=== PATIENT | female | born 1935 | race Caucasian/White ===

== ENCOUNTER 2016-11-07 10:37 | Inpatient (IN) | payer MEDICARE ==
[~2016-11-07 10:37] MED LIST: VANCOMYCIN/NS 1 GM/250 ML 1 GM/250 ML BAG IV ONE
[2016-11-07] MEDS ORDERED: ROCEPHIN/NS 1 GM/50 ML 1 GM/50 ML BAG IV ONE (12:31)
[2016-11-07] MEDS ORDERED: NACL 0.9% 1000 ML 1,000 ML IV ONE (12:31)
[2016-11-07] MEDS ORDERED: CLEOCIN 900 MG/50 mL 900 MG/50 ML BAG IV ONE (12:31)
--- NOTE | 2016-11-07 13:14 | Emergency Department Report ---
ED Neck Pain/Injury HPI - General Chief Complaint: Neck Pain/Injury Stated Complaint: SWOLLEN NECK Time Seen by Provider: 11/07/16 12:19 Mode of arrival: Ambulatory Limitations: No Limitations - History of Present Illness MD Complaint: neck pain -: Gradual Place: home Radiation: left lateral Severity: moderate Severity scale (0 -10): 5 Quality: sharp Consistency: constant Improves With: none Worsens With: none Associated Symptoms: headache, fever. denies: numbness, weakness, vertigo, difficulty walking, swollen glands, nausea, vomiting - Related Data Home Medications Medication Instructions Recorded Confirmed Last Taken Metformin HCl [Glucophage] 1,000 mg PO BID 12/12/14 11/07/16 05/03/16 cloNIDine [Catapres] 0.2 mg PO QHS 06/30/16 11/07/16 Unknown Losartan-Hctz 100-25 mg Tab 1 mg PO ONCE 11/07/16 11/07/16 Unknown Metoprolol Tartrate 25 mg PO BID 11/07/16 11/07/16 Unknown hydrALAZINE 50 mg PO PRN PRN 11/07/16 11/07/16 Unknown Allergies Allergy/AdvReac Type Severity Reaction Status Date / Time No Known Allergies Allergy Unverified 11/09/13 09:52 ED Review of Systems ROS: Stated complaint: SWOLLEN NECK Other details as noted in HPI Comment: All other systems reviewed and negative ED Past Medical Hx - Past Medical History Previous Medical History?: Yes Hx Hypertension: Yes Hx Diabetes: Yes Hx Deep Vein Thrombosis: Yes - Surgical History Past Surgical History?: No - Social History Smoking Status: Never Smoker Substance Use Type: None - Medications Home Medications: Home Medications Medication Instructions Recorded Confirmed Last Taken Type Metformin HCl [Glucophage] 1,000 mg PO BID 12/12/14 11/07/16 05/03/16 History cloNIDine [Catapres] 0.2 mg PO QHS 06/30/16 11/07/16 Unknown History Losartan-Hctz 100-25 mg Tab 1 mg PO ONCE 11/07/16 11/07/16 Unknown History Metoprolol Tartrate 25 mg PO BID 11/07/16 11/07/16 Unknown History hydrALAZINE 50 mg PO PRN PRN 11/07/16 11/07/16 Unknown History ED Physical Exam - General Limitations: No Limitations General appearance: alert, in no apparent distress - Head Head exam: Present: atraumatic, normocephalic - Eye Eye exam: Present: normal appearance - ENT ENT exam: Present: mucous membranes moist - Neck Neck exam: Present: tenderness, full ROM, other (4x 4 mass in the right submandibular area, tender, warmth and redness) - Respiratory Respiratory exam: Present: normal lung sounds bilaterally. Absent: respiratory distress - Cardiovascular Cardiovascular Exam: Present: regular rate, normal rhythm. Absent: systolic murmur, diastolic murmur, rubs, gallop - GI/Abdominal GI/Abdominal exam: Present: soft, normal bowel sounds - Extremities Exam Extremities exam: Present: normal inspection - Back Exam Back exam: Present: normal inspection - Neurological Exam Neurological exam: Present: alert, oriented X3 - Psychiatric Psychiatric exam: Present: normal affect, normal mood - Skin Skin exam: Present: warm, dry, intact, normal color. Absent: rash ED Course Vital Signs 11/07/16 11/07/16 11/07/16 10:44 12:00 12:15 Temperature 98.3 F Pulse Rate 93 H Respiratory Rate Blood Pressure 155/76 180/63 157/61 O2 Sat by Pulse 100 Oximetry 11/07/16 11/07/16 11/07/16 12:30 12:45 13:01 Temperature Pulse Rate Respiratory Rate Blood Pressure 159/66 170/66 127/67 O2 Sat by Pulse Oximetry 11/07/16 11/07/16 11/07/16 14:00 14:16 15:55 Temperature Pulse Rate Respiratory 18 Rate Blood Pressure 216/64 166/67 O2 Sat by Pulse Oximetry 11/07/16 16:10 Temperature Pulse Rate Respiratory Rate Blood Pressure 204/69 O2 Sat by Pulse Oximetry ED Medical Decision Making - Lab Data Result diagrams: 11/07/16 13:36 11/07/16 13:36 Critical care attestation.: If time is entered above; I have spent that time in minutes in the direct care of this critically ill patient, excluding procedure time. ED Disposition Clinical Impression: Abscess of jaw, left, Osteomyelitis of jaw Disposition: OP ADMITTED IP TO THIS HOSP Is pt being admited?: Yes Does the pt Need Aspirin: No Condition: Good Referrals: PRIMARY CARE, [Referring] - 3-5 Days Time of Disposition: 17:13
[2016-11-07 13:54] LABS: Basophils % (Auto) 0.7 % (0.0-1.8); Eosinophils % (Auto) 1.7 % (0.0-4.3); Hematocrit 34.5 % (30.3-42.9); Hemoglobin 11.2 gm/dl (10.1-14.3); Mean Corpuscular HGB Conc 33 % (30-34); Mean Corpuscular Hemoglobin 30 pg (28-32); Mean Corpuscular Volume 92 fl (79-97); Platelet Count 369 K/mm3 (140-440); Red Blood Count 3.75 M/mm3 (3.65-5.03); Red Cell Distribution Width 14.2 % (13.2-15.2)
[2016-11-07 14:03] LABS: Alanine Aminotransferase 8 units/L (7-56); Albumin 3.4 g/dL (3.9-5); Anion Gap 18 mmol/L; Bilirubin,Total < 0.20 mg/dL (0.1-1.2); Blood Urea Nitrogen 22 mg/dL (7-17); Calcium 8.8 mg/dL (8.4-10.2); Carbon Dioxide 22 mmol/L (22-30); Chloride 100.6 mmol/L (98-107); Glucose 251 mg/dL (65-100); Potassium 4.7 mmol/L (3.6-5.0); Sodium 136 mmol/L (137-145); Total Protein 6.7 g/dL (6.3-8.2)
[2016-11-07] MEDS ORDERED: NACL ONE (14:11)
[2016-11-07 14:44] LABS: Alkaline Phosphatase 102 units/L (35-129)
--- NOTE | 2016-11-07 15:13 | Cat Scan Report ---
FINAL REPORT EXAM: CT FACIAL BONES W CON HISTORY: right submandibular mass TECHNIQUE: CT scan of the facial bones with IV contrast. Multiplanar reformations. PRIORS: None. FINDINGS: Mandible on the left is abnormal, with some areas of sclerosis and lucency. There is cortical disruption of the medial mandible involving the mandibular body and the mandibular angle. Extending from this area, caudally and posteriorly, is a masslike lesion, which appears extensively inflamed, with peripheral enhancement and central low density. Maximal cross-sectional size is about 3.5 x 2.8 cm, which sits posterolateral to the left submandibular gland. Several nonenlarged submandibular lymph nodes on the left. No pathologically enlarged lymph nodes seen. No mucosal lesion. Normal appearance of the thyroid gland. Normal appearance of the larynx. Normal epiglottis and bilateral aryepiglottic folds. IMPRESSION: 1. Findings may represent osteomyelitis of the mandible on the left, with adjacent soft tissue abscess. Squamous cell carcinoma with local soft tissue extension is an alternative possibility.
[2016-11-07] MEDS ORDERED: TYLENOL PO PRN (16:39)
[2016-11-07] MEDS ORDERED: DULCOLAX PR PRN (16:39)
[2016-11-07] MEDS ORDERED: DUONEB 0.5 MG-3 MG/3 ML SOLN IH PRN (16:39)
[2016-11-07] MEDS ORDERED: MILK OF MAGNESIA PO PRN (16:39)
[2016-11-07] MEDS ORDERED: ZOFRAN IV PRN (16:39)
[2016-11-07] MEDS ORDERED: VANCOMYCIN/NS 1 GM/250 ML 1 GM/250 ML BAG IV ONE (16:51)
[2016-11-07] MEDS ORDERED: PROVENTIL IH PRN (16:51)
[2016-11-07] MEDS ORDERED: NACL 0.9% 1000 ML IV ONE (16:51)
[2016-11-07] MEDS ORDERED: VANCOMYCIN VIAL 1,000 MG in NACL 0.9% 500 ML 500 ML IV ONE (16:51)
--- NOTE | 2016-11-07 16:54 | History and Physical Report ---
History of Present Illness Chief complaint: My neck hurts History of present illness: 81 YO Female with HTN, DM, presents to ED for evaluation. Pt unable to speak sw[place]ish, Patient niece is at bedside and serves as sand wheeler. Pt has experienced pain in her neck for the past week, with worsening symptoms over the past 48 hours. Pain in 3/10, localized to left jaw, worsened with eating, jaw movement, relieved with rest. Pt denies radiation. No reports of fever, chills, CP, Palpitations, NVD, difficulty swallowing, shortness of breath, hoarseness, choking, drooling, cough, unintentional weight loss, night sweats, hematuria, BRBPR, vertigo, bone pain, prolonged immobility/travel, foreign travel, or recent ill contacts. Past History Past Medical History: diabetes, hypertension Past Surgical History: No surgical history, Other (reviewed) Social history: , lives with family. denies: smoking, alcohol abuse, prescription drug abuse Family history: diabetes, hypertension Medications and Allergies Allergies Allergy/AdvReac Type Severity Reaction Status Date / Time No Known Allergies Allergy Unverified 11/09/13 09:52 Home Medications Medication Instructions Recorded Confirmed Last Taken Type Metformin HCl [Glucophage] 1,000 mg PO BID 12/12/14 11/07/16 05/03/16 History cloNIDine [Catapres] 0.2 mg PO QHS 06/30/16 11/07/16 Unknown History Losartan-Hctz 100-25 mg Tab 1 mg PO ONCE 11/07/16 11/07/16 Unknown History Metoprolol Tartrate 25 mg PO BID 11/07/16 11/07/16 Unknown History hydrALAZINE 50 mg PO PRN PRN 11/07/16 11/07/16 Unknown History Active Meds: Active Medications Acetaminophen (Tylenol) 650 mg PO Q4H PRN PRN Reason: Pain MILD(1-3)/Fever >100.5/MEHTA Albuterol (Proventil) 2.5 mg IH Q4HRT PRN PRN Reason: Shortness Of Breath Bisacodyl (Dulcolax) 10 mg VA QDAY PRN PRN Reason: Constipation unrelieved by MOM Clonidine HCl (Catapres) 0.2 mg PO QHS ANAHY Sodium Chloride (Nacl 0.45% 1000 Ml) 1,000 mls @ 100 mls/hr IV DIRECT ANAHY Cefepime HCl (Maxipime/Ns 1 Gm/100 Ml) 1 gm in 100 mls @ 200 mls/hr IV Q6HR ANAHY PRN Reason: Protocol Levofloxacin/Dextrose (Levaquin 750mg/150ml) 750 mg in 150 mls @ 100 mls/hr IV Q24HR ANAHY PRN Reason: Protocol Vancomycin HCl 1,000 mg/ (Sodium Chloride) 500 mls @ 334 mls/hr IV ONCE ONE PRN Reason: Protocol Stop: 11/07/16 18:20 Magnesium Hydroxide (Milk Of Magnesia) 30 ml PO Q4H PRN PRN Reason: Constipation Miscellaneous Medication (Hydralazine) 50 mg PO Q12HR ANAHY Miscellaneous Medication (Losartan-Hctz 100-25 Mg Tab) 1 mg PO ONCE ANAHY Miscellaneous Medication (Metoprolol Tartrate) 25 mg PO BID ANAHY Ondansetron HCl (Zofran) 4 mg IV Q8H PRN PRN Reason: N/V unrelieved by Reglan Sodium Chloride (Nacl 0.9% 1000 Ml) 1,560 ml 30 ml/kg (1560 ml) IV ONCE ONE Stop: 11/07/16 16:52 Vancomycin HCl (Vancomycin Pharmacy To Dose) 1 each IV PKCONSULT ANAHY PRN Reason: Protocol Review of Systems Constitutional: other (jaw pain) Exam - Constitutional Vitals: Temp Pulse Resp BP Pulse Ox 98.3 F 93 H 18 204/69 100 11/07/16 10:44 11/07/16 10:44 11/07/16 15:55 11/07/16 16:10 11/07/16 10:44 General appearance: Present: no acute distress - EENT Eyes: Present: PERRL ENT: hearing intact, clear oral mucosa, other (Left jaw erythema,edema at angle of mandible, no fluctuance, ) - Neck Neck: Present: supple, normal ROM - Respiratory Respiratory effort: normal Respiratory: bilateral: CTA - Cardiovascular Heart Sounds: Present: S1 & S2. Absent: rub, click - Extremities Extremities: pulses symmetrical, No edema Peripheral Pulses: within normal limits - Abdominal General gastrointestinal: Present: soft, non-tender, non-distended, normal bowel sounds Female genitourinary: Present: normal - Integumentary Integumentary: Present: clear, warm, dry - Musculoskeletal Musculoskeletal: gait normal, strength equal bilaterally - Psychiatric Psychiatric: appropriate mood/affect, intact judgment & insight - Neurologic Neurologic: CNII-XII intact, moves all extremities Results - Labs CBC & Chem 7: 11/07/16 13:36 11/07/16 13:36 Labs: Abnormal lab results 11/07/16 11/07/16 Range/Units 13:36 13:36 WBC 13.0 H (4.5-11.0) K/mm3 [place] % (Auto) 8.2 H (0.0-7.3) % [place] # 1.1 H (0.0-0.8) K/mm3 Seg Neutrophils # 8.7 H (1.8-7.7) K/mm3 Sodium 136 L (137-145) mmol/L BUN 22 H (7-17) mg/dL Glucose 251 H (65-100) mg/dL Albumin 3.4 L (3.9-5) g/dL Assessment and Plan - Patient Problems (1) Sepsis Current Visit: Yes Status: Acute Qualifiers: Sepsis type: S Plan to address problem: IV abx, IVF, supportive care, serial lactate levels, blood cultures, (2) Abscess of jaw, left Current Visit: Yes Status: Acute Plan to address problem: IV abx, supportive care, surgery consult (3) Osteomyelitis of jaw Current Visit: Yes Status: Acute Plan to address problem: IV abx, ivf, supportive care, (4) Accelerated hypertension Current Visit: Yes Status: Acute Plan to address problem: resume home medication, supportive care, monitor bp q shift (5) Diabetes Current Visit: Yes Status: Acute Qualifiers: Diabetes mellitus type: D Diabetes mellitus complication status: D Diabetes mellitus complication detail: D Diabetic retinopathy severity: D Proliferative retinopathy type: P Diabetes mellitus macular edema: D 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
[2016-11-07] MEDS ORDERED: VANCOMYCIN PHARMACY TO DOSE IV SCH (17:00)
[2016-11-07] MEDS ORDERED: LOSARTAN HCTZ PO SCH (17:00)
[2016-11-07] MEDS ORDERED: MAXIPIME/NS 1 GM/100 ML 1 GM/100 ML BAG IV SCH (18:00)
[2016-11-07] MEDS ORDERED: MAXIPIME IV SCH (18:00)
[2016-11-07] MEDS ORDERED: NACL 0.9% IV SCH (18:00)
[2016-11-07] MEDS: COZAAR PO SCH (18:04)
[2016-11-07] MEDS: HCTZ PO SCH (18:05)
[2016-11-07] MEDS ORDERED: D50W (25GM) IV PRN (18:12)
--- NOTE | 2016-11-07 18:42 | Admit Criteria Form ---
Admission Criteria Documentation: SEPSIS and OTHER FEBRILE ILLNESS, W/O FOCAL INFECTION Clinical Indications for Admission to Inpatient Care ( Place 'X' for any and all applicable criteria): Admission is indicated for ANY ONE of the following (1)(2)(3)(4): [ ] I. Bacteremia [X ]II. Suspected or identified specific infection requiring hospitalization (eg, meningitis, endocarditis) [ ]III. Hemodynamic instability [ ]IV. Altered mental status [ ]V. Failure or unavailability of outpatient antimicrobial treatment [ ]. Hypoxemia [ ]VII. Seizures [ ]VIII. High-risk febrile neutropenia [ ]IX. Need for parenteral antibiotic in patient who is likely to abuse vascular access device (eg, injection drug user) [A](7) [ ]X. Temperature greater than 104.9 degrees F (40.5 degrees C) (oral) [X ]XI. Inpatient admission required rather than observation care because of ANY ONE of the following: [ ]1) Specific infection identified that is too severe for outpatient treatment or observation care trial [ ]2) Metabolic disorder (eg, hypoglycemia, hyperglycemia, metabolic acidosis) that is severe or persistent [ ]3) Temperature greater than 103.1 degrees F (39.5 degrees C) ( oral) that is not responsive to observation care treatment [ ]4) IV fluid to replace significant ongoing (eg, for over 24 hours) losses (> 3 L/m2 per day) [ ]5) Supplemental oxygen or respiratory treatments for over 24 hours that is performable only in acute inpatient setting [X ]6) Parenteral nutrition regimen need that must be implemented on inpatient basis [ ]7) Strict or protective (eg, laminar flow) isolation [ X]8) Other condition, treatment or monitoring requiring inpatient admission Extended stay beyond goal length of stay may be needed for(1)(3) [ ]a) Sepsis or septic shock(22) [ ]b) Positive blood cultures [ ]c) Insufficient oral intake [ ]d) High-risk febrile neutropenia(29)(30) [ ]e) Continued fever and clinical instability [ ]f) Clinically active comorbid illness (e.g,heart failure, renal failure , diabetes) The original [facility] content created by [employer] has been revised. The portions of the content which have been revised are identified through the use of italic text or in bold, and [employer] has neither reviewed nor approved the modified material. All other unmodified content is copyright [facility]. Please see references footnoted in the original [facility] edition 2016 Admission Criteria Met: Yes
[2016-11-07] MEDS ORDERED: CATAPRES ONE (19:13)
[2016-11-07] MEDS ORDERED: NON-FORMULARY (Metoprolol Tartrate 25 MG) PO SCH (22:00)
[2016-11-07] MEDS ORDERED: NON-FORMULARY (Hydralazine 50 MG) PO SCH (22:00)
[2016-11-08] MEDS: LOPRESSOR PO SCH ×3 (00:03→23:00)
[2016-11-08] MEDS: CATAPRES PO SCH ×2 (00:04→22:59)
[2016-11-08] MEDS: MAXIPIME/NS 1 GM/100 ML 1 GM/100 ML BAG IV SCH ×3 (00:04→22:57)
[2016-11-08] MEDS: APRESOLINE PO SCH ×3 (00:04→22:58)
[2016-11-08] MEDS: NACL 0.45% 1000 ML 1,000 ML IV SCH ×2 (00:05→16:12)
[2016-11-08 07:20] LABS: Basophils % (Auto) 0.7 % (0.0-1.8); Eosinophils % (Auto) 2.2 % (0.0-4.3); Hematocrit 29.7 % (30.3-42.9); Mean Corpuscular HGB Conc 34 % (30-34); Mean Corpuscular Hemoglobin 31 pg (28-32); Mean Corpuscular Volume 91 fl (79-97); Platelet Count 334 K/mm3 (140-440); Red Blood Count 3.25 M/mm3 (3.65-5.03); Red Cell Distribution Width 14.1 % (13.2-15.2); White Blood Count 10.5 K/mm3 (4.5-11.0)
[2016-11-08 07:39] LABS: Anion Gap 18 mmol/L; BUN/Creatinine Ratio 15.55; Blood Urea Nitrogen 14 mg/dL (7-17); Calcium 8.3 mg/dL (8.4-10.2); Carbon Dioxide 20 mmol/L (22-30); Chloride 105.3 mmol/L (98-107); Glucose 180 mg/dL (65-100); Sodium 139 mmol/L (137-145)
[2016-11-08] MEDS ORDERED: VANCOMYCIN/NS 1 GM/250 ML 1 GM/250 ML BAG IV ONE ×2 (08:00)
[2016-11-08] MEDS ORDERED: LEVAQUIN 750MG/150ML 750 MG/150 ML BAG IV SCH ×2 (10:00)
[2016-11-08] MEDS: NOVOLOG SUB-Q SCH ×4 (10:19→23:17)
[2016-11-08] MEDS: HCTZ PO SCH (10:26)
[2016-11-08] MEDS: COZAAR PO SCH (10:29)
--- NOTE | 2016-11-08 12:35 | Progress Note ---
Assessment and Plan Assessment and plan: Sepsis Abscess of the left jaw Osteomyelitis of the jaw Medical hypertension Diabetes mellitus - IV antibiotics, IV fluid, supportive care - Surgery consult was placed but Dr boyer said he is not going to do the procedure - I put a consult for IR for abscess drainage, biopsy, culture - Resume Home BP medications - Patient is on Sliding scale insulin, accu check Prophylaxis - Lovenox History Interval history: Patient was seen and evaluated this morning, patient doesn't speak [place], she has swelling and tenderness on the left jaw. Hospitalist Physical - Physical exam Narrative exam: Not in cardiopulmonary distress. The patient appeared well nourished and normally developed. Vital signs as documented. Head exam is unremarkable. No scleral icterus . Neck swelling and tenderness on the left jaw. Lungs are clear to auscultation. Cardiac exam reveals regular rate and Rhythm. First and second heart sounds normal. No murmurs, rubs or gallops. Abdominal exam reveals normal bowel sounds, no masses, no organomegaly and no aortic enlargement. Extremities are nonedematous and both femoral and pedal pulses are normal. 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 No focal weakness. - Constitutional Vitals: Temp Pulse Resp BP Pulse Ox 98.8 F 82 18 179/74 97 11/08/16 07:00 11/08/16 10:29 11/08/16 07:00 11/08/16 10:29 11/08/16 11:27 General appearance: Present: no acute distress Results - Labs CBC & Chem 7: 11/08/16 06:47 11/08/16 06:47 Labs: Laboratory Last Values WBC 10.5 K/mm3 (4.5-11.0) 11/08/16 06:47 RBC 3.25 M/mm3 (3.65-5.03) L 11/08/16 06:47 Hgb 10.0 gm/dl (10.1-14.3) L 11/08/16 06:47 Hct 29.7 % (30.3-42.9) L 11/08/16 06:47 MCV 91 fl (79-97) 11/08/16 06:47 MCH 31 pg (28-32) 11/08/16 06:47 MCHC 34 % (30-34) 11/08/16 06:47 RDW 14.1 % (13.2-15.2) 11/08/16 06:47 Plt Count 334 K/mm3 (140-440) 11/08/16 06:47 Lymph % (Auto) 24.0 % (13.4-35.0) 11/08/16 06:47 [place] % (Auto) 6.2 % (0.0-7.3) 11/08/16 06:47 Eos % (Auto) 2.2 % (0.0-4.3) 11/08/16 06:47 Baso % (Auto) 0.7 % (0.0-1.8) 11/08/16 06:47 Lymph # 2.5 K/mm3 (1.2-5.4) 11/08/16 06:47 [place] # 0.7 K/mm3 (0.0-0.8) 11/08/16 06:47 Eos # 0.2 K/mm3 (0.0-0.4) 11/08/16 06:47 Baso # 0.1 K/mm3 (0.0-0.1) 11/08/16 06:47 Seg Neutrophils % 66.9 % (40.0-70.0) 11/08/16 06:47 Seg Neutrophils # 7.0 K/mm3 (1.8-7.7) 11/08/16 06:47 Sodium 139 mmol/L (137-145) 11/08/16 06:47 Potassium 4.0 mmol/L (3.6-5.0) 11/08/16 06:47 Chloride 105.3 mmol/L (98-107) 11/08/16 06:47 Carbon Dioxide 20 mmol/L (22-30) L 11/08/16 06:47 Anion Gap 18 mmol/L 11/08/16 06:47 BUN 14 mg/dL (7-17) 11/08/16 06:47 Creatinine 0.9 mg/dL (0.7-1.2) 11/08/16 06:47 Estimated GFR > 60 ml/min 11/08/16 06:47 BUN/Creatinine Ratio 15.55 % 11/08/16 06:47 Glucose 180 mg/dL (65-100) H 11/08/16 06:47 POC Glucose 185 (70-105) H 11/08/16 06:18 Lactic Acid 1.20 mmol/L (0.7-2.0) 11/08/16 06:47 Calcium 8.3 mg/dL (8.4-10.2) L 11/08/16 06:47 Total Bilirubin < 0.20 mg/dL (0.1-1.2) 11/07/16 13:36 AST 12 units/L (5-40) 11/07/16 13:36 ALT 8 units/L (7-56) 11/07/16 13:36 Alkaline Phosphatase 102 units/L (35-129) 11/07/16 13:36 Total Protein 6.7 g/dL (6.3-8.2) 11/07/16 13:36 Albumin 3.4 g/dL (3.9-5) L 11/07/16 13:36 Albumin/Globulin Ratio 1.0 % 11/07/16 13:36 - Imaging and Cardiology CT Scan - head: report reviewed (Left jaw abscess/mass)
[2016-11-08] MEDS: APRESOLINE IV PRN ×2 (14:51→18:29)
[2016-11-08] MEDS: VANCOMYCIN/NS 1 GM/250 ML 1 GM/250 ML BAG IV SCH (16:14)
[2016-11-09 07:58] LABS: Basophils % (Auto) 0.5 % (0.0-1.8); Eosinophils % (Auto) 1.6 % (0.0-4.3); Hematocrit 32.5 % (30.3-42.9); Hemoglobin 10.8 gm/dl (10.1-14.3); Mean Corpuscular HGB Conc 33 % (30-34); Mean Corpuscular Hemoglobin 30 pg (28-32); Mean Corpuscular Volume 90 fl (79-97); Platelet Count 373 K/mm3 (140-440); Red Blood Count 3.62 M/mm3 (3.65-5.03); Red Cell Distribution Width 14.2 % (13.2-15.2); White Blood Count 12.7 K/mm3 (4.5-11.0)
[2016-11-09 08:04] LABS: Calcium 8.8 mg/dL (8.4-10.2); Chloride 103.3 mmol/L (98-107); Potassium 3.7 mmol/L (3.6-5.0)
[2016-11-09] MEDS: NOVOLOG SUB-Q SCH ×2 (08:36→12:44)
[2016-11-09] MEDS: MAXIPIME/NS 1 GM/100 ML 1 GM/100 ML BAG IV SCH (09:30)
[2016-11-09] MEDS: APRESOLINE PO SCH (09:34)
[2016-11-09] MEDS: HCTZ PO SCH (09:35)
[2016-11-09] MEDS: LOPRESSOR PO SCH (09:35)
[2016-11-09] MEDS: COZAAR PO SCH (09:39)
[2016-11-09] MEDS: VANCOMYCIN/NS 1 GM/250 ML 1 GM/250 ML BAG IV SCH (12:19)
[2016-11-09] MEDS: APRESOLINE IV PRN (12:41)
--- NOTE | 2016-11-09 13:07 | Progress Note ---
Assessment and Plan Assessment and plan: Left jaw abscess. Continue Cefepime Levaquin and vancomycin. For IR drainage, biopsy today. Sepsis. On multiple Antibiotics. Diabetes mellitus type 2. Fingerstick glucose before every meal and at bedtime Full code status Hypertensive urgency. Increase dose of Clonidine to 0.2 mg by mouth every 12 hours. Add hydralazine 20 mg IV every 4 hours when necessary leukocytosis History Interval history: Pain, mass left neck and jaw area Hospitalist Physical - Physical exam Narrative exam: Gen appearance: Not in acute distress, HEENT: Normocephalic, atraumatic Neck:Large mass left part of neck to jaw, tender Lungs : Clear to auscultation bilaterally, No crackles or wheeze Heart :S1-S2 regular, no murmurs, rubs or gallop Abdomen: soft non-tender, non-distended,normal bowel sounds Extremities:no edema no clubbing or cyanosis, Neuro: Awake, alert, - Constitutional Vitals: Temp Pulse Resp BP Pulse Ox 98.9 F 78 20 199/84 98 11/09/16 11:00 11/09/16 11:00 11/09/16 11:00 11/09/16 12:41 11/09/16 07:00 General appearance: Present: no acute distress Results - Labs CBC & Chem 7: 11/09/16 07:16 11/09/16 07:16 Labs: Laboratory Last Values WBC 12.7 K/mm3 (4.5-11.0) H 11/09/16 07:16 RBC 3.62 M/mm3 (3.65-5.03) L 11/09/16 07:16 Hgb 10.8 gm/dl (10.1-14.3) 11/09/16 07:16 Hct 32.5 % (30.3-42.9) 11/09/16 07:16 MCV 90 fl (79-97) 11/09/16 07:16 MCH 30 pg (28-32) 11/09/16 07:16 MCHC 33 % (30-34) 11/09/16 07:16 RDW 14.2 % (13.2-15.2) 11/09/16 07:16 Plt Count 373 K/mm3 (140-440) 11/09/16 07:16 Lymph % (Auto) 19.6 % (13.4-35.0) 11/09/16 07:16 [place] % (Auto) 7.3 % (0.0-7.3) 11/09/16 07:16 Eos % (Auto) 1.6 % (0.0-4.3) 11/09/16 07:16 Baso % (Auto) 0.5 % (0.0-1.8) 11/09/16 07:16 Lymph # 2.5 K/mm3 (1.2-5.4) 11/09/16 07:16 [place] # 0.9 K/mm3 (0.0-0.8) H 11/09/16 07:16 Eos # 0.2 K/mm3 (0.0-0.4) 11/09/16 07:16 Baso # 0.1 K/mm3 (0.0-0.1) 11/09/16 07:16 Seg Neutrophils % 71.0 % (40.0-70.0) H 11/09/16 07:16 Seg Neutrophils # 9.0 K/mm3 (1.8-7.7) H 11/09/16 07:16 Sodium 137 mmol/L (137-145) 11/09/16 07:16 Potassium 3.7 mmol/L (3.6-5.0) 11/09/16 07:16 Chloride 103.3 mmol/L (98-107) 11/09/16 07:16 Carbon Dioxide 19 mmol/L (22-30) L 11/09/16 07:16 Anion Gap 18 mmol/L 11/09/16 07:16 BUN 10 mg/dL (7-17) 11/09/16 07:16 Creatinine 1.0 mg/dL (0.7-1.2) 11/09/16 07:16 Estimated GFR 53 ml/min 11/09/16 07:16 BUN/Creatinine Ratio 10.00 % 11/09/16 07:16 Glucose 162 mg/dL (65-100) H 11/09/16 07:16 POC Glucose 145 (70-105) H 11/09/16 11:52 Lactic Acid 1.20 mmol/L (0.7-2.0) 11/08/16 06:47 Calcium 8.8 mg/dL (8.4-10.2) 11/09/16 07:16 Total Bilirubin < 0.20 mg/dL (0.1-1.2) 11/07/16 13:36 AST 12 units/L (5-40) 11/07/16 13:36 ALT 8 units/L (7-56) 11/07/16 13:36 Alkaline Phosphatase 102 units/L (35-129) 11/07/16 13:36 Total Protein 6.7 g/dL (6.3-8.2) 11/07/16 13:36 Albumin 3.4 g/dL (3.9-5) L 11/07/16 13:36 Albumin/Globulin Ratio 1.0 % 11/07/16 13:36
[2016-11-09] MEDS ORDERED: APRESOLINE IV PRN (15:10)
[2016-11-09] MEDS ORDERED: CATAPRES PO SCH (16:00)
[2016-11-09 16:51] VITALS: BP 112/61
--- NOTE | 2016-11-09 21:42 | Discharge Summary ---
Providers - Providers Date of Admission: 11/07/16 16:39 Attending physician: JAYMIE COFFEY 11/07/16 16:53 Consult to Physician [CONS] Routine Consulting Provider: SHERRI MCCULLOUGH Reason For Exam: jaw abscess Place consult to:: general surgery Notified:: office Phone number called:: [phone] Was contact made?: Yes If yes, spoke with:: jerry Time called:: 09:45 Comment:: office called back @ 0914 to say that is not speciality/need ent or plastic 11/08/16 12:28 Consult to Physician [CONS] Routine Consulting Provider: LISSET ORTIZ Reason For Exam: left jaw abscess/ Mass Place consult to:: Interventional Radiology Notified:: DR. RICKS Phone number called:: INHOUSE Was contact made?: Yes If yes, spoke with:: SR. RICKS Time called:: 09:07 Comment:: drainage/biopsy/ PAT NOTIFIED Primary care physician: GE JESSICA Hospitalization Condition: Good Disposition: LEFT AGAINST MEDICAL ADVICE Exam - Constitutional Vitals: Temp Pulse Resp BP Pulse Ox 99.7 F H 71 71 H 112/61 98 11/09/16 16:00 11/09/16 16:00 11/09/16 16:00 11/09/16 16:00 11/09/16 13:01 Plan Follow up with: PRIMARY CAREMD [Referring] - 3-5 Days
[2016-11-09] MEDS ORDERED: HEPARIN SUB-Q SCH (22:00)
--- NOTE | 2016-11-10 07:32 | XRay Report ---
PORTABLE CHEST: SOB An AP portable view of the chest demonstrates a normal cardiac contour considering the limits of this technique. The lungs are clear with no evidence of infiltrate, fluid or failure. IMPRESSION: Normal portable chest.
--- NOTE | 2016-11-11 08:23 | Ultrasound Report ---
Procedure: Limited sonography of the left jaw and submandibular region. Indication: This patient presented with fevers and pain along her left mandible. CT of the face demonstrated a possible left submandibular abscess. Ultrasound-guided aspiration was requested to further guide treatment. Technique: Ly scale and color Doppler sonography. Findings: Limited sonography of the left submandibular region demonstrates extensive superficial soft tissue fluid infiltration, consistent with edema. There is no drainable fluid collection or solid entity to biopsy.
== END 2016-11-09 20:05 | disposition left against medical advice (07) | DRG 872 ==
LOC: ED 10:37 → 3A 16:39
PROVIDERS: ADMIT Internal Medicine; ATTEND Internal Medicine
DX: A41.9 Sepsis, unspecified organism (principal); M86.8X9 Other osteomyelitis, unspecified sites; E11.9 Type 2 diabetes mellitus without complications; M27.2 Inflammatory conditions of jaws; I16.0 Hypertensive urgency; I10 Essential (primary) hypertension; Z79.84 Long term (current) use of oral hypoglycemic drugs; Z86.718 Personal history of other venous thrombosis and embolism; Z79.01 Long term (current) use of anticoagulants; Z82.49 Family history of ischemic heart disease and other diseases of the circulatory system; Z83.3 Family history of diabetes mellitus; Z53.21 Procedure and treatment not carried out due to patient leaving prior to being seen by health care provider
CPT/HCPCS: 36415; 70487; 71010; 76536; 80048; 80053; 82140; 82962; 85025; 87040; 94760; 96361; 96365; 96368; J0360; J0692; J0696; J1815; J1956; J3370; J7030; Q9967

== ENCOUNTER 2017-12-28 07:52 | Inpatient (IN) | payer MEDICARE ==
[2017-12-28] MEDS ORDERED: D50W (25GM) Syringe IV ONE ×2 (09:19→11:00)
[2017-12-28 09:56] LABS: Hematocrit 37.3 % (30.3-42.9); Hemoglobin 12.3 gm/dl (10.1-14.3); Mean Corpuscular HGB Conc 33 % (30-34); Mean Corpuscular Hemoglobin 29 pg (28-32); Mean Corpuscular Volume 89 fl (79-97); Platelet Count 405 K/mm3 (140-440); Red Blood Count 4.19 M/mm3 (3.65-5.03)
--- NOTE | 2017-12-28 10:15 | Emergency Department Report ---
HPI - General Chief Complaint: Hypoglycemia Time Seen by Provider: 12/28/17 09:56 - HPI HPI: Room 8 The patient is a 82-year-old female presenting with chief complaint of altered mental status. The patient last took her metformin at 07:00 yesterday. This morning at 04:00 the patient ate a small amount of rice. Family states at 06: 00 the patient took her Lyrica was talking to family. Approximately 06:015/06: 30 the patient became "unresponsive." Family states the patient was looking around reaching for objects that were not there. The patient was mumbling and not making sense. More family was called and eventually alerted EMS. Upon arrival EMS found the patient to be hypoglycemic with a glucose of 27. Patient was administered 250 mils of D10 and the blood sugar reportedly increased to 210 and the patient improved. In the ED the patient was found to be hypoglycemic again at 42 and so an amp of D50 was administered. The patient is back to her mental baseline and does not have any complaints. Family states that the patient has had "stiff legs" for 2 months. 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 Not currently on anticoagulation) - Surgical History Past Surgical History?: No - Family History Family history: no significant - Social History Smoking Status: Never Smoker Substance Use Type: None - Medications Home Medications: Home Medications Medication Instructions Recorded Confirmed Last Taken Type Metformin HCl [Glucophage] 1,000 mg PO BID 12/12/14 12/28/17 05/03/16 History Pregabalin [Lyrica] 75 mg PO BID 12/28/17 12/28/17 Unknown History amLODIPine [Norvasc] 10 mg PO DAILY 12/28/17 12/28/17 Unknown History cloNIDine [Catapres] 0.1 mg PO BID 12/28/17 12/28/17 Unknown History glipiZIDE [Glucotrol] 10 mg PO QDAY 12/28/17 12/28/17 Unknown History glipiZIDE [glipiZIDE ER] 5 mg PO QAM 12/28/17 12/28/17 Unknown History ED Review of Systems ROS: Stated complaint: HYPOGLYCEMIA Other details as noted in HPI Constitutional: no symptoms reported Eyes: denies: eye pain ENT: denies: throat pain Cardiovascular: denies: chest pain Endocrine: other (hypoglycemia) Gastrointestinal: denies: abdominal pain Genitourinary: denies: dysuria Musculoskeletal: denies: back pain Neurological: confusion. denies: headache Physical Exam - Physical Exam Vital Signs: Vital Signs 12/28/17 12/28/17 12/28/17 08:09 08:15 08:30 Temperature Pulse Rate 90 87 Respiratory 17 16 15 Rate Blood Pressure 187/68 187/68 O2 Sat by Pulse 100 Oximetry 12/28/17 12/28/17 12/28/17 08:35 08:45 09:01 Temperature 97.8 F Pulse Rate 90 85 89 Respiratory 16 18 17 Rate Blood Pressure 187/70 185/61 188/73 O2 Sat by Pulse 99 99 99 Oximetry Physical Exam: GENERAL: The patient is well-developed well-nourished female lying on stretcher not appearing to be in acute distress. [] HEENT: Normocephalic. Atraumatic. Extraocular motions are intact. Patient has moist mucous membranes. NECK: Supple. Trachea midline CHEST/LUNGS: Clear to auscultation. There is no respiratory distress noted. HEART/CARDIOVASCULAR: Regular. There is no tachycardia. There is a 3/6 systolic murmur. ABDOMEN: Abdomen is soft, nontender. Patient has normal bowel sounds. There is no abdominal distention. SKIN: There is pale erythema surrounding bilateral lower extremities. There is trace bilateral lower extremity pretibial edema. There is no diaphoresis. NEURO: The patient is awake, alert, and oriented. The patient is cooperative. The patient has no focal neurologic deficits. The patient has normal speech. 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 There is no evidence of acute injury. ED Course Vital Signs 12/28/17 12/28/17 12/28/17 08:09 08:15 08:30 Temperature Pulse Rate 90 87 Respiratory 17 16 15 Rate Blood Pressure 187/68 187/68 O2 Sat by Pulse 100 Oximetry 12/28/17 12/28/17 12/28/17 08:35 08:45 09:01 Temperature 97.8 F Pulse Rate 90 85 89 Respiratory 16 18 17 Rate Blood Pressure 187/70 185/61 188/73 O2 Sat by Pulse 99 99 99 Oximetry ED Medical Decision Making - Lab Data Result diagrams: 12/28/17 09:30 12/28/17 09:30 Laboratory Tests 12/28/17 12/28/17 12/28/17 08:37 09:30 09:30 WBC 22.2 H RBC 4.19 Hgb 12.3 Hct 37.3 MCV 89 MCH 29 MCHC 33 RDW 15.0 Plt Count 405 Add Manual Diff Complete Total Counted 100 Seg Neuts % (Manual) 79.0 H Band Neutrophils % 5.0 Lymphocytes % (Manual) 9.0 L Reactive Lymphs % (Man) 0 Monocytes % (Manual) 7.0 Eosinophils % (Manual) 0 Basophils % (Manual) 0 Metamyelocytes % 0 Myelocytes % 0 Promyelocytes % 0 Blast Cells % 0 Nucleated RBC % Not Reportable Seg Neutrophils # Man 17.5 H Band Neutrophils # 1.1 Lymphocytes # (Manual) 2.0 Abs React Lymphs (Man) 0.0 Monocytes # (Manual) 1.6 H Eosinophils # (Manual) 0.0 Basophils # (Manual) 0.0 Metamyelocytes # 0.0 Myelocytes # 0.0 Promyelocytes # 0.0 Blast Cells # 0.0 WBC Morphology Not Reportable Hypersegmented Neuts Not Reportable Hyposegmented Neuts Not Reportable Hypogranular Neuts Not Reportable Smudge Cells Not Reportable Toxic Granulation Not Reportable Toxic Vacuolation Not Reportable Dohle Bodies Not Reportable Pelger-Huet Anomaly Not Reportable Dhara Rods Not Reportable Platelet Estimate Consistent w auto Clumped Platelets Not Reportable Plt Clumps, EDTA Not Reportable Large Platelets Not Reportable Giant Platelets Not Reportable Platelet Satelliting Not Reportable Plt Morphology Comment Not Reportable RBC Morphology Normal Dimorphic RBCs Not Reportable Polychromasia Not Reportable Hypochromasia Not Reportable Poikilocytosis Not Reportable Anisocytosis Not Reportable Microcytosis Not Reportable Macrocytosis Not Reportable Spherocytes Not Reportable Pappenheimer Bodies Not Reportable Sickle Cells Not Reportable Target Cells Not Reportable Tear Drop Cells Not Reportable Ovalocytes Not Reportable Helmet Cells Not Reportable [place] Bodies Not Reportable [place] Rings Not Reportable [place] Cells Not Reportable Bite Cells Not Reportable Crenated Cell Not Reportable Elliptocytes Not Reportable Acanthocytes (Spur) Not Reportable Rouleaux Not Reportable Hemoglobin C Crystals Not Reportable Schistocytes Not Reportable Malaria parasites Not Reportable Keshav Bodies Not Reportable Hem Pathologist Commnt No Sodium 134 L Potassium 3.3 L Chloride 100.0 Carbon Dioxide 21 L Anion Gap 16 BUN 24 H Creatinine 1.5 H Estimated GFR 33 BUN/Creatinine Ratio 16 Glucose 120 H POC Glucose 42 L Calcium 9.0 Urine Color Urine Turbidity Urine pH Ur Specific [place] Urine Protein Urine Glucose (UA) Urine Ketones Urine Blood Urine Nitrite Urine Bilirubin Urine Urobilinogen Ur Leukocyte Esterase Urine WBC (Auto) Urine RBC (Auto) U Epithel Cells (Auto) Urine Bacteria (Auto) 12/28/17 12/28/17 12/28/17 10:51 12:17 12:20 WBC RBC Hgb Hct MCV MCH MCHC RDW Plt Count Add Manual Diff Total Counted Seg Neuts % (Manual) Band Neutrophils % Lymphocytes % (Manual) Reactive Lymphs % (Man) Monocytes % (Manual) Eosinophils % (Manual) Basophils % (Manual) Metamyelocytes % Myelocytes % Promyelocytes % Blast Cells % Nucleated RBC % Seg Neutrophils # Man Band Neutrophils # Lymphocytes # (Manual) Abs React Lymphs (Man) Monocytes # (Manual) Eosinophils # (Manual) Basophils # (Manual) Metamyelocytes # Myelocytes # Promyelocytes # Blast Cells # WBC Morphology Hypersegmented Neuts Hyposegmented Neuts Hypogranular Neuts Smudge Cells Toxic Granulation Toxic Vacuolation Dohle Bodies Pelger-Huet Anomaly Dhara Rods Platelet Estimate Clumped Platelets Plt Clumps, EDTA Large Platelets Giant Platelets Platelet Satelliting Plt Morphology Comment RBC Morphology Dimorphic RBCs Polychromasia Hypochromasia Poikilocytosis Anisocytosis Microcytosis Macrocytosis Spherocytes Pappenheimer Bodies Sickle Cells Target Cells Tear Drop Cells Ovalocytes Helmet Cells [place] Bodies [place] Rings Korina Cells Bite Cells Crenated Cell Elliptocytes Acanthocytes (Spur) Rouleaux Hemoglobin C Crystals Schistocytes Malaria parasites Keshav Bodies Hem Pathologist Commnt Sodium Potassium Chloride Carbon Dioxide Anion Gap BUN Creatinine Estimated GFR BUN/Creatinine Ratio Glucose POC Glucose 42 L 134 H Calcium Urine Color Yellow Urine Turbidity Clear Urine pH 5.0 Ur Specific [place] 1.013 Urine Protein 100 mg/dl Urine Glucose (UA) 150 Urine Ketones Neg Urine Blood Neg Urine Nitrite Neg Urine Bilirubin Neg Urine Urobilinogen 2.0 Ur Leukocyte Esterase Neg Urine WBC (Auto) 3.0 Urine RBC (Auto) 2.0 U Epithel Cells (Auto) 7.0 Urine Bacteria (Auto) 4+ - Radiology Data Radiology results: report reviewed (bilateral lower extremity Dopplers), image reviewed (bilateral lower extremity Dopplers) LEAH CHARLES Female : 1935 [facility]# [id number] 12/28/17 13:45 - Radiology Dept. Note by FREDERICK ARIZA [facility] Num: [id number] : 1935 Patient Age: 82 VASCULAR LAB.PRELIMINARY REPORT. BLE VENOUS DUPLEX DONE. NO EVIDENCE OF DVT/SVT IN VESSELS VISUALIZED. SOFT TISSUE CHANGES SEEN IN BOTH KNEES. Initialized on 12/28/17 13:45 - END OF NOTE - Differential Diagnosis hypoglycemia, DVTs, cellulitis Critical care attestation.: If time is entered above; I have spent that time in minutes in the direct care of this critically ill patient, excluding procedure time. ED Disposition Clinical Impression: Hypoglycemia, Leukocytosis Disposition: OP ADMIT IP TO THIS HOSP Is pt being admited?: Yes Does the pt Need Aspirin: Yes Condition: Fair Referrals: PRIMARY CARE, [Primary Care Provider] - 3-5 Days Time of Disposition: 14:22 (hospitalist notified (Dr Alvarado))
[2017-12-28 10:28] LABS: Band Neutrophils # (Manual) 1.1 K/mm3; Basophils % (Manual) 0 % (0.0-1.8); Eosinophils % (Manual) 0 % (0.0-4.3); Total Cells Counted 100
[2017-12-28 10:29] LABS: Platelet Estimate Consistent w Auto; RBC Morphology Normal
[2017-12-28 13:14] LABS: Bacteria,Urine 4+ /HPF (Negative); Bilirubin,Urine NEG (Negative); Blood,Urine NEG (Negative); Color,Urine Yellow (Yellow)
--- NOTE | 2017-12-28 14:24 | History and Physical Report ---
History of Present Illness Chief complaint: she got confused History of present illness: 82 YO Female with HTN, DM, DVT Not currently on anticoagulation presents to ED for evaluation. Pt is confused and unable to provide detailed history. Pt history taken from ED staff, And EMS, and patient family. per family, the patient was found to be confused and subsequently became unresponsive around 0630 hrs. Family states the patient was looking around reaching for objects that were not there, with nonsensical speech. EMS notified and upon arrival the patient was found to be hypoglycemic with a glucose of 27. Patient was administered D10 and the blood sugar reportedly increased to 210 and the patient improved. Pt transported to [facility] for further care and evaluation. Pt seen and evaluated in ED and found to be hypoglycemic again, as well hs encephalopathic with evidence of sepsis. Pt initiated on sepsis protocol, and admitted to [facility] unit. Past History Past Medical History: diabetes, DVT, hypertension Past Surgical History: No surgical history, Other (reviewed) Social history: , lives with family. denies: smoking, alcohol abuse, prescription drug abuse Family history: diabetes, hypertension Medications and Allergies Allergies Allergy/AdvReac Type Severity Reaction Status Date / Time No Known Allergies Allergy Unverified 11/09/13 09:52 Home Medications Medication Instructions Recorded Confirmed Last Taken Type Metformin HCl [Glucophage] 1,000 mg PO BID 12/12/14 12/28/17 05/03/16 History Pregabalin [Lyrica] 75 mg PO BID 12/28/17 12/28/17 Unknown History amLODIPine [Norvasc] 10 mg PO DAILY 12/28/17 12/28/17 Unknown History cloNIDine [Catapres] 0.1 mg PO BID 12/28/17 12/28/17 Unknown History glipiZIDE [Glucotrol] 10 mg PO QDAY 12/28/17 12/28/17 Unknown History glipiZIDE [glipiZIDE ER] 5 mg PO QAM 12/28/17 12/28/17 Unknown History Review of Systems ROS unobtainable: due to mental status Exam - Constitutional Vitals: Temp Pulse Resp BP Pulse Ox 97.8 F 89 17 188/73 99 12/28/17 08:35 12/28/17 09:01 12/28/17 09:01 12/28/17 09:01 12/28/17 09:01 General appearance: Present: mild distress - EENT Eyes: Present: PERRL ENT: hearing intact, clear oral mucosa - Neck Neck: Present: supple, normal ROM - Respiratory Respiratory effort: normal Respiratory: bilateral: CTA - Cardiovascular Heart Sounds: Present: S1 & S2. Absent: rub, click - Extremities Extremities: pulses symmetrical, No edema Peripheral Pulses: abnormal (capillary refill greater than 3.6 seconds.) - Abdominal General gastrointestinal: Present: soft, non-tender, non-distended, normal bowel sounds Female genitourinary: Present: normal - Integumentary Integumentary: Present: clear, dry, clammy, decreased turgor - Musculoskeletal Musculoskeletal: generalized weakness - Psychiatric Psychiatric: no intact judgment & insight, no memory intact - Neurologic Neurologic: CNII-XII intact, no focal deficits, moves all extremities, no gait normal Results - Labs CBC & Chem 7: 12/28/17 09:30 12/28/17 09:30 Labs: Abnormal lab results 12/28/17 12/28/17 12/28/17 Range/Units 08:37 09:30 09:30 WBC 22.2 H (4.5-11.0) K/mm3 Seg Neuts % (Manual) 79.0 H (40.0-70.0) % Lymphocytes % (Manual) 9.0 L (13.4-35.0) % Seg Neutrophils # Man 17.5 H (1.8-7.7) K/mm3 Monocytes # (Manual) 1.6 H (0.0-0.8) K/mm3 Sodium 134 L (137-145) mmol/L Potassium 3.3 L (3.6-5.0) mmol/L Carbon Dioxide 21 L (22-30) mmol/L BUN 24 H (7-17) mg/dL Creatinine 1.5 H (0.7-1.2) mg/dL Glucose 120 H (65-100) mg/dL POC Glucose 42 L (70-105) 12/28/17 12/28/17 Range/Units 10:51 12:20 WBC (4.5-11.0) K/mm3 Seg Neuts % (Manual) (40.0-70.0) % Lymphocytes % (Manual) (13.4-35.0) % Seg Neutrophils # Man (1.8-7.7) K/mm3 Monocytes # (Manual) (0.0-0.8) K/mm3 Sodium (137-145) mmol/L Potassium (3.6-5.0) mmol/L Carbon Dioxide (22-30) mmol/L BUN (7-17) mg/dL Creatinine (0.7-1.2) mg/dL Glucose (65-100) mg/dL POC Glucose 42 L 134 H (70-105) Assessment and Plan - Patient Problems (1) Sepsis Current Visit: Yes Status: Acute Qualifiers: Sepsis type: sepsis due to unspecified organism Qualified Code(s): A41.9 - Sepsis, unspecified organism Plan to address problem: IV antibiotics, blood culture, urinalysis, CBC, Chest x ray, serial lactic acid , monitor uop q shift, (2) ARF (acute renal failure) Current Visit: Yes Status: Acute Qualifiers: Acute renal failure type: with acute tubular necrosis Qualified Code(s): N17.0 - Acute kidney failure with tubular necrosis Plan to address problem: IVF resuscitation, monitor uop q shift, repeat bmp, monitor serum creatnine. (3) Encephalopathy Current Visit: Yes Status: Acute Plan to address problem: CT head, neuro checks, treat sepsis (4) Accelerated hypertension Current Visit: No Status: Acute Plan to address problem: monitor bp q shift, continue prehospital medication (5) Diabetes Current Visit: No Status: Acute Plan to address problem: ADA diet, insulin, accu check (6) DVT prophylaxis Current Visit: No Status: Acute Plan to address problem: scd to BLE while in bed.
[2017-12-28] MEDS ORDERED: TYLENOL PO PRN (14:31)
[2017-12-28] MEDS ORDERED: ZOFRAN IV PRN (14:31)
[2017-12-28] MEDS ORDERED: PROVENTIL IH PRN (14:31)
[2017-12-28] MEDS ORDERED: SODIUM CHLORIDE FLUSH SYRINGE 10 ML IV PRN (14:31)
[2017-12-28] MEDS ORDERED: NACL 0.9% 1000 ML IV ONE (14:33)
[2017-12-28] MEDS: ZOSYN/NS 2.25 GM/50ML 2.25 GM/50 ML BAG IV SCH ×2 (15:51→20:24)
[2017-12-28] MEDS ORDERED: VANCOMYCIN 1,250 MG in NACL 0.9% 500 ML 500 ML IV ONE (16:00)
[2017-12-28] MEDS: CATAPRES PO SCH (21:40)
[2017-12-28] MEDS: SODIUM CHLORIDE FLUSH SYRINGE 10 ML IV SCH (21:40)
[2017-12-28] MEDS: LYRICA PO SCH (21:40)
[2017-12-28] MEDS ORDERED: ZOSYN/NS 4.5GM/100ML 4.5 GM/100 ML VIAL IV SCH (22:00)
[2017-12-29] MEDS: ZOSYN/NS 2.25 GM/50ML 2.25 GM/50 ML BAG IV SCH ×4 (00:44→18:02)
[2017-12-29] MEDS: NACL 0.45% 1000 ML 1,000 ML IV SCH ×2 (00:45→18:02)
[2017-12-29] MEDS: NORVASC PO SCH (09:51)
[2017-12-29] MEDS: LYRICA PO SCH ×2 (09:52→21:50)
[2017-12-29] MEDS: SODIUM CHLORIDE FLUSH SYRINGE 10 ML IV SCH ×2 (09:52→21:52)
[2017-12-29] MEDS: CATAPRES PO SCH ×2 (09:52→21:50)
--- NOTE | 2017-12-29 09:55 | Progress Note ---
Assessment and Plan Assessment and plan: Sepsis. Etiology is unknown but may be secondary ?UTI ?pneumonia. Urinalysis is negative. Check chest x-ray. Continue IV antibiotics and follow-up cultures. Lactic acid slightly elevated. Continue to trend lactic acid levels. Acute renal failure. Continue IV fluid hydration and monitor creatinine. Etiology likely secondary to sepsis/ATN/acute kidney injury and vasomotor nephropathy from dehydration. Follow-up BMP. Hypoglycemia. Resolved. Continue to monitor blood glucose. Toxic metabolic encephalopathy. Etiology secondary to above. Continue to treat underlying causes. Accelerated hypertension. Continue antihypertensive medications. Diabetes mellitus type 2. Continue ADA diet, sliding scale insulin and Accu- Cheks. DVT prophylaxis. Continue SCDs. History Interval history: Patient sitting on the side of the bed eating breakfast with her . I discussed the case with family over the phone who translated. Hospitalist Physical - Constitutional Vitals: Temp Pulse Resp BP Pulse Ox 99.3 F 86 24 161/63 98 12/29/17 07:36 12/29/17 07:36 12/29/17 07:36 12/29/17 07:36 12/29/17 07:36 General appearance: Present: no acute distress - EENT Eyes: Present: PERRL, EOM intact ENT: hearing intact, clear oral mucosa, dentition normal - Neck Neck: Present: supple, normal ROM - Respiratory Respiratory effort: normal Respiratory: bilateral: CTA - Cardiovascular Rhythm: regular Heart Sounds: Present: S1 & S2. Absent: gallop, rub - Extremities Extremities: no ischemia, No edema, Full ROM - Abdominal General gastrointestinal: soft, non-tender, non-distended, normal bowel sounds - Integumentary Integumentary: Present: clear, warm, dry - Neurologic Neurologic: CNII-XII intact, moves all extremities Results - Labs CBC & Chem 7: 12/28/17 09:30 12/28/17 09:30 Labs: Laboratory Last Values WBC 22.2 K/mm3 (4.5-11.0) H 12/28/17 09:30 RBC 4.19 M/mm3 (3.65-5.03) 12/28/17 09:30 Hgb 12.3 gm/dl (10.1-14.3) 12/28/17 09:30 Hct 37.3 % (30.3-42.9) 12/28/17 09:30 MCV 89 fl (79-97) 12/28/17 09:30 MCH 29 pg (28-32) 12/28/17 09:30 MCHC 33 % (30-34) 12/28/17 09:30 RDW 15.0 % (13.2-15.2) 12/28/17 09:30 Plt Count 405 K/mm3 (140-440) 12/28/17 09:30 Add Manual Diff Complete 12/28/17 09:30 Total Counted 100 12/28/17 09:30 Seg Neuts % (Manual) 79.0 % (40.0-70.0) H 12/28/17 09:30 Band Neutrophils % 5.0 % 12/28/17 09:30 Lymphocytes % (Manual) 9.0 % (13.4-35.0) L 12/28/17 09:30 Reactive Lymphs % (Man) 0 % 12/28/17 09:30 Monocytes % (Manual) 7.0 % (0.0-7.3) 12/28/17 09:30 Eosinophils % (Manual) 0 % (0.0-4.3) 12/28/17 09:30 Basophils % (Manual) 0 % (0.0-1.8) 12/28/17 09:30 Metamyelocytes % 0 % 12/28/17 09:30 Myelocytes % 0 % 12/28/17 09:30 Promyelocytes % 0 % 12/28/17 09:30 Blast Cells % 0 % 12/28/17 09:30 Nucleated RBC % Not Reportable 12/28/17 09:30 Seg Neutrophils # Man 17.5 K/mm3 (1.8-7.7) H 12/28/17 09:30 Band Neutrophils # 1.1 K/mm3 12/28/17 09:30 Lymphocytes # (Manual) 2.0 K/mm3 (1.2-5.4) 12/28/17 09:30 Abs React Lymphs (Man) 0.0 K/mm3 12/28/17 09:30 Monocytes # (Manual) 1.6 K/mm3 (0.0-0.8) H 12/28/17 09:30 Eosinophils # (Manual) 0.0 K/mm3 (0.0-0.4) 12/28/17 09:30 Basophils # (Manual) 0.0 K/mm3 (0.0-0.1) 12/28/17 09:30 Metamyelocytes # 0.0 K/mm3 12/28/17 09:30 Myelocytes # 0.0 K/mm3 12/28/17 09:30 Promyelocytes # 0.0 K/mm3 12/28/17 09:30 Blast Cells # 0.0 K/mm3 12/28/17 09:30 WBC Morphology Not Reportable 12/28/17 09:30 Hypersegmented Neuts Not Reportable 12/28/17 09:30 Hyposegmented Neuts Not Reportable 12/28/17 09:30 Hypogranular Neuts Not Reportable 12/28/17 09:30 Smudge Cells Not Reportable 12/28/17 09:30 Toxic Granulation Not Reportable 12/28/17 09:30 Toxic Vacuolation Not Reportable 12/28/17 09:30 Dohle Bodies Not Reportable 12/28/17 09:30 Pelger-Huet Anomaly Not Reportable 12/28/17 09:30 Dhara Rods Not Reportable 12/28/17 09:30 Platelet Estimate Consistent w auto 12/28/17 09:30 Clumped Platelets Not Reportable 12/28/17 09:30 Plt Clumps, EDTA Not Reportable 12/28/17 09:30 Large Platelets Not Reportable 12/28/17 09:30 Giant Platelets Not Reportable 12/28/17 09:30 Platelet Satelliting Not Reportable 12/28/17 09:30 Plt Morphology Comment Not Reportable 12/28/17 09:30 RBC Morphology Normal 12/28/17 09:30 Dimorphic RBCs Not Reportable 12/28/17 09:30 Polychromasia Not Reportable 12/28/17 09:30 Hypochromasia Not Reportable 12/28/17 09:30 Poikilocytosis Not Reportable 12/28/17 09:30 Anisocytosis Not Reportable 12/28/17 09:30 Microcytosis Not Reportable 12/28/17 09:30 Macrocytosis Not Reportable 12/28/17 09:30 Spherocytes Not Reportable 12/28/17 09:30 Pappenheimer Bodies Not Reportable 12/28/17 09:30 Sickle Cells Not Reportable 12/28/17 09:30 Target Cells Not Reportable 12/28/17 09:30 Tear Drop Cells Not Reportable 12/28/17 09:30 Ovalocytes Not Reportable 12/28/17 09:30 Helmet Cells Not Reportable 12/28/17 09:30 [place]va-[place] Bodies Not Reportable 12/28/17 09:30 [place] Rings Not Reportable 12/28/17 09:30 [place] Cells Not Reportable 12/28/17 09:30 Bite Cells Not Reportable 12/28/17 09:30 Crenated Cell Not Reportable 12/28/17 09:30 Elliptocytes Not Reportable 12/28/17 09:30 Acanthocytes (Spur) Not Reportable 12/28/17 09:30 Rouleaux Not Reportable 12/28/17 09:30 Hemoglobin C Crystals Not Reportable 12/28/17 09:30 Schistocytes Not Reportable 12/28/17 09:30 Malaria parasites Not Reportable 12/28/17 09:30 Keshav Bodies Not Reportable 12/28/17 09:30 Hem Pathologist Commnt No 12/28/17 09:30 Sodium 134 mmol/L (137-145) L 12/28/17 09:30 Potassium 3.3 mmol/L (3.6-5.0) L 12/28/17 09:30 Chloride 100.0 mmol/L (98-107) 12/28/17 09:30 Carbon Dioxide 21 mmol/L (22-30) L 12/28/17 09:30 Anion Gap 16 mmol/L 12/28/17 09:30 BUN 24 mg/dL (7-17) H 12/28/17 09:30 Creatinine 1.5 mg/dL (0.7-1.2) H 12/28/17 09:30 Estimated GFR 33 ml/min 12/28/17 09:30 BUN/Creatinine Ratio 16 % 12/28/17 09:30 Glucose 120 mg/dL (65-100) H 12/28/17 09:30 POC Glucose 156 (70-105) H 12/29/17 07:40 Lactic Acid 2.20 mmol/L (0.7-2.0) H* 12/28/17 22:44 Calcium 9.0 mg/dL (8.4-10.2) 12/28/17 09:30 Urine Color Yellow (Yellow) 12/28/17 12:17 Urine Turbidity Clear (Clear) 12/28/17 12:17 Urine pH 5.0 (5.0-7.0) 12/28/17 12:17 Ur Specific [place] 1.013 (1.003-1.030) 12/28/17 12:17 Urine Protein 100 mg/dl mg/dL (Negative) 12/28/17 12:17 Urine Glucose (UA) 150 mg/dL (Negative) 12/28/17 12:17 Urine Ketones Neg mg/dL (Negative) 12/28/17 12:17 Urine Blood Neg (Negative) 12/28/17 12:17 Urine Nitrite Neg (Negative) 12/28/17 12:17 Urine Bilirubin Neg (Negative) 12/28/17 12:17 Urine Urobilinogen 2.0 mg/dL (<2.0) 12/28/17 12:17 Ur Leukocyte Esterase Neg (Negative) 12/28/17 12:17 Urine WBC (Auto) 3.0 /HPF (0.0-6.0) 12/28/17 12:17 Urine RBC (Auto) 2.0 /HPF (0.0-6.0) 12/28/17 12:17 U Epithel Cells (Auto) 7.0 /HPF (0-13.0) 12/28/17 12:17 Urine Bacteria (Auto) 4+ /HPF (Negative) 12/28/17 12:17
--- NOTE | 2017-12-29 10:18 | XRay Report ---
AP CHEST: HISTORY: Sepsis AP view of the chest demonstrates a normal mediastinal and cardiac contour with clear lungs and normal bony and soft tissue structures. IMPRESSION: Unremarkable AP chest.
[2017-12-29] MEDS ORDERED: PNEUMOVAX 23 IM ONE (12:00)
[2017-12-29] MEDS: HumuLIN R SUB-Q SCH (21:51)
[2017-12-30] MEDS: ZOSYN/NS 2.25 GM/50ML 2.25 GM/50 ML BAG IV SCH ×5 (01:03→23:29)
[2017-12-30] MEDS: HumuLIN R SUB-Q SCH ×4 (08:41→22:12)
--- NOTE | 2017-12-30 08:55 | Progress Note ---
Assessment and Plan Assessment and plan: Sepsis. Etiology is unknown but may be secondary ?UTI ?pneumonia. Urinalysis is negative. Check chest x-ray. Continue IV antibiotics and follow-up cultures. Lactic acid slightly elevated. Continue to trend lactic acid levels. Acute renal failure. Continue IV fluid hydration and monitor creatinine. Etiology likely secondary to sepsis/ATN/acute kidney injury and vasomotor nephropathy from dehydration. Follow-up BMP in a.m. Hypoglycemia. Resolved. Continue to monitor blood glucose. Etiology likely secondary to home sulfonylurea (glipizide) with renal insufficiency. We will restart metformin for now in renal insufficiency has improved. Likely discontinue glipizide. Toxic metabolic encephalopathy. Etiology secondary to above. Continue to treat underlying causes. Accelerated hypertension. Continue antihypertensive medications. Diabetes mellitus type 2. Continue ADA diet, sliding scale insulin and Accu- Cheks. DVT prophylaxis. Continue SCDs. History Interval history: No new issues overnight. Patient's blood glucose slightly elevated but controlled with sliding scale. I discussed the case with the niece over the phone who translated to the patient and . Hospitalist Physical - Constitutional Vitals: Temp Pulse Resp BP Pulse Ox 98.7 F 80 20 192/65 97 12/30/17 07:23 12/30/17 07:23 12/30/17 07:23 12/30/17 07:23 12/30/17 07:23 General appearance: Present: no acute distress - EENT Eyes: Present: PERRL, EOM intact ENT: hearing intact, clear oral mucosa, dentition normal - Neck Neck: Present: supple, normal ROM - Respiratory Respiratory effort: normal Respiratory: bilateral: CTA - Cardiovascular Rhythm: regular Heart Sounds: Present: S1 & S2. Absent: gallop, rub - Extremities Extremities: no ischemia, No edema, Full ROM - Abdominal General gastrointestinal: soft, non-tender, non-distended, normal bowel sounds - Integumentary Integumentary: Present: clear, warm, dry - Neurologic Neurologic: CNII-XII intact, moves all extremities Results - Labs CBC & Chem 7: 12/28/17 09:30 12/28/17 09:30 Labs: Laboratory Last Values WBC 22.2 K/mm3 (4.5-11.0) H 12/28/17 09:30 RBC 4.19 M/mm3 (3.65-5.03) 12/28/17 09:30 Hgb 12.3 gm/dl (10.1-14.3) 12/28/17 09:30 Hct 37.3 % (30.3-42.9) 12/28/17 09:30 MCV 89 fl (79-97) 12/28/17 09:30 MCH 29 pg (28-32) 12/28/17 09:30 MCHC 33 % (30-34) 12/28/17 09:30 RDW 15.0 % (13.2-15.2) 12/28/17 09:30 Plt Count 405 K/mm3 (140-440) 12/28/17 09:30 Add Manual Diff Complete 12/28/17 09:30 Total Counted 100 12/28/17 09:30 Seg Neuts % (Manual) 79.0 % (40.0-70.0) H 12/28/17 09:30 Band Neutrophils % 5.0 % 12/28/17 09:30 Lymphocytes % (Manual) 9.0 % (13.4-35.0) L 12/28/17 09:30 Reactive Lymphs % (Man) 0 % 12/28/17 09:30 Monocytes % (Manual) 7.0 % (0.0-7.3) 12/28/17 09:30 Eosinophils % (Manual) 0 % (0.0-4.3) 12/28/17 09:30 Basophils % (Manual) 0 % (0.0-1.8) 12/28/17 09:30 Metamyelocytes % 0 % 12/28/17 09:30 Myelocytes % 0 % 12/28/17 09:30 Promyelocytes % 0 % 12/28/17 09:30 Blast Cells % 0 % 12/28/17 09:30 Nucleated RBC % Not Reportable 12/28/17 09:30 Seg Neutrophils # Man 17.5 K/mm3 (1.8-7.7) H 12/28/17 09:30 Band Neutrophils # 1.1 K/mm3 12/28/17 09:30 Lymphocytes # (Manual) 2.0 K/mm3 (1.2-5.4) 12/28/17 09:30 Abs React Lymphs (Man) 0.0 K/mm3 12/28/17 09:30 Monocytes # (Manual) 1.6 K/mm3 (0.0-0.8) H 12/28/17 09:30 Eosinophils # (Manual) 0.0 K/mm3 (0.0-0.4) 12/28/17 09:30 Basophils # (Manual) 0.0 K/mm3 (0.0-0.1) 12/28/17 09:30 Metamyelocytes # 0.0 K/mm3 12/28/17 09:30 Myelocytes # 0.0 K/mm3 12/28/17 09:30 Promyelocytes # 0.0 K/mm3 12/28/17 09:30 Blast Cells # 0.0 K/mm3 12/28/17 09:30 WBC Morphology Not Reportable 12/28/17 09:30 Hypersegmented Neuts Not Reportable 12/28/17 09:30 Hyposegmented Neuts Not Reportable 12/28/17 09:30 Hypogranular Neuts Not Reportable 12/28/17 09:30 Smudge Cells Not Reportable 12/28/17 09:30 Toxic Granulation Not Reportable 12/28/17 09:30 Toxic Vacuolation Not Reportable 12/28/17 09:30 Dohle Bodies Not Reportable 12/28/17 09:30 Pelger-Huet Anomaly Not Reportable 12/28/17 09:30 Dhara Rods Not Reportable 12/28/17 09:30 Platelet Estimate Consistent w auto 12/28/17 09:30 Clumped Platelets Not Reportable 12/28/17 09:30 Plt Clumps, EDTA Not Reportable 12/28/17 09:30 Large Platelets Not Reportable 12/28/17 09:30 Giant Platelets Not Reportable 12/28/17 09:30 Platelet Satelliting Not Reportable 12/28/17 09:30 Plt Morphology Comment Not Reportable 12/28/17 09:30 RBC Morphology Normal 12/28/17 09:30 Dimorphic RBCs Not Reportable 12/28/17 09:30 Polychromasia Not Reportable 12/28/17 09:30 Hypochromasia Not Reportable 12/28/17 09:30 Poikilocytosis Not Reportable 12/28/17 09:30 Anisocytosis Not Reportable 12/28/17 09:30 Microcytosis Not Reportable 12/28/17 09:30 Macrocytosis Not Reportable 12/28/17 09:30 Spherocytes Not Reportable 12/28/17 09:30 Pappenheimer Bodies Not Reportable 12/28/17 09:30 Sickle Cells Not Reportable 12/28/17 09:30 Target Cells Not Reportable 12/28/17 09:30 Tear Drop Cells Not Reportable 12/28/17 09:30 Ovalocytes Not Reportable 12/28/17 09:30 Helmet Cells Not Reportable 12/28/17 09:30 Leyva-[place] Bodies Not Reportable 12/28/17 09:30 [place] Rings Not Reportable 12/28/17 09:30 [place] Cells Not Reportable 12/28/17 09:30 Bite Cells Not Reportable 12/28/17 09:30 Crenated Cell Not Reportable 12/28/17 09:30 Elliptocytes Not Reportable 12/28/17 09:30 Acanthocytes (Spur) Not Reportable 12/28/17 09:30 Rouleaux Not Reportable 12/28/17 09:30 Hemoglobin C Crystals Not Reportable 12/28/17 09:30 Schistocytes Not Reportable 12/28/17 09:30 Malaria parasites Not Reportable 12/28/17 09:30 Keshav Bodies Not Reportable 12/28/17 09:30 Hem Pathologist Commnt No 12/28/17 09:30 Sodium 134 mmol/L (137-145) L 12/28/17 09:30 Potassium 3.3 mmol/L (3.6-5.0) L 12/28/17 09:30 Chloride 100.0 mmol/L (98-107) 12/28/17 09:30 Carbon Dioxide 21 mmol/L (22-30) L 12/28/17 09:30 Anion Gap 16 mmol/L 12/28/17 09:30 BUN 24 mg/dL (7-17) H 12/28/17 09:30 Creatinine 1.5 mg/dL (0.7-1.2) H 12/28/17 09:30 Estimated GFR 33 ml/min 12/28/17 09:30 BUN/Creatinine Ratio 16 % 12/28/17 09:30 Glucose 120 mg/dL (65-100) H 12/28/17 09:30 POC Glucose 109 (70-105) H 12/30/17 07:25 Lactic Acid 2.20 mmol/L (0.7-2.0) H* 12/28/17 22:44 Calcium 9.0 mg/dL (8.4-10.2) 12/28/17 09:30 Urine Color Yellow (Yellow) 12/28/17 12:17 Urine Turbidity Clear (Clear) 12/28/17 12:17 Urine pH 5.0 (5.0-7.0) 12/28/17 12:17 Ur Specific [place] 1.013 (1.003-1.030) 12/28/17 12:17 Urine Protein 100 mg/dl mg/dL (Negative) 12/28/17 12:17 Urine Glucose (UA) 150 mg/dL (Negative) 12/28/17 12:17 Urine Ketones Neg mg/dL (Negative) 12/28/17 12:17 Urine Blood Neg (Negative) 12/28/17 12:17 Urine Nitrite Neg (Negative) 12/28/17 12:17 Urine Bilirubin Neg (Negative) 12/28/17 12:17 Urine Urobilinogen 2.0 mg/dL (<2.0) 12/28/17 12:17 Ur Leukocyte Esterase Neg (Negative) 12/28/17 12:17 Urine WBC (Auto) 3.0 /HPF (0.0-6.0) 12/28/17 12:17 Urine RBC (Auto) 2.0 /HPF (0.0-6.0) 12/28/17 12:17 U Epithel Cells (Auto) 7.0 /HPF (0-13.0) 12/28/17 12:17 Urine Bacteria (Auto) 4+ /HPF (Negative) 12/28/17 12:17
[2017-12-30] MEDS: CATAPRES PO SCH ×2 (09:35→22:12)
[2017-12-30] MEDS: NACL 0.45% 1000 ML 1,000 ML IV SCH ×2 (09:35→23:29)
[2017-12-30] MEDS: SODIUM CHLORIDE FLUSH SYRINGE 10 ML IV SCH ×2 (09:36→22:13)
[2017-12-30] MEDS: NORVASC PO SCH (09:36)
[2017-12-30] MEDS: LYRICA PO SCH ×2 (09:36→22:11)
[2017-12-31] MEDS: ZOSYN/NS 2.25 GM/50ML 2.25 GM/50 ML BAG IV SCH ×2 (06:09→12:23)
[2017-12-31 08:18] VITALS: BP 153/42
[2017-12-31] MEDS: HumuLIN R SUB-Q SCH ×2 (08:30→12:24)
[2017-12-31] MEDS: NORVASC PO SCH (09:34)
[2017-12-31] MEDS: CATAPRES PO SCH (09:34)
[2017-12-31] MEDS: LYRICA PO SCH (09:34)
[2017-12-31] MEDS: SODIUM CHLORIDE FLUSH SYRINGE 10 ML IV SCH (09:35)
--- NOTE | 2017-12-31 10:15 | Progress Note ---
Assessment and Plan Assessment and plan: Sepsis. Etiology is unknown but may be secondary ?UTI ?pneumonia. Urinalysis is negative. Check chest x-ray. Continue IV antibiotics and follow-up cultures. Lactic acid slightly elevated. Continue to trend lactic acid levels. Acute renal failure. Continue IV fluid hydration and monitor creatinine. Etiology likely secondary to sepsis/ATN/acute kidney injury and vasomotor nephropathy from dehydration. Follow-up BMP in a.m. Hypoglycemia. Resolved. Continue to monitor blood glucose. Etiology likely secondary to home sulfonylurea (glipizide) with renal insufficiency. We will restart metformin for now in renal insufficiency has improved. Likely discontinue glipizide. Toxic metabolic encephalopathy. Etiology secondary to above. Continue to treat underlying causes. Accelerated hypertension. Continue antihypertensive medications. Diabetes mellitus type 2. Continue ADA diet, sliding scale insulin and Accu- Cheks. DVT prophylaxis. Continue SCDs. History Interval history: No new issues overnight. Hospitalist Physical - Constitutional Vitals: Temp Pulse Resp BP Pulse Ox 97.9 F 86 16 153/42 99 12/31/17 07:46 12/31/17 09:34 12/31/17 07:46 12/31/17 09:34 12/31/17 07:46 General appearance: Present: no acute distress - EENT Eyes: Present: PERRL, EOM intact ENT: hearing intact, clear oral mucosa, dentition normal - Neck Neck: Present: supple, normal ROM - Respiratory Respiratory effort: normal Respiratory: bilateral: CTA - Cardiovascular Rhythm: regular Heart Sounds: Present: S1 & S2. Absent: gallop, rub - Extremities Extremities: no ischemia, No edema, Full ROM - Abdominal General gastrointestinal: soft, non-tender, non-distended, normal bowel sounds - Integumentary Integumentary: Present: clear, warm, dry - Neurologic Neurologic: CNII-XII intact, moves all extremities Results - Labs CBC & Chem 7: 12/28/17 09:30 12/28/17 09:30 Labs: Laboratory Last Values WBC 22.2 K/mm3 (4.5-11.0) H 12/28/17 09:30 RBC 4.19 M/mm3 (3.65-5.03) 12/28/17 09:30 Hgb 12.3 gm/dl (10.1-14.3) 12/28/17 09:30 Hct 37.3 % (30.3-42.9) 12/28/17 09:30 MCV 89 fl (79-97) 12/28/17 09:30 MCH 29 pg (28-32) 12/28/17 09:30 MCHC 33 % (30-34) 12/28/17 09:30 RDW 15.0 % (13.2-15.2) 12/28/17 09:30 Plt Count 405 K/mm3 (140-440) 12/28/17 09:30 Add Manual Diff Complete 12/28/17 09:30 Total Counted 100 12/28/17 09:30 Seg Neuts % (Manual) 79.0 % (40.0-70.0) H 12/28/17 09:30 Band Neutrophils % 5.0 % 12/28/17 09:30 Lymphocytes % (Manual) 9.0 % (13.4-35.0) L 12/28/17 09:30 Reactive Lymphs % (Man) 0 % 12/28/17 09:30 Monocytes % (Manual) 7.0 % (0.0-7.3) 12/28/17 09:30 Eosinophils % (Manual) 0 % (0.0-4.3) 12/28/17 09:30 Basophils % (Manual) 0 % (0.0-1.8) 12/28/17 09:30 Metamyelocytes % 0 % 12/28/17 09:30 Myelocytes % 0 % 12/28/17 09:30 Promyelocytes % 0 % 12/28/17 09:30 Blast Cells % 0 % 12/28/17 09:30 Nucleated RBC % Not Reportable 12/28/17 09:30 Seg Neutrophils # Man 17.5 K/mm3 (1.8-7.7) H 12/28/17 09:30 Band Neutrophils # 1.1 K/mm3 12/28/17 09:30 Lymphocytes # (Manual) 2.0 K/mm3 (1.2-5.4) 12/28/17 09:30 Abs React Lymphs (Man) 0.0 K/mm3 12/28/17 09:30 Monocytes # (Manual) 1.6 K/mm3 (0.0-0.8) H 12/28/17 09:30 Eosinophils # (Manual) 0.0 K/mm3 (0.0-0.4) 12/28/17 09:30 Basophils # (Manual) 0.0 K/mm3 (0.0-0.1) 12/28/17 09:30 Metamyelocytes # 0.0 K/mm3 12/28/17 09:30 Myelocytes # 0.0 K/mm3 12/28/17 09:30 Promyelocytes # 0.0 K/mm3 12/28/17 09:30 Blast Cells # 0.0 K/mm3 12/28/17 09:30 WBC Morphology Not Reportable 12/28/17 09:30 Hypersegmented Neuts Not Reportable 12/28/17 09:30 Hyposegmented Neuts Not Reportable 12/28/17 09:30 Hypogranular Neuts Not Reportable 12/28/17 09:30 Smudge Cells Not Reportable 12/28/17 09:30 Toxic Granulation Not Reportable 12/28/17 09:30 Toxic Vacuolation Not Reportable 12/28/17 09:30 Dohle Bodies Not Reportable 12/28/17 09:30 Pelger-Huet Anomaly Not Reportable 12/28/17 09:30 Dhara Rods Not Reportable 12/28/17 09:30 Platelet Estimate Consistent w auto 12/28/17 09:30 Clumped Platelets Not Reportable 12/28/17 09:30 Plt Clumps, EDTA Not Reportable 12/28/17 09:30 Large Platelets Not Reportable 12/28/17 09:30 Giant Platelets Not Reportable 12/28/17 09:30 Platelet Satelliting Not Reportable 12/28/17 09:30 Plt Morphology Comment Not Reportable 12/28/17 09:30 RBC Morphology Normal 12/28/17 09:30 Dimorphic RBCs Not Reportable 12/28/17 09:30 Polychromasia Not Reportable 12/28/17 09:30 Hypochromasia Not Reportable 12/28/17 09:30 Poikilocytosis Not Reportable 12/28/17 09:30 Anisocytosis Not Reportable 12/28/17 09:30 Microcytosis Not Reportable 12/28/17 09:30 Macrocytosis Not Reportable 12/28/17 09:30 Spherocytes Not Reportable 12/28/17 09:30 Pappenheimer Bodies Not Reportable 12/28/17 09:30 Sickle Cells Not Reportable 12/28/17 09:30 Target Cells Not Reportable 12/28/17 09:30 Tear Drop Cells Not Reportable 12/28/17 09:30 Ovalocytes Not Reportable 12/28/17 09:30 Helmet Cells Not Reportable 12/28/17 09:30 Leyva-[place] Bodies Not Reportable 12/28/17 09:30 [place] Rings Not Reportable 12/28/17 09:30 [place] Cells Not Reportable 12/28/17 09:30 Bite Cells Not Reportable 12/28/17 09:30 Crenated Cell Not Reportable 12/28/17 09:30 Elliptocytes Not Reportable 12/28/17 09:30 Acanthocytes (Spur) Not Reportable 12/28/17 09:30 Rouleaux Not Reportable 12/28/17 09:30 Hemoglobin C Crystals Not Reportable 12/28/17 09:30 Schistocytes Not Reportable 12/28/17 09:30 Malaria parasites Not Reportable 12/28/17 09:30 Keshav Bodies Not Reportable 12/28/17 09:30 Hem Pathologist Commnt No 12/28/17 09:30 Sodium 134 mmol/L (137-145) L 12/28/17 09:30 Potassium 3.3 mmol/L (3.6-5.0) L 12/28/17 09:30 Chloride 100.0 mmol/L (98-107) 12/28/17 09:30 Carbon Dioxide 21 mmol/L (22-30) L 12/28/17 09:30 Anion Gap 16 mmol/L 12/28/17 09:30 BUN 24 mg/dL (7-17) H 12/28/17 09:30 Creatinine 1.5 mg/dL (0.7-1.2) H 12/28/17 09:30 Estimated GFR 33 ml/min 12/28/17 09:30 BUN/Creatinine Ratio 16 % 12/28/17 09:30 Glucose 120 mg/dL (65-100) H 12/28/17 09:30 POC Glucose 204 (70-105) H 12/31/17 07:54 Lactic Acid 2.20 mmol/L (0.7-2.0) H* 12/28/17 22:44 Calcium 9.0 mg/dL (8.4-10.2) 12/28/17 09:30 Urine Color Yellow (Yellow) 12/28/17 12:17 Urine Turbidity Clear (Clear) 12/28/17 12:17 Urine pH 5.0 (5.0-7.0) 12/28/17 12:17 Ur Specific [place] 1.013 (1.003-1.030) 12/28/17 12:17 Urine Protein 100 mg/dl mg/dL (Negative) 12/28/17 12:17 Urine Glucose (UA) 150 mg/dL (Negative) 12/28/17 12:17 Urine Ketones Neg mg/dL (Negative) 12/28/17 12:17 Urine Blood Neg (Negative) 12/28/17 12:17 Urine Nitrite Neg (Negative) 12/28/17 12:17 Urine Bilirubin Neg (Negative) 12/28/17 12:17 Urine Urobilinogen 2.0 mg/dL (<2.0) 12/28/17 12:17 Ur Leukocyte Esterase Neg (Negative) 12/28/17 12:17 Urine WBC (Auto) 3.0 /HPF (0.0-6.0) 12/28/17 12:17 Urine RBC (Auto) 2.0 /HPF (0.0-6.0) 12/28/17 12:17 U Epithel Cells (Auto) 7.0 /HPF (0-13.0) 12/28/17 12:17 Urine Bacteria (Auto) 4+ /HPF (Negative) 12/28/17 12:17
--- NOTE | 2017-12-31 11:05 | Progress Note ---
Assessment and Plan Assessment and plan: Sepsis. Etiology is unknown but may be secondary ?UTI ?pneumonia. Urinalysis is negative. Check chest x-ray. Continue IV antibiotics and follow-up cultures. Lactic acid slightly elevated on admission. Acute renal failure. Continue IV fluid hydration and monitor creatinine. Etiology likely secondary to sepsis/ATN/acute kidney injury and vasomotor nephropathy from dehydration. Follow-up BMP in a.m. Hypoglycemia. Resolved. Continue to monitor blood glucose. Etiology likely secondary to home sulfonylurea (glipizide) with renal insufficiency. We will restart metformin for now in renal insufficiency has improved. Likely discontinue glipizide. Toxic metabolic encephalopathy. Etiology secondary to above. Continue to treat underlying causes. Accelerated hypertension. Continue antihypertensive medications. Diabetes mellitus type 2. Continue ADA diet, sliding scale insulin and Accu- Cheks. DVT prophylaxis. Continue SCDs. Disposition. PT was consulted for further evaluation but patient refused. Anticipate discharge in a.m. History Interval history: No new issues overnight. 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 The patient refused PT evaluation. Hospitalist Physical - Constitutional Vitals: Temp Pulse Resp BP Pulse Ox 97.9 F 86 16 153/42 99 12/31/17 07:46 12/31/17 09:34 12/31/17 07:46 12/31/17 09:34 12/31/17 07:46 General appearance: Present: no acute distress - EENT Eyes: Present: PERRL, EOM intact ENT: hearing intact, clear oral mucosa, dentition normal - Neck Neck: Present: supple, normal ROM - Respiratory Respiratory effort: normal Respiratory: bilateral: CTA - Cardiovascular Rhythm: regular Heart Sounds: Present: S1 & S2. Absent: gallop, rub - Extremities Extremities: no ischemia, No edema, Full ROM - Abdominal General gastrointestinal: soft, non-tender, non-distended, normal bowel sounds - Integumentary Integumentary: Present: clear, warm, dry - Neurologic Neurologic: CNII-XII intact, moves all extremities Results - Labs CBC & Chem 7: 12/28/17 09:30 12/28/17 09:30 Labs: Laboratory Last Values WBC 22.2 K/mm3 (4.5-11.0) H 12/28/17 09:30 RBC 4.19 M/mm3 (3.65-5.03) 12/28/17 09:30 Hgb 12.3 gm/dl (10.1-14.3) 12/28/17 09:30 Hct 37.3 % (30.3-42.9) 12/28/17 09:30 MCV 89 fl (79-97) 12/28/17 09:30 MCH 29 pg (28-32) 12/28/17 09:30 MCHC 33 % (30-34) 12/28/17 09:30 RDW 15.0 % (13.2-15.2) 12/28/17 09:30 Plt Count 405 K/mm3 (140-440) 12/28/17 09:30 Add Manual Diff Complete 12/28/17 09:30 Total Counted 100 12/28/17 09:30 Seg Neuts % (Manual) 79.0 % (40.0-70.0) H 12/28/17 09:30 Band Neutrophils % 5.0 % 12/28/17 09:30 Lymphocytes % (Manual) 9.0 % (13.4-35.0) L 12/28/17 09:30 Reactive Lymphs % (Man) 0 % 12/28/17 09:30 Monocytes % (Manual) 7.0 % (0.0-7.3) 12/28/17 09:30 Eosinophils % (Manual) 0 % (0.0-4.3) 12/28/17 09:30 Basophils % (Manual) 0 % (0.0-1.8) 12/28/17 09:30 Metamyelocytes % 0 % 12/28/17 09:30 Myelocytes % 0 % 12/28/17 09:30 Promyelocytes % 0 % 12/28/17 09:30 Blast Cells % 0 % 12/28/17 09:30 Nucleated RBC % Not Reportable 12/28/17 09:30 Seg Neutrophils # Man 17.5 K/mm3 (1.8-7.7) H 12/28/17 09:30 Band Neutrophils # 1.1 K/mm3 12/28/17 09:30 Lymphocytes # (Manual) 2.0 K/mm3 (1.2-5.4) 12/28/17 09:30 Abs React Lymphs (Man) 0.0 K/mm3 12/28/17 09:30 Monocytes # (Manual) 1.6 K/mm3 (0.0-0.8) H 12/28/17 09:30 Eosinophils # (Manual) 0.0 K/mm3 (0.0-0.4) 12/28/17 09:30 Basophils # (Manual) 0.0 K/mm3 (0.0-0.1) 12/28/17 09:30 Metamyelocytes # 0.0 K/mm3 12/28/17 09:30 Myelocytes # 0.0 K/mm3 12/28/17 09:30 Promyelocytes # 0.0 K/mm3 12/28/17 09:30 Blast Cells # 0.0 K/mm3 12/28/17 09:30 WBC Morphology Not Reportable 12/28/17 09:30 Hypersegmented Neuts Not Reportable 12/28/17 09:30 Hyposegmented Neuts Not Reportable 12/28/17 09:30 Hypogranular Neuts Not Reportable 12/28/17 09:30 Smudge Cells Not Reportable 12/28/17 09:30 Toxic Granulation Not Reportable 12/28/17 09:30 Toxic Vacuolation Not Reportable 12/28/17 09:30 Dohle Bodies Not Reportable 12/28/17 09:30 Pelger-Huet Anomaly Not Reportable 12/28/17 09:30 Dhara Rods Not Reportable 12/28/17 09:30 Platelet Estimate Consistent w auto 12/28/17 09:30 Clumped Platelets Not Reportable 12/28/17 09:30 Plt Clumps, EDTA Not Reportable 12/28/17 09:30 Large Platelets Not Reportable 12/28/17 09:30 Giant Platelets Not Reportable 12/28/17 09:30 Platelet Satelliting Not Reportable 12/28/17 09:30 Plt Morphology Comment Not Reportable 12/28/17 09:30 RBC Morphology Normal 12/28/17 09:30 Dimorphic RBCs Not Reportable 12/28/17 09:30 Polychromasia Not Reportable 12/28/17 09:30 Hypochromasia Not Reportable 12/28/17 09:30 Poikilocytosis Not Reportable 12/28/17 09:30 Anisocytosis Not Reportable 12/28/17 09:30 Microcytosis Not Reportable 12/28/17 09:30 Macrocytosis Not Reportable 12/28/17 09:30 Spherocytes Not Reportable 12/28/17 09:30 Pappenheimer Bodies Not Reportable 12/28/17 09:30 Sickle Cells Not Reportable 12/28/17 09:30 Target Cells Not Reportable 12/28/17 09:30 Tear Drop Cells Not Reportable 12/28/17 09:30 Ovalocytes Not Reportable 12/28/17 09:30 Helmet Cells Not Reportable 12/28/17 09:30 Leyva-[place] Bodies Not Reportable 12/28/17 09:30 [place] Rings Not Reportable 12/28/17 09:30 [place] Cells Not Reportable 12/28/17 09:30 Bite Cells Not Reportable 12/28/17 09:30 Crenated Cell Not Reportable 12/28/17 09:30 Elliptocytes Not Reportable 12/28/17 09:30 Acanthocytes (Spur) Not Reportable 12/28/17 09:30 Rouleaux Not Reportable 12/28/17 09:30 Hemoglobin C Crystals Not Reportable 12/28/17 09:30 Schistocytes Not Reportable 12/28/17 09:30 Malaria parasites Not Reportable 12/28/17 09:30 Keshav Bodies Not Reportable 12/28/17 09:30 Hem Pathologist Commnt No 12/28/17 09:30 Sodium 134 mmol/L (137-145) L 12/28/17 09:30 Potassium 3.3 mmol/L (3.6-5.0) L 12/28/17 09:30 Chloride 100.0 mmol/L (98-107) 12/28/17 09:30 Carbon Dioxide 21 mmol/L (22-30) L 12/28/17 09:30 Anion Gap 16 mmol/L 12/28/17 09:30 BUN 24 mg/dL (7-17) H 12/28/17 09:30 Creatinine 1.5 mg/dL (0.7-1.2) H 12/28/17 09:30 Estimated GFR 33 ml/min 12/28/17 09:30 BUN/Creatinine Ratio 16 % 12/28/17 09:30 Glucose 120 mg/dL (65-100) H 12/28/17 09:30 POC Glucose 204 (70-105) H 12/31/17 07:54 Lactic Acid 2.20 mmol/L (0.7-2.0) H* 12/28/17 22:44 Calcium 9.0 mg/dL (8.4-10.2) 12/28/17 09:30 Urine Color Yellow (Yellow) 12/28/17 12:17 Urine Turbidity Clear (Clear) 12/28/17 12:17 Urine pH 5.0 (5.0-7.0) 12/28/17 12:17 Ur Specific [place] 1.013 (1.003-1.030) 12/28/17 12:17 Urine Protein 100 mg/dl mg/dL (Negative) 12/28/17 12:17 Urine Glucose (UA) 150 mg/dL (Negative) 12/28/17 12:17 Urine Ketones Neg mg/dL (Negative) 12/28/17 12:17 Urine Blood Neg (Negative) 12/28/17 12:17 Urine Nitrite Neg (Negative) 12/28/17 12:17 Urine Bilirubin Neg (Negative) 12/28/17 12:17 Urine Urobilinogen 2.0 mg/dL (<2.0) 12/28/17 12:17 Ur Leukocyte Esterase Neg (Negative) 12/28/17 12:17 Urine WBC (Auto) 3.0 /HPF (0.0-6.0) 12/28/17 12:17 Urine RBC (Auto) 2.0 /HPF (0.0-6.0) 12/28/17 12:17 U Epithel Cells (Auto) 7.0 /HPF (0-13.0) 12/28/17 12:17 Urine Bacteria (Auto) 4+ /HPF (Negative) 12/28/17 12:17
--- NOTE | 2018-01-01 12:29 | Discharge Summary ---
Providers - Providers Date of Admission: 12/28/17 14:32 Date of discharge: 12/31/17 Attending physician: CATHRYN SANDERS 12/30/17 08:56 Physical Therapy Evaluation and Treat [CONS] Routine Comment: Reason For Exam: deconditioning Primary care physician: KRISTIE LUQUE MD Hospitalization Reason for admission: sepsis, arf Condition: Fair Hospital course: 82 YO Female with HTN, DM, DVT Not currently on anticoagulation presented to ED with chief complaint of confusion. Patient was admitted with diagnosis of sepsis, hypoglycemia and toxic metabolic encephalopathy. EMS notified and upon arrival the patient was found to be hypoglycemic with a glucose of 27. Patient was administered D10 and the blood sugar reportedly increased to 210 and the patient improved. The patient was treated with IV antibiotics with significant improvement. Patient was also noted to have acute renal failure likely secondary to [place] from sepsis. Patient was receiving IV fluid hydration. The patient became uncooperative and did not allow for lab draws and left AMA. Disposition: DC-07 LEFT AGAINST MED ADVICE Time spent for discharge: 32 Core Measure Documentation - Palliative Care Palliative Care/ Comfort Measures: Not Applicable - Core Measures Any of the following diagnoses?: none Exam - Constitutional Vitals: Temp Pulse Resp BP Pulse Ox 97.9 F 112 H 16 153/42 99 12/31/17 07:46 12/31/17 10:00 12/31/17 10:00 12/31/17 09:34 12/31/17 10:00 Plan Follow up with: KRISTIE LUQUE MD [Primary Care Provider] - 3-5 Days
== END 2017-12-31 12:15 | disposition left against medical advice (07) | DRG 871 ==
LOC: ED 07:52 → 2B-ACE 14:32
PROVIDERS: ADMIT Internal Medicine; ATTEND Hospitalist
PROC: 3E0234Z Introduction of Serum, Toxoid and Vaccine into Muscle, Percutaneous Approach (ICD-10-PCS; principal; 2017-12-29)
DX: A41.9 Sepsis, unspecified organism (principal); G92 Toxic encephalopathy; N17.0 Acute kidney failure with tubular necrosis; N17.9 Acute kidney failure, unspecified; I10 Essential (primary) hypertension; E11.649 Type 2 diabetes mellitus with hypoglycemia without coma; Z23 Encounter for immunization; Z86.718 Personal history of other venous thrombosis and embolism; Z79.84 Long term (current) use of oral hypoglycemic drugs
CPT/HCPCS: 36415; 71045; 80048; 81001; 82140; 82962; 85007; 85025; 87040; 90732; 93970; 96374; 96375; 96376; G8978-GP; G8979-GP; G8980-GP; J1815; J2543; J3370; J7030; J7040

== ENCOUNTER 2018-08-18 07:32 | Inpatient (IN) | payer MEDICARE ==
[2018-08-18] MEDS ORDERED: DUONEB *Not for PRN Use IH ONE ×2 (07:56→08:00)
[2018-08-18 08:18] LABS: Basophils # (Auto) 0.1 K/mm3 (0.0-0.1); Basophils % (Auto) 0.5 % (0.0-1.8); Eosinophils # (Auto) 0.1 K/mm3 (0.0-0.4); Eosinophils % (Auto) 0.6 % (0.0-4.3); Hematocrit 32.2 % (30.3-42.9); Hemoglobin 10.9 gm/dl (10.1-14.3); Lymphocytes # (Auto) 1.7 K/mm3 (1.2-5.4); Lymphocytes % (Auto) 13.4 % (13.4-35.0); Mean Corpuscular HGB Conc 34 % (30-34); Mean Corpuscular Volume 92 fl (79-97); Monocytes # (Auto) 0.9 K/mm3 (0.0-0.8); Platelet Count 380 K/mm3 (140-440); Red Blood Count 3.51 M/mm3 (3.65-5.03); Red Cell Distribution Width 15.3 % (13.2-15.2)
--- NOTE | 2018-08-18 08:19 | Emergency Department Report ---
ED General Adult HPI - General Chief complaint: Dyspnea/Respdistress Stated complaint: GENERAL SICKNESS Time Seen by Provider: 08/18/18 07:55 Source: patient, family, portrait consultant Mode of arrival: Stretcher Limitations: Language Barrier - History of Present Illness Initial comments: This is an 83 year old female who has had chronic frequency and occasional cough, the past 1 month. She has not been to her family physician during this period of time. The nurse gives me a different piece of information that her primary care doctors cannot find anything "wrong with her". Information is obtained from a granddaughter who may not be medically very well informed. The lady herself is not providing a lot of information. She is largely noncommunicative. She is in no respiratory distress. The nurses found her with a pulse oximetry of 92 per room air. Her work of breathing did improve on oxygen and pulse oximetry to 97%. Patient doesn't complain of chest pain or tightness. There is question of a fever but no chills and no measured temperature. Of interest is that the patient had a recent admission and did sign out AMA. She is type II diabetic. Family states that despite her oral medication or sugars have been in the 200s persistently. She has never been on insulin. As per her last admission in 2018: 82 YO Female with HTN, DM, DVT Not currently on anticoagulation presented to ED with chief complaint of confusion. Patient was admitted with diagnosis of sepsis, hypoglycemia and toxic metabolic encephalopathy. EMS notified and upon arrival the patient was found to be hypoglycemic with a glucose of 27. Patient was administered D10 and the blood sugar reportedly increased to 210 and the patient improved. The patient was treated with IV antibiotics with significant improvement. Patient was also noted to have acute renal failure likely secondary to NJ from sepsis. Patient was receiving IV fluid hydration. The patient became uncooperative and did not allow for lab draws and left AMA. Disposition: DC-07 LEFT AGAINST MED ADVICE -: Gradual, hour(s) (weeks for fatigue hours for shortness of breath), week(s) Quality: other (did not complain of pain) Associated Symptoms: denies other symptoms, cough (occasional), fever/chills (subjective fever), shortness of breath Treatments Prior to Arrival: none - Related Data Home Medications Medication Instructions Recorded Confirmed Last Taken Metformin HCl [Glucophage] 1,000 mg PO BID 12/12/14 12/28/17 05/03/16 Pregabalin [Lyrica] 75 mg PO BID 12/28/17 12/28/17 Unknown amLODIPine [Norvasc] 10 mg PO DAILY 12/28/17 12/28/17 Unknown cloNIDine [Catapres] 0.1 mg PO BID 12/28/17 12/28/17 Unknown glipiZIDE [Glucotrol] 10 mg PO QDAY 12/28/17 12/28/17 Unknown glipiZIDE [glipiZIDE ER] 5 mg PO QAM 12/28/17 12/28/17 Unknown Allergies Allergy/AdvReac Type Severity Reaction Status Date / Time No Known Allergies Allergy Unverified 11/09/13 09:52 ED Review of Systems ROS: Stated complaint: GENERAL SICKNESS Other details as noted in HPI Comment: Unobtainable due to pts medical conditions (Limited except as above described) ED Past Medical Hx - Past Medical History Previous Medical History?: Yes Hx Hypertension: Yes Hx Diabetes: Yes (07/04/2014) 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 Not currently on anticoagulation) Hx Arthritis: Yes - Surgical History Past Surgical History?: No - Social History Smoking Status: Never Smoker Substance Use Type: None - Medications Home Medications: Home Medications Medication Instructions Recorded Confirmed Last Taken Type Metformin HCl [Glucophage] 1,000 mg PO BID 12/12/14 12/28/17 05/03/16 History Pregabalin [Lyrica] 75 mg PO BID 12/28/17 12/28/17 Unknown History amLODIPine [Norvasc] 10 mg PO DAILY 12/28/17 12/28/17 Unknown History cloNIDine [Catapres] 0.1 mg PO BID 12/28/17 12/28/17 Unknown History glipiZIDE [Glucotrol] 10 mg PO QDAY 12/28/17 12/28/17 Unknown History glipiZIDE [glipiZIDE ER] 5 mg PO QAM 12/28/17 12/28/17 Unknown History ED Physical Exam - General Limitations: Language Barrier General appearance: alert, in no apparent distress - Head Head exam: Present: atraumatic, normocephalic - Eye Eye exam: Present: normal appearance. Absent: scleral icterus - ENT ENT exam: Present: mucous membranes moist - Neck Neck exam: Present: normal inspection. Absent: tenderness, meningismus - Respiratory Respiratory exam: Present: normal lung sounds bilaterally. Absent: respiratory distress - Cardiovascular Cardiovascular Exam: Present: regular rate, normal rhythm, systolic murmur (3 o ut of 6 left lower sternal border and apex). Absent: diastolic murmur, rubs, gallop - GI/Abdominal GI/Abdominal exam: Present: soft, normal bowel sounds. Absent: distended, tenderness, guarding, rebound, rigid - Extremities Exam Extremities exam: Present: normal inspection - Back Exam Back exam: Present: normal inspection - Neurological Exam Neurological exam: Present: alert, oriented X3, CN II-XII intact. Absent: motor sensory deficit - Psychiatric Psychiatric exam: Present: normal affect, normal mood - Skin Skin exam: Present: warm, dry, intact, normal color. Absent: rash ED Course Vital Signs 08/18/18 08/18/18 07:46 08:00 Temperature 97.9 F Pulse Rate 105 H Pulse Rate [ 100 H Anterior Bilateral Throughout] Respiratory 19 Rate Respiratory 20 Rate [Anterior Bilateral Throughout] Blood Pressure 191/69 O2 Sat by Pulse 97 Oximetry - Reevaluation(s) Reevaluation #1: Discussed with hospitalist Dr. Conklin. Will be admitted by Dr. Granados. Consult to cardiology. VQ scan is pending. Gave initial dose of Lasix. Patient is clinically stable. Elevated d-dimer noted. Full Anticoagulation depending on results. 08/18/18 09:24 ED Medical Decision Making - Lab Data Result diagrams: 08/18/18 08:11 08/18/18 08:11 Laboratory Results - last 24 hr 08/18/18 08/18/18 08/18/18 08:11 08:11 08:11 WBC 12.7 H RBC 3.51 L Hgb 10.9 Hct 32.2 MCV 92 MCH 31 MCHC 34 RDW 15.3 H Plt Count 380 Lymph % (Auto) 13.4 [place] % (Auto) 7.0 Eos % (Auto) 0.6 Baso % (Auto) 0.5 Lymph # 1.7 [place] # 0.9 H Eos # 0.1 Baso # 0.1 Seg Neutrophils % 78.5 H Seg Neutrophils # 10.0 H PT INR APTT D-Dimer VBG pH Sodium 138 Potassium 4.5 Chloride 100.0 Carbon Dioxide 22 Anion Gap 21 BUN 54 H Creatinine 2.3 H Estimated GFR 20 BUN/Creatinine Ratio 23 Glucose 125 H Ketones Quantitative Negative Lactic Acid Calcium 8.7 Magnesium Total Bilirubin Direct Bilirubin Indirect Bilirubin AST ALT Alkaline Phosphatase Total Creatine Kinase CK-MB (CK-2) CK-MB (CK-2) Rel Index Troponin T NT-Pro-B Natriuret Pep 5036 H Total Protein Albumin Albumin/Globulin Ratio 08/18/18 08/18/18 08/18/18 08:11 08:11 08:11 WBC RBC Hgb Hct MCV MCH MCHC RDW Plt Count Lymph % (Auto) [place] % (Auto) Eos % (Auto) Baso % (Auto) Lymph # [place] # Eos # Baso # Seg Neutrophils % Seg Neutrophils # PT 12.2 INR 0.86 L APTT 20.8 L D-Dimer 1261.26 H VBG pH Sodium Potassium Chloride Carbon Dioxide Anion Gap BUN Creatinine Estimated GFR BUN/Creatinine Ratio Glucose Ketones Quantitative Lactic Acid 0.70 Calcium Magnesium 2.60 H Total Bilirubin 0.30 Direct Bilirubin < 0.2 Indirect Bilirubin 0.1 AST 34 ALT 23 Alkaline Phosphatase 131 H Total Creatine Kinase 80 CK-MB (CK-2) 2.1 CK-MB (CK-2) Rel Index 2.6 Troponin T 0.027 NT-Pro-B Natriuret Pep Total Protein 7.5 Albumin 3.7 L Albumin/Globulin Ratio 1.0 08/18/18 08:11 WBC RBC Hgb Hct MCV MCH MCHC RDW Plt Count Lymph % (Auto) [place] % (Auto) Eos % (Auto) Baso % (Auto) Lymph # [place] # Eos # Baso # Seg Neutrophils % Seg Neutrophils # PT INR APTT D-Dimer VBG pH 7.458 H Sodium Potassium Chloride Carbon Dioxide Anion Gap BUN Creatinine Estimated GFR BUN/Creatinine Ratio Glucose Ketones Quantitative Lactic Acid Calcium Magnesium Total Bilirubin Direct Bilirubin Indirect Bilirubin AST ALT Alkaline Phosphatase Total Creatine Kinase CK-MB (CK-2) CK-MB (CK-2) Rel Index Troponin T NT-Pro-B Natriuret Pep Total Protein Albumin Albumin/Globulin Ratio - EKG Data -: EKG Interpreted by Me EKG shows normal: sinus rhythm, axis, intervals, QRS complexes, ST-T waves Rate: normal - EKG Data Interpretation: no acute changes - Radiology Data interpreted by me: Cardiomegaly with early pulmonary edema Critical care attestation.: If time is entered above; I have spent that time in minutes in the direct care of this critically ill patient, excluding procedure time. 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 insulin use: without alf use Diabetes mellitus complication status: with kidney complications Diabetes mellitus complication detail: with chronic kidney disease Chronic kidney disease stage: stage 3 (moderate) Qualified Code(s): E11.22 - Type 2 diabetes mellitus with diabetic chronic kidney disease; N18.3 - Chronic kidney disease, stage 3 (moderate) Disposition: 09 OP ADMIT IP TO THIS HOSP Is pt being admited?: Yes Does the pt Need Aspirin: Yes Condition: Stable Instructions: Pulmonary Edema (ED), Diabetes Mellitus Type 2 in Adults (ED) Referrals: PRIMARY CAREMD [Primary Care Provider] - 3-5 Days Time of Disposition: 09:29
--- NOTE | 2018-08-18 08:22 | XRay Report ---
AP CHEST: HISTORY: Short of breath Mild cardiomegaly and mild pulmonary venous congestion have developed since 12/29/17. The lungs are generally clear. No evidence for pneumonia, pleural effusion or pneumothorax. IMPRESSION: Mild cardiomegaly and pulmonary venous congestion.
[2018-08-18 08:28] LABS: INR 0.86 (0.87-1.13)
[2018-08-18 08:29] LABS: Partial Thromboplastin Time 20.8 Sec. (24.2-36.6)
[2018-08-18 08:31] LABS: Calcium 8.7 mg/dL (8.4-10.2)
[2018-08-18 08:36] LABS: Creatine Kinase MB 2.1 ng/mL (0.0-4.0)
[2018-08-18 08:38] LABS: Alanine Aminotransferase 23 units/L (7-56); Albumin 3.7 g/dL (3.9-5)
[2018-08-18 08:41] LABS: Bilirubin,Direct < 0.2 mg/dL (0-0.2)
[2018-08-18] MEDS ORDERED: LASIX IV ONE (09:02)
[2018-08-18] MEDS ORDERED: NITRO-BID 2% TP ONE ×2 (09:28→10:12)
[2018-08-18] MEDS ORDERED: BABY ASPIRIN PO ONE (09:29)
--- NOTE | 2018-08-18 09:29 | Cat Scan Report ---
CT HEAD WITHOUT CONTRAST: HISTORY: Altered mental status. COMPARISON: 12/12/14. TECHNIQUE: Sequential CT images without contrast. FINDINGS: Images obtained show bilateral prominence of the sulci and ventricles. There are no abnormal intra- or extra-axial blood or fluid collections. There are no focal masses or evidence of mass effect. The mcrae white matter differentiation appears within normal limits. Regions of periventricular decreased attenuation are consistent with microangiopathic ischemic disease. The posterior fossa structures including the fourth ventricle, cerebellum, and brainstem appear normal. IMPRESSION: Evidence of atrophy and microangiopathic ischemic disease. No acute intracranial process noted.
--- NOTE | 2018-08-18 09:52 | Nuclear Medicine Report ---
LUNG SCAN, VENTILATION AND PERFUSION: History: Chest pain, elevated d-dimer. Technique: 5mci of Tc99m MAA was infused for the perfusion images. 15mci XE 133 gas was inhaled for the ventilatory images. Correlation is made with a chest x-ray dated 08/18/18. Findings: Inhalation of Xenon gas demonstrates a normal distribution of the activity throughout both lungs. The wash out phases show no focal retention of activity. After injection of Technetium 99m macroaggregated albumin gamma camera imaging of the lungs in multiple projections demonstrates normal pulmonary contours with a homogeneous distribution of activity. No focal areas of perfusion deficiency are identified. IMPRESSION: Low probability for pulmonary embolus.
[2018-08-18] MEDS ORDERED: LASIX ONE (10:12)
--- NOTE | 2018-08-18 12:20 | Consultation ---
History of Present Illness Consult date: 08/18/18 Requesting physician: SHAREE OROURKE Consult reason: congestive heart failure, other (systolic murmur) History of present illness: The pt is an 83 year old female with a past medical history of HTN, DM, DVT not currently on anticoagulation. She is previously unknown to our practice. She does not speak Italian. She presented with c/o SOB and cough for the past 1 month. She has not been to her family physician during this period of time. Information is obtained in ED from a granddaughter. She is in no respiratory dis tress. The nurses found her with a pulse oximetry of 92 per room air. Her work of breathing did improve on oxygen and pulse oximetry to 97%. CXR c/w mild cardiomegaly and HF. She is noted to have a loud systolic murmur. As per her last admission in 2018: 82 YO Female with HTN, DM, DVT Not currently on anticoagulation presented to ED with chief complaint of confusion. Patient was admitted with diagnosis of sepsis, hypoglycemia and toxic metabolic encephalopathy. EMS notified and upon arrival the patient was found to be hypoglycemic with a glucose of 27. Patient was administered D10 and the blood sugar reportedly increased to 210 and the patient improved. The patient was treated with IV antibiotics with significant improvement. Patient was also noted to have acute renal failure likely secondary to [place] from sepsis. Patient was receiving IV fluid hydration. The patient became uncooperative and did not allow for lab draws and left AMA. Disposition: DC-07 LEFT AGAINST MED ADVICE Past History Past Medical History: diabetes, hypertension Medications and Allergies Allergies Allergy/AdvReac Type Severity Reaction Status Date / Time No Known Allergies Allergy Unverified 11/09/13 09:52 Home Medications Medication Instructions Recorded Confirmed Last Taken Type amLODIPine [Norvasc] 10 mg PO DAILY 12/28/17 08/18/18 Unknown History cloNIDine [Catapres] 0.1 mg PO BID 12/28/17 08/18/18 Unknown History glipiZIDE [Glucotrol] 10 mg PO BID 12/28/17 08/18/18 Unknown History Furosemide [Lasix] 20 mg PO BID 08/18/18 08/18/18 Unknown History Review of Systems Cardiovascular: shortness of breath, no chest pain Respiratory: cough Physical Examination Vital Signs Pulse Ox 93 08/18/18 07:40 General appearance: no acute distress HEENT: Positive: PERRL, Normocephaly, Mucus Membranes Moist Neck: Positive: neck supple, trachea midline Cardiac: Positive: Reg Rate and Rhythm, S1/S2, Systolic Murmur Lungs: Positive: Decreased Breath Sounds Neuro: Positive: Grossly Intact Abdomen: Positive: Soft. Negative: Tender Skin: Negative: Rash, Wound Musculoskeletal: No Pain Extremities: Absent: edema Results 08/18/18 08:11 08/18/18 08:11 Cardiac Enzymes 08/18/18 Range/Units 08:11 AST 34 (5-40) units/L CK-MB (CK-2) 2.1 (0.0-4.0) ng/mL Coagulation 08/18/18 Range/Units 08:11 PT 12.2 (12.2-14.9) Sec. INR 0.86 L (0.87-1.13) APTT 20.8 L (24.2-36.6) Sec. CBC 08/18/18 Range/Units 08:11 WBC 12.7 H (4.5-11.0) K/mm3 RBC 3.51 L (3.65-5.03) M/mm3 Hgb 10.9 (10.1-14.3) gm/dl Hct 32.2 (30.3-42.9) % Plt Count 380 (140-440) K/mm3 Lymph # 1.7 (1.2-5.4) K/mm3 [place] # 0.9 H (0.0-0.8) K/mm3 Eos # 0.1 (0.0-0.4) K/mm3 Baso # 0.1 (0.0-0.1) K/mm3 Comprehensive Metabolic Panel 08/18/18 08/18/18 Range/Units 08:11 08:11 Sodium 138 (137-145) mmol/L Potassium 4.5 (3.6-5.0) mmol/L Chloride 100.0 (98-107) mmol/L Carbon Dioxide 22 (22-30) mmol/L BUN 54 H (7-17) mg/dL Creatinine 2.3 H (0.7-1.2) mg/dL Glucose 125 H (65-100) mg/dL Calcium 8.7 (8.4-10.2) mg/dL Direct Bilirubin < 0.2 (0-0.2) mg/dL Indirect Bilirubin 0.1 mg/dL AST 34 (5-40) units/L ALT 23 (7-56) units/L Alkaline Phosphatase 131 H (35-129) units/L Total Protein 7.5 (6.3-8.2) g/dL Albumin 3.7 L (3.9-5) g/dL - Imaging and Cardiology Echo: pending EKG: report reviewed, image reviewed EKG interpretations - Telemetry EKG Rhythm: Sinus Rhythm - EKG Sinus rhythms and dysrhythmias: sinus rhythm Assessment and Plan DDimer elevated - V/Q low prob for PE. Obtain echo. Await nephrology consultation - pt would benefit from IV diuresis but will defer to nephrology in setting of ARF. Optimize anti-hypertensive regimen. The patient has been seen in conjunction with Dr. Mari Meyers who agrees with the assessment and plan of care. - Patient Problems (1) Acute heart failure Current Visit: Yes Status: Acute (2) Systolic murmur Current Visit: Yes Status: Acute (3) ARF (acute renal failure) Current Visit: Yes Status: Acute Qualifiers: Acute renal failure type: with acute tubular necrosis Qualified Code(s): N17.0 - Acute kidney failure with tubular necrosis (4) Uncontrolled hypertension Current Visit: Yes Status: Acute (5) Leukocytosis Current Visit: Yes Status: Acute (6) Diabetes Current Visit: Yes Status: Chronic
[2018-08-18] MEDS ORDERED: ZOFRAN IV PRN (13:10)
[2018-08-18] MEDS ORDERED: MORPHINE IV PRN (13:10)
[2018-08-18] MEDS ORDERED: SODIUM CHLORIDE FLUSH SYRINGE 10 ML IV PRN (13:10)
[2018-08-18] MEDS ORDERED: TYLENOL PO PRN (13:10)
--- NOTE | 2018-08-18 13:10 | History and Physical Report ---
History of Present Illness Date of examination: 08/18/18 Date of admission: 08/18/18 09:29 Chief complaint: Cough, shortness of breath History of present illness: Patient is 83 yo with diabetes, hypertension, presents with xshortness of breath, cough. patient is poor historian. history obtained from family at bedside and ED Physician. Patient was evaluated in ED. She was found to have pulmonary edema on chest X ray, diagnosed with CHF exacerbation. Also her Crea tinine was elevated at 2.3 therefore Nephrology consulted for acute kidney injury. Will admit for further management. Past History Past Medical History: diabetes, DVT, hypertension, other (osteomyelitis of jaw) Past Surgical History: No surgical history Social history: lives with family, full code. denies: smoking, alcohol abuse, IV drug use Family history: no significant family history Medications and Allergies Allergies Allergy/AdvReac Type Severity Reaction Status Date / Time No Known Allergies Allergy Unverified 11/09/13 09:52 Home Medications Medication Instructions Recorded Confirmed Last Taken Type amLODIPine [Norvasc] 10 mg PO DAILY 12/28/17 08/18/18 Unknown History cloNIDine [Catapres] 0.1 mg PO BID 12/28/17 08/18/18 Unknown History glipiZIDE [Glucotrol] 10 mg PO BID 12/28/17 08/18/18 Unknown History Furosemide [Lasix] 20 mg PO BID 08/18/18 08/18/18 Unknown History Review of Systems All systems: negative (No fever, no headache, no abdominal pain. All other systems reviewed and are negative) Exam - Physical Exam Narrative exam: GEN: Not in acute distress, lying in bed HEENT: Normocephalic, atraumatic, Neck: supple, No JVD Lungs: Bilateral crackles, no wheeze Heart:S1 and S2 regular, no murmurs, rubs or gallop, Abd:soft, non tender, non distended, normal bowel sounds Ext: No edema, no clubbing or cyanosis Neuro: AAO x 3, No focal neurological signs, - Constitutional Vitals: Temp Pulse Resp BP Pulse Ox 97.9 F 99 H 19 173/67 96 08/18/18 07:46 08/18/18 12:00 08/18/18 12:00 08/18/18 12:00 08/18/18 12:00 Results - Labs CBC & Chem 7: 08/19/18 04:55 08/19/18 04:55 Labs: Abnormal lab results 08/18/18 08/18/18 08/18/18 Range/Units 08:11 08:11 08:11 WBC 12.7 H (4.5-11.0) K/mm3 RBC 3.51 L (3.65-5.03) M/mm3 RDW 15.3 H (13.2-15.2) % [place] # 0.9 H (0.0-0.8) K/mm3 Seg Neutrophils % 78.5 H (40.0-70.0) % Seg Neutrophils # 10.0 H (1.8-7.7) K/mm3 INR (0.87-1.13) APTT (24.2-36.6) Sec. D-Dimer (0-234) ng/mlDDU VBG pH (7.320-7.420) BUN 54 H (7-17) mg/dL Creatinine 2.3 H (0.7-1.2) mg/dL Glucose 125 H (65-100) mg/dL Magnesium (1.7-2.3) mg/dL Alkaline Phosphatase (35-129) units/L NT-Pro-B Natriuret Pep 5036 H (0-900) pg/mL Albumin (3.9-5) g/dL 08/18/18 08/18/18 08/18/18 Range/Units 08:11 08:11 08:11 WBC (4.5-11.0) K/mm3 RBC (3.65-5.03) M/mm3 RDW (13.2-15.2) % [place] # (0.0-0.8) K/mm3 Seg Neutrophils % (40.0-70.0) % Seg Neutrophils # (1.8-7.7) K/mm3 INR 0.86 L (0.87-1.13) APTT 20.8 L (24.2-36.6) Sec. D-Dimer 1261.26 H (0-234) ng/mlDDU VBG pH 7.458 H (7.320-7.420) BUN (7-17) mg/dL Creatinine (0.7-1.2) mg/dL Glucose (65-100) mg/dL Magnesium 2.60 H (1.7-2.3) mg/dL Alkaline Phosphatase 131 H (35-129) units/L NT-Pro-B Natriuret Pep (0-900) pg/mL Albumin 3.7 L (3.9-5) g/dL Assessment and Plan Acute resp failure due to CHF. Admit to Tele Supplemental Oxygen Acute CHF Echo to determine EF Acute kidney injury with Cr 2.3 on admission. Monitor Creatinine Systolic heart murmur Hypertensive urgency. Monitor BP Hydralazine iv prn Full code status
[2018-08-18] MEDS ORDERED: BABY ASPIRIN ONE (14:35)
[2018-08-18] MEDS ORDERED: CATAPRES ONE ×2 (15:44→23:37)
[2018-08-18] MEDS ORDERED: NORVASC ONE (15:44)
[2018-08-18] MEDS: CATAPRES PO SCH (15:56)
[2018-08-18] MEDS: NORVASC PO SCH (15:56)
--- NOTE | 2018-08-18 16:09 | Consultation ---
History of Present Illness - Reason for Consult Consult date: 08/18/18 acute renal failure - History of Present Illness The patient is an 83 YO female with medical history significant for Obesity, HTN, DM type 2 and h/o DVT not on anticoagulation who presented with c/o SOB and dry cough for the past several days, worse for the past one day. History was obtained through the mask designer over the phone. Associated symptom include orthopnea. No h/o N, V, abd pain, cp, fever or abd pain. Her symptoms did improve on oxygen. CXR c/w cardiomegaly and HF. Labs are significant for creatinine 2.3, leukocytosis and elevated BNP. Nephrology was consulted for further evaluation. Unable to obtain complete ROS. Past History Past Medical History: diabetes, hypertension Medications and Allergies Allergies Allergy/AdvReac Type Severity Reaction Status Date / Time No Known Allergies Allergy Unverified 11/09/13 09:52 Home Medications Medication Instructions Recorded Confirmed Last Taken Type amLODIPine [Norvasc] 10 mg PO DAILY 12/28/17 08/18/18 Unknown History cloNIDine [Catapres] 0.1 mg PO BID 12/28/17 08/18/18 Unknown History glipiZIDE [Glucotrol] 10 mg PO BID 12/28/17 08/18/18 Unknown History Furosemide [Lasix] 20 mg PO BID 08/18/18 08/18/18 Unknown History Active Meds: Active Medications Acetaminophen (Tylenol) 650 mg PO Q4H PRN PRN Reason: Pain MILD(1-3)/Fever >100.5/MEHTA Amlodipine Besylate (Norvasc) 10 mg PO DAILY [facility] Last Admin: 08/18/18 15:56 Dose: 10 mg Documented by: Clonidine HCl (Catapres) 0.1 mg PO BID [facility] Last Admin: 08/18/18 15:56 Dose: 0.1 mg Documented by: Enoxaparin Sodium (Lovenox) 30 mg SUB-Q QDAY [facility] Morphine Sulfate (Morphine) 2 mg IV Q4H PRN PRN Reason: Pain, Moderate (4-6) Ondansetron HCl (Zofran) 4 mg IV Q8H PRN PRN Reason: Nausea And Vomiting Sodium Chloride (Sodium Chloride Flush Syringe 10 Ml) 10 ml IV BID [facility] Sodium Chloride (Sodium Chloride Flush Syringe 10 Ml) 10 ml IV PRN PRN PRN Reason: LINE FLUSH Exam - Vital Signs Vital signs: Vital Signs Pulse Ox 93 08/18/18 07:40 - General Appearance General appearance: well-developed, well-nourished, appears stated age, other (not in distress) EENT: ATNC, PERRL Neck: Present: neck supple, trachea midline Respiratory: Clear to Ascultation Heart: regular, S1S2, systolic murmur Gastrointestinal: Present: normoactive bowel sounds, obese. Absent: tenderness, distended Integumentary: no rash, warm and dry Neurologic: other (able to move all 4 extremities) Musculoskeletal: Present: other (trace LE edema noted) Results - Lab Results 08/18/18 08:11 08/18/18 08:11 Most recent lab results Calcium 8.7 mg/dL (8.4-10.2) 08/18/18 08:11 Magnesium 2.60 mg/dL (1.7-2.3) H 08/18/18 08:11 - Image Kidney/bladder ultrasound: pending Assessment and Plan 1. Acute kidney injury: NJ in the setting of CHF exacerbation. Suspect Cardio-renal syndrome. Urine studies and Renal US ordered. Monitor renal function. 2. FEN: Volume overlaod, diuretics. 3. Uncontrolled HTN: Resume home meds. Monitor. 4. Acute CHF: Followed by Cards. 5. DM-2.
[2018-08-18 16:58] LABS: Bilirubin,Urine NEG (Negative); Blood,Urine NEG (Negative); Color,Urine Yellow (Yellow); Urobilinogen,Urine < 2.0 mg/dL (<2.0)
[2018-08-18 17:04] LABS: Protein,Urine >500 mg/dL (Negative)
[2018-08-19] MEDS: CATAPRES PO SCH ×3 (00:05→21:26)
[2018-08-19] MEDS: SODIUM CHLORIDE FLUSH SYRINGE 10 ML IV SCH ×3 (01:58→21:26)
[2018-08-19 06:43] LABS: Basophils % (Auto) 0.4 % (0.0-1.8); Eosinophils # (Auto) 0.1 K/mm3 (0.0-0.4); Eosinophils % (Auto) 1.3 % (0.0-4.3); Hematocrit 29.2 % (30.3-42.9); Lymphocytes # (Auto) 1.8 K/mm3 (1.2-5.4); Lymphocytes % (Auto) 18.3 % (13.4-35.0); Mean Corpuscular HGB Conc 34 % (30-34); Mean Corpuscular Volume 92 fl (79-97); Monocytes # (Auto) 0.6 K/mm3 (0.0-0.8); Monocytes % (Auto) 6.1 % (0.0-7.3); Platelet Count 362 K/mm3 (140-440); Red Blood Count 3.17 M/mm3 (3.65-5.03); Red Cell Distribution Width 15.3 % (13.2-15.2)
[2018-08-19 06:59] LABS: Calcium 8.3 mg/dL (8.4-10.2)
--- NOTE | 2018-08-19 09:35 | Progress Note ---
Assessment and Plan 1. Acute kidney injury: [place] in the setting of CHF exacerbation. Suspect Cardio-renal syndrome. Urine studies and Renal US ordered. Monitor renal function. 2. FEN: Volume overlaod, improving. 3. Uncontrolled HTN: Add Metoprolol. Monitor. 4. Acute CHF: Followed by Cards. 5. DM-2. Subjective Date of service: 08/19/18 Interval history: Patient was seen and examined at the bedside. history through her niece over the phone. Feeling better today. Objective - Vital Signs Vital signs: Vital Signs - 12hr 08/18/18 08/18/18 08/18/18 22:00 22:49 23:00 Temperature Pulse Rate 104 H 99 H 100 H Respiratory 22 19 14 Rate Blood Pressure 153/70 157/63 157/63 Blood Pressure [Right] O2 Sat by Pulse 98 97 98 Oximetry 08/18/18 08/18/18 08/18/18 23:06 23:09 23:10 Temperature Pulse Rate 100 H 101 H Respiratory 18 14 Rate Blood Pressure 159/67 159/67 Blood Pressure [Right] O2 Sat by Pulse 97 98 97 Oximetry 08/18/18 08/18/18 08/18/18 23:20 23:30 23:40 Temperature Pulse Rate 102 H 102 H 102 H Respiratory 17 20 19 Rate Blood Pressure 157/63 157/63 174/72 Blood Pressure [Right] O2 Sat by Pulse 98 95 96 Oximetry 08/18/18 08/19/18 08/19/18 23:50 00:00 00:05 Temperature Pulse Rate 100 H 103 H 105 H Respiratory 21 19 Rate Blood Pressure 159/67 159/67 170/70 Blood Pressure [Right] O2 Sat by Pulse 96 96 Oximetry 08/19/18 08/19/18 08/19/18 00:10 00:37 00:45 Temperature 98.6 F Pulse Rate 102 H 105 H Respiratory 21 18 18 Rate Blood Pressure 170/76 Blood Pressure 170/70 [Right] O2 Sat by Pulse 96 96 Oximetry 08/19/18 08/19/18 08/19/18 01:00 01:18 01:51 Temperature 98.8 F 98.8 F Pulse Rate 100 H 104 H 99 H Respiratory 16 16 Rate Blood Pressure 169/71 Blood Pressure 169/71 [Right] O2 Sat by Pulse 97 97 Oximetry 08/19/18 08/19/18 03:58 09:24 Temperature 98.6 F 98.6 F Pulse Rate 103 H 97 H Respiratory 18 14 Rate Blood Pressure 175/74 160/71 Blood Pressure [Right] O2 Sat by Pulse 98 99 Oximetry - General Appearance General appearance: well-developed, well-nourished, appears stated age, other (not in distress) EENT: ATNC, PERRL, mucous membranes moist Neck: supple Respiratory: Present: Clear to Ascultation Cardiology: regular, S1S2, no murmurs Gastrointestinal: normoactive bowel sounds, no tenderness, no distended Integumentary: no rash, warm and dry Neurologic: no focal deficit Musculoskeletal: other (no edema) - Lab 08/19/18 04:55 08/19/18 04:55 Most recent lab results Calcium 8.3 mg/dL (8.4-10.2) L 08/19/18 04:55 Magnesium 2.60 mg/dL (1.7-2.3) H 08/18/18 08:11 Medications & Allergies - Medications Allergies/Adverse Reactions: Allergies No Known Allergies Allergy (Unverified 11/09/13 09:52) Home Medications: Home Medications Medication Instructions Recorded Confirmed Last Taken Type amLODIPine [Norvasc] 10 mg PO DAILY 12/28/17 08/18/18 Unknown History cloNIDine [Catapres] 0.1 mg PO BID 12/28/17 08/18/18 Unknown History glipiZIDE [Glucotrol] 10 mg PO BID 12/28/17 08/18/18 Unknown History Furosemide [Lasix] 20 mg PO BID 08/18/18 08/18/18 Unknown History Active Medications: Generic Name Dose Route Start Last Admin Trade Name Freq PRN Reason Stop Dose Admin Acetaminophen 650 mg 08/18/18 13:10 Tylenol PO Q4H PRN Pain MILD(1-3)/Fever >100.5/MEHTA Amlodipine Besylate 10 mg 08/18/18 14:00 08/18/18 15:56 Norvasc PO 10 mg DAILY ANAHY Administration Clonidine HCl 0.1 mg 08/18/18 14:00 08/19/18 00:05 Catapres PO 0.1 mg BID ANAHY Administration Enoxaparin Sodium 30 mg 08/19/18 10:00 Lovenox SUB-Q QDAY ANAHY Morphine Sulfate 2 mg 08/18/18 13:10 Morphine IV Q4H PRN Pain, Moderate (4-6) Ondansetron HCl 4 mg 08/18/18 13:10 Zofran IV Q8H PRN Nausea And Vomiting Sodium Chloride 10 ml 08/18/18 22:00 08/19/18 01:58 Sodium Chloride Flush Syringe 10 Ml IV Not Given BID ANAHY Sodium Chloride 10 ml 08/18/18 13:10 Sodium Chloride Flush Syringe 10 Ml IV PRN PRN LINE FLUSH
--- NOTE | 2018-08-19 09:53 | Progress Note ---
Assessment and Plan Assessment and plan: Acute resp failure due to CHF. Admitted to Tele Supplemental Oxygen Acute CHF Echo to determine EF Acute kidney injury with Cr 2.3 on admission Slight worse 2.5 today. Monitor Creatinine Systolic heart murmur Hypertensive urgency. Monitor BP Hydralazine iv prn Full code status History Interval history: Shortness of breath Gen weakness Hospitalist Physical - Physical exam Narrative exam: GEN: Not in acute distress, lying in bed,obese HEENT: Normocephalic, atraumatic, Neck: supple, No JVD Lungs: Bilateral crackles, no wheeze Heart:S1 and S2 regular, no murmurs, rubs or gallop, Abd:soft, non tender, non distended, normal bowel sounds Ext: No edema, no clubbing or cyanosis Neuro: Awake,alert, No focal neurological signs, - Constitutional Vitals: Temp Pulse Resp BP Pulse Ox 98.6 F 97 H 14 160/71 99 08/19/18 09:24 08/19/18 09:24 08/19/18 09:24 08/19/18 09:24 08/19/18 09:24 General appearance: Present: no acute distress Results - Labs CBC & Chem 7: 08/19/18 04:55 08/19/18 04:55 Labs: Laboratory Last Values WBC 10.1 K/mm3 (4.5-11.0) 08/19/18 04:55 RBC 3.17 M/mm3 (3.65-5.03) L 08/19/18 04:55 Hgb 10.0 gm/dl (10.1-14.3) L 08/19/18 04:55 Hct 29.2 % (30.3-42.9) L 08/19/18 04:55 MCV 92 fl (79-97) 08/19/18 04:55 MCH 32 pg (28-32) 08/19/18 04:55 MCHC 34 % (30-34) 08/19/18 04:55 RDW 15.3 % (13.2-15.2) H 08/19/18 04:55 Plt Count 362 K/mm3 (140-440) 08/19/18 04:55 Lymph % (Auto) 18.3 % (13.4-35.0) 08/19/18 04:55 [place] % (Auto) 6.1 % (0.0-7.3) 08/19/18 04:55 Eos % (Auto) 1.3 % (0.0-4.3) 08/19/18 04:55 Baso % (Auto) 0.4 % (0.0-1.8) 08/19/18 04:55 Lymph # 1.8 K/mm3 (1.2-5.4) 08/19/18 04:55 [place] # 0.6 K/mm3 (0.0-0.8) 08/19/18 04:55 Eos # 0.1 K/mm3 (0.0-0.4) 08/19/18 04:55 Baso # 0.0 K/mm3 (0.0-0.1) 08/19/18 04:55 Seg Neutrophils % 73.9 % (40.0-70.0) H 08/19/18 04:55 Seg Neutrophils # 7.5 K/mm3 (1.8-7.7) 08/19/18 04:55 PT 12.2 Sec. (12.2-14.9) 08/18/18 08:11 INR 0.86 (0.87-1.13) L 08/18/18 08:11 APTT 20.8 Sec. (24.2-36.6) L 08/18/18 08:11 D-Dimer 1261.26 ng/mlDDU (0-234) H 08/18/18 08:11 VBG pH 7.458 (7.320-7.420) H 08/18/18 08:11 Sodium 141 mmol/L (137-145) 08/19/18 04:55 Potassium 4.2 mmol/L (3.6-5.0) 08/19/18 04:55 Chloride 105.5 mmol/L (98-107) 08/19/18 04:55 Carbon Dioxide 22 mmol/L (22-30) 08/19/18 04:55 Anion Gap 18 mmol/L 08/19/18 04:55 BUN 47 mg/dL (7-17) H 08/19/18 04:55 Creatinine 2.5 mg/dL (0.7-1.2) H 08/19/18 04:55 Estimated GFR 18 ml/min 08/19/18 04:55 BUN/Creatinine Ratio 19 % 08/19/18 04:55 Glucose 126 mg/dL (65-100) H 08/19/18 04:55 POC Glucose 119 (70-105) H 08/19/18 00:13 Ketones Quantitative Negative (Negative) 08/18/18 08:11 Lactic Acid 0.70 mmol/L (0.7-2.0) 08/18/18 08:11 Calcium 8.3 mg/dL (8.4-10.2) L 08/19/18 04:55 Magnesium 2.60 mg/dL (1.7-2.3) H 08/18/18 08:11 Total Bilirubin 0.30 mg/dL (0.1-1.2) 08/18/18 08:11 Direct Bilirubin < 0.2 mg/dL (0-0.2) 08/18/18 08:11 Indirect Bilirubin 0.1 mg/dL 08/18/18 08:11 AST 34 units/L (5-40) 08/18/18 08:11 ALT 23 units/L (7-56) 08/18/18 08:11 Alkaline Phosphatase 131 units/L (35-129) H 08/18/18 08:11 Total Creatine Kinase 80 units/L (30-135) 08/18/18 08:11 CK-MB (CK-2) 2.1 ng/mL (0.0-4.0) 08/18/18 08:11 CK-MB (CK-2) Rel Index 2.6 (0-4) 08/18/18 08:11 Troponin T 0.027 ng/mL (0.00-0.029) 08/18/18 08:11 NT-Pro-B Natriuret Pep 5036 pg/mL (0-900) H 08/18/18 08:11 Total Protein 7.5 g/dL (6.3-8.2) 08/18/18 08:11 Albumin 3.7 g/dL (3.9-5) L 08/18/18 08:11 Albumin/Globulin Ratio 1.0 % 08/18/18 08:11 Urine Color Yellow (Yellow) 08/18/18 15:58 Urine Turbidity Clear (Clear) 08/18/18 15:58 Urine pH 8.0 (5.0-7.0) H 08/18/18 15:58 Ur Specific [place] 1.010 (1.003-1.030) 08/18/18 15:58 Urine Protein >500 mg/dL (Negative) 08/18/18 15:58 Urine Glucose (UA) 50 mg/dL (Negative) 08/18/18 15:58 Urine Ketones Neg mg/dL (Negative) 08/18/18 15:58 Urine Blood Neg (Negative) 08/18/18 15:58 Urine Nitrite Neg (Negative) 08/18/18 15:58 Urine Bilirubin Neg (Negative) 08/18/18 15:58 Urine Urobilinogen < 2.0 mg/dL (<2.0) 08/18/18 15:58 Ur Leukocyte Esterase Neg (Negative) 08/18/18 15:58 Urine WBC (Auto) 1.0 /HPF (0.0-6.0) 08/18/18 15:58 Urine RBC (Auto) 11.0 /HPF (0.0-6.0) 08/18/18 15:58 U Epithel Cells (Auto) 1.0 /HPF (0-13.0) 08/18/18 15:58
[2018-08-19] MEDS: LOVENOX SUB-Q SCH (10:56)
[2018-08-19] MEDS: NORVASC PO SCH (10:56)
[2018-08-19] MEDS: LOPRESSOR PO SCH ×2 (14:00→21:26)
--- NOTE | 2018-08-19 14:24 | Ultrasound Report ---
FINAL REPORT EXAM: US RENAL BILAT HISTORY: Acute renal failure. COMPARISON: None. TECHNIQUE: Grayscale and Doppler imaging of the kidneys and bladder was performed. FINDINGS: The right kidney measures 10 centimeters in length. There is normal cortical thickness. There is no h ydronephrosis. 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 There is a simple appearing cyst i n the inferior pole of the right kidney measuring approximately 1.9 x 1.6 x 1.5 centimeters. The left kidney measures 10 centimeters in length. There is normal cortical thickness. There is no hy dronephrosis. There is no echogenic focus or mass. The bladder is normal in appearance without focal wall thickening or intraluminal mass. IMPRESSION: 1. Simple appearing cyst in the inferior pole of the right kidney measuring approximately 1.9 x 1.6 x 1.5 centimeters. 2. 6 millimeter nonobstructive calcification in the interpolar region of the right kidney. 3. Normal appearance of the left kidney.
--- NOTE | 2018-08-19 15:23 | Progress Note ---
Assessment and Plan (1) Acute heart failure Current Visit: Yes Status: Acute improving. Diastolic heart failure. (2) Systolic murmur Current Visit: Yes Status: Acute Moderate and moderate MR (3) ARF (acute renal failure) Current Visit: Yes Status: Acute Qualifiers: Acute renal failure type: with acute tubular necrosis Qualified Code(s): N17.0 - Acute kidney failure with tubular necrosis (4) Uncontrolled hypertension Current Visit: Yes Status: Acute (5) Leukocytosis Current Visit: Yes Status: Acute (6) Diabetes Current Visit: Yes Status: Chronic Subjective Date of service: 08/19/18 Interval history: in the room. Spoke to grand daughter on phone. Feeling better. No chest pain. SOB better. Objective Vital Signs Temp Pulse Resp BP BP Pulse Ox 08/19/18 09:24 98.6 F 97 H 14 160/71 99 08/19/18 03:58 98.6 F 103 H 18 175/74 98 08/19/18 01:51 98.8 F 99 H 16 169/71 97 08/19/18 01:18 104 H 08/19/18 01:00 98.8 F 100 H 16 169/71 97 08/19/18 00:45 98.6 F 105 H 18 170/70 96 08/19/18 00:37 18 08/19/18 00:10 102 H 21 170/76 96 08/19/18 00:05 105 H 170/70 08/19/18 00:00 103 H 19 159/67 96 08/18/18 23:50 100 H 21 159/67 96 08/18/18 23:40 102 H 19 174/72 96 08/18/18 23:30 102 H 20 157/63 95 08/18/18 23:20 102 H 17 157/63 98 08/18/18 23:10 101 H 14 159/67 97 08/18/18 23:09 98 08/18/18 23:06 100 H 18 159/67 97 08/18/18 23:00 100 H 14 157/63 98 08/18/18 22:49 99 H 19 157/63 97 08/18/18 22:00 104 H 22 153/70 98 08/18/18 21:00 100 H 18 161/72 97 08/18/18 20:00 99 H 21 174/72 98 08/18/18 19:00 101 H 20 164/64 97 08/18/18 18:00 103 H 22 147/73 98 08/18/18 17:00 100 H 20 155/66 97 08/18/18 16:00 103 H 21 157/88 96 - Physical Examination HEENT: Positive: PERRL, Normocephaly, Mucus Membranes Moist Neck: Positive: neck supple, trachea midline. Negative: JVD/HJR Cardiac: Positive: Regular Rhythm, Systolic Murmur ([place] systolic 4/6 at apex and TERESA at base of the heart and LSB 3/6) Lungs: Positive: Normal Breath Sounds, Rales (right base) Neuro: Positive: Grossly Intact Abdomen: Positive: Soft. Negative: Tender Skin: Negative: Rash, Wound Musculoskeletal: No Pain Extremities: Absent: edema - Labs and Meds CBC 08/19/18 Range/Units 04:55 WBC 10.1 (4.5-11.0) K/mm3 RBC 3.17 L (3.65-5.03) M/mm3 Hgb 10.0 L (10.1-14.3) gm/dl Hct 29.2 L (30.3-42.9) % Plt Count 362 (140-440) K/mm3 Lymph # 1.8 (1.2-5.4) K/mm3 [place] # 0.6 (0.0-0.8) K/mm3 Eos # 0.1 (0.0-0.4) K/mm3 Baso # 0.0 (0.0-0.1) K/mm3 Comprehensive Metabolic Panel 08/19/18 Range/Units 04:55 Sodium 141 (137-145) mmol/L Potassium 4.2 (3.6-5.0) mmol/L Chloride 105.5 (98-107) mmol/L Carbon Dioxide 22 (22-30) mmol/L BUN 47 H (7-17) mg/dL Creatinine 2.5 H (0.7-1.2) mg/dL Glucose 126 H (65-100) mg/dL Calcium 8.3 L (8.4-10.2) mg/dL - Imaging and Cardiology EKG: report reviewed, image reviewed Echo: pending - EKG Sinus rhythms and dysrhythmias: sinus rhythm
[2018-08-19] MEDS: HumuLIN R SUB-Q SCH (22:52)
[2018-08-20 07:20] LABS: Calcium 8.3 mg/dL (8.4-10.2)
[2018-08-20] MEDS: HumuLIN R SUB-Q SCH ×4 (08:02→22:50)
[2018-08-20] MEDS: LOVENOX SUB-Q SCH (09:45)
[2018-08-20] MEDS: LOPRESSOR PO SCH ×2 (09:45→22:49)
[2018-08-20] MEDS: SODIUM CHLORIDE FLUSH SYRINGE 10 ML IV SCH ×2 (09:45→22:51)
[2018-08-20] MEDS: NORVASC PO SCH (09:45)
[2018-08-20] MEDS: CATAPRES PO SCH ×2 (09:45→22:50)
--- NOTE | 2018-08-20 11:21 | Progress Note ---
Assessment and Plan 1. Acute kidney injury: [place] in the setting of CHF exacerbation. Suspect Cardio-renal syndrome. Urine studies pending. BUN is improving and creatinine leveled off. Monitor renal function. 2. FEN: Volume overload, improving. 3. Uncontrolled HTN: Increase Metoprolol. Monitor. 4. Acute CHF: Followed by Cards. 5. DM-2. Subjective Date of service: 08/20/18 Interval history: Patient was seen and examined at the bedside. Objective - Vital Signs Vital signs: Vital Signs - 12hr 08/20/18 08/20/18 08/20/18 00:05 05:17 08:54 Temperature 97.9 F 97.9 F 98.3 F Pulse Rate 75 72 85 Respiratory 16 16 18 Rate Blood Pressure 148/57 168/65 170/68 O2 Sat by Pulse 97 95 93 Oximetry - General Appearance General appearance: well-developed, well-nourished, appears stated age, other (not in distress) EENT: ATNC, PERRL Neck: supple Respiratory: Present: Clear to Ascultation Cardiology: regular, S1S2, no murmurs Gastrointestinal: normoactive bowel sounds, no tenderness, no distended Integumentary: no rash, warm and dry Neurologic: other (able to move extremities) Musculoskeletal: other (no edema) - Lab 08/19/18 04:55 08/20/18 06:02 Most recent lab results Calcium 8.3 mg/dL (8.4-10.2) L 08/20/18 06:02 Magnesium 2.60 mg/dL (1.7-2.3) H 08/18/18 08:11 Medications & Allergies - Medications Allergies/Adverse Reactions: Allergies No Known Allergies Allergy (Unverified 11/09/13 09:52) Home Medications: Home Medications Medication Instructions Recorded Confirmed Last Taken Type amLODIPine [Norvasc] 10 mg PO DAILY 12/28/17 08/18/18 Unknown History cloNIDine [Catapres] 0.1 mg PO BID 12/28/17 08/18/18 Unknown History glipiZIDE [Glucotrol] 10 mg PO BID 12/28/17 08/18/18 Unknown History Furosemide [Lasix] 20 mg PO BID 08/18/18 08/18/18 Unknown History Active Medications: Generic Name Dose Route Start Last Admin Trade Name Freq PRN Reason Stop Dose Admin Acetaminophen 650 mg 08/18/18 13:10 08/19/18 20:01 Tylenol PO 650 mg Q4H PRN Administration Pain MILD(1-3)/Fever >100.5/MEHTA Amlodipine Besylate 10 mg 08/18/18 14:00 08/20/18 09:45 Norvasc PO 10 mg DAILY ANAHY Administration Clonidine HCl 0.1 mg 08/18/18 14:00 08/20/18 09:45 Catapres PO 0.1 mg BID ANAHY Administration Enoxaparin Sodium 30 mg 08/19/18 10:00 08/20/18 09:45 Lovenox SUB-Q 30 mg QDAY ANAHY Administration Insulin Human Regular 0 units 08/19/18 22:37 08/20/18 08:02 Humulin R SUB-Q Not Given ACHS [facility] Protocol Metoprolol Tartrate 25 mg 08/19/18 13:00 08/20/18 09:45 Lopressor PO 25 mg BID ANAHY Administration Morphine Sulfate 2 mg 08/18/18 13:10 Morphine IV Q4H PRN Pain, Moderate (4-6) Ondansetron HCl 4 mg 08/18/18 13:10 Zofran IV Q8H PRN Nausea And Vomiting Sodium Chloride 10 ml 08/18/18 22:00 08/20/18 09:45 Sodium Chloride Flush Syringe 10 Ml IV 10 ml BID ANAHY Administration Sodium Chloride 10 ml 08/18/18 13:10 Sodium Chloride Flush Syringe 10 Ml IV PRN PRN LINE FLUSH
--- NOTE | 2018-08-20 11:38 | Progress Note ---
Assessment and Plan (1) Acute heart failure Current Visit: Yes Status: Acute improving. Diastolic heart failure. (2) Systolic murmur Current Visit: Yes Status: Acute Moderate and moderate MR (3) ARF (acute renal failure) Current Visit: Yes Status: Acute Qualifiers: Acute renal failure type: with acute tubular necrosis Qualified Code(s): N17.0 - Acute kidney failure with tubular necrosis (4) Uncontrolled hypertension Current Visit: Yes Status: Acute (5) Leukocytosis Current Visit: Yes Status: Acute (6) Diabetes Current Visit: Yes Status: Chronic Subjective Interval history: in the room. No chest pain. SOB better. Objective Vital Signs Temp Pulse Resp BP Pulse Ox 08/20/18 08:54 98.3 F 85 18 170/68 93 08/20/18 05:17 97.9 F 72 16 168/65 95 08/20/18 00:05 97.9 F 75 16 148/57 97 08/19/18 22:00 18 08/19/18 21:26 96 H 154/56 08/19/18 20:17 98.3 F 96 H 16 154/56 97 08/19/18 20:00 98 H 08/19/18 17:02 97.9 F 99 H 14 176/76 96 - Physical Examination HEENT: Positive: PERRL, Normocephaly, Mucus Membranes Moist Neck: Positive: neck supple, trachea midline. Negative: JVD/HJR Cardiac: Positive: Audible Murmur (Holosystolic murmur 4/6 at apex. TERESA with late peaking 3/6 at the aortic area conducted to the carotids.) Neuro: Positive: Grossly Intact Abdomen: Positive: Soft. Negative: Tender Skin: Negative: Rash, Wound Musculoskeletal: No Pain Extremities: Absent: edema - Labs and Meds Comprehensive Metabolic Panel 08/20/18 Range/Units 06:02 Sodium 143 (137-145) mmol/L Potassium 4.3 (3.6-5.0) mmol/L Chloride 106.6 (98-107) mmol/L Carbon Dioxide 23 (22-30) mmol/L BUN 40 H (7-17) mg/dL Creatinine 2.5 H (0.7-1.2) mg/dL Glucose 83 (65-100) mg/dL Calcium 8.3 L (8.4-10.2) mg/dL - Imaging and Cardiology EKG: report reviewed, image reviewed Echo: pending - Telemetry EKG Rhythm: Sinus Rhythm - EKG Sinus rhythms and dysrhythmias: sinus rhythm
[2018-08-20] MEDS ORDERED: LOPRESSOR PO ONE (12:00)
--- NOTE | 2018-08-20 12:43 | Progress Note ---
Assessment and Plan Assessment and plan: Acute resp failure due to CHF. Admitted to Tele Supplemental Oxygen Acute CHF Echo to determine EF Acute kidney injury with Cr 2.3 on admission Cr same as yesterday, 2.5 Monitor Creatinine Systolic heart murmur Hypertensive urgency. Monitor BP Hydralazine iv prn Full code status History Interval history: Less Shortness of breath Gen weakness Hospitalist Physical - Physical exam Narrative exam: GEN: Not in acute distress, lying in bed,obese HEENT: Normocephalic, atraumatic, Neck: supple, No JVD Lungs: Bilateral crackles, no wheeze Heart:S1 and S2 regular, no murmurs, rubs or gallop, Abd:soft, non tender, non distended, normal bowel sounds Ext: No edema, no clubbing or cyanosis Neuro: Awake,alert, No focal neurological signs, - Constitutional Vitals: Temp Pulse Resp BP Pulse Ox 98.3 F 85 18 170/68 93 08/20/18 08:54 08/20/18 08:54 08/20/18 08:54 08/20/18 08:54 08/20/18 08:54 General appearance: Present: no acute distress Results - Labs CBC & Chem 7: 08/19/18 04:55 08/20/18 06:02 Labs: Laboratory Last Values WBC 10.1 K/mm3 (4.5-11.0) 08/19/18 04:55 RBC 3.17 M/mm3 (3.65-5.03) L 08/19/18 04:55 Hgb 10.0 gm/dl (10.1-14.3) L 08/19/18 04:55 Hct 29.2 % (30.3-42.9) L 08/19/18 04:55 MCV 92 fl (79-97) 08/19/18 04:55 MCH 32 pg (28-32) 08/19/18 04:55 MCHC 34 % (30-34) 08/19/18 04:55 RDW 15.3 % (13.2-15.2) H 08/19/18 04:55 Plt Count 362 K/mm3 (140-440) 08/19/18 04:55 Lymph % (Auto) 18.3 % (13.4-35.0) 08/19/18 04:55 [place] % (Auto) 6.1 % (0.0-7.3) 08/19/18 04:55 Eos % (Auto) 1.3 % (0.0-4.3) 08/19/18 04:55 Baso % (Auto) 0.4 % (0.0-1.8) 08/19/18 04:55 Lymph # 1.8 K/mm3 (1.2-5.4) 08/19/18 04:55 [place] # 0.6 K/mm3 (0.0-0.8) 08/19/18 04:55 Eos # 0.1 K/mm3 (0.0-0.4) 08/19/18 04:55 Baso # 0.0 K/mm3 (0.0-0.1) 08/19/18 04:55 Seg Neutrophils % 73.9 % (40.0-70.0) H 08/19/18 04:55 Seg Neutrophils # 7.5 K/mm3 (1.8-7.7) 08/19/18 04:55 PT 12.2 Sec. (12.2-14.9) 08/18/18 08:11 INR 0.86 (0.87-1.13) L 08/18/18 08:11 APTT 20.8 Sec. (24.2-36.6) L 08/18/18 08:11 D-Dimer 1261.26 ng/mlDDU (0-234) H 08/18/18 08:11 VBG pH 7.458 (7.320-7.420) H 08/18/18 08:11 Sodium 143 mmol/L (137-145) 08/20/18 06:02 Potassium 4.3 mmol/L (3.6-5.0) 08/20/18 06:02 Chloride 106.6 mmol/L (98-107) 08/20/18 06:02 Carbon Dioxide 23 mmol/L (22-30) 08/20/18 06:02 Anion Gap 18 mmol/L 08/20/18 06:02 BUN 40 mg/dL (7-17) H 08/20/18 06:02 Creatinine 2.5 mg/dL (0.7-1.2) H 08/20/18 06:02 Estimated GFR 18 ml/min 08/20/18 06:02 BUN/Creatinine Ratio 16 % 08/20/18 06:02 Glucose 83 mg/dL (65-100) 08/20/18 06:02 POC Glucose 222 (70-105) H 08/20/18 12:21 Ketones Quantitative Negative (Negative) 08/18/18 08:11 Lactic Acid 0.70 mmol/L (0.7-2.0) 08/18/18 08:11 Calcium 8.3 mg/dL (8.4-10.2) L 08/20/18 06:02 Magnesium 2.60 mg/dL (1.7-2.3) H 08/18/18 08:11 Total Bilirubin 0.30 mg/dL (0.1-1.2) 08/18/18 08:11 Direct Bilirubin < 0.2 mg/dL (0-0.2) 08/18/18 08:11 Indirect Bilirubin 0.1 mg/dL 08/18/18 08:11 AST 34 units/L (5-40) 08/18/18 08:11 ALT 23 units/L (7-56) 08/18/18 08:11 Alkaline Phosphatase 131 units/L (35-129) H 08/18/18 08:11 Total Creatine Kinase 80 units/L (30-135) 08/18/18 08:11 CK-MB (CK-2) 2.1 ng/mL (0.0-4.0) 08/18/18 08:11 CK-MB (CK-2) Rel Index 2.6 (0-4) 08/18/18 08:11 Troponin T 0.027 ng/mL (0.00-0.029) 08/18/18 08:11 NT-Pro-B Natriuret Pep 5036 pg/mL (0-900) H 08/18/18 08:11 Total Protein 7.5 g/dL (6.3-8.2) 08/18/18 08:11 Albumin 3.7 g/dL (3.9-5) L 08/18/18 08:11 Albumin/Globulin Ratio 1.0 % 08/18/18 08:11 Urine Color Yellow (Yellow) 08/18/18 15:58 Urine Turbidity Clear (Clear) 08/18/18 15:58 Urine pH 8.0 (5.0-7.0) H 08/18/18 15:58 Ur Specific [place] 1.010 (1.003-1.030) 08/18/18 15:58 Urine Protein >500 mg/dL (Negative) 08/18/18 15:58 Urine Glucose (UA) 50 mg/dL (Negative) 08/18/18 15:58 Urine Ketones Neg mg/dL (Negative) 08/18/18 15:58 Urine Blood Neg (Negative) 08/18/18 15:58 Urine Nitrite Neg (Negative) 08/18/18 15:58 Urine Bilirubin Neg (Negative) 08/18/18 15:58 Urine Urobilinogen < 2.0 mg/dL (<2.0) 08/18/18 15:58 Ur Leukocyte Esterase Neg (Negative) 08/18/18 15:58 Urine WBC (Auto) 1.0 /HPF (0.0-6.0) 08/18/18 15:58 Urine RBC (Auto) 11.0 /HPF (0.0-6.0) 08/18/18 15:58 U Epithel Cells (Auto) 1.0 /HPF (0-13.0) 08/18/18 15:58
[2018-08-21 06:29] LABS: Calcium 7.9 mg/dL (8.4-10.2)
[2018-08-21] MEDS: HumuLIN R SUB-Q SCH ×4 (08:49→22:18)
--- NOTE | 2018-08-21 10:02 | Progress Note ---
Assessment and Plan 1. Acute kidney injury: [place] in the setting of CHF exacerbation. Suspect Cardio-renal syndrome. Renal US was negative for hydronephrosis. Urine studies pending. Renal function plateaued. Monitor renal function. 2. FEN: Volume overload, improving. 3. Uncontrolled HTN: Increase Metoprolol. Monitor. 4. Acute CHF: Followed by Cards. 5. DM-2. Subjective Date of service: 08/21/18 Interval history: Patient was seen and examined at the bedside. History obtained through the strand and binder controller phone line. Objective - Vital Signs Vital signs: Vital Signs - 12hr 08/20/18 08/20/18 08/20/18 22:49 22:50 23:34 Temperature 98.1 F Pulse Rate 75 75 71 Respiratory 16 Rate Blood Pressure 147/57 147/57 151/56 O2 Sat by Pulse 96 Oximetry 08/21/18 08/21/18 08/21/18 02:00 04:51 08:13 Temperature 97.9 F 98.2 F Pulse Rate 74 69 Respiratory 13 Rate Blood Pressure 179/66 O2 Sat by Pulse 97 Oximetry 08/21/18 08:14 Temperature 98.2 F Pulse Rate 81 Respiratory 18 Rate Blood Pressure 185/80 O2 Sat by Pulse 96 Oximetry - General Appearance General appearance: well-developed, well-nourished, appears stated age, obese, other (not in distress) EENT: ATNC, PERRL, mucous membranes moist Neck: supple Respiratory: Present: Clear to Ascultation Cardiology: regular, S1S2, no murmurs Gastrointestinal: normoactive bowel sounds, no tenderness, no distended Integumentary: no rash, warm and dry Neurologic: no focal deficit, no asterixis Musculoskeletal: other (no edema) Psychiatric: cooperative - Lab 08/19/18 04:55 08/21/18 05:33 Most recent lab results Calcium 7.9 mg/dL (8.4-10.2) L 08/21/18 05:33 Phosphorus 4.70 mg/dL (2.5-4.5) H 08/21/18 05:33 Magnesium 2.60 mg/dL (1.7-2.3) H 08/18/18 08:11 Medications & Allergies - Medications Allergies/Adverse Reactions: Allergies No Known Allergies Allergy (Unverified 11/09/13 09:52) Home Medications: Home Medications Medication Instructions Recorded Confirmed Last Taken Type amLODIPine [Norvasc] 10 mg PO DAILY 12/28/17 08/18/18 Unknown History cloNIDine [Catapres] 0.1 mg PO BID 12/28/17 08/18/18 Unknown History glipiZIDE [Glucotrol] 10 mg PO BID 12/28/17 08/18/18 Unknown History Furosemide [Lasix] 20 mg PO BID 08/18/18 08/18/18 Unknown History Active Medications: Generic Name Dose Route Start Last Admin Trade Name Freq PRN Reason Stop Dose Admin Acetaminophen 650 mg 08/18/18 13:10 08/19/18 20:01 Tylenol PO 650 mg Q4H PRN Administration Pain MILD(1-3)/Fever >100.5/MEHTA Amlodipine Besylate 10 mg 08/18/18 14:00 08/20/18 09:45 Norvasc PO 10 mg DAILY ANAHY Administration Clonidine HCl 0.1 mg 08/18/18 14:00 08/20/18 22:50 Catapres PO 0.1 mg BID ANAHY Administration Enoxaparin Sodium 30 mg 08/19/18 10:00 08/20/18 09:45 Lovenox SUB-Q 30 mg QDAY ANAHY Administration Insulin Human Regular 0 units 08/19/18 22:37 08/21/18 08:49 Humulin R SUB-Q Not Given [facility] Protocol Metoprolol Tartrate 50 mg 08/20/18 11:22 08/20/18 22:49 Lopressor PO 50 mg BID ANAHY Administration Morphine Sulfate 2 mg 08/18/18 13:10 Morphine IV Q4H PRN Pain, Moderate (4-6) Ondansetron HCl 4 mg 08/18/18 13:10 Zofran IV Q8H PRN Nausea And Vomiting Sodium Chloride 10 ml 08/18/18 22:00 08/20/18 22:51 Sodium Chloride Flush Syringe 10 Ml IV 10 ml BID ANAHY Administration Sodium Chloride 10 ml 08/18/18 13:10 Sodium Chloride Flush Syringe 10 Ml IV PRN PRN LINE FLUSH
[2018-08-21] MEDS: CATAPRES PO SCH ×2 (10:07→22:13)
[2018-08-21] MEDS: LOVENOX SUB-Q SCH (10:07)
[2018-08-21] MEDS: LOPRESSOR PO SCH ×2 (10:07→22:12)
[2018-08-21] MEDS: NORVASC PO SCH (10:07)
--- NOTE | 2018-08-21 13:25 | Progress Note ---
Assessment and Plan 1) Acute heart failure Current Visit: Yes Status: Acute improving. Diastolic heart failure. (2) Systolic murmur Current Visit: Yes Status: Acute Moderate and moderate MR (3) ARF (acute renal failure) Current Visit: Yes Status: Acute Qualifiers: Acute renal failure type: with acute tubular necrosis Qualified Code(s): N17.0 - Acute kidney failure with tubular necrosis (4) Uncontrolled hypertension Current Visit: Yes Status: Acute (5) Leukocytosis Current Visit: Yes Status: Acute (6) Diabetes Current Visit: Yes Status: Chronic Subjective Date of service: 08/21/18 Interval history: Spoe with daughter on telephone as patient cannot speak setswana. Patient claims she has to stay on oxygen during night. BR privileges OK Objective Vital Signs Temp Pulse Resp BP Pulse Ox 08/21/18 08:14 98.2 F 81 18 185/80 96 08/21/18 08:13 98.2 F 08/21/18 04:51 97.9 F 69 13 179/66 97 08/21/18 02:00 74 08/20/18 23:34 98.1 F 71 16 151/56 96 08/20/18 22:50 75 147/57 08/20/18 22:49 75 147/57 08/20/18 22:00 18 08/20/18 19:27 98.7 F 75 12 147/57 92 08/20/18 16:09 70 159/63 90 - Physical Examination HEENT: Positive: PERRL, Normocephaly, Mucus Membranes Moist Neck: Positive: neck supple, trachea midline. Negative: JVD/HJR Cardiac: Positive: Regular Rhythm, Systolic Murmur (High pitched 3/6 with mid peaking conducted to the carotids from base of the heart.Holosystolic murmur at apex3/6) Neuro: Positive: Grossly Intact Abdomen: Positive: Soft. Negative: Tender Skin: Negative: Rash, Wound Musculoskeletal: No Pain Extremities: Absent: edema - Labs and Meds Comprehensive Metabolic Panel 08/21/18 Range/Units 05:33 Sodium 141 (137-145) mmol/L Potassium 4.6 (3.6-5.0) mmol/L Chloride 108.0 H (98-107) mmol/L Carbon Dioxide 22 (22-30) mmol/L BUN 42 H (7-17) mg/dL Creatinine 2.6 H (0.7-1.2) mg/dL Glucose 114 H (65-100) mg/dL Calcium 7.9 L (8.4-10.2) mg/dL - Imaging and Cardiology EKG: report reviewed, image reviewed Echo: pending, report reviewed - EKG Sinus rhythms and dysrhythmias: sinus rhythm
[2018-08-21] MEDS: APRESOLINE IV PRN (20:09)
[2018-08-21] MEDS: SODIUM CHLORIDE FLUSH SYRINGE 10 ML IV SCH (22:12)
[2018-08-22 00:39] LABS: Creatinine,Urine 70.3 mg/dL (0.1-20.0)
[2018-08-22 00:52] LABS: Creatinine,Urine 70.3 mg/dL (0.1-20.0); Protein/Creatinine Ratio,Urine 1.22
[2018-08-22] MEDS: SODIUM CHLORIDE FLUSH SYRINGE 10 ML IV SCH ×3 (00:52→21:32)
[2018-08-22] MEDS: APRESOLINE IV PRN ×2 (03:37→07:35)
[2018-08-22 08:04] LABS: Calcium 8.2 mg/dL (8.4-10.2)
--- NOTE | 2018-08-22 08:20 | Progress Note ---
Assessment and Plan Assessment and plan: Acute resp failure due to CHF. Admitted to Tele Supplemental Oxygen Acute CHF Echo to determine EF Acute kidney injury with Cr 2.3 on admission Cr 2.6 Monitor Creatinine OK to dc as oer Nephrology Systolic heart murmur Hypertensive urgency. Monitor BP Hydralazine iv prn Likely dc in am if BP improved Full code status History Interval history: Less Shortness of breath Gen weakness Hospitalist Physical - Physical exam Narrative exam: GEN: Not in acute distress, lying in bed,obese HEENT: Normocephalic, atraumatic, Neck: supple, No JVD Lungs: Bilateral crackles, no wheeze Heart:S1 and S2 regular, no murmurs, rubs or gallop, Abd:soft, non tender, non distended, normal bowel sounds Ext: No edema, no clubbing or cyanosis Neuro: Awake,alert, No focal neurological signs, - Constitutional Vitals: Temp Pulse Resp BP Pulse Ox 97.8 F 72 18 175/68 96 08/22/18 00:04 08/22/18 07:35 08/22/18 00:04 08/22/18 07:35 08/22/18 00:04 General appearance: Present: no acute distress Results - Labs CBC & Chem 7: 08/19/18 04:55 08/22/18 07:16 Labs: Laboratory Last Values WBC 10.1 K/mm3 (4.5-11.0) 08/19/18 04:55 RBC 3.17 M/mm3 (3.65-5.03) L 08/19/18 04:55 Hgb 10.0 gm/dl (10.1-14.3) L 08/19/18 04:55 Hct 29.2 % (30.3-42.9) L 08/19/18 04:55 MCV 92 fl (79-97) 08/19/18 04:55 MCH 32 pg (28-32) 08/19/18 04:55 MCHC 34 % (30-34) 08/19/18 04:55 RDW 15.3 % (13.2-15.2) H 08/19/18 04:55 Plt Count 362 K/mm3 (140-440) 08/19/18 04:55 Lymph % (Auto) 18.3 % (13.4-35.0) 08/19/18 04:55 [place] % (Auto) 6.1 % (0.0-7.3) 08/19/18 04:55 Eos % (Auto) 1.3 % (0.0-4.3) 08/19/18 04:55 Baso % (Auto) 0.4 % (0.0-1.8) 08/19/18 04:55 Lymph # 1.8 K/mm3 (1.2-5.4) 08/19/18 04:55 [place] # 0.6 K/mm3 (0.0-0.8) 08/19/18 04:55 Eos # 0.1 K/mm3 (0.0-0.4) 08/19/18 04:55 Baso # 0.0 K/mm3 (0.0-0.1) 08/19/18 04:55 Seg Neutrophils % 73.9 % (40.0-70.0) H 08/19/18 04:55 Seg Neutrophils # 7.5 K/mm3 (1.8-7.7) 08/19/18 04:55 PT 12.2 Sec. (12.2-14.9) 08/18/18 08:11 INR 0.86 (0.87-1.13) L 08/18/18 08:11 APTT 20.8 Sec. (24.2-36.6) L 08/18/18 08:11 D-Dimer 1261.26 ng/mlDDU (0-234) H 08/18/18 08:11 VBG pH 7.458 (7.320-7.420) H 08/18/18 08:11 Sodium 142 mmol/L (137-145) 08/22/18 07:16 Potassium 4.4 mmol/L (3.6-5.0) 08/22/18 07:16 Chloride 106.9 mmol/L (98-107) 08/22/18 07:16 Carbon Dioxide 20 mmol/L (22-30) L 08/22/18 07:16 Anion Gap 20 mmol/L 08/22/18 07:16 BUN 42 mg/dL (7-17) H 08/22/18 07:16 Creatinine 2.2 mg/dL (0.7-1.2) H 08/22/18 07:16 Estimated GFR 21 ml/min 08/22/18 07:16 BUN/Creatinine Ratio 19 % 08/22/18 07:16 Glucose 122 mg/dL (65-100) H 08/22/18 07:16 POC Glucose 116 (70-105) H 08/22/18 06:11 Ketones Quantitative Negative (Negative) 08/18/18 08:11 Lactic Acid 0.70 mmol/L (0.7-2.0) 08/18/18 08:11 Calcium 8.2 mg/dL (8.4-10.2) L 08/22/18 07:16 Phosphorus 4.70 mg/dL (2.5-4.5) H 08/21/18 05:33 Magnesium 2.60 mg/dL (1.7-2.3) H 08/18/18 08:11 Total Bilirubin 0.30 mg/dL (0.1-1.2) 08/18/18 08:11 Direct Bilirubin < 0.2 mg/dL (0-0.2) 08/18/18 08:11 Indirect Bilirubin 0.1 mg/dL 08/18/18 08:11 AST 34 units/L (5-40) 08/18/18 08:11 ALT 23 units/L (7-56) 08/18/18 08:11 Alkaline Phosphatase 131 units/L (35-129) H 08/18/18 08:11 Total Creatine Kinase 80 units/L (30-135) 08/18/18 08:11 CK-MB (CK-2) 2.1 ng/mL (0.0-4.0) 08/18/18 08:11 CK-MB (CK-2) Rel Index 2.6 (0-4) 08/18/18 08:11 Troponin T 0.027 ng/mL (0.00-0.029) 08/18/18 08:11 NT-Pro-B Natriuret Pep 5036 pg/mL (0-900) H 08/18/18 08:11 Total Protein 7.5 g/dL (6.3-8.2) 08/18/18 08:11 Albumin 3.7 g/dL (3.9-5) L 08/18/18 08:11 Albumin/Globulin Ratio 1.0 % 08/18/18 08:11 Urine Color Yellow (Yellow) 08/18/18 15:58 Urine Turbidity Clear (Clear) 08/18/18 15:58 Urine pH 8.0 (5.0-7.0) H 08/18/18 15:58 Ur Specific [place] 1.010 (1.003-1.030) 08/18/18 15:58 Urine Protein >500 mg/dL (Negative) 08/18/18 15:58 Urine Glucose (UA) 50 mg/dL (Negative) 08/18/18 15:58 Urine Ketones Neg mg/dL (Negative) 08/18/18 15:58 Urine Blood Neg (Negative) 08/18/18 15:58 Urine Nitrite Neg (Negative) 08/18/18 15:58 Urine Bilirubin Neg (Negative) 08/18/18 15:58 Urine Urobilinogen < 2.0 mg/dL (<2.0) 08/18/18 15:58 Ur Leukocyte Esterase Neg (Negative) 08/18/18 15:58 Urine WBC (Auto) 1.0 /HPF (0.0-6.0) 08/18/18 15:58 Urine RBC (Auto) 11.0 /HPF (0.0-6.0) 08/18/18 15:58 U Epithel Cells (Auto) 1.0 /HPF (0-13.0) 08/18/18 15:58 Urine Creatinine 70.3 mg/dL (0.1-20.0) H 08/21/18 00:01 Protein/Creatinin Ratio 1.22 08/21/18 00:01 Urine Sodium 55 mmol/L 08/18/18 00:01 Urine Total Protein 86 mg/dL (5-11.8) H 08/21/18 00:01
[2018-08-22] MEDS: HumuLIN R SUB-Q SCH ×4 (08:21→21:33)
--- NOTE | 2018-08-22 09:23 | Progress Note ---
Assessment and Plan 1. Acute kidney injury: [place] in the setting of CHF exacerbation. Suspect Cardio-renal syndrome. Renal US was negative for hydronephrosis. Renal function is improving. Monitor renal function. 2. FEN: Volume overload, improved. 3. Uncontrolled HTN: Hydralazine was added by Cards. Monitor. 4. Acute CHF: Followed by Cards. 5. DM-2. Subjective Date of service: 08/22/18 Interval history: Patient was seen and examined at the bedside. History obtained through the autism teacher. Objective - Vital Signs Vital signs: Vital Signs - 12hr 08/21/18 08/21/18 08/21/18 22:09 22:12 22:13 Temperature Pulse Rate 77 77 77 Respiratory 32 H Rate Blood Pressure 190/67 190/67 Blood Pressure 190/67 [Right] O2 Sat by Pulse 97 Oximetry 08/22/18 08/22/18 00:04 07:35 Temperature 97.8 F Pulse Rate 62 72 Respiratory 18 Rate Blood Pressure 196/81 175/68 Blood Pressure [Right] O2 Sat by Pulse 96 Oximetry - General Appearance General appearance: well-developed, well-nourished, appears stated age, other (not in distress) EENT: ATNC, mucous membranes moist Neck: supple Respiratory: Present: Clear to Ascultation Cardiology: regular, S1S2, no murmurs Gastrointestinal: normoactive bowel sounds, no tenderness, no distended Integumentary: no rash, warm and dry Neurologic: no focal deficit Musculoskeletal: other (no edema) Psychiatric: cooperative - Lab 08/19/18 04:55 08/22/18 07:16 Most recent lab results Calcium 8.2 mg/dL (8.4-10.2) L 08/22/18 07:16 Phosphorus 4.70 mg/dL (2.5-4.5) H 08/21/18 05:33 Magnesium 2.60 mg/dL (1.7-2.3) H 08/18/18 08:11 Urine Creatinine 70.3 mg/dL (0.1-20.0) H 08/21/18 00:01 Urine Sodium 55 mmol/L 08/18/18 00:01 Urine Total Protein 86 mg/dL (5-11.8) H 08/21/18 00:01 Medications & Allergies - Medications Allergies/Adverse Reactions: Allergies No Known Allergies Allergy (Unverified 11/09/13 09:52) Home Medications: Home Medications Medication Instructions Recorded Confirmed Last Taken Type amLODIPine [Norvasc] 10 mg PO DAILY 12/28/17 08/18/18 Unknown History cloNIDine [Catapres] 0.1 mg PO BID 12/28/17 08/18/18 Unknown History glipiZIDE [Glucotrol] 10 mg PO BID 12/28/17 08/18/18 Unknown History Furosemide [Lasix] 20 mg PO BID 08/18/18 08/18/18 Unknown History Active Medications: Generic Name Dose Route Start Last Admin Trade Name Freq PRN Reason Stop Dose Admin Acetaminophen 650 mg 08/18/18 13:10 08/19/18 20:01 Tylenol PO 650 mg Q4H PRN Administration Pain MILD(1-3)/Fever >100.5/MEHTA Amlodipine Besylate 10 mg 08/18/18 14:00 08/21/18 10:07 Norvasc PO 10 mg DAILY ANAHY Administration Clonidine HCl 0.1 mg 08/18/18 14:00 08/21/18 22:13 Catapres PO 0.1 mg BID ANAHY Administration Enoxaparin Sodium 30 mg 08/19/18 10:00 08/21/18 10:07 Lovenox SUB-Q 30 mg QDAY ANAHY Administration Hydralazine HCl 10 mg 08/21/18 18:19 08/22/18 07:35 Apresoline IV 10 mg Q4HR PRN Administration SBP>170 or DBP>110 Insulin Human Regular 0 units 08/19/18 22:37 08/22/18 08:21 Humulin R SUB-Q Not Given [facility] Protocol Metoprolol Tartrate 75 mg 08/21/18 15:56 08/21/18 22:12 Lopressor PO 75 mg BID ANAHY Administration Morphine Sulfate 2 mg 08/18/18 13:10 Morphine IV Q4H PRN Pain, Moderate (4-6) Ondansetron HCl 4 mg 08/18/18 13:10 Zofran IV Q8H PRN Nausea And Vomiting Sodium Chloride 10 ml 08/18/18 22:00 08/22/18 00:52 Sodium Chloride Flush Syringe 10 Ml IV Not Given BID ANAHY Sodium Chloride 10 ml 08/18/18 13:10 Sodium Chloride Flush Syringe 10 Ml IV PRN PRN LINE FLUSH
[2018-08-22] MEDS: CATAPRES PO SCH ×2 (09:57→21:32)
[2018-08-22] MEDS: LOVENOX SUB-Q SCH (09:57)
[2018-08-22] MEDS: LOPRESSOR PO SCH ×2 (09:57→21:31)
[2018-08-22] MEDS: NORVASC PO SCH (09:57)
--- NOTE | 2018-08-22 12:49 | Progress Note ---
Assessment and Plan Assessment and plan: Acute resp failure due to diastolic heart failure Admitted to Tele Supplemental Oxygen Acute Diastolic heart failure. EF 55-60%. Cardiology following. Acute kidney injury with Cr 2.3 on admission Cr 2.6 Monitor Creatinine Moderate and moderate MR. Hypertensive urgency. Monitor BP Hydralazine iv prn Likely dc in am if BP improved Full code status History Interval history: No new issues overnight. Patient still complains of dyspnea with minimal ex ertion. Translation was done by niece over the telephone. Hospitalist Physical - Constitutional Vitals: Temp Pulse Resp BP Pulse Ox 97.8 F 72 18 175/68 96 08/22/18 00:04 08/22/18 09:57 08/22/18 00:04 08/22/18 09:57 08/22/18 00:04 General appearance: Present: no acute distress - EENT Eyes: Present: PERRL, EOM intact ENT: hearing intact, clear oral mucosa, dentition normal - Neck Neck: Present: supple, normal ROM - Respiratory Respiratory effort: normal Respiratory: bilateral: CTA - Cardiovascular Rhythm: regular Heart Sounds: Present: S1 & S2. Absent: gallop, rub - Extremities Extremities: no ischemia, No edema, Full ROM - Abdominal General gastrointestinal: soft, non-tender, non-distended, normal bowel sounds - Integumentary Integumentary: Present: clear, warm, dry - Neurologic Neurologic: CNII-XII intact, moves all extremities Results - Labs CBC & Chem 7: 08/19/18 04:55 08/22/18 07:16 Labs: Laboratory Last Values WBC 10.1 K/mm3 (4.5-11.0) 08/19/18 04:55 RBC 3.17 M/mm3 (3.65-5.03) L 08/19/18 04:55 Hgb 10.0 gm/dl (10.1-14.3) L 08/19/18 04:55 Hct 29.2 % (30.3-42.9) L 08/19/18 04:55 MCV 92 fl (79-97) 08/19/18 04:55 MCH 32 pg (28-32) 08/19/18 04:55 MCHC 34 % (30-34) 08/19/18 04:55 RDW 15.3 % (13.2-15.2) H 08/19/18 04:55 Plt Count 362 K/mm3 (140-440) 08/19/18 04:55 Lymph % (Auto) 18.3 % (13.4-35.0) 08/19/18 04:55 [place] % (Auto) 6.1 % (0.0-7.3) 08/19/18 04:55 Eos % (Auto) 1.3 % (0.0-4.3) 08/19/18 04:55 Baso % (Auto) 0.4 % (0.0-1.8) 08/19/18 04:55 Lymph # 1.8 K/mm3 (1.2-5.4) 08/19/18 04:55 [place] # 0.6 K/mm3 (0.0-0.8) 08/19/18 04:55 Eos # 0.1 K/mm3 (0.0-0.4) 08/19/18 04:55 Baso # 0.0 K/mm3 (0.0-0.1) 08/19/18 04:55 Seg Neutrophils % 73.9 % (40.0-70.0) H 08/19/18 04:55 Seg Neutrophils # 7.5 K/mm3 (1.8-7.7) 08/19/18 04:55 PT 12.2 Sec. (12.2-14.9) 08/18/18 08:11 INR 0.86 (0.87-1.13) L 08/18/18 08:11 APTT 20.8 Sec. (24.2-36.6) L 08/18/18 08:11 D-Dimer 1261.26 ng/mlDDU (0-234) H 08/18/18 08:11 VBG pH 7.458 (7.320-7.420) H 08/18/18 08:11 Sodium 142 mmol/L (137-145) 08/22/18 07:16 Potassium 4.4 mmol/L (3.6-5.0) 08/22/18 07:16 Chloride 106.9 mmol/L (98-107) 08/22/18 07:16 Carbon Dioxide 20 mmol/L (22-30) L 08/22/18 07:16 Anion Gap 20 mmol/L 08/22/18 07:16 BUN 42 mg/dL (7-17) H 08/22/18 07:16 Creatinine 2.2 mg/dL (0.7-1.2) H 08/22/18 07:16 Estimated GFR 21 ml/min 08/22/18 07:16 BUN/Creatinine Ratio 19 % 08/22/18 07:16 Glucose 122 mg/dL (65-100) H 08/22/18 07:16 POC Glucose 116 (70-105) H 08/22/18 06:11 Ketones Quantitative Negative (Negative) 08/18/18 08:11 Lactic Acid 0.70 mmol/L (0.7-2.0) 08/18/18 08:11 Calcium 8.2 mg/dL (8.4-10.2) L 08/22/18 07:16 Phosphorus 4.70 mg/dL (2.5-4.5) H 08/21/18 05:33 Magnesium 2.60 mg/dL (1.7-2.3) H 08/18/18 08:11 Total Bilirubin 0.30 mg/dL (0.1-1.2) 08/18/18 08:11 Direct Bilirubin < 0.2 mg/dL (0-0.2) 08/18/18 08:11 Indirect Bilirubin 0.1 mg/dL 08/18/18 08:11 AST 34 units/L (5-40) 08/18/18 08:11 ALT 23 units/L (7-56) 08/18/18 08:11 Alkaline Phosphatase 131 units/L (35-129) H 08/18/18 08:11 Total Creatine Kinase 80 units/L (30-135) 08/18/18 08:11 CK-MB (CK-2) 2.1 ng/mL (0.0-4.0) 08/18/18 08:11 CK-MB (CK-2) Rel Index 2.6 (0-4) 08/18/18 08:11 Troponin T 0.027 ng/mL (0.00-0.029) 08/18/18 08:11 NT-Pro-B Natriuret Pep 5036 pg/mL (0-900) H 08/18/18 08:11 Total Protein 7.5 g/dL (6.3-8.2) 08/18/18 08:11 Albumin 3.7 g/dL (3.9-5) L 08/18/18 08:11 Albumin/Globulin Ratio 1.0 % 08/18/18 08:11 Urine Color Yellow (Yellow) 08/18/18 15:58 Urine Turbidity Clear (Clear) 08/18/18 15:58 Urine pH 8.0 (5.0-7.0) H 08/18/18 15:58 Ur Specific [place] 1.010 (1.003-1.030) 08/18/18 15:58 Urine Protein >500 mg/dL (Negative) 08/18/18 15:58 Urine Glucose (UA) 50 mg/dL (Negative) 08/18/18 15:58 Urine Ketones Neg mg/dL (Negative) 08/18/18 15:58 Urine Blood Neg (Negative) 08/18/18 15:58 Urine Nitrite Neg (Negative) 08/18/18 15:58 Urine Bilirubin Neg (Negative) 08/18/18 15:58 Urine Urobilinogen < 2.0 mg/dL (<2.0) 08/18/18 15:58 Ur Leukocyte Esterase Neg (Negative) 08/18/18 15:58 Urine WBC (Auto) 1.0 /HPF (0.0-6.0) 08/18/18 15:58 Urine RBC (Auto) 11.0 /HPF (0.0-6.0) 08/18/18 15:58 U Epithel Cells (Auto) 1.0 /HPF (0-13.0) 08/18/18 15:58 Urine Creatinine 70.3 mg/dL (0.1-20.0) H 08/21/18 00:01 Protein/Creatinin Ratio 1.22 08/21/18 00:01 Urine Sodium 55 mmol/L 08/18/18 00:01 Urine Total Protein 86 mg/dL (5-11.8) H 08/21/18 00:01
--- NOTE | 2018-08-22 13:47 | Progress Note ---
Assessment and Plan Pt still with SOB on room air. Cont present management and attempt to wean O2. Optimize BPs - initiate hydralazine. The patient has been seen in conjunction with Dr. Foster who agrees with the assessment and plan of care. - Patient Problems (1) Acute heart failure with preserved ejection fraction Current Visit: Yes Status: Chronic (2) Moderate aortic stenosis Current Visit: Yes Status: Chronic (3) Mild aortic regurgitation Current Visit: Yes Status: Chronic (4) Moderate mitral regurgitation Current Visit: Yes Status: Chronic (5) ARF (acute renal failure) Current Visit: Yes Status: Acute Qualifiers: Acute renal failure type: with acute tubular necrosis Qualified Code(s): N17.0 - Acute kidney failure with tubular necrosis (6) Uncontrolled hypertension Current Visit: Yes Status: Acute (7) Leukocytosis Current Visit: Yes Status: Acute (8) Diabetes Current Visit: Yes Status: Chronic Subjective Date of service: 08/22/18 Principal diagnosis: HF Interval history: pt resting in bed, still with SOB on room air. Objective Last Vital Signs Temp 97.8 F 08/22/18 00:04 Pulse 72 08/22/18 09:57 Resp 18 08/22/18 00:04 BP 175/68 08/22/18 09:57 Pulse Ox 96 08/22/18 00:04 - Physical Examination General: No Apparent Distress HEENT: Positive: PERRL, Normocephaly, Mucus Membranes Moist Neck: Positive: neck supple, trachea midline. Negative: JVD/HJR Cardiac: Positive: Reg Rate and Rhythm, S1/S2, Systolic Murmur Lungs: Positive: Decreased Breath Sounds Neuro: Positive: Grossly Intact Abdomen: Positive: Soft. Negative: Tender Skin: Negative: Rash, Wound Musculoskeletal: No Pain Extremities: Absent: edema - Labs and Meds Comprehensive Metabolic Panel 08/22/18 Range/Units 07:16 Sodium 142 (137-145) mmol/L Potassium 4.4 (3.6-5.0) mmol/L Chloride 106.9 (98-107) mmol/L Carbon Dioxide 20 L (22-30) mmol/L BUN 42 H (7-17) mg/dL Creatinine 2.2 H (0.7-1.2) mg/dL Glucose 122 H (65-100) mg/dL Calcium 8.2 L (8.4-10.2) mg/dL - Imaging and Cardiology EKG: report reviewed, image reviewed Echo: pending, report reviewed - EKG Sinus rhythms and dysrhythmias: sinus rhythm
[2018-08-22] MEDS: APRESOLINE PO SCH ×2 (18:00→21:29)
[2018-08-23] MEDS: APRESOLINE PO SCH ×3 (06:43→21:14)
[2018-08-23 07:51] LABS: Calcium 8.3 mg/dL (8.4-10.2)
[2018-08-23] MEDS: LOVENOX SUB-Q SCH (09:21)
[2018-08-23] MEDS: LOPRESSOR PO SCH ×2 (09:22→21:14)
[2018-08-23] MEDS: CATAPRES PO SCH ×2 (09:22→21:14)
[2018-08-23] MEDS: NORVASC PO SCH (09:22)
[2018-08-23] MEDS: SODIUM CHLORIDE FLUSH SYRINGE 10 ML IV SCH ×2 (09:23→21:15)
[2018-08-23] MEDS: HumuLIN R SUB-Q SCH ×3 (09:23→21:15)
--- NOTE | 2018-08-23 10:55 | Progress Note ---
Assessment and Plan Assessment and plan: Acute hypoxic respiratory failure. Etiology due to diastolic heart failure Supplemental Oxygen and wean as tolerated. Patient may likely need home O2 Acute Diastolic heart failure. EF 55-60%. Cardiology started hydralazine. Acute kidney injury with Cr 2.3 on admission Monitor Creatinine Moderate and moderate MR. Hypertensive urgency. Monitor BP Full code status History Interval history: No new issues overnight. Patient still complains of dyspnea and desaturation on room air. Translation was done by niece over the telephone. Hospitalist Physical - Constitutional Vitals: Temp Pulse Resp BP Pulse Ox 97.4 F L 68 16 173/62 94 08/23/18 08:53 08/23/18 09:22 08/23/18 08:53 08/23/18 09:22 08/23/18 08:53 General appearance: Present: no acute distress - EENT Eyes: Present: PERRL, EOM intact ENT: hearing intact, clear oral mucosa, dentition normal - Neck Neck: Present: supple, normal ROM - Respiratory Respiratory effort: normal Respiratory: bilateral: CTA - Cardiovascular Rhythm: regular Heart Sounds: Present: S1 & S2. Absent: gallop, rub - Extremities Extremities: no ischemia, No edema, Full ROM - Abdominal General gastrointestinal: soft, non-tender, non-distended, normal bowel sounds - Integumentary Integumentary: Present: clear, warm, dry - Neurologic Neurologic: CNII-XII intact, moves all extremities Results - Labs CBC & Chem 7: 08/19/18 04:55 08/23/18 06:13 Labs: Laboratory Last Values WBC 10.1 K/mm3 (4.5-11.0) 08/19/18 04:55 RBC 3.17 M/mm3 (3.65-5.03) L 08/19/18 04:55 Hgb 10.0 gm/dl (10.1-14.3) L 08/19/18 04:55 Hct 29.2 % (30.3-42.9) L 08/19/18 04:55 MCV 92 fl (79-97) 08/19/18 04:55 MCH 32 pg (28-32) 08/19/18 04:55 MCHC 34 % (30-34) 08/19/18 04:55 RDW 15.3 % (13.2-15.2) H 08/19/18 04:55 Plt Count 362 K/mm3 (140-440) 08/19/18 04:55 Lymph % (Auto) 18.3 % (13.4-35.0) 08/19/18 04:55 [place] % (Auto) 6.1 % (0.0-7.3) 08/19/18 04:55 Eos % (Auto) 1.3 % (0.0-4.3) 08/19/18 04:55 Baso % (Auto) 0.4 % (0.0-1.8) 08/19/18 04:55 Lymph # 1.8 K/mm3 (1.2-5.4) 08/19/18 04:55 [place] # 0.6 K/mm3 (0.0-0.8) 08/19/18 04:55 Eos # 0.1 K/mm3 (0.0-0.4) 08/19/18 04:55 Baso # 0.0 K/mm3 (0.0-0.1) 08/19/18 04:55 Seg Neutrophils % 73.9 % (40.0-70.0) H 08/19/18 04:55 Seg Neutrophils # 7.5 K/mm3 (1.8-7.7) 08/19/18 04:55 PT 12.2 Sec. (12.2-14.9) 08/18/18 08:11 INR 0.86 (0.87-1.13) L 08/18/18 08:11 APTT 20.8 Sec. (24.2-36.6) L 08/18/18 08:11 D-Dimer 1261.26 ng/mlDDU (0-234) H 08/18/18 08:11 VBG pH 7.458 (7.320-7.420) H 08/18/18 08:11 Sodium 142 mmol/L (137-145) 08/23/18 06:13 Potassium 4.6 mmol/L (3.6-5.0) 08/23/18 06:13 Chloride 108.8 mmol/L (98-107) H 08/23/18 06:13 Carbon Dioxide 20 mmol/L (22-30) L 08/23/18 06:13 Anion Gap 18 mmol/L 08/23/18 06:13 BUN 39 mg/dL (7-17) H 08/23/18 06:13 Creatinine 2.4 mg/dL (0.7-1.2) H 08/23/18 06:13 Estimated GFR 19 ml/min 08/23/18 06:13 BUN/Creatinine Ratio 16 % 08/23/18 06:13 Glucose 125 mg/dL (65-100) H 08/23/18 06:13 POC Glucose 105 (70-105) 08/23/18 05:43 Ketones Quantitative Negative (Negative) 08/18/18 08:11 Lactic Acid 0.70 mmol/L (0.7-2.0) 08/18/18 08:11 Calcium 8.3 mg/dL (8.4-10.2) L 08/23/18 06:13 Phosphorus 4.70 mg/dL (2.5-4.5) H 08/21/18 05:33 Magnesium 2.60 mg/dL (1.7-2.3) H 08/18/18 08:11 Total Bilirubin 0.30 mg/dL (0.1-1.2) 08/18/18 08:11 Direct Bilirubin < 0.2 mg/dL (0-0.2) 08/18/18 08:11 Indirect Bilirubin 0.1 mg/dL 08/18/18 08:11 AST 34 units/L (5-40) 08/18/18 08:11 ALT 23 units/L (7-56) 08/18/18 08:11 Alkaline Phosphatase 131 units/L (35-129) H 08/18/18 08:11 Total Creatine Kinase 80 units/L (30-135) 08/18/18 08:11 CK-MB (CK-2) 2.1 ng/mL (0.0-4.0) 08/18/18 08:11 CK-MB (CK-2) Rel Index 2.6 (0-4) 08/18/18 08:11 Troponin T 0.027 ng/mL (0.00-0.029) 08/18/18 08:11 NT-Pro-B Natriuret Pep 5036 pg/mL (0-900) H 08/18/18 08:11 Total Protein 7.5 g/dL (6.3-8.2) 08/18/18 08:11 Albumin 3.7 g/dL (3.9-5) L 08/18/18 08:11 Albumin/Globulin Ratio 1.0 % 08/18/18 08:11 Urine Color Yellow (Yellow) 08/18/18 15:58 Urine Turbidity Clear (Clear) 08/18/18 15:58 Urine pH 8.0 (5.0-7.0) H 08/18/18 15:58 Ur Specific [place] 1.010 (1.003-1.030) 08/18/18 15:58 Urine Protein >500 mg/dL (Negative) 08/18/18 15:58 Urine Glucose (UA) 50 mg/dL (Negative) 08/18/18 15:58 Urine Ketones Neg mg/dL (Negative) 08/18/18 15:58 Urine Blood Neg (Negative) 08/18/18 15:58 Urine Nitrite Neg (Negative) 08/18/18 15:58 Urine Bilirubin Neg (Negative) 08/18/18 15:58 Urine Urobilinogen < 2.0 mg/dL (<2.0) 08/18/18 15:58 Ur Leukocyte Esterase Neg (Negative) 08/18/18 15:58 Urine WBC (Auto) 1.0 /HPF (0.0-6.0) 08/18/18 15:58 Urine RBC (Auto) 11.0 /HPF (0.0-6.0) 08/18/18 15:58 U Epithel Cells (Auto) 1.0 /HPF (0-13.0) 08/18/18 15:58 Urine Creatinine 70.3 mg/dL (0.1-20.0) H 08/21/18 00:01 Protein/Creatinin Ratio 1.22 08/21/18 00:01 Urine Sodium 55 mmol/L 08/18/18 00:01 Urine Total Protein 86 mg/dL (5-11.8) H 08/21/18 00:01
--- NOTE | 2018-08-23 12:04 | XRay Report ---
CHEST 2 VIEWS INDICATION: Pulmonary edema. COMPARISON: 08/18/2018 FINDINGS: Frontal and lateral chest radiographs suggest mild increased possibly congestive bronchovascular prominence/infiltration, left more than right. Increased hazy opacification toward the lung bases as well, left more than right with obscured hemidiaphragms. Stable cardiomediastinal silhouette/mild cardiomegaly. Aortic knob calcifications. EKG leads. Pleural effusions and increased fluid/thickening along the major fissures also noted on the lateral view. Demineralized bones with multilevel spinal degenerative changes. CONCLUSION: Radiographic worsening/increased pulmonary vascular congestion/opacities with pleural effusions and few other findings, as described. Please correlate. Thank you for the opportunity to participate in this patient's care.
--- NOTE | 2018-08-23 12:42 | Progress Note ---
Assessment and Plan Cont present cardiac management. Pt still with SOB on room air. Cont present management and attempt to wean O2 per primary. The patient has been seen in conjunction with Dr. Foster who agrees with the assessment and plan of care. - Patient Problems (1) Acute heart failure with preserved ejection fraction Current Visit: Yes Status: Chronic (2) Moderate aortic stenosis Current Visit: Yes Status: Chronic (3) Mild aortic regurgitation Current Visit: Yes Status: Chronic (4) Moderate mitral regurgitation Current Visit: Yes Status: Chronic (5) ARF (acute renal failure) Current Visit: Yes Status: Acute Qualifiers: Acute renal failure type: with acute tubular necrosis Qualified Code(s): N17.0 - Acute kidney failure with tubular necrosis (6) Uncontrolled hypertension Current Visit: Yes Status: Acute (7) Leukocytosis Current Visit: Yes Status: Acute (8) Diabetes Current Visit: Yes Status: Chronic Subjective Date of service: 08/23/18 Principal diagnosis: HF Interval history: pt resting in bed, still with SOB on room air. Objective Last Vital Signs Temp 97.4 F L 08/23/18 08:53 Pulse 68 08/23/18 09:22 Resp 16 08/23/18 08:53 BP 173/62 08/23/18 09:22 Pulse Ox 94 08/23/18 08:53 - Physical Examination General: No Apparent Distress HEENT: Positive: PERRL, Normocephaly, Mucus Membranes Moist Neck: Positive: neck supple, trachea midline. Negative: JVD/HJR Cardiac: Positive: Reg Rate and Rhythm, S1/S2, Systolic Murmur Lungs: Positive: Decreased Breath Sounds Neuro: Positive: Grossly Intact Abdomen: Positive: Soft. Negative: Tender Skin: Negative: Rash, Wound Musculoskeletal: No Pain Extremities: Absent: edema - Labs and Meds Comprehensive Metabolic Panel 08/23/18 Range/Units 06:13 Sodium 142 (137-145) mmol/L Potassium 4.6 (3.6-5.0) mmol/L Chloride 108.8 H (98-107) mmol/L Carbon Dioxide 20 L (22-30) mmol/L BUN 39 H (7-17) mg/dL Creatinine 2.4 H (0.7-1.2) mg/dL Glucose 125 H (65-100) mg/dL Calcium 8.3 L (8.4-10.2) mg/dL - Imaging and Cardiology EKG: report reviewed, image reviewed Echo: pending, report reviewed - EKG Sinus rhythms and dysrhythmias: sinus rhythm
--- NOTE | 2018-08-23 14:13 | Progress Note ---
Assessment and Plan 1. Acute kidney injury: [place] in the setting of CHF exacerbation. Suspect Cardio-renal syndrome. Renal US was negative for hydronephrosis. Monitor renal function. 2. FEN: Volume overload, improved. 3. Uncontrolled HTN: Monitor. 4. Acute CHF: Followed by Cards. 5. DM-2. Subjective Date of service: 08/23/18 Principal diagnosis: HF Interval history: Patient was seen and examined at the bedside. History obtained through the spanish interpreter/translator. Objective - Vital Signs Vital signs: Vital Signs - 12hr 08/23/18 08/23/18 08/23/18 05:39 06:43 08:53 Temperature 98.4 F 97.4 F L Pulse Rate 67 68 73 Respiratory 18 16 Rate Blood Pressure 161/50 173/62 161/61 O2 Sat by Pulse 97 94 Oximetry 08/23/18 09:22 Temperature Pulse Rate 68 Respiratory Rate Blood Pressure 173/62 O2 Sat by Pulse Oximetry - General Appearance General appearance: well-developed, well-nourished, appears stated age, other (not in distress) EENT: ATNC, PERRL Neck: supple Respiratory: Present: Clear to Ascultation Cardiology: regular, S1S2, no murmurs Gastrointestinal: normoactive bowel sounds, no tenderness, no distended Integumentary: no rash, warm and dry Neurologic: other (able to move all 4 extremities) Musculoskeletal: other (no edema) - Lab 08/19/18 04:55 08/23/18 06:13 Most recent lab results Calcium 8.3 mg/dL (8.4-10.2) L 08/23/18 06:13 Phosphorus 4.70 mg/dL (2.5-4.5) H 08/21/18 05:33 Magnesium 2.60 mg/dL (1.7-2.3) H 08/18/18 08:11 Urine Creatinine 70.3 mg/dL (0.1-20.0) H 08/21/18 00:01 Urine Sodium 55 mmol/L 08/18/18 00:01 Urine Total Protein 86 mg/dL (5-11.8) H 08/21/18 00:01 Medications & Allergies - Medications Allergies/Adverse Reactions: Allergies No Known Allergies Allergy (Unverified 11/09/13 09:52) Home Medications: Home Medications Medication Instructions Recorded Confirmed Last Taken Type amLODIPine [Norvasc] 10 mg PO DAILY 12/28/17 08/18/18 Unknown History cloNIDine [Catapres] 0.1 mg PO BID 12/28/17 08/18/18 Unknown History glipiZIDE [Glucotrol] 10 mg PO BID 12/28/17 08/18/18 Unknown History Furosemide [Lasix] 20 mg PO BID 08/18/18 08/18/18 Unknown History Active Medications: Generic Name Dose Route Start Last Admin Trade Name Freq PRN Reason Stop Dose Admin Acetaminophen 650 mg 08/18/18 13:10 08/19/18 20:01 Tylenol PO 650 mg Q4H PRN Administration Pain MILD(1-3)/Fever >100.5/MEHTA Amlodipine Besylate 10 mg 08/18/18 14:00 08/23/18 09:22 Norvasc PO 10 mg DAILY ANAHY Administration Clonidine HCl 0.1 mg 08/18/18 14:00 08/23/18 09:22 Catapres PO 0.1 mg BID ANAHY Administration Enoxaparin Sodium 30 mg 08/19/18 10:00 08/23/18 09:21 Lovenox SUB-Q 30 mg QDAY ANAHY Administration Hydralazine HCl 50 mg 08/22/18 14:00 08/23/18 13:00 Apresoline PO 50 mg Q8HR ANAHY Administration Insulin Human Regular 0 units 08/19/18 22:37 08/23/18 12:55 Humulin R SUB-Q 3 units ACHS ANAHY Administration Protocol Metoprolol Tartrate 75 mg 08/21/18 15:56 08/23/18 09:22 Lopressor PO 75 mg BID ANAHY Administration Morphine Sulfate 2 mg 08/18/18 13:10 Morphine IV Q4H PRN Pain, Moderate (4-6) Ondansetron HCl 4 mg 08/18/18 13:10 Zofran IV Q8H PRN Nausea And Vomiting Sodium Chloride 10 ml 08/18/18 22:00 08/23/18 09:23 Sodium Chloride Flush Syringe 10 Ml IV 10 ml BID ANAHY Administration Sodium Chloride 10 ml 08/18/18 13:10 Sodium Chloride Flush Syringe 10 Ml IV PRN PRN LINE FLUSH
[2018-08-24] MEDS: APRESOLINE PO SCH (05:36)
[2018-08-24 05:56] LABS: Calcium 7.8 mg/dL (8.4-10.2)
[2018-08-24 08:32] VITALS: BP 160/58
--- NOTE | 2018-08-24 09:02 | Discharge Summary ---
Providers - Providers Date of Admission: 08/18/18 09:29 Date of discharge: 08/24/18 Attending physician: CATHRYN SANDERS 08/18/18 Consult to Case Management [CONS] Routine Services Needed at Discharge: Other Notified:: case management Comment:: delmis planning 08/18/18 09:02 Consult to Physician [CONS] Urgent Comment: DR Mildred BROWNING AWARE OF PT Consulting Provider: BONNY BROWNING Physician Instructions: Reason For Exam: loud systolic M, CHF 08/18/18 09:32 Consult to Physician [CONS] Urgent Comment: [facility] OFFICE NOTIFIED 954 Consulting Provider: ENZO VELAZQUEZ Physician Instructions: Reason For Exam: worsening renal function stage IIIB diabetes 08/21/18 11:02 Physical Therapy Evaluation and Treat [CONS] Routine Comment: Reason For Exam: Gen weakness Primary care physician: MICROFICHE CAMERA OPERATOR Hospitalization Reason for admission: arf, dyspnes Condition: Stable Hospital course: The patient is an 83 YO female with medical history significant for Obesity, HTN, DM type 2 and 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 The patient was noted to have associated symptoms including orthopnea. CXR c/w cardiomegaly and HF. Pulmonary perfusion imaging was low probability for PE. Labs are significant for creatinine 2.3, leukocytosis and elevated BNP. The patient was admitted with diagnosis of acute heart failure, acute kidney injury, accelerated hypertension and acute hypoxemic respiratory failure. The patient was seen by cardiology and nephrology in consultation. Cardiology reported etiology of the heart failure was diastolic with EF of 55-60%. The patient was treated with appropriate medications of beta starla and hydralazine, no ARB/JORDANA inhibitor agents given the renal failure. The patient has slow but significant improvement throughout hospitalization. Also of note on the echocardiogram patient was noted to have moderate aortic stenosis and moderate mitral regurgitation. Patient remained hypoxic despite optimized medical heart failure therapy. Therefore, home O2 was arranged. Nephrology attributed renal failure due to acute kidney injury in the setting of CHF exacerbation. Also suspect cardiorenal syndrome. Renal ultrasound was negative for hydronephrosis. Patient should follow-up with cardiology and nephrology as an outpatient. Dedicated discharge time 35 minutes. Disposition: DC- TO HOME OR SELFCARE Time spent for discharge: 35 - Discharge Diagnoses (1) ARF (acute renal failure) Status: Acute Qualifiers: Acute renal failure type: with acute tubular necrosis Qualified Code(s): N17.0 - Acute kidney failure with tubular necrosis (2) Acute heart failure Status: Acute (3) Acute kidney injury Status: Acute (4) Cardiomyopathy Status: Acute Qualifiers: Cardiomyopathy type: unspecified Qualified Code(s): I42.9 - Cardiomyopathy, unspecified (5) Poorly-controlled hypertension Status: Acute (6) Diabetes Status: Chronic (7) Moderate aortic stenosis Status: Chronic (8) Moderate mitral regurgitation Status: Chronic (9) Accelerated hypertension Status: Acute Core Measure Documentation - Palliative Care Palliative Care/ Comfort Measures: Not Applicable - Core Measures Any of the following diagnoses?: none Exam - Constitutional Vitals: Temp Pulse Resp BP Pulse Ox 98.2 F 70 18 160/58 95 08/24/18 08:29 08/24/18 08:29 08/24/18 08:29 08/24/18 08:29 08/24/18 08:29 General appearance: Present: no acute distress, well-nourished - EENT Eyes: Present: PERRL ENT: hearing intact, clear oral mucosa - Neck Neck: Present: supple, normal ROM - Respiratory Respiratory effort: normal Respiratory: bilateral: CTA - Cardiovascular Heart Sounds: Present: S1 & S2. Absent: rub, click - Extremities Extremities: pulses symmetrical, No edema Peripheral Pulses: within normal limits - Abdominal General gastrointestinal: Present: soft, non-tender, non-distended, normal bowel sounds Female genitourinary: Present: normal - Integumentary Integumentary: Present: clear, warm, dry - Musculoskeletal Musculoskeletal: gait normal, strength equal bilaterally - Psychiatric Psychiatric: appropriate mood/affect, intact judgment & insight - Neurologic Neurologic: CNII-XII intact, moves all extremities Plan Activity: advance as tolerated Weight Bearing Status: Weight Bear as Tolerated Diet: low fat, low cholesterol, low salt, diabetic Special Instructions: restrict fluid intake to (1.2 liters) Follow up with: PRIMARY CAREMD [Primary Care Provider] - 3-5 Days SARAH SKY MD [Staff Physician] - 7 Days GEOVANNA ESCUDERO NP [Advanced Practice Nurse] - 7 Days Prescriptions: amLODIPine [Norvasc] 10 mg PO DAILY #30 tablet cloNIDine [Catapres] 0.1 mg PO BID #60 tablet Furosemide [Lasix] 20 mg PO BID #60 tablet glipiZIDE [Glucotrol] 10 mg PO BID #60 tablet hydrALAZINE [Apresoline TAB] 50 mg PO Q8HR #90 tablet Metoprolol [Lopressor TAB] 75 mg PO BID #60 tablet
--- NOTE | 2018-08-24 09:44 | Progress Note ---
Assessment and Plan 1. Acute kidney injury: [place] in the setting of CHF exacerbation. Suspect Cardio-renal syndrome. Renal US was negative for hydronephrosis. Monitor renal function. 2. FEN: Volume overload, improved. 3. Uncontrolled HTN: Monitor. 4. Acute CHF: Followed by Cards. 5. DM-2. Patient need to be closely followed in the office. Advised to follow with me in 1 week. Office info was given. Subjective Date of service: 08/24/18 Principal diagnosis: HF Interval history: Patient was seen and examined at the bedside. History obtained through the pressfitter over the phone. Objective - Vital Signs Vital signs: Vital Signs - 12hr 08/23/18 08/24/18 08/24/18 23:25 03:00 04:40 Temperature 99.1 F 98.9 F Pulse Rate 73 69 Respiratory 17 17 Rate Blood Pressure 156/57 166/58 O2 Sat by Pulse 96 Oximetry 08/24/18 08:29 Temperature 98.2 F Pulse Rate 70 Respiratory 18 Rate Blood Pressure 160/58 O2 Sat by Pulse 95 Oximetry - General Appearance General appearance: well-developed, well-nourished, appears stated age, obese, other (not in distress) EENT: ATNC, PERRL, mucous membranes moist Neck: supple Respiratory: Present: Clear to Ascultation Cardiology: regular, S1S2, no murmurs Gastrointestinal: normoactive bowel sounds, no tenderness, no distended Integumentary: no rash, warm and dry Neurologic: other (able to move all 4 extremities) Musculoskeletal: other (no edema) - Lab 08/19/18 04:55 08/24/18 05:14 Most recent lab results Calcium 7.8 mg/dL (8.4-10.2) L 08/24/18 05:14 Phosphorus 4.70 mg/dL (2.5-4.5) H 08/21/18 05:33 Magnesium 2.60 mg/dL (1.7-2.3) H 08/18/18 08:11 Urine Creatinine 70.3 mg/dL (0.1-20.0) H 08/21/18 00:01 Urine Sodium 55 mmol/L 08/18/18 00:01 Urine Total Protein 86 mg/dL (5-11.8) H 08/21/18 00:01 Medications & Allergies - Medications Allergies/Adverse Reactions: Allergies No Known Allergies Allergy (Unverified 11/09/13 09:52) Home Medications: Home Medications Medication Instructions Recorded Confirmed Last Taken Type Furosemide [Lasix] 20 mg PO BID #60 tablet 08/24/18 Unknown Rx Metoprolol [Lopressor TAB] 75 mg PO BID #60 tablet 08/24/18 Unknown Rx amLODIPine [Norvasc] 10 mg PO DAILY #30 tablet 08/24/18 Unknown Rx cloNIDine [Catapres] 0.1 mg PO BID #60 tablet 08/24/18 Unknown Rx glipiZIDE [Glucotrol] 10 mg PO BID #60 tablet 08/24/18 Unknown Rx hydrALAZINE [Apresoline TAB] 50 mg PO Q8HR #90 tablet 08/24/18 Unknown Rx Active Medications: Generic Name Dose Route Start Last Admin Trade Name Freq PRN Reason Stop Dose Admin Acetaminophen 650 mg 08/18/18 13:10 08/19/18 20:01 Tylenol PO 650 mg Q4H PRN Administration Pain MILD(1-3)/Fever >100.5/MEHTA Amlodipine Besylate 10 mg 08/18/18 14:00 08/23/18 09:22 Norvasc PO 10 mg DAILY ANAHY Administration Clonidine HCl 0.1 mg 08/18/18 14:00 08/23/18 21:14 Catapres PO 0.1 mg BID ANAHY Administration Enoxaparin Sodium 30 mg 08/19/18 10:00 08/23/18 09:21 Lovenox SUB-Q 30 mg QDAY ANAHY Administration Hydralazine HCl 50 mg 08/22/18 14:00 08/24/18 05:36 Apresoline PO 50 mg Q8HR ANAHY Administration Insulin Human Regular 0 units 08/19/18 22:37 08/23/18 21:15 Humulin R SUB-Q 2 units ACHS ANAHY Administration Protocol Metoprolol Tartrate 75 mg 08/21/18 15:56 08/23/18 21:14 Lopressor PO 75 mg BID ANAHY Administration Morphine Sulfate 2 mg 08/18/18 13:10 Morphine IV Q4H PRN Pain, Moderate (4-6) Ondansetron HCl 4 mg 08/18/18 13:10 Zofran IV Q8H PRN Nausea And Vomiting Sodium Chloride 10 ml 08/18/18 22:00 08/23/18 21:15 Sodium Chloride Flush Syringe 10 Ml IV 10 ml BID ANAHY Administration Sodium Chloride 10 ml 08/18/18 13:10 Sodium Chloride Flush Syringe 10 Ml IV PRN PRN LINE FLUSH
[2018-08-24] MEDS: LOVENOX SUB-Q SCH (10:27)
[2018-08-24] MEDS: LOPRESSOR PO SCH (10:27)
[2018-08-24] MEDS: HumuLIN R SUB-Q SCH ×2 (10:27→11:09)
[2018-08-24] MEDS: NORVASC PO SCH (10:27)
[2018-08-24] MEDS: CATAPRES PO SCH (10:27)
--- NOTE | 2018-08-24 11:33 | Progress Note ---
Assessment and Plan Pt for discharge home today. Currently stable cardiac status. Cont present cardiac management. No ACEI/ARB in setting of renal insufficiency. Recommend pt follow up in our office with Dr. Mari Meyers within 3-5 days of hospital discharge ([phone]). The patient has been seen in conjunction with Dr. Foster who agrees with the assessment and plan of care. - Patient Problems (1) Acute heart failure with preserved ejection fraction Current Visit: Yes Status: Chronic (2) Moderate aortic stenosis Current Visit: Yes Status: Chronic (3) Mild aortic regurgitation Current Visit: Yes Status: Chronic (4) Moderate mitral regurgitation Current Visit: Yes Status: Chronic (5) ARF (acute renal failure) Current Visit: Yes Status: Acute Qualifiers: Acute renal failure type: with acute tubular necrosis Qualified Code(s): N17.0 - Acute kidney failure with tubular necrosis (6) Uncontrolled hypertension Current Visit: Yes Status: Acute (7) Leukocytosis Current Visit: Yes Status: Acute (8) Diabetes Current Visit: Yes Status: Chronic Subjective Date of service: 08/24/18 Principal diagnosis: HF Interval history: pt resting in bed, no apparent distress. Objective Last Vital Signs Temp 98.2 F 08/24/18 08:29 Pulse 70 08/24/18 08:29 Resp 18 08/24/18 08:29 BP 160/58 08/24/18 08:29 Pulse Ox 95 08/24/18 08:29 - Physical Examination General: No Apparent Distress HEENT: Positive: PERRL, Normocephaly, Mucus Membranes Moist Neck: Positive: neck supple, trachea midline. Negative: JVD/HJR Cardiac: Positive: Reg Rate and Rhythm, S1/S2, Systolic Murmur Lungs: Positive: Decreased Breath Sounds Neuro: Positive: Grossly Intact Abdomen: Positive: Soft. Negative: Tender Skin: Negative: Rash, Wound Musculoskeletal: No Pain Extremities: Absent: edema - Labs and Meds Comprehensive Metabolic Panel 08/24/18 Range/Units 05:14 Sodium 140 (137-145) mmol/L Potassium 4.6 (3.6-5.0) mmol/L Chloride 107.7 H (98-107) mmol/L Carbon Dioxide 21 L (22-30) mmol/L BUN 40 H (7-17) mg/dL Creatinine 2.5 H (0.7-1.2) mg/dL Glucose 138 H (65-100) mg/dL Calcium 7.8 L (8.4-10.2) mg/dL - Imaging and Cardiology EKG: report reviewed, image reviewed Echo: pending, report reviewed - EKG Sinus rhythms and dysrhythmias: sinus rhythm
== END 2018-08-24 13:02 | disposition home or self-care (01) | DRG 682 ==
LOC: ED 07:32 → 4A 09:29
PROVIDERS: ADMIT Internal Medicine; ATTEND Hospitalist
DX: N17.0 Acute kidney failure with tubular necrosis (principal); J96.00 Acute respiratory failure, unspecified whether with hypoxia or hypercapnia; I50.31 Acute diastolic (congestive) heart failure; I13.0 Hypertensive heart and chronic kidney disease with heart failure and stage 1 through stage 4 chronic kidney disease, or unspecified chronic kidney disease; J81.1 Chronic pulmonary edema; I42.9 Cardiomyopathy, unspecified; N18.3 Chronic kidney disease, stage 3 (moderate); I16.0 Hypertensive urgency; D72.829 Elevated white blood cell count, unspecified; E11.22 Type 2 diabetes mellitus with diabetic chronic kidney disease; Z79.84 Long term (current) use of oral hypoglycemic drugs; M19.90 Unspecified osteoarthritis, unspecified site; E66.9 Obesity, unspecified; Z68.34 Body mass index [BMI] 34.0-34.9, adult; I08.0 Rheumatic disorders of both mitral and aortic valves
CPT/HCPCS: 36415; 70450; 71045; 71046; 76770; 78582; 80048; 80076; 81001; 82010; 82140; 82550; 82553; 82570; 82805; 82962; 83735; 83880; 84100; 84156; 84300; 84484; 85025; 85379; 85610; 85730; 87040; 87086; 93005; 93010; 93306; 94640; 96374; 99285; G0378; A9540; A9558; J1650; J1815; J1940

== ENCOUNTER 2018-08-26 19:49 | Inpatient (IN) | payer MEDICARE ==
[2018-08-26] MEDS ORDERED: SOLU-Medrol IV ONE (20:28)
[2018-08-26] MEDS ORDERED: ATROVENT IH ONE (20:28)
[2018-08-26] MEDS ORDERED: PROVENTIL IH ONE (20:28)
--- NOTE | 2018-08-26 20:42 | Emergency Department Report ---
HPI - General Chief Complaint: Dyspnea/Respdistress Time Seen by Provider: 08/26/18 20:14 - HPI HPI: 83-year-old female presents to the emergency department by EMS from home with complaint of shortness of breath. Patient has a past medical history of hypertension, diabetes, CKD and CHF. She was just recently admitted to this hospital on 08/18/18 and discharged 2 days ago for similar symptoms. Patient does not speak [place] but her granddaughter is here translating. Patient's primary care physician is Dr. Moore. She was seen in the hospital by [facility] cardiology. She received some breathing treatments in route. She denies any fever, chest pain or any excessive lower extremity swelling. ED Past Medical Hx - Past Medical History Previous Medical History?: Yes Hx Hypertension: Yes Hx Diabetes: Yes (07/04/2014) Hx Deep Vein Thrombosis: Yes Hx Arthritis: Yes Hx HIV: No Additional medical history: Heart failure 08/2018, Pulmonary edema 08/2018 - Surgical History Past Surgical History?: No - Social History Smoking Status: Never Smoker Substance Use Type: None - Medications Home Medications: Home Medications Medication Instructions Recorded Confirmed Last Taken Type Furosemide [Lasix] 20 mg PO BID #60 tablet 08/24/18 08/26/18 Unknown Rx Metoprolol [Lopressor TAB] 75 mg PO BID #60 tablet 08/24/18 08/26/18 Unknown Rx amLODIPine [Norvasc] 10 mg PO DAILY #30 tablet 08/24/18 08/26/18 Unknown Rx cloNIDine [Catapres] 0.1 mg PO BID #60 tablet 08/24/18 08/26/18 Unknown Rx glipiZIDE [Glucotrol] 10 mg PO BID #60 tablet 08/24/18 08/26/18 Unknown Rx hydrALAZINE [Apresoline TAB] 50 mg PO Q8HR #90 tablet 08/24/18 08/26/18 Unknown Rx ED Review of Systems ROS: Stated complaint: SOB/LOW SUGAR Other details as noted in HPI Comment: All other systems reviewed and negative Constitutional: denies: chills, fever Eyes: denies: eye pain, vision change ENT: denies: ear pain, throat pain Respiratory: shortness of breath, wheezing Cardiovascular: denies: chest pain, palpitations Gastrointestinal: denies: abdominal pain, vomiting Genitourinary: denies: urgency, dysuria Musculoskeletal: denies: back pain, arthralgia Skin: denies: rash, lesions Neurological: denies: headache, weakness Physical Exam - Physical Exam Vital Signs: Vital Signs 08/26/18 08/26/18 19:51 19:59 Temperature 97.8 F Pulse Rate 77 Respiratory 27 H Rate Blood Pressure 186/54 O2 Sat by Pulse 100 100 Oximetry Physical Exam: CGENERAL: The patient is well-developed well-nourished. HEENT: Normocephalic. Atraumatic. Patient has moist mucous membranes. EYES: Extraocular motions are intact. Pupils are equal and reactive to light bilaterally. NECK: Supple. Trachea is midline. CHEST/LUNGS: Coarse breath sounds. There is mild wheezing throughout the chest. Tachypnea but no accessory muscle use. There is no respiratory distress noted. HEART/CARDIOVASCULAR: Regular. There is no tachycardia. There is no obvious murmur. ABDOMEN: Abdomen is soft, nontender. Patient has normal bowel sounds. There is no abdominal distention. SKIN: Mild pitting swelling to the bilateral lower extremities. NEURO: The patient is awake, alert, and cooperative. The patient has no focal neurologic deficits. MUSCULOSKELETAL: There is no tenderness or deformity. There is no evidence of acute injury. ED Course Vital Signs 08/26/18 08/26/18 19:51 19:59 Temperature 97.8 F Pulse Rate 77 Respiratory 27 H Rate Blood Pressure 186/54 O2 Sat by Pulse 100 100 Oximetry ED Medical Decision Making - Lab Data Result diagrams: 08/26/18 21:13 08/26/18 21:13 - EKG Data -: EKG Interpreted by Me EKG shows normal: sinus rhythm, axis, intervals, QRS complexes, ST-T waves Rate: normal - EKG Data When compared to previous EKG there are: no significant change Interpretation: normal EKG, unchanged when compared t (08/21/18) - Radiology Data Radiology results: image reviewed interpreted by me: Chest x-ray shows some cardiomegaly and pulmonary vascular congestion. No overt pleural effusions. No obvious pneumonia. - Medical Decision Making Patient presents to the emergency department with complaint of shortness of breath. Family says that it has been worse for her over the past few days then one brought her in last week for her admission. Patient was given breathing treatments, Lasix. She presents with severely elevated blood pressure and was given some oral hydralazine and the Lasix for diuresis. We'll give her a dose of metoprolol. Patient has some chronic kidney disease. BNP of 3800. She still continues to have some shortness of breath after the nebulizer treatments and diuresis. For this reason she will be admitted to the hospital for further evaluation and treatment was accepted for admission by the hospitalist, Dr. Lopez. - Differential Diagnosis CHF, Pneumonia, Bronchitis, COPD Critical Care Time: No Critical care attestation.: If time is entered above; I have spent that time in minutes in the direct care of this critically ill patient, excluding procedure time. ED Disposition Clinical Impression: Hypertensive urgency Dyspnea Qualifiers: Dyspnea type: shortness of breath Qualified Code(s): R06.02 - Shortness of breath CHF exacerbation Qualifiers: Heart failure type: unspecified Qualified Code(s): I50.9 - Heart failure, unspecified Disposition: 09 OP ADMIT IP TO THIS HOSP Is pt being admited?: Yes Condition: Fair Referrals: PRIMARY CARE, [Primary Care Provider] - 3-5 Days Time of Disposition: 22:55
[2018-08-26] MEDS ORDERED: APRESOLINE IV ONE (21:27)
--- NOTE | 2018-08-26 21:38 | XRay Report ---
FINAL REPORT EXAM: XR CHEST 1V AP HISTORY: Dyspnea TECHNIQUE: Chest single AP PRIORS: None. FINDINGS: Linear atelectasis or scarring noted at the left midlung No confluent pulmonary infiltrate identified. No pleural fluid collection seen. Cardiac and mediastin al contours are within normal range for technique. Pulmonary vasculature is unremarkable. IMPRESSION: Mild scarring or atelectasis within the left midlung. No acute pulmonary findings
[2018-08-26 21:43] LABS: Basophils # (Auto) 0.2 K/mm3 (0.0-0.1); Eosinophils # (Auto) 0.1 K/mm3 (0.0-0.4); Eosinophils % (Auto) 0.6 % (0.0-4.3); Hematocrit 37.8 % (30.3-42.9); Hemoglobin 12.4 gm/dl (10.1-14.3); Lymphocytes # (Auto) 3.6 K/mm3 (1.2-5.4); Lymphocytes % (Auto) 17.7 % (13.4-35.0); Mean Corpuscular HGB Conc 33 % (30-34); Mean Corpuscular Volume 95 fl (79-97); Monocytes # (Auto) 0.9 K/mm3 (0.0-0.8); Monocytes % (Auto) 4.4 % (0.0-7.3); Red Blood Count 3.99 M/mm3 (3.65-5.03); Red Cell Distribution Width 16.1 % (13.2-15.2)
[2018-08-26 21:44] LABS: Platelet Count 415 K/mm3 (140-440)
[2018-08-26] MEDS ORDERED: APRESOLINE ONE (22:15)
[2018-08-26] MEDS ORDERED: APRESOLINE PO ONE (22:16)
[2018-08-26 22:18] LABS: Albumin 2.9 g/dL (3.9-5); Calcium 8.3 mg/dL (8.4-10.2)
[2018-08-26] MEDS ORDERED: LASIX IV ONE (22:18)
[2018-08-26] MEDS ORDERED: D50W (25GM) Syringe IV ONE (22:36)
[2018-08-26] MEDS ORDERED: D50W (25GM) Syringe IV PRN (23:42)
[2018-08-26] MEDS ORDERED: ZOFRAN IV PRN (23:46)
[2018-08-26] MEDS ORDERED: TYLENOL PO PRN (23:46)
[2018-08-27] MEDS ORDERED: NITRO-BID 2% TP ONE (00:06)
[2018-08-27] MEDS: NITRO-BID 2% TP SCH ×3 (00:07→20:20)
[2018-08-27 03:17] LABS: Creatine Kinase MB 2.1 ng/mL (0.0-4.0)
--- NOTE | 2018-08-27 05:26 | History and Physical Report ---
CHIEF COMPLAINT: Difficulty in breathing. HISTORY OF PRESENT ILLNESS: The patient is an 83-year-old female who was discharged from this hospital 2 days prior to presentation during which she was admitted for CHF exacerbation and chronic kidney disease and was recently came back with the same complaint of shortness of breath. There was no history of chest pain and no history of fever, nausea, or vomiting. PAST MEDICAL HISTORY: Pertinent for hypertension, diabetes mellitus, deep vein thrombosis, arthritis, heart failure. PAST SURGICAL HISTORY: Unremarkable. FAMILY HISTORY: Family history is noncontributory. SOCIAL HISTORY: The patient lives with family. Does not smoke, does not drink alcohol, and does not use illicit drugs. MEDICATIONS: The patient is on Lasix 20 mg by mouth twice daily, Lopressor 75 mg by mouth twice daily, Norvasc 10 mg by mouth daily, Catapres 0.1 mg by mouth twice daily, Glucotrol 10 mg by mouth twice daily, hydralazine 50 mg by mouth every 8 hours. ALLERGIES: There are no known drug allergies. REVIEW OF SYSTEMS: CONSTITUTIONAL: There is no fever, no chills, no diaphoresis. HEENT: There is no headache or sore throat. CARDIOVASCULAR SYSTEM: There is no chest pain or orthopnea. RESPIRATORY SYSTEM: Shortness of breath is present. There is no cough. GASTROINTESTINAL SYSTEM: There is no nausea, no vomiting. No abdominal pain, diarrhea, or constipation. NEUROLOGICAL SYSTEM: Weakness present. No numbness, no change in mental status. MUSCULOSKELETAL SYSTEM: There is no joint pain or swelling. DERMATOLOGICAL SYSTEM: There is no skin rash or itching. GENITOURINARY SYSTEM: There is no dysuria, hematuria, or flank pain. Rest of system review is normal. PHYSICAL EXAMINATION: GENERAL: At the time of exam, the patient was found to be alert, oriented x 3 and in mild distress, due to shortness of breath. VITAL SIGNS: At the initial time of presentation show a temperature of 97.8 degree Fahrenheit, pulse of 77, respirations 27, blood pressure 186/54, O2 sat of 100% on room air. HEENT: Shows pupils to be equal, round, reactive to light and accommodating. Extraocular muscles are intact. NECK: Neck is supple with no JVD or carotid bruit. CARDIOVASCULAR SYSTEM: Shows first and second heart sounds with no gallops or murmur. RESPIRATORY SYSTEM: Shows good air entry on both sides of the lungs with bibasilar rales. GASTROINTESTINAL SYSTEM: Shows abdomen to be full, soft, nontender with no organomegaly or rigidity. NEUROLOGICAL: Neuro exam shows no focal deficit. MUSCULOSKELETAL SYSTEM: Shows no joint swelling or tenderness. DERMATOLOGICAL SYSTEM: Shows no skin rash. GENITOURINARY SYSTEM: Showing no costovertebral angle tenderness. PERTINENT LABORATORY DATA AND IMAGING STUDIES: The patient had chest x-ray done that shows mild scarring, atelectasis within the left mid lung field with no acute pulmonary findings. The patient's lab results show elevated white count of 20,000 with normal hemoglobin and normal hematocrit with CBC differential showing elevated segmented neutrophil of 76.3. The patient's chemistry shows slightly elevated potassium level of 5.1, elevated chloride of 108.9, elevated BUN of 30, and elevated creatinine of 1.8. The patient's blood glucose was slightly low with a value of 57 and the patient's brain natriuretic peptide level (proBNP) was high with a value of 3846. The patient's albumin level is low with a value of 2.9. DIAGNOSES: 1. Congestive heart failure exacerbation. 2. Hypertension. 3. Chronic kidney disease. 4. Leukocytosis. PLAN OF ACTION: 1. The patient will be admitted to telemetry. 2. The patient will have serial cardiac enzymes involving troponin, total CK, and CK-MB checked every 6 hours x 2 more level. 3. The patient will have Cardiology consult with Dr. Meyers for recurrent CHF with past history of aortic valve disease. 4. The patient will have Nephrology consult with Dr. Linda Perez for chronic kidney disease. 5. The patient will have Accu-Chek before meals and at bedtime followed by low dose sliding scale using regular insulin coverage. 6. The patient will be on albuterol nebulizer 2.5 mg every 6 hours as needed for shortness of breath and will be on IV Lasix 40 mg daily. 7. The patient will be on nitro paste half-inch to the anterior chest wall t.i.d. and will be on p.r.n. medications like Tylenol 650 mg by mouth every 4 hours for fever and headache and IV Zofran 4 mg every 8 hours for nausea and vomiting. 8. The patient's diet will be 2 g sodium consistent carbohydrate diet. 9. The patient's home medications will be started as shown in the medication reconciliation section. JOB# [id number] OCN/NTS
[2018-08-27] MEDS: APRESOLINE PO SCH ×3 (05:35→22:32)
[2018-08-27 06:48] LABS: Creatine Kinase MB 1.5 ng/mL (0.0-4.0)
--- NOTE | 2018-08-27 09:13 | Progress Note ---
Assessment and Plan Acute on chronic hypoxic respiratory failure, present on admission CHF exacerbation, with preserved EF and diastolic dysfunction Hypertension, accelerated Poorly controlled diabetes mellitus type 2 Chronic kidney disease History of moderate aortic stenosis and moderate mitral regurgitation Leukocytosis - Monitor patient and telemetry, consult cardiology and renal -Resume home meds, monitor in's O's, daily weight, monitor BP and optimize meds, - Case management consult for recurrent admission- to assess home needs - Continue supplemental oxygen, patient on 2 L home O2, scheduled neb - Continue DVT prophylaxis, follow cardiology recommendation Brief History: This 83-year-old female with history of Obesity, HTN, DM type 2 and h/o DVT not on anticoagulation, CHF with diastolic dysfunction, on 2 L home O2 who was discharged from this hospital 2 days prior to this admission during which she was admitted for CHF exacerbation and chronic kidney disease, she again presented today with complaint of shortness of breath. Radiological data: Chest x-ray: Mild scattering, atelectasis within the left mid lung field with no acute pulmonary findings Hospitalist Physical exam: GENERAL: well-developed obese elderly female lying on bed appeared to be in no discomfort. HEENT: Normocephalic. Atraumatic. No conjunctival congestion or icterus. Patient has moist mucous membranes. NECK: Supple. Trachea midline. CHEST/LUNGS: Clear to auscultated bilaterally, breathing nonlabored. No wheezes crackles or rhonchi. HEART/CARDIOVASCULAR: Regular in rate and rhythm. S1 and S2 positive. ABDOMEN: Abdomen is soft, nontender. Patient has normal bowel sounds. SKIN: There is no rash. Warm and dry. NEURO: No focal motor deficit. Follows command. MUSCULOSKELETAL: No joint effusion or tenderness. EXTRIMITY: No edema, no cyanosis or clubbing. PSYCH: Cooperative. Subjective Date of service: 08/27/18 Interval history: Pt seen and examoned discussed with family by phone patient c/o SOB even on rest, denies chest pain Objective - Constitutional Vitals: Vital Signs - 12hr 08/26/18 08/26/18 08/26/18 21:26 21:31 21:40 Temperature Pulse Rate 78 77 Pulse Rate [ 81 Anterior Bilateral Throughout] Respiratory 27 H 26 H Rate Respiratory 24 Rate [Anterior Bilateral Throughout] Blood Pressure 188/59 Blood Pressure 188/59 [Left] O2 Sat by Pulse 96 95 Oximetry 08/26/18 08/26/1808/26/19 21:45 22:00 22:15 Temperature Pulse Rate 76 79 83 Pulse Rate [ Anterior Bilateral Throughout] Respiratory 24 21 18 Rate Respiratory Rate [Anterior Bilateral Throughout] Blood Pressure 188/59 196/73 196/73 Blood Pressure [Left] O2 Sat by Pulse 95 92 95 Oximetry 08/26/18 08/26/18 08/26/18 22:17 22:31 23:31 Temperature Pulse Rate 82 88 Pulse Rate [ Anterior Bilateral Throughout] Respiratory 24 22 Rate Respiratory Rate [Anterior Bilateral Throughout] Blood Pressure 194/76 196/73 186/68 Blood Pressure [Left] O2 Sat by Pulse 96 96 Oximetry 08/26/18 08/27/18 08/27/18 23:32 00:07 00:15 Temperature Pulse Rate 86 93 H Pulse Rate [ Anterior Bilateral Throughout] Respiratory 24 26 H Rate Respiratory Rate [Anterior Bilateral Throughout] Blood Pressure 186/68 197/65 184/63 Blood Pressure [Left] O2 Sat by Pulse 96 93 Oximetry 08/27/18 08/27/18 08/27/18 00:34 01:13 02:15 Temperature 98.8 F Pulse Rate 98 H 101 H Pulse Rate [ Anterior Bilateral Throughout] Respiratory 17 20 Rate Respiratory Rate [Anterior Bilateral Throughout] Blood Pressure 186/67 Blood Pressure [Left] O2 Sat by Pulse 97 Oximetry 08/27/18 08/27/18 04:42 05:35 Temperature 97.8 F Pulse Rate 107 H 107 H Pulse Rate [ Anterior Bilateral Throughout] Respiratory 17 Rate Respiratory Rate [Anterior Bilateral Throughout] Blood Pressure 180/74 180/74 Blood Pressure [Left] O2 Sat by Pulse 93 Oximetry - Labs CBC & Chem 7: 08/26/18 21:13 08/28/18 05:21 Labs: Abnormal lab results 08/26/18 08/26/18 08/26/18 Range/Units 20:06 21:13 21:13 WBC 20.1 H (4.5-11.0) K/mm3 RDW 16.1 H (13.2-15.2) % [place] # 0.9 H (0.0-0.8) K/mm3 Baso # 0.2 H (0.0-0.1) K/mm3 Seg Neutrophils % 76.3 H (40.0-70.0) % Seg Neutrophils # 15.4 H (1.8-7.7) K/mm3 Potassium 5.1 H (3.6-5.0) mmol/L Chloride 108.9 H (98-107) mmol/L Carbon Dioxide 19 L (22-30) mmol/L BUN 30 H (7-17) mg/dL Creatinine 1.8 H (0.7-1.2) mg/dL Glucose 57 L (65-100) mg/dL POC Glucose 141 H (70-105) Calcium 8.3 L (8.4-10.2) mg/dL Magnesium 2.50 H (1.7-2.3) mg/dL Alkaline Phosphatase 136 H (35-129) units/L NT-Pro-B Natriuret Pep 3846 H (0-900) pg/mL Albumin 2.9 L (3.9-5) g/dL 08/27/18 Range/Units 05:03 WBC (4.5-11.0) K/mm3 RDW (13.2-15.2) % [place] # (0.0-0.8) K/mm3 Baso # (0.0-0.1) K/mm3 Seg Neutrophils % (40.0-70.0) % Seg Neutrophils # (1.8-7.7) K/mm3 Potassium (3.6-5.0) mmol/L Chloride (98-107) mmol/L Carbon Dioxide (22-30) mmol/L BUN (7-17) mg/dL Creatinine (0.7-1.2) mg/dL Glucose (65-100) mg/dL POC Glucose 255 H (70-105) Calcium (8.4-10.2) mg/dL Magnesium (1.7-2.3) mg/dL Alkaline Phosphatase (35-129) units/L NT-Pro-B Natriuret Pep (0-900) pg/mL Albumin (3.9-5) g/dL
[2018-08-27] MEDS: LASIX IV SCH (09:23)
[2018-08-27] MEDS: NORVASC PO SCH (09:23)
[2018-08-27] MEDS: CATAPRES PO SCH ×2 (09:24→18:33)
[2018-08-27] MEDS: LOPRESSOR PO SCH ×2 (09:24→22:31)
[2018-08-27] MEDS: HumuLIN R SUB-Q SCH ×4 (09:30→22:33)
[2018-08-27 11:02] LABS: Calcium 8.3 mg/dL (8.4-10.2)
--- NOTE | 2018-08-27 12:29 | Consultation ---
History of Present Illness Consult date: 08/27/18 History of present illness: recently d/c, back w sob Medications and Allergies Allergies Allergy/AdvReac Type Severity Reaction Status Date / Time No Known Allergies Allergy Unverified 11/09/13 09:52 Home Medications Medication Instructions Recorded Confirmed Last Taken Type Furosemide [Lasix] 20 mg PO BID #60 tablet 08/24/18 08/26/18 Unknown Rx Metoprolol [Lopressor TAB] 75 mg PO BID #60 tablet 08/24/18 08/26/18 Unknown Rx amLODIPine [Norvasc] 10 mg PO DAILY #30 tablet 08/24/18 08/26/18 Unknown Rx cloNIDine [Catapres] 0.1 mg PO BID #60 tablet 08/24/18 08/26/18 Unknown Rx glipiZIDE [Glucotrol] 10 mg PO BID #60 tablet 08/24/18 08/26/18 Unknown Rx hydrALAZINE [Apresoline TAB] 50 mg PO Q8HR #90 tablet 08/24/18 08/26/18 Unknown Rx Active Meds: Active Medications Acetaminophen (Tylenol) 650 mg PO Q4H PRN PRN Reason: Fever >101 Albuterol (Proventil) 2.5 mg IH Q6HRT PRN PRN Reason: Shortness Of Breath Amlodipine Besylate (Norvasc) 10 mg PO DAILY [facility] Last Admin: 08/27/18 09:23 Dose: 10 mg Documented by: Clonidine HCl (Catapres) 0.1 mg PO BID@0800,1700 [facility] Last Admin: 08/27/18 09:24 Dose: 0.1 mg Documented by: Dextrose (D50w (25gm) Syringe) 50 ml IV PRN PRN PRN Reason: Hypoglycemia Furosemide (Lasix) 40 mg IV QDAY [facility] Last Admin: 08/27/18 09:23 Dose: 40 mg Documented by: Hydralazine HCl (Apresoline) 50 mg PO Q8HR [facility] Last Admin: 08/27/18 05:35 Dose: 50 mg Documented by: Insulin Human Regular (Humulin R) 0 units SUB-Q [facility]; Protocol Last Admin: 08/27/18 09:30 Dose: 4 units Documented by: Insulin Human Regular (Humulin R) [facility]; Protocol Metoprolol Tartrate (Lopressor) 75 mg PO BID [facility] Last Admin: 08/27/18 09:24 Dose: 75 mg Documented by: Nitroglycerin (Nitro-Bid 2%) 0.5 inch TP TIDNTG [facility]NA[facility]; Protocol Last Admin: 08/27/18 05:35 Dose: 0.5 inch Documented by: Ondansetron HCl (Zofran) 4 mg IV Q8H PRN PRN Reason: Nausea And Vomiting Physical Examination Vital Signs Temp Pulse Resp BP Pulse Ox 97.8 F 77 27 H 186/54 100 08/26/18 19:51 08/26/18 19:51 08/26/18 19:51 08/26/18 19:51 08/26/18 19:51 Results 08/26/18 21:13 08/27/18 06:03 Cardiac Enzymes 08/26/18 08/27/18 08/27/18 Range/Units 21:13 00:42 06:03 AST 16 (5-40) units/L CK-MB (CK-2) 2.1 1.5 (0.0-4.0) ng/mL CBC 08/26/18 Range/Units 21:13 WBC 20.1 H (4.5-11.0) K/mm3 RBC 3.99 (3.65-5.03) M/mm3 Hgb 12.4 (10.1-14.3) gm/dl Hct 37.8 (30.3-42.9) % Plt Count 415 (140-440) K/mm3 Lymph # 3.6 (1.2-5.4) K/mm3 [place] # 0.9 H (0.0-0.8) K/mm3 Eos # 0.1 (0.0-0.4) K/mm3 Baso # 0.2 H (0.0-0.1) K/mm3 Comprehensive Metabolic Panel 08/26/18 08/27/18 Range/Units 21:13 06:03 Sodium 141 142 (137-145) mmol/L Potassium 5.1 H 4.7 (3.6-5.0) mmol/L Chloride 108.9 H 106.7 (98-107) mmol/L Carbon Dioxide 19 L 17 L (22-30) mmol/L BUN 30 H 32 H (7-17) mg/dL Creatinine 1.8 H 2.2 H (0.7-1.2) mg/dL Glucose 57 L 259 H (65-100) mg/dL Calcium 8.3 L 8.3 L (8.4-10.2) mg/dL AST 16 (5-40) units/L ALT 17 (7-56) units/L Alkaline Phosphatase 136 H (35-129) units/L Total Protein 7.0 (6.3-8.2) g/dL Albumin 2.9 L (3.9-5) g/dL Assessment and Plan back with hypertensive crisis/HFpEF/A/CKD * ? compliance agree w/ iv lasix nephrology consulted needs better bp control- add imdur lovenox for dvt prophylaxis - Patient Problems (1) CHF exacerbation Current Visit: Yes Status: Acute Qualifiers: Heart failure type: unspecified Qualified Code(s): I50.9 - Heart failure, unspecified (2) Dyspnea Current Visit: Yes Status: Acute Qualifiers: Dyspnea type: shortness of breath Qualified Code(s): R06.02 - Shortness of breath; R06.00 - Dyspnea, unspecified; R06.01 - Orthopnea (3) Hypertensive urgency Current Visit: Yes Status: Acute (4) ARF (acute renal failure) Current Visit: No Status: Acute Qualifiers: Acute renal failure type: with acute tubular necrosis Qualified Code(s): N17.0 - Acute kidney failure with tubular necrosis (5) Accelerated hypertension Current Visit: No Status: Acute (6) Acute heart failure Current Visit: No Status: Acute (7) Acute kidney injury Current Visit: No Status: Acute (8) Elevated d-dimer Current Visit: No Status: Acute (9) Encephalopathy Current Visit: No Status: Acute (10) Leukocytosis Current Visit: No Status: Acute (11) Poorly-controlled hypertension Current Visit: No Status: Acute (12) Stage 3b chronic kidney disease Current Visit: No Status: Acute (13) Type 2 diabetes mellitus Current Visit: No Status: Acute Qualifiers: 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
[2018-08-27] MEDS: HEPARIN SUB-Q SCH ×2 (14:29→22:39)
[2018-08-27] MEDS: IMDUR PO SCH ×2 (14:44→22:32)
--- NOTE | 2018-08-27 18:14 | Consultation ---
History of Present Illness - Reason for Consult Consult date: 08/27/18 acute renal failure Requesting physician: LAURIE PASCUAL - History of Present Illness 83-year-old lady with history of diabetes mellitus, hypertension,, chronic heart failure preserved ejection fraction and chronic kidney disease stage III / IV presents on account of worsening shortness of breath and lower extremity swelling. No cough no fever but she had chills. Patient was recently discharged from the hospital with similar symptoms per her family. She is a poor historian so history is obtained from her and from her family at the bedside. I also spoke with her niece on the phone. Her most recent 2-D echo showed ejection fraction of 55-60% with moderate aortic stenosis and mitral regurgitation. Blood pressure was also high on presentation up to 212/70 mmHg. 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 Lives with her . Originally from [place]). denies: smoking, alcohol abuse, prescription drug abuse, IV drug use Family history: hypertension (father of complications of hypertension. Some of her siblings also have hypertension), other (mother at age 94 of "old age") Medications and Allergies Allergies Allergy/AdvReac Type Severity Reaction Status Date / Time No Known Allergies Allergy Unverified 11/09/13 09:52 Home Medications Medication Instructions Recorded Confirmed Last Taken Type Furosemide [Lasix] 20 mg PO BID #60 tablet 08/24/18 08/26/18 Unknown Rx Metoprolol [Lopressor TAB] 75 mg PO BID #60 tablet 08/24/18 08/26/18 Unknown Rx amLODIPine [Norvasc] 10 mg PO DAILY #30 tablet 08/24/18 08/26/18 Unknown Rx cloNIDine [Catapres] 0.1 mg PO BID #60 tablet 08/24/18 08/26/18 Unknown Rx glipiZIDE [Glucotrol] 10 mg PO BID #60 tablet 08/24/18 08/26/18 Unknown Rx hydrALAZINE [Apresoline TAB] 50 mg PO Q8HR #90 tablet 08/24/18 08/26/18 Unknown Rx Active Meds: Active Medications Acetaminophen (Tylenol) 650 mg PO Q4H PRN PRN Reason: Fever >101 Last Admin: 08/27/18 14:43 Dose: 650 mg Documented by: Albuterol (Proventil) 2.5 mg IH Q6HRT PRN PRN Reason: Shortness Of Breath Amlodipine Besylate (Norvasc) 10 mg PO DAILY [facility] Last Admin: 08/27/18 09:23 Dose: 10 mg Documented by: Clonidine HCl (Catapres) 0.1 mg PO BID@0800,1700 [facility] Last Admin: 08/27/18 09:24 Dose: 0.1 mg Documented by: Dextrose (D50w (25gm) Syringe) 50 ml IV PRN PRN PRN Reason: Hypoglycemia Furosemide (Lasix) 40 mg IV QDAY [facility] Last Admin: 08/27/18 09:23 Dose: 40 mg Documented by: Heparin Sodium (Porcine) (Heparin) 5,000 unit SUB-Q Q12HR [facility] Last Admin: 08/27/18 14:29 Dose: 5,000 unit Documented by: Hydralazine HCl (Apresoline) 50 mg PO Q8HR [facility] Last Admin: 08/27/18 14:44 Dose: 50 mg Documented by: Insulin Human Regular (Humulin R) 0 units SUB-Q AC [facility]; Protocol Last Admin: 08/27/18 14:28 Dose: 3 units Documented by: Insulin Human Regular ([facility]ulin R) [facility]; Protocol Isosorbide Mononitrate (Imdur) 30 mg PO BID [facility] Last Admin: 08/27/18 14:44 Dose: 30 mg Documented by: Metoprolol Tartrate (Lopressor) 75 mg PO BID [facility] Last Admin: 08/27/18 09:24 Dose: 75 mg Documented by: Ondansetron HCl (Zofran) 4 mg IV Q8H PRN PRN Reason: Nausea And Vomiting Review of Systems All systems: negative (Constitutional: no fever or chills. No anorexia or weight loss. HEENT: No sore throat or sinus drainage no hearing or vision impairment . Cardiovascular: See history of present illness. Respiratory: No cough, sputum, shortness of breath, hemoptysis or wheezing. Gastrointestinal: No nausea, vomiting, diarrhea, abdominal pain, hematemesis or melena. Genitourinary: No frequency urgency dysuria or hematuria. hematologic: No abnormal bleeding or bruising. Integumentary: no pruritus or rash. Skin is dry. Neurological: No headache no focal weakness or numbness, no syncope or seizures. Musculoskeletal: Admits to joint pain and stiffness in her knees. Psychiatry: no anxiety or depression) Exam - Vital Signs Vital signs: Vital Signs Temp Pulse Resp BP Pulse Ox 97.8 F 77 27 H 186/54 100 08/26/18 19:51 08/26/18 19:51 08/26/18 19:51 08/26/18 19:51 08/26/18 19:51 - Physical Exam Narrative exam: Elderly female lying in bed in no acute distress HEENT: NCAT, pink oral mucous membrane Neck: Supple, no venous distention CVS: S1S2 RRR with no murmur, rub or gallop Chest: Diminished breath sounds is present in the lower zones Abdomen: Protuberant, soft, nontender, no organomegaly, bowel sounds are present Extremities: 2+ edema thighs and legs bilaterally Skin is warm and dry, Genitourinary deferred Neuro: Awake, alert no focal deficits Results - Lab Results 08/26/18 21:13 08/27/18 06:03 Most recent lab results Calcium 8.3 mg/dL (8.4-10.2) L 08/27/18 06:03 Magnesium 2.50 mg/dL (1.7-2.3) H 08/26/18 21:13 Assessment and Plan - Patient Problems (1) Acute kidney failure Current Visit: Yes Status: Acute Plan to address problem: Acute kidney injury probably Pre-renal azotemia secondary to acute on chronic cardiorenal syndrome versus diuretics. Kidney function is a bit worse. Get urine studies. Continue gentle diuretics and follow-up electrolytes and renal function. I emphasized the importance of adherence to sodium and fluid restriction to patient and family at bedside (2) Acute heart failure with preserved ejection fraction Current Visit: No Status: Chronic Plan to address problem: Continue gentle diuresis. Follow-up electrolytes and renal function. JORDANA inh ibitor/angiotensin receptor starla on hold due to worsening kidney function (3) Hypertensive chronic kidney disease with stage 1 through stage 4 chronic kidney disease, or unspecified chronic kidney disease Current Visit: Yes Status: Acute Plan to address problem: Antihypertensive medications adjusted and blood pressure is improving. Follow- up blood pressure and adjusted medications (4) Chronic kidney disease, stage 4 (severe) Current Visit: Yes Status: Acute Plan to address problem: Baseline stage 3/4 chronically disease secondary to diabetic nephropathy/hypertensive nephrosclerosis with possible contribution from chronic cardiorenal syndrome. Emphasized the importance of follow-up as an outpatient to try to delay progression of chronic kidney disease. (5) Type 2 diabetes mellitus with diabetic chronic kidney disease Current Visit: Yes Status: Acute Plan to address problem: Emphasized blood sugar control to delay progression of chronic kidney disease. Blood sugar management by primary attending (6) Elevated white blood cell count Current Visit: Yes Status: Acute Plan to address problem: Possibly steroid induced. Follow-up cultures. Follow-up white blood cell count
[2018-08-28] MEDS: APRESOLINE PO SCH ×3 (05:24→22:17)
[2018-08-28 07:34] LABS: Calcium 7.8 mg/dL (8.4-10.2)
[2018-08-28] MEDS: LOPRESSOR PO SCH ×2 (10:19→22:18)
[2018-08-28] MEDS: NORVASC PO SCH (10:21)
[2018-08-28] MEDS: CATAPRES PO SCH ×2 (10:21→16:36)
[2018-08-28] MEDS: HEPARIN SUB-Q SCH ×2 (10:21→22:18)
[2018-08-28] MEDS: LASIX IV SCH (10:21)
[2018-08-28] MEDS: IMDUR PO SCH ×2 (10:21→22:18)
[2018-08-28] MEDS: HumuLIN R SUB-Q SCH ×4 (13:32→21:59)
--- NOTE | 2018-08-28 13:54 | Progress Note ---
Assessment and Plan Echo done 08/18/2018 showed EF 55-60%, mild AR, pseudonormalization, mod (CORNELIA 0.85, mean gradient 23mmHg), mild AR, mod MR, RVSP 35-40mmHg. Pt readmitted with HFpEF and aortic stenosis could be contributing to reoccurrence of HF. Will plan for cardiac calcium scoring (cardiac CT WITHOUT contrast) in AM for further evaluation of severity aortic stenosis. NPO after MN. Will increase lopressor to 100mg BID for HR optimization. Volume optimization per nephrology. The patient has been seen in conjunction with Dr. Kate who agrees with the assessment and plan of care. - Patient Problems (1) Acute heart failure with preserved ejection fraction Current Visit: Yes Status: Chronic (2) Moderate aortic stenosis Current Visit: Yes Status: Chronic (3) Mild aortic regurgitation Current Visit: Yes Status: Chronic (4) Moderate mitral regurgitation Current Visit: Yes Status: Chronic (5) ARF (acute renal failure) Current Visit: Yes Status: Acute Qualifiers: Acute renal failure type: with acute tubular necrosis Qualified Code(s): N17.0 - Acute kidney failure with tubular necrosis (6) Accelerated HTN Current Visit: Yes Status: Acute (7) Diabetes Current Visit: Yes Status: Chronic Subjective Date of service: 08/28/18 Principal diagnosis: HF Interval history: pt resting in bed, c/o SOB. at bedside. Objective Last Vital Signs Temp 98.4 F 08/28/18 11:11 Pulse 76 08/28/18 11:14 Resp 20 08/28/18 11:14 BP 137/54 08/28/18 11:14 Pulse Ox 96 08/28/18 11:14 - Physical Examination General: No Apparent Distress HEENT: Positive: PERRL, Normocephaly, Mucus Membranes Moist Neck: Positive: neck supple, trachea midline Cardiac: Positive: Reg Rate and Rhythm, S1/S2, Systolic Murmur Lungs: Positive: Decreased Breath Sounds Neuro: Positive: Grossly Intact Abdomen: Negative: Tender Skin: Negative: Rash, Wound Musculoskeletal: No Pain Extremities: Absent: edema - Labs and Meds Comprehensive Metabolic Panel 08/28/18 Range/Units 05:21 Sodium 143 (137-145) mmol/L Potassium 5.0 (3.6-5.0) mmol/L Chloride 108.0 H (98-107) mmol/L Carbon Dioxide 17 L (22-30) mmol/L BUN 49 H (7-17) mg/dL Creatinine 3.1 H (0.7-1.2) mg/dL Glucose 140 H (65-100) mg/dL Calcium 7.8 L (8.4-10.2) mg/dL - Imaging and Cardiology EKG: report reviewed, image reviewed Echo: report reviewed (08/18/2018: EF 55-60%, mild AR, pseudonormalization, mod (CORNELIA 0.85, mean gradient 23mmHg), mild AR, mod MR, RVSP 35-40mmHg. ) - Telemetry EKG Rhythm: Sinus Rhythm
--- NOTE | 2018-08-28 14:40 | Progress Note ---
Assessment and Plan - Patient Problems (1) Acute kidney failure Current Visit: Yes Status: Acute Plan to address problem: Renal injury is worsening over the last 48 hours. Volume status assessed I do not think that she is significantly hypervolemic at this time. In the setting of her worsening renal function will hold off on further Lasix at this time and will very gently hydrate with normal saline at a very minimum dose of 42 mL per hour for only 1 L. We'll reassess laboratory studies tomorrow. Her urinalysis as well as urine electrolytes are still pending at this time. Will place order for renal ultrasound as well. (2) Chronic kidney disease, stage 4 (severe) Current Visit: Yes Status: Acute Plan to address problem: Likely in the setting of hypertension, diabetes, underlying chronic diastolic heart failure. Unsure if she is presenting with an acute CHF exacerbation at this time. BMP noted with some elevation. Chest x-ray was negative without any significant evidence of pulmonary edema. We'll continue to monitor her renal function closely. We'll need to ensure avoidance of any nephrotoxins. (3) Acute heart failure with preserved ejection fraction Current Visit: No Status: Chronic Plan to address problem: Chest x-ray reviewed without any acute cardiopulmonary process noted. No evidence of pulmonary edema chest x-ray. BNP levels with mild elevation noted. Had been started on Lasix 40 mg IV daily for the last 3 days. Persistent worsening renal function noted. Have any significant lower extremity edema on examination. We'll favor to hold off next dose of Lasix and will start on gentle IV fluids 1 L. Close follow-up of overall volume and respiratory status. (4) Hypertensive chronic kidney disease with stage 1 through stage 4 chronic kidney disease, or unspecified chronic kidney disease Current Visit: Yes Status: Chronic Plan to address problem: Blood pressures are better controlled at this time. We will continue to monitor her current regimen. Continue to hold on JORDANA inhibitor/ARB secondary to unstable renal function. (5) Type 2 diabetes mellitus with diabetic chronic kidney disease Current Visit: Yes Status: Acute Plan to address problem: Diabetes management per primary team. Subjective Date of service: 08/28/18 Principal diagnosis: HF Interval history: Labs noted this morning indicating worsening renal function with serum creatinine now up to 3.1. Chest x-ray reviewed and overall she does not have any peripheral edema noted on examination. She has received Lasix 40 mg IV daily with her dose this morning. Discussed with as well as grandson on the phone. Will hold off on further Lasix at this time and will plan to very gently hydrate her with normal saline at 42 mL an hour for 1 L. Per cardiology notes it seems that she is pending cardiac CT without contrast tomorrow. Objective - Vital Signs Vital signs: Vital Signs - 12hr 08/28/18 08/28/18 08/28/18 05:24 05:39 10:00 Temperature 98.7 F Pulse Rate 70 72 Respiratory 17 Rate Blood Pressure 135/52 146/59 O2 Sat by Pulse 94 95 Oximetry 08/28/18 08/28/18 11:11 11:14 Temperature 98.4 F Pulse Rate 76 Respiratory 20 Rate Blood Pressure 137/54 O2 Sat by Pulse 96 Oximetry - General Appearance General appearance: chronically ill, frail EENT: ATNC, PERRL Neck: no thyromegaly Respiratory: Present: Wheezes Cardiology: regular, S1S2 Gastrointestinal: normal, normoactive bowel sounds Integumentary: no rash, warm and dry Neurologic: no focal deficit, no asterixis Musculoskeletal: other (no edema appreciated on extremities) Psychiatric: cooperative - Lab 08/26/18 21:13 08/28/18 05:21 Most recent lab results Calcium 7.8 mg/dL (8.4-10.2) L 08/28/18 05:21 Magnesium 2.50 mg/dL (1.7-2.3) H 08/28/18 05:21 - Imaging Chest x-ray: report reviewed - Allied health notes Allied health notes reviewed: nursing Medications & Allergies - Medications Allergies/Adverse Reactions: Allergies No Known Allergies Allergy (Unverified 11/09/13 09:52) Home Medications: Home Medications Medication Instructions Recorded Confirmed Last Taken Type Furosemide [Lasix] 20 mg PO BID #60 tablet 08/24/18 08/26/18 Unknown Rx Metoprolol [Lopressor TAB] 75 mg PO BID #60 tablet 08/24/18 08/26/18 Unknown Rx amLODIPine [Norvasc] 10 mg PO DAILY #30 tablet 08/24/18 08/26/18 Unknown Rx cloNIDine [Catapres] 0.1 mg PO BID #60 tablet 08/24/18 08/26/18 Unknown Rx glipiZIDE [Glucotrol] 10 mg PO BID #60 tablet 08/24/18 08/26/18 Unknown Rx hydrALAZINE [Apresoline TAB] 50 mg PO Q8HR #90 tablet 08/24/18 08/26/18 Unknown Rx Active Medications: Generic Name Dose Route Start Last Admin Trade Name Freq PRN Reason Stop Dose Admin Acetaminophen 650 mg 08/26/18 23:46 08/27/18 14:43 Tylenol PO 650 mg Q4H PRN Administration Fever >101 Albuterol 2.5 mg 08/26/18 23:46 Proventil IH Q6HRT PRN Shortness Of Breath Amlodipine Besylate 10 mg 08/27/18 10:00 08/28/18 10:21 Norvasc PO 10 mg DAILY ANAHY Administration Clonidine HCl 0.1 mg 08/27/18 08:00 08/28/18 10:21 Catapres PO 0.1 mg BID@0800,1700 ANAHY Administration Dextrose 50 ml 08/26/18 23:42 D50w (25gm) Syringe IV PRN PRN Hypoglycemia Furosemide 40 mg 08/27/18 10:00 08/28/18 10:21 Lasix IV 40 mg QDAY ANAHY Administration Heparin Sodium (Porcine) 5,000 unit 08/27/18 13:00 08/28/18 10:21 Heparin SUB-Q 5,000 unit Q12HR ANAHY Administration Hydralazine HCl 50 mg 08/27/18 06:00 08/28/18 05:24 Apresoline PO 50 mg Q8HR ANAHY Administration Insulin Human Regular 0 units 08/27/18 07:30 08/28/18 13:32 Humulin R SUB-Q Not Given AC ANAHY Protocol Insulin Human Regular 0 units 08/27/18 22:00 08/27/18 22:33 Humulin R SUB-Q 1 units QHS ANAHY Administration Protocol Isosorbide Mononitrate 30 mg 08/27/18 13:00 08/28/18 10:21 Imdur PO 30 mg BID ANAHY Administration Metoprolol Tartrate 100 mg 08/28/18 14:03 Lopressor PO BID ANAHY Ondansetron HCl 4 mg 08/26/18 23:46 Zofran IV Q8H PRN Nausea And Vomiting
[2018-08-28] MEDS ORDERED: NACL 0.9% 1000 ML 1,000 ML IV SCH (15:00)
--- NOTE | 2018-08-28 16:39 | Progress Note ---
Assessment and Plan Acute on chronic hypoxic respiratory failure, present on admission CHF exacerbation, with preserved EF and diastolic dysfunction Hypertension, accelerated Poorly controlled diabetes mellitus type 2 Hyperkalemia, due to worsening renal function [place] on Chronic kidney disease History of moderate aortic stenosis and moderate mitral regurgitation Leukocytosis, ?etiology - spiked low grade fever last night - Monitor patient and telemetry, consulted cardiology and renal - her symptom could be associated with , plan for cardiac calcium scoring (cardiac CT WITHOUT contrast) in AM for further evaluation of severity aortic stenosis. NPO after MN. Increaseed lopressor to 100mg BID for HR optimization. -Resume home meds, monitor in's O's, daily weight, monitor BP and optimize meds, - renal recommended to hold lasix and place on gentle hydration for worsening renal function - place on renaly dose levaquin, order UA, blood cx - Case management consulted for recurrent admission- to assess home needs - Continue supplemental oxygen, patient on 2 L home O2, scheduled neb - Continue DVT prophylaxis, follow cardiology recommendation Brief History: This 83-year-old female with history of Obesity, HTN, DM type 2 and h/o DVT not on anticoagulation, CHF with diastolic dysfunction, on 2 L home O2 who was discharged from this hospital 2 days prior to this admission during which she was admitted for CHF exacerbation and chronic kidney disease, she again presented on 08/27/18 with complaint of shortness of breath. Radiological data: Chest x-ray: Mild scattering, atelectasis within the left mid lung field with no acute pulmonary findings Hospitalist Physical exam: GENERAL: well-developed obese elderly female lying on bed appeared to be in no discomfort. HEENT: Normocephalic. Atraumatic. No conjunctival congestion or icterus. Patient has moist mucous membranes. NECK: Supple. Trachea midline. CHEST/LUNGS: Clear to auscultated bilaterally, breathing nonlabored. No wheezes crackles or rhonchi. HEART/CARDIOVASCULAR: Regular in rate and rhythm. S1 and S2 positive. ABDOMEN: Abdomen is soft, nontender. Patient has normal bowel sounds. SKIN: There is no rash. Warm and dry. NEURO: No focal motor deficit. Follows command. MUSCULOSKELETAL: No joint effusion or tenderness. EXTRIMITY: No edema, no cyanosis or clubbing. PSYCH: Cooperative. Subjective Date of service: 08/28/18 Principal diagnosis: HF Interval history: Pt seen and examined discussed with family by phone and at bedside patient c/o SOB even on rest, denies chest pain Spiked temp last night Objective - Constitutional Vitals: Vital Signs - 12hr 08/28/18 08/28/18 08/28/18 05:24 05:39 10:00 Temperature 98.7 F Pulse Rate 70 72 Respiratory 17 Rate Blood Pressure 135/52 146/59 O2 Sat by Pulse 94 95 Oximetry 08/28/18 08/28/18 08/28/18 11:11 11:14 16:24 Temperature 98.4 F 97.7 F Pulse Rate 76 Respiratory 20 Rate Blood Pressure 137/54 O2 Sat by Pulse 96 Oximetry 08/28/18 16:25 Temperature Pulse Rate 73 Respiratory 20 Rate Blood Pressure 131/51 O2 Sat by Pulse 95 Oximetry - Labs CBC & Chem 7: 08/26/18 21:13 08/28/18 05:21 Labs: Abnormal lab results 08/27/18 08/27/18 08/27/18 Range/Units 12:29 17:09 21:46 Chloride (98-107) mmol/L Carbon Dioxide (22-30) mmol/L BUN (7-17) mg/dL Creatinine (0.7-1.2) mg/dL Glucose (65-100) mg/dL POC Glucose 263 H 127 H 150 H (70-105) Calcium (8.4-10.2) mg/dL Magnesium (1.7-2.3) mg/dL 08/28/18 08/28/18 Range/Units 05:21 11:23 Chloride 108.0 H (98-107) mmol/L Carbon Dioxide 17 L (22-30) mmol/L BUN 49 H (7-17) mg/dL Creatinine 3.1 H (0.7-1.2) mg/dL Glucose 140 H (65-100) mg/dL POC Glucose 163 H (70-105) Calcium 7.8 L (8.4-10.2) mg/dL Magnesium 2.50 H (1.7-2.3) mg/dL
[2018-08-28 23:05] LABS: Bacteria,Urine 1+ /HPF (Negative); Bilirubin,Urine NEG (Negative); Blood,Urine NEG (Negative); Color,Urine Yellow (Yellow); Mucus,Urine FEW /HPF; Urobilinogen,Urine < 2.0 mg/dL (<2.0)
[2018-08-28 23:06] LABS: Protein,Urine >500 mg/dL (Negative)
[2018-08-28 23:20] LABS: Creatinine,Urine 79.3 mg/dL (0.1-20.0)
[2018-08-29] MEDS: APRESOLINE PO SCH ×3 (05:22→22:32)
--- NOTE | 2018-08-29 08:05 | Progress Note ---
Assessment and Plan - Patient Problems (1) Acute kidney failure Current Visit: Yes Status: Acute Plan to address problem: Renal injury is worsening over the last 48 hours. Volume status assessed I do not think that she is significantly hypervolemic at this time. In the setting of her worsening renal function will hold off on further Lasix at this time and will very gently hydrate with normal saline at a very minimum dose of 42 mL per hour for only 1 L. pending labs this morning ,her urinalysis as well as urine electrolytes are still pending at this time. Will place order for renal ultrasound as well. (2) Chronic kidney disease, stage 4 (severe) Current Visit: Yes Status: Acute Plan to address problem: Likely in the setting of hypertension, diabetes, underlying chronic diastolic heart failure. Unsure if she is presenting with an acute CHF exacerbation at this time. BMP noted with some elevation. Chest x-ray was negative without any significant evidence of pulmonary edema. We'll continue to monitor her renal function closely. We'll need to ensure avoidance of any nephrotoxins. (3) Acute heart failure with preserved ejection fraction Current Visit: No Status: Chronic Plan to address problem: Chest x-ray reviewed without any acute cardiopulmonary process noted. No evidence of pulmonary edema chest x-ray. BNP levels with mild elevation noted. Had been started on Lasix 40 mg IV daily for the last 3 days. Persistent worsening renal function noted. Have any significant lower extremity edema on examination. We'll favor to hold off next dose of Lasix and will start on gentle IV fluids 1 L. Close follow-up of overall volume and respiratory status. (4) Hypertensive chronic kidney disease with stage 1 through stage 4 chronic kidney disease, or unspecified chronic kidney disease Current Visit: Yes Status: Chronic Plan to address problem: Blood pressures are better controlled at this time. We will continue to monitor her current regimen. Continue to hold on JORDANA inhibitor/ARB secondary to unstable renal function. (5) Type 2 diabetes mellitus with diabetic chronic kidney disease Current Visit: Yes Status: Acute Plan to address problem: Diabetes management per primary team. Subjective Date of service: 08/29/18 Principal diagnosis: HF Interval history: Lasix was held yesterday and plan was to initiate on normal saline with gentle IV fluid hydration at 42 mL an hour. Unfortunately IV fluids were not hung overnight despite orders are replaced yesterday. Labs were attempted to be drawn today but per nursing staff patient's refused to have labs done. Objective - Vital Signs Vital signs: Vital Signs - 12hr 08/28/18 08/28/18 08/29/18 20:15 23:08 00:23 Temperature 98.4 F Pulse Rate 72 61 Respiratory 22 18 Rate Blood Pressure 130/47 O2 Sat by Pulse 95 96 Oximetry 08/29/18 08/29/18 03:45 07:19 Temperature 98.0 F Pulse Rate 66 66 Respiratory 18 Rate Blood Pressure 138/53 O2 Sat by Pulse 98 98 Oximetry - General Appearance General appearance: well-developed, well-nourished, appears stated age EENT: ATNC, PERRL Neck: no JVD, no thyromegaly Respiratory: Present: Wheezes Cardiology: regular, S1S2 Gastrointestinal: normal, normoactive bowel sounds Integumentary: no rash, warm and dry Neurologic: no focal deficit, no asterixis Psychiatric: cooperative - Lab 08/26/18 21:13 08/28/18 05:21 Most recent lab results Calcium 7.8 mg/dL (8.4-10.2) L 08/28/18 05:21 Magnesium 2.50 mg/dL (1.7-2.3) H 08/28/18 05:21 Urine Creatinine 79.3 mg/dL (0.1-20.0) H 08/27/18 22:20 Urine Total Protein 424 mg/dL (5-11.8) H 08/27/18 22:20 - Allied health notes Allied health notes reviewed: nursing Medications & Allergies - Medications Allergies/Adverse Reactions: Allergies No Known Allergies Allergy (Unverified 11/09/13 09:52) Home Medications: Home Medications Medication Instructions Recorded Confirmed Last Taken Type Furosemide [Lasix] 20 mg PO BID #60 tablet 08/24/18 08/26/18 Unknown Rx Metoprolol [Lopressor TAB] 75 mg PO BID #60 tablet 08/24/18 08/26/18 Unknown Rx amLODIPine [Norvasc] 10 mg PO DAILY #30 tablet 08/24/18 08/26/18 Unknown Rx cloNIDine [Catapres] 0.1 mg PO BID #60 tablet 08/24/18 08/26/18 Unknown Rx glipiZIDE [Glucotrol] 10 mg PO BID #60 tablet 08/24/18 08/26/18 Unknown Rx hydrALAZINE [Apresoline TAB] 50 mg PO Q8HR #90 tablet 08/24/18 08/26/18 Unknown Rx Active Medications: Generic Name Dose Route Start Last Admin Trade Name Freq PRN Reason Stop Dose Admin Acetaminophen 650 mg 08/26/18 23:46 08/27/18 14:43 Tylenol PO 650 mg Q4H PRN Administration Fever >101 Albuterol 2.5 mg 08/26/18 23:46 Proventil IH Q6HRT PRN Shortness Of Breath Amlodipine Besylate 10 mg 08/27/18 10:00 08/28/18 10:21 Norvasc PO 10 mg DAILY ANAHY Administration Clonidine HCl 0.1 mg 08/27/18 08:00 08/28/18 16:36 Catapres PO 0.1 mg BID@0800,1700 ANAHY Administration Dextrose 50 ml 08/26/18 23:42 D50w (25gm) Syringe IV PRN PRN Hypoglycemia Heparin Sodium (Porcine) 5,000 unit 08/27/18 13:00 08/28/18 22:18 Heparin SUB-Q 5,000 unit Q12HR ANAHY Administration Hydralazine HCl 50 mg 08/27/18 06:00 08/29/18 05:22 Apresoline PO 50 mg Q8HR ANAHY Administration Sodium Chloride 1,000 mls @ 42 mls/hr 08/28/18 15:00 Nacl 0.9% 1000 Ml IV 08/29/18 14:49 DIRECT ANAHY Levofloxacin/Dextrose 250 mg in 50 mls @ 50 mls/hr 08/29/18 10:00 Levaquin 250mg/50ml IV Q24HR [facility] Protocol Insulin Human Regular 0 units 08/27/18 07:30 08/28/18 18:56 Humulin R SUB-Q 1 units AC ANAHY Administration Protocol Insulin Human Regular 0 units 08/27/18 22:00 08/28/18 21:59 Humulin R SUB-Q Not Given QHS [facility] Protocol Isosorbide Mononitrate 30 mg 08/27/18 13:00 08/28/18 22:18 Imdur PO 30 mg BID ANAHY Administration Metoprolol Tartrate 100 mg 08/28/18 14:03 08/28/18 22:18 Lopressor PO 100 mg BID ANAHY Administration Ondansetron HCl 4 mg 08/26/18 23:46 08/29/18 03:28 Zofran IV 4 mg Q8H PRN Administration Nausea And Vomiting
[2018-08-29] MEDS: HumuLIN R SUB-Q SCH ×4 (08:13→22:41)
[2018-08-29] MEDS: CATAPRES PO SCH ×2 (08:57→16:05)
[2018-08-29] MEDS: LEVAQUIN 250MG/50ML 250 MG/50 ML BAG IV SCH (09:00)
[2018-08-29] MEDS: IMDUR PO SCH ×2 (09:01→22:33)
[2018-08-29] MEDS: NORVASC PO SCH (09:02)
[2018-08-29] MEDS: LOPRESSOR PO SCH ×2 (09:02→22:32)
[2018-08-29] MEDS: HEPARIN SUB-Q SCH ×2 (09:07→22:33)
--- NOTE | 2018-08-29 10:16 | Cat Scan Report ---
LIMITED CHEST CT SCAN FOR CALCIUM SCORING: History: Aortic stenosis. A limited chest CT scan was carried out for calcium evaluation of the coronary arteries. This dictation is for the non-cardiac portion of the chest which was included. There is no hilar or mediastinal mass seen. Medium bilateral layering pleural effusions are identified. There is compressive atelectasis in both lower lobes posteriorly. No obvious parenchymal lung disease, nodule or infiltrate is identified. IMPRESSION: Bilateral pleural effusions with compressive atelectasis in the lower lobes.
--- NOTE | 2018-08-29 13:01 | Progress Note ---
Assessment and Plan S/p cardiac CT this AM which showed calcium score in 500s. This suggests that pt's aortic stenosis is not severe. Cont present medical management. Volume optimization per nephrology. The patient has been seen in conjunction with Dr. Kate who agrees with the assessment and plan of care. - Patient Problems (1) Acute heart failure with preserved ejection fraction Current Visit: Yes Status: Chronic (2) Moderate aortic stenosis Current Visit: Yes Status: Chronic (3) Mild aortic regurgitation Current Visit: Yes Status: Chronic (4) Moderate mitral regurgitation Current Visit: Yes Status: Chronic (5) ARF (acute renal failure) Current Visit: Yes Status: Acute Qualifiers: Acute renal failure type: with acute tubular necrosis Qualified Code(s): N17.0 - Acute kidney failure with tubular necrosis (6) Accelerated HTN Current Visit: Yes Status: Acute (7) Diabetes Current Visit: Yes Status: Chronic Subjective Date of service: 08/29/18 Principal diagnosis: HF Interval history: pt resting in bed, no apparent distress. at bedside. Objective Last Vital Signs Temp 98.1 F 08/29/18 11:13 Pulse 60 08/29/18 11:14 Resp 22 08/29/18 11:13 BP 121/48 08/29/18 11:13 Pulse Ox 93 08/29/18 11:14 - Physical Examination General: No Apparent Distress HEENT: Positive: PERRL, Normocephaly, Mucus Membranes Moist Neck: Positive: neck supple, trachea midline Cardiac: Positive: Reg Rate and Rhythm, S1/S2, Systolic Murmur Lungs: Positive: Decreased Breath Sounds Neuro: Positive: Grossly Intact Abdomen: Negative: Tender Skin: Negative: Rash, Wound Musculoskeletal: No Pain Extremities: Absent: edema - Imaging and Cardiology EKG: report reviewed, image reviewed Echo: report reviewed (08/18/2018: EF 55-60%, mild AR, pseudonormalization, mod ([place]ELIA 0.85, mean gradient 23mmHg), mild AR, mod MR, RVSP 35-40mmHg. ) - Allied health notes Allied health notes reviewed: nursing
[2018-08-29 13:10] LABS: Calcium 7.2 mg/dL (8.4-10.2)
--- NOTE | 2018-08-29 16:58 | Progress Note ---
Assessment and Plan Assessment and plan: Patient is a 83-year-old female with history of Obesity, HTN, DM type 2 and h/o DVT not on anticoagulation, CHF with diastolic dysfunction, on 2 L home O2 who was discharged from this hospital 2 days prior to this admission during which she was admitted for CHF exacerbation and chronic kidney disease, she again presented on 08/27/18 with complaint of shortness of breath. * Radiological data: Chest x-ray: Mild scattering, atelectasis within the left mid lung field with no acute pulmonary findings Acute on chronic hypoxic respiratory failure, present on admission CHF exacerbation, with preserved EF and diastolic dysfunction Hypertension, accelerated Poorly controlled diabetes mellitus type 2 Hyperkalemia, due to worsening renal function [place] on Chronic kidney disease, vasomotor nephropathy, poa History of moderate aortic stenosis and moderate mitral regurgitation Leukocytosis, most likely reactive etiology - spiked low grade temp 100.2F isolated, - Monitor patient and telemetry, consulted cardiology and renal - her symptom could be associated with , plan for cardiac calcium scoring (cardiac CT WITHOUT contrast) in AM for further evaluation of severity aortic stenosis. NPO after MN. Increaseed lopressor to 100mg BID for HR optimization. - Resume home meds, monitor in's O's, daily weight, monitor BP and optimize meds, - renal recommended to hold lasix and place on gentle hydration for worsening renal function - place on renaly dose levaquin, order UA, blood cx - Case management consulted for recurrent admission- to assess home needs - Continue supplemental oxygen, patient on 2 L home O2, scheduled neb - Continue DVT prophylaxis, follow cardiology recommendation new aphasia, CT head stat ordered History Interval history: Patient was seen and examined. Follow-up on current diagnosis. Overnight uneventful. Patient denies any chest pain, shortness breath, nausea/vomiting or severe headaches. Imaging, nursing note, chart, labs and old chart reviewed. Discussed with patient. Aditya called but family/ called laura Johnson to [place]. says stopped speaking around 3 am. Hospitalist Physical - Physical exam Narrative exam: Gen: ill appearing, NAD, Awake, Alert, nonverbal HEENT: NCAT, facial asymmetry Neck: supple, no adenopathy, no thyromegaly, no JVD CVS/Heart: RRR, normal S1S2, pulses present bilaterally Chest/Lungs: diminished bs bilateral, Symmetrical chest expansion, good air entry bilaterally GI/Abdomen: soft, NTND, good bowel sounds, no guarding or rebound /Bladder: no suprapubic tenderness, no CVA or paraspinal tenderness Extermity/Skin: no c/c/e, no obvious rash MSK: FROM x 4, weaker bilateral Neuro: CN 2-12 grossly intact, aphasia with facial asymmetry Psych: calm - Constitutional Vitals: Temp Pulse Resp BP Pulse Ox 98.5 F 65 18 137/54 92 08/29/18 15:11 08/29/18 16:05 08/29/18 15:11 08/29/18 16:05 08/29/18 15:11 Results - Labs CBC & Chem 7: 08/26/18 21:13 08/29/18 12:37 Labs: Laboratory Last Values WBC 20.1 K/mm3 (4.5-11.0) H 08/26/18 21:13 RBC 3.99 M/mm3 (3.65-5.03) 08/26/18 21:13 Hgb 12.4 gm/dl (10.1-14.3) 08/26/18 21:13 Hct 37.8 % (30.3-42.9) 08/26/18 21:13 MCV 95 fl (79-97) 08/26/18 21:13 MCH 31 pg (28-32) 08/26/18 21:13 MCHC 33 % (30-34) 08/26/18 21:13 RDW 16.1 % (13.2-15.2) H 08/26/18 21:13 Plt Count 415 K/mm3 (140-440) 08/26/18 21:13 Lymph % (Auto) 17.7 % (13.4-35.0) 08/26/18 21:13 [place] % (Auto) 4.4 % (0.0-7.3) 08/26/18 21:13 Eos % (Auto) 0.6 % (0.0-4.3) 08/26/18 21:13 Baso % (Auto) 1.0 % (0.0-1.8) 08/26/18 21:13 Lymph # 3.6 K/mm3 (1.2-5.4) 08/26/18 21:13 [place] # 0.9 K/mm3 (0.0-0.8) H 08/26/18 21:13 Eos # 0.1 K/mm3 (0.0-0.4) 08/26/18 21:13 Baso # 0.2 K/mm3 (0.0-0.1) H 08/26/18 21:13 Seg Neutrophils % 76.3 % (40.0-70.0) H 08/26/18 21:13 Seg Neutrophils # 15.4 K/mm3 (1.8-7.7) H 08/26/18 21:13 Sodium 138 mmol/L (137-145) 08/29/18 12:37 Potassium 4.9 mmol/L (3.6-5.0) 08/29/18 12:37 Chloride 108.2 mmol/L (98-107) H 08/29/18 12:37 Carbon Dioxide 19 mmol/L (22-30) L 08/29/18 12:37 Anion Gap 16 mmol/L 08/29/18 12:37 BUN 53 mg/dL (7-17) H 08/29/18 12:37 Creatinine 3.2 mg/dL (0.7-1.2) H 08/29/18 12:37 Estimated GFR 14 ml/min 08/29/18 12:37 BUN/Creatinine Ratio 17 % 08/29/18 12:37 Glucose 146 mg/dL (65-100) H 08/29/18 12:37 POC Glucose 138 (70-105) H 08/29/18 16:19 Calcium 7.2 mg/dL (8.4-10.2) L 08/29/18 12:37 Magnesium 2.50 mg/dL (1.7-2.3) H 08/28/18 05:21 Total Bilirubin 0.20 mg/dL (0.1-1.2) 08/26/18 21:13 AST 16 units/L (5-40) 08/26/18 21:13 ALT 17 units/L (7-56) 08/26/18 21:13 Alkaline Phosphatase 136 units/L (35-129) H 08/26/18 21:13 Total Creatine Kinase 37 units/L (30-135) 08/27/18 06:03 CK-MB (CK-2) 1.5 ng/mL (0.0-4.0) 08/27/18 06:03 CK-MB (CK-2) Rel Index 4.0 (0-4) 08/27/18 06:03 Troponin T < 0.010 ng/mL (0.00-0.029) 08/27/18 06:03 NT-Pro-B Natriuret Pep 3846 pg/mL (0-900) H 08/26/18 21:13 Total Protein 7.0 g/dL (6.3-8.2) 08/26/18 21:13 Albumin 2.9 g/dL (3.9-5) L 08/26/18 21:13 Albumin/Globulin Ratio 0.7 % 08/26/18 21:13 Urine Color Yellow (Yellow) 08/27/18 22:20 Urine Turbidity Clear (Clear) 08/27/18 22:20 Urine pH 7.0 (5.0-7.0) 08/27/18 22:20 Ur Specific [place] 1.011 (1.003-1.030) 08/27/18 22:20 Urine Protein >500 mg/dL (Negative) 08/27/18 22:20 Urine Glucose (UA) Neg mg/dL (Negative) 08/27/18 22:20 Urine Ketones Neg mg/dL (Negative) 08/27/18 22:20 Urine Blood Neg (Negative) 08/27/18 22:20 Urine Nitrite Neg (Negative) 08/27/18 22:20 Urine Bilirubin Neg (Negative) 08/27/18 22:20 Urine Urobilinogen < 2.0 mg/dL (<2.0) 08/27/18 22:20 Ur Leukocyte Esterase Neg (Negative) 08/27/18 22:20 Urine WBC (Auto) 1.0 /HPF (0.0-6.0) 08/27/18 22:20 Urine RBC (Auto) 1.0 /HPF (0.0-6.0) 08/27/18 22:20 U Epithel Cells (Auto) < 1.0 /HPF (0-13.0) 08/27/18 22:20 Urine Bacteria (Auto) 1+ /HPF (Negative) 08/27/18 22:20 Urine Mucus Few /HPF 08/27/18 22:20 Urine Creatinine 79.3 mg/dL (0.1-20.0) H 08/27/18 22:20 Urine Total Protein 424 mg/dL (5-11.8) H 08/27/18 22:20
--- NOTE | 2018-08-29 17:32 | Progress Note ---
Subjective Date of service: 08/29/18 Principal diagnosis: HF Interval history: patient seen on stroke alert she is minimally aphasic otherwise sdtroke scale is 2 no docuemnted last known well time stat CT shows old ischemic infarct left internal white matter age of stroke unknown she is not candidate for tPA based on factors described rec w/o echo carotid will speak to DR. Conklin note dictated Objective - Vital Sign Vital Signs - 12hr 08/29/18 08/29/18 08/29/18 07:19 08:57 09:01 Temperature 97.8 F Pulse Rate 81 81 81 Respiratory 16 Rate Blood Pressure 139/59 139/59 Blood Pressure 139/54 [Left] O2 Sat by Pulse 97 Oximetry 08/29/18 08/29/18 08/29/18 09:02 09:50 11:13 Temperature 98.1 F Pulse Rate 81 62 Respiratory 22 Rate Blood Pressure 139/59 121/48 Blood Pressure [Left] O2 Sat by Pulse 94 93 Oximetry 08/29/18 08/29/18 08/29/18 11:14 15:11 15:36 Temperature 98.5 F Pulse Rate 60 65 65 Respiratory 18 Rate Blood Pressure 137/54 137/54 Blood Pressure [Left] O2 Sat by Pulse 93 92 Oximetry 08/29/18 16:05 Temperature Pulse Rate 65 Respiratory Rate Blood Pressure 137/54 Blood Pressure [Left] O2 Sat by Pulse Oximetry - Laboratory Findings CBC and BMP: 08/26/18 21:13 08/29/18 12:37 Abnormal Lab Findings: Abnormal Labs 08/26/18 08/26/18 08/26/18 20:06 21:13 21:13 WBC 20.1 H RDW 16.1 H [place] # 0.9 H Baso # 0.2 H Seg Neutrophils % 76.3 H Seg Neutrophils # 15.4 H Potassium 5.1 H Chloride 108.9 H Carbon Dioxide 19 L BUN 30 H Creatinine 1.8 H Glucose 57 L POC Glucose 141 H Calcium 8.3 L Magnesium 2.50 H Alkaline Phosphatase 136 H NT-Pro-B Natriuret Pep 3846 H Albumin 2.9 L Urine Creatinine Urine Total Protein 08/27/18 08/27/18 08/27/18 05:03 06:03 09:14 WBC RDW [place] # Baso # Seg Neutrophils % Seg Neutrophils # Potassium Chloride Carbon Dioxide 17 L BUN 32 H Creatinine 2.2 H Glucose 259 H POC Glucose 255 H 328 H Calcium 8.3 L Magnesium Alkaline Phosphatase NT-Pro-B Natriuret Pep Albumin Urine Creatinine Urine Total Protein 08/27/18 08/27/18 08/27/18 12:29 17:09 21:46 WBC RDW [place] # Baso # Seg Neutrophils % Seg Neutrophils # Potassium Chloride Carbon Dioxide BUN Creatinine Glucose POC Glucose 263 H 127 H 150 H Calcium Magnesium Alkaline Phosphatase NT-Pro-B Natriuret Pep Albumin Urine Creatinine Urine Total Protein 08/27/18 08/28/18 08/28/18 22:20 05:21 11:23 WBC RDW [place] # Baso # Seg Neutrophils % Seg Neutrophils # Potassium Chloride 108.0 H Carbon Dioxide 17 L BUN 49 H Creatinine 3.1 H Glucose 140 H POC Glucose 163 H Calcium 7.8 L Magnesium 2.50 H Alkaline Phosphatase NT-Pro-B Natriuret Pep Albumin Urine Creatinine 79.3 H Urine Total Protein 424 H 08/28/18 08/29/18 08/29/18 16:26 09:59 12:37 WBC RDW [place] # Baso # Seg Neutrophils % Seg Neutrophils # Potassium Chloride 108.2 H Carbon Dioxide 19 L BUN 53 H Creatinine 3.2 H Glucose 146 H POC Glucose 173 H 191 H Calcium 7.2 L Magnesium Alkaline Phosphatase NT-Pro-B Natriuret Pep Albumin Urine Creatinine Urine Total Protein 08/29/18 16:19 WBC RDW [place] # Baso # Seg Neutrophils % Seg Neutrophils # Potassium Chloride Carbon Dioxide BUN Creatinine Glucose POC Glucose 138 H Calcium Magnesium Alkaline Phosphatase NT-Pro-B Natriuret Pep Albumin Urine Creatinine Urine Total Protein
--- NOTE | 2018-08-29 17:45 | Cat Scan Report ---
FINAL REPORT EXAM: CT HEAD/BRAIN WO CON HISTORY: aphasia TECHNIQUE: CT examination of the head without IV contrast PRIORS: Facial CT 11/07/2016 FINDINGS: Moderate mucosal thickening left ethmoid sinus and left frontal sinus. Other included paranasal sinus es are clear as are the mastoid air cells and middle ear cavities. Developmental variation includes a cavum septum pellucidum and vergae. Cerebrovascular atherosclerosi s is manifest as calcified plaque in the carotid siphons and the vertebral arteries. Stable chronic lacunar infarct lateral right basal ganglia also involving the external capsule. Stabl e chronic lacunar infarct upper left basal ganglia. Nonspecific small benign-appearing calcifications in the upper right parietal lobe sulci. This region not included on comparison exam. No acute air-fluid level visualized in the included air-filled sinuses. Bone windows demonstrate no acute fracture. There is ventricular and sulcal prominence compatible with global cerebrocortical atrophy. Low attenuation regions in the cerebral white matter, while nonspecific, are present and usually attr ibuted to chronic ischemic gliosis. It can occur secondary to the normal aging process, hypertension, or arterial sclerotic vascular disease. The differential includes demyelination in the appropriate c linical setting. The brain is without mass, mass effect, or hemorrhage. No definite CT evidence of acute infarct. There is no extra-axial intracranial bleed or brain bleed. There is no midline shift. IMPRESSION: No acute CVA, intracranial bleed, or brain mass Stable chronic lacunar infarcts bilaterally, unchanged from 2017
--- NOTE | 2018-08-29 23:39 | Consultation ---
HISTORY OF PRESENT ILLNESS: The patient was admitted initially to [facility] because of shortness of breath and low blood sugar. She is an 83-year-old diabetic. Apparently became less responsive earlier, stroke alert was called. Dr. Conklin notified the nurse to do stroke alert. At the time of my seeing the patient on stat stroke alert, she was minimally aphasic, although no asl interpreter was present. I did examine her, she has no focal weakness. She has full gaze. She has limited speech, may have expressive aphasia. Motor tone is otherwise symmetrical. Sensory exam is normal. Visual espinoza are full. Pupils equal, round, reactive to light. Cranial nerves 2-12 are intact. Aphasia screen is not possible to fully be done because I do not have an asl interpreter, but she does speak to family members in Faroese. The patient does not have any focal weakness. She is slightly sleepy, but I wound not classify her as being comatose or lethargic. 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 This is small in the internal capsule area, may account for her speech difficulty. This is old, age of the stroke is unknown. She is clearly not a TPA candidate based on minimal stroke scale evidence of the old stroke, but we do not have a very well documented time from family members, nurses, and the staff. I will speak with Dr. Conklin and advised him of my findings. JOB# [id number] JUAN/NTS
[2018-08-30] MEDS: APRESOLINE PO SCH ×3 (05:27→22:44)
[2018-08-30 06:00] LABS: Bilirubin,Urine NEG (Negative); Blood,Urine NEG (Negative); Color,Urine Yellow (Yellow); Mucus,Urine FEW /HPF; Protein,Urine >500 mg/dL (Negative); RBC,Urine < 1.0 /HPF (0.0-6.0); Urobilinogen,Urine < 2.0 mg/dL (<2.0)
[2018-08-30 06:44] LABS: Basophils % (Auto) 0.4 % (0.0-1.8); Eosinophils # (Auto) 0.1 K/mm3 (0.0-0.4); Eosinophils % (Auto) 1.3 % (0.0-4.3); Hematocrit 28.5 % (30.3-42.9); Hemoglobin 9.6 gm/dl (10.1-14.3); Lymphocytes # (Auto) 1.9 K/mm3 (1.2-5.4); Lymphocytes % (Auto) 18.2 % (13.4-35.0); Mean Corpuscular HGB Conc 34 % (30-34); Mean Corpuscular Volume 94 fl (79-97); Monocytes # (Auto) 0.7 K/mm3 (0.0-0.8); Platelet Count 366 K/mm3 (140-440); Red Blood Count 3.05 M/mm3 (3.65-5.03); Red Cell Distribution Width 15.5 % (13.2-15.2)
[2018-08-30] MEDS: HumuLIN R SUB-Q SCH ×3 (07:30→22:44)
[2018-08-30] MEDS: CATAPRES PO SCH (08:00)
[2018-08-30] MEDS: LEVAQUIN 250MG/50ML 250 MG/50 ML BAG IV SCH (11:00)
[2018-08-30] MEDS: IMDUR PO SCH ×2 (11:00→22:45)
[2018-08-30] MEDS: HEPARIN SUB-Q SCH ×2 (11:00→22:45)
[2018-08-30] MEDS: LOPRESSOR PO SCH ×2 (11:00→22:44)
[2018-08-30] MEDS: NORVASC PO SCH (11:00)
--- NOTE | 2018-08-30 11:06 | Progress Note ---
Assessment and Plan Pt with aphasia since yesterday per primary RN. Code stroke was called yesterday, head CT with NAF, neurology following. She appears to be clinically improving from a cardiac standpoint. Cont present cardiac management. Volume optimization per nephrology. The patient has been seen in conjunction with Dr. Kate who agrees with the assessment and plan of care. - Patient Problems (1) Acute heart failure with preserved ejection fraction Current Visit: Yes Status: Chronic (2) Moderate aortic stenosis Current Visit: Yes Status: Chronic (3) Mild aortic regurgitation Current Visit: Yes Status: Chronic (4) Moderate mitral regurgitation Current Visit: Yes Status: Chronic (5) ARF (acute renal failure) Current Visit: Yes Status: Acute Qualifiers: Acute renal failure type: with acute tubular necrosis Qualified Code(s): N17.0 - Acute kidney failure with tubular necrosis (6) Accelerated HTN Current Visit: Yes Status: Acute (7) Diabetes Current Visit: Yes Status: Chronic Subjective Date of service: 08/30/18 Principal diagnosis: HF Interval history: pt sitting up at bedside, no apparent distress. at bedside. Objective Last Vital Signs Temp 98.5 F 08/30/18 04:11 Pulse 63 08/30/18 04:11 Resp 16 08/30/18 04:11 BP 132/51 08/30/18 05:27 Pulse Ox 97 08/30/18 04:11 - Physical Examination General: No Apparent Distress HEENT: Positive: PERRL, Normocephaly, Mucus Membranes Moist Neck: Positive: neck supple, trachea midline Cardiac: Positive: Reg Rate and Rhythm, S1/S2, Systolic Murmur Lungs: Positive: Decreased Breath Sounds Neuro: Positive: Grossly Intact Abdomen: Negative: Tender Skin: Negative: Rash, Wound Musculoskeletal: No Pain Extremities: Absent: edema - Labs and Meds CBC 08/30/18 Range/Units 06:24 WBC 10.3 (4.5-11.0) K/mm3 RBC 3.05 L (3.65-5.03) M/mm3 Hgb 9.6 L (10.1-14.3) gm/dl Hct 28.5 L (30.3-42.9) % Plt Count 366 (140-440) K/mm3 Lymph # 1.9 (1.2-5.4) K/mm3 [place] # 0.7 (0.0-0.8) K/mm3 Eos # 0.1 (0.0-0.4) K/mm3 Baso # 0.0 (0.0-0.1) K/mm3 Comprehensive Metabolic Panel 08/29/18 Range/Units 12:37 Sodium 138 (137-145) mmol/L Potassium 4.9 (3.6-5.0) mmol/L Chloride 108.2 H (98-107) mmol/L Carbon Dioxide 19 L (22-30) mmol/L BUN 53 H (7-17) mg/dL Creatinine 3.2 H (0.7-1.2) mg/dL Glucose 146 H (65-100) mg/dL Calcium 7.2 L (8.4-10.2) mg/dL - Imaging and Cardiology EKG: report reviewed, image reviewed Echo: report reviewed (08/18/2018: EF 55-60%, mild AR, pseudonormalization, mod ([place]EL[place] 0.85, mean gradient 23mmHg), mild AR, mod MR, RVSP 35-40mmHg. ) - Allied health notes Allied health notes reviewed: nursing
--- NOTE | 2018-08-30 11:08 | Progress Note ---
Assessment and Plan - Patient Problems (1) Acute kidney failure Current Visit: Yes Status: Acute Plan to address problem: Renal function panel pending this morning. She has completed 1 L of IV fluids. We'll assess response. We'll also obtain renal ultrasound.. (2) Chronic kidney disease, stage 4 (severe) Current Visit: Yes Status: Acute Plan to address problem: Likely in the setting of hypertension, diabetes, underlying chronic diastolic heart failure. Unsure if she is presenting with an acute CHF exacerbation at this time. BMP noted with some elevation. Chest x-ray was negative without any significant evidence of pulmonary edema. We'll continue to monitor her renal function closely. We'll need to ensure avoidance of any nephrotoxins. (3) Acute heart failure with preserved ejection fraction Current Visit: No Status: Chronic Plan to address problem: Chest x-ray reviewed without any acute cardiopulmonary process noted. No evidence of pulmonary edema chest x-ray. BNP levels with mild elevation noted. Had been started on Lasix 40 mg IV daily for the last 3 days. Persistent worsening renal function noted. Have any significant lower extremity edema on examination. Discontinued Lasix and started on gentle IV fluids 1 L, with Close follow-up of overall volume and respiratory status. We'll reassess renal function this morning. (4) Hypertensive chronic kidney disease with stage 1 through stage 4 chronic kidney disease, or unspecified chronic kidney disease Current Visit: Yes Status: Chronic Plan to address problem: Blood pressures are better controlled at this time. We will continue to monitor her current regimen. Continue to hold on JORDANA inhibitor/ARB secondary to unstable renal function. (5) Type 2 diabetes mellitus with diabetic chronic kidney disease Current Visit: Yes Status: Acute Plan to address problem: Diabetes management per primary team. Subjective Date of service: 08/30/18 Principal diagnosis: HF Interval history: Discussed with the nursing staff at bedside. She apparently had some change in mental status and there was concern that she was becoming more aphasic. She had CT scan head done which did not show any acute abnormalities but did show old chronic infarcts. She had a neurologic evaluation by neurology at bedside. She is pending MRI of the brain at this time. She has not had any repeat labs done this morning in regards to renal function panel. I have asked the nurse to draw the sloughed this morning to assess response to IV fluids that were administered. No significant respiratory distress noted at this time. She is stable on 2 L of O2 via nasal cannula. Objective - Vital Signs Vital signs: Vital Signs - 12hr 08/29/18 08/30/18 08/30/18 23:25 04:11 05:27 Temperature 98.4 F 98.5 F Pulse Rate 64 63 Respiratory 16 16 Rate Blood Pressure 132/47 132/51 132/51 O2 Sat by Pulse 96 97 Oximetry - General Appearance General appearance: well-nourished, appears stated age EENT: ATNC, PERRL Neck: no thyromegaly, supple Respiratory: Present: Decreased Breath Sounds Cardiology: regular, S1S2 Gastrointestinal: normal, normoactive bowel sounds Integumentary: no rash, warm and dry Neurologic: no focal deficit Musculoskeletal: other (negative edema) Psychiatric: cooperative - Lab 08/30/18 06:24 08/29/18 12:37 Most recent lab results Calcium 7.2 mg/dL (8.4-10.2) L 08/29/18 12:37 Magnesium 2.50 mg/dL (1.7-2.3) H 08/28/18 05:21 Urine Creatinine 79.3 mg/dL (0.1-20.0) H 08/27/18 22:20 Urine Total Protein 424 mg/dL (5-11.8) H 08/27/18 22:20 - Allied health notes Allied health notes reviewed: nursing Medications & Allergies - Medications Allergies/Adverse Reactions: Allergies No Known Allergies Allergy (Unverified 11/09/13 09:52) Home Medications: Home Medications Medication Instructions Recorded Confirmed Last Taken Type Furosemide [Lasix] 20 mg PO BID #60 tablet 08/24/18 08/26/18 Unknown Rx Metoprolol [Lopressor TAB] 75 mg PO BID #60 tablet 08/24/18 08/26/18 Unknown Rx amLODIPine [Norvasc] 10 mg PO DAILY #30 tablet 08/24/18 08/26/18 Unknown Rx cloNIDine [Catapres] 0.1 mg PO BID #60 tablet 08/24/18 08/26/18 Unknown Rx glipiZIDE [Glucotrol] 10 mg PO BID #60 tablet 08/24/18 08/26/18 Unknown Rx hydrALAZINE [Apresoline TAB] 50 mg PO Q8HR #90 tablet 08/24/18 08/26/18 Unknown Rx Active Medications: Generic Name Dose Route Start Last Admin Trade Name Freq PRN Reason Stop Dose Admin Acetaminophen 650 mg 08/26/18 23:46 08/27/18 14:43 Tylenol PO 650 mg Q4H PRN Administration Fever >101 Albuterol 2.5 mg 08/26/18 23:46 Proventil IH Q6HRT PRN Shortness Of Breath Amlodipine Besylate 10 mg 08/27/18 10:00 08/29/18 09:02 Norvasc PO 10 mg DAILY ANAHY Administration Clonidine HCl 0.1 mg 08/27/18 08:00 08/29/18 16:05 Catapres PO 0.1 mg BID@0800,1700 ANAHY Administration Dextrose 50 ml 08/26/18 23:42 D50w (25gm) Syringe IV PRN PRN Hypoglycemia Heparin Sodium (Porcine) 5,000 unit 08/27/18 13:00 08/29/18 22:33 Heparin SUB-Q 5,000 unit Q12HR ANAHY Administration Hydralazine HCl 50 mg 08/27/18 06:00 08/30/18 05:27 Apresoline PO 50 mg Q8HR ANAHY Administration Levofloxacin/Dextrose 250 mg in 50 mls @ 50 mls/hr 08/29/18 10:00 08/29/18 12:50 Levaquin 250mg/50ml IV Infused Q24HR ANAHY Infusion Protocol Insulin Human Regular 0 units 08/27/18 07:30 08/29/18 16:57 Humulin R SUB-Q Not Given [facility] Protocol Insulin Human Regular 0 units 08/27/18 22:00 08/29/18 22:41 Humulin R SUB-Q 1 units QHS ANAHY Administration Protocol Isosorbide Mononitrate 30 mg 08/27/18 13:00 08/29/18 22:33 Imdur PO 30 mg BID ANAHY Administration Metoprolol Tartrate 100 mg 08/28/18 14:03 08/29/18 22:32 Lopressor PO 100 mg BID ANAHY Administration Ondansetron HCl 4 mg 08/26/18 23:46 08/29/18 03:28 Zofran IV 4 mg Q8H PRN Administration Nausea And Vomiting
--- NOTE | 2018-08-30 15:40 | Magnetic Resonance Report ---
MRI OF THE BRAIN WITHOUT CONTRAST: HISTORY: Aphasia PROCEDURE: Multiplanar, multisequence MR imaging of the brain without IV contrast was performed. FINDINGS: Compared to the CT dated 08/29/18. Moderate diffuse volume loss and mild nonspecific chronic white matter changes are identified. No evidence for acute ischemia, hemorrhage or mass. No chronic infarct or extra-axial fluid collection. The midline structures are central. The basal cisterns are patent. Normal ventricular size. The orbital cavities and sella turcica demonstrate no abnormality. The visualized paranasal sinuses and mastoid air cells are well aerated. IMPRESSION: No acute intracranial process. Volume loss and chronic white matter changes.
--- NOTE | 2018-08-30 18:13 | Progress Note ---
Assessment and Plan Assessment and plan: Patient is a 83-year-old female with history of Obesity, HTN, DM type 2 and h/o DVT not on anticoagulation, CHF with diastolic dysfunction, on 2 L home O2 who was discharged from this hospital 2 days prior to this admission during which she was admitted for CHF exacerbation and chronic kidney disease, she again presented on 08/27/18 with complaint of shortness of breath. * Radiological data: Chest x-ray: Mild scattering, atelectasis within the left mid lung field with no acute pulmonary findings Acute on chronic hypoxic respiratory failure, present on admission with bilateral pleural effusion, treat with lasix but renal function worsened, no lasix stopped and hydrating carefully: treat with O2 Acute on chronic diastolic heart failure with preserved EF and diastolic dysfunction, stable now: Cardiology evaluated Hypertension, accelerated: low salt diet, and treat with antihypertensives Poorly controlled diabetes mellitus type 2: SSI Hyperkalemia, due to worsening renal function: monitor bmp closely [place] on Chronic kidney disease, vasomotor nephropathy, poa: Renal is following renal u/s pending History of moderate aortic stenosis and moderate mitral regurgitation: Cardiology following Leukocytosis, most likely reactive etiology - spiked low grade temp 100.2F isolated: follow blood culture, negative so far, on empiric Levaquin Aphasia, 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 This morning, pt had blank staring prolonged episode with left sided weakness, MRI brain ordered which confirmed no acute stroke. EEG ordered and is pending. Renal ultrasound pending Disposition: continue inpatient care, anticipate home once Nephrology clears, renal u/s pending, EEG pending. Home O2 setup. History Interval history: Patient was seen and examined. Follow-up on current diagnosis. Overnight uneventful. Patient denies any chest pain, shortness breath, nausea/vomiting or severe headaches. Imaging, nursing note, chart, labs and old chart reviewed. Discussed with patient. Aditya called but family/ called laura Johnson to [place]. says stopped speaking around 3 am tuesday morning, code stroke called, Neurology saw==> no acute stroke. This morning, pt had blank staring prolonged episode with left sided weakness, MRI brain ordered which confirmed no acute stroke. EEG ordered and is pending. Renal ultrasound pending Hospitalist Physical - Physical exam Narrative exam: Gen: ill appearing, NAD, Awake, Alert, nonverbal HEENT: NCAT, facial asymmetry Neck: supple, no adenopathy, no thyromegaly, no JVD CVS/Heart: RRR, normal S1S2, pulses present bilaterally Chest/Lungs: diminished bs bilateral, Symmetrical chest expansion, good air entry bilaterally GI/Abdomen: soft, NTND, good bowel sounds, no guarding or rebound /Bladder: no suprapubic tenderness, no CVA or paraspinal tenderness Extermity/Skin: no c/c/e, no obvious rash MSK: FROM x 4, weaker bilateral Neuro: CN 2-12 grossly intact, aphasia with facial asymmetry Psych: calm - Constitutional Vitals: Temp Pulse Resp BP Pulse Ox 99 F 69 18 145/59 93 08/30/18 16:30 08/30/18 16:30 08/30/18 16:30 08/30/18 16:30 08/30/18 16:25 Results - Labs CBC & Chem 7: 08/30/18 06:24 08/29/18 12:37 Labs: Laboratory Last Values WBC 10.3 K/mm3 (4.5-11.0) 08/30/18 06:24 RBC 3.05 M/mm3 (3.65-5.03) L 08/30/18 06:24 Hgb 9.6 gm/dl (10.1-14.3) L 08/30/18 06:24 Hct 28.5 % (30.3-42.9) L 08/30/18 06:24 MCV 94 fl (79-97) 08/30/18 06:24 MCH 32 pg (28-32) 08/30/18 06:24 MCHC 34 % (30-34) 08/30/18 06:24 RDW 15.5 % (13.2-15.2) H 08/30/18 06:24 Plt Count 366 K/mm3 (140-440) 08/30/18 06:24 Lymph % (Auto) 18.2 % (13.4-35.0) 08/30/18 06:24 [place] % (Auto) 7.0 % (0.0-7.3) 08/30/18 06:24 Eos % (Auto) 1.3 % (0.0-4.3) 08/30/18 06:24 Baso % (Auto) 0.4 % (0.0-1.8) 08/30/18 06:24 Lymph # 1.9 K/mm3 (1.2-5.4) 08/30/18 06:24 [place] # 0.7 K/mm3 (0.0-0.8) 08/30/18 06:24 Eos # 0.1 K/mm3 (0.0-0.4) 08/30/18 06:24 Baso # 0.0 K/mm3 (0.0-0.1) 08/30/18 06:24 Seg Neutrophils % 73.1 % (40.0-70.0) H 08/30/18 06:24 Seg Neutrophils # 7.6 K/mm3 (1.8-7.7) 08/30/18 06:24 Sodium 138 mmol/L (137-145) 08/29/18 12:37 Potassium 4.9 mmol/L (3.6-5.0) 08/29/18 12:37 Chloride 108.2 mmol/L (98-107) H 08/29/18 12:37 Carbon Dioxide 19 mmol/L (22-30) L 08/29/18 12:37 Anion Gap 16 mmol/L 08/29/18 12:37 BUN 53 mg/dL (7-17) H 08/29/18 12:37 Creatinine 3.2 mg/dL (0.7-1.2) H 08/29/18 12:37 Estimated GFR 14 ml/min 08/29/18 12:37 BUN/Creatinine Ratio 17 % 08/29/18 12:37 Glucose 146 mg/dL (65-100) H 08/29/18 12:37 POC Glucose 186 (70-105) H 08/30/18 12:11 Calcium 7.2 mg/dL (8.4-10.2) L 08/29/18 12:37 Magnesium 2.50 mg/dL (1.7-2.3) H 08/28/18 05:21 Total Bilirubin 0.20 mg/dL (0.1-1.2) 08/26/18 21:13 AST 16 units/L (5-40) 08/26/18 21:13 ALT 17 units/L (7-56) 08/26/18 21:13 Alkaline Phosphatase 136 units/L (35-129) H 08/26/18 21:13 Total Creatine Kinase 37 units/L (30-135) 08/27/18 06:03 CK-MB (CK-2) 1.5 ng/mL (0.0-4.0) 08/27/18 06:03 CK-MB (CK-2) Rel Index 4.0 (0-4) 08/27/18 06:03 Troponin T < 0.010 ng/mL (0.00-0.029) 08/27/18 06:03 NT-Pro-B Natriuret Pep 3846 pg/mL (0-900) H 08/26/18 21:13 Total Protein 7.0 g/dL (6.3-8.2) 08/26/18 21:13 Albumin 2.9 g/dL (3.9-5) L 08/26/18 21:13 Albumin/Globulin Ratio 0.7 % 08/26/18 21:13 Urine Color Yellow (Yellow) 08/30/18 05:30 Urine Turbidity Clear (Clear) 08/30/18 05:30 Urine pH 6.0 (5.0-7.0) 08/30/18 05:30 Ur Specific [place] 1.013 (1.003-1.030) 08/30/18 05:30 Urine Protein >500 mg/dL (Negative) 08/30/18 05:30 Urine Glucose (UA) Neg mg/dL (Negative) 08/30/18 05:30 Urine Ketones Neg mg/dL (Negative) 08/30/18 05:30 Urine Blood Neg (Negative) 08/30/18 05:30 Urine Nitrite Neg (Negative) 08/30/18 05:30 Urine Bilirubin Neg (Negative) 08/30/18 05:30 Urine Urobilinogen < 2.0 mg/dL (<2.0) 08/30/18 05:30 Ur Leukocyte Esterase Neg (Negative) 08/30/18 05:30 Urine WBC (Auto) 1.0 /HPF (0.0-6.0) 08/30/18 05:30 Urine RBC (Auto) < 1.0 /HPF (0.0-6.0) 08/30/18 05:30 U Epithel Cells (Auto) < 1.0 /HPF (0-13.0) 08/30/18 05:30 Urine Bacteria (Auto) 1+ /HPF (Negative) 08/27/18 22:20 Urine Mucus Few /HPF 08/30/18 05:30 Urine Creatinine 79.3 mg/dL (0.1-20.0) H 08/27/18 22:20 Urine Total Protein 424 mg/dL (5-11.8) H 08/27/18 22:20
--- NOTE | 2018-08-30 19:01 | Ultrasound Report ---
FINAL REPORT EXAM: US RENAL BILAT HISTORY: acute kidney injury TECHNIQUE: Ultrasound of the kidneys PRIORS: Ultrasound kidneys 08/19/2018 FINDINGS: Examination of the kidneys demonstrates both to be normal in size and have normal cortical thickness. Echogenicity bilaterally is increased suggesting chronic medical renal disease. The right and left k idneys measure 9.4 cm and 10.1 cm in craniocaudal length, respectively. No evidence for calculi, hydr onephrosis, or solid mass is seen in either kidney. On the right, in the lower pole, there is a 2.3 x 1.3 x 1.2 cm exophytic cyst (previously 1.9 x 1.6 x 1.5 cm). Measurements are minimally larger but visually, this appears stable. In the midpole on the right, there is a 5 mm echogenic shadowing nonobstructing calculus, unchanged. On the left, there is an exophytic 2.4 x 1.8 x 2.2 cm cyst which was not seen previously. This may hernandez ve been previously obscured by J-stent bowel gas. The urinary bladder shows no intraluminal abnormality or wall thickening. IMPRESSION: 1. Increased echogenicity bilaterally suggesting chronic medical renal disease again noted 2. Nonobstructing calculus in the right kidney, stable 3. Exophytic cyst in the lower pole right kidney, minimally larger. The appearance of this otherwise appears stable 4. Exophytic cyst in the lower pole left kidney, not seen previously. This may have been previously o bscured by adjacent bowel gas.
[2018-08-30 19:08] LABS: Calcium 7.8 mg/dL (8.4-10.2)
[2018-08-31] MEDS: CATAPRES PO SCH ×3 (00:51→17:35)
[2018-08-31] MEDS: HumuLIN R SUB-Q SCH ×5 (00:51→22:13)
[2018-08-31] MEDS: PROVENTIL IH PRN ×2 (02:37→16:56)
[2018-08-31] MEDS: APRESOLINE PO SCH ×3 (06:40→22:13)
[2018-08-31 06:52] LABS: Hematocrit 28.9 % (30.3-42.9); Hemoglobin 9.8 gm/dl (10.1-14.3); Mean Corpuscular HGB Conc 34 % (30-34); Mean Corpuscular Volume 94 fl (79-97); Platelet Count 399 K/mm3 (140-440); Red Blood Count 3.08 M/mm3 (3.65-5.03); Red Cell Distribution Width 15.2 % (13.2-15.2)
[2018-08-31 07:03] LABS: Calcium 7.7 mg/dL (8.4-10.2)
[2018-08-31] MEDS: LOPRESSOR PO SCH ×2 (09:34→23:13)
[2018-08-31] MEDS: IMDUR PO SCH (09:35)
[2018-08-31] MEDS: HEPARIN SUB-Q SCH (09:36)
[2018-08-31] MEDS: NORVASC PO SCH (09:36)
[2018-08-31] MEDS: LEVAQUIN 250MG/50ML 250 MG/50 ML BAG IV SCH (09:37)
--- NOTE | 2018-08-31 10:50 | Progress Note ---
Assessment and Plan She appears to be clinically improving from a cardiac standpoint. Cont present cardiac management. The patient has been seen in conjunction with Dr. Kate who agrees with the assessment and plan of care. - Patient Problems (1) Acute heart failure with preserved ejection fraction Current Visit: Yes Status: Chronic (2) Moderate aortic stenosis Current Visit: Yes Status: Chronic (3) Mild aortic regurgitation Current Visit: Yes Status: Chronic (4) Moderate mitral regurgitation Current Visit: Yes Status: Chronic (5) ARF (acute renal failure) Current Visit: Yes Status: Acute Qualifiers: Acute renal failure type: with acute tubular necrosis Qualified Code(s): N17.0 - Acute kidney failure with tubular necrosis (6) Accelerated HTN Current Visit: Yes Status: Acute (7) Diabetes Current Visit: Yes Status: Chronic Subjective Date of service: 08/31/18 Principal diagnosis: HF Interval history: pt resting in bed, talking, no apparent distress. at bedside. Objective Last Vital Signs Temp 98.0 F 08/31/18 04:55 Pulse 70 08/31/18 09:36 Resp 18 08/31/18 04:55 BP 177/59 08/31/18 09:36 Pulse Ox 96 08/31/18 09:56 - Physical Examination General: No Apparent Distress HEENT: Positive: PERRL, Normocephaly, Mucus Membranes Moist Neck: Positive: neck supple, trachea midline Cardiac: Positive: Reg Rate and Rhythm, S1/S2 Lungs: Positive: Decreased Breath Sounds Neuro: Positive: Grossly Intact Abdomen: Negative: Tender Skin: Negative: Rash, Wound Musculoskeletal: No Pain Extremities: Absent: edema - Labs and Meds CBC 08/31/18 Range/Units 05:33 WBC 9.9 (4.5-11.0) K/mm3 RBC 3.08 L (3.65-5.03) M/mm3 Hgb 9.8 L (10.1-14.3) gm/dl Hct 28.9 L (30.3-42.9) % Plt Count 399 (140-440) K/mm3 Comprehensive Metabolic Panel 08/30/18 08/31/18 Range/Units 18:17 05:33 Sodium 138 140 (137-145) mmol/L Potassium 5.1 H 4.8 (3.6-5.0) mmol/L Chloride 105.1 107.9 H (98-107) mmol/L Carbon Dioxide 20 L 20 L (22-30) mmol/L BUN 53 H 50 H (7-17) mg/dL Creatinine 2.7 H 2.8 H (0.7-1.2) mg/dL Glucose 185 H 111 H (65-100) mg/dL Calcium 7.8 L 7.7 L (8.4-10.2) mg/dL - Imaging and Cardiology EKG: report reviewed, image reviewed Echo: report reviewed (08/18/2018: EF 55-60%, mild AR, pseudonormalization, mod ([place] 0.85, mean gradient 23mmHg), mild AR, mod MR, RVSP 35-40mmHg. ) - Telemetry EKG Rhythm: Sinus Rhythm - Allied health notes Allied health notes reviewed: nursing
--- NOTE | 2018-08-31 12:43 | Progress Note ---
Assessment and Plan - Patient Problems (1) Acute kidney failure Current Visit: Yes Status: Acute Plan to address problem: Renal function panel overall stable. Renal ultrasound noted without any acute abnormalities. Likely evidence of chronic kidney disease. From a renal standpoint patient is stable to be discharge and needs to follow up with us in 2 weeks post discharge. (2) Chronic kidney disease, stage 4 (severe) Current Visit: Yes Status: Acute Plan to address problem: Likely in the setting of hypertension, diabetes, underlying chronic diastolic heart failure. Unsure if she is presenting with an acute CHF exacerbation at this time. BMP noted with some elevation. Chest x-ray was negative without any significant evidence of pulmonary edema. We'll continue to monitor her renal function closely. We'll need to ensure avoidance of any nephrotoxins. (3) Acute heart failure with preserved ejection fraction Current Visit: No Status: Chronic Plan to address problem: Would recommend restarting Lasix at 40 mg by mouth once a day and to follow up with us in the clinic for further evaluation. She is also to follow-up with cardiology. (4) Hypertensive chronic kidney disease with stage 1 through stage 4 chronic kidney disease, or unspecified chronic kidney disease Current Visit: Yes Status: Chronic Plan to address problem: We will continue to monitor her current regimen. Continue to hold on JORDANA inhibitor/ARB secondary to unstable renal function. Can increase hydralazine to 100 mg 3 times a day if need be for improved blood pressure control. (5) Type 2 diabetes mellitus with diabetic chronic kidney disease Current Visit: Yes Status: Acute Plan to address problem: Diabetes management per primary team. Subjective Date of service: 08/31/18 Principal diagnosis: HF Interval history: No acute issues overnight. She seems to be doing well this morning. Cardiology evaluation noted. Objective - Vital Signs Vital signs: Vital Signs - 12hr 08/31/18 08/31/18 08/31/18 02:00 02:38 02:53 Temperature 97.5 F L Pulse Rate 63 Pulse Rate [ 64 66 Anterior Bilateral Throughout] Respiratory 26 H Rate Respiratory 24 24 Rate [Anterior Bilateral Throughout] Blood Pressure 154/59 O2 Sat by Pulse 92 Oximetry 08/31/18 08/31/18 08/31/18 04:55 06:40 09:34 Temperature 98.0 F Pulse Rate 64 64 70 Pulse Rate [ Anterior Bilateral Throughout] Respiratory 18 Rate Respiratory Rate [Anterior Bilateral Throughout] Blood Pressure 161/57 161/57 177/59 O2 Sat by Pulse 96 Oximetry 08/31/18 08/31/18 08/31/18 09:35 09:36 09:56 Temperature Pulse Rate 70 70 Pulse Rate [ Anterior Bilateral Throughout] Respiratory Rate Respiratory Rate [Anterior Bilateral Throughout] Blood Pressure 177/59 177/59 O2 Sat by Pulse 96 Oximetry - General Appearance General appearance: well-developed, well-nourished, appears stated age EENT: ATNC, PERRL Neck: no thyromegaly Respiratory: Present: Wheezes Cardiology: regular, S1S2 Gastrointestinal: normal, normoactive bowel sounds Integumentary: no rash, warm and dry Neurologic: no focal deficit, no asterixis Musculoskeletal: other (-edema) Psychiatric: mood/affect appropriate, cooperative - Lab 08/31/18 05:33 08/31/18 05:33 Most recent lab results Calcium 7.7 mg/dL (8.4-10.2) L 08/31/18 05:33 Magnesium 2.50 mg/dL (1.7-2.3) H 08/28/18 05:21 Urine Creatinine 79.3 mg/dL (0.1-20.0) H 08/27/18 22:20 Urine Total Protein 424 mg/dL (5-11.8) H 08/27/18 22:20 - Allied health notes Allied health notes reviewed: nursing Medications & Allergies - Medications Allergies/Adverse Reactions: Allergies No Known Allergies Allergy (Unverified 11/09/13 09:52) Home Medications: Home Medications Medication Instructions Recorded Confirmed Last Taken Type Furosemide [Lasix] 20 mg PO BID #60 tablet 08/24/18 08/26/18 Unknown Rx Metoprolol [Lopressor TAB] 75 mg PO BID #60 tablet 08/24/18 08/26/18 Unknown Rx amLODIPine [Norvasc] 10 mg PO DAILY #30 tablet 08/24/18 08/26/18 Unknown Rx cloNIDine [Catapres] 0.1 mg PO BID #60 tablet 08/24/18 08/26/18 Unknown Rx glipiZIDE [Glucotrol] 10 mg PO BID #60 tablet 08/24/18 08/26/18 Unknown Rx hydrALAZINE [Apresoline TAB] 50 mg PO Q8HR #90 tablet 08/24/18 08/26/18 Unknown Rx Active Medications: Generic Name Dose Route Start Last Admin Trade Name Beanq PRN Reason Stop Dose Admin Acetaminophen 650 mg 08/26/18 23:46 08/27/18 14:43 Tylenol PO 650 mg Q4H PRN Administration Fever >101 Albuterol 2.5 mg 08/26/18 23:46 08/31/18 02:37 Proventil IH 2.5 mg Q6HRT PRN Administration Shortness Of Breath Amlodipine Besylate 10 mg 08/27/18 10:00 08/31/18 09:36 Norvasc PO 10 mg DAILY ANAHY Administration Clonidine HCl 0.1 mg 08/27/18 08:00 08/31/18 09:35 Catapres PO 0.1 mg BID@0800,1700 [facility] Administration Dextrose 50 ml 08/26/18 23:42 D50w (25gm) Syringe IV PRN PRN Hypoglycemia Heparin Sodium (Porcine) 5,000 unit 08/27/18 13:00 08/31/18 09:36 Heparin SUB-Q 5,000 unit Q12HR ANAHY Administration Hydralazine HCl 50 mg 08/27/18 06:00 08/31/18 06:40 Apresoline PO Not Given Q8HR ANAHY Levofloxacin/Dextrose 250 mg in 50 mls @ 50 mls/hr 08/29/18 10:00 08/31/18 09:37 Levaquin 250mg/50ml IV 50 mls/hr Q24HR ANAHY Administration Protocol Insulin Human Regular 0 units 08/27/18 07:30 08/31/18 08:27 Humulin R SUB-Q Not Given [facility] Protocol Insulin Human Regular 0 units 08/27/18 22:00 08/30/18 22:44 Humulin R SUB-Q 1 units QHS [facility] Administration Protocol Isosorbide Mononitrate 30 mg 08/27/18 13:00 08/31/18 09:35 Imdur PO 30 mg BID ANAHY Administration Metoprolol Tartrate 100 mg 08/28/18 14:03 08/31/18 09:34 Lopressor PO 100 mg BID ANAHY Administration Ondansetron HCl 4 mg 08/26/18 23:46 08/29/18 03:28 Zofran IV 4 mg Q8H PRN Administration Nausea And Vomiting
--- NOTE | 2018-08-31 17:16 | Progress Note ---
Assessment and Plan Assessment and plan: Patient is a 83-year-old female with history of Obesity, HTN, DM type 2 and h/o DVT not on anticoagulation, CHF with diastolic dysfunction, on 2 L home O2 who was discharged from this hospital 2 days prior to this admission during which she was admitted for CHF exacerbation and chronic kidney disease, she again presented on 08/27/18 with complaint of shortness of breath. * Radiological data: Chest x-ray: Mild scattering, atelectasis within the left mid lung field with no acute pulmonary findings Acute on chronic hypoxic respiratory failure, present on admission with bilateral pleural effusion, treat with lasix but renal function worsened, no lasix stopped and hydrating carefully: treat with O2 Acute on chronic diastolic heart failure with preserved EF and diastolic dysfunction, stable now: Cardiology evaluated Hypertension, accelerated: low salt diet, and treat with antihypertensives Poorly controlled diabetes mellitus type 2: SSI Hyperkalemia, due to worsening renal function: monitor bmp closely [place] on Chronic kidney disease, vasomotor nephropathy, poa: Renal is following renal u/s pending History of moderate aortic stenosis and moderate mitral regurgitation: Cardiology following Leukocytosis, most likely reactive etiology - spiked low grade temp 100.2F isolated: follow blood culture, negative so far, on empiric Levaquin Aphasia, most likely chronic from old stroke says stopped speaking around 3 am tuesday morning, code stroke called, Neurology saw==> no acute stroke. This morning, pt had blank staring prolonged episode with left sided weakness, MRI brain ordered which confirmed no acute stroke. Disposition: continue inpatient care, anticipate home tomorrow, Nephrology cleared, renal u/s reviewed. Home when 3 liters O2 setup. History Interval history: Patient was seen and examined. Follow-up on current diagnosis. Overnight uneventful. Patient denies any chest pain, shortness breath, nausea/vomiting or severe headaches. Imaging, nursing note, chart, labs and old chart reviewed. Discussed with patient. Aditya called but family/ called laura Johnson to demetrioret. says stopped speaking around 3 am tuesday morning, code stroke called, Neurology saw==> no acute stroke. This morning, pt had blank staring prolonged episode with left sided weakness, MRI brain ordered which confirmed no acute stroke. EEG ordered and is pending. Renal ultrasound pending Hospitalist Physical - Physical exam Narrative exam: Gen: ill appearing, NAD, Awake, Alert, nonverbal HEENT: NCAT, facial asymmetry Neck: supple, no adenopathy, no thyromegaly, no JVD CVS/Heart: RRR, normal S1S2, pulses present bilaterally Chest/Lungs: diminished bs bilateral, Symmetrical chest expansion, good air entry bilaterally GI/Abdomen: soft, NTND, good bowel sounds, no guarding or rebound /Bladder: no suprapubic tenderness, no CVA or paraspinal tenderness Extermity/Skin: no c/c/e, no obvious rash MSK: FROM x 4, weaker bilateral Neuro: CN 2-12 grossly intact, aphasia with facial asymmetry Psych: calm - Constitutional Vitals: Temp Pulse Resp BP Pulse Ox 98.1 F 76 18 151/61 95 08/31/18 12:14 08/31/18 17:11 08/31/18 17:11 08/31/18 15:09 08/31/18 12:14 Results - Labs CBC & Chem 7: 08/31/18 05:33 08/31/18 05:33 Labs: Laboratory Last Values WBC 9.9 K/mm3 (4.5-11.0) 08/31/18 05:33 RBC 3.08 M/mm3 (3.65-5.03) L 08/31/18 05:33 Hgb 9.8 gm/dl (10.1-14.3) L 08/31/18 05:33 Hct 28.9 % (30.3-42.9) L 08/31/18 05:33 MCV 94 fl (79-97) 08/31/18 05:33 MCH 32 pg (28-32) 08/31/18 05:33 MCHC 34 % (30-34) 08/31/18 05:33 RDW 15.2 % (13.2-15.2) 08/31/18 05:33 Plt Count 399 K/mm3 (140-440) 08/31/18 05:33 Lymph % (Auto) 18.2 % (13.4-35.0) 08/30/18 06:24 [place] % (Auto) 7.0 % (0.0-7.3) 08/30/18 06:24 Eos % (Auto) 1.3 % (0.0-4.3) 08/30/18 06:24 Baso % (Auto) 0.4 % (0.0-1.8) 08/30/18 06:24 Lymph # 1.9 K/mm3 (1.2-5.4) 08/30/18 06:24 [place] # 0.7 K/mm3 (0.0-0.8) 08/30/18 06:24 Eos # 0.1 K/mm3 (0.0-0.4) 08/30/18 06:24 Baso # 0.0 K/mm3 (0.0-0.1) 08/30/18 06:24 Seg Neutrophils % 73.1 % (40.0-70.0) H 08/30/18 06:24 Seg Neutrophils # 7.6 K/mm3 (1.8-7.7) 08/30/18 06:24 Sodium 140 mmol/L (137-145) 08/31/18 05:33 Potassium 4.8 mmol/L (3.6-5.0) 08/31/18 05:33 Chloride 107.9 mmol/L (98-107) H 08/31/18 05:33 Carbon Dioxide 20 mmol/L (22-30) L 08/31/18 05:33 Anion Gap 17 mmol/L 08/31/18 05:33 BUN 50 mg/dL (7-17) H 08/31/18 05:33 Creatinine 2.8 mg/dL (0.7-1.2) H 08/31/18 05:33 Estimated GFR 16 ml/min 08/31/18 05:33 BUN/Creatinine Ratio 18 % 08/31/18 05:33 Glucose 111 mg/dL (65-100) H 08/31/18 05:33 POC Glucose 176 (70-105) H 08/31/18 15:54 Calcium 7.7 mg/dL (8.4-10.2) L 08/31/18 05:33 Magnesium 2.50 mg/dL (1.7-2.3) H 08/28/18 05:21 Total Bilirubin 0.20 mg/dL (0.1-1.2) 08/26/18 21:13 AST 16 units/L (5-40) 08/26/18 21:13 ALT 17 units/L (7-56) 08/26/18 21:13 Alkaline Phosphatase 136 units/L (35-129) H 08/26/18 21:13 Total Creatine Kinase 37 units/L (30-135) 08/27/18 06:03 CK-MB (CK-2) 1.5 ng/mL (0.0-4.0) 08/27/18 06:03 CK-MB (CK-2) Rel Index 4.0 (0-4) 08/27/18 06:03 Troponin T < 0.010 ng/mL (0.00-0.029) 08/27/18 06:03 NT-Pro-B Natriuret Pep 3846 pg/mL (0-900) H 08/26/18 21:13 Total Protein 7.0 g/dL (6.3-8.2) 08/26/18 21:13 Albumin 2.9 g/dL (3.9-5) L 08/26/18 21:13 Albumin/Globulin Ratio 0.7 % 08/26/18 21:13 Urine Color Yellow (Yellow) 08/30/18 05:30 Urine Turbidity Clear (Clear) 08/30/18 05:30 Urine pH 6.0 (5.0-7.0) 08/30/18 05:30 Ur Specific [place] 1.013 (1.003-1.030) 08/30/18 05:30 Urine Protein >500 mg/dL (Negative) 08/30/18 05:30 Urine Glucose (UA) Neg mg/dL (Negative) 08/30/18 05:30 Urine Ketones Neg mg/dL (Negative) 08/30/18 05:30 Urine Blood Neg (Negative) 08/30/18 05:30 Urine Nitrite Neg (Negative) 08/30/18 05:30 Urine Bilirubin Neg (Negative) 08/30/18 05:30 Urine Urobilinogen < 2.0 mg/dL (<2.0) 08/30/18 05:30 Ur Leukocyte Esterase Neg (Negative) 08/30/18 05:30 Urine WBC (Auto) 1.0 /HPF (0.0-6.0) 08/30/18 05:30 Urine RBC (Auto) < 1.0 /HPF (0.0-6.0) 08/30/18 05:30 U Epithel Cells (Auto) < 1.0 /HPF (0-13.0) 08/30/18 05:30 Urine Bacteria (Auto) 1+ /HPF (Negative) 08/27/18 22:20 Urine Mucus Few /HPF 08/30/18 05:30 Urine Creatinine 79.3 mg/dL (0.1-20.0) H 08/27/18 22:20 Urine Total Protein 424 mg/dL (5-11.8) H 08/27/18 22:20
[2018-09-01] MEDS: HEPARIN SUB-Q SCH ×3 (00:28→21:09)
[2018-09-01] MEDS: IMDUR PO SCH ×3 (00:28→21:10)
[2018-09-01] MEDS: PROVENTIL IH PRN ×2 (00:43→16:51)
[2018-09-01] MEDS: APRESOLINE PO SCH ×3 (06:08→21:09)
[2018-09-01] MEDS: HumuLIN R SUB-Q SCH ×4 (07:56→21:09)
[2018-09-01] MEDS: CATAPRES PO SCH ×3 (08:17→18:05)
--- NOTE | 2018-09-01 09:46 | CT Calcium Scoring Report ---
Coronary Calcium Score Date of service: 09/01/18 Procedure: High-resolution computed tomographic imaging of the chest was performed on08/26/18 with particular attention paid to the coronary arteries. Images from the examination were analyzed for the presence and extent of coronary artery calcification, using coronary calcium quantification software. The patient tolerated the procedure well and there were no complications. The results of the coronary calcification analysis are provided below. The patient scores are compared with published data related to scores for people of a similar age and the same gender. - Findings Left Anterior Descending Artery: 225.11 Right Coronary Artery(RCA): 21.26 Total Agatson Score: 246.71 Percentile Ranking: >75 Findings: aortic valve calcium score: 447.23
[2018-09-01] MEDS: LEVAQUIN 250MG/50ML 250 MG/50 ML BAG IV SCH (09:58)
--- NOTE | 2018-09-01 10:00 | Progress Note ---
Assessment and Plan Currently stable cardiac status. Pt may discharge home from cardiology standpoint. No ACEI/ARB in setting of renal insufficiency. If okay per nephrology, recommend PO lasix 40mg daily. Recommend pt follow up in our office with Dr. Mari Meyers within 3-5 days of hospital discharge ([phone]). The patient has been seen in conjunction with Dr. Kate who agrees with the assessment and plan of care. - Patient Problems (1) Acute heart failure with preserved ejection fraction Current Visit: Yes Status: Chronic (2) Moderate aortic stenosis Current Visit: Yes Status: Chronic (3) Mild aortic regurgitation Current Visit: Yes Status: Chronic (4) Moderate mitral regurgitation Current Visit: Yes Status: Chronic (5) ARF (acute renal failure) Current Visit: Yes Status: Acute Qualifiers: Acute renal failure type: with acute tubular necrosis Qualified Code(s): N17.0 - Acute kidney failure with tubular necrosis (6) Accelerated HTN Current Visit: Yes Status: Acute (7) Diabetes Current Visit: Yes Status: Chronic Subjective Date of service: 09/01/18 Principal diagnosis: HF Interval history: pt resting in bed, talking, no apparent distress. at bedside. Objective Last Vital Signs Temp 97.9 F 09/01/18 07:39 Pulse 71 09/01/18 08:17 Resp 18 09/01/18 07:39 BP 157/58 09/01/18 08:17 Pulse Ox 95 09/01/18 07:39 - Physical Examination General: No Apparent Distress HEENT: Positive: PERRL, Normocephaly, Mucus Membranes Moist Neck: Positive: neck supple, trachea midline Cardiac: Positive: Reg Rate and Rhythm, S1/S2, Systolic Murmur Lungs: Positive: Decreased Breath Sounds Neuro: Positive: Grossly Intact Abdomen: Negative: Tender Skin: Negative: Rash, Wound Musculoskeletal: No Pain Extremities: Absent: edema - Imaging and Cardiology EKG: report reviewed, image reviewed Echo: report reviewed (08/18/2018: EF 55-60%, mild AR, pseudonormalization, mod ([place]EL[place] 0.85, mean gradient 23mmHg), mild AR, mod MR, RVSP 35-40mmHg. ) - Allied health notes Allied health notes reviewed: nursing
[2018-09-01] MEDS: LOPRESSOR PO SCH ×2 (10:08→21:10)
[2018-09-01] MEDS: NORVASC PO SCH (10:09)
--- NOTE | 2018-09-01 17:28 | Progress Note ---
Assessment and Plan - Patient Problems (1) Acute kidney failure Current Visit: Yes Status: Acute Plan to address problem: Acute kidney injury probably Pre-renal azotemia secondary to acute on chronic cardiorenal syndrome versus diuretics. Kidney function test not done today. Unfortunately need to restart diuretics giving patient's symptoms and exam. Restart gentle diuretics and follow-up electrolytes and renal function. I emphasized the importance of adherence to sodium and fluid restriction to patient and family at bedside (2) Acute heart failure with preserved ejection fraction Current Visit: No Status: Chronic Plan to address problem: Restart diuretic. Follow-up electrolytes and renal function. JORDANA inhibitor/angiotensin receptor starla on hold due to worsening kidney function (3) Hypertensive chronic kidney disease with stage 1 through stage 4 chronic kidney disease, or unspecified chronic kidney disease Current Visit: Yes Status: Chronic Plan to address problem: Antihypertensive medications adjusted and blood pressure is improving. Follow- up blood pressure and adjusted medications (4) Chronic kidney disease, stage 4 (severe) Current Visit: Yes Status: Acute Plan to address problem: Baseline stage 3/4 chronically disease secondary to diabetic nephropathy/hypertensive nephrosclerosis with possible contribution from chronic cardiorenal syndrome. Emphasized the importance of follow-up as an outpatient to try to delay progression of chronic kidney disease. (5) Type 2 diabetes mellitus with diabetic chronic kidney disease Current Visit: Yes Status: Acute Plan to address problem: Emphasized blood sugar control to delay progression of chronic kidney disease. Blood sugar management by primary attending Subjective Date of service: 09/01/18 Principal diagnosis: acute kidney injury, chronic kidney disease, acute heart failure Interval history: Patient seen lying in bed. at bedside. Complains of shortness of breath worse after she takes her medications. Objective - Exam Narrative Exam: Elderly female lying in bed in no acute distress HEENT: NCAT, pink oral mucous membrane Neck: Supple, no venous distention CVS: S1S2 RRR with no murmur, rub or gallop Chest: Diminished breath sounds with rales present in the lower zones Abdomen: Protuberant, soft, nontender, no organomegaly, bowel sounds are present Extremities: 2+ edema thighs and legs bilaterally Skin is warm and dry, Genitourinary deferred Neuro: Awake, alert no focal deficits - Vital Signs Vital signs: Vital Signs - 12hr 09/01/18 09/01/18 09/01/18 07:39 08:17 10:00 Temperature 97.9 F Pulse Rate 71 71 71 Pulse Rate [ Anterior Bilateral Throughout] Respiratory 18 22 Rate Respiratory Rate [Anterior Bilateral Throughout] Blood Pressure 157/58 157/58 Blood Pressure [Left] O2 Sat by Pulse 95 97 Oximetry 09/01/18 09/01/18 09/01/18 10:08 10:09 12:56 Temperature Pulse Rate 72 72 65 Pulse Rate [ Anterior Bilateral Throughout] Respiratory 20 Rate Respiratory Rate [Anterior Bilateral Throughout] Blood Pressure 159/57 159/57 Blood Pressure 153/57 [Left] O2 Sat by Pulse 97 Oximetry 09/01/18 09/01/18 09/01/18 15:19 15:39 16:51 Temperature 98.2 F Pulse Rate 72 67 Pulse Rate [ 68 Anterior Bilateral Throughout] Respiratory 20 Rate Respiratory 22 Rate [Anterior Bilateral Throughout] Blood Pressure 154/57 139/55 Blood Pressure [Left] O2 Sat by Pulse 95 Oximetry 09/01/18 17:02 Temperature Pulse Rate Pulse Rate [ 67 Anterior Bilateral Throughout] Respiratory Rate Respiratory 20 Rate [Anterior Bilateral Throughout] Blood Pressure Blood Pressure [Left] O2 Sat by Pulse Oximetry - Lab 08/31/18 05:33 08/31/18 05:33 Most recent lab results Calcium 7.7 mg/dL (8.4-10.2) L 08/31/18 05:33 Magnesium 2.50 mg/dL (1.7-2.3) H 08/28/18 05:21 Urine Creatinine 79.3 mg/dL (0.1-20.0) H 08/27/18 22:20 Urine Total Protein 424 mg/dL (5-11.8) H 08/27/18 22:20 Medications & Allergies - Medications Allergies/Adverse Reactions: Allergies No Known Allergies Allergy (Unverified 11/09/13 09:52) Home Medications: Home Medications Medication Instructions Recorded Confirmed Last Taken Type Furosemide [Lasix] 20 mg PO BID #60 tablet 08/24/18 08/26/18 Unknown Rx Metoprolol [Lopressor TAB] 75 mg PO BID #60 tablet 08/24/18 08/26/18 Unknown Rx amLODIPine [Norvasc] 10 mg PO DAILY #30 tablet 08/24/18 08/26/18 Unknown Rx cloNIDine [Catapres] 0.1 mg PO BID #60 tablet 02/21/19 02/23/19 Unknown Rx glipiZIDE [Glucotrol] 10 mg PO BID #60 tablet 08/24/18 08/26/18 Unknown Rx hydrALAZINE [Apresoline TAB] 50 mg PO Q8HR #90 tablet 08/24/18 08/26/18 Unknown Rx Active Medications: Generic Name Dose Route Start Last Admin Trade Name Freq PRN Reason Stop Dose Admin Acetaminophen 650 mg 08/26/18 23:46 08/27/18 14:43 Tylenol PO 650 mg Q4H PRN Administration Fever >101 Albuterol 2.5 mg 08/26/18 23:46 09/01/18 16:51 Proventil IH 2.5 mg Q6HRT PRN Administration Shortness Of Breath Amlodipine Besylate 10 mg 08/27/18 10:00 09/01/18 10:09 Norvasc PO 10 mg DAILY ANAHY Administration Clonidine HCl 0.1 mg 08/27/18 08:00 09/01/18 08:17 Catapres PO 0.1 mg BID@0800,1700 NAAHY Administration Dextrose 50 ml 08/26/18 23:42 D50w (25gm) Syringe IV PRN PRN Hypoglycemia Heparin Sodium (Porcine) 5,000 unit 08/27/18 13:00 09/01/18 10:09 Heparin SUB-Q 5,000 unit Q12HR ANAHY Administration Hydralazine HCl 50 mg 08/27/18 06:00 09/01/18 15:19 Apresoline PO 50 mg Q8HR ANAHY Administration Levofloxacin/Dextrose 250 mg in 50 mls @ 50 mls/hr 08/29/18 10:00 09/01/18 09:58 Levaquin 250mg/50ml IV 50 mls/hr Q24HR ANAHY Administration Protocol Insulin Human Regular 0 units 08/27/18 07:30 09/01/18 12:33 Humulin R SUB-Q Not Given AC ANAHY Protocol Insulin Human Regular 0 units 08/27/18 22:00 08/31/18 22:13 Humulin R SUB-Q 1 units QHS ANAHY Administration Protocol Isosorbide Mononitrate 30 mg 08/27/18 13:00 09/01/18 10:09 Imdur PO 30 mg BID ANAHY Administration Metoprolol Tartrate 100 mg 09/01/18 10:00 09/01/18 10:08 Lopressor PO 100 mg BID ANAHY Administration Ondansetron HCl 4 mg 08/26/18 23:46 08/29/18 03:28 Zofran IV 4 mg Q8H PRN Administration Nausea And Vomiting
[2018-09-01] MEDS: LASIX IV SCH (18:12)
--- NOTE | 2018-09-01 19:20 | XRay Report ---
PROCEDURE: XR CHEST 1V AP TECHNIQUE: Chest radiograph single view. HISTORY: shortness of breath FINDINGS: Single frontal view of the chest was acquired and compared to prior examination of August 23.. There is cardiomegaly. There is prominence of central pulmonary markings likely mild pulmonary edema, slightly improved. There is a left pleural effusion. There is left basilar consolidation atelectasis versus pneumonia, similar to prior exam. There is left midlung linear scar versus atelectasis. IMPRESSION: Mild pulmonary edema, slightly improved Left pleural effusion with left basilar consolidation atelectasis versus pneumonia, unchanged This document is electronically signed by Berlin Garcia MD., September 01 2018 07:17:57 PM ET
--- NOTE | 2018-09-01 20:57 | Progress Note ---
Assessment and Plan Assessment and plan: Patient is a 83-year-old female with history of Obesity, HTN, DM type 2 and h/o DVT not on anticoagulation, CHF with diastolic dysfunction, on 2 L home O2 who was discharged from this hospital 2 days prior to this admission during which she was admitted for CHF exacerbation and chronic kidney disease, she again presented on 08/27/18 with complaint of shortness of breath. * Radiological data: Chest x-ray: Mild scattering, atelectasis within the left mid lung field with no acute pulmonary findings Acute on chronic hypoxic respiratory failure, present on admission with bilateral pleural effusion, treat with lasix but renal function worsened, no lasix stopped and hydrating carefully: treat with O2 Acute on chronic diastolic heart failure with preserved EF and diastolic dysfunction, stable now: Cardiology evaluated Hypertension, accelerated: low salt diet, and treat with antihypertensives Poorly controlled diabetes mellitus type 2: SSI Hyperkalemia, due to worsening renal function: monitor bmp closely [place] on Chronic kidney disease, vasomotor nephropathy, poa: Renal is following renal u/s pending History of moderate aortic stenosis and moderate mitral regurgitation: Cardiology following Leukocytosis, most likely reactive etiology - spiked low grade temp 100.2F isolated: follow blood culture, negative so far, on empiric Levaquin Aphasia, 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 This morning, pt had blank staring prolonged episode with left sided weakness, MRI brain ordered which confirmed no acute stroke. Disposition: continue inpatient care, anticipate home today, Nephrology cleared, renal u/s reviewed. Home when 3 liters O2 setup. Family refusing recommended medical therapy, will try to discharge tomorrow History Interval history: Patient was seen and examined. Follow-up on current diagnosis. Overnight uneventful. Patient denies any chest pain, shortness breath, nausea/vomiting or severe headaches. Imaging, nursing note, chart, labs and old chart reviewed. Discussed with patient. Aditya called but family/ called laura leong. says stopped speaking around 3 am tuesday morning, code stroke called, Neurology saw==> no acute stroke. This morning, pt had blank staring prolonged episode with left sided weakness, MRI brain ordered which confirmed no acute stroke. EEG ordered and is pending. Renal ultrasound pending Hospitalist Physical - Physical exam Narrative exam: Gen: ill appearing, NAD, Awake, Alert, nonverbal HEENT: NCAT, facial asymmetry Neck: supple, no adenopathy, no thyromegaly, no JVD CVS/Heart: RRR, normal S1S2, pulses present bilaterally Chest/Lungs: diminished bs bilateral, Symmetrical chest expansion, good air entry bilaterally GI/Abdomen: soft, NTND, good bowel sounds, no guarding or rebound /Bladder: no suprapubic tenderness, no CVA or paraspinal tenderness Extermity/Skin: no c/c/e, no obvious rash MSK: FROM x 4, weaker bilateral Neuro: CN 2-12 grossly intact, aphasia with facial asymmetry Psych: calm - Constitutional Vitals: Temp Pulse Resp BP Pulse Ox 98.7 F 72 16 168/56 93 09/01/18 19:35 09/01/18 19:35 09/01/18 19:35 09/01/18 19:35 09/01/18 19:35 Results - Labs CBC & Chem 7: 08/31/18 05:33 08/31/18 05:33 Labs: Laboratory Last Values WBC 9.9 K/mm3 (4.5-11.0) 08/31/18 05:33 RBC 3.08 M/mm3 (3.65-5.03) L 08/31/18 05:33 Hgb 9.8 gm/dl (10.1-14.3) L 08/31/18 05:33 Hct 28.9 % (30.3-42.9) L 08/31/18 05:33 MCV 94 fl (79-97) 08/31/18 05:33 MCH 32 pg (28-32) 08/31/18 05:33 MCHC 34 % (30-34) 08/31/18 05:33 RDW 15.2 % (13.2-15.2) 08/31/18 05:33 Plt Count 399 K/mm3 (140-440) 08/31/18 05:33 Lymph % (Auto) 18.2 % (13.4-35.0) 08/30/18 06:24 [place] % (Auto) 7.0 % (0.0-7.3) 08/30/18 06:24 Eos % (Auto) 1.3 % (0.0-4.3) 08/30/18 06:24 Baso % (Auto) 0.4 % (0.0-1.8) 08/30/18 06:24 Lymph # 1.9 K/mm3 (1.2-5.4) 08/30/18 06:24 [place] # 0.7 K/mm3 (0.0-0.8) 08/30/18 06:24 Eos # 0.1 K/mm3 (0.0-0.4) 08/30/18 06:24 Baso # 0.0 K/mm3 (0.0-0.1) 08/30/18 06:24 Seg Neutrophils % 73.1 % (40.0-70.0) H 08/30/18 06:24 Seg Neutrophils # 7.6 K/mm3 (1.8-7.7) 08/30/18 06:24 Sodium 140 mmol/L (137-145) 08/31/18 05:33 Potassium 4.8 mmol/L (3.6-5.0) 08/31/18 05:33 Chloride 107.9 mmol/L (98-107) H 08/31/18 05:33 Carbon Dioxide 20 mmol/L (22-30) L 08/31/18 05:33 Anion Gap 17 mmol/L 08/31/18 05:33 BUN 50 mg/dL (7-17) H 08/31/18 05:33 Creatinine 2.8 mg/dL (0.7-1.2) H 08/31/18 05:33 Estimated GFR 16 ml/min 08/31/18 05:33 BUN/Creatinine Ratio 18 % 08/31/18 05:33 Glucose 111 mg/dL (65-100) H 08/31/18 05:33 POC Glucose 177 (70-105) H 09/01/18 15:40 Calcium 7.7 mg/dL (8.4-10.2) L 08/31/18 05:33 Magnesium 2.50 mg/dL (1.7-2.3) H 08/28/18 05:21 Total Bilirubin 0.20 mg/dL (0.1-1.2) 08/26/18 21:13 AST 16 units/L (5-40) 08/26/18 21:13 ALT 17 units/L (7-56) 08/26/18 21:13 Alkaline Phosphatase 136 units/L (35-129) H 08/26/18 21:13 Total Creatine Kinase 37 units/L (30-135) 08/27/18 06:03 CK-MB (CK-2) 1.5 ng/mL (0.0-4.0) 08/27/18 06:03 CK-MB (CK-2) Rel Index 4.0 (0-4) 08/27/18 06:03 Troponin T < 0.010 ng/mL (0.00-0.029) 08/27/18 06:03 NT-Pro-B Natriuret Pep 3846 pg/mL (0-900) H 08/26/18 21:13 Total Protein 7.0 g/dL (6.3-8.2) 08/26/18 21:13 Albumin 2.9 g/dL (3.9-5) L 08/26/18 21:13 Albumin/Globulin Ratio 0.7 % 08/26/18 21:13 Urine Color Yellow (Yellow) 08/30/18 05:30 Urine Turbidity Clear (Clear) 08/30/18 05:30 Urine pH 6.0 (5.0-7.0) 08/30/18 05:30 Ur Specific [place] 1.013 (1.003-1.030) 08/30/18 05:30 Urine Protein >500 mg/dL (Negative) 08/30/18 05:30 Urine Glucose (UA) Neg mg/dL (Negative) 08/30/18 05:30 Urine Ketones Neg mg/dL (Negative) 08/30/18 05:30 Urine Blood Neg (Negative) 08/30/18 05:30 Urine Nitrite Neg (Negative) 08/30/18 05:30 Urine Bilirubin Neg (Negative) 08/30/18 05:30 Urine Urobilinogen < 2.0 mg/dL (<2.0) 08/30/18 05:30 Ur Leukocyte Esterase Neg (Negative) 08/30/18 05:30 Urine WBC (Auto) 1.0 /HPF (0.0-6.0) 08/30/18 05:30 Urine RBC (Auto) < 1.0 /HPF (0.0-6.0) 08/30/18 05:30 U Epithel Cells (Auto) < 1.0 /HPF (0-13.0) 08/30/18 05:30 Urine Bacteria (Auto) 1+ /HPF (Negative) 08/27/18 22:20 Urine Mucus Few /HPF 08/30/18 05:30 Urine Creatinine 79.3 mg/dL (0.1-20.0) H 08/27/18 22:20 Urine Total Protein 424 mg/dL (5-11.8) H 08/27/18 22:20
[2018-09-02] MEDS: APRESOLINE PO SCH (05:37)
[2018-09-02] MEDS: LASIX IV SCH (05:37)
[2018-09-02] MEDS: PROVENTIL IH PRN (09:05)
[2018-09-02 09:07] VITALS: BP 166/58
[2018-09-02] MEDS: HumuLIN R SUB-Q SCH ×2 (10:00→12:00)
[2018-09-02] MEDS: LEVAQUIN 250MG/50ML 250 MG/50 ML BAG IV SCH (10:00)
[2018-09-02] MEDS: LOPRESSOR PO SCH (10:00)
[2018-09-02] MEDS: NORVASC PO SCH (10:00)
[2018-09-02] MEDS: HEPARIN SUB-Q SCH (10:00)
[2018-09-02] MEDS: IMDUR PO SCH (10:00)
[2018-09-02] MEDS: CATAPRES PO SCH (10:00)
--- NOTE | 2018-09-02 11:01 | Progress Note ---
Assessment and Plan Assessment and plan: Patient is a 83-year-old female with history of Obesity, HTN, DM type 2 and h/o DVT not on anticoagulation, CHF with diastolic dysfunction, on 2 L home O2 who was discharged from this hospital 2 days prior to this admission during which she was admitted for CHF exacerbation and chronic kidney disease, she again presented on 08/27/18 with complaint of shortness of breath. * Radiological data: Chest x-ray: Mild scattering, atelectasis within the left mid lung field with no acute pulmonary findings Acute on chronic hypoxic respiratory failure, present on admission with bilateral pleural effusion, treat with lasix but renal function worsened, no lasix stopped and hydrating carefully: treat with O2 Acute on chronic diastolic heart failure with preserved EF and diastolic dysfunction, stable now: Cardiology evaluated Hypertension, accelerated: low salt diet, and treat with antihypertensives Poorly controlled diabetes mellitus type 2: SSI Hyperkalemia, due to worsening renal function: monitor bmp closely [place] on Chronic kidney disease, vasomotor nephropathy, poa: Renal is following renal u/s pending History of moderate aortic stenosis and moderate mitral regurgitation: Cardiology following Leukocytosis, most likely reactive etiology - spiked low grade temp 100.2F isolated: follow blood culture, negative so far, on empiric Levaquin Aphasia, most likely chronic from old stroke says stopped speaking around 3 am Tuesday morning, code stroke called, Neurology saw==> no acute stroke. This morning, pt had blank staring prolonged episode with left sided weakness, MRI brain ordered which confirmed no acute stroke. Disposition: continue inpatient care, anticipate home today, Nephrology cleared, renal u/s reviewed. Home when 3 liters O2 setup. Family refusing recommended medical therapy, will try to discharge today once O2 from her home arrives History Interval history: Patient was seen and examined. Follow-up on current diagnosis. Overnight uneventful. Patient denies any chest pain, shortness breath, nausea/vomiting or severe headaches. Imaging, nursing note, chart, labs and old chart reviewed. Discussed with patient. Aditya used Hospitalist Physical - Physical exam Narrative exam: Gen: ill appearing, NAD, Awake, Alert, nonverbal HEENT: NCAT, facial asymmetry Neck: supple, no adenopathy, no thyromegaly, no JVD CVS/Heart: RRR, normal S1S2, pulses present bilaterally Chest/Lungs: diminished bs bilateral, Symmetrical chest expansion, good air entry bilaterally GI/Abdomen: soft, NTND, good bowel sounds, no guarding or rebound /Bladder: no suprapubic tenderness, no CVA or paraspinal tenderness Extermity/Skin: no c/c/e, no obvious rash MSK: FROM x 4, weaker bilateral Neuro: CN 2-12 grossly intact, aphasia with facial asymmetry Psych: calm - Constitutional Vitals: Temp Pulse Resp BP Pulse Ox 98.5 F 82 16 166/58 97 09/02/18 09:03 09/02/18 09:03 09/02/18 09:03 09/02/18 09:03 09/02/18 09:03 Results - Labs CBC & Chem 7: 08/31/18 05:33 08/31/18 05:33 Labs: Laboratory Last Values WBC 9.9 K/mm3 (4.5-11.0) 08/31/18 05:33 RBC 3.08 M/mm3 (3.65-5.03) L 08/31/18 05:33 Hgb 9.8 gm/dl (10.1-14.3) L 08/31/18 05:33 Hct 28.9 % (30.3-42.9) L 08/31/18 05:33 MCV 94 fl (79-97) 08/31/18 05:33 MCH 32 pg (28-32) 08/31/18 05:33 MCHC 34 % (30-34) 08/31/18 05:33 RDW 15.2 % (13.2-15.2) 08/31/18 05:33 Plt Count 399 K/mm3 (140-440) 08/31/18 05:33 Lymph % (Auto) 18.2 % (13.4-35.0) 08/30/18 06:24 [place] % (Auto) 7.0 % (0.0-7.3) 08/30/18 06:24 Eos % (Auto) 1.3 % (0.0-4.3) 08/30/18 06:24 Baso % (Auto) 0.4 % (0.0-1.8) 08/30/18 06:24 Lymph # 1.9 K/mm3 (1.2-5.4) 08/30/18 06:24 [place] # 0.7 K/mm3 (0.0-0.8) 08/30/18 06:24 Eos # 0.1 K/mm3 (0.0-0.4) 08/30/18 06:24 Baso # 0.0 K/mm3 (0.0-0.1) 08/30/18 06:24 Seg Neutrophils % 73.1 % (40.0-70.0) H 08/30/18 06:24 Seg Neutrophils # 7.6 K/mm3 (1.8-7.7) 08/30/18 06:24 Sodium 140 mmol/L (137-145) 08/31/18 05:33 Potassium 4.8 mmol/L (3.6-5.0) 08/31/18 05:33 Chloride 107.9 mmol/L (98-107) H 08/31/18 05:33 Carbon Dioxide 20 mmol/L (22-30) L 08/31/18 05:33 Anion Gap 17 mmol/L 08/31/18 05:33 BUN 50 mg/dL (7-17) H 08/31/18 05:33 Creatinine 2.8 mg/dL (0.7-1.2) H 08/31/18 05:33 Estimated GFR 16 ml/min 08/31/18 05:33 BUN/Creatinine Ratio 18 % 08/31/18 05:33 Glucose 111 mg/dL (65-100) H 08/31/18 05:33 POC Glucose 200 (70-105) H 09/02/18 09:05 Calcium 7.7 mg/dL (8.4-10.2) L 08/31/18 05:33 Magnesium 2.50 mg/dL (1.7-2.3) H 08/28/18 05:21 Total Bilirubin 0.20 mg/dL (0.1-1.2) 08/26/18 21:13 AST 16 units/L (5-40) 08/26/18 21:13 ALT 17 units/L (7-56) 08/26/18 21:13 Alkaline Phosphatase 136 units/L (35-129) H 08/26/18 21:13 Total Creatine Kinase 37 units/L (30-135) 08/27/18 06:03 CK-MB (CK-2) 1.5 ng/mL (0.0-4.0) 08/27/18 06:03 CK-MB (CK-2) Rel Index 4.0 (0-4) 08/27/18 06:03 Troponin T < 0.010 ng/mL (0.00-0.029) 08/27/18 06:03 NT-Pro-B Natriuret Pep 3846 pg/mL (0-900) H 08/26/18 21:13 Total Protein 7.0 g/dL (6.3-8.2) 08/26/18 21:13 Albumin 2.9 g/dL (3.9-5) L 08/26/18 21:13 Albumin/Globulin Ratio 0.7 % 08/26/18 21:13 Urine Color Yellow (Yellow) 08/30/18 05:30 Urine Turbidity Clear (Clear) 08/30/18 05:30 Urine pH 6.0 (5.0-7.0) 08/30/18 05:30 Ur Specific [place] 1.013 (1.003-1.030) 08/30/18 05:30 Urine Protein >500 mg/dL (Negative) 08/30/18 05:30 Urine Glucose (UA) Neg mg/dL (Negative) 08/30/18 05:30 Urine Ketones Neg mg/dL (Negative) 08/30/18 05:30 Urine Blood Neg (Negative) 08/30/18 05:30 Urine Nitrite Neg (Negative) 08/30/18 05:30 Urine Bilirubin Neg (Negative) 08/30/18 05:30 Urine Urobilinogen < 2.0 mg/dL (<2.0) 08/30/18 05:30 Ur Leukocyte Esterase Neg (Negative) 08/30/18 05:30 Urine WBC (Auto) 1.0 /HPF (0.0-6.0) 08/30/18 05:30 Urine RBC (Auto) < 1.0 /HPF (0.0-6.0) 08/30/18 05:30 U Epithel Cells (Auto) < 1.0 /HPF (0-13.0) 08/30/18 05:30 Urine Bacteria (Auto) 1+ /HPF (Negative) 08/27/18 22:20 Urine Mucus Few /HPF 08/30/18 05:30 Urine Creatinine 79.3 mg/dL (0.1-20.0) H 08/27/18 22:20 Urine Total Protein 424 mg/dL (5-11.8) H 08/27/18 22:20
--- NOTE | 2018-09-02 11:03 | Discharge Summary ---
Providers - Providers Date of Admission: 08/26/18 22:55 Date of discharge: 09/02/18 Attending physician: MELISSA MARLEY 08/27/18 06:00 Consult to Physician [CONS] Routine Comment: Consulting Provider: KACEY BROWNING Physician Instructions: Reason For Exam: RECURRENT CHF EXACERBATION Consult to Physician [CONS] Routine Comment: Consulting Provider: DELPHINE DAMON Physician Instructions: Reason For Exam: CKD 08/30/18 09:57 Occupational Therapy Evaluate and Treat [CONS] Stat Comment: Reason For Exam: adl evaluate Physical Therapy Evaluation and Treat [CONS] Stat Comment: Reason For Exam: difficulty walking Speech Therapy Evaluation and Treat [CONS] Stat Reason For Exam: difficult speaking Primary care physician: [employer] Hospitalization Condition: Stable Hospital course: Patient is a 83-year-old [place] speaking woman with history of Obesity, HTN, DM type 2 and h/o DVT not on anticoagulation, CHF with diastolic dysfunction, on 2 L home O2 who was discharged from this hospital 2 days prior to this admission during which she was admitted for CHF exacerbation and chronic kidney disease, she again presented on 08/27/18 with complaint of shortness of breath. * Radiological data: Chest x-ray: Mild scattering, atelectasis within the left mid lung field with no acute pulmonary findings Acute on chronic hypoxic respiratory failure, present on admission with bilateral pleural effusion, treat with lasix but renal function worsened, no lasix stopped and hydrating carefully: treat with O2 Acute on chronic diastolic heart failure with preserved EF and diastolic dysfunction, stable now: Cardiology evaluated Hypertension, accelerated: low salt diet, and treat with antihypertensives Poorly controlled diabetes mellitus type 2: SSI Hyperkalemia, due to worsening renal function: monitor bmp closely [place] on Chronic kidney disease, vasomotor nephropathy, poa: Renal is following renal u/s pending History of moderate aortic stenosis and moderate mitral regurgitation: Cardiology following Leukocytosis, most likely reactive etiology - spiked low grade temp 100.2F isolated: follow blood culture, negative so far, on empiric Levaquin Aphasia, most likely chronic from old stroke Advance planning and hospice was discussed, they declined says stopped speaking around 3 am Tuesday morning, code stroke called, Neurology saw==> no acute stroke. This morning, pt had blank staring prolonged episode with left sided weakness, MRI brain ordered which confirmed no acute stroke. Disposition: continue inpatient care, anticipate home today, Nephrology cleared, renal u/s reviewed. Home when 3 liters O2 setup. Family refusing recommended medical therapy, will try to discharge today once O2 from her home arrives Disposition: DC- TO HOME OR SELFCARE Time spent for discharge: 34 minutes Core Measure Documentation - Palliative Care Palliative Care/ Comfort Measures: Not Applicable - Core Measures Any of the following diagnoses?: heart failure - VTE Discharge Requirements Deep Vein Thrombosis/Pulmonary Embolism Present on Admission: No Has pt received <5 days of overlap therapy or INR<2.0: No Anticoagulant overlap therapy prescribed at discharge: No Contraindication No Overlap Therapy order at DC: Not Indicated - Heart Failure Discharge Requirements JORDANA/ARB for LVSD if EF <40%: No Reason for no JORDANA/ARB: Renal impairment Beta starla at discharge: Yes Exam - Physical Exam Narrative exam: Gen: ill appearing, NAD, Awake, Alert, talking more HEENT: NCAT, facial asymmetry Neck: supple, no adenopathy, no thyromegaly, no JVD CVS/Heart: RRR, normal S1S2, pulses present bilaterally Chest/Lungs: diminished bs bilateral, Symmetrical chest expansion, good air entry bilaterally GI/Abdomen: soft, NTND, good bowel sounds, no guarding or rebound /Bladder: no suprapubic tenderness, no CVA or paraspinal tenderness Extermity/Skin: no c/c/e, no obvious rash MSK: FROM x 4, weaker bilateral Neuro: CN 2-12 grossly intact, aphasia with facial asymmetry Psych: calm - Constitutional Vitals: Temp Pulse Resp BP Pulse Ox 98.5 F 82 16 166/58 97 09/02/18 09:03 09/02/18 09:03 09/02/18 09:03 09/02/18 09:03 09/02/18 09:03 Plan Activity: other (no strenous activity) Diet: low salt Follow up with: KRISTIE LUQUE MD [Primary Care Provider] - 3-5 Days DELPHINE DAMON MD [Staff Physician] - 7 Days KACEY BROWNING MD [Staff Physician] - 7 Days Prescriptions: ALBUTEROL NEB's [Proventil 0.083% NEBS] 2.5 mg IH Q6HRT PRN #30 nebu PRN Reason: Shortness Of Breath Furosemide [Lasix] 20 mg PO BID #60 tablet hydrALAZINE [Apresoline TAB] 50 mg PO TID #90 tablet ISOSORBIDE MONOnitrate [Imdur ER] 30 mg PO BID #60 tablet Metoprolol [Lopressor TAB] 100 mg PO BID #60 tablet
== END 2018-09-02 12:00 | disposition home or self-care (01) | DRG 291 ==
LOC: ED 19:49 → 4A 22:55
PROVIDERS: ADMIT Internal Medicine; ATTEND Internal Medicine
DX: I13.0 Hypertensive heart and chronic kidney disease with heart failure and stage 1 through stage 4 chronic kidney disease, or unspecified chronic kidney disease (principal); N17.0 Acute kidney failure with tubular necrosis; J96.21 Acute and chronic respiratory failure with hypoxia; I50.33 Acute on chronic diastolic (congestive) heart failure; I16.9 Hypertensive crisis, unspecified; G93.40 Encephalopathy, unspecified; I69.354 Hemiplegia and hemiparesis following cerebral infarction affecting left non-dominant side; N18.4 Chronic kidney disease, stage 4 (severe); E87.5 Hyperkalemia; I16.0 Hypertensive urgency; E11.22 Type 2 diabetes mellitus with diabetic chronic kidney disease; I08.0 Rheumatic disorders of both mitral and aortic valves; Z86.718 Personal history of other venous thrombosis and embolism; Z79.84 Long term (current) use of oral hypoglycemic drugs; Z79.899 Other long term (current) drug therapy; Z82.49 Family history of ischemic heart disease and other diseases of the circulatory system; I69.320 Aphasia following cerebral infarction; Z99.81 Dependence on supplemental oxygen
CPT/HCPCS: 36415; 70450; 70551; 71045; 75571; 76770; 80048; 80053; 81001; 82550; 82553; 82570; 82962; 83735; 83880; 84156; 84484; 85025; 85027; 87040; 93005; 93010; 94640; 94760; 95819; G0378; J1644; J1815; J1940; J1956; J2405; J7030

== ENCOUNTER 2019-05-11 04:50 | Inpatient (IN) | payer MEDICARE ==
[2019-05-11] MEDS ORDERED: MAGNESIUM SULFATE 2 GM/50 ML BAG IV ONE (04:53)
[2019-05-11] MEDS ORDERED: FUROSEMIDE 40 MG/4 ML INJ IV ONE (04:53)
[2019-05-11] MEDS ORDERED: ALBUTEROL 2.5 MG/3 ML NEBU IH ONE (04:58)
[2019-05-11] MEDS ORDERED: IPRATROPIUM 0.02% NEBU 2.5 ML IH ONE (04:58)
[2019-05-11] MEDS ORDERED: NITROGLYCERIN DRIP 50 MG/250 ML BOTTLE IV SCH (05:00)
--- NOTE | 2019-05-11 05:25 | Emergency Department Report ---
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 Patient was noted by paramedics to have an O2 sat of 80% on oxygen. Patient was placed on CPAP and transported to the hospital. Patient is due for dialysis today. It is unknown at this time whether the patient missed her dialysis session this week. Patient was admitted on 05/02/2019 for respiratory issues but appears to have left hospital AGAINST MEDICAL ADVICE. There is no discharge summary and pierces. Patient is denying any chest pain or fever at this time. Ahsan is a poor historian secondary to language barrier. The majority of the history was relayed to us by paramedics who obtained the history from her daughter who does speak Danish. - Related Data Home Medications Medication Instructions Recorded Confirmed Last Taken Aspirin [Aspirin BABY CHEW TAB] 81 mg PO QDAY 05/02/19 05/02/19 05/01/19 Carvedilol [Coreg] 12.5 mg PO BID 05/02/19 05/02/19 05/01/19 Fenofibrate 160 mg PO TID 05/02/19 05/02/19 05/01/19 Icosapent Ethyl [Vascepa] 1 gm PO QID 05/02/19 05/02/19 05/01/19 Metformin HCl [metFORMIN] 1,000 mg PO BID 05/02/19 05/02/19 05/01/19 Simvastatin 20 mg PO QHS 05/02/19 05/02/19 05/01/19 cloNIDine [Catapres] 0.1 mg PO TID 05/02/19 05/02/19 05/01/19 Previous Rx's Medication Instructions Recorded Last Taken Type amLODIPine 10 mg PO DAILY #30 tablet 08/24/18 05/01/19 Rx ALBUTEROL NEB's [Proventil 0.083% 2.5 mg IH Q6HRT PRN #30 nebu 09/02/18 05/01/19 Rx NEBS] Acetaminophen [Acetaminophen TAB] 650 mg PO Q4H PRN #15 tablet 09/02/18 05/01/19 Rx Furosemide [Lasix] 20 mg PO BID #60 tablet 09/02/18 05/01/19 Rx hydrALAZINE [Apresoline TAB] 50 mg PO TID #90 tablet 09/02/18 05/01/19 Rx Allergies Allergy/AdvReac Type Severity Reaction Status Date / Time No Known Allergies Allergy Verified 05/02/19 08:02 ED Review of Systems Comment: All other systems reviewed and negative ED Past Medical Hx - Past Medical History Hx Hypertension: Yes Hx Congestive Heart Failure: Yes Hx Diabetes: Yes Hx Deep Vein Thrombosis: Yes Hx Renal Disease: Yes Hx Arthritis: Yes Hx HIV: No Additional medical history: Heart failure 08/2018, Pulmonary edema 08/2018 - Social History Smoking Status: Never Smoker Substance Use Type: None - Medications Home Medications: Home Medications Medication Instructions Recorded Confirmed Last Taken Type amLODIPine 10 mg PO DAILY #30 tablet 08/24/18 05/02/19 05/01/19 Rx ALBUTEROL NEB's [Proventil 0.083% 2.5 mg IH Q6HRT PRN #30 nebu 09/02/18 05/02/19 05/01/19 Rx NEBS] Acetaminophen [Acetaminophen TAB] 650 mg PO Q4H PRN #15 tablet 09/02/18 05/02/19 05/01/19 Rx Furosemide [Lasix] 20 mg PO BID #60 tablet 09/02/18 05/02/19 05/01/19 Rx hydrALAZINE [Apresoline TAB] 50 mg PO TID #90 tablet 09/02/18 05/02/19 05/01/19 Rx Aspirin [Aspirin BABY CHEW TAB] 81 mg PO QDAY 05/02/19 05/02/19 05/01/19 History Carvedilol [Coreg] 12.5 mg PO BID 05/02/19 05/02/19 05/01/19 History Fenofibrate 160 mg PO TID 05/02/19 05/02/19 05/01/19 History Icosapent Ethyl [Vascepa] 1 gm PO QID 05/02/19 05/02/1919 History Metformin HCl [metFORMIN] 1,000 mg PO BID 05/02/19 05/02/19 05/01/19 History Simvastatin 20 mg PO QHS 05/02/19 05/02/19 05/01/19 History cloNIDine [Catapres] 0.1 mg PO TID 05/02/19 05/02/19 05/01/19 History ED Physical Exam - General Limitations: Language Barrier General appearance: alert, anxious, in distress - Head Head exam: Present: atraumatic, normocephalic - Eye Eye exam: Present: normal appearance - ENT ENT exam: Present: mucous membranes moist - Neck Neck exam: Present: normal inspection - Respiratory Respiratory exam: Present: respiratory distress, wheezes, rales, accessory muscle use. Absent: normal lung sounds bilaterally, rhonchi, stridor - Cardiovascular Cardiovascular Exam: Present: normal rhythm, normal heart sounds. Absent: systolic murmur, diastolic murmur, rubs, gallop - GI/Abdominal GI/Abdominal exam: Present: soft, normal bowel sounds. Absent: distended, tenderness, guarding - Extremities Exam Extremities exam: Present: normal inspection - Back Exam Back exam: Present: normal inspection - Neurological Exam Neurological exam: Present: alert, oriented X3 - Psychiatric Psychiatric exam: Present: normal affect, normal mood - Skin Skin exam: Present: warm, dry, intact, normal color. Absent: rash ED Course - Reevaluation(s) Reevaluation #1: 05/11/19 05:31 Patient was hypertensive and clinically fluid overloaded. Nitro drip was ordered to help with preload reduction. Patient does have some wheezing which is likely cardiogenic in nature however neb treatment with albuterol and Atrovent was ordered as well. Premature studies will be drawn. ED Disposition Clinical Impression: Acute on chronic diastolic (congestive) heart failure CHF exacerbation Qualifiers: Heart failure type: unspecified Qualified Code(s): I50.9 - Heart failure, unspecified Fluid overload Qualifiers: Hypervolemia type: unspecified Qualified Code(s): E87.70 - Fluid overload, un specified Disposition: OP ADMIT IP TO THIS HOSP Condition: Stable <ABRAHAM MALDONADO - Last Filed: 05/11/19 07:49> ED Review of Systems ROS: Stated complaint: IRISH Other details as noted in HPI ED Course Vital Signs 05/11/19 05/11/19 05/11/19 04:53 04:59 05:00 Temperature 98.2 F Pulse Rate 120 H 120 H 112 H Pulse Rate [ Bilateral Throughout] Respiratory 18 29 H 13 Rate Respiratory Rate [Bilateral Throughout] Blood Pressure 176/76 164/68 O2 Sat by Pulse 98 98 100 Oximetry 05/11/19 05/11/19 05/11/19 05:10 05:30 06:00 Temperature Pulse Rate 97 H 93 H Pulse Rate [ 110 H Bilateral Throughout] Respiratory 26 H 17 Rate Respiratory 24 Rate [Bilateral Throughout] Blood Pressure 164/68 145/71 O2 Sat by Pulse 96 100 Oximetry 05/11/19 05/11/19 05/11/19 06:30 07:00 07:30 Temperature Pulse Rate 95 H 87 88 Pulse Rate [ Bilateral Throughout] Respiratory 21 18 20 Rate Respiratory Rate [Bilateral Throughout] Blood Pressure 140/74 157/54 148/54 O2 Sat by Pulse 98 99 99 Oximetry ED Medical Decision Making - Lab Data Result diagrams: 05/11/19 05:06 05/11/19 05:06 Laboratory Results - last 24 hr 05/11/19 05/11/19 05/11/19 05:06 05:06 05:06 WBC 19.5 H RBC 3.20 L Hgb 9.7 L Hct 29.9 L MCV 94 MCH 30 MCHC 32 RDW 17.2 H Plt Count 404 Lymph % (Auto) 7.4 L [place] % (Auto) 4.1 Eos % (Auto) 3.1 Baso % (Auto) 0.5 Lymph # 1.4 [place] # 0.8 Eos # 0.6 H Baso # 0.1 Seg Neutrophils % 84.9 H Seg Neutrophils # 16.5 H PT 12.5 INR 0.94 APTT 30.3 Sodium 141 Potassium 4.0 Chloride 102.4 Carbon Dioxide 23 Anion Gap 20 BUN 28 H Creatinine 3.4 H Estimated GFR 13 BUN/Creatinine Ratio 8 Glucose 198 H Calcium 7.7 L Magnesium 2.10 Total Bilirubin 0.20 AST 17 ALT 9 Alkaline Phosphatase 100 Troponin T NT-Pro-B Natriuret Pep 5759 H Total Protein 7.2 Albumin 3.6 L Albumin/Globulin Ratio 1.0 Triglycerides Cholesterol LDL Cholesterol Direct HDL Cholesterol Cholesterol/HDL Ratio 05/11/19 05:06 WBC RBC Hgb Hct MCV MCH MCHC RDW Plt Count Lymph % (Auto) [place] % (Auto) Eos % (Auto) Baso % (Auto) Lymph # [place] # Eos # Baso # Seg Neutrophils % Seg Neutrophils # PT INR APTT Sodium Potassium Chloride Carbon Dioxide Anion Gap BUN Creatinine Estimated GFR BUN/Creatinine Ratio Glucose Calcium Magnesium Total Bilirubin AST ALT Alkaline Phosphatase Troponin T 0.042 H NT-Pro-B Natriuret Pep Total Protein Albumin Albumin/Globulin Ratio Triglycerides 108 Cholesterol 186 LDL Cholesterol Direct 130 HDL Cholesterol 52 Cholesterol/HDL Ratio 3.57 - Radiology Data Radiology results: report reviewed - Medical Decision Making At 0748 Dr. Curtis nephrology updated. Request admit to the hospitalist. Will place HD orders for today. Reports patient last seen Tuesday for HD. Plan admit for further evaluation. Hospitalist updated and accepts admission. Critical care attestation.: If time is entered above; I have spent that time in minutes in the direct care of this critically ill patient, excluding procedure time. ED Disposition Is pt being admited?: Yes Time of Disposition: 07:04
[2019-05-11 05:44] LABS: Basophils # (Auto) 0.1 K/mm3 (0.0-0.1); Basophils % (Auto) 0.5 % (0.0-1.8); Eosinophils # (Auto) 0.6 K/mm3 (0.0-0.4); Eosinophils % (Auto) 3.1 % (0.0-4.3); Hematocrit 29.9 % (30.3-42.9); Hemoglobin 9.7 gm/dl (10.1-14.3); Lymphocytes # (Auto) 1.4 K/mm3 (1.2-5.4); Lymphocytes % (Auto) 7.4 % (13.4-35.0); Mean Corpuscular HGB Conc 32 % (30-34); Mean Corpuscular Volume 94 fl (79-97); Monocytes # (Auto) 0.8 K/mm3 (0.0-0.8); Monocytes % (Auto) 4.1 % (0.0-7.3); Platelet Count 404 K/mm3 (140-440); Red Cell Distribution Width 17.2 % (13.2-15.2)
[2019-05-11 05:52] LABS: INR 0.94 (0.87-1.13); Partial Thromboplastin Time 30.3 Sec. (24.2-36.6)
[2019-05-11 06:03] LABS: Albumin 3.6 g/dL (3.9-5); Calcium 7.7 mg/dL (8.4-10.2)
--- NOTE | 2019-05-11 06:15 | XRay Report ---
CHEST 1 VIEW 5:17 AM INDICATION / CLINICAL INFORMATION: respiratory distress. COMPARISON: 05/02/19 FINDINGS: SUPPORT DEVICES: Right PermCath is unchanged. HEART / MEDIASTINUM: Heart is upper normal size and stable. LUNGS / PLEURA: Interval development of mild bilateral perihilar densities which may represent pulmon brendan edema. No pneumothorax. ADDITIONAL FINDINGS: No significant additional findings. IMPRESSION: 1. Mild bilateral perihilar pulmonary edema. Signer Name: Rivas Martin MD Signed: 05/11/2019 6:10 AM Workstation Name: [email or web address]
[2019-05-11 06:40] LABS: Chol/HDL Ratio 3.57 %
[2019-05-11] MEDS ORDERED: ASPIRIN 81 MG TAB CHEW PO ONE (07:01)
[2019-05-11] MEDS ORDERED: ONDANSETRON 4 MG/2 ML INJ IV PRN (07:15)
[2019-05-11] MEDS ORDERED: ACETAMINOPHEN 325 MG TAB PO PRN (07:15)
--- NOTE | 2019-05-11 08:41 | Consultation ---
History of Present Illness - Reason for Consult Consult date: 05/11/19 end stage renal disease Medications and Allergies Allergies Allergy/AdvReac Type Severity Reaction Status Date / Time No Known Allergies Allergy Verified 05/02/19 08:02 Home Medications Medication Instructions Recorded Confirmed Last Taken Type amLODIPine 10 mg PO DAILY #30 tablet 08/24/18 05/02/19 05/01/19 Rx ALBUTEROL NEB's [Proventil 0.083% 2.5 mg IH Q6HRT PRN #30 nebu 09/02/18 05/02/19 05/01/19 Rx NEBS] Acetaminophen [Acetaminophen TAB] 650 mg PO Q4H PRN #15 tablet 09/02/18 05/02/19 05/01/19 Rx Furosemide [Lasix] 20 mg PO BID #60 tablet 09/02/18 05/02/19 05/01/19 Rx hydrALAZINE [Apresoline TAB] 50 mg PO TID #90 tablet 09/02/18 05/02/19 05/01/19 Rx Aspirin [Aspirin BABY CHEW TAB] 81 mg PO QDAY 05/02/19 05/02/19 05/01/19 History Carvedilol [Coreg] 12.5 mg PO BID 05/02/19 05/02/19 05/01/19 History Fenofibrate 160 mg PO TID 05/02/19 05/02/19 05/01/19 History Icosapent Ethyl [Vascepa] 1 gm PO QID 05/02/19 05/02/19 05/01/19 History Metformin HCl [metFORMIN] 1,000 mg PO BID 05/02/19 05/02/19 05/01/19 History Simvastatin 20 mg PO QHS 05/02/19 05/02/19 05/01/19 History cloNIDine [Catapres] 0.1 mg PO TID 05/02/19 05/02/19 05/01/19 History Active Meds: Active Medications Acetaminophen (Tylenol) 650 mg PO Q4H PRN PRN Reason: Pain MILD(1-3)/Fever >100.5/MEHTA Nitroglycerin/Dextrose (Tridil Drip 50mg/250ml) 50 mg in 250 mls @ 3 mls/hr IV TITR ANAHY; Protocol Last Admin: 05/11/19 05:31 Dose: 10 mcg/min, 3 mls/hr Documented by: Ondansetron HCl (Zofran) 4 mg IV Q8H PRN PRN Reason: Nausea And Vomiting Sodium Chloride (Sodium Chloride Flush Syringe 10 Ml) 10 ml IV BID ANAHY Sodium Chloride (Sodium Chloride Flush Syringe 10 Ml) 10 ml IV PRN PRN PRN Reason: LINE FLUSH Exam - Vital Signs Vital signs: Vital Signs Pulse Resp Pulse Ox 120 H 18 98 05/11/19 04:53 05/11/19 04:53 05/11/19 04:53 Results - Lab Results 05/11/19 05:06 05/11/19 05:06 Most recent lab results Calcium 7.7 mg/dL (8.4-10.2) L 05/11/19 05:06 Magnesium 2.10 mg/dL (1.7-2.3) 05/11/19 05:06
[2019-05-11] MEDS ORDERED: SODIUM CHLORIDE 0.9% 100 ML IV PRN (09:00)
[2019-05-11] MEDS ORDERED: SODIUM CHLORIDE*PRIMING MACHINE ONLY FOR DIALYSIS MC ONE (11:48)
--- NOTE | 2019-05-11 14:10 | History and Physical Report ---
History of Present Illness Date of examination: 05/11/19 Date of admission: 05/11/19 07:15 Chief complaint: SOB History of present illness: Patient is a 83-year-old [place] speaking woman with history of CVA with dysarthria, ESRD on HD on MWF, moderate aortic stenosis, moderate mitral regurgitation, Obesity, HTN, DM type 2, DVT not on anticoagulation, CHF with di astolic dysfunction and chronic hypoxic respiratory failure on 2 L home O2 who presents to progressive severe worsening of SOB that started today. Patient was noted by paramedics to have an O2 sat of 80% on oxygen. Patient was placed on CPAP and transported to the hospital. Patient is due for dialysis today. Family at bedside says she has not missed hemodialysis session. Patient came here on 05/02/19 and was admitted for respiratory issues but it appears patient left the hospital AGAINST MEDICAL ADVICE. There is no discharge summary. Patient is denying any chest pain or fever at this time. 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 Past Medical History: arthritis, dialysis, ESRD, heart failure (diastolic congestive heart failure), hypertension, other (pulmonary edema) Past Surgical History: Other (permacath placement) Social history: lives with family. denies: smoking, alcohol abuse, prescription drug abuse Family history: hypertension ROS: Constitutional: denies: fever ENT: denies: throat or neck pain Respiratory: +cough, shortness of breath Cardiovascular: denies: chest pain Endocrine: denies unexplained weight loss or gain Gastrointestinal: denies: abdominal pain, nausea Genitourinary: denies: dysuria Rectal: denies no incontinence, no bleeding, no itching, no discharge Musculoskeletal: denies swelling, myaglia, muscle weakness Skin: denies: rash Neurological: denies: headache Hematological/Lymphatic: denies: easy bleeding or easy bruising Allergic/Immunologic: no urticaria, no allergic rhinitis, no anaphylaxis Psych: denies sadness or hopelessness, SI/HI Medications and Allergies Allergies Allergy/AdvReac Type Severity Reaction Status Date / Time No Known Allergies Allergy Verified 05/02/19 08:02 Home Medications Medication Instructions Recorded Confirmed Last Taken Type amLODIPine 10 mg PO DAILY #30 tablet 08/24/18 05/02/19 05/01/19 Rx ALBUTEROL NEB's [Proventil 0.083% 2.5 mg IH Q6HRT PRN #30 nebu 09/02/18 05/02/19 05/01/19 Rx NEBS] Acetaminophen [Acetaminophen TAB] 650 mg PO Q4H PRN #15 tablet 09/02/18 05/02/19 05/01/19 Rx Furosemide [Lasix] 20 mg PO BID #60 tablet 09/02/18 05/02/19 05/01/19 Rx hydrALAZINE [Apresoline TAB] 50 mg PO TID #90 tablet 09/02/18 05/02/19 05/01/19 Rx Aspirin [Aspirin BABY CHEW TAB] 81 mg PO QDAY 05/02/19 05/02/19 05/01/19 History Carvedilol [Coreg] 12.5 mg PO BID 05/02/19 05/02/19 05/01/19 History Fenofibrate 160 mg PO TID 05/02/19 05/02/19 05/01/19 History Icosapent Ethyl [Vascepa] 1 gm PO QID 05/02/19 05/02/19 05/01/19 History Metformin HCl [metFORMIN] 1,000 mg PO BID 05/02/19 05/02/19 05/01/19 History Simvastatin 20 mg PO QHS 05/02/19 05/02/19 05/01/19 History cloNIDine [Catapres] 0.1 mg PO TID 05/02/19 05/02/19 05/01/19 History Active Meds: Active Medications Acetaminophen (Tylenol) 650 mg PO Q4H PRN PRN Reason: Pain MILD(1-3)/Fever >100.5/EMHTA Sodium Chloride (Nacl 0.9%) 100 mls @ 999 mls/hr IV LEVI PRN PRN Reason: Hypotension Ondansetron HCl (Zofran) 4 mg IV Q8H PRN PRN Reason: Nausea And Vomiting Sodium Chloride (Sodium Chloride Flush Syringe 10 Ml) 10 ml IV BID ANAHY Sodium Chloride (Sodium Chloride Flush Syringe 10 Ml) 10 ml IV PRN PRN PRN Reason: LINE FLUSH Exam - Physical Exam Narrative exam: Gen: chronically disable appearing, mild increase accessory muscle on NC O2 NAD, Awake, Alert, Orientated HEENT: NCAT, EOMI, PERRL, OP Clear Neck: supple, no adenopathy, no thyromegaly, no JVD CVS/Heart: RRR, normal S1S2, pulses present bilaterally Chest/Lungs: diminished bs bilateral and bibasilar crackles, Symmetrical chest expansion, good air entry bilaterally GI/Abdomen: soft, NTND, good bowel sounds, no guarding or rebound /Bladder: no suprapubic tenderness, no CVA or paraspinal tenderness Extermity/Skin: no c/c/e, no obvious rash MSK: FROM x 4 Neuro: CN 2-12 grossly intact, no new focal deficits Psych: calm - Constitutional Vitals: Temp Pulse Resp BP Pulse Ox 99.0 F 92 H 18 119/56 100 05/11/19 09:53 05/11/19 13:30 05/11/19 09:53 05/11/19 13:30 05/11/19 09:53 Results - Labs CBC & Chem 7: 05/11/19 05:06 05/11/19 05:06 Labs: Abnormal lab results 05/11/19 05/11/19 05/11/19 Range/Units 05:06 05:06 05:06 WBC 19.5 H (4.5-11.0) K/mm3 RBC 3.20 L (3.65-5.03) M/mm3 Hgb 9.7 L (10.1-14.3) gm/dl Hct 29.9 L (30.3-42.9) % RDW 17.2 H (13.2-15.2) % Lymph % (Auto) 7.4 L (13.4-35.0) % Eos # 0.6 H (0.0-0.4) K/mm3 Seg Neutrophils % 84.9 H (40.0-70.0) % Seg Neutrophils # 16.5 H (1.8-7.7) K/mm3 BUN 28 H (7-17) mg/dL Creatinine 3.4 H (0.7-1.2) mg/dL Glucose 198 H (65-100) mg/dL Calcium 7.7 L (8.4-10.2) mg/dL Troponin T 0.042 H (0.00-0.029) ng/mL NT-Pro-B Natriuret Pep 5759 H (0-900) pg/mL Albumin 3.6 L (3.9-5) g/dL 05/11/19 Range/Units 07:49 WBC (4.5-11.0) K/mm3 RBC (3.65-5.03) M/mm3 Hgb (10.1-14.3) gm/dl Hct (30.3-42.9) % RDW (13.2-15.2) % Lymph % (Auto) (13.4-35.0) % Eos # (0.0-0.4) K/mm3 Seg Neutrophils % (40.0-70.0) % Seg Neutrophils # (1.8-7.7) K/mm3 BUN (7-17) mg/dL Creatinine (0.7-1.2) mg/dL Glucose (65-100) mg/dL Calcium (8.4-10.2) mg/dL Troponin T 0.143 H* D (0.00-0.029) ng/mL NT-Pro-B Natriuret Pep (0-900) pg/mL Albumin (3.9-5) g/dL Assessment and Plan Patient is a 83-year-old [place] speaking woman with history of CVA with dysarthria, ESRD on HD on MWF, moderate aortic stenosis, moderate mitral regurgitation, Obesity, HTN, DM type 2, DVT not on anticoagulation, CHF with diastolic dysfunction and chronic hypoxic respiratory failure on 2 L home O2 who presents to progressive severe worsening of SOB that started today. Patient was noted by paramedics to have an O2 sat of 80% on oxygen. Patient was placed on CPAP and transported to the hospital. Patient is due for dialysis today. Family at bedside says she has not missed hemodialysis session. Patient came here on and was admitted for respiratory issues but it appears patient left the hospital AGAINST MEDICAL ADVICE. There is no discharge summary. Patient is denying any chest pain or fever at this time. 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 * pCXR Impression: Mild bilateral perihilar pulmonary edema * EKG Aflutter RVR 2:1 AV block, HR 105 Acute on chronic hypoxic respiratory failure, present on admission with bilateral pulmonary edema: treat with increase Ultrafiltration with HD, Consult Cardiology and Nephrology Acute on chronic diastolic heart failure with preserved EF and diastolic dysfunction, stable now: Cardiology to be consulted Hypertension, accelerated: low salt diet, and treat with antihypertensives Controlled diabetes mellitus type 2: SSI, accucheck, ada/renal diet ESRD on HD: Consult Nephrology Elevated troponin, above baseline of (0.04), type 2 MO: consult Cardiology, serial CE, troponins, repeat EKG Aflutter with 2.1 AV block, ?new: consult Cardiology Leukocytosis: work up for infection, UA if able to make urine, blood cultures Dysarthria most likely chronic from old stroke DVT prophylaxis: sq heparin full code
[2019-05-11] MEDS ORDERED: DEXTROSE 50% IN WATER (25GM) 50 ML SYRINGE IV PRN (14:48)
[2019-05-11] MEDS ORDERED: HYDROcodone/ACETAMINOPHEN 5-325 MG TAB PO PRN (14:49)
--- NOTE | 2019-05-11 15:37 | Consultation ---
History of Present Illness Consult date: 05/11/19 Requesting physician: MELISSA MARLEY Consult reason: congestive heart failure, elevated troponin History of present illness: The patient is an 83-year-old [place] speaking woman with history of CVA with dysarthria, ESRD on HD on MWF, moderate aortic stenosis, moderate mitral regurgitation, HTN, DM type 2, DVT not on anticoagulation, HFpEF, chronic hypoxic respiratory failure on 2 L home O2. She has been seen by our practice on prior hospitalizations. She presented with c/o progressively worsening SOB for 1 day prior to arrival. Patient was noted by paramedics to have an O2 sat of 80% on oxygen. Patient was placed on CPAP and transported to the hospital. Patient is due for dialysis today. Family at bedside says she has not missed hemodialysis session. Patient came here on 05/02/19 and was admitted for respi ratory issues but it appears patient left the hospital AGAINST MEDICAL ADVICE. There is no discharge summary. Patient is denying any chest pain or fever at this time. 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 Cardiology has been consulted for "AFlutter, CHF and worsening high troponin". ECG and telemetry reviewed, pt has been in NSR, no evidence of atrial fibrillation or atrial flutter. Echo done 08/18/2018 showed EF 55-60%, mild AR, pseudonormalization, mod (CORNELIA 0.85, mean gradient 23mmHg), mild AR, mod MR, RVSP 35-40mmHg. Cardiac calcium scoring done 09/2018 showed aortic valve calcium score of 447.23. Past History Past Medical History: other (as per HPI) Medications and Allergies Allergies Allergy/AdvReac Type Severity Reaction Status Date / Time No Known Allergies Allergy Verified 05/02/19 08:02 Home Medications Medication Instructions Recorded Confirmed Last Taken Type amLODIPine 10 mg PO DAILY #30 tablet 08/24/18 05/02/19 05/01/19 Rx ALBUTEROL NEB's [Proventil 0.083% 2.5 mg IH Q6HRT PRN #30 nebu 09/02/18 05/02/19 05/01/19 Rx NEBS] Acetaminophen [Acetaminophen TAB] 650 mg PO Q4H PRN #15 tablet 09/02/18 05/02/19 05/01/19 Rx Furosemide [Lasix] 20 mg PO BID #60 tablet 09/02/18 05/02/19 05/01/19 Rx hydrALAZINE [Apresoline TAB] 50 mg PO TID #90 tablet 09/02/18 05/02/19 05/01/19 Rx Aspirin [Aspirin BABY CHEW TAB] 81 mg PO QDAY 05/02/19 05/02/19 05/01/19 History Carvedilol [Coreg] 12.5 mg PO BID 05/02/19 05/02/19 05/01/19 History Fenofibrate 160 mg PO TID 05/02/19 05/02/19 05/01/19 History Icosapent Ethyl [Vascepa] 1 gm PO QID 05/02/19 05/02/19 05/01/19 History Metformin HCl [metFORMIN] 1,000 mg PO BID 05/02/19 05/02/19 05/01/19 History Simvastatin 20 mg PO QHS 05/02/19 05/02/19 05/01/19 History cloNIDine [Catapres] 0.1 mg PO TID 05/02/19 05/02/19 05/01/19 History Active Meds: Active Medications Acetaminophen (Tylenol) 650 mg PO Q4H PRN PRN Reason: Pain MILD(1-3)/Fever >100.5/MEHTA Acetaminophen/Hydrocodone Bitart ([place]rick 5/325) 1 each PO Q4H PRN PRN Reason: Pain, Moderate (4-6) Dextrose (D50w (25gm) Syringe) 50 ml IV Q30MIN PRN; Protocol PRN Reason: Hypoglycemia Heparin Sodium (Porcine) (Heparin) 5,000 unit SUB-Q Q12HR [facility] Sodium Chloride (Nacl 0.9%) 100 mls @ 999 mls/hr IV LEVI PRN PRN Reason: Hypotension Ceftriaxone Sodium (Rocephin/Ns 1 Gm/50 Ml) 1 gm in 50 mls @ 100 mls/hr IV Q24H [facility]; Protocol Insulin Human Lispro (Humalog) 0 unit SUB-Q ACHS ANAHY; Protocol Ondansetron HCl (Zofran) 4 mg IV Q8H PRN PRN Reason: Nausea And Vomiting Sodium Chloride (Sodium Chloride Flush Syringe 10 Ml) 10 ml IV BID ANAHY Sodium Chloride (Sodium Chloride Flush Syringe 10 Ml) 10 ml IV PRN PRN PRN Reason: LINE FLUSH Review of Systems Constitutional: no weight loss, no weight gain, no fever, no chills, no sweats Ears, nose, mouth and throat: no ear pain, no nose pain, no sinus pressure, no sinus pain Cardiovascular: shortness of breath, dyspnea on exertion, no chest pain Respiratory: shortness of breath, dyspnea on exertion, no cough, no congestion, no wheezing, no pain on inspiration Gastrointestinal: no abdominal pain, no nausea, no vomiting, no diarrhea, no constipation Genitourinary Female: no pelvic pain, no flank pain, no dysuria, no urinary frequency, no urgency Musculoskeletal: no neck stiffness, no neck pain, no shooting arm pain, no arm numbness/tingling, no low back pain, no shooting leg pain Integumentary: no rash, no pruritis, no redness, no sores, no wounds Neurological: no head injury, no paralysis, no weakness, no parathesias, no numbness, no tingling, no seizures, no syncope Psychiatric: no anxiety Endocrine: no cold intolerance, no heat intolerance Hematologic/Lymphatic: no easy bruising, no easy bleeding Allergic/Immunologic: no urticaria Physical Examination Vital Signs Pulse Resp Pulse Ox 120 H 18 98 05/11/19 04:53 05/11/19 04:53 05/11/19 04:53 General appearance: no acute distress HEENT: Positive: PERRL, Normocephaly, Mucus Membranes Moist Neck: Positive: neck supple, trachea midline Cardiac: Positive: Reg Rate and Rhythm, S1/S2 Lungs: Positive: Decreased Breath Sounds Neuro: Positive: Grossly Intact Abdomen: Negative: Tender Skin: Negative: Rash Musculoskeletal: No Pain Extremities: Absent: edema Results 05/11/19 05:06 05/11/19 05:06 Cardiac Enzymes 05/11/19 Range/Units 05:06 AST 17 (5-40) units/L Coagulation 05/11/19 Range/Units 05:06 PT 12.5 (12.2-14.9) Sec. INR 0.94 (0.87-1.13) APTT 30.3 (24.2-36.6) Sec. Lipids 05/11/19 Range/Units 05:06 Triglycerides 108 (2-149) mg/dL Cholesterol 186 (50-199) mg/dL HDL Cholesterol 52 (40-59) mg/dL Cholesterol/HDL Ratio 3.57 % CBC 05/11/19 Range/Units 05:06 WBC 19.5 H (4.5-11.0) K/mm3 RBC 3.20 L (3.65-5.03) M/mm3 Hgb 9.7 L (10.1-14.3) gm/dl Hct 29.9 L (30.3-42.9) % Plt Count 404 (140-440) K/mm3 Lymph # 1.4 (1.2-5.4) K/mm3 [place] # 0.8 (0.0-0.8) K/mm3 Eos # 0.6 H (0.0-0.4) K/mm3 Baso # 0.1 (0.0-0.1) K/mm3 Comprehensive Metabolic Panel 05/11/19 Range/Units 05:06 Sodium 141 (137-145) mmol/L Potassium 4.0 (3.6-5.0) mmol/L Chloride 102.4 (98-107) mmol/L Carbon Dioxide 23 (22-30) mmol/L BUN 28 H (7-17) mg/dL Creatinine 3.4 H (0.7-1.2) mg/dL Glucose 198 H (65-100) mg/dL Calcium 7.7 L (8.4-10.2) mg/dL AST 17 (5-40) units/L ALT 9 (7-56) units/L Alkaline Phosphatase 100 (35-129) units/L Total Protein 7.2 (6.3-8.2) g/dL Albumin 3.6 L (3.9-5) g/dL - Imaging and Cardiology Echo: report reviewed (08/18/2018 showed EF 55-60%, mild AR, pseudonormalization, mod (CORNELIA 0.85, mean gradient 23mmHg), mild AR, mod MR, RVSP 35-40mmHg.) EKG: report reviewed, image reviewed EKG interpretations - Telemetry EKG Rhythm: Sinus Rhythm - EKG Sinus rhythms and dysrhythmias: sinus rhythm Assessment and Plan Resume home ASA, statin, coreg, hydralazine. Continue volume optimization per nephrology. CE elevation appears c/w NSTEMI type II. However, we have no record of a prior ischemic evaluation on this patient. Consider lexiscan MPI stress test once medically stabilized. The patient has been seen in conjunction with Dr. Kate who agrees with the assessment and plan of care. - Patient Problems (1) Acute heart failure with preserved ejection fraction Current Visit: Yes Status: Chronic (2) Fluid overload Current Visit: Yes Status: Acute Qualifiers: Hypervolemia type: unspecified Qualified Code(s): E87.70 - Fluid overload, unspecified (3) End stage renal disease on dialysis Current Visit: Yes Status: Acute (4) Moderate aortic stenosis Current Visit: Yes Status: Chronic (5) HTN (hypertension), benign Current Visit: Yes Status: Chronic (6) Diabetes mellitus type 2 in nonobese Current Visit: Yes Status: Chronic (7) History of CVA (cerebrovascular accident) Current Visit: Yes Status: Chronic (8) History of DVT (deep vein thrombosis) Current Visit: Yes Status: Chronic (9) Chronic respiratory failure Current Visit: Yes Status: Chronic (10) Anemia in chronic kidney disease Current Visit: Yes Status: Chronic Qualifiers: Chronic kidney disease stage: stage 4 (severe) Qualified Code(s): N18.4 - Chronic kidney disease, stage 4 (severe); D63.1 - Anemia in chronic kidney disease (11) NSTEMI (non-ST elevated myocardial infarction) Current Visit: Yes Status: Chronic Plan to address problem: suspect type II
[2019-05-11] MEDS: hydrALAZINE 25 MG TAB PO SCH (20:31)
[2019-05-11] MEDS: cefTRIAXone/NS 1 GM/50 ML 1 GM/50 ML BAG IV SCH (20:33)
[2019-05-11] MEDS: carvediloL 12.5 MG TAB PO SCH (22:22)
[2019-05-11] MEDS: PRAVASTATIN 40 MG TAB PO SCH (22:27)
[2019-05-11] MEDS: INSULIN LISPRO 100 UNIT/ML SUB-Q SCH (22:27)
[2019-05-12] MEDS: INSULIN LISPRO 100 UNIT/ML SUB-Q SCH ×5 (08:39→21:50)
[2019-05-12] MEDS: hydrALAZINE 25 MG TAB PO SCH ×3 (08:39→21:00)
[2019-05-12] MEDS: carvediloL 12.5 MG TAB PO SCH ×3 (10:00→21:49)
--- NOTE | 2019-05-12 13:30 | Progress Note ---
Assessment and Plan Patient's overall status appears improved. Continue volume optimization with HD and per nephology; continue current cardiac management. Will scheduled Lexiscan stress test for Tuesday. The patient has been seen in conjunction with Dr. Madden, who agrees with the assessment and plan. - Patient Problems (1) Acute heart failure with preserved ejection fraction Current Visit: Yes Status: Chronic (2) Acute and chronic respiratory failure ([id number]) Current Visit: Yes Status: Acute (3) Fluid overload Current Visit: Yes Status: Acute Qualifiers: Hypervolemia type: unspecified Qualified Code(s): E87.70 - Fluid overload, unspecified (4) Hypertension Current Visit: Yes Status: Chronic (5) End stage renal disease on dialysis Current Visit: Yes Status: Chronic (6) Anemia in chronic kidney disease Current Visit: Yes Status: Chronic Qualifiers: Chronic kidney disease stage: stage 4 (severe) Qualified Code(s): N18.4 - Chronic kidney disease, stage 4 (severe); D63.1 - Anemia in chronic kidney disease (7) History of CVA (cerebrovascular accident) Current Visit: Yes Status: Chronic (8) History of DVT (deep vein thrombosis) Current Visit: Yes Status: Chronic (9) Moderate aortic stenosis Current Visit: Yes Status: Chronic (10) NSTEMI (non-ST elevated myocardial infarction) Current Visit: Yes Status: Chronic (11) Type 2 diabetes mellitus Current Visit: No Status: Acute Qualifiers: 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 No complaints. Telemetry reviewed - SR in 80s. Objective Last Vital Signs Temp 98.7 F 05/12/19 08:55 Pulse 82 05/12/19 12:15 Resp 20 05/12/19 08:55 BP 155/73 05/12/19 12:15 Pulse Ox 98 05/12/19 08:28 - Physical Examination General: No Apparent Distress HEENT: Positive: PERRL, Normocephaly, Mucus Membranes Moist Neck: Positive: neck supple, trachea midline Cardiac: Positive: Reg Rate and Rhythm Lungs: Positive: Normal Exam Neuro: Positive: Grossly Intact Abdomen: Positive: Unremarkable. Negative: Tender /Rectal: Other (deferred) Skin: Positive: Clear. Negative: Rash Musculoskeletal: No Pain Extremities: Present: normal. Absent: edema - Imaging and Cardiology EKG: report reviewed, image reviewed Echo: report reviewed (08/18/2018 showed EF 55-60%, mild AR, pseudonormalization, mod (CORNELIA 0.85, mean gradient 23mmHg), mild AR, mod MR, RVSP 35-40mmHg.) - Telemetry EKG Rhythm: Sinus Rhythm - EKG Sinus rhythms and dysrhythmias: sinus rhythm
[2019-05-12] MEDS: ASPIRIN 81 MG TAB CHEW PO SCH (14:56)
--- NOTE | 2019-05-12 15:41 | Progress Note ---
Assessment and Plan Assessment and plan: Patient is a 83-year-old [place]i speaking woman with history of CVA with dysarthria, ESRD on HD on MWF, moderate aortic stenosis, moderate mitral regurgitation, Obesity, HTN, DM type 2, DVT not on anticoagulation, CHF with diastolic dysfunction and chronic hypoxic respiratory failure on 2 L home O2 who presents to progressive severe worsening of SOB that started today. Patient was noted by paramedics to have an O2 sat of 80% on oxygen. Patient was placed on CPAP and transported to the hospital. Patient is due for dialysis today. Family at bedside says she has not missed hemodialysis session. Patient came here on 05/02/19 and was admitted for respiratory issues but it appears patient left the hospital AGAINST MEDICAL ADVICE. There is no discharge summary. Patient is denying any chest pain or fever at this time. She is a poor historian even with help of [place]i crane mechanic. * pCXR Impression: Mild bilateral perihilar pulmonary edema * EKG Aflutter RVR 2:1 AV block, HR 105 Acute on chronic hypoxic respiratory failure, present on admission with bilateral pulmonary edema: treat with increase Ultrafiltration with HD, Consult Cardiology and Nephrology Acute on chronic diastolic heart failure with preserved EF and diastolic dysfunction, stable now: Cardiology to be consulted Hypertension, accelerated: low salt diet, and treat with antihypertensives Controlled diabetes mellitus type 2: SSI, accucheck, ada/renal diet ESRD on HD: Consult Nephrology Elevated troponin, above baseline of (0.04), type 2 NC: consult Cardiology, serial CE, troponins, repeat EKG ruled out Aflutter with 2.1 AV block per Cardiology Leukocytosis: work up for infection, UA if able to make urine, blood cultures Dysarthria most likely chronic from old stroke DVT prophylaxis: sq heparin full code stress test tuesday per Cardiology History Interval history: Patient was seen and examined. Follow-up on current diagnosis of CHF. No overnight events reported to me. Patient denies any chest pain, shortness breath, nausea/vomiting or severe headaches. Imaging, nursing note, chart, labs and old chart reviewed. Discussed with patient. Hospitalist Physical - Physical exam Narrative exam: Gen: chronically disable appearing, mild increase accessory muscle on NC O2 NAD, Awake, Alert, Orientated HEENT: NCAT, EOMI, PERRL, OP Clear Neck: supple, no adenopathy, no thyromegaly, no JVD CVS/Heart: RRR, normal S1S2, pulses present bilaterally Chest/Lungs: diminished bs bilateral and bibasilar crackles, Symmetrical chest expansion, good air entry bilaterally GI/Abdomen: soft, NTND, good bowel sounds, no guarding or rebound /Bladder: no suprapubic tenderness, no CVA or paraspinal tenderness Extermity/Skin: no c/c/e, no obvious rash MSK: FROM x 4 Neuro: CN 2-12 grossly intact, no new focal deficits Psych: calm - Constitutional Vitals: Temp Pulse Resp BP Pulse Ox 98.7 F 84 20 155/55 98 05/12/19 13:30 05/12/19 14:56 05/12/19 13:30 05/12/19 14:56 05/12/19 08:28 General appearance: Present: no acute distress Results - Labs CBC & Chem 7: 05/11/19 05:06 05/11/19 05:06 Labs: Laboratory Last Values WBC 19.5 K/mm3 (4.5-11.0) H 05/11/19 05:06 RBC 3.20 M/mm3 (3.65-5.03) L 05/11/19 05:06 Hgb 9.7 gm/dl (10.1-14.3) L 05/11/19 05:06 Hct 29.9 % (30.3-42.9) L 05/11/19 05:06 MCV 94 fl (79-97) 05/11/19 05:06 MCH 30 pg (28-32) 05/11/19 05:06 MCHC 32 % (30-34) 05/11/19 05:06 RDW 17.2 % (13.2-15.2) H 05/11/19 05:06 Plt Count 404 K/mm3 (140-440) 05/11/19 05:06 Lymph % (Auto) 7.4 % (13.4-35.0) L 05/11/19 05:06 [place] % (Auto) 4.1 % (0.0-7.3) 05/11/19 05:06 Eos % (Auto) 3.1 % (0.0-4.3) 05/11/19 05:06 Baso % (Auto) 0.5 % (0.0-1.8) 05/11/19 05:06 Lymph # 1.4 K/mm3 (1.2-5.4) 05/11/19 05:06 [place] # 0.8 K/mm3 (0.0-0.8) 05/11/19 05:06 Eos # 0.6 K/mm3 (0.0-0.4) H 05/11/19 05:06 Baso # 0.1 K/mm3 (0.0-0.1) 05/11/19 05:06 Seg Neutrophils % 84.9 % (40.0-70.0) H 05/11/19 05:06 Seg Neutrophils # 16.5 K/mm3 (1.8-7.7) H 05/11/19 05:06 PT 12.5 Sec. (12.2-14.9) 05/11/19 05:06 INR 0.94 (0.87-1.13) 05/11/19 05:06 APTT 30.3 Sec. (24.2-36.6) 05/11/19 05:06 Sodium 141 mmol/L (137-145) 05/11/19 05:06 Potassium 4.0 mmol/L (3.6-5.0) 05/11/19 05:06 Chloride 102.4 mmol/L (98-107) 05/11/19 05:06 Carbon Dioxide 23 mmol/L (22-30) 05/11/19 05:06 Anion Gap 20 mmol/L 05/11/19 05:06 BUN 28 mg/dL (7-17) H 05/11/19 05:06 Creatinine 3.4 mg/dL (0.7-1.2) H 05/11/19 05:06 Estimated GFR 13 ml/min 05/11/19 05:06 BUN/Creatinine Ratio 8 % 05/11/19 05:06 Glucose 198 mg/dL (65-100) H 05/11/19 05:06 POC Glucose 211 (70-105) H 05/12/19 08:39 Calcium 7.7 mg/dL (8.4-10.2) L 05/11/19 05:06 Magnesium 2.10 mg/dL (1.7-2.3) 05/11/19 05:06 Total Bilirubin 0.20 mg/dL (0.1-1.2) 05/11/19 05:06 AST 17 units/L (5-40) 05/11/19 05:06 ALT 9 units/L (7-56) 05/11/19 05:06 Alkaline Phosphatase 100 units/L (35-129) 05/11/19 05:06 Troponin T 0.116 ng/mL (0.00-0.029) H* 05/11/19 18:55 NT-Pro-B Natriuret Pep 5759 pg/mL (0-900) H 05/11/19 05:06 Total Protein 7.2 g/dL (6.3-8.2) 05/11/19 05:06 Albumin 3.6 g/dL (3.9-5) L 05/11/19 05:06 Albumin/Globulin Ratio 1.0 % 05/11/19 05:06 Triglycerides 108 mg/dL (2-149) 05/11/19 05:06 Cholesterol 186 mg/dL (50-199) 05/11/19 05:06 LDL Cholesterol Direct 130 mg/dL (50-130) 05/11/19 05:06 HDL Cholesterol 52 mg/dL (40-59) 05/11/19 05:06 Cholesterol/HDL Ratio 3.57 % 05/11/19 05:06 Active Medications - Current Medications Current Medications: Generic Name Dose Route Start Last Admin Trade Name Freq PRN Reason Stop Dose Admin Acetaminophen 650 mg 05/11/19 07:15 Tylenol PO Q4H PRN Pain MILD(1-3)/Fever >100.5/MEHTA Acetaminophen/Hydrocodone Bitart 1 each 05/11/19 14:49 [place] 5/325 PO Q4H PRN Pain, Moderate (4-6) Aspirin 81 mg 05/12/19 10:00 05/12/19 14:56 Baby Aspirin PO 81 mg QDAY ANAHY Administration Carvedilol 12.5 mg 05/11/19 22:00 05/12/19 10:00 Coreg PO Not Given BID ANAHY Dextrose 50 ml 05/11/19 14:48 D50w (25gm) Syringe IV Q30MIN PRN Hypoglycemia Protocol Heparin Sodium (Porcine) 5,000 unit 05/12/19 22:00 Heparin SUB-Q Q12HR ANAHY Hydralazine HCl 50 mg 05/11/19 20:00 05/12/19 14:56 Apresoline PO 50 mg TID ANAHY Administration Sodium Chloride 100 mls @ 999 mls/hr 05/11/19 09:00 Nacl 0.9% IV LEVI PRN Hypotension Ceftriaxone Sodium 1 gm in 50 mls @ 100 mls/hr 05/11/19 16:00 05/11/19 20:33 Rocephin/Ns 1 Gm/50 Ml IV 100 mls/hr Q24H ANAHY Administration Protocol Insulin Human Lispro 0 unit 05/11/19 16:30 05/12/19 11:30 Humalog SUB-Q Not Given ACHS ANAHY Protocol Ondansetron HCl 4 mg 05/11/19 07:15 Zofran IV Q8H PRN Nausea And Vomiting Pravastatin Sodium 40 mg 05/11/19 22:00 05/11/19 22:27 Pravachol PO 40 mg QHS ANAHY Administration Sodium Chloride 10 ml 05/11/19 10:00 05/12/19 14:57 Sodium Chloride Flush Syringe 10 Ml IV 10 ml BID ANAHY Administration Sodium Chloride 10 ml 05/11/19 07:15 Sodium Chloride Flush Syringe 10 Ml IV PRN PRN LINE FLUSH
[2019-05-12] MEDS: cefTRIAXone/NS 1 GM/50 ML 1 GM/50 ML BAG IV SCH (15:50)
--- NOTE | 2019-05-12 15:55 | Progress Note ---
Assessment and Plan Impression: * End stage renal disease * Acute hypoxic respiratory failure * Hyperkalemia * Hypertension * Type II DM * Anemia secondary to ESRD * Secondary hyperPTH Plan: * Patient is s/p HD yesterday * Resume outpatient HD schedule today; continue qTTS * UF as tolerated * Cardiology following - work up in progress * Dose medications for renal function * Epogen TIW prn * Renal diet Subjective Date of service: 05/12/19 Interval history: at bedside. Family member helps to translate via phone. Patient is feeling better today. SOB resolved. Objective - Vital Signs Vital signs: Vital Signs - 12hr 05/12/19 05/12/19 05/12/19 04:23 05:17 08:28 Temperature 98.9 F 98.7 F Pulse Rate 78 79 87 Respiratory 20 20 Rate Blood Pressure 148/47 144/52 O2 Sat by Pulse 96 98 Oximetry 05/12/19 05/12/19 05/12/19 08:55 08:57 09:00 Temperature 98.7 F Pulse Rate 78 76 75 Respiratory 20 Rate Blood Pressure 152/65 148/62 157/65 O2 Sat by Pulse Oximetry 05/12/19 05/12/19 05/12/19 09:30 09:46 10:00 Temperature Pulse Rate 81 78 76 Respiratory Rate Blood Pressure 136/59 141/66 148/60 O2 Sat by Pulse Oximetry 05/12/19 05/12/19 05/12/19 10:15 10:30 10:45 Temperature Pulse Rate 73 75 80 Respiratory Rate Blood Pressure 147/62 141/64 149/66 O2 Sat by Pulse Oximetry 05/12/19 05/12/19 05/12/19 11:00 11:15 11:30 Temperature Pulse Rate 81 81 78 Respiratory Rate Blood Pressure 150/68 139/63 142/45 O2 Sat by Pulse Oximetry 05/12/19 05/12/19 05/12/19 11:45 12:00 12:15 Temperature Pulse Rate 75 82 82 Respiratory Rate Blood Pressure 152/63 169/73 155/73 O2 Sat by Pulse Oximetry 05/12/19 05/12/19 13:30 14:56 Temperature 98.7 F Pulse Rate 78 84 Respiratory 20 Rate Blood Pressure 171/72 155/55 O2 Sat by Pulse Oximetry - General Appearance General appearance: well-developed, well-nourished EENT: ATNC Cardiology: regular, S1S2, systolic murmur (harsh 3/6 SM) Gastrointestinal: normal Integumentary: no rash, warm and dry Musculoskeletal: other (no edema) Psychiatric: cooperative - Lab 05/11/19 05:06 05/11/19 05:06 Most recent lab results Calcium 7.7 mg/dL (8.4-10.2) L 05/11/19 05:06 Magnesium 2.10 mg/dL (1.7-2.3) 05/11/19 05:06 Medications & Allergies - Medications Allergies/Adverse Reactions: Allergies No Known Allergies Allergy (Verified 05/02/19 08:02) Home Medications: Home Medications Medication Instructions Recorded Confirmed Last Taken Type amLODIPine 10 mg PO DAILY #30 tablet 08/24/18 05/02/19 05/01/19 Rx ALBUTEROL NEB's [Proventil 0.083% 2.5 mg IH Q6HRT PRN #30 nebu 09/02/18 05/02/19 05/01/19 Rx NEBS] Acetaminophen [Acetaminophen TAB] 650 mg PO Q4H PRN #15 tablet 09/02/18 05/02/19 05/01/19 Rx Furosemide [Lasix] 20 mg PO BID #60 tablet 09/02/18 05/02/19 05/01/19 Rx hydrALAZINE [Apresoline TAB] 50 mg PO TID #90 tablet 09/02/18 05/02/19 05/01/19 Rx Aspirin [Aspirin BABY CHEW TAB] 81 mg PO QDAY 05/02/19 05/02/19 05/01/19 History Carvedilol [Coreg] 12.5 mg PO BID 05/02/19 05/02/19 05/01/19 History Fenofibrate 160 mg PO TID 05/02/19 05/02/19 05/01/19 History Icosapent Ethyl [Vascepa] 1 gm PO QID 05/02/19 05/02/19 05/01/19 History Metformin HCl [metFORMIN] 1,000 mg PO BID 05/02/19 05/02/19 05/01/19 History Simvastatin 20 mg PO QHS 05/02/19 05/02/19 05/01/19 History cloNIDine [Catapres] 0.1 mg PO TID 05/02/19 05/02/19 05/01/19 History Active Medications: Generic Name Dose Route Start Last Admin Trade Name Agustin PRN Reason Stop Dose Admin Acetaminophen 650 mg 05/11/19 07:15 Tylenol PO Q4H PRN Pain MILD(1-3)/Fever >100.5/MEHTA Acetaminophen/Hydrocodone Bitart 1 each 05/11/19 14:49 Given 5/325 PO Q4H PRN Pain, Moderate (4-6) Aspirin 81 mg 05/12/19 10:00 05/12/19 14:56 Baby Aspirin PO 81 mg QDAY ANAHY Administration Carvedilol 12.5 mg 05/11/19 22:00 05/12/19 10:00 Coreg PO Not Given BID ANAHY Dextrose 50 ml 05/11/19 14:48 D50w (25gm) Syringe IV Q30MIN PRN Hypoglycemia Protocol Heparin Sodium (Porcine) 5,000 unit 05/12/19 22:00 Heparin SUB-Q Q12HR ANAHY Hydralazine HCl 50 mg 05/11/19 20:00 05/12/19 14:56 Apresoline PO 50 mg TID ANAHY Administration Sodium Chloride 100 mls @ 999 mls/hr 05/11/19 09:00 Nacl 0.9% IV LEVI PRN Hypotension Ceftriaxone Sodium 1 gm in 50 mls @ 100 mls/hr 05/11/19 16:00 05/12/19 15:50 Rocephin/Ns 1 Gm/50 Ml IV 100 mls/hr Q24H ANAHY Administration Protocol Insulin Human Lispro 0 unit 05/11/19 16:30 05/12/19 11:30 Humalog SUB-Q Not Given ACHS ANAHY Protocol Ondansetron HCl 4 mg 05/11/19 07:15 Zofran IV Q8H PRN Nausea And Vomiting Pravastatin Sodium 40 mg 05/11/19 22:00 05/11/19 22:27 Pravachol PO 40 mg QHS ANAHY Administration Sodium Chloride 10 ml 05/11/19 10:00 05/12/19 14:57 Sodium Chloride Flush Syringe 10 Ml IV 10 ml BID ANAHY Administration Sodium Chloride 10 ml 05/11/19 07:15 Sodium Chloride Flush Syringe 10 Ml IV PRN PRN LINE FLUSH
[2019-05-12] MEDS: PRAVASTATIN 40 MG TAB PO SCH (21:45)
[2019-05-12] MEDS: HEPARIN 5,000 UNIT/1 ML VIAL SUB-Q SCH (21:46)
[2019-05-13] MEDS: hydrALAZINE 25 MG TAB PO SCH ×3 (08:00→21:10)
[2019-05-13] MEDS: INSULIN LISPRO 100 UNIT/ML SUB-Q SCH ×4 (09:50→22:08)
[2019-05-13] MEDS: carvediloL 12.5 MG TAB PO SCH ×2 (09:51→22:05)
[2019-05-13] MEDS: ASPIRIN 81 MG TAB CHEW PO SCH (09:51)
[2019-05-13] MEDS: HEPARIN 5,000 UNIT/1 ML VIAL SUB-Q SCH ×2 (09:52→22:04)
--- NOTE | 2019-05-13 09:53 | Progress Note ---
Assessment and Plan The patient's cardiac status is stable. Volume status is greatly improved - continue optimization per nephrology. Natalia scheduled for tomorrow. Continue current cardiac management for now. The patient has been seen in conjunction with Dr. Madden, who agrees with the assessment and plan. - Patient Problems (1) Acute heart failure with preserved ejection fraction Current Visit: Yes Status: Chronic (2) Acute and chronic respiratory failure ([id number]) Current Visit: Yes Status: Acute (3) Fluid overload Current Visit: Yes Status: Acute Qualifiers: Hypervolemia type: unspecified Qualified Code(s): E87.70 - Fluid overload, unspecified (4) Hypertension Current Visit: Yes Status: Chronic (5) End stage renal disease on dialysis Current Visit: Yes Status: Chronic (6) Anemia in chronic kidney disease Current Visit: Yes Status: Chronic Qualifiers: Chronic kidney disease stage: stage 4 (severe) Qualified Code(s): N18.4 - Chronic kidney disease, stage 4 (severe); D63.1 - Anemia in chronic kidney disease (7) History of CVA (cerebrovascular accident) Current Visit: Yes Status: Chronic (8) History of DVT (deep vein thrombosis) Current Visit: Yes Status: Chronic (9) Moderate aortic stenosis Current Visit: Yes Status: Chronic (10) NSTEMI (non-ST elevated myocardial infarction) Current Visit: Yes Status: Chronic (11) Type 2 diabetes mellitus Current Visit: No Status: Acute Qualifiers: Diabetes mellitus terminal carman insulin use: without group home use Diabetes mellitus complication status: with kidney complications Diabetes mellitus complication detail: with chronic kidney disease Chronic kidney disease stage: stage 3 (moderate) Qualified Code(s): E11.22 - Type 2 diabetes mellitus with diabetic chronic kidney disease; N18.3 - Chronic kidney disease, stage 3 (moderate) Subjective Date of service: 05/13/19 Interval history: Patient evaluated with assistance of grandson translating over the phone. She is lying in bed in NAD; reports feeling better and wants to go home. Telemetry reviewed - SR in 80s. Objective Last Vital Signs Temp 98.8 F 05/13/19 04:45 Pulse 82 05/13/19 04:45 Resp 16 05/13/19 04:45 BP 140/54 05/13/19 04:45 Pulse Ox 97 05/13/19 04:45 - Physical Examination General: No Apparent Distress HEENT: Positive: PERRL, Normocephaly, Mucus Membranes Moist Neck: Positive: neck supple, trachea midline Cardiac: Positive: Reg Rate and Rhythm, Audible Murmur Lungs: Positive: Normal Exam Neuro: Positive: Grossly Intact Abdomen: Positive: Unremarkable. Negative: Tender /Rectal: Other (deferred) Skin: Positive: Clear. Negative: Rash Musculoskeletal: No Pain Extremities: Present: normal. Absent: edema - Imaging and Cardiology EKG: report reviewed, image reviewed Echo: report reviewed (08/18/2018 showed EF 55-60%, mild AR, pseudonormalization, mod ([place] 0.85, mean gradient 23mmHg), mild AR, mod MR, RVSP 35-40mmHg.) - EKG Sinus rhythms and dysrhythmias: sinus rhythm
--- NOTE | 2019-05-13 14:52 | Progress Note ---
Assessment and Plan Assessment and plan: Patient is a 83-year-old Ukrainian speaking woman with history of CVA with dysarthria, ESRD on HD on MWF, moderate aortic stenosis, moderate mitral regurgitation, Obesity, HTN, DM type 2, DVT not on anticoagulation, CHF with diastolic dysfunction and chronic hypoxic respiratory failure on 2 L home O2 who presents to progressive severe worsening of SOB that started today. Patient was noted by paramedics to have an O2 sat of 80% on oxygen. Patient was placed on CPAP and transported to the hospital. Patient is due for dialysis today. Family at bedside says she has not missed hemodialysis session. Patient came here on 05/02/19 and was admitted for respiratory issues but it appears patient left the hospital AGAINST MEDICAL ADVICE. There is no discharge summary. Patient is denying any chest pain or fever at this time. She is a poor historian even with help of Ukrainian payable representative. * pCXR Impression: Mild bilateral perihilar pulmonary edema * EKG Aflutter RVR 2:1 AV block, HR 105 Acute on chronic hypoxic respiratory failure, present on admission with bilateral pulmonary edema: treat with increase Ultrafiltration with HD, Consult Cardiology and Nephrology Acute on chronic diastolic heart failure with preserved EF and diastolic dysfunction, stable now: Cardiology to be consulted Hypertension, accelerated: low salt diet, and treat with antihypertensives Controlled diabetes mellitus type 2: SSI, accucheck, ada/renal diet ESRD on HD: Consult Nephrology Elevated troponin, above baseline of (0.04), type 2 NV: consult Cardiology, serial CE, troponins, repeat EKG ruled out Aflutter with 2.1 AV block per Cardiology Leukocytosis: work up for infection, UA if able to make urine, blood cultures Dysarthria most likely chronic from old stroke DVT prophylaxis: sq heparin full code Stress test tuesday per Cardiology Patient refusing lab results, grandson name, Boy, was the payable representative. History Interval history: Patient was seen and examined. Follow-up on current diagnosis of CHF. No overnight events reported to me. Patient denies any chest pain, shortness breath, nausea/vomiting or severe headaches. Imaging, nursing note, chart, labs and old chart reviewed. Discussed with patient. Hospitalist Physical - Physical exam Narrative exam: Gen: chronically disable appearing, mild increase accessory muscle on NC O2 NAD, Awake, Alert, Orientated HEENT: NCAT, EOMI, PERRL, OP Clear Neck: supple, no adenopathy, no thyromegaly, no JVD CVS/Heart: RRR, normal S1S2, pulses present bilaterally Chest/Lungs: diminished bs bilateral and bibasilar crackles, Symmetrical chest expansion, good air entry bilaterally GI/Abdomen: soft, NTND, good bowel sounds, no guarding or rebound /Bladder: no suprapubic tenderness, no CVA or paraspinal tenderness Extermity/Skin: no c/c/e, no obvious rash MSK: FROM x 4 Neuro: CN 2-12 grossly intact, no new focal deficits Psych: calm - Constitutional Vitals: Temp Pulse Resp BP Pulse Ox 99.0 F 86 19 122/51 98 05/13/19 11:30 05/13/19 14:36 05/13/19 11:30 05/13/19 14:36 05/13/19 11:30 General appearance: Present: no acute distress Results - Labs CBC & Chem 7: 05/11/19 05:06 05/11/19 05:06 Labs: Laboratory Last Values WBC 19.5 K/mm3 (4.5-11.0) H 05/11/19 05:06 RBC 3.20 M/mm3 (3.65-5.03) L 05/11/19 05:06 Hgb 9.7 gm/dl (10.1-14.3) L 05/11/19 05:06 Hct 29.9 % (30.3-42.9) L 05/11/19 05:06 MCV 94 fl (79-97) 05/11/19 05:06 MCH 30 pg (28-32) 05/11/19 05:06 MCHC 32 % (30-34) 05/11/19 05:06 RDW 17.2 % (13.2-15.2) H 05/11/19 05:06 Plt Count 404 K/mm3 (140-440) 05/11/19 05:06 Lymph % (Auto) 7.4 % (13.4-35.0) L 05/11/19 05:06 [place] % (Auto) 4.1 % (0.0-7.3) 05/11/19 05:06 Eos % (Auto) 3.1 % (0.0-4.3) 05/11/19 05:06 Baso % (Auto) 0.5 % (0.0-1.8) 05/11/19 05:06 Lymph # 1.4 K/mm3 (1.2-5.4) 05/11/19 05:06 [place] # 0.8 K/mm3 (0.0-0.8) 05/11/19 05:06 Eos # 0.6 K/mm3 (0.0-0.4) H 05/11/19 05:06 Baso # 0.1 K/mm3 (0.0-0.1) 05/11/19 05:06 Seg Neutrophils % 84.9 % (40.0-70.0) H 05/11/19 05:06 Seg Neutrophils # 16.5 K/mm3 (1.8-7.7) H 05/11/19 05:06 PT 12.5 Sec. (12.2-14.9) 05/11/19 05:06 INR 0.94 (0.87-1.13) 05/11/19 05:06 APTT 30.3 Sec. (24.2-36.6) 05/11/19 05:06 Sodium 141 mmol/L (137-145) 05/11/19 05:06 Potassium 4.0 mmol/L (3.6-5.0) 05/11/19 05:06 Chloride 102.4 mmol/L (98-107) 05/11/19 05:06 Carbon Dioxide 23 mmol/L (22-30) 05/11/19 05:06 Anion Gap 20 mmol/L 05/11/19 05:06 BUN 28 mg/dL (7-17) H 05/11/19 05:06 Creatinine 3.4 mg/dL (0.7-1.2) H 05/11/19 05:06 Estimated GFR 13 ml/min 05/11/19 05:06 BUN/Creatinine Ratio 8 % 05/11/19 05:06 Glucose 198 mg/dL (65-100) H 05/11/19 05:06 POC Glucose 216 (70-105) H 05/13/19 11:54 Calcium 7.7 mg/dL (8.4-10.2) L 05/11/19 05:06 Magnesium 2.10 mg/dL (1.7-2.3) 05/11/19 05:06 Total Bilirubin 0.20 mg/dL (0.1-1.2) 05/11/19 05:06 AST 17 units/L (5-40) 05/11/19 05:06 ALT 9 units/L (7-56) 05/11/19 05:06 Alkaline Phosphatase 100 units/L (35-129) 05/11/19 05:06 Troponin T 0.116 ng/mL (0.00-0.029) H* 05/11/19 18:55 NT-Pro-B Natriuret Pep 5759 pg/mL (0-900) H 05/11/19 05:06 Total Protein 7.2 g/dL (6.3-8.2) 05/11/19 05:06 Albumin 3.6 g/dL (3.9-5) L 05/11/19 05:06 Albumin/Globulin Ratio 1.0 % 05/11/19 05:06 Triglycerides 108 mg/dL (2-149) 05/11/19 05:06 Cholesterol 186 mg/dL (50-199) 05/11/19 05:06 LDL Cholesterol Direct 130 mg/dL (50-130) 05/11/19 05:06 HDL Cholesterol 52 mg/dL (40-59) 05/11/19 05:06 Cholesterol/HDL Ratio 3.57 % 05/11/19 05:06 Active Medications - Current Medications Current Medications: Generic Name Dose Route Start Last Admin Trade Name Freq PRN Reason Stop Dose Admin Acetaminophen 650 mg 05/11/19 07:15 Tylenol PO Q4H PRN Pain MILD(1-3)/Fever >100.5/MEHTA Acetaminophen/Hydrocodone Bitart 1 each 05/11/19 14:49 [place] 5/325 PO Q4H PRN Pain, Moderate (4-6) Aspirin 81 mg 05/12/19 10:00 05/13/19 09:51 Baby Aspirin PO 81 mg QDAY ANAHY Administration Carvedilol 12.5 mg 05/11/19 22:00 05/13/19 09:51 Coreg PO 12.5 mg BID ANAHY Administration Dextrose 50 ml 05/11/19 14:48 D50w (25gm) Syringe IV Q30MIN PRN Hypoglycemia Protocol Heparin Sodium (Porcine) 5,000 unit 05/12/19 22:00 05/13/19 09:52 Heparin SUB-Q 5,000 unit Q12HR ANAHY Administration Hydralazine HCl 50 mg 05/11/19 20:00 05/13/19 14:36 Apresoline PO 50 mg TID ANAHY Administration Sodium Chloride 100 mls @ 999 mls/hr 05/11/19 09:00 Nacl 0.9% IV LEVI PRN Hypotension Ceftriaxone Sodium 1 gm in 50 mls @ 100 mls/hr 05/11/19 16:00 05/12/19 15:50 Rocephin/Ns 1 Gm/50 Ml IV 100 mls/hr Q24H ANAHY Administration Protocol Insulin Human Lispro 0 unit 05/11/19 16:30 05/13/19 11:30 Humalog SUB-Q 3 unit ACHS ANAHY Administration Protocol Ondansetron HCl 4 mg 05/11/19 07:15 Zofran IV Q8H PRN Nausea And Vomiting Pravastatin Sodium 40 mg 05/11/19 22:00 05/12/19 21:45 Pravachol PO 40 mg QHS ANAHY Administration Sodium Chloride 10 ml 05/11/19 10:00 05/13/19 09:52 Sodium Chloride Flush Syringe 10 Ml IV 10 ml BID ANAHY Administration Sodium Chloride 10 ml 05/11/19 07:15 Sodium Chloride Flush Syringe 10 Ml IV PRN PRN LINE FLUSH
--- NOTE | 2019-05-13 15:28 | Progress Note ---
Assessment and Plan Impression: * End stage renal disease * Acute hypoxic respiratory failure * Hyperkalemia - resolved * Hypertension * Type II DM * Anemia secondary to ESRD * Secondary hyperPTH Plan: * Patient is s/p HD Tuesday and Tuesday * Continue outpatient MWF schedule * UF as tolerated * Cardiology following - work up in progress; note plans for MPI tomorrow, TTE pending * Dose medications for renal function * Epogen TIW prn * Renal diet Subjective Date of service: 05/13/19 Interval history: Family member assists in translating. Patient is feeling better. Reports SOB improved. Objective - Vital Signs Vital signs: Vital Signs - 12hr 05/13/19 05/13/19 05/13/19 04:00 04:45 09:51 Temperature 98.8 F Pulse Rate 82 82 78 Pulse Rate [ Apical] Pulse Rate [ Left Radial] Pulse Rate [ Right Radial] Respiratory 16 Rate Blood Pressure 140/54 144/52 Blood Pressure [Left] O2 Sat by Pulse 97 Oximetry 05/13/19 05/13/19 05/13/19 10:00 11:30 12:00 Temperature 99.0 F Pulse Rate 82 84 82 Pulse Rate [ 78 Apical] Pulse Rate [ 78 Left Radial] Pulse Rate [ 78 Right Radial] Respiratory 19 19 Rate Blood Pressure Blood Pressure 142/49 [Left] O2 Sat by Pulse 98 98 Oximetry 05/13/19 14:36 Temperature Pulse Rate 86 Pulse Rate [ Apical] Pulse Rate [ Left Radial] Pulse Rate [ Right Radial] Respiratory Rate Blood Pressure 122/51 Blood Pressure [Left] O2 Sat by Pulse Oximetry - General Appearance General appearance: well-developed, well-nourished EENT: ATNC Respiratory: Present: Clear to Ascultation Cardiology: regular, S1S2, systolic murmur (harsh 3/6 SM) Gastrointestinal: normal, no tenderness, no distended Integumentary: warm and dry Musculoskeletal: other (no edema) Psychiatric: cooperative - Lab 05/11/19 05:06 05/11/19 05:06 Most recent lab results Calcium 7.7 mg/dL (8.4-10.2) L 05/11/19 05:06 Magnesium 2.10 mg/dL (1.7-2.3) 05/11/19 05:06 Medications & Allergies - Medications Allergies/Adverse Reactions: Allergies No Known Allergies Allergy (Verified 05/02/19 08:02) Home Medications: Home Medications Medication Instructions Recorded Confirmed Last Taken Type amLODIPine 10 mg PO DAILY #30 tablet 08/24/18 05/02/19 05/01/19 Rx ALBUTEROL NEB's [Proventil 0.083% 2.5 mg IH Q6HRT PRN #30 nebu 09/02/18 05/02/19 05/01/19 Rx NEBS] Acetaminophen [Acetaminophen TAB] 650 mg PO Q4H PRN #15 tablet 09/02/18 05/02/19 05/01/19 Rx Furosemide [Lasix] 20 mg PO BID #60 tablet 09/02/18 05/02/19 05/01/19 Rx hydrALAZINE [Apresoline TAB] 50 mg PO TID #90 tablet 09/02/18 05/02/19 05/01/19 Rx Aspirin [Aspirin BABY CHEW TAB] 81 mg PO QDAY 05/02/19 05/02/19 05/01/19 History Carvedilol [Coreg] 12.5 mg PO BID 05/02/19 05/02/19 05/01/19 History Fenofibrate 160 mg PO TID 05/02/19 05/02/19 05/01/19 History Icosapent Ethyl [Vascepa] 1 gm PO QID 05/02/19 05/02/19 05/01/19 History Metformin HCl [metFORMIN] 1,000 mg PO BID 05/02/19 05/02/19 05/01/19 History Simvastatin 20 mg PO QHS 05/02/19 05/02/19 05/01/19 History cloNIDine [Catapres] 0.1 mg PO TID 05/02/19 05/02/19 05/01/19 History Active Medications: Generic Name Dose Route Start Last Admin Trade Name Freq PRN Reason Stop Dose Admin Acetaminophen 650 mg 05/11/19 07:15 Tylenol PO Q4H PRN Pain MILD(1-3)/Fever >100.5/MEHTA Acetaminophen/Hydrocodone Bitart 1 each 05/11/19 14:49 [place] 5/325 PO Q4H PRN Pain, Moderate (4-6) Aspirin 81 mg 05/12/19 10:00 05/13/19 09:51 Baby Aspirin PO 81 mg QDAY ANAHY Administration Carvedilol 12.5 mg 05/11/19 22:00 05/13/19 09:51 Coreg PO 12.5 mg BID ANAHY Administration Dextrose 50 ml 05/11/19 14:48 D50w (25gm) Syringe IV Q30MIN PRN Hypoglycemia Protocol Heparin Sodium (Porcine) 5,000 unit 05/12/19 22:00 05/13/19 09:52 Heparin SUB-Q 5,000 unit Q12HR ANAHY Administration Hydralazine HCl 50 mg 05/11/19 20:00 05/13/19 14:36 Apresoline PO 50 mg TID ANAHY Administration Sodium Chloride 100 mls @ 999 mls/hr 05/11/19 09:00 Nacl 0.9% IV LEVI PRN Hypotension Ceftriaxone Sodium 1 gm in 50 mls @ 100 mls/hr 05/11/19 16:00 05/12/19 15:50 Rocephin/Ns 1 Gm/50 Ml IV 100 mls/hr Q24H ANAHY Administration Protocol Insulin Human Lispro 0 unit 05/11/19 16:30 05/13/19 11:30 Humalog SUB-Q 3 unit ACHS ANAHY Administration Protocol Ondansetron HCl 4 mg 05/11/19 07:15 Zofran IV Q8H PRN Nausea And Vomiting Pravastatin Sodium 40 mg 05/11/19 22:00 05/12/19 21:45 Pravachol PO 40 mg QHS ANAHY Administration Sodium Chloride 10 ml 05/11/19 10:00 05/13/19 09:52 Sodium Chloride Flush Syringe 10 Ml IV 10 ml BID ANAHY Administration Sodium Chloride 10 ml 05/11/19 07:15 Sodium Chloride Flush Syringe 10 Ml IV PRN PRN LINE FLUSH
[2019-05-13] MEDS: cefTRIAXone/NS 1 GM/50 ML 1 GM/50 ML BAG IV SCH (16:00)
[2019-05-13] MEDS ORDERED: SODIUM CHLORIDE 0.9% 100 ML IV PRN (16:57)
[2019-05-13] MEDS ORDERED: HEPARIN 10,000 UNIT/1 ML VIAL IV PRN (16:57)
[2019-05-13] MEDS ORDERED: EPOETIN ALFA 10,000 UNIT/1 ML INJ IV PRN (16:57)
[2019-05-13] MEDS ORDERED: SODIUM CHLORIDE 0.9% 1000 ML 1,000 ML IV PRN (16:57)
[2019-05-13] MEDS: PRAVASTATIN 40 MG TAB PO SCH (22:06)
[2019-05-14] MEDS ORDERED: REGADENOSON 0.4 MG/5 ML INJ IV ONE ×2 (06:52→06:56)
[2019-05-14] MEDS: hydrALAZINE 25 MG TAB PO SCH ×2 (08:00→17:26)
[2019-05-14] MEDS: INSULIN LISPRO 100 UNIT/ML SUB-Q SCH ×3 (08:06→17:13)
--- NOTE | 2019-05-14 10:32 | Progress Note ---
Assessment and Plan Impression: * End stage renal disease * Acute hypoxic respiratory failure * Hyperkalemia - resolved * Hypertension * Type II DM * Anemia secondary to ESRD * Secondary hyperPTH Plan: * Continue outpatient MWF schedule, due today * Had extra HD this past Tuesday for hyperkalemia * UF as tolerated * Cardiology following - work up in progress; s/p MPI this AM. TTE pending * Dose medications for renal function * Epogen TIW prn * Renal diet Thank you for this interesting consult; we will continue to follow for renal related issues. Subjective Date of service: 05/14/19 Principal diagnosis: dyspnea Interval history: Family member assists in translating via phone. Patient is feeling well, no acute issues noted. Objective - Exam Narrative Exam: General appearance: well-developed, well-nourished, non-Australian speaking EENT: ATNC Respiratory: Present: Clear to Auscultation Cardiology: regular, S1S2, systolic murmur noted Gastrointestinal: normal, no tenderness, no distension Integumentary: warm and dry Musculoskeletal: other (no edema) Psychiatric: cooperative - Vital Signs Vital signs: Vital Signs - 12hr 05/13/19 05/14/19 05/14/19 23:55 01:00 04:16 Temperature 98.3 F 98.3 F Pulse Rate 81 85 81 Respiratory 16 16 Rate Blood Pressure 140/47 170/62 O2 Sat by Pulse 97 95 Oximetry 05/14/19 05/14/19 07:28 09:00 Temperature 99.1 F Pulse Rate 84 85 Respiratory 18 Rate Blood Pressure 145/42 O2 Sat by Pulse 100 Oximetry - Lab 05/11/19 05:06 05/11/19 05:06 Most recent lab results Calcium 7.7 mg/dL (8.4-10.2) L 05/11/19 05:06 Magnesium 2.10 mg/dL (1.7-2.3) 05/11/19 05:06 Medications & Allergies - Medications Allergies/Adverse Reactions: Allergies No Known Allergies Allergy (Verified 05/02/19 08:02) Home Medications: Home Medications Medication Instructions Recorded Confirmed Last Taken Type amLODIPine 10 mg PO DAILY #30 tablet 08/24/18 05/14/19 05/01/19 Rx ALBUTEROL NEB's [Proventil 0.083% 2.5 mg IH Q6HRT PRN #30 nebu 09/02/18 05/14/19 05/01/19 Rx NEBS] Acetaminophen [Acetaminophen TAB] 650 mg PO Q4H PRN #15 tablet 09/02/18 05/14/19 05/01/19 Rx Furosemide [Lasix] 20 mg PO BID #60 tablet 09/02/18 05/14/19 05/01/19 Rx hydrALAZINE [Apresoline TAB] 50 mg PO TID #90 tablet 09/02/18 05/14/19 05/01/19 Rx Aspirin [Aspirin BABY CHEW TAB] 81 mg PO QDAY 05/02/19 05/14/19 05/01/19 History Carvedilol [Coreg] 12.5 mg PO BID 05/02/19 05/14/19 05/01/19 History Fenofibrate 160 mg PO TID 05/02/19 05/14/19 05/01/19 History Icosapent Ethyl [Vascepa] 1 gm PO QID 05/02/19 05/14/19 05/01/19 History Metformin HCl [metFORMIN] 1,000 mg PO BID 05/02/19 05/14/19 05/01/19 History Simvastatin 20 mg PO QHS 05/02/19 05/14/19 05/01/19 History cloNIDine [Catapres] 0.1 mg PO TID 05/02/19 05/14/19 05/01/19 History Active Medications: Generic Name Dose Route Start Last Admin Trade Name Freq PRN Reason Stop Dose Admin Acetaminophen 650 mg 05/11/19 07:15 Tylenol PO Q4H PRN Pain MILD(1-3)/Fever >100.5/MEHTA Acetaminophen/Hydrocodone Bitart 1 each 05/11/19 14:49 [place] 5/325 PO Q4H PRN Pain, Moderate (4-6) Aspirin 81 mg 05/12/19 10:00 05/13/19 09:51 Baby Aspirin PO 81 mg QDAY ANAHY Administration Carvedilol 12.5 mg 05/11/19 22:00 05/13/19 22:05 Coreg PO 12.5 mg BID ANAHY Administration Dextrose 50 ml 05/11/19 14:48 D50w (25gm) Syringe IV Q30MIN PRN Hypoglycemia Protocol Epoetin Gabe 10,000 unit 05/13/19 16:57 Procrit IV LEVI PRN hemodialysis Heparin Sodium (Porcine) 5,000 unit 05/12/19 22:00 05/13/19 22:04 Heparin SUB-Q 5,000 unit Q12HR ANAHY Administration Heparin Sodium (Porcine) 5,000 unit 05/13/19 16:57 Heparin IV LEVI PRN hemodialysis Hydralazine HCl 50 mg 05/11/19 20:00 05/13/19 21:10 Apresoline PO 50 mg TID ANAHY Administration Ceftriaxone Sodium 1 gm in 50 mls @ 100 mls/hr 05/11/19 16:00 05/13/19 16:00 Rocephin/Ns 1 Gm/50 Ml IV 100 mls/hr Q24H ANAHY Administration Protocol Sodium Chloride 1,000 mls @ 100 mls/hr 05/13/19 16:57 Nacl 0.9% 1000 Ml IV LEVI PRN FOR MUSCLE CRAMPS DURING HEMO Insulin Human Lispro 0 unit 05/11/19 16:30 05/14/19 08:06 Humalog SUB-Q Not Given ACHS [facility] Protocol Ondansetron HCl 4 mg 05/11/19 07:15 Zofran IV Q8H PRN Nausea And Vomiting Pravastatin Sodium 40 mg 05/11/19 22:00 05/13/19 22:06 Pravachol PO 40 mg QHS ANAHY Administration Sodium Chloride 10 ml 05/11/19 10:00 05/13/19 22:06 Sodium Chloride Flush Syringe 10 Ml IV 10 ml BID ANAHY Administration Sodium Chloride 10 ml 05/11/19 07:15 Sodium Chloride Flush Syringe 10 Ml IV PRN PRN LINE FLUSH
--- NOTE | 2019-05-14 12:52 | Treadmill Report ---
NUCLEAR PERFUSION SCAN REFERRING PHYSICIAN: Hospitalist service. PROTOCOL: The patient was brought to the stress lab in a postabsorptive state, given 10 mCi of technetium 99m at rest. The patient underwent rest imaging. The patient underwent Lexiscan stress test. At peak stress, the patient was given 26 mCi pool technician 99m. Shortly thereafter, the patient underwent stress imaging. Raw imaging reveals mild GI artifact, no significant motion artifact. SPECT imaging examined carefully in horizontal long axis, vertical long axis, short axis views. There is normal homogenous uptake of radioisotope in all parts segments. No evidence of significant fixed or reversible perfusion defects suggestive of prior infarction or ischemia. Gated wall motion reveals normal systolic thickening, calculated ejection fraction of 61%. No TID. CONCLUSIONS: 1. Normal myocardial perfusion scan without evidence of active ischemia or prior infarction. 2. Normal left ventricular systolic performance without evidence of transient ischemic dilatation or stress-induced segmental wall motion abnormalities. 3. Normal Lexiscan stress test without evidence of diagnostic ST changes; arrhythmias or chest pain during stress or recovery. JOB# [id number] SBM/NTS
--- NOTE | 2019-05-14 12:53 | Progress Note ---
Assessment and Plan S/p lexiscan MPI stress test this AM which was negative. F/u limited echo for reevaluation of . The patient has been seen in conjunction with Dr. Rosales who agrees with the assessment and plan of care. - Patient Problems (1) Acute heart failure with preserved ejection fraction Current Visit: Yes Status: Chronic (2) Fluid overload Current Visit: Yes Status: Acute Qualifiers: Hypervolemia type: unspecified Qualified Code(s): E87.70 - Fluid overload, unspecified (3) End stage renal disease on dialysis Current Visit: Yes Status: Chronic (4) Moderate aortic stenosis Current Visit: Yes Status: Chronic (5) HTN (hypertension), benign Current Visit: Yes Status: Chronic (6) Diabetes mellitus type 2 in nonobese Current Visit: Yes Status: Chronic (7) History of CVA (cerebrovascular accident) Current Visit: Yes Status: Chronic (8) History of DVT (deep vein thrombosis) Current Visit: Yes Status: Chronic (9) Chronic respiratory failure Current Visit: Yes Status: Chronic (10) Anemia in chronic kidney disease Current Visit: Yes Status: Chronic Qualifiers: Chronic kidney disease stage: stage 4 (severe) Qualified Code(s): N18.4 - Chronic kidney disease, stage 4 (severe); D63.1 - Anemia in chronic kidney disease (11) NSTEMI (non-ST elevated myocardial infarction) Current Visit: Yes Status: Chronic Plan to address problem: suspect type II Subjective Date of service: 05/14/19 Principal diagnosis: dyspnea Objective Vital Signs Temp Pulse Pulse Pulse Pulse Resp BP 05/14/19 12:00 86 138/65 05/14/19 11:45 87 158/64 05/14/19 11:30 83 179/75 05/14/19 11:15 81 186/73 05/14/19 11:00 73 190/63 05/14/19 10:45 78 178/57 05/14/19 10:30 77 168/56 05/14/19 10:15 99.3 F 79 16 182/74 05/14/19 10:00 18 05/14/19 09:18 150/52 05/14/19 09:17 148/52 05/14/19 09:16 154/53 05/14/19 09:15 151/60 05/14/19 09:14 143/50 05/14/19 09:00 85 11/11/19 08:44 179/68 05/14/19 07:28 99.1 F 84 18 145/42 05/14/19 04:16 98.3 F 81 16 170/62 05/14/19 01:00 85 05/13/19 23:55 98.3 F 81 16 140/47 05/13/19 22:05 85 156/52 05/13/19 22:00 89 89 89 16 05/13/19 21:10 89 156/52 05/13/19 19:55 98.2 F 89 16 156/52 05/13/19 17:00 85 05/13/19 16:50 98.1 F 81 19 05/13/19 14:36 86 122/51 BP Pulse Ox 05/14/19 12:00 05/14/19 11:45 05/14/19 11:30 05/14/19 11:15 05/14/19 11:00 05/14/19 10:45 05/14/19 10:30 05/14/19 10:15 05/14/19 10:00 05/14/19 09:18 05/14/19 09:17 05/14/19 09:16 05/14/19 09:15 05/14/19 09:14 05/14/19 09:00 05/14/19 08:44 05/14/19 07:28 100 05/14/19 04:16 95 05/14/19 01:00 05/13/19 23:55 97 05/13/19 22:05 05/13/19 22:00 99 05/13/19 21:10 05/13/19 19:55 96 05/13/19 17:00 05/13/19 16:50 159/48 05/13/19 14:36 - Physical Examination General: No Apparent Distress HEENT: Positive: PERRL, Normocephaly, Mucus Membranes Moist Neck: Positive: neck supple, trachea midline Neuro: Positive: Grossly Intact Abdomen: Positive: Unremarkable. Negative: Tender /Rectal: Other (deferred) Skin: Positive: Clear. Negative: Rash Musculoskeletal: No Pain Extremities: Present: normal. Absent: edema - Imaging and Cardiology EKG: report reviewed, image reviewed Echo: report reviewed (08/18/2018 showed EF 55-60%, mild AR, pseudonormalization, mod ([place] 0.85, mean gradient 23mmHg), mild AR, mod MR, RVSP 35-40mmHg.) - EKG Sinus rhythms and dysrhythmias: sinus rhythm
--- NOTE | 2019-05-14 13:50 | Progress Note ---
Assessment and Plan Assessment and plan: Patient is a 83-year-old [place] speaking woman with history of CVA with dysarthria, ESRD on HD on MWF, moderate aortic stenosis, moderate mitral regurgitation, Obesity, HTN, DM type 2, DVT not on anticoagulation, CHF with diastolic dysfunction and chronic hypoxic respiratory failure on 2 L home O2 who presents to progressive severe worsening of SOB that started today. Patient was noted by paramedics to have an O2 sat of 80% on oxygen. Patient was placed on CPAP and transported to the hospital. Patient is due for dialysis today. Family at bedside says she has not missed hemodialysis session. Patient came here on 05/02/19 and was admitted for respiratory issues but it appears patient left the hospital AGAINST MEDICAL ADVICE. There is no discharge summary. Patient is denying any chest pain or fever at this time. She is a poor historian even with help of [place] network operations technician. Patient refusing lab draws, grandson name, Boy, was the network operations technician. * pCXR Impression: Mild bilateral perihilar pulmonary edema * EKG Aflutter RVR 2:1 AV block, HR 105 Acute on chronic hypoxic respiratory failure, present on admission with bilateral pulmonary edema: treat with increase Ultrafiltration with HD, Consult Cardiology and Nephrology Acute on chronic diastolic heart failure with preserved EF and diastolic dysfunction, stable now: Cardiology to be consulted Hypertension, accelerated: low salt diet, and treat with antihypertensives Controlled diabetes mellitus type 2: SSI, accucheck, ada/renal diet ESRD on HD: Consult Nephrology Elevated troponin, above baseline of (0.04), type 2 CA: consult Cardiology, serial CE, troponins, repeat EKG ruled out Aflutter with 2.1 AV block per Cardiology Leukocytosis: work up for infection, UA if able to make urine, blood cultures Dysarthria most likely chronic from old stroke DVT prophylaxis: sq heparin full code Stress test negative today, await limited view TTE and Cardiology clearance History Interval history: Patient was seen and examined. Follow-up on current diagnosis of CHF. No overnight events reported to me. Patient denies any chest pain, shortness breath, nausea/vomiting or severe headaches. Imaging, nursing note, chart, labs and old chart reviewed. Discussed with patient. Hospitalist Physical - Physical exam Narrative exam: Gen: chronically disable appearing, mild increase accessory muscle on NC O2 NAD, Awake, Alert, Orientated HEENT: NCAT, EOMI, PERRL, OP Clear Neck: supple, no adenopathy, no thyromegaly, no JVD CVS/Heart: RRR, normal S1S2, pulses present bilaterally Chest/Lungs: diminished bs bilateral and bibasilar crackles, Symmetrical chest expansion, good air entry bilaterally GI/Abdomen: soft, NTND, good bowel sounds, no guarding or rebound /Bladder: no suprapubic tenderness, no CVA or paraspinal tenderness Extermity/Skin: no c/c/e, no obvious rash MSK: FROM x 4 Neuro: CN 2-12 grossly intact, no new focal deficits Psych: calm - Constitutional Vitals: Temp Pulse Resp BP Pulse Ox 99.3 F 86 16 138/65 100 05/14/19 10:15 05/14/19 12:00 05/14/19 10:15 05/14/19 12:00 05/14/19 07:28 General appearance: Present: no acute distress Results - Labs CBC & Chem 7: 05/11/19 05:06 05/11/19 05:06 Labs: Laboratory Last Values WBC 19.5 K/mm3 (4.5-11.0) H 05/11/19 05:06 RBC 3.20 M/mm3 (3.65-5.03) L 05/11/19 05:06 Hgb 9.7 gm/dl (10.1-14.3) L 05/11/19 05:06 Hct 29.9 % (30.3-42.9) L 05/11/19 05:06 MCV 94 fl (79-97) 05/11/19 05:06 MCH 30 pg (28-32) 05/11/19 05:06 MCHC 32 % (30-34) 05/11/19 05:06 RDW 17.2 % (13.2-15.2) H 05/11/19 05:06 Plt Count 404 K/mm3 (140-440) 05/11/19 05:06 Lymph % (Auto) 7.4 % (13.4-35.0) L 05/11/19 05:06 [place] % (Auto) 4.1 % (0.0-7.3) 05/11/19 05:06 Eos % (Auto) 3.1 % (0.0-4.3) 05/11/19 05:06 Baso % (Auto) 0.5 % (0.0-1.8) 05/11/19 05:06 Lymph # 1.4 K/mm3 (1.2-5.4) 05/11/19 05:06 [place] # 0.8 K/mm3 (0.0-0.8) 05/11/19 05:06 Eos # 0.6 K/mm3 (0.0-0.4) H 05/11/19 05:06 Baso # 0.1 K/mm3 (0.0-0.1) 05/11/19 05:06 Seg Neutrophils % 84.9 % (40.0-70.0) H 05/11/19 05:06 Seg Neutrophils # 16.5 K/mm3 (1.8-7.7) H 05/11/19 05:06 PT 12.5 Sec. (12.2-14.9) 05/11/19 05:06 INR 0.94 (0.87-1.13) 05/11/19 05:06 APTT 30.3 Sec. (24.2-36.6) 05/11/19 05:06 Sodium 141 mmol/L (137-145) 05/11/19 05:06 Potassium 4.0 mmol/L (3.6-5.0) 05/11/19 05:06 Chloride 102.4 mmol/L (98-107) 05/11/19 05:06 Carbon Dioxide 23 mmol/L (22-30) 05/11/19 05:06 Anion Gap 20 mmol/L 05/11/19 05:06 BUN 28 mg/dL (7-17) H 05/11/19 05:06 Creatinine 3.4 mg/dL (0.7-1.2) H 05/11/19 05:06 Estimated GFR 13 ml/min 05/11/19 05:06 BUN/Creatinine Ratio 8 % 05/11/19 05:06 Glucose 198 mg/dL (65-100) H 05/11/19 05:06 POC Glucose 164 (70-105) H 05/13/19 21:09 Calcium 7.7 mg/dL (8.4-10.2) L 05/11/19 05:06 Magnesium 2.10 mg/dL (1.7-2.3) 05/11/19 05:06 Total Bilirubin 0.20 mg/dL (0.1-1.2) 05/11/19 05:06 AST 17 units/L (5-40) 05/11/19 05:06 ALT 9 units/L (7-56) 05/11/19 05:06 Alkaline Phosphatase 100 units/L (35-129) 05/11/19 05:06 Troponin T 0.116 ng/mL (0.00-0.029) H* 05/11/19 18:55 NT-Pro-B Natriuret Pep 5759 pg/mL (0-900) H 05/11/19 05:06 Total Protein 7.2 g/dL (6.3-8.2) 05/11/19 05:06 Albumin 3.6 g/dL (3.9-5) L 05/11/19 05:06 Albumin/Globulin Ratio 1.0 % 05/11/19 05:06 Triglycerides 108 mg/dL (2-149) 05/11/19 05:06 Cholesterol 186 mg/dL (50-199) 05/11/19 05:06 LDL Cholesterol Direct 130 mg/dL (50-130) 05/11/19 05:06 HDL Cholesterol 52 mg/dL (40-59) 05/11/19 05:06 Cholesterol/HDL Ratio 3.57 % 05/11/19 05:06 Active Medications - Current Medications Current Medications: Generic Name Dose Route Start Last Admin Trade Name Freq PRN Reason Stop Dose Admin Acetaminophen 650 mg 05/11/19 07:15 Tylenol PO Q4H PRN Pain MILD(1-3)/Fever >100.5/MEHTA Acetaminophen/Hydrocodone Bitart 1 each 05/11/19 14:49 [place] 5/325 PO Q4H PRN Pain, Moderate (4-6) Aspirin 81 mg 05/12/19 10:00 05/13/19 09:51 Baby Aspirin PO 81 mg QDAY ANAHY Administration Carvedilol 12.5 mg 05/11/19 22:00 05/13/19 22:05 Coreg PO 12.5 mg BID ANAHY Administration Dextrose 50 ml 05/11/19 14:48 D50w (25gm) Syringe IV Q30MIN PRN Hypoglycemia Protocol Epoetin Gabe 10,000 unit 05/13/19 16:57 Procrit IV LEVI PRN hemodialysis Heparin Sodium (Porcine) 5,000 unit 05/12/19 22:00 05/13/19 22:04 Heparin SUB-Q 5,000 unit Q12HR ANAHY Administration Heparin Sodium (Porcine) 5,000 unit 05/13/19 16:57 Heparin IV LEVI PRN hemodialysis Hydralazine HCl 50 mg 05/11/19 20:00 05/13/19 21:10 Apresoline PO 50 mg TID ANAHY Administration Ceftriaxone Sodium 1 gm in 50 mls @ 100 mls/hr 05/11/19 16:00 05/13/19 16:00 Rocephin/Ns 1 Gm/50 Ml IV 100 mls/hr Q24H ANAHY Administration Protocol Sodium Chloride 1,000 mls @ 100 mls/hr 05/13/19 16:57 Nacl 0.9% 1000 Ml IV LEVI PRN FOR MUSCLE CRAMPS DURING HEMO Insulin Human Lispro 0 unit 05/11/19 16:30 05/14/19 08:06 Humalog SUB-Q Not Given ACHS [facility] Protocol Ondansetron HCl 4 mg 05/11/19 07:15 Zofran IV Q8H PRN Nausea And Vomiting Pravastatin Sodium 40 mg 05/11/19 22:00 05/13/19 22:06 Pravachol PO 40 mg QHS ANAHY Administration Sodium Chloride 10 ml 05/11/19 10:00 05/13/19 22:06 Sodium Chloride Flush Syringe 10 Ml IV 10 ml BID ANAHY Administration Sodium Chloride 10 ml 05/11/19 07:15 Sodium Chloride Flush Syringe 10 Ml IV PRN PRN LINE FLUSH
--- NOTE | 2019-05-14 13:57 | Discharge Summary ---
Providers - Providers Date of Admission: 05/11/19 07:15 Date of discharge: 05/14/19 Attending physician: MELISSA MARLEY 05/11/19 14:45 Consult to Physician [CONS] Routine Comment: Consulting Provider: RACHID EASON Physician Instructions: Reason For Exam: new aflutter, CHF, worsening high Troponin Hospitalization Condition: Stable Hospital course: Patient is a 83-year-old Nigerian speaking woman with history of CVA with dysarthria, ESRD on HD on MWF, moderate aortic stenosis, moderate mitral regurgitation, Obesity, HTN, DM type 2, DVT not on anticoagulation, CHF with diastolic dysfunction and chronic hypoxic respiratory failure on 2 L home O2 who presents to progressive severe worsening of SOB that started today. Patient was noted by paramedics to have an O2 sat of 80% on oxygen. Patient was placed on CPAP and transported to the hospital. Patient is due for dialysis today. Family at bedside says she has not missed hemodialysis session. Patient came here on 05/02/19 and was admitted for respiratory issues but it appears patient left the hospital AGAINST MEDICAL ADVICE. There is no discharge summary. Patient is denying any chest pain or fever at this time. She is a poor historian even with help of Nigerian assistant shift supervisor. Patient refusing lab draws, grandson name, Boy, was the assistant shift supervisor. * pCXR Impression: Mild bilateral perihilar pulmonary edema * EKG Aflutter RVR 2:1 AV block, HR 105 Acute on chronic hypoxic respiratory failure, present on admission with bilateral pulmonary edema: treat with increase Ultrafiltration with HD, Consult Cardiology and Nephrology Acute on chronic diastolic heart failure with preserved EF and diastolic dysfunction, stable now: Cardiology to be consulted Hypertension, accelerated: low salt diet, and treat with antihypertensives Controlled diabetes mellitus type 2: SSI, accucheck, ada/renal diet ESRD on HD: Consult Nephrology Elevated troponin, above baseline of (0.04), type 2 [place]: consult Cardiology, serial CE, troponins, repeat EKG ruled out Aflutter with 2.1 AV block per Cardiology Leukocytosis: work up for infection, UA if able to make urine, blood cultures Dysarthria most likely chronic from old stroke DVT prophylaxis: sq heparin full code Stress test negative today, await limited view TTE and Cardiology clearance Disposition: TO HOME OR SELFCARE Time spent for discharge: 36 minutes Core Measure Documentation - Palliative Care Palliative Care/ Comfort Measures: Not Applicable - Core Measures Any of the following diagnoses?: heart failure - VTE Discharge Requirements Deep Vein Thrombosis/Pulmonary Embolism Present on Admission: No Has pt received <5 days of overlap therapy or INR<2.0: No Anticoagulant overlap therapy prescribed at discharge: No Contraindication No Overlap Therapy order at DC: Not Indicated - Heart Failure Discharge Requirements JORDANA/ARB for LVSD if EF <40%: No Reason for no JORDANA/ARB: Renal impairment Beta starla at discharge: Yes Exam - Physical Exam Narrative exam: Gen: chronically disable appearing, mild increase accessory muscle on NC O2 NAD, Awake, Alert, Orientated HEENT: NCAT, EOMI, PERRL, OP Clear Neck: supple, no adenopathy, no thyromegaly, no JVD CVS/Heart: RRR, normal S1S2, pulses present bilaterally Chest/Lungs: diminished bs bilateral and bibasilar crackles, Symmetrical chest expansion, good air entry bilaterally GI/Abdomen: soft, NTND, good bowel sounds, no guarding or rebound /Bladder: no suprapubic tenderness, no CVA or paraspinal tenderness Extermity/Skin: no c/c/e, no obvious rash MSK: FROM x 4 Neuro: CN 2-12 grossly intact, no new focal deficits Psych: calm - Constitutional Vitals: Temp Pulse Resp BP Pulse Ox 99.3 F 86 16 138/65 100 05/14/19 10:15 05/14/19 12:00 05/14/19 10:15 05/14/19 12:00 05/14/19 07:28 Plan Activity: other (no strenous activity) Diet: low salt, diabetic Special Instructions: record daily BP diary, record blood sugar diary Follow up with: BE[facility] MD MEKHI [Referring] - 3-5 Days RACHID EASON MD [Staff Physician] - 7 Days Prescriptions: hydrALAZINE [Apresoline TAB] 50 mg PO TID #90 tablet
[2019-05-14] MEDS: cefTRIAXone/NS 1 GM/50 ML 1 GM/50 ML BAG IV SCH (17:20)
[2019-05-14] MEDS: ASPIRIN 81 MG TAB CHEW PO SCH (17:23)
[2019-05-14] MEDS: carvediloL 12.5 MG TAB PO SCH (17:23)
[2019-05-14] MEDS: HEPARIN 5,000 UNIT/1 ML VIAL SUB-Q SCH (17:26)
[2019-05-14 17:27] VITALS: BP 124/60
--- NOTE | 2019-05-17 10:26 | Discharge Summary ---
Providers - Providers Date of Admission: 05/11/19 07:15 Date of discharge: 05/02/19 Attending physician: MELISSA MARLEY 05/11/19 14:45 Consult to Physician [CONS] Routine Comment: Consulting Provider: RACHID EASON Physician Instructions: Reason For Exam: new aflutter, CHF, worsening high Troponin Hospitalization Reason for admission: SOB Condition: Stable Hospital course: This is the discharge summary for 05/02/19 admission; Brief History: 83-year-old Uzbek female with h/o ESRD on HD, h/o b/L LE DVT, diastolic HF on chronic respiratory failure on home O2, DM on insulin brought in to the emergency room for concerns of difficulty with breathing. Previous past visit patient was admitted to this hospital from 04/24/2019 to 04/27/2019 for altered mental status and was diagnosed with urosepsis. In the ER, patient noted to have diffuse wheezing, respiratory distress with elevated white count/lactic acid and called for admission further evaluation. patient was admitted to [facility] floor but in the afternoon family and patient decided to leave the hospital and signed AMA paper. Risk of leaving AMA explained and they verbalized understanding Disposition: DC-07 LEFT AGAINST MED ADVICE Core Measure Documentation - Palliative Care Palliative Care/ Comfort Measures: Not Applicable - Core Measures Any of the following diagnoses?: history only Exam - Constitutional Vitals: Temp Pulse Resp BP Pulse Ox 98.0 F 92 H 18 124/60 97 05/14/19 15:16 05/14/19 17:26 05/14/19 15:16 05/14/19 17:23 05/14/19 15:16 Plan Follow up with: RACHID EASON MD [Staff Physician] - 7 Days [place] MARLO REYNA MD [Referring] - 3-5 Days Prescriptions: hydrALAZINE [Apresoline TAB] 50 mg PO TID #90 tablet
== END 2019-05-14 18:15 | disposition left against medical advice (07) | DRG 189 ==
LOC: ED 04:50 → 4A 07:15
PROVIDERS: ADMIT Internal Medicine; ATTEND Internal Medicine
PROC: 5A09357 Assistance with Respiratory Ventilation, Less than 24 Consecutive Hours, Continuous Positive Airway Pressure (ICD-10-PCS; principal; 2019-05-11)
PROC: 5A1D70Z Performance of Urinary Filtration, Intermittent, Less than 6 Hours Per Day (ICD-10-PCS; 2019-05-11)
PROC: 5A1D70Z Performance of Urinary Filtration, Intermittent, Less than 6 Hours Per Day (ICD-10-PCS; 2019-05-12)
PROC: 5A1D70Z Performance of Urinary Filtration, Intermittent, Less than 6 Hours Per Day (ICD-10-PCS; 2019-05-14)
DX: J96.21 Acute and chronic respiratory failure with hypoxia (principal); I50.33 Acute on chronic diastolic (congestive) heart failure; I21.A1 Myocardial infarction type 2; N18.6 End stage renal disease; I13.2 Hypertensive heart and chronic kidney disease with heart failure and with stage 5 chronic kidney disease, or end stage renal disease; N25.81 Secondary hyperparathyroidism of renal origin; D63.1 Anemia in chronic kidney disease; E66.9 Obesity, unspecified; E11.22 Type 2 diabetes mellitus with diabetic chronic kidney disease; E87.5 Hyperkalemia; I69.322 Dysarthria following cerebral infarction; Z99.2 Dependence on renal dialysis; Z68.30 Body mass index [BMI] 30.0-30.9, adult; Z86.718 Personal history of other venous thrombosis and embolism; Z99.81 Dependence on supplemental oxygen; Z82.49 Family history of ischemic heart disease and other diseases of the circulatory system; Z79.51 Long term (current) use of inhaled steroids; Z79.82 Long term (current) use of aspirin; Z79.84 Long term (current) use of oral hypoglycemic drugs
CPT/HCPCS: 36415; 71045; 78452; 80053; 80061; 82962; 83735; 83880; 84484; 85025; 85610; 85730; 87040; 93005; 93010; 93017; 93308; 93321; 93325; 94644; 96374; G0378; A9270-GY; A9502; J0696; J0885; J1644; J1815; J1940; J2405; J2785; J3475; J7030

== ENCOUNTER 2019-06-07 08:12 | Day surgery (SDC) | payer MEDICARE ==
[~2019-06-07 08:12] MED LIST changes: +SODIUM CHLORIDE 0.9% 1000 ML 1,000 ML IV SCH; -VANCOMYCIN/NS 1 GM/250 ML 1 GM/250 ML BAG IV ONE; +ceFAZolin/STERILE WATER 2 GM/20 ML SYRINGE IV NR
[2019-06-07] MEDS ORDERED: LIDOCAINE (1%) 10 MG/1 ML VIAL 20 ML MDV ONE (08:36)
[2019-06-07] MEDS ORDERED: PROTAMINE SULFATE 50 MG/5 ML INJ ONE (08:36)
[2019-06-07] MEDS ORDERED: HEPARIN 10,000 UNITS/10 ML VIAL ONE (08:36)
[2019-06-07] MEDS ORDERED: BACTERIOSTATIC SODIUM CHLORIDE 0.9% 30 ML VIAL INFILTRATI ONE (08:36)
[2019-06-07] MEDS ORDERED: NEOMY 3.5 MG/BACIT 400 UNITS/POLY B 5000 UNITS/GM OINT PACKET TP ONE (08:37)
[2019-06-07] MEDS ORDERED: SODIUM CHLORIDE 0.9% 500 ML 500 ML ONE (08:37)
[2019-06-07] MEDS ORDERED: fentaNYL 100 MCG/2 ML INJ IV PRN (08:38)
[2019-06-07] MEDS ORDERED: ONDANSETRON 4 MG/2 ML INJ IV PRN (08:38)
--- NOTE | 2019-06-07 08:44 | Anesthesia Consultation ---
Anesthesia Consult and Med Hx Date of service: 06/07/19 - Airway Anesthetic Teeth Evaluation: Dentures, Edentulous ROM Head & Neck: Adequate Mental/Hyoid Distance: Adequate Mallampati Class: Class III Intubation Access Assessment: Good - Pre-Operative Health Status ASA Pre-Surgery Classification: ASA4 Proposed Anesthetic Plan: General - Pulmonary Hx Smoking: No SOB: Yes (INHALER PRN. Pulmonary edema [id number]) Home Oxygen Therapy: Yes (In the past) Hx Sleep Apnea: No (MILES PRE SCREEN LOW RISK) - Cardiovascular System Hx Hypertension: Yes (CHF. Limited activity) Hx Heart Attack/AMI: Yes Hx Valvular Heart Disease: Yes (AORTIC STENOSIS/MITRAL REGURGITATION) Hx Heart Murmur: Yes - Central Nervous System CVA: Yes (SLURRED SPEECH) Hx Psychiatric Problems: No - Endocrine Hx Renal Disease: Yes Hx End Stage Renal Disease: Yes (Last HD yesterday) Hx Non-Insulin Dependent Diabetes: Yes - Hematic Hx Anemia: Yes - Other Systems Hx Alcohol Use: No Hx Substance Use: No Hx Cancer: No - Additional Comments Anesthesia Medical History Comments: Malay speaking only. Translated via caregiver
--- NOTE | 2019-06-07 08:48 | Anesthesia Day of Surgery ---
Anesthesia Day of Surgery - Day of Surgery Patient Examined: Yes Patient H&P Reviewed: Yes Patient is NPO: Yes Beta Blockers: Yes
[2019-06-07] MEDS ORDERED: carvediloL 12.5 MG TAB PO NR (09:00)
[2019-06-07] MEDS ORDERED: LIDOCAINE MPF (2%) 20 MG/1 ML VIAL 5 ML ONE (09:04)
[2019-06-07] MEDS ORDERED: fentaNYL 100 MCG/2 ML INJ ONE (09:04)
[2019-06-07] MEDS ORDERED: PROPOFOL 200 MG/20 ML VIAL IV ONE (09:06)
[2019-06-07 09:21] VITALS: BP 161/63
[2019-06-07 09:42] LABS: Bacteria,Urine 2+ /HPF (Negative); Bilirubin,Urine NEG (Negative); Blood,Urine NEG (Negative); Color,Urine Yellow (Yellow); Urobilinogen,Urine < 2.0 mg/dL (<2.0)
[2019-06-07 09:46] LABS: WBC,Urine > 182.0 /HPF (0.0-6.0)
[2019-06-07 09:48] LABS: Basophils # (Auto) 0.1 K/mm3 (0.0-0.1); Basophils % (Auto) 0.5 % (0.0-1.8); Eosinophils # (Auto) 0.5 K/mm3 (0.0-0.4); Eosinophils % (Auto) 3.4 % (0.0-4.3); Hematocrit 29.2 % (30.3-42.9); Hemoglobin 9.4 gm/dl (10.1-14.3); Lymphocytes # (Auto) 2.6 K/mm3 (1.2-5.4); Lymphocytes % (Auto) 16.4 % (13.4-35.0); Mean Corpuscular HGB Conc 32 % (30-34); Mean Corpuscular Volume 95 fl (79-97); Monocytes # (Auto) 0.8 K/mm3 (0.0-0.8); Monocytes % (Auto) 5.3 % (0.0-7.3); Platelet Count 344 K/mm3 (140-440); Red Blood Count 3.08 M/mm3 (3.65-5.03); Red Cell Distribution Width 17.3 % (13.2-15.2)
[2019-06-07 10:09] LABS: Calcium 9.1 mg/dL (8.4-10.2)
== END 2019-06-07 08:13 | disposition home or self-care (01) ==
LOC: OR 08:12
PROVIDERS: ATTEND Surgery Vascular Surgery
DX: I13.2 Hypertensive heart and chronic kidney disease with heart failure and with stage 5 chronic kidney disease, or end stage renal disease (principal); E11.22 Type 2 diabetes mellitus with diabetic chronic kidney disease; I50.33 Acute on chronic diastolic (congestive) heart failure; N18.6 End stage renal disease; I25.2 Old myocardial infarction; G93.40 Encephalopathy, unspecified; I42.9 Cardiomyopathy, unspecified; E78.00 Pure hypercholesterolemia, unspecified; I48.91 Unspecified atrial fibrillation; E11.649 Type 2 diabetes mellitus with hypoglycemia without coma; D72.829 Elevated white blood cell count, unspecified; M19.90 Unspecified osteoarthritis, unspecified site; Z99.2 Dependence on renal dialysis; Z53.8 Procedure and treatment not carried out for other reasons; Z79.899 Other long term (current) drug therapy; Z79.82 Long term (current) use of aspirin; Z79.84 Long term (current) use of oral hypoglycemic drugs; Z86.718 Personal history of other venous thrombosis and embolism; Z91.81 History of falling; Z86.2 Personal history of diseases of the blood and blood-forming organs and certain disorders involving the immune mechanism; Z86.73 Personal history of transient ischemic attack (TIA), and cerebral infarction without residual deficits
CPT/HCPCS: 36415; 80048; 81001; 82962; 85025; 87086; J7040; 87076; 87186; A6250; J0690; J1644; J2704; J2720; J3010; J7030

== ENCOUNTER 2019-06-21 07:30 | Day surgery (SDC) | payer MEDICARE ==
[~2019-06-21 07:30] MED LIST changes: -ceFAZolin/STERILE WATER 2 GM/20 ML SYRINGE IV NR; +ceFAZolin/Water 2 GM/20 ML 2 GM/20 ML SYRINGE IV NR
[2019-06-21] MEDS ORDERED: BACTERIOSTATIC SODIUM CHLORIDE 0.9% 30 ML VIAL INFILTRATI ONE (07:33)
[2019-06-21] MEDS ORDERED: GELATIN SPONGE SIZE 100 TP ONE (08:02)
[2019-06-21] MEDS ORDERED: HEPARIN 10,000 UNITS/10 ML VIAL ONE (08:03)
[2019-06-21] MEDS ORDERED: THROMBIN (RECOMBINANT) 5,000 UNIT VIAL TP ONE ×2 (08:03→09:44)
[2019-06-21] MEDS ORDERED: SODIUM CHLORIDE 0.9% 250ML 250 ML ONE (08:03)
--- NOTE | 2019-06-21 08:17 | Anesthesia Day of Surgery ---
Anesthesia Day of Surgery - Day of Surgery Patient Examined: Yes Patient H&P Reviewed: Yes Patient is NPO: Yes
--- NOTE | 2019-06-21 08:17 | Anesthesia Consultation ---
Anesthesia Consult and Med Hx Date of service: 06/21/19 - Airway Anesthetic Teeth Evaluation: Dentures ROM Head & Neck: Adequate Mental/Hyoid Distance: Adequate Mallampati Class: Class II Intubation Access Assessment: Good - Pulmonary Exam CTA: Yes - Cardiac Exam Cardiac Exam: RRR - Pre-Operative Health Status ASA Pre-Surgery Classification: ASA3 Proposed Anesthetic Plan: General (ESRD, HTN, DM for GA) - Pulmonary Hx Smoking: No SOB: Yes (INHALER PRN. Pulmonary edema [id number]) Hx Sleep Apnea: No (MILES PRE SCREEN LOW RISK) - Cardiovascular System Hx Hypertension: Yes (CHF. Limited activity) Hx Heart Attack/AMI: Yes Hx Valvular Heart Disease: Yes (AORTIC STENOSIS/MITRAL REGURGITATION) Hx Heart Murmur: Yes - Central Nervous System CVA: Yes (SLURRED SPEECH) Hx Psychiatric Problems: No - Endocrine Hx Renal Disease: Yes Hx End Stage Renal Disease: Yes (Last HD yesterday) Hx Non-Insulin Dependent Diabetes: Yes - Hematic Hx Anemia: Yes - Other Systems Hx Alcohol Use: No Hx Substance Use: No Hx Cancer: No
[2019-06-21] MEDS ORDERED: HYDROmorphone 1 MG/1 ML INJ IV PRN (08:18)
[2019-06-21] MEDS ORDERED: ONDANSETRON 4 MG/2 ML INJ IV PRN (08:18)
[2019-06-21] MEDS ORDERED: fentaNYL 100 MCG/2 ML INJ IV PRN (08:52)
[2019-06-21] MEDS ORDERED: PROPOFOL 200 MG/20 ML VIAL IV ONE (08:56)
[2019-06-21] MEDS ORDERED: LIDOCAINE PF 100 MG/5 ML (CARDIAC SYRINGE) IV ONE (09:01)
[2019-06-21] MEDS ORDERED: HEPARIN 10,000 UNITS/10 ML VIAL IR ONE (09:43)
[2019-06-21] MEDS ORDERED: SODIUM CHLORIDE 0.9% 250 ML IVPB IV ONE (09:44)
[2019-06-21] MEDS ORDERED: SODIUM CHLORIDE 0.9% IRR 1,500 ML BOTTLE IR ONE (09:44)
[2019-06-21] MEDS ORDERED: PROTAMINE SULFATE 50 MG/5 ML INJ ONE (09:52)
[2019-06-21] MEDS ORDERED: fentaNYL 100 MCG/2 ML INJ ONE (10:30)
[2019-06-21] MEDS ORDERED: PROTAMINE SULFATE 50 MG/5 ML INJ IV ONE (10:49)
[2019-06-21] MEDS ORDERED: ONDANSETRON 4 MG/2 ML INJ ONE (11:14)
[2019-06-21] MEDS ORDERED: dexAMETHasone 20 MG/5 ML VIAL ONE (11:14)
[2019-06-21] MEDS ORDERED: oxyCODONE /ACETAMINOPHEN 5-325MG TAB PO PRN (11:14)
--- NOTE | 2019-06-21 11:14 | Post Operative Note ---
Pre-op diagnosis: ESRD Post-op diagnosis: same Procedure: Right Arm AV Graft Insertion Anesthesia: GETA Estimated blood loss: other (25ml) Pathology: none Condition: stable Disposition: PACU
--- NOTE | 2019-06-21 11:17 | Short Stay Summary ---
Short Stay Documentation Date of service: 06/21/19 - History H&P: obtained from office Past Medical History: ESRD - Allergies and Medications Current Medications: Allergies No Known Allergies Allergy (Verified 06/14/19 16:16) Home Medications Medication Instructions Recorded Confirmed Last Taken Type amLODIPine 10 mg PO DAILY #30 tablet 08/24/18 06/14/19 06/20/19 Rx cloNIDine [Catapres] 0.1 mg PO TID 05/02/19 06/14/19 06/20/19 History Acetaminophen [Acetaminophen TAB] 2 tab PO Q4H PRN #15 tablet 05/14/19 06/14/19 06/05/19 Rx Epoetin Gabe 10,000 Unit [Procrit] 10,000 unit IV LEVI PRN #1 vial 05/14/19 06/21/19 06/20/19 Rx glipiZIDE [Glucotrol] 1 tab PO QDAY 06/21/19 06/21/19 06/20/19 History Active Medications Fentanyl (Sublimaze) 25 mcg IV Q15M PRN PRN Reason: Pain , Severe (7-10) Stop: 06/22/19 08:51 Cefazolin Sodium (Ancef/Sterile Water 2 Gm/20 Ml) 2 gm in 20 mls @ 80 mls/hr IV PREOP NR; Protocol Stop: 06/21/19 23:00 Sodium Chloride (Nacl 0.9% 1000 Ml) 1,000 mls @ 42 mls/hr IV DIRECT ANAHY Last Admin: 06/21/19 08:25 Dose: 42 mls/hr Documented by: Ondansetron HCl (Zofran) 4 mg IV ONCE PRN PRN Reason: Nausea And Vomiting - Physical exam General appearance: no acute distress Lungs: Normal air movement Extremities: no ischemia - Hospital course Hospital course: the patient was taken to the operating room and had a right arm av graft insertion performed. please refer to the operative note concerning details of the procedure. the patient tolerated the procedure well and was discharged home in stable condition. - Disposition Condition at discharge: Stable Disposition: DC-01 TO HOME OR SELFCARE - Discharge Diagnoses (1) ESRD (end stage renal disease) on dialysis Status: Acute Short Stay Discharge Plan Follow up with: GE JESSICA PA [Primary Care Provider] - 7 Days
--- NOTE | 2019-06-21 12:00 | Operative Report ---
STAFF SURGEON: Dr. Leif Pineda. PREOPERATIVE DIAGNOSIS: End-stage renal disease. POSTOPERATIVE DIAGNOSIS: End-stage renal disease. PROCEDURE PERFORMED: Right arm AV graft insertion. COMPLICATIONS: None. ESTIMATED BLOOD LOSS: 25 mL. ANESTHESIA: General. INDICATIONS FOR PROCEDURE: This is an 83-year-old female with end-stage renal disease, on hemodialysis via right arm IJ PermCath who was in need of a dialysis access. The patient has had no previous access performed. After review of the patient's vein mapping, the patient was thought to be best suited for AV graft insertion. The patient and the patient's family were explained all the risks, benefits, alternatives of the procedure, expressed understanding and wished to proceed. DESCRIPTION OF THE PROCEDURE: After appropriate consent was obtained, the patient was brought back to the operating room and placed on the operating table in supine position with the right arm extended. The patient was given appropriate medication for general anesthesia, had LMA placed without difficulty. The right arm was prepped and draped in a sterile fashion with ChloraPrep. Appropriate preoperative antibiotics were administered and appropriate timeout was performed indicating the correct patient, procedure, and site of procedure. We then began the operation by making a longitudinal incision near the antecubital fossa. This was carried through subcutaneous tissue with a combination of blunt dissection and electrocautery. This dissection was continued through the bicipital aponeurosis, which was allowed to expose the brachial artery, which was found to be suitable for arterial inflow and was mobilized for appropriate distance both proximally and distally. We then proceeded to create a transverse incision near the axilla and this was carried through the subcutaneous tissue with a combination of blunt dissection and electrocautery. Dissection was continued through the fascia overlying the axillary neurovascular bundle. Axillary vein was identified and it was somewhat small, but thought to be suitable for venous outflow. This was mobilized for appropriate distance both proximally and distally. Further dissection was performed to see if any of the larger vein could be identified, but there was none found. A subcutaneous tunnel was made between the two incision sites bringing through a 4-7 mm Propaten graft. The patient was given 5000 units of unfractionated heparin. After appropriate timeout elapsed, the vascular clamps were placed on the brachial artery, both proximally and distally. The graft was appropriately spatulated. A longitudinal arteriotomy was made with the 11 blade and extended with Jordan scissors. We then proceeded to perform the end-to-side anastomosis with a running 6-0 Prolene suture. Once complete flow was reestablished through the graft, we had a nice pulsatile flow. Then, the graft was then cut to an appropriate length and spatulated. Vascular clamps were then placed on the axillary vein, both proximally and distally. A longitudinal venotomy was performed with a #11 blade and extended with Jordan scissors and then proceeded to perform the end-to-side anastomosis with a running 5-0 Prolene suture. Once complete flow was reestablished through the graft, we had a nice palpable thrill. We then proceeded to obtain hemostasis along the suture line, which was obtained with hemostatic agents. Once we were satisfied with hemostasis, we then proceeded to close both wounds with a deep subcutaneous layer with interrupted 3-0 PDS and the skin was approximated with katelin. Appropriate dressing was placed. The patient tolerated the procedure well, emerged from the general anesthesia, had the LMA removed and was sent to recovery in stable condition. All sponge, instrument and needle counts were correct at completion of the operation. JOB# [id number] HENRRY/XIAO
--- NOTE | 2019-06-21 13:01 | Post Anesthesia Evaluation ---
- Post Anesthesia Evaluation Patient Participated: Yes Airway Patent: Yes Stable Respiratory Function: Yes Nausea/Vomiting: No Temp > 96.8F: Yes Pain Manageable: Yes Adequeate Hydration: Yes Anesthesia Complications: No
[2019-06-21 13:11] VITALS: BP 147/68
== END 2019-06-21 07:31 | disposition home or self-care (01) ==
LOC: OR 07:30
PROVIDERS: ATTEND Surgery Vascular Surgery
DX: I13.2 Hypertensive heart and chronic kidney disease with heart failure and with stage 5 chronic kidney disease, or end stage renal disease (principal); E11.22 Type 2 diabetes mellitus with diabetic chronic kidney disease; I50.33 Acute on chronic diastolic (congestive) heart failure; N18.6 End stage renal disease; I25.2 Old myocardial infarction; G93.40 Encephalopathy, unspecified; I50.31 Acute diastolic (congestive) heart failure; D72.829 Elevated white blood cell count, unspecified; E78.00 Pure hypercholesterolemia, unspecified; I48.91 Unspecified atrial fibrillation; M19.90 Unspecified osteoarthritis, unspecified site; Z99.2 Dependence on renal dialysis; Z91.81 History of falling; Z87.440 Personal history of urinary (tract) infections; Z79.899 Other long term (current) drug therapy; Z86.718 Personal history of other venous thrombosis and embolism; Z86.73 Personal history of transient ischemic attack (TIA), and cerebral infarction without residual deficits
CPT/HCPCS: 36830; 82803; 82962; A4649; C1768; J0690; J1100; J1644; J2001; J2405; J2704; J2720; J3010; J7030; J7050

== ENCOUNTER 2019-07-06 05:44 | Day surgery (SDC) | payer MEDICARE ==
[2019-07-06] MEDS ORDERED: ceFAZolin/Water 2 GM/20 ML 2 GM/20 ML SYRINGE IV NR (06:00)
[2019-07-06] MEDS ORDERED: SODIUM CHLORIDE 0.9% 1000 ML 1,000 ML ONE (06:50)
[2019-07-06] MEDS ORDERED: HEPARIN 10,000 UNITS/10 ML VIAL ONE (07:17)
[2019-07-06] MEDS ORDERED: PROTAMINE SULFATE 50 MG/5 ML INJ ONE (07:17)
[2019-07-06] MEDS ORDERED: THROMBIN (RECOMBINANT) 5,000 UNIT VIAL TP ONE ×2 (07:18→09:43)
[2019-07-06] MEDS ORDERED: SODIUM CHLORIDE 0.9% 250ML 250 ML ONE (07:20)
[2019-07-06] MEDS ORDERED: GELATIN SPONGE SIZE 100 TP ONE (07:21)
[2019-07-06] MEDS ORDERED: PROPOFOL 200 MG/20 ML VIAL IV ONE (07:25)
[2019-07-06] MEDS ORDERED: fentaNYL 100 MCG/2 ML INJ ONE (07:25)
[2019-07-06] MEDS ORDERED: LIDOCAINE MPF (2%) 20 MG/1 ML VIAL 5 ML ONE (07:26)
--- NOTE | 2019-07-06 07:31 | Anesthesia Consultation ---
Anesthesia Consult and Med Hx Date of service: 07/06/19 - Airway Anesthetic Teeth Evaluation: Dentures ROM Head & Neck: Adequate Mental/Hyoid Distance: Adequate Mallampati Class: Class II Intubation Access Assessment: Good - Pulmonary Exam CTA: Yes - Cardiac Exam Cardiac Exam: RRR - Pre-Operative Health Status ASA Pre-Surgery Classification: ASA4 Proposed Anesthetic Plan: General (HTN, DM, CHF - normal stress test in May 2019, ESRD on HD ) - Pulmonary SOB: Yes - Cardiovascular System Hx Hypertension: Yes Hx Heart Attack/AMI: Yes Hx Valvular Heart Disease: Yes (AORTIC STENOSIS/MITRAL REGURGITATION) Hx Heart Murmur: Yes - Central Nervous System CVA: Yes (SLURRED SPEECH) Hx Psychiatric Problems: No - Endocrine Hx End Stage Renal Disease: Yes Hx Non-Insulin Dependent Diabetes: Yes - Hematic Hx Anemia: Yes - Other Systems Hx Cancer: No
--- NOTE | 2019-07-06 07:31 | Anesthesia Day of Surgery ---
Anesthesia Day of Surgery - Day of Surgery Patient Examined: Yes Patient H&P Reviewed: Yes Patient is NPO: Yes
[2019-07-06] MEDS ORDERED: ONDANSETRON 4 MG/2 ML INJ IV PRN (07:32)
[2019-07-06] MEDS ORDERED: rifAMPin 600 MG VIAL ONE (07:35)
[2019-07-06] MEDS ORDERED: SODIUM CHLORIDE P/F VIAL 10 ML 0 ML ONE (07:35)
[2019-07-06 07:40] LABS: Hematocrit 39.2 % (30.3-42.9); Hemoglobin 12.4 gm/dl (10.1-14.3); Mean Corpuscular HGB Conc 32 % (30-34); Mean Corpuscular Volume 93 fl (79-97); Platelet Count 273 K/mm3 (140-440); Red Blood Count 4.23 M/mm3 (3.65-5.03); Red Cell Distribution Width 17.8 % (13.2-15.2)
[2019-07-06] MEDS ORDERED: SODIUM CHLORIDE 0.9% 1000 ML 1,000 ML IV SCH (07:45)
[2019-07-06] MEDS ORDERED: MIDAZOLAM 2 MG/2 ML INJ IV NR (08:00)
[2019-07-06 08:30] LABS: Total Cells Counted 100
[2019-07-06 08:38] LABS: Basophils % (Manual) 0 % (0.0-1.8)
[2019-07-06 08:39] LABS: Platelet Estimate Consistent w Auto; RBC Morphology Normal
[2019-07-06] MEDS ORDERED: HEPARIN 10,000 UNITS/10 ML VIAL IV ONE (08:44)
[2019-07-06] MEDS ORDERED: SODIUM CHLORIDE 0.9% IRR 1,000 ML BOTTLE IR ONE (08:44)
[2019-07-06] MEDS ORDERED: ONDANSETRON 4 MG/2 ML INJ ONE ×2 (10:17)
[2019-07-06] MEDS ORDERED: oxyCODONE /ACETAMINOPHEN 5-325MG TAB PO PRN (10:24)
--- NOTE | 2019-07-06 10:24 | Post Operative Note ---
Pre-op diagnosis: ESRD Post-op diagnosis: same Procedure: Left Arm AV Graft Revision by Proximalization of the Arterial Anastomosis Anesthesia: GETA Surgeon: JENNIFER YAP Estimated blood loss: other (25ml) Pathology: none Condition: stable Disposition: PACU
--- NOTE | 2019-07-06 10:27 | Short Stay Summary ---
Short Stay Documentation Date of service: 07/06/19 - History H&P: obtained from office Past Medical History: dialysis, ESRD - Allergies and Medications Current Medications: Allergies No Known Allergies Allergy (Verified 07/05/19 12:55) Home Medications Medication Instructions Recorded Confirmed Last Taken Type amLODIPine 10 mg PO DAILY #30 tablet 08/24/18 07/05/19 06/20/19 Rx cloNIDine [Catapres] 0.1 mg PO TID 05/02/19 07/06/19 07/05/19 08:00 History Acetaminophen [Acetaminophen TAB] 2 tab PO Q4H PRN #15 tablet 05/14/19 07/05/19 06/05/19 Rx Epoetin Gabe 10,000 Unit [Procrit] 10,000 unit IV LEVI PRN #1 vial 05/14/19 07/05/19 06/20/19 Rx glipiZIDE [Glucotrol] 1 tab PO QDAY 06/21/19 07/05/19 06/20/19 History oxyCODONE /ACETAMINOPHEN [Percocet 2 tab PO Q4H PRN #20 tablet 06/21/19 07/06/19 07/04/19 08:00 Rx 5/325 mg] Active Medications Hydromorphone HCl (Dilaudid) 0.25 mg IV Q10MIN PRN PRN Reason: Pain, Moderate (4-6) Stop: 07/06/19 22:00 Cefazolin Sodium (Ancef/Sterile Water 2 Gm/20 Ml) 2 gm in 20 mls @ 80 mls/hr IV PREOP NR; Protocol Stop: 07/06/19 23:59 Sodium Chloride (Nacl 0.9% 1000 Ml) 1,000 mls @ 42 mls/hr IV DIRECT ANAHY Last Admin: 07/06/19 07:05 Dose: 42 mls/hr Documented by: Midazolam HCl (Versed) 2 mg IV PREOP NR Stop: 07/06/19 23:59 Ondansetron HCl (Zofran) 4 mg IV ONCE PRN PRN Reason: Nausea And Vomiting Stop: 07/06/19 16:00 - Physical exam General appearance: no acute distress Lungs: Normal air movement Heart: Regular rate Extremities: no ischemia - Hospital course Hospital course: the patient was taken to the operating room and had a right arm av graft revision performed. please refer to the operative noted concerning details of the procedure. the patient tolerated the procedure well and was discharged home in stable condition. - Disposition Condition at discharge: Stable Disposition: DC-01 TO HOME OR SELFCARE - Discharge Diagnoses (1) ESRD (end stage renal disease) on dialysis Status: Acute Short Stay Discharge Plan Follow up with: GE JESSICA PA [Primary Care Provider] - 7 Days
[2019-07-06] MEDS: HYDROmorphone 1 MG/1 ML INJ IV PRN ×2 (10:50→11:00)
[2019-07-06 11:38] VITALS: BP 160/68
--- NOTE | 2019-07-06 12:02 | Operative Report ---
STAFF SURGEON: Leif Pineda MD PREOPERATIVE DIAGNOSIS: End-stage renal disease. POSTOPERATIVE DIAGNOSIS: End-stage renal disease. PROCEDURE PERFORMED: Right arm AV graft revision by proxmalization of the arterial anastomosis. COMPLICATIONS: None. ESTIMATED BLOOD LOSS: 25 mL. ANESTHESIA: General. INDICATIONS FOR PROCEDURE: This is an 84-year-old female who had a right arm AV graft insertion performed who tolerated the procedure well; however, recently over the past 2-3 days, the patient has been developing worsening right hand pain, numbness and weakness concerning for a steal syndrome, which was confirmed by ultrasound and graft compression. Therefore, it was felt that the patient would benefit from revision of her access in an attempt to improve perfusion to the right arm. The patient was explained the risks, benefits and alternatives of procedure, expressed understanding and wished to proceed. DESCRIPTION OF PROCEDURE: After appropriate consent was obtained, the patient was brought back to the operating room and placed on the operating table in supine position with the right arm extended. The patient was given appropriate medication for general anesthesia and LMA placed without difficulty. The right arm was prepped and draped in sterile fashion with ChloraPrep. Appropriate preoperative antibiotics were administered, and appropriate time-out performed indicating correct patient, procedure, and site of procedure. I then began the operation by making a longitudinal incision in the proximal upper arm. This was carried through subcutaneous tissue with a combination of blunt dissection and electrocautery. Dissection was continued through the fascia overlying the brachial neurovascular bundle. The brachial artery was identified in this area and was found to be suitable for arterial inflow. We then proceeded to make a transverse incision overlying the graft near the arterial anastomosis. This was carried through the subcutaneous tissue with a combination of blunt dissection and electrocautery. The graft was identified, mobilized within the incision for appropriate amount of distance, then proceeded to make a counter incision just posterior to the graft near the antecubital fossa. This was carried through the subcutaneous tissue with a combination of blunt dissection and electrocautery. I then proceeded to bring on the field a 4-7 mm Propaten graft and proceeded to tunnel between all three incision sites. The graft was appropriately spatulated. The patient was given unfractionated heparin intravenously. After appropriate timeout elapsed, then proceeded to place vascular clamps on the brachial artery, both proximally and distally. Longitudinal arteriotomy was made with a #11 blade, which was extended with Jordan scissors. We then proceeded to perform the end-to-side anastomosis with a running 6-0 Prolene suture. Once complete, flow was reestablished through the graft, we had a nice pulsatile flow. Graft was then cut to an appropriate length and spatulated. Vascular consult was placed on the original graft in the distal aspect of the incision. The graft was transected and suture ligated with a 2-0 silk suture as well as 0 silk suture. Once that was complete, the remaining portion of the graft was then appropriately spatulated and an end-to-end anastomosis was performed with a running 6-0 Prolene suture. Once complete, flow was reestablished through the graft with a nice palpable thrill. We then looked to obtain hemostasis along the suture lines, which were obtained with hemostatic agents. Once we were satisfied with hemostasis, we then proceeded to close all the wounds with interrupted deep subcutaneous layer with a 3-0 PDS and the skin was approximated with katelin. The patient tolerated procedure well, emerged from the general anesthesia, the LMA removed and sent to recovery in stable condition. All the sponges, instrument and needle counts were correct at the completion of the operation. JOB# [id number] HENRRY/XIAO STONE
--- NOTE | 2019-07-06 15:25 | Post Anesthesia Evaluation ---
- Post Anesthesia Evaluation Patient Participated: Yes Airway Patent: Yes Stable Respiratory Function: Yes Nausea/Vomiting: No Temp > 96.8F: Yes Pain Manageable: Yes Adequeate Hydration: Yes Anesthesia Complications: No Block Receding Appropriately: Not Applicable Patient on Ventilator: No
== END 2019-07-06 05:45 | disposition home or self-care (01) ==
LOC: OR 05:44
PROVIDERS: ATTEND Surgery Vascular Surgery
DX: I13.2 Hypertensive heart and chronic kidney disease with heart failure and with stage 5 chronic kidney disease, or end stage renal disease (principal); N18.6 End stage renal disease; E11.22 Type 2 diabetes mellitus with diabetic chronic kidney disease; I50.33 Acute on chronic diastolic (congestive) heart failure; I25.2 Old myocardial infarction; I42.9 Cardiomyopathy, unspecified; G93.41 Metabolic encephalopathy; D72.829 Elevated white blood cell count, unspecified; I48.91 Unspecified atrial fibrillation; M19.90 Unspecified osteoarthritis, unspecified site; D63.8 Anemia in other chronic diseases classified elsewhere; J96.10 Chronic respiratory failure, unspecified whether with hypoxia or hypercapnia; Z87.440 Personal history of urinary (tract) infections; Z91.81 History of falling; Z98.890 Other specified postprocedural states; Z79.899 Other long term (current) drug therapy; Z86.73 Personal history of transient ischemic attack (TIA), and cerebral infarction without residual deficits; Z86.718 Personal history of other venous thrombosis and embolism
CPT/HCPCS: 36415; 36832; 80048; 82962; 85007; 85025; A4649; C1768; J0690; J1170; J1644; J2405; J2704; J2720; J3010; J7030; J7050; J3490

== ENCOUNTER 2019-12-19 14:09 | Emergency (ER) | payer MEDICARE ==
--- NOTE | 2019-12-19 15:00 | Emergency Department Report ---
ED Syncope HPI - General Chief Complaint: Medical Clearance Stated Complaint: GENERAL WEAKNESS Time Seen by Provider: 12/19/19 14:30 - History of Present Illness Initial Comments: Patient is 84 years old female with history of end-stage renal disease on hemodialysis, hypertension, diabetes and congestive heart failure. Patient brought to the emergency room from dialysis center for evaluation of 1 episode of syncope prior to starting her dialysis session. Patient is Japanese and translation was through the translation line. Patient is currently denying any dizziness. She is asking when she can go home. Patient denied any chest pain, shortness of breath, nausea or vomiting. Patient also denied any weakness. Patient is moving all her extremities with no difficulties. Patient also denied any fever or chills, cough runny nose or congestion recently. Timing/Prior Episodes: no prior history, single episode today Precipitating Factors: Positive: none Context: standing Loss of Consciousness: dazed Current Symptoms: back to normal - Related Data Allergies/Adverse Reactions: Allergies No Known Allergies Allergy (Verified 07/05/19 12:55) Home Medications: Ambulatory Orders amLODIPine 10 mg PO DAILY #30 tablet 08/24/18 cloNIDine [Catapres] 0.1 mg PO TID 05/02/19 Acetaminophen [Acetaminophen TAB] 2 tab PO Q4H PRN #15 tablet 05/14/19 Epoetin Gabe 10,000 Unit [Procrit] 10,000 unit IV LEVI PRN #1 vial 05/14/19 glipiZIDE [Glucotrol] 1 tab PO QDAY 06/21/19 oxyCODONE /ACETAMINOPHEN [Percocet 5/325 mg] 1 tab PO Q6HR PRN 7 Days #24 tablet 07/06/19 ED Review of Systems ROS: Stated complaint: GENERAL WEAKNESS Other details as noted in HPI Comment: All other systems reviewed and negative Constitutional: denies: chills, fever Respiratory: denies: cough, shortness of breath, SOB with exertion, wheezing Cardiovascular: denies: chest pain, palpitations Gastrointestinal: denies: abdominal pain, nausea, vomiting, diarrhea, constipation, hematemesis, melena, hematochezia Musculoskeletal: denies: back pain Neurological: denies: headache, weakness, numbness, paresthesias, confusion, abnormal gait ED Past Medical Hx - Past Medical History Hx Hypertension: Yes Hx Heart Attack/AMI: Yes Hx Congestive Heart Failure: Yes (CHRONIC) Hx Diabetes: Yes Hx Deep Vein Thrombosis: Yes Hx Arthritis: Yes Hx Headaches / Migraines: Yes (CHRONIC) Additional medical history: Heart failure 08/2018, Pulmonary edema 08/2018 - Social History Smoking Status: Never Smoker - Medications Home Medications: Home Medications Medication Instructions Recorded Confirmed Last Taken Type amLODIPine 10 mg PO DAILY #30 tablet 08/24/18 07/05/19 06/20/19 Rx cloNIDine [Catapres] 0.1 mg PO TID 05/02/19 07/06/19 07/05/19 08:00 History Acetaminophen [Acetaminophen TAB] 2 tab PO Q4H PRN #15 tablet 05/14/19 07/05/19 06/05/19 Rx Epoetin Gabe 10,000 Unit [Procrit] 10,000 unit IV LEVI PRN #1 vial 05/14/19 07/05/19 06/20/19 Rx glipiZIDE [Glucotrol] 1 tab PO QDAY 06/21/19 07/05/19 06/20/19 History oxyCODONE /ACETAMINOPHEN [Percocet 1 tab PO Q6HR PRN 7 Days #24 tablet 07/06/19 Unknown Rx 5/325 mg] ED Physical Exam - General Limitations: Language Barrier General appearance: alert, in no apparent distress - Head Head exam: Present: atraumatic, normocephalic, normal inspection - Eye Eye exam: Present: normal appearance, PERRL - ENT ENT exam: Present: normal exam, normal orophraynx, mucous membranes moist - Neck Neck exam: Present: normal inspection, full ROM. Absent: tenderness, meningismus, lymphadenopathy, thyromegaly - Respiratory Respiratory exam: Present: normal lung sounds bilaterally - Cardiovascular Cardiovascular Exam: Present: systolic murmur (Grade 4/6) - GI/Abdominal GI/Abdominal exam: Present: soft, normal bowel sounds. Absent: distended, tenderness, guarding, rebound, rigid, organomegaly, mass, bruit, pulsatile mass, hernia - Extremities Exam Extremities exam: Present: normal inspection, full ROM, normal capillary refill. Absent: pedal edema, calf tenderness - Back Exam Back exam: Present: normal inspection, full ROM. Absent: CVA tenderness (R), CVA tenderness (L) - Neurological Exam Neurological exam: Present: alert, oriented X3, CN II-XII intact - Psychiatric Psychiatric exam: Present: normal mood - Skin Skin exam: Present: warm, intact, normal color ED Course Vital Signs 12/19/19 12/19/19 12/19/19 14:28 14:47 14:49 Temperature 98.4 F Pulse Rate 76 77 Respiratory 18 16 16 Rate Blood Pressure 143/65 Blood Pressure [Left] O2 Sat by Pulse 100 100 Oximetry 12/19/19 16:47 Temperature Pulse Rate 80 Respiratory 20 Rate Blood Pressure Blood Pressure 189/67 [Left] O2 Sat by Pulse 99 Oximetry ED Medical Decision Making - Lab Data Result diagrams: 12/19/19 15:14 12/19/19 15:14 - EKG Data -: EKG Interpreted by Al EKG shows normal: sinus rhythm Rate: normal - EKG Data Interpretation: no acute changes - Radiology Data Radiology results: report reviewed - Medical Decision Making Patient is 84 years old female with history of end-stage renal disease on hemodialysis, hypertension, diabetes and congestive heart failure. Patient brought to the emergency room from dialysis center for evaluation of 1 episode of syncope prior to starting her dialysis session. Patient is Japanese and translation was through the translation line. Patient is currently denying any dizziness. She is asking when she can go home. Patient denied any chest pain, shortness of breath, nausea or vomiting. Patient also denied any weakness. Patient is moving all her extremities with no difficulties. Patient also denied any fever or chills, cough runny nose or congestion recently. EKG shows sinus rhythm with no ST elevation or depression. CT brain is negative for acute finding. Labs reviewed and is unremarkable except for her chronic elevation of creatinine and BUN. Potassium is 3.4. Patient did not experience any syncopal episode in the emergency room. Patient remained stable with stable vital signs. Patient discharged home and advised to follow-up with her dialysis center in the morning to continue her session. Patient also advised to return to the ER if she develop any new symptoms. Critical care attestation.: If time is entered above; I have spent that time in minutes in the direct care of this critically ill patient, excluding procedure time. ED Disposition Clinical Impression: Syncope Disposition: DC-01 TO HOME OR SELFCARE Is pt being admited?: No Condition: Stable Instructions: Syncope (ED) Referrals: PRIMARY CARE, [Primary Care Provider] - 3-5 Days
[2019-12-19 16:05] LABS: Basophils % (Auto) 0.5 % (0.0-1.8); Eosinophils # (Auto) 0.3 K/mm3 (0.0-0.4); Eosinophils % (Auto) 3.1 % (0.0-4.3); Hematocrit 35.7 % (30.3-42.9); Hemoglobin 11.7 gm/dl (10.1-14.3); Lymphocytes # (Auto) 1.2 K/mm3 (1.2-5.4); Mean Corpuscular HGB Conc 33 % (30-34); Mean Corpuscular Volume 89 fl (79-97); Monocytes # (Auto) 0.4 K/mm3 (0.0-0.8); Monocytes % (Auto) 4.4 % (0.0-7.3); Platelet Count 283 K/mm3 (140-440); Red Cell Distribution Width 16.7 % (13.2-15.2)
[2019-12-19 16:25] LABS: Calcium 8.9 mg/dL (8.4-10.2)
[2019-12-19 16:28] LABS: Albumin 3.3 g/dL (3.9-5)
[2019-12-19 16:37] LABS: Alanine Aminotransferase < 5 units/L (7-56); Bilirubin,Direct < 0.2 mg/dL (0-0.2)
[2019-12-19 16:47] VITALS: BP 189/67
--- NOTE | 2019-12-19 16:50 | Cat Scan Report ---
CT head/brain wo con INDICATION / CLINICAL INFORMATION: 84 years Female; Syncope. TECHNIQUE: Routine CT head without contrast. All CT scans at this location are performed using CT dos e reduction for ALARA by means of automated exposure control. COMPARISON: The study is compared to the previous CT of 03/19/2019. FINDINGS: BRAIN / INTRACRANIAL CONTENTS: There is extensive cerebral white matter disease which most likely inv olves the periventricular and gangliocapsular regions at. The findings appear to correlate with the p revious CT. There is mild to moderate cerebral atrophy with continued prominence of the CSF signal along the fron olga convexities. The mild prominence of the ventricular system is unchanged in size configuration. Th ere is again note of developmental cavum septum vergae. There is no clear CT evidence of acute intracranial hemorrhage or significant mass effect. There are persistent small foci of calcification along the right parietal cortical regions which are unchanged. . ORBITS: No significant abnormality of visualized orbits. SINUSES / MASTOIDS: There is continued opacification involving the left ethmoid air cells. CRANIOCERVICAL JUNCTION: No significant abnormality. ADDITIONAL FINDINGS: There is a persistent 1.1 cm calcified lesion along the anterior, inferior left frontal lobe, best seen on the reconstructed images at. This finding would appear most consistent wit h a calcified meningioma and is unchanged. There is mild degree of mass effect without significant va sogenic edema involving adjacent frontal The relative prominence of the left MCA trifurcation again likely reflects a confluence of vessels an d is essentially unchanged. IMPRESSION: 1. There is continued extensive microvascular angiopathy and mild to moderate cerebral atrophy withou t CT evidence of acute intracranial hemorrhage. 2. There is also persistent 1.1 cm calcified lesion along the anterior, inferior left frontal lobe in dicative of a stable meningioma as described. Signer Name: Patrick Charles MD Signed: 12/19/2019 4:45 PM Workstation Name: [id number]
== END 2019-12-19 18:50 | disposition home or self-care (01) ==
LOC: ED 14:09
DX: R55 Syncope and collapse (principal); I11.0 Hypertensive heart disease with heart failure; I50.9 Heart failure, unspecified; I25.2 Old myocardial infarction; E11.9 Type 2 diabetes mellitus without complications; M19.90 Unspecified osteoarthritis, unspecified site; G43.909 Migraine, unspecified, not intractable, without status migrainosus; Z79.899 Other long term (current) drug therapy
CPT/HCPCS: 36415; 70450; 80048; 80076; 84484; 85025; 93005

== ENCOUNTER 2021-08-19 04:36 | Inpatient (IN) | payer MEDICARE ==
--- NOTE | 2021-08-19 05:05 | Emergency Department Report ---
HPI - HPI HPI: Room 4 The patient is an 86-year-old female present with a chief complaint of altered mental status. Per EMS patient was found unresponsive at home by family. EMS was called and arrived on scene to find the patient hypoglycemic at 20. Patient was administered D10 with improvement of her glucose to the 200s however the patient remained unresponsive. Upon arrival to the ED the patient was unresponsive to sternal rub and had an absent gag reflex, subsequently the decision to intubate the patient using RSI was made <BRITTANY WOODS - Last Filed: 08/19/21 05:41> <JAYMIE MORAN - Last Filed: 08/19/21 14:50> - General Time Seen by Provider: 08/19/21 04:49 ED Past Medical Hx - Past Medical History Hx Hypertension: Yes Hx Heart Attack/AMI: Yes Hx Congestive Heart Failure: Yes (CHRONIC) Hx Diabetes: Yes Hx Deep Vein Thrombosis: Yes Hx Renal Disease: Yes (ESRD) Hx Arthritis: Yes Hx Headaches / Migraines: Yes (CHRONIC) Additional medical history: Heart failure 08/2018, Pulmonary edema 08/2018 - Surgical History Additional Surgical History: Left upper extremity fistula, right upper extremity fistula - Family History Family history: no significant - Social History Smoking Status: Unknown if ever smoked Substance Use Type: None <BRITTANY WOODS - Last Filed: 08/19/21 05:41> <JAYMIE MORAN - Last Filed: 08/19/21 14:50> - Medications Home Medications: Home Medications Medication Instructions Recorded Confirmed Last Taken Type amLODIPine 10 mg PO DAILY #30 tablet 01/31/20 08/12/21 Unknown Rx Glimepiride 1 mg PO QDAY #30 tablet 04/21/20 08/12/21 Unknown Rx Diclofenac 1% [Diclofenac 1% 2 - 4 gm TP QID 08/12/21 08/12/21 Unknown History topical gel] Gabapentin 300 mg PO BID 08/12/21 08/12/21 Unknown History Mirtazapine [Remeron 15mg TAB] 15 mg PO QHS 08/12/21 08/12/21 Unknown History cloNIDine [Catapres] 0.1 mg PO BID 08/12/21 08/12/21 Unknown History Ascorbic Acid/Ascorbate Sodium 500 mg PO BID #30 08/17/21 Unknown Rx [Vitamin C 500 mg Tablet Chew] Cholecalciferol Vit D3 [Vitamin D3 1,000 unit PO QDAY #15 tablet 08/17/21 Unknown Rx 1,000 UNIT TAB] Dexamethasone 6 mg PO QID #5 tab 08/17/21 Unknown Rx Famotidine [Pepcid] 20 mg PO QAM #30 tablet 08/17/21 Unknown Rx Zinc Sulfate [Zinc] 220 mg PO BID #30 08/17/21 Unknown Rx ED Review of Systems ROS: Stated complaint: LOW BLOOD SUGAR Other details as noted in HPI Comment: Unobtainable due to pts medical conditions <BRITTANY WOODS - Last Filed: 08/19/21 05:41> ROS: Stated complaint: LOW BLOOD SUGAR Other details as noted in HPI <JAYMIE MORAN - Last Filed: 08/19/21 14:50> Physical Exam - Physical Exam Physical Exam: GENERAL: The patient is well-developed well-nourished []. [] HEENT: Normocephalic. Atraumatic. Right pupil 3 to 2 mm, left pupil 2 mm and minimally reactive. Patient has moist mucous membranes. NECK: Supple. Trachea midline CHEST/LUNGS: Clear to auscultation. There is no respiratory distress noted. HEART/CARDIOVASCULAR: Regular. There is no tachycardia. There is no gallop rub or murmur. ABDOMEN: Abdomen is soft, nontender. Patient has normal bowel sounds. There is no abdominal distention. SKIN: There is no rash. There is no edema. There is no diaphoresis. NEURO: The patient is grossly obtunded and does not respond to sternal rub. Absent gag reflex. GCS 3 MUSCULOSKELETAL: There is no evidence of acute injury. <BRITTANY WOODS - Last Filed: 08/19/21 05:41> - Physical Exam Vital Signs: Vital Signs 08/19/21 08/19/21 08/19/21 04:57 05:00 05:16 Pulse Rate 95 H 94 H 104 H Respiratory 17 18 17 Rate Blood Pressure 161/59 O2 Sat by Pulse 100 100 100 Oximetry 08/19/21 05:42 Pulse Rate 93 H Respiratory Rate Blood Pressure 143/78 O2 Sat by Pulse 100 Oximetry <DEANJAYMIE - Last Filed: 08/19/21 14:50> ED Course Vital Signs 08/19/21 08/19/21 08/19/21 04:57 05:00 05:16 Pulse Rate 95 H 94 H 104 H Respiratory 17 18 17 Rate Blood Pressure 161/59 O2 Sat by Pulse 100 100 100 Oximetry 08/19/21 05:42 Pulse Rate 93 H Respiratory Rate Blood Pressure 143/78 O2 Sat by Pulse 100 Oximetry - Reevaluation(s) Reevaluation #1: 08/19/21 06:58 Laboratory studies demonstrate leukocytosis, either infectious or stress reaction or both. She is also found to have known chronic renal insufficiency, elevated troponin which is likely a type II troponin leak, hyperglycemia, hypomagnesemia, hypoalbuminemia/hypocalcemia. She may have a component of malnutrition. The patient was recently diagnosed with COVID-19 at this hospital. Her chest x- ray corroborates this. Noncontrast CT scan of the brain is negative for acute or emergent findings. Nursing team reports that patient is becoming more responsive, and have requested a sedation package for ventilatory care. Contacted critical care physician on-call, Dr. Roderick Lemus Discussed the patient's history, physical, laboratory studies imaging studies and clinical impression. She will follow in consultation. We will maintain this patient on isolation. Given recent diagnosis of COVID, chest x-ray findings, I will defer to the inpatient team to order additional Covid labs, should they so desire The hospital physician is paged to arrange admission. 08/19/21 07:00 Elevated lactic acid is reviewed and appreciated. We appreciate that this patient meets systemic inflammatory response syndrome. However, given that she has an elevated proBNP, x-ray findings that suggest COVID/pulmonary edema/both, and propensity for Covid patients to develop acute respiratory distress syndrom e, in conjunction with her current hemodynamic stability, we will withhold 30 cc/kg bolus of IV fluid, given that this may be deleterious/detrimental to this patient's clinical course. We will defer to the inpatient team to further manage this patient's fluid requirements. Reevaluation #2: 08/19/21 07:44 Dr Kaylin Hernandez to admit to ICU <JAYMIE MORAN - Last Filed: 08/19/21 14:50> - EJ/Peripheral Line Neck R Time Out Performed: Yes Indications: multiple IV sites needed Skin Cleansed in Sterile Fashion: Yes Size: 18 Dressing Placed: Tegaderm Patient Tolerated Procedure: well <JAYMIE MORAN - Last Filed: 08/19/21 14:50> ED Medical Decision Making - EKG Data -: EKG Interpreted by Me EKG shows normal: sinus rhythm Rate: tachycardia (106 bpm) - EKG Data When compared to previous EKG there are: previous EKG unavailable Interpretation: other (No ischemic changes seen) - Radiology Data Radiology results: image reviewed (Chest x-ray) interpreted by me: Chest [id number] bilateral infiltrates, right lower lobe consolidation. ET tube in adequate position - Differential Diagnosis AMS, hypoglycemia, ICH, hepatic encephalopathy, metabolic encephalopathy <BRITTANY WOODS - Last Filed: 08/19/21 05:41> - Lab Data Result diagrams: 08/19/21 04:53 08/19/21 04:53 Vital Signs 08/19/21 08/19/21 08/19/21 04:57 05:00 05:16 Pulse Rate 95 H 94 H 104 H Respiratory 17 18 17 Rate Blood Pressure 161/59 O2 Sat by Pulse 100 100 100 Oximetry 08/19/21 05:42 Pulse Rate 93 H Respiratory Rate Blood Pressure 143/78 O2 Sat by Pulse 100 Oximetry Lab Results 08/19/21 08/19/21 08/19/21 Range/Units 04:53 04:53 04:53 WBC 13.0 H (4.5-11.0) K/mm3 RBC 3.03 L (3.65-5.03) M/mm3 Hgb 9.1 L (10.1-14.3) gm/dl Hct 28.8 L (30.3-42.9) % MCV 95 (79-97) fl MCH 30 (28-32) pg MCHC 32 (30-34) % RDW 20.5 H (13.2-15.2) % Plt Count 346 (140-440) K/mm3 Seg Neutrophils % [employer] Re[employer] Coordinator PT 15.6 H (12.2-14.9) Sec. INR 1.12 (0.87-1.13) APTT 30.3 (24.2-36.6) Sec. Sodium 132 L D (137-145) mmol/L Potassium 4.5 D (3.6-5.0) mmol/L Chloride 96.8 L (98-107) mmol/L Carbon Dioxide 25 (22-30) mmol/L Anion Gap 15 mmol/L BUN 17 (7-17) mg/dL Creatinine 3.6 H (0.6-1.2) mg/dL Estimated GFR 12 ml/min BUN/Creatinine Ratio 5 % Glucose 599 H* (65-100) mg/dL Calcium 6.6 L D (8.4-10.2) mg/dL Magnesium 1.50 L (1.7-2.3) mg/dL Total Bilirubin 0.20 (0.1-1.2) mg/dL AST 17 (5-40) units/L ALT 6 L (7-56) units/L Alkaline Phosphatase 75 (35-129) units/L Ammonia (25-60) umol/L Total Creatine Kinase 105 (30-135) units/L CK-MB (CK-2) 1.1 (0.0-4.0) ng/mL CK-MB (CK-2) Rel Index 1.0 (0-4) Troponin T 0.042 H (0.00-0.029) ng/mL Total Protein 5.4 L (6.3-8.2) g/dL Albumin 2.4 L (3.9-5) g/dL Albumin/Globulin Ratio 0.8 % 08/19/21 Range/Units 04:53 WBC (4.5-11.0) K/mm3 RBC (3.65-5.03) M/mm3 Hgb (10.1-14.3) gm/dl Hct (30.3-42.9) % MCV (79-97) fl MCH (28-32) pg MCHC (30-34) % RDW (13.2-15.2) % Plt Count (140-440) K/mm3 Seg Neutrophils % PT (12.2-14.9) Sec. INR (0.87-1.13) APTT (24.2-36.6) Sec. Sodium (137-145) mmol/L Potassium (3.6-5.0) mmol/L Chloride (98-107) mmol/L Carbon Dioxide (22-30) mmol/L Anion Gap mmol/L BUN (7-17) mg/dL Creatinine (0.6-1.2) mg/dL Estimated GFR ml/min BUN/Creatinine Ratio % Glucose (65-100) mg/dL Calcium (8.4-10.2) mg/dL Magnesium (1.7-2.3) mg/dL Total Bilirubin (0.1-1.2) mg/dL AST (5-40) units/L ALT (7-56) units/L Alkaline Phosphatase (35-129) units/L Ammonia 10.0 L (25-60) umol/L Total Creatine Kinase (30-135) units/L CK-MB (CK-2) (0.0-4.0) ng/mL CK-MB (CK-2) Rel Index (0-4) Troponin T (0.00-0.029) ng/mL Total Protein (6.3-8.2) g/dL Albumin (3.9-5) g/dL Albumin/Globulin Ratio % - Radiology Data Radiology results: pending, report reviewed, image reviewed CHEST 1 VIEW INDICATION / CLINICAL INFORMATION: Unresponsive, status post intubation. COMPARISON: Chest x-ray 08/11/2021 FINDINGS: SUPPORT DEVICES: Endotracheal tube terminates just above the andrew. HEART / MEDIASTINUM: Heart size upper limits of normal. LUNGS / PLEURA: Airspace opacities right upper and right lower lung demonstrate little change. Minimal patchy opacities left midlung. The left hemidiaphragm is less distinct. No pneumothorax. ADDITIONAL FINDINGS: No significant additional findings. IMPRESSION: 1. Interval placement of endotracheal tube tip just above andrew. 2. Bilateral lung opacities remain more prevalent throughout the right lung and overall suggest minimal change from comparison. Signer Name: Harinder Benson II, MD Signed: 08/19/2021 4:22 AM Workstation Name: [id number] HEAD WITHOUT CONTRAST INDICATION / CLINICAL INFORMATION: Unresponsive. TECHNIQUE: CT of the head was performed without administration of intravenous contrast. All CT scans at this location are performed using CT dose reduction for ALARA by means of automated exposure control. COMPARISON: CT head 08/11/2021 FINDINGS: CEREBRAL PARENCHYMA: No significant abnormality. Small stable asymmetric focus of hypoattenuation underlies the right insular cortex. No acute territorial infarct. Generalized cortical and central atrophy. Periventricular regions of white matter hypoattenuation compatible with microvascular ischemia. HEMORRHAGE: None. EXTRA-AXIAL SPACES: Normal in size and morphology for the patient's age. VENTRICULAR SYSTEM: Normal in size and morphology for the patient's age. MIDLINE SHIFT / HERNIATION: None. CEREBELLUM / BRAINSTEM: Small lacunar infarction left cerebral hemisphere. ORBITS: Normal as visualized. SOFT TISSUES: No significant abnormality. SKULL: No significant abnormality. PARANASAL SINUSES / MASTOID AIR CELLS: Normal as visualized. ADDITIONAL FINDINGS: None. IMPRESSION: 1. Asymmetric stable focus of diminished attenuation underlying the right insular cortex compatible with remote infarction. 2. Remote lacunar infarction left cerebellar hemisphere. 3. Generalized atrophy and features of microvascular ischemia. Signer Name: Harinder Benson II, MD Signed: 08/19/2021 5:39 AM Workstation Name: [id number] <JAYMIE MORAN - Last Filed: 08/19/21 14:50> Critical care attestation.: If time is entered above; I have spent that time in minutes in the direct care of this critically ill patient, excluding procedure time. <BRITTANY WOODS - Last Filed: 08/19/21 05:41> Critical Care Time: Yes Critical care time in (mins) excluding proc time.: 45 Critical care attestation.: If time is entered above; I have spent that time in minutes in the direct care of this critically ill patient, excluding procedure time. <JAYMIE MORAN - Last Filed: 08/19/21 14:50> ED Disposition <BRITTANY WOODS - Last Filed: 08/19/21 05:41> Is pt being admited?: Yes Does the pt Need Aspirin: No <JAYMIE MORAN - Last Filed: 08/19/21 14:50> Clinical Impression: Acute encephalopathy, COVID-19, Renal insufficiency, Hyperglycemia, Hypomagnesemia, Malnutrition Disposition: ADMITTED INPATIENT Condition: Critical
--- NOTE | 2021-08-19 05:27 | XRay Report ---
CHEST 1 VIEW INDICATION / CLINICAL INFORMATION: Unresponsive, status post intubation. COMPARISON: Chest x-ray 08/11/2021 FINDINGS: SUPPORT DEVICES: Endotracheal tube terminates just above the andrew. HEART / MEDIASTINUM: Heart size upper limits of normal. LUNGS / PLEURA: Airspace opacities right upper and right lower lung demonstrate little change. Minima l patchy opacities left midlung. The left hemidiaphragm is less distinct. No pneumothorax. ADDITIONAL FINDINGS: No significant additional findings. IMPRESSION: 1. Interval placement of endotracheal tube tip just above andrew. 2. Bilateral lung opacities remain more prevalent throughout the right lung and overall suggest minim al change from comparison. Signer Name: Harinder Benson II, MD Signed: 08/19/2021 5:22 AM Workstation Name: [id number]
[2021-08-19 05:39] LABS: Hematocrit 28.8 % (30.3-42.9); Hemoglobin 9.1 gm/dl (10.1-14.3); Mean Corpuscular HGB Conc 32 % (30-34); Mean Corpuscular Volume 95 fl (79-97); Platelet Count 346 K/mm3 (140-440); Red Blood Count 3.03 M/mm3 (3.65-5.03)
[2021-08-19] MEDS ORDERED: AZITHROMYCIN/NS 500 MG/250 ML 500 MG/250 ML BAG IV ONE (05:40)
[2021-08-19] MEDS ORDERED: cefTRIAXone/NS 1 GM/50 ML 1 GM/50 ML BAG IV ONE (05:40)
[2021-08-19 05:41] LABS: Creatine Kinase MB 1.1 ng/mL (0.0-4.0)
[2021-08-19 05:42] LABS: Albumin 2.4 g/dL (3.9-5); Calcium 6.6 mg/dL (8.4-10.2)
[2021-08-19 05:43] LABS: Red Cell Distribution Width 20.5 % (13.2-15.2)
[2021-08-19 05:50] LABS: INR 1.12 (0.87-1.13)
[2021-08-19 05:51] LABS: Partial Thromboplastin Time 30.3 Sec. (24.2-36.6)
[2021-08-19] MEDS ORDERED: SODIUM CHLORIDE 0.9% 500 ML 500 ML IV ONE (06:06)
[2021-08-19] MEDS ORDERED: INSULIN REGULAR, HUMAN 100 UNITS/1 ML IV ONE (06:06)
[2021-08-19] MEDS ORDERED: MAGNESIUM SULFATE 2 GM/50 ML BAG IV ONE (06:06)
--- NOTE | 2021-08-19 06:44 | Cat Scan Report ---
CT HEAD WITHOUT CONTRAST INDICATION / CLINICAL INFORMATION: Unresponsive. TECHNIQUE: CT of the head was performed without administration of intravenous contrast. All CT scans at this location are performed using CT dose reduction for ALARA by means of automated exposure contr ol. COMPARISON: CT head 08/11/2021 FINDINGS: CEREBRAL PARENCHYMA: No significant abnormality. Small stable asymmetric focus of hypoattenuation und erlies the right insular cortex. No acute territorial infarct. Generalized cortical and central atrop hy. Periventricular regions of white matter hypoattenuation compatible with microvascular ischemia. HEMORRHAGE: None. EXTRA-AXIAL SPACES: Normal in size and morphology for the patient's age. VENTRICULAR SYSTEM: Normal in size and morphology for the patient's age. MIDLINE SHIFT / HERNIATION: None. CEREBELLUM / BRAINSTEM: Small lacunar infarction left cerebral hemisphere. ORBITS: Normal as visualized. SOFT TISSUES: No significant abnormality. SKULL: No significant abnormality. PARANASAL SINUSES / MASTOID AIR CELLS: Normal as visualized. ADDITIONAL FINDINGS: None. IMPRESSION: 1. Asymmetric stable focus of diminished attenuation underlying the right insular cortex compatible w ith remote infarction. 2. Remote lacunar infarction left cerebellar hemisphere. 3. Generalized atrophy and features of microvascular ischemia. Signer Name: Harinder Benson II, MD Signed: 08/19/2021 6:39 AM Workstation Name: [id number]
[2021-08-19 07:09] LABS: Chol/HDL Ratio 3.4 %
[2021-08-19] MEDS ORDERED: fentaNYL 100 MCG/2 ML INJ IV PRN (07:10)
[2021-08-19 07:11] LABS: ABG Base Excess 4.3 mmol/L (-2.0-3.0); ABG HCO3 27.6 mmol/L (20.0-26.0); ABG Methemoglobin 0.5 % (0.0-1.5); ABG Oxygen Saturation 99.4 % (95.0-99.0); ABG PCO2 36.3 mm Hg; ABG PH 7.499 pH Units (7.350-7.450); ABG PO2 239.2 mm Hg (80.0-90.0)
[2021-08-19 07:35] LABS: Band Neutrophils # (Manual) 0.1 K/mm3; Basophils % (Manual) 0 % (0.0-1.8); Eosinophils % (Manual) 0 % (0.0-4.3); Total Cells Counted 100
[2021-08-19 07:36] LABS: Anisocytosis 1+; Platelet Estimate Consistent w Auto
[2021-08-19] MEDS ORDERED: DEXTROSE 10% *Hypoglycemia IV ONE ×2 (07:58→09:44)
[2021-08-19] MEDS ORDERED: fentaNYL DRIP Premix 2,000 MCG/100 ML BAG IV SCH (08:00)
[2021-08-19] MEDS ORDERED: DEXTROSE 50% IN WATER (25GM) 50 ML SYRINGE IV PRN (08:36)
--- NOTE | 2021-08-19 08:43 | History and Physical Report ---
History of Present Illness Date of examination: 08/19/21 Date of admission: 08/19/21 Chief complaint: UNRESPONSIVE, HYPOGLYCEMIA History of present illness: Patient is an 86-year-old female with past medical history of diabetes mellitus, end-stage renal disease on hemodialysis, hypertension, recent diagnosis of COVID-19 as well as initial presentation to the hospital with hypoglycemia who presents to the hospital after family found the patient unresponsive timeline is unclear EMS did note that the patient's blood sugar was less than 20. The records are not quite clear to me at this time as it appears the patient received D10 at some point with blood sugar in improving to 200 however the patient remained unresponsive and on arrival to the ED patient was intubated as it was determined that she could not control her airway. Further events including initial lab work showing a blood sugar of 599 and subsequently patient received insulin with a recurrent recheck in blood sugar showing less than 10. Patient is recommended for admission for further evaluation. I did review prior discharge records which showed that although patient was discharged on steroids as part of the protocol for treatment of the COVID-19 she continued on glimepiride on discharge and I am not sure if she continue to take this medication outpatient. She remains very lethargic despite not being on any sedation except fentanyl drip at this time, repeat blood sugar despite a few doses of D10 has remained in the low teens resulting in initiation of D10 drip.. Past History Past Medical History: diabetes, hypertension, hyperlipidemia, other Past Surgical History: Other ( right upper and left upper fistula) Social history: lives with family, full code Family history: no significant family history Medications and Allergies Allergies Allergy/AdvReac Type Severity Reaction Status Date / Time No Known Allergies Allergy Verified 08/12/21 12:49 Home Medications Medication Instructions Recorded Confirmed Last Taken Type amLODIPine 10 mg PO DAILY #30 tablet 01/31/20 08/12/21 Unknown Rx Glimepiride 1 mg PO QDAY #30 tablet 04/21/20 08/12/21 Unknown Rx Diclofenac 1% [Diclofenac 1% 2 - 4 gm TP QID 08/12/21 08/12/21 Unknown History topical gel] Gabapentin 300 mg PO BID 08/12/21 08/12/21 Unknown History Mirtazapine [Remeron 15mg TAB] 15 mg PO QHS 08/12/21 08/12/21 Unknown History cloNIDine [Catapres] 0.1 mg PO BID 08/12/21 08/12/21 Unknown History Ascorbic Acid/Ascorbate Sodium 500 mg PO BID #30 08/17/21 Unknown Rx [Vitamin C 500 mg Tablet Chew] Cholecalciferol Vit D3 [Vitamin D3 1,000 unit PO QDAY #15 tablet 08/17/21 Unknown Rx 1,000 UNIT TAB] Dexamethasone 6 mg PO QID #5 tab 08/17/21 Unknown Rx Famotidine [Pepcid] 20 mg PO QAM #30 tablet 08/17/21 Unknown Rx Zinc Sulfate [Zinc] 220 mg PO BID #30 08/17/21 Unknown Rx Active Meds: Active Medications Amlodipine Besylate (Amlodipine 10 Mg Tab) 10 mg PO DAILY [facility] Cholecalciferol (Cholecalciferol (Vit D3) 1000 Unit (25 Mcg) Tab) 1,000 unit PO QDAY [facility] Famotidine (Famotidine 20 Mg Tab) 20 mg PO QAM [facility] Fentanyl (Fentanyl 100 Mcg/2 Ml Inj) 50 mcg IV Q10MIN PRN PRN Reason: ANALGESIA Gabapentin (Gabapentin 300 Mg Cap) 300 mg PO BID [facility] Fentanyl Citrate (Fentanyl Drip Premix) 2,000 mcg in 100 mls @ 3.742 mls/hr IV TITR [facility]; Protocol Mirtazapine (Mirtazapine 15 Mg Tab) 15 mg PO QHS [facility] Miscellaneous Medication (Zinc Sulfate [Zinc]) 220 mg PO BID [facility] Review of Systems ROS unobtainable: due to endotracheal tube All systems: negative Exam - Physical Exam Narrative exam: VITAL SIGNS: Reviewed. GENERAL: The patient appears normally developed, currently intubated vital signs as documented. HEAD: No signs of head trauma. EYES: Pupils are equal. Unable to assess extraocular movement EARS: Hearing grossly intact. MOUTH: Oropharynx is normal. ET tube otherwise in place NECK: No adenopathy, no JVD. CHEST: Chest with clear breath sounds bilaterally. No wheezes, rales, or rhonchi. CARDIAC: Regular rate and rhythm. S1 and S2, without murmurs, gallops, or rubs. VASCULAR: No Edema. Peripheral pulses normal and equal in all extremities. ABDOMEN: Soft, non tender and non distended. No rebound or guarding, and no masses palpated. Bowel Sounds normal. MUSCULOSKELETAL: Good range of motion of all major joints. Extremities without clubbing, cyanosis or edema. NEUROLOGIC EXAM: Sedated PSYCHIATRIC: Mood unable to examine SKIN: detail exam as documented in skin assessment - Constitutional Vitals: Temp Pulse Resp BP Pulse Ox 95 H 16 141/27 100 08/19/21 08:30 08/19/21 08:01 08/19/21 08:30 08/19/21 08:30 HEART Score - HEART Score Troponin: Troponin T 0.042 ng/mL (0.00-0.029) H 08/19/21 04:53 Results - Labs CBC & Chem 7: 08/19/21 04:53 08/19/21 04:53 Labs: Laboratory Last Values WBC 13.0 K/mm3 (4.5-11.0) H 08/19/21 04:53 RBC 3.03 M/mm3 (3.65-5.03) L 08/19/21 04:53 Hgb 9.1 gm/dl (10.1-14.3) L 08/19/21 04:53 Hct 28.8 % (30.3-42.9) L 08/19/21 04:53 MCV 95 fl (79-97) 08/19/21 04:53 MCH 30 pg (28-32) 08/19/21 04:53 MCHC 32 % (30-34) 08/19/21 04:53 RDW 20.5 % (13.2-15.2) H 08/19/21 04:53 Plt Count 346 K/mm3 (140-440) 08/19/21 04:53 Add Manual Diff Complete 08/19/21 04:53 Total Counted 100 08/19/21 04:53 Seg Neutrophils % Chief Concierge 08/19/21 04:53 Seg Neuts % (Manual) 96.0 % (40.0-70.0) H 08/19/21 04:53 Band Neutrophils % 1.0 % 08/19/21 04:53 Lymphocytes % (Manual) 1.0 % (13.4-35.0) L 08/19/21 04:53 Reactive Lymphs % (Man) 0 % 08/19/21 04:53 Monocytes % (Manual) 2.0 % (0.0-7.3) 08/19/21 04:53 Eosinophils % (Manual) 0 % (0.0-4.3) 08/19/21 04:53 Basophils % (Manual) 0 % (0.0-1.8) 08/19/21 04:53 Metamyelocytes % 0 % 08/19/21 04:53 Myelocytes % 0 % 08/19/21 04:53 Promyelocytes % 0 % 08/19/21 04:53 Blast Cells % 0 % 08/19/21 04:53 Nucleated RBC % Not Reportable 08/19/21 04:53 Seg Neutrophils # Man 12.5 K/mm3 (1.8-7.7) H 08/19/21 04:53 Band Neutrophils # 0.1 K/mm3 08/19/21 04:53 Lymphocytes # (Manual) 0.1 K/mm3 (1.2-5.4) L 08/19/21 04:53 Abs React Lymphs (Man) 0.0 K/mm3 08/19/21 04:53 Monocytes # (Manual) 0.3 K/mm3 (0.0-0.8) 08/19/21 04:53 Eosinophils # (Manual) 0.0 K/mm3 (0.0-0.4) 08/19/21 04:53 Basophils # (Manual) 0.0 K/mm3 (0.0-0.1) 08/19/21 04:53 Metamyelocytes # 0.0 K/mm3 08/19/21 04:53 Myelocytes # 0.0 K/mm3 08/19/21 04:53 Promyelocytes # 0.0 K/mm3 08/19/21 04:53 Blast Cells # 0.0 K/mm3 08/19/21 04:53 WBC Morphology Not Reportable 08/19/21 04:53 Hypersegmented Neuts Not Reportable 08/19/21 04:53 Hyposegmented Neuts Not Reportable 08/19/21 04:53 Hypogranular Neuts Not Reportable 08/19/21 04:53 Smudge Cells Not Reportable 08/19/21 04:53 Toxic Granulation Not Reportable 08/19/21 04:53 Toxic Vacuolation Not Reportable 08/19/21 04:53 Dohle Bodies Not Reportable 08/19/21 04:53 Pelger-Huet Anomaly Not Reportable 08/19/21 04:53 Dhara Rods Not Reportable 08/19/21 04:53 Platelet Estimate Consistent w auto 08/19/21 04:53 Clumped Platelets Not Reportable 08/19/21 04:53 Plt Clumps, EDTA Not Reportable 08/19/21 04:53 Large Platelets Not Reportable 08/19/21 04:53 Giant Platelets Not Reportable 08/19/21 04:53 Platelet Satelliting Not Reportable 08/19/21 04:53 Plt Morphology Comment Not Reportable 08/19/21 04:53 RBC Morphology Not Reportable 08/19/21 04:53 Dimorphic RBCs Not Reportable 08/19/21 04:53 Polychromasia Not Reportable 08/19/21 04:53 Hypochromasia Not Reportable 08/19/21 04:53 Poikilocytosis Not Reportable 08/19/21 04:53 Anisocytosis 1+ 08/19/21 04:53 Microcytosis Not Reportable 08/19/21 04:53 Macrocytosis Not Reportable 08/19/21 04:53 Spherocytes Not Reportable 08/19/21 04:53 Pappenheimer Bodies Not Reportable 08/19/21 04:53 Sickle Cells Not Reportable 08/19/21 04:53 Target Cells Not Reportable 08/19/21 04:53 Tear Drop Cells Not Reportable 08/19/21 04:53 Ovalocytes Not Reportable 08/19/21 04:53 Helmet Cells Not Reportable 08/19/21 04:53 [place] Bodies Not Reportable 08/19/21 04:53 [place] Rings Not Reportable 08/19/21 04:53 [place] Cells Not Reportable 08/19/21 04:53 Bite Cells Not Reportable 08/19/21 04:53 Crenated Cell Not Reportable 08/19/21 04:53 Elliptocytes Few 08/19/21 04:53 Acanthocytes (Spur) Not Reportable 08/19/21 04:53 Rouleaux Not Reportable 08/19/21 04:53 Hemoglobin C Crystals Not Reportable 08/19/21 04:53 Schistocytes Not Reportable 08/19/21 04:53 Malaria parasites Not Reportable 08/19/21 04:53 Keshav Bodies Not Reportable 08/19/21 04:53 Hem Pathologist Commnt No 08/19/21 04:53 PT 15.6 Sec. (12.2-14.9) H 08/19/21 04:53 INR 1.12 (0.87-1.13) 08/19/21 04:53 APTT 30.3 Sec. (24.2-36.6) 08/19/21 04:53 ABG pH 7.499 pH Units (7.350-7.450) H 08/19/21 Unknown ABG pCO2 36.3 mm Hg 08/19/21 Unknown ABG pO2 239.2 mm Hg (80.0-90.0) H 08/19/21 Unknown ABG HCO3 27.6 mmol/L (20.0-26.0) H 08/19/21 Unknown ABG O2 Saturation 99.4 % (95.0-99.0) H 08/19/21 Unknown ABG O2 Content 16.1 (0.0-44) 08/19/21 Unknown ABG Base Excess 4.3 mmol/L (-2.0-3.0) H 08/19/21 Unknown ABG Hemoglobin 11.3 gm/dl (12.0-16.0) L 08/19/21 Unknown ABG Carboxyhemoglobin 1.1 % (0.0-5.0) 08/19/21 Unknown ABG Methemoglobin 0.5 % (0.0-1.5) 08/19/21 Unknown Oxyhemoglobin 97.8 % (95.0-99.0) 08/19/21 Unknown FiO2 100 % 08/19/21 Unknown Sodium 132 mmol/L (137-145) L D 08/19/21 04:53 Potassium 4.5 mmol/L (3.6-5.0) D 08/19/21 04:53 Chloride 96.8 mmol/L (98-107) L 08/19/21 04:53 Carbon Dioxide 25 mmol/L (22-30) 08/19/21 04:53 Anion Gap 15 mmol/L 08/19/21 04:53 BUN 17 mg/dL (7-17) 08/19/21 04:53 Creatinine 3.6 mg/dL (0.6-1.2) H 08/19/21 04:53 Estimated GFR 12 ml/min 08/19/21 04:53 BUN/Creatinine Ratio 5 % 08/19/21 04:53 Glucose 599 mg/dL (65-100) H* 08/19/21 04:53 POC Glucose 115 mg/dL (70-105) H 08/19/21 08:37 Lactic Acid 2.10 mmol/L (0.7-2.0) H* 08/19/21 04:53 Calcium 6.6 mg/dL (8.4-10.2) L D 08/19/21 04:53 Magnesium 1.50 mg/dL (1.7-2.3) L 08/19/21 04:53 Total Bilirubin 0.20 mg/dL (0.1-1.2) 08/19/21 04:53 AST 17 units/L (5-40) 08/19/21 04:53 ALT 6 units/L (7-56) L 08/19/21 04:53 Alkaline Phosphatase 75 units/L (35-129) 08/19/21 04:53 Ammonia 10.0 umol/L (25-60) L 08/19/21 04:53 Total Creatine Kinase 105 units/L (30-135) 08/19/21 04:53 CK-MB (CK-2) 1.1 ng/mL (0.0-4.0) 08/19/21 04:53 CK-MB (CK-2) Rel Index 1.0 (0-4) 08/19/21 04:53 Troponin T 0.042 ng/mL (0.00-0.029) H 08/19/21 04:53 NT-Pro-B Natriuret Pep 09432 pg/mL (0-900) H 08/19/21 06:01 Total Protein 5.4 g/dL (6.3-8.2) L 08/19/21 04:53 Albumin 2.4 g/dL (3.9-5) L 08/19/21 04:53 Albumin/Globulin Ratio 0.8 % 08/19/21 04:53 Triglycerides 122 mg/dL (2-149) 08/19/21 04:53 Cholesterol 160 mg/dL (50-199) 08/19/21 04:53 LDL Cholesterol Direct 88 mg/dL (50-130) 08/19/21 04:53 HDL Cholesterol 47 mg/dL (40-59) 08/19/21 04:53 Cholesterol/HDL Ratio 3.40 % 08/19/21 04:53 Microbiology: Microbiology 08/19/21 06:01 Peripheral/Venous Blood Culture - Preliminary Culture in Progress 08/19/21 06:01 Peripheral/Venous Blood Culture - Preliminary Culture in Progress Assessment and Plan Assessment and plan: Patient is an 86-year-old female with past medical history of diabetes mellitus, end-stage renal disease on hemodialysis, hypertension, recent diagnosis of COVID-19 as well as initial presentation to the hospital with hypoglycemia who presents to the hospital after family found the patient unresponsive timeline is unclear EMS did note that the patient's blood sugar was less than 20. The records are not quite clear to me at this time as it appears the patient received D10 at some point with blood sugar in improving to 200 however the patient remained unresponsive and on arrival to the ED patient was intubated as it was determined that she could not control her airway. Further events including initial lab work showing a blood sugar of 599 and subsequently patient received insulin with a recurrent recheck in blood sugar showing less than 10. Patient is recommended for admission for further evaluation. I did review prior discharge records which showed that although patient was discharged on steroids as part of the protocol for treatment of the COVID-19 she continued on glimepiride on discharge and I am not sure if she continue to take this medication outpatient. She remains very lethargic despite not being on any sedation except fentanyl drip at this time, repeat blood sugar despite a few doses of D10 has remained in the low teens resulting in initiation of D10 drip.. Acute hypoxic respiratory failure Acute metabolic encephalopathy Hypoglycemia Sepsis possible aspiration Hypomagnesemia Severe protein calorie malnutrition End-stage renal disease Recent COVID-19 diagnosis less than 30 days ago Congestive heart failure with preserved EF chronic Recurrent hypoglycemic events PLAN Admit to ICU Compensation And Hris Analyst, infectious disease, nephrology consultation Discussed with nursing staff start the patient on D10 due to persistent hypoglycemia On discharge I would recommend that the patient be discontinued from given glimepiride Continue antibiotics at this time for underlying sepsis possible aspiration Blood cultures Patient is currently on fentanyl drip but anticipated as her mental status begins to improve she may be able to be extubated will defer to insurance agency sales manager for that. DVT and GI prophylaxis COVID-19 protocol per hospital policy The high probability of a clinically significant, sudden or life threatening deterioration of the [multiple organ] system(s) required my full and direct atte ntion, intervention and personal management. The aggregate critical care time was [60 minutes] minutes. This time is in addition to time spent performing reported procedures but includes the following: [X] Data Review and interpretation [X] Patient assessment and monitoring of vital signs [X] Documentation [X] Medication orders and management Advance Directives: Yes Plan of care discussed with patient/family: Yes
[2021-08-19] MEDS ORDERED: NALOXONE 0.4 MG/1 ML INJ IV PRN (09:30)
[2021-08-19] MEDS ORDERED: DEXTROSE 50% IN WATER (25GM) 50 ML SYRINGE IV ONE (09:48)
[2021-08-19] MEDS ORDERED: amLODIPine 10 MG TAB PO SCH (10:00)
[2021-08-19] MEDS ORDERED: ZINC SULFATE 50 MG PO SCH (10:00)
[2021-08-19] MEDS ORDERED: ACETAMINOPHEN 325 MG TAB PO PRN (10:00)
[2021-08-19] MEDS ORDERED: MORPHINE 2 MG/1 ML INJ IV PRN (10:00)
[2021-08-19] MEDS ORDERED: D5W/0.9% NACL 1,000 ML IV SCH (10:00)
[2021-08-19] MEDS ORDERED: ALBUTEROL 2.5 MG/3 ML NEBU IH PRN (11:00)
[2021-08-19] MEDS ORDERED: SODIUM CHLORIDE 0.9% 100 ML IV PRN (11:14)
--- NOTE | 2021-08-19 12:31 | Consultation ---
History of Present Illness - Reason for Consult Consult date: 08/19/21 end stage renal disease Past History Past Medical History: diabetes, hypertension, hyperlipidemia, other Past Surgical History: Other ( right upper and left upper fistula) Social history: lives with family, full code Family history: no significant family history Medications and Allergies Allergies Allergy/AdvReac Type Severity Reaction Status Date / Time No Known Allergies Allergy Verified 08/12/21 12:49 Home Medications Medication Instructions Recorded Confirmed Last Taken Type amLODIPine 10 mg PO DAILY #30 tablet 01/31/20 08/12/21 Unknown Rx Glimepiride 1 mg PO QDAY #30 tablet 04/21/20 08/12/21 Unknown Rx Diclofenac 1% [Diclofenac 1% 2 - 4 gm TP QID 08/12/21 08/12/21 Unknown History topical gel] Gabapentin 300 mg PO BID 08/12/21 08/12/21 Unknown History Mirtazapine [Remeron 15mg TAB] 15 mg PO QHS 08/12/21 08/12/21 Unknown History cloNIDine [Catapres] 0.1 mg PO BID 08/12/21 08/12/21 Unknown History Ascorbic Acid/Ascorbate Sodium 500 mg PO BID #30 08/17/21 Unknown Rx [Vitamin C 500 mg Tablet Chew] Cholecalciferol Vit D3 [Vitamin D3 1,000 unit PO QDAY #15 tablet 08/17/21 Unknown Rx 1,000 UNIT TAB] Dexamethasone 6 mg PO QID #5 tab 08/17/21 Unknown Rx Famotidine [Pepcid] 20 mg PO QAM #30 tablet 08/17/21 Unknown Rx Zinc Sulfate [Zinc] 220 mg PO BID #30 08/17/21 Unknown Rx Active Meds: Active Medications Acetaminophen (Acetaminophen 325 Mg Tab) 650 mg PO Q6H PRN PRN Reason: Pain MILD(1-3)/Fever >100.5/MEHTA Albuterol (Albuterol 2.5 Mg/3 Ml Nebu) 2.5 mg IH Q3HRT PRN PRN Reason: Shortness Of Breath Albuterol/Ipratropium (Ipratropium/Albuterol Sulfate 3 Ml Ampul.Neb) 1 ampul IH Q6HRT [facility] Amlodipine Besylate (Amlodipine 10 Mg Tab) 10 mg PO DAILY [facility] Budesonide (Budesonide 0.5 Mg/2 Ml Nebu) 0.5 mg IH Q12HRT [facility] Cholecalciferol (Cholecalciferol (Vit D3) 1000 Unit (25 Mcg) Tab) 1,000 unit PO QDAY [facility] Dextrose (Dextrose 10% *Hypoglycemia) 0 ml IV PRN PRN PRN Reason: Hypoglycemia Famotidine (Famotidine 20 Mg Tab) 20 mg PO QAM [facility] Fentanyl (Fentanyl 100 Mcg/2 Ml Inj) 50 mcg IV Q10MIN PRN PRN Reason: ANALGESIA Last Admin: 08/19/21 08:59 Dose: 50 mcg Gabapentin (Gabapentin 300 Mg Cap) 300 mg PO BID [facility] Heparin Sodium (Porcine) (Heparin 5,000 Unit/1 Ml Vial) 5,000 unit SUB-Q Q8HR [facility] Fentanyl Citrate (Fentanyl Drip Premix) 2,000 mcg in 100 mls @ 3.742 mls/hr IV TITR [facility]; Protocol Last Admin: 08/19/21 09:53 Dose: 1 mcg/kg/hr, 3.742 mls/hr Dextrose/Sodium Chloride (D5ns) 1,000 mls @ 75 mls/hr IV DIRECT [facility] Last Admin: 08/19/21 10:13 Dose: 75 mls/hr Sodium Chloride (Nacl 0.9%) 100 mls @ 999 mls/hr IV LEVI PRN PRN Reason: Hypotension Dextrose (D10w) 1,000 mls @ 75 mls/hr IV DIRECT [facility] Insulin Human Lispro (Insulin Lispro 100 Unit/Ml) 0 unit SUB-Q Q6HR [facility]; Protocol Mirtazapine (Mirtazapine 15 Mg Tab) 15 mg PO QHS [facility] Morphine Sulfate (Morphine 2 Mg/1 Ml Inj) 2 mg IV Q4H PRN PRN Reason: Pain, Moderate (4-6) Naloxone HCl (Naloxone 0.4 Mg/1 Ml Inj) 0.1 mg IV Q2MIN PRN PRN Reason: Res Rate </= 8 or 02 SAT < 92% Sodium Chloride (Sodium Chloride 0.9% 10 Ml Flush Syringe) 10 ml IV BID [facility] Sodium Chloride (Sodium Chloride 0.9% 10 Ml Flush Syringe) 10 ml IV PRN PRN PRN Reason: LINE FLUSH Zinc Sulfate (Zinc Sulfate 220 Mg Cap) 220 mg PO BID [facility] Exam - Vital Signs Vital signs: Vital Signs Pulse Resp Pulse Ox 95 H 17 100 08/19/21 04:57 08/19/21 04:57 08/19/21 04:57 Results - Lab Results 08/19/21 04:53 08/19/21 04:53 Most recent lab results ABG pH 7.499 pH Units (7.350-7.450) H 08/19/21 Unknown ABG pCO2 36.3 mm Hg 08/19/21 Unknown ABG pO2 239.2 mm Hg (80.0-90.0) H 08/19/21 Unknown ABG HCO3 27.6 mmol/L (20.0-26.0) H 08/19/21 Unknown ABG O2 Saturation 99.4 % (95.0-99.0) H 08/19/21 Unknown Calcium 6.6 mg/dL (8.4-10.2) L D 08/19/21 04:53 Magnesium 1.50 mg/dL (1.7-2.3) L 08/19/21 04:53 Assessment and Plan Impression * End-stage renal disease on maintenance hemodialysis * Acute hypoxic respiratory failure * COVID-19 pneumonia * Hypokalemia * Anemia secondary to ESRD * Diabetes * Hypertension Recommendations * HD today * Continue dialysis MWF * UF as tolerated * Vent management per primary team * Maintain MAP>65 - pressors prn * Antibiotic therapy as per primary team and infectious diseases * Adjust diet and meds for ESRD state * Epogen with dialysis * No IV, BP or venipuncture in her access arm * Avoid nephrotoxins * Monitor fluid status and electrolytes closely
[2021-08-19] MEDS: HEPARIN 5,000 UNIT/1 ML VIAL SUB-Q SCH ×3 (12:39→21:50)
[2021-08-19] MEDS: INSULIN LISPRO 100 UNIT/ML SUB-Q SCH ×2 (12:39→19:02)
[2021-08-19] MEDS: DEXTROSE 10% IN WATER 1,000 ML IV SCH (12:39)
[2021-08-19] MEDS: IPRATROPIUM/ALBUTEROL SULFATE 3 ML AMPUL.NEB IH SCH ×2 (14:00→20:32)
--- NOTE | 2021-08-19 14:12 | Consultation ---
History of Present Illness - Reason for Consult Consult date: 08/19/21 sepsis Requesting physician: JENNIFER CARRILLO - History of Present Illness The patient is an 86-year-old female with diabetes, ESRD on HD, recently hospitalized for COVID-19, was treated with steroids, did not receive Remdesivir due to her ESRD, was hypoxic but gradually weaned to room air at the time of discharge has now been readmitted after being found unresponsive and noted to be severely hypoglycemic with blood sugar < 20. Now intubated, on the vent. Chest x-ray revealed bilateral airspace opacities without any interval change. Afebrile. Review of Systems: Limited due to vent Past History Past Medical History: diabetes, hypertension, hyperlipidemia, other Past Surgical History: Other ( right upper and left upper fistula) Social history: lives with family, full code Family history: no significant family history Medications and Allergies Allergies Allergy/AdvReac Type Severity Reaction Status Date / Time No Known Allergies Allergy Verified 08/12/21 12:49 Home Medications Medication Instructions Recorded Confirmed Last Taken Type amLODIPine 10 mg PO DAILY #30 tablet 01/31/20 08/12/21 Unknown Rx Glimepiride 1 mg PO QDAY #30 tablet 04/21/20 08/12/21 Unknown Rx Diclofenac 1% [Diclofenac 1% 2 - 4 gm TP QID 08/12/21 08/12/21 Unknown History topical gel] Gabapentin 300 mg PO BID 08/12/21 08/12/21 Unknown History Mirtazapine [Remeron 15mg TAB] 15 mg PO QHS 08/12/21 08/12/21 Unknown History cloNIDine [Catapres] 0.1 mg PO BID 08/12/21 08/12/21 Unknown History Ascorbic Acid/Ascorbate Sodium 500 mg PO BID #30 08/17/21 Unknown Rx [Vitamin C 500 mg Tablet Chew] Cholecalciferol Vit D3 [Vitamin D3 1,000 unit PO QDAY #15 tablet 08/17/21 Unknown Rx 1,000 UNIT TAB] Dexamethasone 6 mg PO QID #5 tab 08/17/21 Unknown Rx Famotidine [Pepcid] 20 mg PO QAM #30 tablet 08/17/21 Unknown Rx Zinc Sulfate [Zinc] 220 mg PO BID #30 08/17/21 Unknown Rx Active Meds: Active Medications Acetaminophen (Acetaminophen 325 Mg Tab) 650 mg PO Q6H PRN PRN Reason: Pain MILD(1-3)/Fever >100.5/MEHTA Albuterol (Albuterol 2.5 Mg/3 Ml Nebu) 2.5 mg IH Q3HRT PRN PRN Reason: Shortness Of Breath Albuterol/Ipratropium (Ipratropium/Albuterol Sulfate 3 Ml Ampul.Neb) 1 ampul IH Q6HRT [facility] Amlodipine Besylate (Amlodipine 10 Mg Tab) 10 mg PO DAILY [facility] Budesonide (Budesonide 0.5 Mg/2 Ml Nebu) 0.5 mg IH Q12HRT [facility] Cholecalciferol (Cholecalciferol (Vit D3) 1000 Unit (25 Mcg) Tab) 1,000 unit PO QDAY [facility] Dextrose (Dextrose 10% *Hypoglycemia) 0 ml IV PRN PRN PRN Reason: Hypoglycemia Famotidine (Famotidine 20 Mg Tab) 20 mg PO QAM [facility] Fentanyl (Fentanyl 100 Mcg/2 Ml Inj) 50 mcg IV Q10MIN PRN PRN Reason: ANALGESIA Last Admin: 08/19/21 08:59 Dose: 50 mcg Gabapentin (Gabapentin 300 Mg Cap) 300 mg PO BID [facility] Heparin Sodium (Porcine) (Heparin 5,000 Unit/1 Ml Vial) 5,000 unit SUB-Q Q8HR [facility] Last Admin: 08/19/21 12:39 Dose: 5,000 unit Fentanyl Citrate (Fentanyl Drip Premix) 2,000 mcg in 100 mls @ 3.742 mls/hr IV TITR [facility]; Protocol Last Admin: 08/19/21 09:53 Dose: 1 mcg/kg/hr, 3.742 mls/hr Dextrose/Sodium Chloride (D5ns) 1,000 mls @ 75 mls/hr IV DIRECT [facility] Last Admin: 08/19/21 10:13 Dose: 75 mls/hr Sodium Chloride (Nacl 0.9%) 100 mls @ 999 mls/hr IV LEVI PRN PRN Reason: Hypotension Dextrose (D10w) 1,000 mls @ 75 mls/hr IV DIRECT [facility] Last Admin: 08/19/21 12:39 Dose: 75 mls/hr Cefepime HCl (Cefepime/Ns 1 Gm/100 Ml) 1 gm in 100 mls @ 200 mls/hr IV QPM [facility]; Protocol Vancomycin HCl 1,000 mg/ (Sodium Chloride) 520 mls @ 333 mls/hr IV ONCE ONE; Protocol Stop: 08/19/21 15:39 Insulin Human Lispro (Insulin Lispro 100 Unit/Ml) 0 unit SUB-Q Q6HR [facility]; P rotocol Last Admin: 08/19/21 12:39 Dose: Not Given Mirtazapine (Mirtazapine 15 Mg Tab) 15 mg PO QHS [facility] Morphine Sulfate (Morphine 2 Mg/1 Ml Inj) 2 mg IV Q4H PRN PRN Reason: Pain, Moderate (4-6) Naloxone HCl (Naloxone 0.4 Mg/1 Ml Inj) 0.1 mg IV Q2MIN PRN PRN Reason: Res Rate </= 8 or 02 SAT < 92% Sodium Chloride (Sodium Chloride 0.9% 10 Ml Flush Syringe) 10 ml IV BID [facility] Last Admin: 08/19/21 12:42 Dose: 10 ml Sodium Chloride (Sodium Chloride 0.9% 10 Ml Flush Syringe) 10 ml IV PRN PRN PRN Reason: LINE FLUSH Zinc Sulfate (Zinc Sulfate 220 Mg Cap) 220 mg PO BID [facility] Physical Examination - Physical Exam Narrative exam: Physical Exam: Constitutional: intubated, on the vent Head, Ears, Nose: Normocephalic, atraumatic. External ears, nose normal Eyes: Conjunctivae/corneas clear. No icterus. No ptosis. Neck: intubated Oral: intubated Cardiovascular: S1, S2 + Respiratory: AE fair bilaterally and equal GI: Soft, bowel sounds + Musculoskeletal: No pedal edema, no cyanosis. Skin: No rash or abscess Hem/Lymphatic: No palpable cervical or supraclavicular nodes. No lymphangitis Psych: no agitation Neurological: unresponsive, intubated, on the vent, exam limited - Constitutional Vitals: Vital Signs Temp Pulse Resp BP Pulse Ox 102 H 16 184/81 100 08/19/21 11:36 08/19/21 10:34 08/19/21 11:36 08/19/21 11:36 Results - Labs CBC & Chem 7: 08/19/21 04:53 08/19/21 04:53 Labs: Abnormal lab results 08/19/21 08/19/21 08/19/21 Range/Units 04:53 04:53 04:53 WBC 13.0 H (4.5-11.0) K/mm3 RBC 3.03 L (3.65-5.03) M/mm3 Hgb 9.1 L (10.1-14.3) gm/dl Hct 28.8 L (30.3-42.9) % RDW 20.5 H (13.2-15.2) % Seg Neuts % (Manual) 96.0 H (40.0-70.0) % Lymphocytes % (Manual) 1.0 L (13.4-35.0) % Seg Neutrophils # Man 12.5 H (1.8-7.7) K/mm3 Lymphocytes # (Manual) 0.1 L (1.2-5.4) K/mm3 PT 15.6 H (12.2-14.9) Sec. ABG pH (7.350-7.450) pH Units ABG pO2 (80.0-90.0) mm Hg ABG HCO3 (20.0-26.0) mmol/L ABG O2 Saturation (95.0-99.0) % ABG Base Excess (-2.0-3.0) mmol/L ABG Hemoglobin (12.0-16.0) gm/dl Sodium 132 L D (137-145) mmol/L Chloride 96.8 L (98-107) mmol/L Creatinine 3.6 H (0.6-1.2) mg/dL Glucose 599 H* (65-100) mg/dL POC Glucose (70-105) mg/dL Lactic Acid (0.7-2.0) mmol/L Calcium 6.6 L D (8.4-10.2) mg/dL Magnesium 1.50 L (1.7-2.3) mg/dL ALT 6 L (7-56) units/L Ammonia (25-60) umol/L Troponin T 0.042 H (0.00-0.029) ng/mL NT-Pro-B Natriuret Pep (0-900) pg/mL Total Protein 5.4 L (6.3-8.2) g/dL Albumin 2.4 L (3.9-5) g/dL TSH (0.270-4.200) mlU/mL Coronavirus (PCR) (Negative) 08/19/21 08/19/21 08/19/21 Range/Units 04:53 04:53 06:01 WBC (4.5-11.0) K/mm3 RBC (3.65-5.03) M/mm3 Hgb (10.1-14.3) gm/dl Hct (30.3-42.9) % RDW (13.2-15.2) % Seg Neuts % (Manual) (40.0-70.0) % Lymphocytes % (Manual) (13.4-35.0) % Seg Neutrophils # Man (1.8-7.7) K/mm3 Lymphocytes # (Manual) (1.2-5.4) K/mm3 PT (12.2-14.9) Sec. ABG pH (7.350-7.450) pH Units ABG pO2 (80.0-90.0) mm Hg ABG HCO3 (20.0-26.0) mmol/L ABG O2 Saturation (95.0-99.0) % ABG Base Excess (-2.0-3.0) mmol/L ABG Hemoglobin (12.0-16.0) gm/dl Sodium (137-145) mmol/L Chloride (98-107) mmol/L Creatinine (0.6-1.2) mg/dL Glucose (65-100) mg/dL POC Glucose (70-105) mg/dL Lactic Acid 2.10 H* (0.7-2.0) mmol/L Calcium (8.4-10.2) mg/dL Magnesium (1.7-2.3) mg/dL ALT (7-56) units/L Ammonia 10.0 L (25-60) umol/L Troponin T (0.00-0.029) ng/mL NT-Pro-B Natriuret Pep 77798 H (0-900) pg/mL Total Protein (6.3-8.2) g/dL Albumin (3.9-5) g/dL TSH (0.270-4.200) mlU/mL Coronavirus (PCR) (Negative) 08/19/21 08/19/21 08/19/21 Range/Units 07:54 08:30 08:30 WBC (4.5-11.0) K/mm3 RBC (3.65-5.03) M/mm3 Hgb (10.1-14.3) gm/dl Hct (30.3-42.9) % RDW (13.2-15.2) % Seg Neuts % (Manual) (40.0-70.0) % Lymphocytes % (Manual) (13.4-35.0) % Seg Neutrophils # Man (1.8-7.7) K/mm3 Lymphocytes # (Manual) (1.2-5.4) K/mm3 PT (12.2-14.9) Sec. ABG pH (7.350-7.450) pH Units ABG pO2 (80.0-90.0) mm Hg ABG HCO3 (20.0-26.0) mmol/L ABG O2 Saturation (95.0-99.0) % ABG Base Excess (-2.0-3.0) mmol/L ABG Hemoglobin (12.0-16.0) gm/dl Sodium (137-145) mmol/L Chloride (98-107) mmol/L Creatinine (0.6-1.2) mg/dL Glucose (65-100) mg/dL POC Glucose < 10 L (70-105) mg/dL Lactic Acid 3.20 H* (0.7-2.0) mmol/L Calcium (8.4-10.2) mg/dL Magnesium (1.7-2.3) mg/dL ALT (7-56) units/L Ammonia (25-60) umol/L Troponin T (0.00-0.029) ng/mL NT-Pro-B Natriuret Pep (0-900) pg/mL Total Protein (6.3-8.2) g/dL Albumin (3.9-5) g/dL TSH 4.850 H (0.270-4.200) mlU/mL Coronavirus (PCR) (Negative) 08/19/21 08/19/21 08/19/21 Range/Units 08:37 09:43 10:07 WBC (4.5-11.0) K/mm3 RBC (3.65-5.03) M/mm3 Hgb (10.1-14.3) gm/dl Hct (30.3-42.9) % RDW (13.2-15.2) % Seg Neuts % (Manual) (40.0-70.0) % Lymphocytes % (Manual) (13.4-35.0) % Seg Neutrophils # Man (1.8-7.7) K/mm3 Lymphocytes # (Manual) (1.2-5.4) K/mm3 PT (12.2-14.9) Sec. ABG pH (7.350-7.450) pH Units ABG pO2 (80.0-90.0) mm Hg ABG HCO3 (20.0-26.0) mmol/L ABG O2 Saturation (95.0-99.0) % ABG Base Excess (-2.0-3.0) mmol/L ABG Hemoglobin (12.0-16.0) gm/dl Sodium (137-145) mmol/L Chloride (98-107) mmol/L Creatinine (0.6-1.2) mg/dL Glucose (65-100) mg/dL POC Glucose 115 H < 10 L 109 H (70-105) mg/dL Lactic Acid (0.7-2.0) mmol/L Calcium (8.4-10.2) mg/dL Magnesium (1.7-2.3) mg/dL ALT (7-56) units/L Ammonia (25-60) umol/L Troponin T (0.00-0.029) ng/mL NT-Pro-B Natriuret Pep (0-900) pg/mL Total Protein (6.3-8.2) g/dL Albumin (3.9-5) g/dL TSH (0.270-4.200) mlU/mL Coronavirus (PCR) (Negative) 08/19/21 08/19/21 08/19/21 Range/Units 11:05 11:49 Unknown WBC (4.5-11.0) K/mm3 RBC (3.65-5.03) M/mm3 Hgb (10.1-14.3) gm/dl Hct (30.3-42.9) % RDW (13.2-15.2) % Seg Neuts % (Manual) (40.0-70.0) % Lymphocytes % (Manual) (13.4-35.0) % Seg Neutrophils # Man (1.8-7.7) K/mm3 Lymphocytes # (Manual) (1.2-5.4) K/mm3 PT (12.2-14.9) Sec. ABG pH (7.350-7.450) pH Units ABG pO2 (80.0-90.0) mm Hg ABG HCO3 (20.0-26.0) mmol/L ABG O2 Saturation (95.0-99.0) % ABG Base Excess (-2.0-3.0) mmol/L ABG Hemoglobin (12.0-16.0) gm/dl Sodium (137-145) mmol/L Chloride (98-107) mmol/L Creatinine (0.6-1.2) mg/dL Glucose (65-100) mg/dL POC Glucose 32 L 164 H (70-105) mg/dL Lactic Acid (0.7-2.0) mmol/L Calcium (8.4-10.2) mg/dL Magnesium (1.7-2.3) mg/dL ALT (7-56) units/L Ammonia (25-60) umol/L Troponin T (0.00-0.029) ng/mL NT-Pro-B Natriuret Pep (0-900) pg/mL Total Protein (6.3-8.2) g/dL Albumin (3.9-5) g/dL TSH (0.270-4.200) mlU/mL Coronavirus (PCR) Positive A (Negative) 08/19/21 Range/Units Unknown WBC (4.5-11.0) K/mm3 RBC (3.65-5.03) M/mm3 Hgb (10.1-14.3) gm/dl Hct (30.3-42.9) % RDW (13.2-15.2) % Seg Neuts % (Manual) (40.0-70.0) % Lymphocytes % (Manual) (13.4-35.0) % Seg Neutrophils # Man (1.8-7.7) K/mm3 Lymphocytes # (Manual) (1.2-5.4) K/mm3 PT (12.2-14.9) Sec. ABG pH 7.499 H (7.350-7.450) pH Units ABG pO2 239.2 H (80.0-90.0) mm Hg ABG HCO3 27.6 H (20.0-26.0) mmol/L ABG O2 Saturation 99.4 H (95.0-99.0) % ABG Base Excess 4.3 H (-2.0-3.0) mmol/L ABG Hemoglobin 11.3 L (12.0-16.0) gm/dl Sodium (137-145) mmol/L Chloride (98-107) mmol/L Creatinine (0.6-1.2) mg/dL Glucose (65-100) mg/dL POC Glucose (70-105) mg/dL Lactic Acid (0.7-2.0) mmol/L Calcium (8.4-10.2) mg/dL Magnesium (1.7-2.3) mg/dL ALT (7-56) units/L Ammonia (25-60) umol/L Troponin T (0.00-0.029) ng/mL NT-Pro-B Natriuret Pep (0-900) pg/mL Total Protein (6.3-8.2) g/dL Albumin (3.9-5) g/dL TSH (0.270-4.200) mlU/mL Coronavirus (PCR) (Negative) - Imaging and Cardiology Chest x-ray: report reviewed, image reviewed (b/l airspace opacities without much interval change. ) Assessment and Plan Cultures: 08/19/2021 blood culture: In process 08/19/2021 COVID-19 PCR: Positive A/P: 86-year-old female with diabetes, ESRD on HD, recently hospitalized for COVID- 19, was treated with steroids, did not receive Remdesivir due to her ESRD, was hypoxic but gradually weaned to room air at the time of discharge has now been readmitted after being found unresponsive and noted to be severely hypoglycemic with blood sugar < 20 mg/dl. #Recent COVID-19 pneumonia: Treated with steroids, Remdesivir not indicated. CXR with b/l airspace opacities without much interval change, likely represents COVID-19 sequelae, might take a while before imaging shows improvement. #Acute hypoxic respiratory failure: Due to above. #ESRD on HD: Renally adjust antibiotics #Acute encephalopathy: Likely metabolic given severe hypoglycemia Recs: Follow-up blood cultures, respiratory cultures Empiric cefepime, vancomycin for now, renally dosed Allyssa Riddle MD, FACP, [facility] O: [phone] F: [phone]
[2021-08-19] MEDS: DEXTROSE 10% *Hypoglycemia IV PRN ×7 (14:34→23:35)
--- NOTE | 2021-08-19 14:52 | Consultation ---
History of Present Illness Consult date: 08/19/21 Requesting physician: JENNIFER CARRILLO Consult reason: other (NSTEMI type II) History of present illness: Patient is an 86-year-old female with a past medical history of end-stage renal disease on hemodialysis, hypertension, diabetes, and recent COVID-19 infection who was brought to the ED today after the patient was found by family to be unresponsive. History is taken from the chart due to patient being intubated. Per documentation EMS was notified and patient was found to have a blood sugar of less than 20 patient was given D10 and blood glucose improved to 200 however patient was still unresponsive. Patient was intubated due to inability to protect airway. Of note patient was found to have lactic acidosis, elevated BNP, minimally elevated troponin, and chest x-ray showed bilateral opacity. Patient was previous seen by our practice in prior admission in 2019 but never followed up with us as an outpatient. Cardiology is consulted for NSTEMI Past History Past Medical History: diabetes, hypertension, hyperlipidemia, other Past Surgical History: Other ( right upper and left upper fistula) Social history: lives with family, full code Family history: no significant family history Medications and Allergies Allergies Allergy/AdvReac Type Severity Reaction Status Date / Time No Known Allergies Allergy Verified 08/12/21 12:49 Home Medications Medication Instructions Recorded Confirmed Last Taken Type amLODIPine 10 mg PO DAILY #30 tablet 01/31/20 08/12/21 Unknown Rx Glimepiride 1 mg PO QDAY #30 tablet 04/21/20 08/12/21 Unknown Rx Diclofenac 1% [Diclofenac 1% 2 - 4 gm TP QID 08/12/21 08/12/21 Unknown History topical gel] Gabapentin 300 mg PO BID 08/12/21 08/12/21 Unknown History Mirtazapine [Remeron 15mg TAB] 15 mg PO QHS 08/12/21 08/12/21 Unknown History cloNIDine [Catapres] 0.1 mg PO BID 08/12/21 08/12/21 Unknown History Ascorbic Acid/Ascorbate Sodium 500 mg PO BID #30 08/17/21 Unknown Rx [Vitamin C 500 mg Tablet Chew] Cholecalciferol Vit D3 [Vitamin D3 1,000 unit PO QDAY #15 tablet 08/17/21 Unknown Rx 1,000 UNIT TAB] Dexamethasone 6 mg PO QID #5 tab 08/17/21 Unknown Rx Famotidine [Pepcid] 20 mg PO QAM #30 tablet 08/17/21 Unknown Rx Zinc Sulfate [Zinc] 220 mg PO BID #30 08/17/21 Unknown Rx Active Meds: Active Medications Acetaminophen (Acetaminophen 325 Mg Tab) 650 mg PO Q6H PRN PRN Reason: Pain MILD(1-3)/Fever >100.5/MEHTA Albuterol (Albuterol 2.5 Mg/3 Ml Nebu) 2.5 mg IH Q3HRT PRN PRN Reason: Shortness Of Breath Albuterol/Ipratropium (Ipratropium/Albuterol Sulfate 3 Ml Ampul.Neb) 1 ampul IH Q6HRT [facility] Amlodipine Besylate (Amlodipine 10 Mg Tab) 10 mg PO DAILY [facility] Budesonide (Budesonide 0.5 Mg/2 Ml Nebu) 0.5 mg IH Q12HRT [facility] Cholecalciferol (Cholecalciferol (Vit D3) 1000 Unit (25 Mcg) Tab) 1,000 unit PO QDAY [facility] Dextrose (Dextrose 10% *Hypoglycemia) 0 ml IV PRN PRN PRN Reason: Hypoglycemia Last Admin: 08/19/21 14:36 Dose: 100 ml Famotidine (Famotidine 20 Mg Tab) 20 mg PO QAM [facility] Fentanyl (Fentanyl 100 Mcg/2 Ml Inj) 50 mcg IV Q10MIN PRN PRN Reason: ANALGESIA Last Admin: 08/19/21 08:59 Dose: 50 mcg Gabapentin (Gabapentin 300 Mg Cap) 300 mg PO BID [facility] Heparin Sodium (Porcine) (Heparin 5,000 Unit/1 Ml Vial) 5,000 unit SUB-Q Q8HR [facility] Last Admin: 08/19/21 12:39 Dose: 5,000 unit Fentanyl Citrate (Fentanyl Drip Premix) 2,000 mcg in 100 mls @ 3.742 mls/hr IV TITR [facility]; Protocol Last Admin: 08/19/21 09:53 Dose: 1 mcg/kg/hr, 3.742 mls/hr Dextrose/Sodium Chloride (D5ns) 1,000 mls @ 75 mls/hr IV DIRECT [facility]NA[facility] Last Admin: 08/19/21 10:13 Dose: 75 mls/hr Sodium Chloride (Nacl 0.9%) 100 mls @ 999 mls/hr IV LEVI PRN PRN Reason: Hypotension Dextrose (D10w) 1,000 mls @ 75 mls/hr IV DIRECT [facility] Last Admin: 08/19/21 12:39 Dose: 75 mls/hr Cefepime HCl (Cefepime/Ns 1 Gm/100 Ml) 1 gm in 100 mls @ 200 mls/hr IV QPM [facility]; Protocol Vancomycin HCl (Vancomycin/Ns 1 Gm/250 Ml) 1 gm in 250 mls @ 160.085 mls/hr IV ONCE ONE; Protocol Stop: 08/19/21 16:33 Insulin Human Lispro (Insulin Lispro 100 Unit/Ml) 0 unit SUB-Q Q6HR [facility]; Protocol Last Admin: 08/19/21 12:39 Dose: Not Given Mirtazapine (Mirtazapine 15 Mg Tab) 15 mg PO QHS [facility] Morphine Sulfate (Morphine 2 Mg/1 Ml Inj) 2 mg IV Q4H PRN PRN Reason: Pain, Moderate (4-6) Naloxone HCl (Naloxone 0.4 Mg/1 Ml Inj) 0.1 mg IV Q2MIN PRN PRN Reason: Res Rate </= 8 or 02 SAT < 92% Sodium Chloride (Sodium Chloride 0.9% 10 Ml Flush Syringe) 10 ml IV BID [facility] Last Admin: 08/19/21 12:42 Dose: 10 ml Sodium Chloride (Sodium Chloride 0.9% 10 Ml Flush Syringe) 10 ml IV PRN PRN PRN Reason: LINE FLUSH Zinc Sulfate (Zinc Sulfate 220 Mg Cap) 220 mg PO BID [facility] Review of Systems ROS unobtainable: due to endotracheal tube, due to mental status Physical Examination Vital Signs Pulse Resp Pulse Ox 95 H 17 100 08/19/21 04:57 08/19/21 04:57 08/19/21 04:57 General appearance: other (Intubated and sedated) Neck: Positive: trachea midline Cardiac: Positive: Reg Rate and Rhythm, Systolic Murmur (Grade 2 out of 6 systol ic murmur) Lungs: Positive: Ventilated Respirations Neuro: Positive: Other (Unable to assess due to intubation and sedation) Skin: Negative: Rash, Suspicious Lesions, Ulceration Extremities: Present: upper extr. pulses. Absent: edema Results 08/19/21 04:53 08/19/21 04:53 Cardiac Enzymes 08/19/21 Range/Units 04:53 AST 17 (5-40) units/L CK-MB (CK-2) 1.1 (0.0-4.0) ng/mL Coagulation 08/19/21 Range/Units 04:53 PT 15.6 H (12.2-14.9) Sec. INR 1.12 (0.87-1.13) APTT 30.3 (24.2-36.6) Sec. Lipids 08/19/21 Range/Units 04:53 Triglycerides 122 (2-149) mg/dL Cholesterol 160 (50-199) mg/dL HDL Cholesterol 47 (40-59) mg/dL Cholesterol/HDL Ratio 3.40 % CBC 08/19/21 Range/Units 04:53 WBC 13.0 H (4.5-11.0) K/mm3 RBC 3.03 L (3.65-5.03) M/mm3 Hgb 9.1 L (10.1-14.3) gm/dl Hct 28.8 L (30.3-42.9) % Plt Count 346 (140-440) K/mm3 Comprehensive Metabolic Panel 08/19/21 Range/Units 04:53 Sodium 132 L D (137-145) mmol/L Potassium 4.5 D (3.6-5.0) mmol/L Chloride 96.8 L (98-107) mmol/L Carbon Dioxide 25 (22-30) mmol/L BUN 17 (7-17) mg/dL Creatinine 3.6 H (0.6-1.2) mg/dL Glucose 599 H* (65-100) mg/dL Calcium 6.6 L D (8.4-10.2) mg/dL AST 17 (5-40) units/L ALT 6 L (7-56) units/L Alkaline Phosphatase 75 (35-129) units/L Total Protein 5.4 L (6.3-8.2) g/dL Albumin 2.4 L (3.9-5) g/dL - Imaging and Cardiology Echo: pending, report reviewed EKG interpretations - Telemetry EKG Rhythm: Sinus Tachycardia - EKG Sinus rhythms and dysrhythmias: sinus tachycardia Repolarization changes or abnormalities: nonspecific abnormality, ST segment, and/or T wave Assessment and Plan Patient is an 86-year-old female with a past medical history of end-stage renal disease on hemodialysis, hypertension, diabetes, and recent COVID-19 infection who was brought to the ED today after the patient was found by family to be unresponsive Acute respiratory failure-pulmonology follow End-stage renal disease on hemodialysis-nephrology following Sepsis COVID-19-ID following NSTEMI type II Anemia Hypoglycemia Hypomagnesemia Echo03/2020 -Moderate concentric left ventricular hypertrophy.Left ventricular ejection fraction is 60-65%. There is moderately increased filling pressure consistent with grade 2 diastolic dysfunction. Aortic valve is tricuspid, sclerotic and focally calcified. Mild aortic stenosis. Mild to moderate aortic valve insufficiency. The left ventricular size is small. The aortic valve max velocity is 2.57 m/s. The peak gradient is 26.4 mmHg with a mean gradient of 16.0 mmHg, the left ventricle outflow tract measures 2.00 cm. CORNELIA (VTI) is 1.08 cm. Mild mitral valve regurgitation.Normal right ventricular size and wall thickness. There is small pleural effusion in the left lateral region. There is small pleural effusion in the right lateral region.No pericardial effusion seen. Lexiscan MPI stress test 05/14/2019-normal myocardial perfusion without evidence of ischemia or prior infarction Plan: EKG shows sinus tachycardia [address] T abnormalities. No acute ischemic change. Troponins minimally elevated 0.04 Troponin elevation likely in setting of sepsis and hypoglycemia BNP noted to be elevated. However patient appears euvolemic on exam with no bilateral lower extremity edema and lungs sound clear BNP likely elevated in setting of end-stage renal disease Due to renal function will avoid nephrotoxic agents including JORDANA/ ARB Will defer volume management to nephrology Echo pending Agree with amlodipine 10 mg p.o. daily for hypertension Patient seen in conjunction with Dr. Hernandez who agrees with this plan of care - Patient Problems (1) Acute encephalopathy Current Visit: Yes Status: Acute (2) COVID-19 Current Visit: Yes Status: Acute (3) Hypomagnesemia Current Visit: Yes Status: Acute (4) Malnutrition Current Visit: Yes Status: Acute (5) Acute metabolic encephalopathy due to hypoglycemia Current Visit: No Status: Acute (6) Acute respiratory failure with hypoxia Current Visit: No Status: Acute (7) Anemia in chronic illness Current Visit: No Status: Acute (8) ESRD (end stage renal disease) on dialysis Current Visit: No Status: Acute (9) Sepsis Current Visit: No Status: Acute
[2021-08-19] MEDS ORDERED: VANCOMYCIN/NS 1 GM/250 ML 1 GM/250 ML BAG IV ONE (15:00)
[2021-08-19] MEDS ORDERED: VANCOMYCIN PHARMACY TO DOSE IV SCH (15:00)
[2021-08-19] MEDS: FAMOTIDINE 20 MG TAB PO SCH (15:11)
[2021-08-19] MEDS: GABAPENTIN 300 MG CAP PO SCH ×2 (15:11→21:49)
[2021-08-19] MEDS: CHOLECALCIFEROL (VIT D3) 1000 UNIT (25 mcg) TAB PO SCH (15:11)
[2021-08-19] MEDS: CEFEPIME/NS 1 GM/100 ML 1 GM/100 ML BAG IV SCH (17:39)
[2021-08-19] MEDS ORDERED: SIMPLE SYRUP 15 ML FEEDTUBE PRN (17:44)
--- NOTE | 2021-08-19 18:16 | Consultation ---
History of Present Illness Consult date: 08/19/21 Requesting physician: JENNIFER CARRILLO History of present illness: HISTORY PER MEDICAL RECORDS- SHE WAS INTUABTED AND SEDATED WHEN I SAW HER Patient is an 86-year-old female with past medical history of diabetes mellitus, end-stage renal disease on hemodialysis, hypertension, recent diagnosis of COVID-19 as well as initial presentation to the hospital with hypoglycemia who presents to the hospital after family found the patient unresponsive timeline is unclear EMS did note that the patient's blood sugar was less than 20. The records are not quite clear to me at this time as it appears the patient received D10 at some point with blood sugar in improving to 200 however the patient remained unresponsive and on arrival to the ED patient was intubated as it was determined that she could not control her airway. Further events including initial lab work showing a blood sugar of 599 and subsequently patient received insulin with a recurrent recheck in blood sugar showing less than 10. A critical care consult was placed fro acute resp failure secondary , requiring oral intubation and MVS to severe hypoglycemia with acute metabolic encep halopathy and inability to protect her airway. Patient seen and examined. Vitals, labs, medications, chart and imaging reviewed. She is unresponsive, orally intubated to MVS with persistent hypoglycemia. Discussed with respiratory and nursing care staff. Past History Past Medical History: diabetes, hypertension, hyperlipidemia, other Past Surgical History: Other ( right upper and left upper fistula) Social history: lives with family, full code Family history: no significant family history Medications and Allergies Allergies Allergy/AdvReac Type Severity Reaction Status Date / Time No Known Allergies Allergy Verified 08/12/21 12:49 Home Medications Medication Instructions Recorded Confirmed Last Taken Type amLODIPine 10 mg PO DAILY #30 tablet 01/31/20 08/12/21 Unknown Rx Glimepiride 1 mg PO QDAY #30 tablet 04/21/20 08/12/21 Unknown Rx Diclofenac 1% [Diclofenac 1% 2 - 4 gm TP QID 08/12/21 08/12/21 Unknown History topical gel] Gabapentin 300 mg PO BID 08/12/21 08/12/21 Unknown History Mirtazapine [Remeron 15mg TAB] 15 mg PO QHS 08/12/21 08/12/21 Unknown History cloNIDine [Catapres] 0.1 mg PO BID 08/12/21 08/12/21 Unknown History Ascorbic Acid/Ascorbate Sodium 500 mg PO BID #30 08/17/21 Unknown Rx [Vitamin C 500 mg Tablet Chew] Cholecalciferol Vit D3 [Vitamin D3 1,000 unit PO QDAY #15 tablet 08/17/21 Unknown Rx 1,000 UNIT TAB] Dexamethasone 6 mg PO QID #5 tab 08/17/21 Unknown Rx Famotidine [Pepcid] 20 mg PO QAM #30 tablet 08/17/21 Unknown Rx Zinc Sulfate [Zinc] 220 mg PO BID #30 08/17/21 Unknown Rx Active Meds: Active Medications Acetaminophen (Acetaminophen 325 Mg Tab) 650 mg PO Q6H PRN PRN Reason: Pain MILD(1-3)/Fever >100.5/MEHTA Albuterol (Albuterol 2.5 Mg/3 Ml Nebu) 2.5 mg IH Q3HRT PRN PRN Reason: Shortness Of Breath Albuterol/Ipratropium (Ipratropium/Albuterol Sulfate 3 Ml Ampul.Neb) 1 ampul IH Q6HRT [facility] Amlodipine Besylate (Amlodipine 10 Mg Tab) 10 mg PO DAILY [facility] Last Admin: 08/19/21 15:10 Dose: Not Given Budesonide (Budesonide 0.5 Mg/2 Ml Nebu) 0.5 mg IH Q12HRT [facility] Cholecalciferol (Cholecalciferol (Vit D3) 1000 Unit (25 Mcg) Tab) 1,000 unit PO QDAY [facility] Last Admin: 08/19/21 15:11 Dose: Not Given Dextrose (Dextrose 10% *Hypoglycemia) 0 ml IV PRN PRN PRN Reason: Hypoglycemia Last Admin: 08/19/21 17:42 Dose: 100 ml Famotidine (Famotidine 20 Mg Tab) 20 mg PO QAM [facility] Last Admin: 08/19/21 15:11 Dose: Not Given Fentanyl (Fentanyl 100 Mcg/2 Ml Inj) 50 mcg IV Q10MIN PRN PRN Reason: ANALGESIA Last Admin: 08/19/21 08:59 Dose: 50 mcg Gabapentin (Gabapentin 300 Mg Cap) 300 mg PO BID [facility] Last Admin: 08/19/21 15:11 Dose: Not Given Heparin Sodium (Porcine) (Heparin 5,000 Unit/1 Ml Vial) 5,000 unit SUB-Q Q8HR [facility] Last Admin: 08/19/21 17:39 Dose: 5,000 unit Fentanyl Citrate (Fentanyl Drip Premix) 2,000 mcg in 100 mls @ 3.742 mls/hr IV TITR ANAHY; Protocol Last Admin: 08/19/21 09:53 Dose: 1 mcg/kg/hr, 3.742 mls/hr Dextrose/Sodium Chloride (D5ns) 1,000 mls @ 75 mls/hr IV DIRECT ANAHY Last Infusion: 08/19/21 12:35 Dose: 0 mls/hr Sodium Chloride (Nacl 0.9%) 100 mls @ 999 mls/hr IV LEVI PRN PRN Reason: Hypotension Dextrose (D10w) 1,000 mls @ 75 mls/hr IV DIRECT ANAHY Last Admin: 08/19/21 12:39 Dose: 75 mls/hr Cefepime HCl (Cefepime/Ns 1 Gm/100 Ml) 1 gm in 100 mls @ 200 mls/hr IV QPM [facility]; Protocol Last Admin: 08/19/21 17:39 Dose: 200 mls/hr Insulin Human Lispro (Insulin Lispro 100 Unit/Ml) 0 unit SUB-Q Q6HR ANAHY; Shelly col Last Admin: 08/19/21 12:39 Dose: Not Given Mirtazapine (Mirtazapine 15 Mg Tab) 15 mg PO QHS [facility] Morphine Sulfate (Morphine 2 Mg/1 Ml Inj) 2 mg IV Q4H PRN PRN Reason: Pain, Moderate (4-6) Naloxone HCl (Naloxone 0.4 Mg/1 Ml Inj) 0.1 mg IV Q2MIN PRN PRN Reason: Res Rate </= 8 or 02 SAT < 92% Simple Syrup (Simple Syrup 15 Ml) 30 ml FEEDTUBE PRN PRN PRN Reason: Hypoglycemia Sodium Chloride (Sodium Chloride 0.9% 10 Ml Flush Syringe) 10 ml IV BID [facility] Last Admin: 08/19/21 12:42 Dose: 10 ml Sodium Chloride (Sodium Chloride 0.9% 10 Ml Flush Syringe) 10 ml IV PRN PRN PRN Reason: LINE FLUSH Zinc Sulfate (Zinc Sulfate 220 Mg Cap) 220 mg PO BID [facility] Review of Systems ROS unobtainable: due to endotracheal tube, due to mental status Physical Examination Vital signs: Vital Signs Pulse Resp Pulse Ox 95 H 17 100 08/19/21 04:57 08/19/21 04:57 08/19/21 04:57 General appearance: no acute distress, other (orally intubated ETT at 23cm size 7.5) Eyes: non-icteric ENT: oropharynx moist Neck: supple, no lymphadenopathy, other (RIJ CVL) Effort: normal Ascultation: Bilateral: diminished breath sounds, rhonchi Cardiovascular: regular rate and rhythm, other Integumentary: normal Extremities: no cyanosis, no edema, cool pupils equal and round, unable to assess, other (unresponsive) other Results - Laboratory Findings CBC and BMP: 08/24/21 04:00 08/24/21 04:00 ABG ABG pH 7.499 pH Units (7.350-7.450) H 08/19/21 Unknown ABG pCO2 36.3 mm Hg 08/19/21 Unknown ABG pO2 239.2 mm Hg (80.0-90.0) H 08/19/21 Unknown ABG O2 Saturation 99.4 % (95.0-99.0) H 08/19/21 Unknown PT/INR, D-dimer PT 15.6 Sec. (12.2-14.9) H 08/19/21 04:53 INR 1.12 (0.87-1.13) 08/19/21 04:53 Abnormal lab findings: Abnormal Labs 08/19/21 08/19/21 08/19/21 04:53 04:53 04:53 WBC 13.0 H RBC 3.03 L Hgb 9.1 L Hct 28.8 L RDW 20.5 H Seg Neuts % (Manual) 96.0 H Lymphocytes % (Manual) 1.0 L Seg Neutrophils # Man 12.5 H Lymphocytes # (Manual) 0.1 L PT 15.6 H ABG pH ABG pO2 ABG HCO3 ABG O2 Saturation ABG Base Excess ABG Hemoglobin Sodium 132 L D Chloride 96.8 L Creatinine 3.6 H Glucose 599 H* POC Glucose Lactic Acid Calcium 6.6 L D Magnesium 1.50 L ALT 6 L Ammonia Troponin T 0.042 H NT-Pro-B Natriuret Pep Total Protein 5.4 L Albumin 2.4 L TSH Coronavirus (PCR) 08/19/21 08/19/21 08/19/21 04:53 04:53 06:01 WBC RBC Hgb Hct RDW Seg Neuts % (Manual) Lymphocytes % (Manual) Seg Neutrophils # Man Lymphocytes # (Manual) PT ABG pH ABG pO2 ABG HCO3 ABG O2 Saturation ABG Base Excess ABG Hemoglobin Sodium Chloride Creatinine Glucose POC Glucose Lactic Acid 2.10 H* Calcium Magnesium ALT Ammonia 10.0 L Troponin T NT-Pro-B Natriuret Pep 46713 H Total Protein Albumin TSH Coronavirus (PCR) 08/19/21 08/19/21 08/19/21 07:54 08:30 08:30 WBC RBC Hgb Hct RDW Seg Neuts % (Manual) Lymphocytes % (Manual) Seg Neutrophils # Man Lymphocytes # (Manual) PT ABG pH ABG pO2 ABG HCO3 ABG O2 Saturation ABG Base Excess ABG Hemoglobin Sodium Chloride Creatinine Glucose POC Glucose < 10 L Lactic Acid 3.20 H* Calcium Magnesium ALT Ammonia Troponin T NT-Pro-B Natriuret Pep Total Protein Albumin TSH 4.850 H Coronavirus (PCR) 08/19/21 08/19/21 08/19/21 08:37 09:43 10:07 WBC RBC Hgb Hct RDW Seg Neuts % (Manual) Lymphocytes % (Manual) Seg Neutrophils # Man Lymphocytes # (Manual) PT ABG pH ABG pO2 ABG HCO3 ABG O2 Saturation ABG Base Excess ABG Hemoglobin Sodium Chloride Creatinine Glucose POC Glucose 115 H < 10 L 109 H Lactic Acid Calcium Magnesium ALT Ammonia Troponin T NT-Pro-B Natriuret Pep Total Protein Albumin TSH Coronavirus (PCR) 08/19/21 08/19/21 08/19/21 11:05 11:49 14:03 WBC RBC Hgb Hct RDW Seg Neuts % (Manual) Lymphocytes % (Manual) Seg Neutrophils # Man Lymphocytes # (Manual) PT ABG pH ABG pO2 ABG HCO3 ABG O2 Saturation ABG Base Excess ABG Hemoglobin Sodium Chloride Creatinine Glucose POC Glucose 32 L 164 H 51 L Lactic Acid Calcium Magnesium ALT Ammonia Troponin T NT-Pro-B Natriuret Pep Total Protein Albumin TSH Coronavirus (PCR) 08/19/21 08/19/21 08/19/21 16:57 Unknown Unknown WBC RBC Hgb Hct RDW Seg Neuts % (Manual) Lymphocytes % (Manual) Seg Neutrophils # Man Lymphocytes # (Manual) PT ABG pH 7.499 H ABG pO2 239.2 H ABG HCO3 27.6 H ABG O2 Saturation 99.4 H ABG Base Excess 4.3 H ABG Hemoglobin 11.3 L Sodium Chloride Creatinine Glucose POC Glucose 57 L Lactic Acid Calcium Magnesium ALT Ammonia Troponin T NT-Pro-B Natriuret Pep Total Protein Albumin TSH Coronavirus (PCR) Positive A - Diagnostic Findings Chest x-ray: image reviewed Assessment and Plan Acute Hypoxemic Respiratory Failure on MVS -Sepsis -Recurrent hypoglycemic events -h/o COVID Pneumonia -Possible Aspiration -Leukocytosis -Acute Metabolic Encephalopathy -Hypomagnesemia -End-stage renal disease -Congestive heart failure with preserved EF chronic -Stop Fentanyl and hold off any further continuous infusions that may affect her mental status -wean vasopressors if to keep > 65 mmHg. -Hold anti-hypertensives for now, continue to monitor hemodynamics -titrate supplemental oxygen SpO2 keep 89-92% -continue Daily SAT and SBT assessment , readiness to wean daily -VAP bundle addressed, aspiration HOB>30 -continue lung protective strategies -continue bronchodilators with pulmonary hygiene per RT -wean per pulmonary driven protocols otherwise -continue accuchecks q1h for now; D10 infusion;avoid hypoglycemia -place OGT and confirm position, start tube feeding -avoid nephrotoxins, renally dose all medications -Supportive HD and UF. Renal following -Follow cultures, continue antibiotics, de-escalate based on culture data and clinical response -Trend temperature curve and WCC -Stress ulcer and VTE prophylaxis (Famotidine and Heparin) -continue mobility, off loading, and frequent turning per facility protocol to prevent pressure ulcers -continue other care per attending / other consultants COVID SPECIFIC INTERVENTIONS - COVID-19 PCR positive -Airborne and contact isolation per facility protocol Hospital medicine service is having ongoing goals of care discussions with the family CONDITION: CRITICAL PROGNOSIS: GUARDED CODE STATUS: FULL CODE The high probability of a clinically significant, sudden or life-threatening deterioration of the [respiratory, endocrine, neurology, renal ] system(s) required my full and direct attention, intervention and personal management. The aggregate critical care time was [35] minutes without overlap. Time includes spent on; [x] Data Review and interpretation [x] Patient assessment and monitoring of vital signs [x] Documentation [x] Medication orders and management
--- NOTE | 2021-08-19 18:56 | XRay Report ---
ABDOMEN 1 VIEW(S) INDICATION / CLINICAL INFORMATION: dobhoff placement. COMPARISON: None available. FINDINGS: TUBES / LINES: Feeding tube tip is in the proximal stomach. BOWEL GAS PATTERN: No significant abnormality. FREE AIR / EXTRALUMINAL GAS: None seen. ADDITIONAL FINDINGS: No significant additional findings. IMPRESSION: 1. Feeding tube tip is in the proximal stomach. Signer Name: Sharad Matias MD Signed: 08/19/2021 6:51 PM Workstation Name: [id number]
[2021-08-19] MEDS: ZINC SULFATE 220 MG CAP PO SCH ×2 (19:01→21:50)
[2021-08-19] MEDS ORDERED: GLUCAGON (HUMAN RECOMBINANT) 1 MG/ML INJ IM ONE (20:00)
[2021-08-19] MEDS: BUDESONIDE 0.5 MG/2 ML NEBU IH SCH (20:32)
[2021-08-19] MEDS ORDERED: MIRTAZAPINE 15 MG TAB PO SCH (22:00)
[2021-08-20] MEDS: DEXTROSE 10% *Hypoglycemia IV PRN ×9 (00:40→11:28)
[2021-08-20] MEDS: DEXTROSE 10% IN WATER 1,000 ML IV SCH (00:48)
[2021-08-20] MEDS ORDERED: DEXTROSE 10% IN WATER 1,000 ML IV SCH ×2 (01:00→11:00)
[2021-08-20] MEDS: IPRATROPIUM/ALBUTEROL SULFATE 3 ML AMPUL.NEB IH SCH ×4 (04:29→20:43)
[2021-08-20 04:58] LABS: Albumin 2.6 g/dL (3.9-5); Calcium 7.1 mg/dL (8.4-10.2)
[2021-08-20 05:02] LABS: Basophils # (Auto) 0.1 K/mm3 (0.0-0.1); Basophils % (Auto) 0.4 % (0.0-1.8); Eosinophils # (Auto) 0.4 K/mm3 (0.0-0.4); Eosinophils % (Auto) 2.8 % (0.0-4.3); Hematocrit 35.8 % (30.3-42.9); Hemoglobin 11.3 gm/dl (10.1-14.3); Lymphocytes # (Auto) 1.4 K/mm3 (1.2-5.4); Lymphocytes % (Auto) 9.9 % (13.4-35.0); Mean Corpuscular HGB Conc 32 % (30-34); Mean Corpuscular Volume 96 fl (79-97); Monocytes # (Auto) 0.7 K/mm3 (0.0-0.8); Monocytes % (Auto) 4.5 % (0.0-7.3); Red Blood Count 3.74 M/mm3 (3.65-5.03); Red Cell Distribution Width 20.7 % (13.2-15.2)
[2021-08-20 05:03] LABS: Platelet Count 269 K/mm3 (140-440)
[2021-08-20] MEDS: INSULIN LISPRO 100 UNIT/ML SUB-Q SCH ×4 (05:21→17:56)
[2021-08-20] MEDS: HEPARIN 5,000 UNIT/1 ML VIAL SUB-Q SCH ×3 (05:54→21:56)
[2021-08-20] MEDS: ZINC SULFATE 220 MG CAP PO SCH ×2 (09:21→21:56)
[2021-08-20] MEDS: CHOLECALCIFEROL (VIT D3) 1000 UNIT (25 mcg) TAB PO SCH (09:21)
[2021-08-20] MEDS: GABAPENTIN 300 MG CAP PO SCH ×2 (09:21→21:56)
[2021-08-20] MEDS: FAMOTIDINE 20 MG TAB PO SCH (09:21)
[2021-08-20] MEDS ORDERED: MIRTAZAPINE 15 MG TAB PO PRN (10:02)
--- NOTE | 2021-08-20 10:06 | Progress Note ---
<JUAN JOSÉ MCLAUGHLIN - Last Filed: 08/20/21 13:30> Assessment and Plan Assessment and plan: This is a 86-year-old female with known past medical history of DM, ESRD on HD, HTN, who was recent hospitalized for COVID pneumonia admitted this time with severe hypoglycemia and acute hypoxemic respiratory failure requiring ventilat ory support. Hospital Course to Date: 08/20: Off sedation this am, open eyes spontaneously but does not follow any commands. Patient remains hypoglycemic throught the night despite D10W gtt and TF at goal. TF is now on hold this am due to vomiting. Reglan was initiated Q8h rs, X1 dose of IV steroids, and continue D10w and Q1hr BG check for now. Midodrine was also added TID for hypotension. Possible PST today once more awake, plan to start weaning vent for possible extubation. Assessment and Plan #Acute Hypoxemic Respiratory Failure #COVID Pneumonia #Possible Aspiration - Presented unresponsive, patient was intubated in the ED for airway proctection - Patient was recently treated for COVID with IV steroids - COVID PCR is still positive - This am vent setting: PRVC-50%,6,18,300 - AM ABG noted - CCM consulted, appreciate recommendations - Continue IV ABx per ID and Nebs per CCM - VAP bundle addressed - Aspiration precaution HOB above 30 - Daily SBT and SAT trials as tolerated - Daily ABG and CXR - Continue SPO2 monitoring for SPO2 goal above 92% #Sepsis #Leukocytosis #COVID Pneumonia #Possible Aspiration - Recent treated for COVID pneumonia with IV steroids - Patient was not a candidate for Remdesevir due to ESRD - Imaging still with persistent bilateral lungs opacities with minimal change f rom last admit - Repeat COVID PCR is positive - Sputum and blood culture is pending - ID is on consult - Continue empiric IV Abx for now per ID - Continue to F/U on B.cult - Daily CBC monitor #Hypotension #Congestive heart failure with preserved EF- Chronic #NSTEMI - SBP in the 80, with MAP in the 50s this am - Antihypertensive agents are on hold - Midodrine added TID - Continue blood pressure monitor per protocol - Patient also presented with elevated BNP and elevated troponin - Cardiology on consult, appreciated recommendations - 2D Echo pending - ST noted on the monitor this am #Severe Hypoglycemia - Reported patient was with poor appetite at home and receiving oral diabetic agents - BG remains labile despite mutliple interventions - On D10w gtt and enteral nutrition - TF on hold for now due vomiting - X1 dose of IV steroids - Continue BG check Q1hr - Continue hypoglycemic protocol - Avoid Hypoglycemia #Acute Metabolic Encephalopathy - Most likely related to severe hypoglycemia - CT head noted with no acute findings- remote lacunar infarct, generalized atrophy, and microvascular ischemia - Off sedation this am - Hold all sedative agents for now - PRN analgesia for CPOT greater than 3 - Avoid benzo to prevent delirium - Maintenance of sleep-wake cycle #End-Stage Renal Disease(ESRD) on HD - Nephrology on consult, appreciated recommendation - Patient did not tolerated HD overnight due to low BP - Midodrine added TID - Continue HD per Nephro - Strict intake and output; Patient is anuric - Avoid nephrotoxic medications; Renally dose medications - Monitor and replace electrolytes as needed - Trend BMP #Nausea/Vomiting #Severe protein calorie malnutrition - Enteral Nutrition initiated - TF held this am due to vomiting - Gastric bubble noted form yesterday's CXR/KUB - Reglan initiated [id number] - BR added - Continue PPI- Pepcid - Nutrition on consult for TF management #GI/DVT Prophylaxis - PPI- Pepcid - Continue AC- Hep SubQ - SCDs to bilateral lower extremities while in bed The high probability of a clinically significant, sudden or life threatening deterioration of the [multiple] system(s) required my full and direct attention, intervention and personal management. The aggregate critical care time was [60] minutes. This time is in addition to time spent performing reported procedures but includes the following: [x] Data Review and interpretation [x] Patient assessment and monitoring of vital signs [x] Documentation [x] Medication orders and management Disposition Plan: ICU Total Time Spent with Patient (Minutes): 60 History Interval history: Patient seen and examined at the bedside. Intubated, no longer on sedation. Open eyes spontaneously but does not follow commands. Patient remains hypoglycemic throughout the night, despites TF and D10 gtt. Per RN patient also vomited this am, TF are on hold for now. HD was aborted overnight due to low BP, patient remains hypotensive this am Hospitalist Physical - Constitutional Vitals: Temp Pulse Resp BP Pulse Ox 98.9 F 99 H 18 89/31 100 08/20/21 07:49 08/20/21 09:45 08/20/21 09:45 08/20/21 09:45 08/20/21 09:45 General appearance: Present: no acute distress, other (Intubated) - EENT Eyes: Present: PERRL - Respiratory Respiratory effort: normal Respiratory: bilateral: rhonchi - Cardiovascular Rhythm: regular Heart Sounds: Present: S1 & S2 - Extremities Extremities: no ischemia, pulses intact, pulses symmetrical Extremity abnormal: edema - Peripheral Assessment Generalized Edema Type: Pitting Edema Degree: 2+ Capillary Refill: < 3 seconds Skin Temperature: Warm Peripheral Pulses: within normal limits - Abdominal General gastrointestinal: soft, non-distended, normal bowel sounds - Integumentary Integumentary: Present: warm, dry - Psychiatric Psychiatric: other (Intubated, unresponsive) - Neurologic Neurologic: other (Intubated, unresponsive) - Allied Health Allied health notes reviewed: nursing HEART Score - HEART Score Troponin: Troponin T 0.042 ng/mL (0.00-0.029) H 08/19/21 04:53 Results - Labs CBC & Chem 7: 08/20/21 04:15 08/20/21 04:15 Labs: Laboratory Last Values WBC 14.6 K/mm3 (4.5-11.0) H 08/20/21 04:15 RBC 3.74 M/mm3 (3.65-5.03) 08/20/21 04:15 Hgb 11.3 gm/dl (10.1-14.3) 08/20/21 04:15 Hct 35.8 % (30.3-42.9) D 08/20/21 04:15 MCV 96 fl (79-97) 08/20/21 04:15 MCH 30 pg (28-32) 08/20/21 04:15 MCHC 32 % (30-34) 08/20/21 04:15 RDW 20.7 % (13.2-15.2) H 08/20/21 04:15 Plt Count 269 K/mm3 (140-440) 08/20/21 04:15 Lymph % (Auto) 9.9 % (13.4-35.0) L 08/20/21 04:15 Holt % (Auto) 4.5 % (0.0-7.3) 08/20/21 04:15 Eos % (Auto) 2.8 % (0.0-4.3) 08/20/21 04:15 Baso % (Auto) 0.4 % (0.0-1.8) 08/20/21 04:15 Lymph # (Auto) 1.4 K/mm3 (1.2-5.4) 08/20/21 04:15 Holt # (Auto) 0.7 K/mm3 (0.0-0.8) 08/20/21 04:15 Eos # (Auto) 0.4 K/mm3 (0.0-0.4) 08/20/21 04:15 Baso # (Auto) 0.1 K/mm3 (0.0-0.1) 08/20/21 04:15 Add Manual Diff Complete 08/19/21 04:53 Total Counted 100 08/19/21 04:53 Seg Neutrophils % 82.4 % (40.0-70.0) H 08/20/21 04:15 Seg Neuts % (Manual) 96.0 % (40.0-70.0) H 08/19/21 04:53 Band Neutrophils % 1.0 % 08/19/21 04:53 Lymphocytes % (Manual) 1.0 % (13.4-35.0) L 08/19/21 04:53 Reactive Lymphs % (Man) 0 % 08/19/21 04:53 Monocytes % (Manual) 2.0 % (0.0-7.3) 08/19/21 04:53 Eosinophils % (Manual) 0 % (0.0-4.3) 08/19/21 04:53 Basophils % (Manual) 0 % (0.0-1.8) 08/19/21 04:53 Metamyelocytes % 0 % 08/19/21 04:53 Myelocytes % 0 % 08/19/21 04:53 Promyelocytes % 0 % 08/19/21 04:53 Blast Cells % 0 % 08/19/21 04:53 Nucleated RBC % Not Reportable 08/19/21 04:53 Seg Neutrophils # 12.0 K/mm3 (1.8-7.7) H 08/20/21 04:15 Seg Neutrophils # Man 12.5 K/mm3 (1.8-7.7) H 08/19/21 04:53 Band Neutrophils # 0.1 K/mm3 08/19/21 04:53 Lymphocytes # (Manual) 0.1 K/mm3 (1.2-5.4) L 08/19/21 04:53 Abs React Lymphs (Man) 0.0 K/mm3 08/19/21 04:53 Monocytes # (Manual) 0.3 K/mm3 (0.0-0.8) 08/19/21 04:53 Eosinophils # (Manual) 0.0 K/mm3 (0.0-0.4) 08/19/21 04:53 Basophils # (Manual) 0.0 K/mm3 (0.0-0.1) 08/19/21 04:53 Metamyelocytes # 0.0 K/mm3 08/19/21 04:53 Myelocytes # 0.0 K/mm3 08/19/21 04:53 Promyelocytes # 0.0 K/mm3 08/19/21 04:53 Blast Cells # 0.0 K/mm3 08/19/21 04:53 WBC Morphology Not Reportable 08/19/21 04:53 Hypersegmented Neuts Not Reportable 08/19/21 04:53 Hyposegmented Neuts Not Reportable 08/19/21 04:53 Hypogranular Neuts Not Reportable 08/19/21 04:53 Smudge Cells Not Reportable 08/19/21 04:53 Toxic Granulation Not Reportable 08/19/21 04:53 Toxic Vacuolation Not Reportable 08/19/21 04:53 Dohle Bodies Not Reportable 08/19/21 04:53 Pelger-Huet Anomaly Not Reportable 08/19/21 04:53 Dhara Rods Not Reportable 08/19/21 04:53 Platelet Estimate Consistent w auto 08/19/21 04:53 Clumped Platelets Not Reportable 08/19/21 04:53 Plt Clumps, EDTA Not Reportable 08/19/21 04:53 Large Platelets Not Reportable 08/19/21 04:53 Giant Platelets Not Reportable 08/19/21 04:53 Platelet Satelliting Not Reportable 08/19/21 04:53 Plt Morphology Comment Not Reportable 08/19/21 04:53 RBC Morphology Not Reportable 08/19/21 04:53 Dimorphic RBCs Not Reportable 08/19/21 04:53 Polychromasia Not Reportable 08/19/21 04:53 Hypochromasia Not Reportable 08/19/21 04:53 Poikilocytosis Not Reportable 08/19/21 04:53 Anisocytosis 1+ 08/19/21 04:53 Microcytosis Not Reportable 08/19/21 04:53 Macrocytosis Not Reportable 08/19/21 04:53 Spherocytes Not Reportable 08/19/21 04:53 Pappenheimer Bodies Not Reportable 08/19/21 04:53 Sickle Cells Not Reportable 08/19/21 04:53 Target Cells Not Reportable 08/19/21 04:53 Tear Drop Cells Not Reportable 08/19/21 04:53 Ovalocytes Not Reportable 08/19/21 04:53 Helmet Cells Not Reportable 08/19/21 04:53 Leyva-Helemano Bodies Not Reportable 08/19/21 04:53 [place] Rings Not Reportable 08/19/21 04:53 Korina Cells Not Reportable 08/19/21 04:53 Bite Cells Not Reportable 08/19/21 04:53 Crenated Cell Not Reportable 08/19/21 04:53 Elliptocytes Few 08/19/21 04:53 Acanthocytes (Spur) Not Reportable 08/19/21 04:53 Rouleaux Not Reportable 08/19/21 04:53 Hemoglobin C Crystals Not Reportable 08/19/21 04:53 Schistocytes Not Reportable 08/19/21 04:53 Malaria parasites Not Reportable 08/19/21 04:53 Keshav Bodies Not Reportable 08/19/21 04:53 Hem Pathologist Commnt No 08/19/21 04:53 PT 15.6 Sec. (12.2-14.9) H 08/19/21 04:53 INR 1.12 (0.87-1.13) 08/19/21 04:53 APTT 30.3 Sec. (24.2-36.6) 08/19/21 04:53 ABG pH 7.499 pH Units (7.350-7.450) H 08/19/21 Unknown ABG pCO2 36.3 mm Hg 08/19/21 Unknown ABG pO2 239.2 mm Hg (80.0-90.0) H 08/19/21 Unknown ABG HCO3 27.6 mmol/L (20.0-26.0) H 08/19/21 Unknown ABG O2 Saturation 99.4 % (95.0-99.0) H 08/19/21 Unknown ABG O2 Content 16.1 (0.0-44) 08/19/21 Unknown ABG Base Excess 4.3 mmol/L (-2.0-3.0) H 08/19/21 Unknown ABG Hemoglobin 11.3 gm/dl (12.0-16.0) L 08/19/21 Unknown ABG Carboxyhemoglobin 1.1 % (0.0-5.0) 08/19/21 Unknown ABG Methemoglobin 0.5 % (0.0-1.5) 08/19/21 Unknown Oxyhemoglobin 97.8 % (95.0-99.0) 08/19/21 Unknown FiO2 100 % 08/19/21 Unknown Sodium 132 mmol/L (137-145) L 08/20/21 04:15 Potassium 4.0 mmol/L (3.6-5.0) 08/20/21 04:15 Chloride 93.8 mmol/L (98-107) L 08/20/21 04:15 Carbon Dioxide 29 mmol/L (22-30) 08/20/21 04:15 Anion Gap 13 mmol/L 08/20/21 04:15 BUN 10 mg/dL (7-17) 08/20/21 04:15 Creatinine 2.7 mg/dL (0.6-1.2) H 08/20/21 04:15 Estimated GFR 17 ml/min 08/20/21 04:15 BUN/Creatinine Ratio 4 % 08/20/21 04:15 Glucose 52 mg/dL (65-100) L 08/20/21 04:15 POC Glucose 73 mg/dL (70-105) 08/20/21 09:30 Lactic Acid 3.40 mmol/L (0.7-2.0) H* 08/20/21 04:15 Calcium 7.1 mg/dL (8.4-10.2) L 08/20/21 04:15 Magnesium 1.50 mg/dL (1.7-2.3) L 08/19/21 04:53 Total Bilirubin 0.30 mg/dL (0.1-1.2) 08/20/21 04:15 AST 17 units/L (5-40) 08/20/21 04:15 ALT 7 units/L (7-56) 08/20/21 04:15 Alkaline Phosphatase 85 units/L (35-129) 08/20/21 04:15 Ammonia 10.0 umol/L (25-60) L 08/19/21 04:53 Total Creatine Kinase 105 units/L (30-135) 08/19/21 04:53 CK-MB (CK-2) 1.1 ng/mL (0.0-4.0) 08/19/21 04:53 CK-MB (CK-2) Rel Index 1.0 (0-4) 08/19/21 04:53 Troponin T 0.042 ng/mL (0.00-0.029) H 08/19/21 04:53 NT-Pro-B Natriuret Pep 14764 pg/mL (0-900) H 08/19/21 06:01 Total Protein 4.9 g/dL (6.3-8.2) L 08/20/21 04:15 Albumin 2.6 g/dL (3.9-5) L 08/20/21 04:15 Albumin/Globulin Ratio 1.1 % 08/20/21 04:15 Triglycerides 122 mg/dL (2-149) 08/19/21 04:53 Cholesterol 160 mg/dL (50-199) 08/19/21 04:53 LDL Cholesterol Direct 88 mg/dL (50-130) 08/19/21 04:53 HDL Cholesterol 47 mg/dL (40-59) 08/19/21 04:53 Cholesterol/HDL Ratio 3.40 % 08/19/21 04:53 TSH 4.850 mlU/mL (0.270-4.200) H 08/19/21 08:30 Coronavirus (PCR) Positive (Negative) A 08/19/21 Unknown Microbiology: Microbiology 08/19/21 06:01 Peripheral/Venous Blood Culture - Preliminary NO GROWTH AFTER 24 HOURS 08/19/21 06:01 Peripheral/Venous Blood Culture - Preliminary NO GROWTH AFTER 24 HOURS 08/19/21 05:55 Tracheal Aspirate Sputum Culture - Preliminary Active Medications - Current Medications Current Medications: Generic Name Dose Route Start Last Admin Trade Name Freq PRN Reason Stop Dose Admin Acetaminophen 650 mg 08/19/21 10:00 Acetaminophen 325 Mg Tab PO Q6H PRN Pain MILD(1-3)/Fever >100.5/MEHTA Albuterol 2.5 mg 08/19/21 11:00 Albuterol 2.5 Mg/3 Ml Nebu IH Q3HRT PRN Shortness Of Breath Albuterol/Ipratropium 1 ampul 08/19/21 14:00 08/20/21 04:29 Ipratropium/Albuterol Sulfate 3 Ml Ampul.Neb IH Not Given Q6HRT ANAHY Budesonide 0.5 mg 08/19/21 20:00 08/19/21 20:32 Budesonide 0.5 Mg/2 Ml Nebu IH Not Given Q12HRT ANAHY Cholecalciferol 1,000 unit 08/19/21 10:00 08/20/21 09:21 Cholecalciferol (Vit D3) 1000 Unit (25 Mcg) Tab PO 1,000 unit QDAY ANAHY Administration Dextrose 0 ml 08/19/21 09:30 08/20/21 09:31 Dextrose 10% *Hypoglycemia IV 50 ml PRN PRN Administration Hypoglycemia Famotidine 20 mg 08/19/21 10:00 08/20/21 09:21 Famotidine 20 Mg Tab PO 20 mg QAM ANAHY Administration Fentanyl 50 mcg 08/20/21 10:03 Fentanyl 100 Mcg/2 Ml Inj IV Q2HR PRN For CPOT greater than 3 Gabapentin 300 mg 08/19/21 10:00 08/20/21 09:21 Gabapentin 300 Mg Cap PO 300 mg BID ANAHY Administration Heparin Sodium (Porcine) 5,000 unit 08/19/21 11:00 08/20/21 05:54 Heparin 5,000 Unit/1 Ml Vial SUB-Q 5,000 unit Q8HR ANAHY Administration Sodium Chloride 100 mls @ 999 mls/hr 08/19/21 11:14 Nacl 0.9% IV LEVI PRN Hypotension Cefepime HCl 1 gm in 100 mls @ 200 mls/hr 08/19/21 18:00 08/19/21 17:39 Cefepime/Ns 1 Gm/100 Ml IV 200 mls/hr QPM ANAHY Administration Protocol Dextrose 1,000 mls @ 50 mls/hr 08/20/21 10:01 D10w IV DIRECT ANAHY Insulin Human Lispro 0 unit 08/19/21 12:00 08/20/21 05:21 Insulin Lispro 100 Unit/Ml SUB-Q Not Given Q6HR [facility] Protocol Methylprednisolone Sodium Succinate 125 mg 08/20/21 10:33 Methylprednisolone Sod Succinate 125 Mg/2 Ml Inj IV 08/20/21 10:34 ONCE ONE Midodrine 10 mg 08/20/21 12:00 Midodrine 5 Mg Tab PO TID@0800,1200,1600 ANAHY Mirtazapine 15 mg 08/20/21 10:02 Mirtazapine 15 Mg Tab PO QHS PRN Sleep Naloxone HCl 0.1 mg 08/19/21 09:30 Naloxone 0.4 Mg/1 Ml Inj IV Q2MIN PRN Res Rate </= 8 or 02 SAT < 92% Senna 17.6 mg 08/20/21 22:00 Sennosides Oral Liqd 8.8 Mg/5 Ml Oral Liqd PO QHS ANAHY Simple Syrup 30 ml 08/19/21 17:44 08/20/21 03:48 Simple Syrup 15 Ml FEEDTUBE 30 ml PRN PRN Administration Hypoglycemia Sodium Chloride 10 ml 08/19/21 10:00 08/20/21 09:23 Sodium Chloride 0.9% 10 Ml Flush Syringe IV 10 ml BID ANAHY Administration Sodium Chloride 10 ml 08/19/21 09:30 Sodium Chloride 0.9% 10 Ml Flush Syringe IV PRN PRN LINE FLUSH Zinc Sulfate 220 mg 08/19/21 11:00 08/20/21 09:21 Zinc Sulfate 220 Mg Cap PO 220 mg BID ANAHY Administration Nutrition/Malnutrition Assess - Dietary Evaluation Nutrition/Malnutrition Findings: Nutrition Notes Start: 08/19/21 14:18 Freq: Status: Active Protocol: Document 08/19/21 14:18 MIGUEL ANGEL (Rec: 08/19/21 14:35 MIGUEL ANGEL [id number]) Nutrition Notes Need for Assessment generated from: MD Order Initial or Follow up Assessment Current Diagnosis CKD (stage V CKD),Diabetes, Hypertension,Respiratory Failure,Hyperlipidemia Other Pertinent Diagnosis ESRD+HD, Metabolic Encephalopathy. Current Diet NPO. TF-Nepro w/CARBSTEADY @ 28 ml/hr (from D 08/19). Labs/Tests 08/19: Na 132, Cl 96.8, Crea 3 .6, Glu 599. Pertinent Medications 08/19: Vit D3, ZnSO4, others nutritionally unremarkable. 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 Pt on Mechanical Ventilation. Pt seems to present COVID-19 sequels. Percent of energy/protein needs met: Prescribed TF-Nepro w/ CARBSTEADY @ 28 ml/hr provides for energy/protein needs (1, 197 Kcal/54 g) during LOS, 100 % Kcal; 86% AA. Burn Absent Trauma Absent GI Symptoms None Food Allergy No Skin Integrity/Comment Sacral pressure wound stage I Current % PO Other Minimum of two criteria No #1 Nutrition Diagnosis Inadequate oral intake Etiology Pt on Mechanical Ventilation As Evidenced by Signs and Symptoms Pt on NPO. Is patient on ventilator? Yes Is Patient Ambulatory and/or Out of Bed No REE-([facility]-confined to bed) 1389.180 Kcal/Kg value to use for calculation 16 Approximate Energy Requirements Using 1197 kcal/Kg Calculation Used for Recommendations Kcal/kg Additional Notes Protein: 1-1.2 g/Kg; 63-76 g/ day. Fluids: 1 ml/Kcal, or as per MD. Nutrition Intervention Nutrition Support: Start Nepro w/CARBSTEADY @ 28 ml/hr. Flush: 100 ml water Q 4 hr, or as per MD. Kcal 1,197 Protein (gm) 54 Carbohydrates (gm) 107 Fat (gm) 64 Fluid (mL) 485 Fiber (gm) 8 % RDI: 100% Kcal; 86% AA. Goal #1 Provide at least 75% of energy /protein needs through Enteral Feeding during LOS. Goal #2 Maintain body weight within +/ -3% of admission body weight during LOS. Follow-Up By: 08/22/21 Additional Comments Continue monitoring TF tolerance and BM. <JENNIFER CARRILLO - Last Filed: 08/21/21 07:21> Assessment and Plan Assessment and plan: I saw and evaluated the patient. I agree with the findings and the plan of care as documented in the Nurse Practitioner's~note, with the following corrections and additions. Hospitalist Physical - Constitutional Vitals: Temp Pulse Resp BP Pulse Ox 99.6 F 83 19 109/39 100 08/21/21 03:35 08/21/21 06:00 08/21/21 06:18 08/21/21 06:00 08/21/21 06:18 HEART Score - HEART Score Troponin: Troponin T 0.042 ng/mL (0.00-0.029) H 08/19/21 04:53 Results - Labs CBC & Chem 7: 08/21/21 04:46 08/21/21 04:46 Labs: Laboratory Last Values WBC 23.9 K/mm3 (4.5-11.0) H 08/21/21 04:46 RBC 2.55 M/mm3 (3.65-5.03) L 08/21/21 04:46 Hgb 7.8 gm/dl (10.1-14.3) L D 08/21/21 04:46 Hct 23.6 % (30.3-42.9) L D 08/21/21 04:46 MCV 93 fl (79-97) 08/21/21 04:46 MCH 31 pg (28-32) 08/21/21 04:46 MCHC 33 % (30-34) 08/21/21 04:46 RDW 20.2 % (13.2-15.2) H 08/21/21 04:46 Plt Count 280 K/mm3 (140-440) 08/21/21 04:46 Lymph % (Auto) 9.9 % (13.4-35.0) L 08/20/21 04:15 Holt % (Auto) 4.5 % (0.0-7.3) 08/20/21 04:15 Eos % (Auto) 2.8 % (0.0-4.3) 08/20/21 04:15 Baso % (Auto) 0.4 % (0.0-1.8) 08/20/21 04:15 Lymph # (Auto) 1.4 K/mm3 (1.2-5.4) 08/20/21 04:15 Holt # (Auto) 0.7 K/mm3 (0.0-0.8) 08/20/21 04:15 Eos # (Auto) 0.4 K/mm3 (0.0-0.4) 08/20/21 04:15 Baso # (Auto) 0.1 K/mm3 (0.0-0.1) 08/20/21 04:15 Add Manual Diff Complete 08/19/21 04:53 Total Counted 100 08/19/21 04:53 Seg Neutrophils % Shift Leader 08/21/21 04:46 Seg Neuts % (Manual) 96.0 % (40.0-70.0) H 08/19/21 04:53 Band Neutrophils % 1.0 % 08/19/21 04:53 Lymphocytes % (Manual) 1.0 % (13.4-35.0) L 08/19/21 04:53 Reactive Lymphs % (Man) 0 % 08/19/21 04:53 Monocytes % (Manual) 2.0 % (0.0-7.3) 08/19/21 04:53 Eosinophils % (Manual) 0 % (0.0-4.3) 08/19/21 04:53 Basophils % (Manual) 0 % (0.0-1.8) 08/19/21 04:53 Metamyelocytes % 0 % 08/19/21 04:53 Myelocytes % 0 % 08/19/21 04:53 Promyelocytes % 0 % 08/19/21 04:53 Blast Cells % 0 % 08/19/21 04:53 Nucleated RBC % Not Reportable 08/19/21 04:53 Seg Neutrophils # 12.0 K/mm3 (1.8-7.7) H 08/20/21 04:15 Seg Neutrophils # Man 12.5 K/mm3 (1.8-7.7) H 08/19/21 04:53 Band Neutrophils # 0.1 K/mm3 08/19/21 04:53 Lymphocytes # (Manual) 0.1 K/mm3 (1.2-5.4) L 08/19/21 04:53 Abs React Lymphs (Man) 0.0 K/mm3 08/19/21 04:53 Monocytes # (Manual) 0.3 K/mm3 (0.0-0.8) 08/19/21 04:53 Eosinophils # (Manual) 0.0 K/mm3 (0.0-0.4) 08/19/21 04:53 Basophils # (Manual) 0.0 K/mm3 (0.0-0.1) 08/19/21 04:53 Metamyelocytes # 0.0 K/mm3 08/19/21 04:53 Myelocytes # 0.0 K/mm3 08/19/21 04:53 Promyelocytes # 0.0 K/mm3 08/19/21 04:53 Blast Cells # 0.0 K/mm3 08/19/21 04:53 WBC Morphology Not Reportable 08/19/21 04:53 Hypersegmented Neuts Not Reportable 08/19/21 04:53 Hyposegmented Neuts Not Reportable 08/19/21 04:53 Hypogranular Neuts Not Reportable 08/19/21 04:53 Smudge Cells Not Reportable 08/19/21 04:53 Toxic Granulation Not Reportable 08/19/21 04:53 Toxic Vacuolation Not Reportable 08/19/21 04:53 Dohle Bodies Not Reportable 08/19/21 04:53 Pelger-Huet Anomaly Not Reportable 08/19/21 04:53 Dhara Rods Not Reportable 08/19/21 04:53 Platelet Estimate Consistent w auto 08/19/21 04:53 Clumped Platelets Not Reportable 08/19/21 04:53 Plt Clumps, EDTA Not Reportable 08/19/21 04:53 Large Platelets Not Reportable 08/19/21 04:53 Giant Platelets Not Reportable 08/19/21 04:53 Platelet Satelliting Not Reportable 08/19/21 04:53 Plt Morphology Comment Not Reportable 08/19/21 04:53 RBC Morphology Not Reportable 08/19/21 04:53 Dimorphic RBCs Not Reportable 08/19/21 04:53 Polychromasia Not Reportable 08/19/21 04:53 Hypochromasia Not Reportable 08/19/21 04:53 Poikilocytosis Not Reportable 08/19/21 04:53 Anisocytosis 1+ 08/19/21 04:53 Microcytosis Not Reportable 08/19/21 04:53 Macrocytosis Not Reportable 08/19/21 04:53 Spherocytes Not Reportable 08/19/21 04:53 Pappenheimer Bodies Not Reportable 08/19/21 04:53 Sickle Cells Not Reportable 08/19/21 04:53 Target Cells Not Reportable 08/19/21 04:53 Tear Drop Cells Not Reportable 08/19/21 04:53 Ovalocytes Not Reportable 08/19/21 04:53 Helmet Cells Not Reportable 08/19/21 04:53 Leyva-Helemano Bodies Not Reportable 08/19/21 04:53 [place] Rings Not Reportable 08/19/21 04:53 [place] Cells Not Reportable 08/19/21 04:53 Bite Cells Not Reportable 08/19/21 04:53 Crenated Cell Not Reportable 08/19/21 04:53 Elliptocytes Few 08/19/21 04:53 Acanthocytes (Spur) Not Reportable 08/19/21 04:53 Rouleaux Not Reportable 08/19/21 04:53 Hemoglobin C Crystals Not Reportable 08/19/21 04:53 Schistocytes Not Reportable 08/19/21 04:53 Malaria parasites Not Reportable 08/19/21 04:53 Keshav Bodies Not Reportable 08/19/21 04:53 Hem Pathologist Commnt No 08/19/21 04:53 PT 15.6 Sec. (12.2-14.9) H 08/19/21 04:53 INR 1.12 (0.87-1.13) 08/19/21 04:53 APTT 30.3 Sec. (24.2-36.6) 08/19/21 04:53 ABG pH 7.526 pH Units (7.350-7.450) H 08/20/21 11:55 ABG pCO2 29.9 mm Hg 08/20/21 11:55 ABG pO2 166.8 mm Hg (80.0-90.0) H 08/20/21 11:55 ABG HCO3 24.2 mmol/L (20.0-26.0) 08/20/21 11:55 ABG O2 Saturation 99.1 % (95.0-99.0) H 08/20/21 11:55 ABG O2 Content 12.3 (0.0-44) 08/20/21 11:55 ABG Base Excess 1.8 mmol/L (-2.0-3.0) 08/20/21 11:55 ABG Hemoglobin 8.7 gm/dl (12.0-16.0) L 08/20/21 11:55 ABG Carboxyhemoglobin 1.3 % (0.0-5.0) 08/20/21 11:55 ABG Methemoglobin 0.6 % (0.0-1.5) 08/20/21 11:55 Oxyhemoglobin 97.3 % (95.0-99.0) 08/20/21 11:55 FiO2 50 % 08/20/21 11:55 Sodium 122 mmol/L (137-145) L D 08/21/21 04:46 Potassium 4.9 mmol/L (3.6-5.0) D 08/21/21 04:46 Chloride 87.0 mmol/L (98-107) L 08/21/21 04:46 Carbon Dioxide 23 mmol/L (22-30) 08/21/21 04:46 Anion Gap 17 mmol/L 08/21/21 04:46 BUN 23 mg/dL (7-17) H 08/21/21 04:46 Creatinine 3.8 mg/dL (0.6-1.2) H 08/21/21 04:46 Estimated GFR 11 ml/min 08/21/21 04:46 BUN/Creatinine Ratio 6 % 08/21/21 04:46 Glucose 166 mg/dL (65-100) H 08/21/21 04:46 POC Glucose 151 mg/dL (70-105) H 08/21/21 05:11 Lactic Acid 3.40 mmol/L (0.7-2.0) H* 08/20/21 04:15 Calcium 6.8 mg/dL (8.4-10.2) L 08/21/21 04:46 Phosphorus 1.60 mg/dL (2.5-4.5) L 08/21/21 04:46 Magnesium 1.60 mg/dL (1.7-2.3) L 08/21/21 04:46 Ferritin 1787.0 ng/mL (10.0-200.0) H 08/21/21 04:46 Total Bilirubin 0.30 mg/dL (0.1-1.2) 08/20/21 04:15 AST 17 units/L (5-40) 08/20/21 04:15 ALT 7 units/L (7-56) 08/20/21 04:15 Alkaline Phosphatase 85 units/L (35-129) 08/20/21 04:15 Ammonia 10.0 umol/L (25-60) L 08/19/21 04:53 Total Creatine Kinase 105 units/L (30-135) 08/19/21 04:53 CK-MB (CK-2) 1.1 ng/mL (0.0-4.0) 08/19/21 04:53 CK-MB (CK-2) Rel Index 1.0 (0-4) 08/19/21 04:53 Troponin T 0.042 ng/mL (0.00-0.029) H 08/19/21 04:53 C-Reactive Protein 10.60 mg/dL (0.00-1.30) H 08/21/21 04:46 NT-Pro-B Natriuret Pep 64864 pg/mL (0-900) H 08/19/21 06:01 Total Protein 4.9 g/dL (6.3-8.2) L 08/20/21 04:15 Albumin 2.6 g/dL (3.9-5) L 08/20/21 04:15 Albumin/Globulin Ratio 1.1 % 08/20/21 04:15 Triglycerides 122 mg/dL (2-149) 08/19/21 04:53 Cholesterol 160 mg/dL (50-199) 08/19/21 04:53 LDL Cholesterol Direct 88 mg/dL (50-130) 08/19/21 04:53 HDL Cholesterol 47 mg/dL (40-59) 08/19/21 04:53 Cholesterol/HDL Ratio 3.40 % 08/19/21 04:53 TSH 4.850 mlU/mL (0.270-4.200) H 08/19/21 08:30 Random Vancomycin 17.8 ug/mL (0-40.0) 08/21/21 04:46 Coronavirus (PCR) Positive (Negative) A 08/19/21 Unknown Microbiology: Microbiology 08/19/21 06:01 Peripheral/Venous Blood Culture - Preliminary NO GROWTH AFTER 48 HOURS 08/19/21 06:01 Peripheral/Venous Blood Culture - Preliminary NO GROWTH AFTER 48 HOURS 08/19/21 05:55 Tracheal Aspirate Sputum Culture - Preliminary Active Medications - Current Medications Current Medications: Generic Name Dose Route Start Last Admin Trade Name Freq PRN Reason Stop Dose Admin Acetaminophen 650 mg 08/19/21 10:00 Acetaminophen 325 Mg Tab PO Q6H PRN Pain MILD(1-3)/Fever >100.5/MEHTA Albuterol 2.5 mg 08/19/21 11:00 Albuterol 2.5 Mg/3 Ml Nebu IH Q3HRT PRN Shortness Of Breath Albuterol/Ipratropium 1 ampul 08/19/21 14:00 08/21/21 02:15 Ipratropium/Albuterol Sulfate 3 Ml Ampul.Neb IH 1 ampul Q6HRT ANAHY Administration Budesonide 0.5 mg 08/19/21 20:00 08/20/21 21:26 Budesonide 0.5 Mg/2 Ml Nebu IH 0.5 mg Q12HRT ANAHY Administration Cholecalciferol 1,000 unit 08/19/21 10:00 08/20/21 09:21 Cholecalciferol (Vit D3) 1000 Unit (25 Mcg) Tab PO 1,000 unit QDAY ANAHY Administration Dextrose 0 ml 08/19/21 09:30 08/20/21 11:28 Dextrose 10% *Hypoglycemia IV 50 ml PRN PRN Administration Hypoglycemia Famotidine 20 mg 08/19/21 10:00 08/20/21 09:21 Famotidine 20 Mg Tab PO 20 mg QAM ANAHY Administration Fentanyl 50 mcg 08/20/21 10:03 Fentanyl 100 Mcg/2 Ml Inj IV Q2HR PRN For CPOT greater than 3 Gabapentin 300 mg 08/19/21 10:00 08/20/21 21:56 Gabapentin 300 Mg Cap PO 300 mg BID ANAHY Administration Heparin Sodium (Porcine) 5,000 unit 08/19/21 11:00 08/21/21 06:01 Heparin 5,000 Unit/1 Ml Vial SUB-Q 5,000 unit Q8HR ANAHY Administration Sodium Chloride 100 mls @ 999 mls/hr 08/19/21 11:14 Nacl 0.9% IV LEVI PRN Hypotension Cefepime HCl 1 gm in 100 mls @ 200 mls/hr 08/19/21 18:00 08/20/21 17:55 Cefepime/Ns 1 Gm/100 Ml IV 200 mls/hr QPM ANAHY Administration Protocol Dextrose 1,000 mls @ 50 mls/hr 08/20/21 11:00 08/20/21 15:52 D10w IV 0 mls/hr DIRECT ANAHY Infusion Insulin Human Lispro 0 unit 08/19/21 12:00 08/21/21 06:00 Insulin Lispro 100 Unit/Ml SUB-Q Not Given Q6HR ANAHY Protocol Metoclopramide HCl 5 mg 08/20/21 12:00 08/21/21 04:13 Metoclopramide 10 Mg/2 Ml Inj IV 5 mg Q8H ANAHY Administration Midodrine 10 mg 08/20/21 12:00 08/20/21 15:48 Midodrine 5 Mg Tab PO 10 mg TID@0800,1200,1600 ANAHY Administration Mirtazapine 15 mg 08/20/21 10:02 Mirtazapine 15 Mg Tab PO QHS PRN Sleep Naloxone HCl 0.1 mg 08/19/21 09:30 Naloxone 0.4 Mg/1 Ml Inj IV Q2MIN PRN Res Rate </= 8 or 02 SAT < 92% Senna 17.6 mg 08/20/21 22:00 08/20/21 21:55 Sennosides Oral Liqd 8.8 Mg/5 Ml Oral Liqd PO 17.6 mg QHS ANAHY Administration Simple Syrup 30 ml 08/19/21 17:44 08/20/21 03:48 Simple Syrup 15 Ml FEEDTUBE 30 ml PRN PRN Administration Hypoglycemia Sodium Chloride 10 ml 08/19/21 10:00 08/20/21 21:57 Sodium Chloride 0.9% 10 Ml Flush Syringe IV 10 ml BID ANAHY Administration Sodium Chloride 10 ml 08/19/21 09:30 Sodium Chloride 0.9% 10 Ml Flush Syringe IV PRN PRN LINE FLUSH Zinc Sulfate 220 mg 08/19/21 11:00 08/20/21 21:56 Zinc Sulfate 220 Mg Cap PO 220 mg BID ANAHY Administration Nutrition/Malnutrition Assess - Dietary Evaluation Nutrition/Malnutrition Findings: Nutrition Notes Start: 08/19/21 1 4:18 Freq: Status: Active Protocol: Document 08/19/21 14:18 MIGUEL ANGEL (Rec: 08/19/21 14:35 MIGUEL ANGEL [id number]) Nutrition Notes Need for Assessment generated from: MD Order Initial or Follow up Assessment Current Diagnosis CKD (stage V CKD),Diabetes, Hypertension,Respiratory Failure,Hyperlipidemia Other Pertinent Diagnosis ESRD+HD, Metabolic Encephalopathy. Current Diet NPO. TF-Nepro w/CARBSTEADY @ 28 ml/hr (from D 08/19). Labs/Tests 08/19: Na 132, Cl 96.8, Crea 3 .6, Glu 599. Pertinent Medications 08/19: Vit D3, ZnSO4, others nutritionally unremarkable. 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 Pt on Mechanical Ventilation. Pt seems to present COVID-19 sequels. Percent of energy/protein needs met: Prescribed TF-Nepro w/ CARBSTEADY @ 28 ml/hr provides for energy/protein needs (1, 197 Kcal/54 g) during LOS, 100 % Kcal; 86% AA. Burn Absent Trauma Absent GI Symptoms None Food Allergy No Skin Integrity/Comment Sacral pressure wound stage I Current % PO Other Minimum of two criteria No #1 Nutrition Diagnosis Inadequate oral intake Etiology Pt on Mechanical Ventilation As Evidenced by Signs and Symptoms Pt on NPO. Is patient on ventilator? Yes Is Patient Ambulatory and/or Out of Bed No REE-([place]-confined to bed) 1389.180 Kcal/Kg value to use for calculation 16 Approximate Energy Requirements Using 1197 kcal/Kg Calculation Used for Recommendations Kcal/kg Additional Notes Protein: 1-1.2 g/Kg; 63-76 g/ day. Fluids: 1 ml/Kcal, or as per MD. Nutrition Intervention Nutrition Support: Start Nepro w/CARBSTEADY @ 28 ml/hr. Flush: 100 ml water Q 4 hr, or as per MD. Kcal 1,197 Protein (gm) 54 Carbohydrates (gm) 107 Fat (gm) 64 Fluid (mL) 485 Fiber (gm) 8 % RDI: 100% Kcal; 86% AA. Goal #1 Provide at least 75% of energy /protein needs through Enteral Feeding during LOS. Goal #2 Maintain body weight within +/ -3% of admission body weight during LOS. Follow-Up By: 08/22/21 Additional Comments Continue monitoring TF tolerance and BM.
--- NOTE | 2021-08-20 10:26 | Progress Note ---
Assessment and Plan Patient is an 86-year-old female with a past medical history of end-stage renal disease on hemodialysis, hypertension, diabetes, and recent COVID-19 infection who was brought to the ED today after the patient was found by family to be unresponsive Acute respiratory failure-pulmonology follow End-stage renal disease on hemodialysis-nephrology following Sepsis COVID-19-ID following NSTEMI type II Anemia Hypoglycemia Hypomagnesemia Echo 08/19/2021-EF 40 to 45%. Mild concentric LVH. Doppler flow pattern suggests impaired LV relaxation. Right ventricular systolic function is normal. Echo bright density suspected in the right atrium. Moderate aortic stenosis. Highest mean aortic valve gradient is 21.6 mmHg. Mild aortic regurgitation. Mitral valve leaflets are thickened. Mitral valve leaflets are calcified. Moderate mitral regurgitation Echo03/2020 -Moderate concentric left ventricular hypertrophy.Left ventricular ejection fraction is 60-65%. There is moderately increased filling pressure consistent with grade 2 diastolic dysfunction. Aortic valve is tricuspid, sclerotic and focally calcified. Mild aortic stenosis. Mild to moderate aortic valve insufficiency. The left ventricular size is small. The aortic valve max velocity is 2.57 m/s. The peak gradient is 26.4 mmHg with a mean gradient of 16.0 mmHg, the left ventricle outflow tract measures 2.00 cm. CORNELIA (VTI) is 1.08 cm. Mild mitral valve regurgitation.Normal right ventricular size and wall thickness. There is small pleural effusion in the left lateral region. There is small pleural effusion in the right lateral region.No pericardial effusion seen. Lexiscan MPI stress test 05/14/2019-normal myocardial perfusion without evidence of ischemia or prior infarction Plan: EKG shows sinus tachycardia [address] T abnormalities. No acute ischemic change. Troponins minimally elevated 0.04 Troponin elevation likely in setting of sepsis and hypoglycemia BNP noted to be elevated. However patient appears euvolemic on exam with no bilateral lower extremity edema and lungs sound clear BNP likely elevated in setting of end-stage renal disease Due to renal function will avoid nephrotoxic agents including JORDANA/ ARB Will defer volume management to nephrology Continue amlodipine 10 mg p.o. daily for hypertension Continue present management Patient seen in conjunction with Dr. Hernandez who agrees with this plan of care - Patient Problems (1) Acute encephalopathy Current Visit: Yes Status: Acute (2) COVID-19 Current Visit: Yes Status: Acute (3) Hypomagnesemia Current Visit: Yes Status: Acute (4) Malnutrition Current Visit: Yes Status: Acute (5) Acute metabolic encephalopathy due to hypoglycemia Current Visit: No Status: Acute (6) Acute respiratory failure with hypoxia Current Visit: No Status: Acute (7) Anemia in chronic illness Current Visit: No Status: Acute (8) ESRD (end stage renal disease) on dialysis Current Visit: No Status: Acute (9) Sepsis Current Visit: No Status: Acute Subjective Date of service: 08/20/21 Principal diagnosis: Hypoglycemia Interval history: Patient intubated and sedated Patient sinus on monitor with no events Objective Vital Signs Temp Pulse Resp BP Pulse Ox Pulse Ox Pulse Ox 08/20/21 09:45 99 H 18 89/31 100 08/20/21 09:30 99 H 16 89/31 100 08/20/21 09:15 100 H 13 80/28 100 08/20/21 09:00 103 H 18 80/28 100 08/20/21 08:45 105 H 10 L 95/41 100 08/20/21 08:31 109 H 11 L 112/47 100 08/20/21 08:15 103 H 11 L 112/47 100 08/20/21 08:00 103 H 18 112/47 100 08/20/21 07:49 98.9 F 08/20/21 07:45 102 H 17 114/47 100 08/20/21 07:30 102 H 18 119/32 100 08/20/21 07:15 101 H 11 L 137/35 100 08/20/21 07:00 105 H 18 88/43 100 08/20/21 06:45 104 H 18 123/45 100 08/20/21 06:30 101 H 15 123/45 100 08/20/21 06:15 101 H 18 114/42 100 08/20/21 06:00 101 H 18 103/45 100 08/20/21 05:45 103 H 19 103/45 100 08/20/21 05:30 103 H 18 103/41 100 08/20/21 05:16 105 H 150/57 100 08/20/21 05:15 106 H 13 150/57 100 08/20/21 05:01 114 H 15 138/66 100 08/20/21 04:45 114 H 18 97/46 100 08/20/21 04:30 114 H 18 106/50 100 08/20/21 04:15 115 H 18 112/34 100 08/20/21 04:00 111 H 15 119/38 100 08/20/21 03:57 100.7 F H 08/20/21 03:45 104 H 18 126/45 100 08/20/21 03:30 105 H 18 126/45 100 08/20/21 03:15 105 H 18 128/44 100 08/20/21 03:00 104 H 18 116/45 100 08/20/21 02:45 104 H 13 114/48 100 08/20/21 02:30 103 H 18 106/44 100 08/20/21 02:15 103 H 18 120/42 100 08/20/21 02:00 105 H 13 107/41 100 08/20/21 01:45 104 H 16 122/60 100 08/20/21 01:30 104 H 15 119/56 100 08/20/21 01:15 104 H 10 L 109/47 100 08/20/21 01:01 106 H 14 141/59 100 08/20/21 00:45 106 H 18 128/43 100 08/20/21 00:30 111 H 19 139/59 100 08/20/21 00:15 109 H 12 144/36 90 08/20/21 00:01 101 H 10 L 144/36 100 08/20/21 00:00 99 H 10 L 140/44 100 08/19/21 23:48 98.3 F 08/19/21 23:45 97 H 11 L 140/44 100 08/19/21 23:30 101 H 14 121/49 100 08/19/21 23:15 99 H 18 127/46 100 08/19/21 23:00 100 H 18 122/46 100 08/19/21 22:45 100 H 15 132/39 100 08/19/21 22:30 101 H 13 127/46 100 08/19/21 22:15 102 H 16 158/44 100 08/19/21 22:00 101 H 13 175/42 100 08/19/21 21:45 100 H 14 107/32 100 08/19/21 21:31 98 H 17 107/32 100 08/19/21 21:15 101 H 8 L 82/63 100 08/19/21 21:01 99 H 11 L 137/19 100 08/19/21 21:00 97.2 F L 102 H 16 82/63 100 100 08/19/21 20:45 109 H 84/49 08/19/21 20:30 103 H 90/48 08/19/21 20:29 96 H 90/63 100 08/19/21 20:15 100 H 90/63 08/19/21 20:00 98.3 F 94 H 14 116/31 100 08/19/21 19:45 94 H 98/41 08/19/21 19:30 93 H 107/36 08/19/21 19:15 90 137/60 08/19/21 19:00 91 H 18 116/36 100 08/19/21 18:50 98.3 F 67 16 127/49 100 100 08/19/21 18:00 88 15 127/49 100 08/19/21 17:00 88 18 107/45 100 08/19/21 16:00 87 16 114/43 100 08/19/21 15:00 86 12 133/53 100 08/19/21 14:00 88 11 L 129/51 100 08/19/21 13:00 93 H 18 139/56 100 08/19/21 12:01 100 H 16 138/37 100 08/19/21 11:45 100 08/19/21 11:36 102 H 184/81 100 08/19/21 11:00 114 H 20 112/47 08/19/21 10:34 112 H 16 116/51 100 08/19/21 10:33 111 H 16 116/51 100 08/19/21 10:31 111 H 14 116/51 100 08/19/21 10:29 111 H 15 120/53 100 08/19/21 10:27 99 H 15 120/53 100 08/19/21 10:26 97 H 15 120/53 100 08/19/21 10:25 99 H 14 121/49 100 - Physical Examination General: Other (Intubated and sedated) Neck: Positive: trachea midline Cardiac: Positive: Reg Rate and Rhythm Lungs: Positive: Ventilated Respirations Neuro: Positive: Other (Unable to assess due to intubation and sedation) Abdomen: Positive: Soft Skin: Negative: Rash, Suspicious Lesions, Ulceration Extremities: Present: upper extr. pulses. Absent: edema - Labs and Meds Cardiac Enzymes 08/20/21 Range/Units 04:15 AST 17 (5-40) units/L CBC 08/20/21 Range/Units 04:15 WBC 14.6 H (4.5-11.0) K/mm3 RBC 3.74 (3.65-5.03) M/mm3 Hgb 11.3 (10.1-14.3) gm/dl Hct 35.8 D (30.3-42.9) % Plt Count 269 (140-440) K/mm3 Lymph # (Auto) 1.4 (1.2-5.4) K/mm3 [place] # (Auto) 0.7 (0.0-0.8) K/mm3 Eos # (Auto) 0.4 (0.0-0.4) K/mm3 Baso # (Auto) 0.1 (0.0-0.1) K/mm3 Comprehensive Metabolic Panel 08/19/21 08/20/21 Range/Units 19:15 04:15 Sodium 132 L (137-145) mmol/L Potassium 4.0 (3.6-5.0) mmol/L Chloride 93.8 L (98-107) mmol/L Carbon Dioxide 29 (22-30) mmol/L BUN 10 (7-17) mg/dL Creatinine 2.7 H (0.6-1.2) mg/dL Glucose 26 L* 52 L (65-100) mg/dL Calcium 7.1 L (8.4-10.2) mg/dL AST 17 (5-40) units/L ALT 7 (7-56) units/L Alkaline Phosphatase 85 (35-129) units/L Total Protein 4.9 L (6.3-8.2) g/dL Albumin 2.6 L (3.9-5) g/dL - Imaging and Cardiology Echo: report reviewed - Telemetry EKG Rhythm: Sinus Rhythm - EKG Sinus rhythms and dysrhythmias: sinus tachycardia Repolarization changes or abnormalities: nonspecific abnormality, ST segment, and/or T wave
[2021-08-20] MEDS ORDERED: methylPREDNISolone Sod Succinate 125 MG/2 ML INJ IV ONE (10:33)
[2021-08-20] MEDS: MIDODRINE 5 MG TAB PO SCH ×2 (11:29→15:48)
[2021-08-20] MEDS: METOCLOPRAMIDE 10 MG/2 ML INJ IV SCH ×2 (11:32→20:10)
[2021-08-20] MEDS: BUDESONIDE 0.5 MG/2 ML NEBU IH SCH ×2 (11:40→21:26)
[2021-08-20 12:03] LABS: ABG Base Excess 1.8 mmol/L (-2.0-3.0); ABG HCO3 24.2 mmol/L (20.0-26.0); ABG Methemoglobin 0.6 % (0.0-1.5); ABG Oxygen Saturation 99.1 % (95.0-99.0); ABG PCO2 29.9 mm Hg; ABG PH 7.526 pH Units (7.350-7.450); ABG PO2 166.8 mm Hg (80.0-90.0)
--- NOTE | 2021-08-20 13:14 | Electrocardiograph Report ---
[facility] Test Date: 2021-08-19 Test Time: 05:38:19 Pat Name: LEAH CHARLES Department: Room: A261 Gender: F [employer]er: JAREN : [id number] Requested By: BRITTANY WOODS Order Number: [id number] Reading MD: Sj Johnson Measurements Intervals [place] Rate: 106 P: 105 CT: 144 QRS: 58 QRSD: 88 T: 38 QT: 365 QTc: 484 Interpretive Statements Sinus tachycardia Borderline ST depression, anterior leads No previous ECG available for comparison Electronically Signed On 08-20-2021 13:14:10 EST by Sj Johnson
--- NOTE | 2021-08-20 14:00 | Progress Note ---
Assessment and Plan Cultures: 08/19/2021 blood culture: No growth 08/19/2021 tracheal aspirate culture: Light growth of usual respiratory anastacia 08/19/2021 COVID-19 PCR: Positive A/P: 86-year-old female with diabetes, ESRD on HD, recently hospitalized for COVID- 19, was treated with steroids, did not receive Remdesivir due to her ESRD, was hypoxic but gradually weaned to room air at the time of discharge has now been readmitted after being found unresponsive and noted to be severely hypoglycemic with blood sugar < 20 mg/dl. #Recent COVID-19 pneumonia: Treated with steroids, Remdesivir not indicated. CXR with b/l airspace opacities without much interval change, likely represents COVID-19 sequelae, might take a while before imaging shows improvement. #Acute hypoxic respiratory failure: Due to above. #ESRD on HD: Renally adjust antibiotics #Acute encephalopathy: Likely metabolic given severe hypoglycemia Recs: -Follow-up blood cultures, respiratory cultures -continue IV cefepime, vancomycin for now, renally dosed -Leukocytosis could be due to 1 dose of Solu-Medrol administered in the ER, monitor for now Allyssa Riddle MD, FACP, [facility] ([facility] O: [phone] F: [phone] Subjective Date of service: 08/20/21 Principal diagnosis: Hypoglycemia Interval history: T-max 100.7 F, otherwise afebrile. Remains on the vent. Objective - Exam Narrative Exam: Physical Exam: Constitutional: intubated, on the vent Head, Ears, Nose: Normocephalic, atraumatic. External ears, nose normal Eyes: Conjunctivae/corneas clear. No icterus. No ptosis. Neck: intubated Oral: intubated Cardiovascular: S1, S2 + Respiratory: AE fair bilaterally and equal GI: Soft, bowel sounds + Musculoskeletal: No pedal edema, no cyanosis. Skin: No rash or abscess Hem/Lymphatic: No palpable cervical or supraclavicular nodes. No lymphangitis Psych: no agitation Neurological: unresponsive, intubated, on the vent, exam limited - Constitutional Vitals: Vital Signs Temp Pulse Resp BP Pulse Ox 97.5 F L 106 H 16 108/47 100 08/20/21 11:40 08/20/21 13:15 02/17/22 13:15 08/20/21 13:15 08/20/21 13:15 Temperature -Last 24 Hours Temperature 97.5 F Temperature 98.9 F Temperature 100.7 F Temperature 98.3 F Temperature 97.2 F Temperature 98.3 F Temperature 98.3 F - Labs CBC & Chem 7: 08/20/21 04:15 08/20/21 04:15 Labs: Abnormal lab results 08/19/21 08/19/21 08/19/21 Range/Units 14:03 16:57 18:23 WBC (4.5-11.0) K/mm3 RDW (13.2-15.2) % Lymph % (Auto) (13.4-35.0) % Seg Neutrophils % (40.0-70.0) % Seg Neutrophils # (1.8-7.7) K/mm3 ABG pH (7.350-7.450) pH Units ABG pO2 (80.0-90.0) mm Hg ABG O2 Saturation (95.0-99.0) % ABG Hemoglobin (12.0-16.0) gm/dl Sodium (137-145) mmol/L Chloride (98-107) mmol/L Creatinine (0.6-1.2) mg/dL Glucose (65-100) mg/dL POC Glucose 51 L 57 L 50 L (70-105) mg/dL Lactic Acid (0.7-2.0) mmol/L Calcium (8.4-10.2) mg/dL Total Protein (6.3-8.2) g/dL Albumin (3.9-5) g/dL 08/19/21 08/19/21 08/19/21 Range/Units 19:15 21:42 23:29 WBC (4.5-11.0) K/mm3 RDW (13.2-15.2) % Lymph % (Auto) (13.4-35.0) % Seg Neutrophils % (40.0-70.0) % Seg Neutrophils # (1.8-7.7) K/mm3 ABG pH (7.350-7.450) pH Units ABG pO2 (80.0-90.0) mm Hg ABG O2 Saturation (95.0-99.0) % ABG Hemoglobin (12.0-16.0) gm/dl Sodium (137-145) mmol/L Chloride (98-107) mmol/L Creatinine (0.6-1.2) mg/dL Glucose 26 L* (65-100) mg/dL POC Glucose 57 L 42 L (70-105) mg/dL Lactic Acid (0.7-2.0) mmol/L Calcium (8.4-10.2) mg/dL Total Protein (6.3-8.2) g/dL Albumin (3.9-5) g/dL 08/20/21 08/20/21 08/20/21 Range/Units 00:37 01:41 02:35 WBC (4.5-11.0) K/mm3 RDW (13.2-15.2) % Lymph % (Auto) (13.4-35.0) % Seg Neutrophils % (40.0-70.0) % Seg Neutrophils # (1.8-7.7) K/mm3 ABG pH (7.350-7.450) pH Units ABG pO2 (80.0-90.0) mm Hg ABG O2 Saturation (95.0-99.0) % ABG Hemoglobin (12.0-16.0) gm/dl Sodium (137-145) mmol/L Chloride (98-107) mmol/L Creatinine (0.6-1.2) mg/dL Glucose (65-100) mg/dL POC Glucose 50 L 54 L 40 L (70-105) mg/dL Lactic Acid (0.7-2.0) mmol/L Calcium (8.4-10.2) mg/dL Total Protein (6.3-8.2) g/dL Albumin (3.9-5) g/dL 08/20/21 08/20/21 08/20/21 Range/Units 03:41 04:15 04:15 WBC 14.6 H (4.5-11.0) K/mm3 RDW 20.7 H (13.2-15.2) % Lymph % (Auto) 9.9 L (13.4-35.0) % Seg Neutrophils % 82.4 H (40.0-70.0) % Seg Neutrophils # 12.0 H (1.8-7.7) K/mm3 ABG pH (7.350-7.450) pH Units ABG pO2 (80.0-90.0) mm Hg ABG O2 Saturation (95.0-99.0) % ABG Hemoglobin (12.0-16.0) gm/dl Sodium (137-145) mmol/L Chloride (98-107) mmol/L Creatinine (0.6-1.2) mg/dL Glucose (65-100) mg/dL POC Glucose 13 L (70-105) mg/dL Lactic Acid 3.40 H* (0.7-2.0) mmol/L Calcium (8.4-10.2) mg/dL Total Protein (6.3-8.2) g/dL Albumin (3.9-5) g/dL 08/20/21 08/20/21 08/20/21 Range/Units 04:15 05:28 06:33 WBC (4.5-11.0) K/mm3 RDW (13.2-15.2) % Lymph % (Auto) (13.4-35.0) % Seg Neutrophils % (40.0-70.0) % Seg Neutrophils # (1.8-7.7) K/mm3 ABG pH (7.350-7.450) pH Units ABG pO2 (80.0-90.0) mm Hg ABG O2 Saturation (95.0-99.0) % ABG Hemoglobin (12.0-16.0) gm/dl Sodium 132 L (137-145) mmol/L Chloride 93.8 L (98-107) mmol/L Creatinine 2.7 H (0.6-1.2) mg/dL Glucose 52 L (65-100) mg/dL POC Glucose 51 L 67 L (70-105) mg/dL Lactic Acid (0.7-2.0) mmol/L Calcium 7.1 L (8.4-10.2) mg/dL Total Protein 4.9 L (6.3-8.2) g/dL Albumin 2.6 L (3.9-5) g/dL 08/20/21 08/20/21 08/20/21 Range/Units 07:37 11:55 12:31 WBC (4.5-11.0) K/mm3 RDW (13.2-15.2) % Lymph % (Auto) (13.4-35.0) % Seg Neutrophils % (40.0-70.0) % Seg Neutrophils # (1.8-7.7) K/mm3 ABG pH 7.526 H (7.350-7.450) pH Units ABG pO2 166.8 H (80.0-90.0) mm Hg ABG O2 Saturation 99.1 H (95.0-99.0) % ABG Hemoglobin 8.7 L (12.0-16.0) gm/dl Sodium (137-145) mmol/L Chloride (98-107) mmol/L Creatinine (0.6-1.2) mg/dL Glucose (65-100) mg/dL POC Glucose 59 L 152 H (70-105) mg/dL Lactic Acid (0.7-2.0) mmol/L Calcium (8.4-10.2) mg/dL Total Protein (6.3-8.2) g/dL Albumin (3.9-5) g/dL 08/20/21 Range/Units 13:37 WBC (4.5-11.0) K/mm3 RDW (13.2-15.2) % Lymph % (Auto) (13.4-35.0) % Seg Neutrophils % (40.0-70.0) % Seg Neutrophils # (1.8-7.7) K/mm3 ABG pH (7.350-7.450) pH Units ABG pO2 (80.0-90.0) mm Hg ABG O2 Saturation (95.0-99.0) % ABG Hemoglobin (12.0-16.0) gm/dl Sodium (137-145) mmol/L Chloride (98-107) mmol/L Creatinine (0.6-1.2) mg/dL Glucose (65-100) mg/dL POC Glucose 150 H (70-105) mg/dL Lactic Acid (0.7-2.0) mmol/L Calcium (8.4-10.2) mg/dL Total Protein (6.3-8.2) g/dL Albumin (3.9-5) g/dL
[2021-08-20] MEDS ORDERED: SODIUM CHLORIDE 0.9% 500 ML 500 ML ONE (16:00)
--- NOTE | 2021-08-20 17:09 | Progress Note ---
Assessment and Plan Impression * End-stage renal disease on maintenance hemodialysis * Acute hypoxic respiratory failure * COVID-19 pneumonia * Hypokalemia * Anemia secondary to ESRD * Diabetes * Hypertension Recommendations * No acute need for HD today * Continue hemodialysis MWF * UF as tolerated * Vent management per primary team * Maintain MAP>65 - pressors prn * Antibiotic therapy as per primary team and infectious diseases * Adjust diet and meds for ESRD state * Epogen with dialysis * No IV, BP or venipuncture in her access arm * Avoid nephrotoxins * Monitor fluid status and electrolytes closely Subjective Date of service: 08/20/21 Principal diagnosis: Hypoglycemia Interval history: Chart, vitals, labs reviewed Objective - Exam Narrative Exam: Physical exam deferred. Exam of primary team reviewed - Vital Signs Vital signs: Vital Signs - 12hr 08/20/21 08/20/21 08/20/21 05:15 05:16 05:30 Temperature Pulse Rate 106 H 105 H 103 H Respiratory 13 18 Rate Blood Pressure 150/57 150/57 103/41 O2 Sat by Pulse 100 100 100 Oximetry 08/20/21 08/20/21 08/20/21 05:45 06:00 06:15 Temperature Pulse Rate 103 H 101 H 101 H Respiratory 19 18 18 Rate Blood Pressure 103/45 103/45 114/42 O2 Sat by Pulse 100 100 100 Oximetry 08/20/21 08/20/21 08/20/21 06:30 06:45 07:00 Temperature Pulse Rate 101 H 104 H 105 H Respiratory 15 18 18 Rate Blood Pressure 123/45 123/45 88/43 O2 Sat by Pulse 100 100 100 Oximetry 08/20/21 08/20/21 08/20/21 07:15 07:30 07:45 Temperature Pulse Rate 101 H 102 H 102 H Respiratory 11 L 18 17 Rate Blood Pressure 137/35 119/32 114/47 O2 Sat by Pulse 100 100 100 Oximetry 08/20/21 08/20/21 08/20/21 07:49 08:00 08:15 Temperature 98.9 F Pulse Rate 103 H 103 H Respiratory 18 11 L Rate Blood Pressure 112/47 112/47 O2 Sat by Pulse 100 100 Oximetry 08/20/21 08/20/21 08/20/21 08:31 08:45 09:00 Temperature Pulse Rate 109 H 105 H 103 H Respiratory 11 L 10 L 18 Rate Blood Pressure 112/47 95/41 80/28 O2 Sat by Pulse 100 100 100 Oximetry 08/20/21 08/20/21 08/20/21 09:15 09:30 09:45 Temperature Pulse Rate 100 H 99 H 99 H Respiratory 13 16 18 Rate Blood Pressure 80/28 89/31 89/31 O2 Sat by Pulse 100 100 100 Oximetry 08/20/21 08/20/21 08/20/21 10:00 10:15 10:31 Temperature Pulse Rate 101 H 101 H 102 H Respiratory 17 19 17 Rate Blood Pressure 93/36 93/36 99/39 O2 Sat by Pulse 100 100 100 Oximetry 08/20/21 08/20/21 08/20/21 10:45 11:00 11:15 Temperature Pulse Rate 106 H 103 H 104 H Respiratory 18 16 13 Rate Blood Pressure 99/39 107/36 107/36 O2 Sat by Pulse 100 100 100 Oximetry 08/20/21 08/20/21 08/20/21 11:30 11:40 11:45 Temperature 97.5 F L Pulse Rate 101 H 99 H 98 H Respiratory 18 16 Rate Blood Pressure 119/41 119/41 119/41 O2 Sat by Pulse 100 100 100 Oximetry 08/20/21 08/20/21 08/20/21 12:00 12:01 12:15 Temperature Pulse Rate 107 H 99 H 108 H Respiratory 18 16 Rate Blood Pressure 119/41 129/51 O2 Sat by Pulse 100 100 100 Oximetry 08/20/21 08/20/21 08/20/21 12:30 12:45 13:00 Temperature Pulse Rate 107 H 107 H 107 H Respiratory 15 15 15 Rate Blood Pressure 117/42 117/42 108/47 O2 Sat by Pulse 100 100 100 Oximetry 08/20/21 08/20/21 08/20/21 13:15 13:30 13:46 Temperature Pulse Rate 106 H 107 H 108 H Respiratory 16 17 18 Rate Blood Pressure 108/47 113/46 117/42 O2 Sat by Pulse 100 100 100 Oximetry 08/20/21 08/20/21 08/20/21 14:00 14:16 14:30 Temperature Pulse Rate 105 H 106 H 105 H Respiratory 15 15 14 Rate Blood Pressure 105/43 105/43 104/40 O2 Sat by Pulse 100 100 100 Oximetry 08/20/21 08/20/21 08/20/21 14:46 15:00 15:16 Temperature Pulse Rate 109 H 108 H 106 H Respiratory 16 15 15 Rate Blood Pressure 104/40 126/48 126/48 O2 Sat by Pulse 100 100 100 Oximetry 08/20/21 08/20/21 15:27 15:30 Temperature Pulse Rate 105 H 106 H Respiratory 17 Rate Blood Pressure 108/47 108/47 O2 Sat by Pulse 100 100 Oximetry - Lab 08/21/21 04:46 08/21/21 04:46 Most recent lab results ABG pH 7.526 pH Units (7.350-7.450) H 08/20/21 11:55 ABG pCO2 29.9 mm Hg 08/20/21 11:55 ABG pO2 166.8 mm Hg (80.0-90.0) H 08/20/21 11:55 ABG HCO3 24.2 mmol/L (20.0-26.0) 08/20/21 11:55 ABG O2 Saturation 99.1 % (95.0-99.0) H 08/20/21 11:55 Calcium 7.1 mg/dL (8.4-10.2) L 08/20/21 04:15 Magnesium 1.50 mg/dL (1.7-2.3) L 08/19/21 04:53 Medications & Allergies - Medications Allergies/Adverse Reactions: Allergies No Known Allergies Allergy (Verified 08/12/21 12:49) Home Medications: Home Medications Medication Instructions Recorded Confirmed Last Taken Type amLODIPine 10 mg PO DAILY #30 tablet 01/31/20 08/12/21 Unknown Rx Glimepiride 1 mg PO QDAY #30 tablet 04/21/20 08/12/21 Unknown Rx Diclofenac 1% [Diclofenac 1% 2 - 4 gm TP QID 08/12/21 08/12/21 Unknown History topical gel] Gabapentin 300 mg PO BID 08/12/21 08/12/21 Unknown History Mirtazapine [Remeron 15mg TAB] 15 mg PO QHS 08/12/21 08/12/21 Unknown History cloNIDine [Catapres] 0.1 mg PO BID 08/12/21 08/12/21 Unknown History Ascorbic Acid/Ascorbate Sodium 500 mg PO BID #30 08/17/21 Unknown Rx [Vitamin C 500 mg Tablet Chew] Cholecalciferol Vit D3 [Vitamin D3 1,000 unit PO QDAY #15 tablet 08/17/21 Unknown Rx 1,000 UNIT TAB] Dexamethasone 6 mg PO QID #5 tab 08/17/21 Unknown Rx Famotidine [Pepcid] 20 mg PO QAM #30 tablet 08/17/21 Unknown Rx Zinc Sulfate [Zinc] 220 mg PO BID #30 08/17/21 Unknown Rx Active Medications: Generic Name Dose Route Start Last Admin Trade Name Freq PRN Reason Stop Dose Admin Acetaminophen 650 mg 08/19/21 10:00 Acetaminophen 325 Mg Tab PO Q6H PRN Pain MILD(1-3)/Fever >100.5/MEHTA Albuterol 2.5 mg 08/19/21 11:00 Albuterol 2.5 Mg/3 Ml Nebu IH Q3HRT PRN Shortness Of Breath Albuterol/Ipratropium 1 ampul 08/19/21 14:00 08/20/21 14:06 Ipratropium/Albuterol Sulfate 3 Ml Ampul.Neb IH Not Given Q6HRT ANAHY Budesonide 0.5 mg 08/19/21 20:00 08/20/21 11:40 Budesonide 0.5 Mg/2 Ml Nebu IH Not Given Q12HRT ANAHY Cholecalciferol 1,000 unit 08/19/21 10:00 08/20/21 09:21 Cholecalciferol (Vit D3) 1000 Unit (25 Mcg) Tab PO 1,000 unit QDAY ANAHY Administration Dextrose 0 ml 08/19/21 09:30 08/20/21 11:28 Dextrose 10% *Hypoglycemia IV 50 ml PRN PRN Administration Hypoglycemia Famotidine 20 mg 08/19/21 10:00 08/20/21 09:21 Famotidine 20 Mg Tab PO 20 mg QAM ANAHY Administration Fentanyl 50 mcg 08/20/21 10:03 Fentanyl 100 Mcg/2 Ml Inj IV Q2HR PRN For CPOT greater than 3 Gabapentin 300 mg 08/19/21 10:00 08/20/21 09:21 Gabapentin 300 Mg Cap PO 300 mg BID ANAHY Administration Heparin Sodium (Porcine) 5,000 unit 08/19/21 11:00 08/20/21 13:40 Heparin 5,000 Unit/1 Ml Vial SUB-Q 5,000 unit Q8HR ANAHY Administration Sodium Chloride 100 mls @ 999 mls/hr 08/19/21 11:14 Nacl 0.9% IV LEVI PRN Hypotension Cefepime HCl 1 gm in 100 mls @ 200 mls/hr 08/19/21 18:00 08/19/21 17:39 Cefepime/Ns 1 Gm/100 Ml IV 200 mls/hr QPM ANAHY Administration Protocol Dextrose 1,000 mls @ 50 mls/hr 08/20/21 11:00 08/20/21 15:52 D10w IV 0 mls/hr DIRECT ANAHY Infusion Insulin Human Lispro 0 unit 08/19/21 12:00 08/20/21 12:00 Insulin Lispro 100 Unit/Ml SUB-Q Not Given Q6HR [facility] Protocol Metoclopramide HCl 5 mg 08/20/21 12:00 08/20/21 11:32 Metoclopramide 10 Mg/2 Ml Inj IV 5 mg Q8H ANAHY Administration Midodrine 10 mg 08/20/21 12:00 08/20/21 15:48 Midodrine 5 Mg Tab PO 10 mg TID@0800,1200,1600 ANAHY Administration Mirtazapine 15 mg 08/20/21 10:02 Mirtazapine 15 Mg Tab PO QHS PRN Sleep Naloxone HCl 0.1 mg 08/19/21 09:30 Naloxone 0.4 Mg/1 Ml Inj IV Q2MIN PRN Res Rate </= 8 or 02 SAT < 92% Senna 17.6 mg 08/20/21 22:00 Sennosides Oral Liqd 8.8 Mg/5 Ml Oral Liqd PO QHS ANAHY Simple Syrup 30 ml 08/19/21 17:44 08/20/21 03:48 Simple Syrup 15 Ml FEEDTUBE 30 ml PRN PRN Administration Hypoglycemia Sodium Chloride 10 ml 08/19/21 10:00 08/20/21 09:23 Sodium Chloride 0.9% 10 Ml Flush Syringe IV 10 ml BID ANAHY Administration Sodium Chloride 10 ml 08/19/21 09:30 Sodium Chloride 0.9% 10 Ml Flush Syringe IV PRN PRN LINE FLUSH Zinc Sulfate 220 mg 08/19/21 11:00 08/20/21 09:21 Zinc Sulfate 220 Mg Cap PO 220 mg BID ANAHY Administration
[2021-08-20] MEDS: CEFEPIME/NS 1 GM/100 ML 1 GM/100 ML BAG IV SCH (17:55)
[2021-08-20] MEDS: SENNOSIDES ORAL LIQD 8.8 MG/5 ML ORAL LIQD PO SCH (21:55)
[2021-08-21] MEDS: INSULIN LISPRO 100 UNIT/ML SUB-Q SCH ×4 (00:31→17:42)
[2021-08-21] MEDS: IPRATROPIUM/ALBUTEROL SULFATE 3 ML AMPUL.NEB IH SCH ×4 (02:15→20:59)
[2021-08-21] MEDS: METOCLOPRAMIDE 10 MG/2 ML INJ IV SCH ×3 (04:13→20:14)
[2021-08-21 05:46] LABS: C-Reactive Protein 10.6 mg/dL (0.00-1.30); Calcium 6.8 mg/dL (8.4-10.2)
[2021-08-21 05:49] LABS: Hematocrit 23.6 % (30.3-42.9); Hemoglobin 7.8 gm/dl (10.1-14.3); Mean Corpuscular HGB Conc 33 % (30-34); Mean Corpuscular Volume 93 fl (79-97); Platelet Count 280 K/mm3 (140-440); Red Blood Count 2.55 M/mm3 (3.65-5.03)
[2021-08-21 05:57] LABS: Red Cell Distribution Width 20.2 % (13.2-15.2)
[2021-08-21 05:57] LABS: ABG Base Excess 3.4 mmol/L (-2.0-3.0); ABG HCO3 26.3 mmol/L (20.0-26.0); ABG Methemoglobin 0.5 % (0.0-1.5); ABG PCO2 32.9 mm Hg; ABG PH 7.52 pH Units (7.350-7.450); ABG PO2 152.6 mm Hg (80.0-90.0)
[2021-08-21] MEDS: HEPARIN 5,000 UNIT/1 ML VIAL SUB-Q SCH ×3 (06:01→22:32)
[2021-08-21] MEDS: MIDODRINE 5 MG TAB PO SCH ×3 (08:01→17:00)
[2021-08-21] MEDS: BUDESONIDE 0.5 MG/2 ML NEBU IH SCH ×2 (08:14→20:59)
[2021-08-21] MEDS ORDERED: DEXTROSE 50% IN WATER (25GM) 50 ML SYRINGE IV PRN (08:22)
[2021-08-21 08:26] LABS: ABG Base Excess 2.8 mmol/L (-2.0-3.0); ABG HCO3 26.2 mmol/L (20.0-26.0); ABG Methemoglobin 0.5 % (0.0-1.5); ABG Oxygen Saturation 98.9 % (95.0-99.0); ABG PCO2 34.8 mm Hg; ABG PH 7.495 pH Units (7.350-7.450); ABG PO2 141.5 mm Hg (80.0-90.0)
[2021-08-21 08:33] LABS: Anisocytosis 1+; Basophils % (Manual) 0 % (0.0-1.8); Eosinophils % (Manual) 0 % (0.0-4.3); Hypochromasia 1+; Platelet Estimate Consistent w Auto; Total Cells Counted 100
[2021-08-21] MEDS ORDERED: SODIUM CHLORIDE 0.9% 1000 ML 1,000 ML IV SCH (09:00)
[2021-08-21] MEDS: FAMOTIDINE 20 MG TAB PO SCH (09:15)
[2021-08-21] MEDS: ZINC SULFATE 220 MG CAP PO SCH ×2 (09:15→22:39)
[2021-08-21] MEDS: GABAPENTIN 300 MG CAP PO SCH ×2 (09:15→22:32)
[2021-08-21] MEDS: CHOLECALCIFEROL (VIT D3) 1000 UNIT (25 mcg) TAB PO SCH (09:15)
[2021-08-21] MEDS ORDERED: MAGNESIUM SULFATE 2 GM/50 ML BAG IV ONE (10:00)
[2021-08-21] MEDS ORDERED: SODIUM PHOSPHATE 15 MMOL in SODIUM CHLORIDE 0.9% 250ML 250 ML IV ONE (10:00)
--- NOTE | 2021-08-21 10:03 | Progress Note ---
Assessment and Plan Impression * End-stage renal disease on maintenance hemodialysis * Acute hypoxic respiratory failure * COVID-19 pneumonia * Hypokalemia * Hyponatremia * Anemia secondary to ESRD * Diabetes * Hypertension Recommendations * Continue hemodialysis MWF * UF as tolerated * Vent management per primary team * Maintain MAP>65 - pressors prn * Antibiotic therapy as per primary team and infectious diseases * Adjust diet and meds for ESRD state * Epogen with dialysis * No IV, BP or venipuncture in her access arm * Avoid nephrotoxins * Monitor fluid status and electrolytes closely Subjective Date of service: 08/21/21 Principal diagnosis: Hypoglycemia Objective - Vital Signs Vital signs: Vital Signs - 12hr 08/20/21 08/20/21 08/20/21 22:14 22:16 22:30 Temperature Pulse Rate 87 88 87 Pulse Rate [ Anterior Bilateral] Pulse Rate [ Bilateral Throughout] Pulse Rate [ From Monitor] Respiratory 18 18 20 Rate Respiratory Rate [Anterior Bilateral] Respiratory Rate [Bilateral Throughout] Blood Pressure 119/45 119/45 104/30 O2 Sat by Pulse 100 100 100 Oximetry 08/20/21 08/20/21 08/20/21 22:46 23:00 23:16 Temperature Pulse Rate 86 82 80 Pulse Rate [ Anterior Bilateral] Pulse Rate [ Bilateral Throughout] Pulse Rate [ From Monitor] Respiratory 18 16 17 Rate Respiratory Rate [Anterior Bilateral] Respiratory Rate [Bilateral Throughout] Blood Pressure 104/30 101/31 101/31 O2 Sat by Pulse 100 100 100 Oximetry 08/20/21 08/20/21 08/20/21 23:30 23:46 23:53 Temperature 98.5 F Pulse Rate 83 87 Pulse Rate [ Anterior Bilateral] Pulse Rate [ Bilateral Throughout] Pulse Rate [ From Monitor] Respiratory 19 18 Rate Respiratory Rate [Anterior Bilateral] Respiratory Rate [Bilateral Throughout] Blood Pressure 97/30 113/40 O2 Sat by Pulse 100 100 Oximetry 08/21/21 08/21/21 08/21/21 00:00 00:16 00:30 Temperature Pulse Rate 84 98 H 81 Pulse Rate [ Anterior Bilateral] Pulse Rate [ Bilateral Throughout] Pulse Rate [ From Monitor] Respiratory 19 18 17 Rate Respiratory Rate [Anterior Bilateral] Respiratory Rate [Bilateral Throughout] Blood Pressure 118/39 118/39 108/36 O2 Sat by Pulse 100 100 100 Oximetry 08/21/21 08/21/21 08/21/21 00:40 00:46 01:00 Temperature Pulse Rate 88 85 85 Pulse Rate [ Anterior Bilateral] Pulse Rate [ Bilateral Throughout] Pulse Rate [ From Monitor] Respiratory 17 17 Rate Respiratory Rate [Anterior Bilateral] Respiratory Rate [Bilateral Throughout] Blood Pressure 104/35 108/36 104/35 O2 Sat by Pulse 100 100 100 Oximetry 08/21/21 08/21/21 08/21/21 01:16 01:30 01:46 Temperature Pulse Rate 87 84 81 Pulse Rate [ Anterior Bilateral] Pulse Rate [ Bilateral Throughout] Pulse Rate [ From Monitor] Respiratory 18 18 17 Rate Respiratory Rate [Anterior Bilateral] Respiratory Rate [Bilateral Throughout] Blood Pressure 104/35 110/38 110/38 O2 Sat by Pulse 100 100 100 Oximetry 08/21/21 08/21/21 08/21/21 02:00 02:12 02:16 Temperature Pulse Rate 82 79 Pulse Rate [ Anterior Bilateral] Pulse Rate [ 106 H Bilateral Throughout] Pulse Rate [ From Monitor] Respiratory 16 16 Rate Respiratory Rate [Anterior Bilateral] Respiratory 30 H Rate [Bilateral Throughout] Blood Pressure 115/36 115/36 O2 Sat by Pulse 100 100 Oximetry 08/21/21 08/21/21 08/21/21 02:30 02:46 03:00 Temperature Pulse Rate 77 78 78 Pulse Rate [ Anterior Bilateral] Pulse Rate [ Bilateral Throughout] Pulse Rate [ From Monitor] Respiratory 19 16 16 Rate Respiratory Rate [Anterior Bilateral] Respiratory Rate [Bilateral Throughout] Blood Pressure 92/29 92/29 99/33 O2 Sat by Pulse 100 100 100 Oximetry 08/21/21 08/21/21 08/21/21 03:16 03:30 03:35 Temperature 99.6 F Pulse Rate 80 81 Pulse Rate [ Anterior Bilateral] Pulse Rate [ Bilateral Throughout] Pulse Rate [ From Monitor] Respiratory 17 18 Rate Respiratory Rate [Anterior Bilateral] Respiratory Rate [Bilateral Throughout] Blood Pressure 99/33 104/35 O2 Sat by Pulse 100 100 Oximetry 08/21/21 08/21/21 08/21/21 03:46 04:00 04:16 Temperature Pulse Rate 79 85 78 Pulse Rate [ Anterior Bilateral] Pulse Rate [ Bilateral Throughout] Pulse Rate [ From Monitor] Respiratory 16 17 15 Rate Respiratory Rate [Anterior Bilateral] Respiratory Rate [Bilateral Throughout] Blood Pressure 104/35 113/37 114/34 O2 Sat by Pulse 100 100 100 Oximetry 08/21/21 08/21/21 08/21/21 04:30 04:46 05:00 Temperature Pulse Rate 82 83 84 Pulse Rate [ Anterior Bilateral] Pulse Rate [ Bilateral Throughout] Pulse Rate [ From Monitor] Respiratory 17 17 18 Rate Respiratory Rate [Anterior Bilateral] Respiratory Rate [Bilateral Throughout] Blood Pressure 111/36 111/36 120/32 O2 Sat by Pulse 100 100 100 Oximetry 08/21/21 08/21/21 08/21/21 05:16 05:30 05:46 Temperature Pulse Rate 85 84 85 Pulse Rate [ Anterior Bilateral] Pulse Rate [ Bilateral Throughout] Pulse Rate [ From Monitor] Respiratory 18 15 12 Rate Respiratory Rate [Anterior Bilateral] Respiratory Rate [Bilateral Throughout] Blood Pressure 120/32 113/37 113/37 O2 Sat by Pulse 100 100 100 Oximetry 08/21/21 08/21/21 08/21/21 06:00 06:16 06:18 Temperature Pulse Rate 83 79 Pulse Rate [ Anterior Bilateral] Pulse Rate [ Bilateral Throughout] Pulse Rate [ From Monitor] Respiratory 21 17 19 Rate Respiratory Rate [Anterior Bilateral] Respiratory Rate [Bilateral Throughout] Blood Pressure 109/39 109/39 O2 Sat by Pulse 100 100 100 Oximetry 08/21/21 08/21/21 08/21/21 06:30 06:46 07:00 Temperature Pulse Rate 76 74 71 Pulse Rate [ Anterior Bilateral] Pulse Rate [ Bilateral Throughout] Pulse Rate [ From Monitor] Respiratory 18 17 17 Rate Respiratory Rate [Anterior Bilateral] Respiratory Rate [Bilateral Throughout] Blood Pressure 109/39 90/30 88/29 O2 Sat by Pulse 100 100 100 Oximetry 08/21/21 08/21/21 08/21/21 07:16 07:30 07:36 Temperature 98.6 F Pulse Rate 83 78 Pulse Rate [ Anterior Bilateral] Pulse Rate [ Bilateral Throughout] Pulse Rate [ From Monitor] Respiratory 18 18 Rate Respiratory Rate [Anterior Bilateral] Respiratory Rate [Bilateral Throughout] Blood Pressure 105/34 129/40 O2 Sat by Pulse 100 100 Oximetry 08/21/21 08/21/21 08/21/21 07:46 08:00 08:06 Temperature Pulse Rate 77 77 77 Pulse Rate [ Anterior Bilateral] Pulse Rate [ Bilateral Throughout] Pulse Rate [ From Monitor] Respiratory 18 18 Rate Respiratory Rate [Anterior Bilateral] Respiratory Rate [Bilateral Throughout] Blood Pressure 129/40 124/37 124/37 O2 Sat by Pulse 100 100 100 Oximetry 08/21/21 08/21/21 08/21/21 08:14 08:16 08:30 Temperature Pulse Rate 77 73 Pulse Rate [ 79 Anterior Bilateral] Pulse Rate [ Bilateral Throughout] Pulse Rate [ From Monitor] Respiratory 15 18 Rate Respiratory 19 Rate [Anterior Bilateral] Respiratory Rate [Bilateral Throughout] Blood Pressure 124/37 130/35 O2 Sat by Pulse 100 100 Oximetry 08/21/21 08/21/21 08:46 09:46 Temperature Pulse Rate 71 Pulse Rate [ Anterior Bilateral] Pulse Rate [ Bilateral Throughout] Pulse Rate [ 78 From Monitor] Respiratory 18 18 Rate Respiratory Rate [Anterior Bilateral] Respiratory Rate [Bilateral Throughout] Blood Pressure 130/35 O2 Sat by Pulse 100 100 Oximetry - Lab 08/21/21 04:46 08/21/21 04:46 Most recent lab results ABG pH 7.495 pH Units (7.350-7.450) H 08/21/21 08:18 ABG pCO2 34.8 mm Hg 08/21/21 08:18 ABG pO2 141.5 mm Hg (80.0-90.0) H 08/21/21 08:18 ABG HCO3 26.2 mmol/L (20.0-26.0) H 08/21/21 08:18 ABG O2 Saturation 98.9 % (95.0-99.0) 08/21/21 08:18 Calcium 6.8 mg/dL (8.4-10.2) L 08/21/21 04:46 Phosphorus 1.60 mg/dL (2.5-4.5) L 08/21/21 04:46 Magnesium 1.60 mg/dL (1.7-2.3) L 08/21/21 04:46 Medications & Allergies - Medications Allergies/Adverse Reactions: Allergies No Known Allergies Allergy (Verified 08/12/21 12:49) Home Medications: Home Medications Medication Instructions Recorded Confirmed Last Taken Type amLODIPine 10 mg PO DAILY #30 tablet 01/31/20 08/12/21 Unknown Rx Glimepiride 1 mg PO QDAY #30 tablet 04/21/20 08/12/21 Unknown Rx Diclofenac 1% [Diclofenac 1% 2 - 4 gm TP QID 08/12/21 08/12/21 Unknown History topical gel] Gabapentin 300 mg PO BID 08/12/21 08/12/21 Unknown History Mirtazapine [Remeron 15mg TAB] 15 mg PO QHS 08/12/21 08/12/21 Unknown History cloNIDine [Catapres] 0.1 mg PO BID 08/12/21 08/12/21 Unknown History Ascorbic Acid/Ascorbate Sodium 500 mg PO BID #30 08/17/21 Unknown Rx [Vitamin C 500 mg Tablet Chew] Cholecalciferol Vit D3 [Vitamin D3 1,000 unit PO QDAY #15 tablet 08/17/21 Unknown Rx 1,000 UNIT TAB] Dexamethasone 6 mg PO QID #5 tab 08/17/21 Unknown Rx Famotidine [Pepcid] 20 mg PO QAM #30 tablet 08/17/21 Unknown Rx Zinc Sulfate [Zinc] 220 mg PO BID #30 08/17/21 Unknown Rx Active Medications: Generic Name Dose Route Start Last Admin Trade Name Freq PRN Reason Stop Dose Admin Acetaminophen 650 mg 08/19/21 10:00 Acetaminophen 325 Mg Tab PO Q6H PRN Pain MILD(1-3)/Fever >100.5/MEHTA Albuterol 2.5 mg 08/19/21 11:00 Albuterol 2.5 Mg/3 Ml Nebu IH Q3HRT PRN Shortness Of Breath Albuterol/Ipratropium 1 ampul 08/19/21 14:00 08/21/21 08:14 Ipratropium/Albuterol Sulfate 3 Ml Ampul.Neb IH 1 ampul Q6HRT ANAHY Administration Budesonide 0.5 mg 08/19/21 20:00 08/21/21 08:14 Budesonide 0.5 Mg/2 Ml Nebu IH 0.5 mg Q12HRT ANAHY Administration Cholecalciferol 1,000 unit 08/19/21 10:00 08/21/21 09:15 Cholecalciferol (Vit D3) 1000 Unit (25 Mcg) Tab PO 1,000 unit QDAY ANAHY Administration Dextrose 0 ml 08/19/21 09:30 08/20/21 11:28 Dextrose 10% *Hypoglycemia IV 50 ml PRN PRN Administration Hypoglycemia Famotidine 20 mg 08/19/21 10:00 08/21/21 09:15 Famotidine 20 Mg Tab PO 20 mg QAM ANAHY Administration Fentanyl 50 mcg 08/20/21 10:03 Fentanyl 100 Mcg/2 Ml Inj IV Q2HR PRN For CPOT greater than 3 Gabapentin 300 mg 08/19/21 10:00 08/21/21 09:15 Gabapentin 300 Mg Cap PO 300 mg BID ANAHY Administration Heparin Sodium (Porcine) 5,000 unit 08/19/21 11:00 08/21/21 06:01 Heparin 5,000 Unit/1 Ml Vial SUB-Q 5,000 unit Q8HR ANAHY Administration Sodium Chloride 100 mls @ 999 mls/hr 08/19/21 11:14 Nacl 0.9% IV LEVI PRN Hypotension Cefepime HCl 1 gm in 100 mls @ 200 mls/hr 08/19/21 18:00 08/20/21 17:55 Cefepime/Ns 1 Gm/100 Ml IV 200 mls/hr QPM ANAHY Administration Protocol Dextrose 1,000 mls @ 50 mls/hr 08/20/21 11:00 08/20/21 15:52 D10w IV 0 mls/hr DIRECT ANAHY Infusion Sodium Chloride 1,000 mls @ 50 mls/hr 08/21/21 09:00 08/21/21 09:24 Nacl 0.9% 1000 Ml IV 08/22/21 04:59 50 mls/hr DIRECT ANAHY Administration Magnesium Sulfate 2 gm in 50 mls @ 25 mls/hr 08/21/21 10:00 08/21/21 09:24 Magnesium Sulfate 2gm/50ml IV 08/21/21 11:59 25 mls/hr ONCE ONE Administration Sodium Phosphate 15 mmol/ 255 mls @ 125 mls/hr 08/21/21 10:00 08/21/21 09:38 Sodium Chloride IV 08/21/21 12:02 125 mls/hr ONCE ONE Administration Insulin Human Lispro 0 unit 08/19/21 12:00 08/21/21 06:00 Insulin Lispro 100 Unit/Ml SUB-Q Not Given Q6HR ANAHY Protocol Metoclopramide HCl 5 mg 08/20/21 12:00 08/21/21 04:13 Metoclopramide 10 Mg/2 Ml Inj IV 5 mg Q8H ANAHY Administration Midodrine 10 mg 08/20/21 12:00 08/21/21 08:01 Midodrine 5 Mg Tab PO 10 mg TID@0800,1200,1600 ANAHY Administration Mirtazapine 15 mg 08/20/21 10:02 Mirtazapine 15 Mg Tab PO QHS PRN Sleep Naloxone HCl 0.1 mg 08/19/21 09:30 Naloxone 0.4 Mg/1 Ml Inj IV Q2MIN PRN Res Rate </= 8 or 02 SAT < 92% Senna 17.6 mg 08/20/21 22:00 08/20/21 21:55 Sennosides Oral Liqd 8.8 Mg/5 Ml Oral Liqd PO 17.6 mg QHS ANAHY Administration Simple Syrup 30 ml 08/19/21 17:44 08/20/21 03:48 Simple Syrup 15 Ml FEEDTUBE 30 ml PRN PRN Administration Hypoglycemia Sodium Chloride 10 ml 08/19/21 10:00 08/21/21 09:15 Sodium Chloride 0.9% 10 Ml Flush Syringe IV 10 ml BID ANAHY Administration Sodium Chloride 10 ml 08/19/21 09:30 Sodium Chloride 0.9% 10 Ml Flush Syringe IV PRN PRN LINE FLUSH Zinc Sulfate 220 mg 08/19/21 11:00 08/21/21 09:15 Zinc Sulfate 220 Mg Cap PO 220 mg BID ANAHY Administration
--- NOTE | 2021-08-21 11:54 | Progress Note ---
<JUAN JOSÉ MCLAUGHLIN - Last Filed: 08/21/21 17:31> Assessment and Plan Assessment and plan: This is a 86-year-old female with known past medical history of DM, ESRD on HD, HTN, who was recent hospitalized for COVID pneumonia admitted this time with severe hypoglycemia and acute hypoxemic respiratory failure requiring ventilat ory support. Hospital Course to Date: 08/20: Off sedation this am, open eyes spontaneously but does not follow any commands. Patient remains hypoglycemic throught the night despite D10W gtt and TF at goal. TF is now on hold this am due to vomiting. Reglan was initiated Q8h rs, X1 dose of IV steroids, and continue D10w and Q1hr BG check for now. Midodrine was also added TID for hypotension. Possible PST today once more awake, plan to start weaning vent for possible extubation. 08/21: Patient remains on thevent, mentation is unchanged, off sedation. BG impro lisandra, no more vomiting, patient is tolerating TF. On SSI Q6hrs, low NA this am, will switch D10w to NS at 50cc,a and mag and phosp repleted. Possible HD today per Nephro. BP also improved, continue midodrine TID. Family conference call today with the attending. Patient's condition and overall poor prognosis were thoroughly discussed with patient's family. They want to keep patient as a FULL code status and leaning towards Trach and PEG. D/w CCM, will continue to monitor patient's mental status over the weekend. If no improvement by tuesday, plan to consult General Surgery for possible trach and PEG tube placement. Assessment and Plan #Acute Hypoxemic Respiratory Failure #COVID Pneumonia #Possible Aspiration - Presented unresponsive, patient was intubated in the ED for airway proctection - Patient was recently treated for COVID with IV steroids - COVID PCR is still positive - This am vent setting: PRVC-40%,6,18,300 - AM ABG noted - CCM consulted, appreciate recommendations - Continue IV ABx per ID and Nebs per CCM - VAP bundle addressed - Aspiration precaution HOB above 30 - Daily SBT and SAT trials as tolerated - Daily ABG and CXR - Continue SPO2 monitoring for SPO2 goal above 92% #Sepsis #Leukocytosis #COVID Pneumonia #Possible Aspiration - Recent treated for COVID pneumonia with IV steroids - Patient was not a candidate for Remdesevir due to ESRD - Imaging still with persistent bilateral lungs opacities with minimal change from last admit - Repeat COVID PCR is positive - Sputum and blood culture is pending - ID is on consult - Continue empiric IV Abx for now per ID - Continue to F/U on B.cult - Daily CBC monitor #Hypotension #Congestive heart failure with preserved EF- Chronic #NSTEMI - BP is stable this am - Continue Midodrine TID - Continue blood pressure monitor per protocol - Antihypertensive agents are on hold - Patient also presented with elevated BNP and elevated troponin - Cardiology on consult, appreciated recommendations - 08/19 Echo- EF 40-45% - SR noted on the monitor this am #Severe Hypoglycemia-resolved #H/o DM - Reported patient was with poor appetite at home and receiving oral diabetic agents - Presented with severe hypoglycemia, s/p X1 dose of IV steroids - Now on low SSI Q6hrs - TF resumed and patient is tolerating TF this am - Continue hypoglycemic protocol - Avoid Hypoglycemia #Acute Metabolic Encephalopathy - Most likely related to severe hypoglycemia - CT head noted with no acute findings- remote lacunar infarct, generalized atrophy, and microvascular ischemia - Off sedation this am - Hold all sedative agents for now - PRN analgesia for CPOT greater than 3 - Avoid benzo to prevent delirium - Maintenance of sleep-wake cycle #End-Stage Renal Disease(ESRD) on HD - Nephrology on consult, appreciated recommendation - Patient did not tolerated HD overnight due to low BP - Midodrine added TID - Continue HD per Nephro - Strict intake and output; Patient is anuric - Avoid nephrotoxic medications; Renally dose medications - Monitor and replace electrolytes as needed - Trend BMP #Nausea/Vomiting #Severe protein calorie malnutrition - Enteral Nutrition initiated - Tolerating TF this am, no vomiting reported - Continue Reglan [id number] - Continue BR - Continue PPI- Pepcid - Nutrition on consult for TF management #GI/DVT Prophylaxis - PPI- Pepcid - Continue AC- Hep SubQ - SCDs to bilateral lower extremities while in bed The high probability of a clinically significant, sudden or life threatening deterioration of the [multiple] system(s) required my full and direct attention, intervention and personal management. The aggregate critical care time was [60] minutes. This time is in addition to time spent performing reported procedures but includes the following: [x] Data Review and interpretation [x] Patient assessment and monitoring of vital signs [x] Documentation [x] Medication orders and management Disposition Plan: ICU Total Time Spent with Patient (Minutes): 60 History Interval history: Patient seen and examined at the bedside. Intubated, remains unresponsive, off sedation. BG improved, now on SSI Q6hrs. No more vomiting, BM overnight. SIVAKUMAR overnight Hospitalist Physical - Constitutional Vitals: Temp Pulse Resp BP Pulse Ox 98.1 F 65 17 122/34 100 08/21/21 11:30 08/21/21 11:37 08/21/21 10:46 08/21/21 11:37 08/21/21 11:37 General appearance: Present: no acute distress, other (Intubated, unresponsive) - EENT Eyes: Present: PERRL - Respiratory Respiratory effort: normal Respiratory: bilateral: rhonchi - Cardiovascular Rhythm: regular Heart Sounds: Present: S1 & S2 - Extremities Extremities: no ischemia, pulses intact, pulses symmetrical Extremity abnormal: edema - Peripheral Assessment Generalized Edema Type: Pitting Edema Degree: 2+ Capillary Refill: < 3 seconds Skin Temperature: Warm Peripheral Pulses: within normal limits - Abdominal General gastrointestinal: soft, non-distended, normal bowel sounds - Integumentary Integumentary: Present: warm, dry - Psychiatric Psychiatric: other (Intubated, unresponsive) - Neurologic Neurologic: other (Intubated, unresponsive) - Allied Health Allied health notes reviewed: nursing, case management HEART Score - HEART Score Troponin: Troponin T 0.042 ng/mL (0.00-0.029) H 08/19/21 04:53 Results - Labs CBC & Chem 7: 08/21/21 04:46 08/21/21 14:42 Labs: Laboratory Last Values WBC 23.9 K/mm3 (4.5-11.0) H 08/21/21 04:46 RBC 2.55 M/mm3 (3.65-5.03) L 08/21/21 04:46 Hgb 7.8 gm/dl (10.1-14.3) L D 08/21/21 04:46 Hct 23.6 % (30.3-42.9) L D 08/21/21 04:46 MCV 93 fl (79-97) 08/21/21 04:46 MCH 31 pg (28-32) 08/21/21 04:46 MCHC 33 % (30-34) 08/21/21 04:46 RDW 20.2 % (13.2-15.2) H 08/21/21 04:46 Plt Count 280 K/mm3 (140-440) 08/21/21 04:46 Lymph % (Auto) 9.9 % (13.4-35.0) L 08/20/21 04:15 Greene % (Auto) 4.5 % (0.0-7.3) 08/20/21 04:15 Eos % (Auto) 2.8 % (0.0-4.3) 08/20/21 04:15 Baso % (Auto) 0.4 % (0.0-1.8) 08/20/21 04:15 Lymph # (Auto) 1.4 K/mm3 (1.2-5.4) 08/20/21 04:15 Greene # (Auto) 0.7 K/mm3 (0.0-0.8) 08/20/21 04:15 Eos # (Auto) 0.4 K/mm3 (0.0-0.4) 08/20/21 04:15 Baso # (Auto) 0.1 K/mm3 (0.0-0.1) 08/20/21 04:15 Add Manual Diff Complete 08/21/21 04:46 Total Counted 100 08/21/21 04:46 Seg Neutrophils % Clinical Mental Health Counselor 08/21/21 04:46 Seg Neuts % (Manual) 97.0 % (40.0-70.0) H 08/21/21 04:46 Band Neutrophils % 0 % 08/21/21 04:46 Lymphocytes % (Manual) 1.0 % (13.4-35.0) L 08/21/21 04:46 Reactive Lymphs % (Man) 0 % 08/21/21 04:46 Monocytes % (Manual) 2.0 % (0.0-7.3) 08/21/21 04:46 Eosinophils % (Manual) 0 % (0.0-4.3) 08/21/21 04:46 Basophils % (Manual) 0 % (0.0-1.8) 08/21/21 04:46 Metamyelocytes % 0 % 08/21/21 04:46 Myelocytes % 0 % 08/21/21 04:46 Promyelocytes % 0 % 08/21/21 04:46 Blast Cells % 0 % 08/21/21 04:46 Nucleated RBC % Not Reportable 08/21/21 04:46 Seg Neutrophils # 12.0 K/mm3 (1.8-7.7) H 08/20/21 04:15 Seg Neutrophils # Man 23.2 K/mm3 (1.8-7.7) H 08/21/21 04:46 Band Neutrophils # 0.0 K/mm3 08/21/21 04:46 Lymphocytes # (Manual) 0.2 K/mm3 (1.2-5.4) L 08/21/21 04:46 Abs React Lymphs (Man) 0.0 K/mm3 08/21/21 04:46 Monocytes # (Manual) 0.5 K/mm3 (0.0-0.8) 08/21/21 04:46 Eosinophils # (Manual) 0.0 K/mm3 (0.0-0.4) 08/21/21 04:46 Basophils # (Manual) 0.0 K/mm3 (0.0-0.1) 08/21/21 04:46 Metamyelocytes # 0.0 K/mm3 08/21/21 04:46 Myelocytes # 0.0 K/mm3 08/21/21 04:46 Promyelocytes # 0.0 K/mm3 08/21/21 04:46 Blast Cells # 0.0 K/mm3 08/21/21 04:46 WBC Morphology Not Reportable 08/21/21 04:46 Hypersegmented Neuts Not Reportable 08/21/21 04:46 Hyposegmented Neuts Not Reportable 08/21/21 04:46 Hypogranular Neuts Not Reportable 08/21/21 04:46 Smudge Cells Not Reportable 08/21/21 04:46 Toxic Granulation Not Reportable 08/21/21 04:46 Toxic Vacuolation Not Reportable 08/21/21 04:46 Dohle Bodies Not Reportable 08/21/21 04:46 Pelger-Huet Anomaly Not Reportable 08/21/21 04:46 Dhara Rods Not Reportable 08/21/21 04:46 Platelet Estimate Consistent w auto 08/21/21 04:46 Clumped Platelets Not Reportable 08/21/21 04:46 Plt Clumps, EDTA Not Reportable 08/21/21 04:46 Large Platelets Not Reportable 08/21/21 04:46 Giant Platelets Not Reportable 08/21/21 04:46 Platelet Satelliting Not Reportable 08/21/21 04:46 Plt Morphology Comment Not Reportable 08/21/21 04:46 RBC Morphology Not Reportable 08/21/21 04:46 Dimorphic RBCs Not Reportable 08/21/21 04:46 Polychromasia Few 08/21/21 04:46 Hypochromasia 1+ 08/21/21 04:46 Poikilocytosis Not Reportable 08/21/21 04:46 Anisocytosis 1+ 08/21/21 04:46 Microcytosis Not Reportable 08/21/21 04:46 Macrocytosis Not Reportable 08/21/21 04:46 Spherocytes Not Reportable 08/21/21 04:46 Pappenheimer Bodies Not Reportable 08/21/21 04:46 Sickle Cells Not Reportable 08/21/21 04:46 Target Cells Not Reportable 08/21/21 04:46 Tear Drop Cells Not Reportable 08/21/21 04:46 Ovalocytes Not Reportable 08/21/21 04:46 Helmet Cells Not Reportable 08/21/21 04:46 [place] Bodies Not Reportable 08/21/21 04:46 [place] Rings Not Reportable 08/21/21 04:46 [place] Cells Not Reportable 08/21/21 04:46 Bite Cells Not Reportable 08/21/21 04:46 Crenated Cell Not Reportable 08/21/21 04:46 Elliptocytes Not Reportable 08/21/21 04:46 Acanthocytes (Spur) Not Reportable 08/21/21 04:46 Rouleaux Not Reportable 08/21/21 04:46 Hemoglobin C Crystals Not Reportable 08/21/21 04:46 Schistocytes Not Reportable 08/21/21 04:46 Malaria parasites Not Reportable 08/21/21 04:46 Keshav Bodies Not Reportable 08/21/21 04:46 Hem Pathologist Commnt No 08/21/21 04:46 PT 15.6 Sec. (12.2-14.9) H 08/19/21 04:53 INR 1.12 (0.87-1.13) 08/19/21 04:53 APTT 30.3 Sec. (24.2-36.6) 08/19/21 04:53 ABG pH 7.495 pH Units (7.350-7.450) H 08/21/21 08:18 ABG pCO2 34.8 mm Hg 08/21/21 08:18 ABG pO2 141.5 mm Hg (80.0-90.0) H 08/21/21 08:18 ABG HCO3 26.2 mmol/L (20.0-26.0) H 08/21/21 08:18 ABG O2 Saturation 98.9 % (95.0-99.0) 08/21/21 08:18 ABG O2 Content 11.0 (0.0-44) 08/21/21 08:18 ABG Base Excess 2.8 mmol/L (-2.0-3.0) 08/21/21 08:18 ABG Hemoglobin 7.9 gm/dl (12.0-16.0) L 08/21/21 08:18 ABG Carboxyhemoglobin 1.3 % (0.0-5.0) 08/21/21 08:18 ABG Methemoglobin 0.5 % (0.0-1.5) 08/21/21 08:18 Oxyhemoglobin 97.1 % (95.0-99.0) 08/21/21 08:18 FiO2 40 % 08/21/21 08:18 Sodium 122 mmol/L (137-145) L D 08/21/21 04:46 Potassium 4.9 mmol/L (3.6-5.0) D 08/21/21 04:46 Chloride 87.0 mmol/L (98-107) L 08/21/21 04:46 Carbon Dioxide 23 mmol/L (22-30) 08/21/21 04:46 Anion Gap 17 mmol/L 08/21/21 04:46 BUN 23 mg/dL (7-17) H 08/21/21 04:46 Creatinine 3.8 mg/dL (0.6-1.2) H 08/21/21 04:46 Estimated GFR 11 ml/min 08/21/21 04:46 BUN/Creatinine Ratio 6 % 08/21/21 04:46 Glucose 166 mg/dL (65-100) H 08/21/21 04:46 POC Glucose 141 mg/dL (70-105) H 08/21/21 11:10 Lactic Acid 3.40 mmol/L (0.7-2.0) H* 08/20/21 04:15 Calcium 6.8 mg/dL (8.4-10.2) L 08/21/21 04:46 Phosphorus 1.60 mg/dL (2.5-4.5) L 08/21/21 04:46 Magnesium 1.60 mg/dL (1.7-2.3) L 08/21/21 04:46 Ferritin 1787.0 ng/mL (10.0-200.0) H 08/21/21 04:46 Total Bilirubin 0.30 mg/dL (0.1-1.2) 08/20/21 04:15 AST 17 units/L (5-40) 08/20/21 04:15 ALT 7 units/L (7-56) 08/20/21 04:15 Alkaline Phosphatase 85 units/L (35-129) 08/20/21 04:15 Ammonia 10.0 umol/L (25-60) L 08/19/21 04:53 Total Creatine Kinase 105 units/L (30-135) 08/19/21 04:53 CK-MB (CK-2) 1.1 ng/mL (0.0-4.0) 08/19/21 04:53 CK-MB (CK-2) Rel Index 1.0 (0-4) 08/19/21 04:53 Troponin T 0.042 ng/mL (0.00-0.029) H 08/19/21 04:53 C-Reactive Protein 10.60 mg/dL (0.00-1.30) H 08/21/21 04:46 NT-Pro-B Natriuret Pep 66703 pg/mL (0-900) H 08/19/21 06:01 Total Protein 4.9 g/dL (6.3-8.2) L 08/20/21 04:15 Albumin 2.6 g/dL (3.9-5) L 08/20/21 04:15 Albumin/Globulin Ratio 1.1 % 08/20/21 04:15 Triglycerides 122 mg/dL (2-149) 08/19/21 04:53 Cholesterol 160 mg/dL (50-199) 02/16/22 04:53 LDL Cholesterol Direct 88 mg/dL (50-130) 08/19/21 04:53 HDL Cholesterol 47 mg/dL (40-59) 08/19/21 04:53 Cholesterol/HDL Ratio 3.40 % 08/19/21 04:53 TSH 4.850 mlU/mL (0.270-4.200) H 08/19/21 08:30 Random Vancomycin 17.8 ug/mL (0-40.0) 08/21/21 04:46 Coronavirus (PCR) Positive (Negative) A 08/19/21 Unknown Microbiology: Microbiology 08/19/21 06:01 Peripheral/Venous Blood Culture - Preliminary NO GROWTH AFTER 48 HOURS 08/19/21 06:01 Peripheral/Venous Blood Culture - Preliminary NO GROWTH AFTER 48 HOURS 08/19/21 05:55 Tracheal Aspirate Sputum Culture - Preliminary Active Medications - Current Medications Current Medications: Generic Name Dose Route Start Last Admin Trade Name Freq PRN Reason Stop Dose Admin Acetaminophen 650 mg 08/19/21 10:00 Acetaminophen 325 Mg Tab PO Q6H PRN Pain MILD(1-3)/Fever >100.5/MEHTA Albuterol 2.5 mg 08/19/21 11:00 Albuterol 2.5 Mg/3 Ml Nebu IH Q3HRT PRN Shortness Of Breath Albuterol/Ipratropium 1 ampul 08/19/21 14:00 08/21/21 08:14 Ipratropium/Albuterol Sulfate 3 Ml Ampul.Neb IH 1 ampul Q6HRT ANAHY Administration Budesonide 0.5 mg 08/19/21 20:00 08/21/21 08:14 Budesonide 0.5 Mg/2 Ml Nebu IH 0.5 mg Q12HRT ANAHY Administration Cholecalciferol 1,000 unit 08/19/21 10:00 08/21/21 09:15 Cholecalciferol (Vit D3) 1000 Unit (25 Mcg) Tab PO 1,000 unit QDAY ANAHY Administration Dextrose 0 ml 08/19/21 09:30 08/20/21 11:28 Dextrose 10% *Hypoglycemia IV 50 ml PRN PRN Administration Hypoglycemia Famotidine 20 mg 08/19/21 10:00 08/21/21 09:15 Famotidine 20 Mg Tab PO 20 mg QAM ANAHY Administration Fentanyl 50 mcg 08/20/21 10:03 Fentanyl 100 Mcg/2 Ml Inj IV Q2HR PRN For CPOT greater than 3 Gabapentin 300 mg 08/19/21 10:00 08/21/21 09:15 Gabapentin 300 Mg Cap PO 300 mg BID ANAHY Administration Heparin Sodium (Porcine) 5,000 unit 08/19/21 11:00 08/21/21 06:01 Heparin 5,000 Unit/1 Ml Vial SUB-Q 5,000 unit Q8HR ANAHY Administration Sodium Chloride 100 mls @ 999 mls/hr 08/19/21 11:14 Nacl 0.9% IV LEVI PRN Hypotension Cefepime HCl 1 gm in 100 mls @ 200 mls/hr 08/19/21 18:00 08/20/21 17:55 Cefepime/Ns 1 Gm/100 Ml IV 200 mls/hr QPM ANAHY Administration Protocol Dextrose 1,000 mls @ 50 mls/hr 08/20/21 11:00 08/20/21 15:52 D10w IV 0 mls/hr DIRECT ANAHY Infusion Sodium Chloride 1,000 mls @ 50 mls/hr 08/21/21 09:00 08/21/21 09:24 Nacl 0.9% 1000 Ml IV 08/22/21 04:59 50 mls/hr DIRECT ANAHY Administration Magnesium Sulfate 2 gm in 50 mls @ 25 mls/hr 08/21/21 10:00 08/21/21 09:24 Magnesium Sulfate 2gm/50ml IV 08/21/21 11:59 25 mls/hr ONCE ONE Administration Sodium Phosphate 15 mmol/ 255 mls @ 125 mls/hr 08/21/21 10:00 08/21/21 09:38 Sodium Chloride IV 08/21/21 12:02 125 mls/hr ONCE ONE Administration Vancomycin HCl 750 mg/ Sodium 265 mls @ 166.667 mls/hr 08/21/21 22:00 Chloride IV 08/21/21 23:35 ONCE ONE Insulin Human Lispro 0 unit 08/19/21 12:00 08/21/21 06:00 Insulin Lispro 100 Unit/Ml SUB-Q Not Given Q6HR ANAHY Protocol Metoclopramide HCl 5 mg 08/20/21 12:00 08/21/21 04:13 Metoclopramide 10 Mg/2 Ml Inj IV 5 mg Q8H ANAHY Administration Midodrine 10 mg 08/20/21 12:00 08/21/21 08:01 Midodrine 5 Mg Tab PO 10 mg TID@0800,1200,1600 ANAHY Administration Mirtazapine 15 mg 08/20/21 10:02 Mirtazapine 15 Mg Tab PO QHS PRN Sleep Naloxone HCl 0.1 mg 08/19/21 09:30 Naloxone 0.4 Mg/1 Ml Inj IV Q2MIN PRN Res Rate </= 8 or 02 SAT < 92% Senna 17.6 mg 08/20/21 22:00 08/20/21 21:55 Sennosides Oral Liqd 8.8 Mg/5 Ml Oral Liqd PO 17.6 mg QHS ANAHY Administration Simple Syrup 30 ml 08/19/21 17:44 08/20/21 03:48 Simple Syrup 15 Ml FEEDTUBE 30 ml PRN PRN Administration Hypoglycemia Sodium Chloride 10 ml 08/19/21 10:00 08/21/21 09:15 Sodium Chloride 0.9% 10 Ml Flush Syringe IV 10 ml BID ANAHY Administration Sodium Chloride 10 ml 08/19/21 09:30 Sodium Chloride 0.9% 10 Ml Flush Syringe IV PRN PRN LINE FLUSH Zinc Sulfate 220 mg 08/19/21 11:00 08/21/21 09:15 Zinc Sulfate 220 Mg Cap PO 220 mg BID ANAHY Administration Nutrition/Malnutrition Assess - Dietary Evaluation Nutrition/Malnutrition Findings: Nutrition Notes Start: 08/19/21 14:18 Freq: Status: Active Protocol: Document 08/19/21 14:18 MIGUEL ANGEL (Rec: 08/19/21 14:35 MIGUEL ANGEL [id number]) Nutrition Notes Need for Assessment generated from: MD Order Initial or Follow up Assessment Current Diagnosis CKD (stage V CKD),Diabetes, Hypertension,Respiratory Failure,Hyperlipidemia Other Pertinent Diagnosis ESRD+HD, Metabolic Encephalopathy. Current Diet NPO. TF-Nepro w/CARBSTEADY @ 28 ml/hr (from D 08/19). Labs/Tests 08/19: Na 132, Cl 96.8, Crea 3 .6, Glu 599. Pertinent Medications 08/19: Vit D3, ZnSO4, others nutritionally unremarkable. 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 Pt on Mechanical Ventilation. Pt seems to present COVID-19 sequels. Percent of energy/protein needs met: Prescribed TF-Nepro w/ CARBSTEADY @ 28 ml/hr provides for energy/protein needs (1, 197 Kcal/54 g) during LOS, 100 % Kcal; 86% AA. Burn Absent Trauma Absent GI Symptoms None Food Allergy No Skin Integrity/Comment Sacral pressure wound stage I Current % PO Other Minimum of two criteria No #1 Nutrition Diagnosis Inadequate oral intake Etiology Pt on Mechanical Ventilation As Evidenced by Signs and Symptoms Pt on NPO. Is patient on ventilator? Yes Is Patient Ambulatory and/or Out of Bed No REE-([facility]-confined to bed) 1389.180 Kcal/Kg value to use for calculation 16 Approximate Energy Requirements Using 1197 kcal/Kg Calculation Used for Recommendations Kcal/kg Additional Notes Protein: 1-1.2 g/Kg; 63-76 g/ day. Fluids: 1 ml/Kcal, or as per MD. Nutrition Intervention Nutrition Support: Start Nepro w/CARBSTEADY @ 28 ml/hr. Flush: 100 ml water Q 4 hr, or as per MD. Kcal 1,197 Protein (gm) 54 Carbohydrates (gm) 107 Fat (gm) 64 Fluid (mL) 485 Fiber (gm) 8 % RDI: 100% Kcal; 86% AA. Goal #1 Provide at least 75% of energy /protein needs through Enteral Feeding during LOS. Goal #2 Maintain body weight within +/ -3% of admission body weight during LOS. Follow-Up By: 08/22/21 Additional Comments Continue monitoring TF tolerance and BM. <JENNIFER CARRILLO E - Last Filed: 08/22/21 07:03> Assessment and Plan Assessment and plan: I saw and evaluated the patient. I agree with the findings and the plan of care as documented in the Nurse Practitioner's~note, with the following corrections and additions. Had extensive discussion with family. They stated that if it comes to it, to proceed with Trach and PEG. Continue full code. 30 MINS ADVANCE CARE PLAN COUNSELLING additional was done, Case management involved in conference call. Hospitalist Physical - Constitutional Vitals: Temp Pulse Resp BP Pulse Ox 99.1 F 80 17 130/31 100 08/22/21 04:00 08/22/21 05:15 08/22/21 05:15 08/22/21 05:15 08/22/21 05:15 HEART Score - HEART Score Troponin: Troponin T 0.042 ng/mL (0.00-0.029) H 08/19/21 04:53 Results - Labs CBC & Chem 7: 08/22/21 05:09 08/22/21 05:09 Labs: Laboratory Last Values WBC 25.0 K/mm3 (4.5-11.0) H 08/22/21 05:09 RBC 2.55 M/mm3 (3.65-5.03) L 08/22/21 05:09 Hgb 7.8 gm/dl (10.1-14.3) L 08/22/21 05:09 Hct 23.5 % (30.3-42.9) L 08/22/21 05:09 MCV 92 fl (79-97) 08/22/21 05:09 MCH 30 pg (28-32) 08/22/21 05:09 MCHC 33 % (30-34) 08/22/21 05:09 RDW 21.1 % (13.2-15.2) H 08/22/21 05:09 Plt Count 299 K/mm3 (140-440) 08/22/21 05:09 Lymph % (Auto) 9.9 % (13.4-35.0) L 08/20/21 04:15 [place] % (Auto) 4.5 % (0.0-7.3) 08/20/21 04:15 Eos % (Auto) 2.8 % (0.0-4.3) 08/20/21 04:15 Baso % (Auto) 0.4 % (0.0-1.8) 08/20/21 04:15 Lymph # (Auto) 1.4 K/mm3 (1.2-5.4) 08/20/21 04:15 [place] # (Auto) 0.7 K/mm3 (0.0-0.8) 08/20/21 04:15 Eos # (Auto) 0.4 K/mm3 (0.0-0.4) 08/20/21 04:15 Baso # (Auto) 0.1 K/mm3 (0.0-0.1) 08/20/21 04:15 Add Manual Diff Complete 08/21/21 04:46 Total Counted 100 08/21/21 04:46 Seg Neutrophils % Clinical Mental Health Counselor 08/21/21 04:46 Seg Neuts % (Manual) 97.0 % (40.0-70.0) H 08/21/21 04:46 Band Neutrophils % 0 % 08/21/21 04:46 Lymphocytes % (Manual) 1.0 % (13.4-35.0) L 08/21/21 04:46 Reactive Lymphs % (Man) 0 % 08/21/21 04:46 Monocytes % (Manual) 2.0 % (0.0-7.3) 08/21/21 04:46 Eosinophils % (Manual) 0 % (0.0-4.3) 08/21/21 04:46 Basophils % (Manual) 0 % (0.0-1.8) 08/21/21 04:46 Metamyelocytes % 0 % 08/21/21 04:46 Myelocytes % 0 % 08/21/21 04:46 Promyelocytes % 0 % 08/21/21 04:46 Blast Cells % 0 % 08/21/21 04:46 Nucleated RBC % Not Reportable 08/21/21 04:46 Seg Neutrophils # 12.0 K/mm3 (1.8-7.7) H 08/20/21 04:15 Seg Neutrophils # Man 23.2 K/mm3 (1.8-7.7) H 08/21/21 04:46 Band Neutrophils # 0.0 K/mm3 08/21/21 04:46 Lymphocytes # (Manual) 0.2 K/mm3 (1.2-5.4) L 08/21/21 04:46 Abs React Lymphs (Man) 0.0 K/mm3 08/21/21 04:46 Monocytes # (Manual) 0.5 K/mm3 (0.0-0.8) 08/21/21 04:46 Eosinophils # (Manual) 0.0 K/mm3 (0.0-0.4) 08/21/21 04:46 Basophils # (Manual) 0.0 K/mm3 (0.0-0.1) 08/21/21 04:46 Metamyelocytes # 0.0 K/mm3 08/21/21 04:46 Myelocytes # 0.0 K/mm3 08/21/21 04:46 Promyelocytes # 0.0 K/mm3 08/21/21 04:46 Blast Cells # 0.0 K/mm3 08/21/21 04:46 WBC Morphology Not Reportable 08/21/21 04:46 Hypersegmented Neuts Not Reportable 08/21/21 04:46 Hyposegmented Neuts Not Reportable 08/21/21 04:46 Hypogranular Neuts Not Reportable 08/21/21 04:46 Smudge Cells Not Reportable 08/21/21 04:46 Toxic Granulation Not Reportable 08/21/21 04:46 Toxic Vacuolation Not Reportable 08/21/21 04:46 Dohle Bodies Not Reportable 08/21/21 04:46 Pelger-Huet Anomaly Not Reportable 08/21/21 04:46 Dhara Rods Not Reportable 08/21/21 04:46 Platelet Estimate Consistent w auto 08/21/21 04:46 Clumped Platelets Not Reportable 08/21/21 04:46 Plt Clumps, EDTA Not Reportable 08/21/21 04:46 Large Platelets Not Reportable 08/21/21 04:46 Giant Platelets Not Reportable 08/21/21 04:46 Platelet Satelliting Not Reportable 08/21/21 04:46 Plt Morphology Comment Not Reportable 08/21/21 04:46 RBC Morphology Not Reportable 08/21/21 04:46 Dimorphic RBCs Not Reportable 08/21/21 04:46 Polychromasia Few 08/21/21 04:46 Hypochromasia 1+ 08/21/21 04:46 Poikilocytosis Not Reportable 08/21/21 04:46 Anisocytosis 1+ 08/21/21 04:46 Microcytosis Not Reportable 08/21/21 04:46 Macrocytosis Not Reportable 08/21/21 04:46 Spherocytes Not Reportable 08/21/21 04:46 Pappenheimer Bodies Not Reportable 08/21/21 04:46 Sickle Cells Not Reportable 08/21/21 04:46 Target Cells Not Reportable 08/21/21 04:46 Tear Drop Cells Not Reportable 08/21/21 04:46 Ovalocytes Not Reportable 08/21/21 04:46 Helmet Cells Not Reportable 08/21/21 04:46 [place] Bodies Not Reportable 08/21/21 04:46 [place] Rings Not Reportable 08/21/21 04:46 [place] Cells Not Reportable 08/21/21 04:46 Bite Cells Not Reportable 08/21/21 04:46 Crenated Cell Not Reportable 08/21/21 04:46 Elliptocytes Not Reportable 08/21/21 04:46 Acanthocytes (Spur) Not Reportable 08/21/21 04:46 Rouleaux Not Reportable 08/21/21 04:46 Hemoglobin C Crystals Not Reportable 08/21/21 04:46 Schistocytes Not Reportable 08/21/21 04:46 Malaria parasites Not Reportable 08/21/21 04:46 Keshav Bodies Not Reportable 08/21/21 04:46 Hem Pathologist Commnt No 08/21/21 04:46 PT 15.6 Sec. (12.2-14.9) H 08/19/21 04:53 INR 1.12 (0.87-1.13) 08/19/21 04:53 APTT 30.3 Sec. (24.2-36.6) 08/19/21 04:53 ABG pH 7.513 pH Units (7.350-7.450) H 08/22/21 05:40 ABG pCO2 32.4 mm Hg 08/22/21 05:40 ABG pO2 86.3 mm Hg (80.0-90.0) 08/22/21 05:40 ABG HCO3 25.4 mmol/L (20.0-26.0) 08/22/21 05:40 ABG O2 Saturation 97.8 % (95.0-99.0) 08/22/21 05:40 ABG O2 Content 11.0 (0.0-44) 08/21/21 08:18 ABG Base Excess 2.6 mmol/L (-2.0-3.0) 08/22/21 05:40 ABG Hemoglobin 8.6 gm/dl (12.0-16.0) L 08/22/21 05:40 ABG Carboxyhemoglobin 1.4 % (0.0-5.0) 08/22/21 05:40 ABG Methemoglobin 0.3 % (0.0-1.5) 08/22/21 05:40 Oxyhemoglobin 96.1 % (95.0-99.0) 08/22/21 05:40 FiO2 30 % 08/22/21 05:40 Sodium 135 mmol/L (137-145) L D 08/22/21 05:09 Potassium 3.9 mmol/L (3.6-5.0) D 08/22/21 05:09 Chloride 99.4 mmol/L (98-107) 08/22/21 05:09 Carbon Dioxide 24 mmol/L (22-30) 08/22/21 05:09 Anion Gap 16 mmol/L 08/22/21 05:09 BUN 20 mg/dL (7-17) H 08/22/21 05:09 Creatinine 2.9 mg/dL (0.6-1.2) H 08/22/21 05:09 Estimated GFR 15 ml/min 08/22/21 05:09 BUN/Creatinine Ratio 7 % 08/22/21 05:09 Glucose 95 mg/dL (65-100) 08/22/21 05:09 POC Glucose 83 mg/dL (70-105) 08/22/21 05:25 Lactic Acid 3.40 mmol/L (0.7-2.0) H* 08/20/21 04:15 Calcium 7.6 mg/dL (8.4-10.2) L 08/22/21 05:09 Phosphorus 1.40 mg/dL (2.5-4.5) L D 08/22/21 05:09 Magnesium 2.20 mg/dL (1.7-2.3) 08/22/21 05:09 Ferritin 1787.0 ng/mL (10.0-200.0) H 08/21/21 04:46 Total Bilirubin 0.30 mg/dL (0.1-1.2) 08/20/21 04:15 AST 17 units/L (5-40) 08/20/21 04:15 ALT 7 units/L (7-56) 08/20/21 04:15 Alkaline Phosphatase 85 units/L (35-129) 08/20/21 04:15 Ammonia 10.0 umol/L (25-60) L 08/19/21 04:53 Total Creatine Kinase 105 units/L (30-135) 08/19/21 04:53 CK-MB (CK-2) 1.1 ng/mL (0.0-4.0) 08/19/21 04:53 CK-MB (CK-2) Rel Index 1.0 (0-4) 08/19/21 04:53 Troponin T 0.042 ng/mL (0.00-0.029) H 08/19/21 04:53 C-Reactive Protein 10.60 mg/dL (0.00-1.30) H 08/21/21 04:46 NT-Pro-B Natriuret Pep 40247 pg/mL (0-900) H 08/19/21 06:01 Total Protein 4.9 g/dL (6.3-8.2) L 08/20/21 04:15 Albumin 2.6 g/dL (3.9-5) L 08/20/21 04:15 Albumin/Globulin Ratio 1.1 % 08/20/21 04:15 Triglycerides 122 mg/dL (2-149) 08/19/21 04:53 Cholesterol 160 mg/dL (50-199) 08/19/21 04:53 LDL Cholesterol Direct 88 mg/dL (50-130) 08/19/21 04:53 HDL Cholesterol 47 mg/dL (40-59) 08/19/21 04:53 Cholesterol/HDL Ratio 3.40 % 08/19/21 04:53 TSH 4.850 mlU/mL (0.270-4.200) H 08/19/21 08:30 Random Vancomycin 17.8 ug/mL (0-40.0) 08/21/21 04:46 Coronavirus (PCR) Positive (Negative) A 08/19/21 Unknown Microbiology: Microbiology 08/19/21 06:01 Peripheral/Venous Blood Culture - Preliminary NO GROWTH AFTER 72 HOURS 08/19/21 06:01 Peripheral/Venous Blood Culture - Preliminary NO GROWTH AFTER 72 HOURS 08/19/21 05:55 Tracheal Aspirate Sputum Culture - Final Active Medications - Current Medications Current Medications: Generic Name Dose Route Start Last Admin Trade Name Freq PRN Reason Stop Dose Admin Acetaminophen 650 mg 08/19/21 10:00 Acetaminophen 325 Mg Tab PO Q6H PRN Pain MILD(1-3)/Fever >100.5/MEHTA Albuterol 2.5 mg 08/19/21 11:00 Albuterol 2.5 Mg/3 Ml Nebu IH Q3HRT PRN Shortness Of Breath Albuterol/Ipratropium 1 ampul 08/19/21 14:00 08/22/21 05:29 Ipratropium/Albuterol Sulfate 3 Ml Ampul.Neb IH Not Given Q6HRT ANAHY Budesonide 0.5 mg 08/19/21 20:00 08/21/21 20:59 Budesonide 0.5 Mg/2 Ml Nebu IH 0.5 mg Q12HRT ANAHY Administration Cholecalciferol 1,000 unit 08/19/21 10:00 08/21/21 09:15 Cholecalciferol (Vit D3) 1000 Unit (25 Mcg) Tab PO 1,000 unit QDAY ANAHY Administration Dextrose 0 ml 08/19/21 09:30 08/20/21 11:28 Dextrose 10% *Hypoglycemia IV 50 ml PRN PRN Administration Hypoglycemia Famotidine 20 mg 08/19/21 10:00 08/21/21 09:15 Famotidine 20 Mg Tab PO 20 mg QAM ANAHY Administration Fentanyl 50 mcg 08/20/21 10:03 Fentanyl 100 Mcg/2 Ml Inj IV Q2HR PRN For CPOT greater than 3 Gabapentin 300 mg 08/19/21 10:00 08/21/21 22:32 Gabapentin 300 Mg Cap PO 300 mg BID ANAHY Administration Heparin Sodium (Porcine) 5,000 unit 08/19/21 11:00 08/22/21 05:33 Heparin 5,000 Unit/1 Ml Vial SUB-Q 5,000 unit Q8HR ANAHY Administration Sodium Chloride 100 mls @ 999 mls/hr 08/19/21 11:14 Nacl 0.9% IV LEVI PRN Hypotension Dextrose 1,000 mls @ 50 mls/hr 08/20/21 11:00 08/20/21 15:52 D10w IV 0 mls/hr DIRECT ANAHY Infusion Meropenem/Sodium Chloride 1 gram in 100 mls @ 100 mls/hr 08/21/21 18:00 08/21/21 17:28 Merrem/Ns 1 Gram/100 Ml IV 100 mls/hr QPM ANAHY Administration Protocol Insulin Human Lispro 0 unit 08/19/21 12:00 08/22/21 05:34 Insulin Lispro 100 Unit/Ml SUB-Q Not Given Q6HR [facility] Protocol Metoclopramide HCl 5 mg 08/20/21 12:00 08/22/21 04:18 Metoclopramide 10 Mg/2 Ml Inj IV 5 mg Q8H ANAHY Administration Midodrine 10 mg 08/20/21 12:00 08/21/21 17:00 Midodrine 5 Mg Tab PO 10 mg TID@0800,1200,1600 ANAHY Administration Mirtazapine 15 mg 08/20/21 10:02 Mirtazapine 15 Mg Tab PO QHS PRN Sleep Naloxone HCl 0.1 mg 08/19/21 09:30 Naloxone 0.4 Mg/1 Ml Inj IV Q2MIN PRN Res Rate </= 8 or 02 SAT < 92% Senna 17.6 mg 08/20/21 22:00 08/21/21 22:32 Sennosides Oral Liqd 8.8 Mg/5 Ml Oral Liqd PO 17.6 mg QHS ANAHY Administration Simple Syrup 30 ml 08/19/21 17:44 08/20/21 03:48 Simple Syrup 15 Ml FEEDTUBE 30 ml PRN PRN Administration Hypoglycemia Sodium Chloride 10 ml 08/19/21 10:00 08/21/21 22:34 Sodium Chloride 0.9% 10 Ml Flush Syringe IV 10 ml BID ANAHY Administration Sodium Chloride 10 ml 08/19/21 09:30 Sodium Chloride 0.9% 10 Ml Flush Syringe IV PRN PRN LINE FLUSH Zinc Sulfate 220 mg 08/19/21 11:00 08/21/21 22:39 Zinc Sulfate 220 Mg Cap PO 220 mg BID ANAHY Administration Nutrition/Malnutrition Assess - Dietary Evaluation Nutrition/Malnutrition Findings: Nutrition Notes Start: 08/19/21 14:18 Freq: Status: Active Protocol: Document 08/19/21 14:18 MIGUEL ANGEL (Rec: 08/19/21 14:35 MIGUEL ANGEL [id number]) Nutrition Notes Need for Assessment generated from: MD Order Initial or Follow up Assessment Current Diagnosis CKD (stage V CKD),Diabetes, Hypertension,Respiratory Failure,Hyperlipidemia Other Pertinent Diagnosis ESRD+HD, Metabolic Encephalopathy. Current Diet NPO. TF-Nepro w/CARBSTEADY @ 28 ml/hr (from D 08/19). Labs/Tests 08/19: Na 132, Cl 96.8, Crea 3 .6, Glu 599. Pertinent Medications 08/19: Vit D3, ZnSO4, others nutritionally unremarkable. 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 Pt on Mechanical Ventilation. Pt seems to present COVID-19 sequels. Percent of energy/protein needs met: Prescribed TF-Nepro w/ CARBSTEADY @ 28 ml/hr provides for energy/protein needs (1, 197 Kcal/54 g) during LOS, 100 % Kcal; 86% AA. Burn Absent Trauma Absent GI Symptoms None Food Allergy No Skin Integrity/Comment Sacral pressure wound stage I Current % PO Other Minimum of two criteria No #1 Nutrition Diagnosis Inadequate oral intake Etiology Pt on Mechanical Ventilation As Evidenced by Signs and Symptoms Pt on NPO. Is patient on ventilator? Yes Is Patient Ambulatory and/or Out of Bed No REE-([facility]-confined to bed) 1389.180 Kcal/Kg value to use for calculation 16 Approximate Energy Requirements Using 1197 kcal/Kg Calculation Used for Recommendations Kcal/kg Additional Notes Protein: 1-1.2 g/Kg; 63-76 g/ day. Fluids: 1 ml/Kcal, or as per MD. Nutrition Intervention Nutrition Support: Start Nepro w/CARBSTEADY @ 28 ml/hr. Flush: 100 ml water Q 4 hr, or as per MD. Kcal 1,197 Protein (gm) 54 Carbohydrates (gm) 107 Fat (gm) 64 Fluid (mL) 485 Fiber (gm) 8 % RDI: 100% Kcal; 86% AA. Goal #1 Provide at least 75% of energy /protein needs through Enteral Feeding during LOS. Goal #2 Maintain body weight within +/ -3% of admission body weight during LOS. Follow-Up By: 08/22/21 Additional Comments Continue monitoring TF tolerance and BM.
--- NOTE | 2021-08-21 13:30 | Progress Note ---
Assessment and Plan Patient is an 86-year-old female with a past medical history of end-stage renal disease on hemodialysis, hypertension, diabetes, and recent COVID-19 infection who was brought to the ED today after the patient was found by family to be unresponsive Acute respiratory failure-pulmonology follow End-stage renal disease on hemodialysis-nephrology following Sepsis COVID-19-ID following NSTEMI suspect type II Anemia Hypoglycemia Hypomagnesemia Echo 08/19/2021-EF 40 to 45%. Mild concentric LVH. Doppler flow pattern suggests impaired LV relaxation. Right ventricular systolic function is normal. Echo bright density suspected in the right atrium. Moderate aortic stenosis. Highest mean aortic valve gradient is 21.6 mmHg. Mild aortic regurgitation. Mitral valve leaflets are thickened. Mitral valve leaflets are calcified. Moderate mitral regurgitation Echo03/2020 -Moderate concentric left ventricular hypertrophy.Left ventricular ejection fraction is 60-65%. There is moderately increased filling pressure consistent with grade 2 diastolic dysfunction. Aortic valve is tricuspid, sclerotic and focally calcified. Mild aortic stenosis. Mild to moderate aortic valve insufficiency. The left ventricular size is small. The aortic valve max velocity is 2.57 m/s. The peak gradient is 26.4 mmHg with a mean gradient of 16.0 mmHg, the left ventricle outflow tract measures 2.00 cm. CORNELIA (VTI) is 1.08 cm. Mild mitral valve regurgitation.Normal right ventricular size and wall th ickness. There is small pleural effusion in the left lateral region. There is small pleural effusion in the right lateral region.No pericardial effusion seen. Lexiscan MPI stress test 05/14/2019-normal myocardial perfusion without evidence of ischemia or prior infarction Plan: EKG shows sinus tachycardia [address] T abnormalities. No acute ischemic change. Troponins minimally elevated 0.04 Troponin elevation likely in setting of sepsis and hypoglycemia Due to renal function will avoid nephrotoxic agents including JORDANA/ ARB Will defer volume management to nephrology Continue amlodipine 10 mg p.o. daily for hypertension Continue present management We will see as needed over the weekend Patient seen in conjunction with Dr. Hernandez who agrees with this plan of care - Patient Problems (1) Acute encephalopathy Current Visit: Yes Status: Acute (2) COVID-19 Current Visit: Yes Status: Acute (3) Hypomagnesemia Current Visit: Yes Status: Acute (4) Malnutrition Current Visit: Yes Status: Acute (5) Acute metabolic encephalopathy due to hypoglycemia Current Visit: No Status: Acute (6) Acute respiratory failure with hypoxia Current Visit: No Status: Acute (7) Anemia in chronic illness Current Visit: No Status: Acute (8) ESRD (end stage renal disease) on dialysis Current Visit: No Status: Acute (9) Sepsis Current Visit: No Status: Acute Subjective Date of service: 08/21/21 Principal diagnosis: Hypoglycemia Interval history: Patient intubated and sedated Patient sinus 60s-70s on monitor with no events Objective Vital Signs Temp Pulse Pulse Pulse Pulse Resp Resp 08/21/21 12:00 67 18 08/21/21 11:46 66 18 08/21/21 11:37 65 08/21/21 11:30 98.1 F 68 18 08/21/21 11:16 67 18 08/21/21 11:00 66 18 08/21/21 10:46 69 17 08/21/21 10:30 68 18 08/21/21 10:16 69 17 08/21/21 10:00 71 18 08/21/21 09:46 71 78 19 08/21/21 09:30 76 18 08/21/21 09:16 71 18 08/21/21 09:00 72 18 08/21/21 08:46 71 18 08/21/21 08:30 73 18 08/21/21 08:16 77 15 08/21/21 08:14 79 19 08/21/21 08:06 77 08/21/21 08:00 77 18 08/21/21 07:46 77 18 08/21/21 07:36 98.6 F 08/21/21 07:30 78 18 08/21/21 07:16 83 18 08/21/21 07:00 71 17 08/21/21 06:46 74 17 08/21/21 06:30 76 18 08/21/21 06:18 19 08/21/21 06:16 79 17 08/21/21 06:00 83 21 08/21/21 05:46 85 12 08/21/21 05:30 84 15 08/21/21 05:16 85 18 08/21/21 05:00 84 18 08/21/21 04:46 83 17 08/21/21 04:30 82 17 08/21/21 04:16 78 15 08/21/21 04:00 85 17 08/21/21 03:46 79 16 08/21/21 03:35 99.6 F 08/21/21 03:30 81 18 08/21/21 03:16 80 17 08/21/21 03:00 78 16 08/21/21 02:46 78 16 08/21/21 02:30 77 19 08/21/21 02:16 79 16 08/21/21 02:12 106 H 08/21/21 02:00 82 16 08/21/21 01:46 81 17 08/21/21 01:30 84 18 08/21/21 01:16 87 18 08/21/21 01:00 85 17 08/21/21 00:46 85 17 08/21/21 00:40 88 08/21/21 00:30 81 17 08/21/21 00:16 98 H 18 08/21/21 00:00 84 19 08/20/21 23:53 98.5 F 08/20/21 23:46 87 18 08/20/21 23:30 83 19 08/20/21 23:16 80 17 08/20/21 23:00 82 16 08/20/21 22:46 86 18 08/20/21 22:30 87 20 08/20/21 22:16 88 18 08/20/21 22:14 87 18 08/20/21 22:00 96 H 16 08/20/21 21:46 85 18 08/20/21 21:30 84 17 08/20/21 21:16 80 17 08/20/21 21:00 80 18 08/20/21 20:48 85 19 08/20/21 20:46 87 20 08/20/21 20:44 87 08/20/21 20:30 76 18 08/20/21 20:16 76 17 08/20/21 20:00 99.5 F 78 19 08/20/21 19:46 75 16 08/20/21 19:30 77 17 08/20/21 19:16 74 17 08/20/21 19:00 74 18 08/20/21 18:46 76 17 08/20/21 18:30 81 17 08/20/21 18:16 85 17 08/20/21 18:00 87 16 08/20/21 17:46 82 18 08/20/21 17:30 82 14 08/20/21 17:16 86 18 08/20/21 17:00 88 18 08/20/21 16:46 100 H 17 08/20/21 16:30 100 H 18 08/20/21 16:16 101 H 17 08/20/21 16:00 106 H 14 08/20/21 15:46 107 H 16 08/20/21 15:30 106 H 17 08/20/21 15:27 105 H 08/20/21 15:16 106 H 15 08/20/21 15:00 108 H 15 08/20/21 14:46 109 H 16 08/20/21 14:30 105 H 14 08/20/21 14:16 106 H 15 08/20/21 14:00 105 H 15 08/20/21 13:46 108 H 18 08/20/21 13:30 107 H 17 Resp BP Pulse Ox 08/21/21 12:00 122/34 100 08/21/21 11:46 122/34 100 08/21/21 11:37 122/34 100 08/21/21 11:30 122/34 100 08/21/21 11:16 141/33 100 08/21/21 11:00 141/33 100 08/21/21 10:46 136/33 100 08/21/21 10:30 136/33 100 08/21/21 10:16 146/35 100 08/21/21 10:00 146/35 100 08/21/21 09:46 141/40 100 08/21/21 09:30 141/40 100 08/21/21 09:16 139/31 100 08/21/21 09:00 139/31 100 08/21/21 08:46 130/35 100 08/21/21 08:30 130/35 100 08/21/21 08:16 124/37 100 08/21/21 08:14 08/21/21 08:06 124/37 100 08/21/21 08:00 124/37 100 08/21/21 07:46 129/40 100 08/21/21 07:36 08/21/21 07:30 129/40 100 08/21/21 07:16 105/34 100 08/21/21 07:00 88/29 100 08/21/21 06:46 90/30 100 08/21/21 06:30 109/39 100 08/21/21 06:18 100 08/21/21 06:16 109/39 100 08/21/21 06:00 109/39 100 08/21/21 05:46 113/37 100 08/21/21 05:30 113/37 100 08/21/21 05:16 120/32 100 08/21/21 05:00 120/32 100 08/21/21 04:46 111/36 100 08/21/21 04:30 111/36 100 08/21/21 04:16 114/34 100 08/21/21 04:00 113/37 100 08/21/21 03:46 104/35 100 08/21/21 03:35 08/21/21 03:30 104/35 100 08/21/21 03:16 99/33 100 08/21/21 03:00 99/33 100 08/21/21 02:46 92/29 100 08/21/21 02:30 92/29 100 08/21/21 02:16 115/36 100 08/21/21 02:12 30 H 08/21/21 02:00 115/36 100 08/21/21 01:46 110/38 100 08/21/21 01:30 110/38 100 08/21/21 01:16 104/35 100 08/21/21 01:00 104/35 100 08/21/21 00:46 108/36 100 08/21/21 00:40 104/35 100 08/21/21 00:30 108/36 100 08/21/21 00:16 118/39 100 08/21/21 00:00 118/39 100 08/20/21 23:53 0222 23:46 113/40 100 0222 23:30 97/30 100 [id number] 23:16 101/31 100 [id number] 23:00 101/31 100 0222 22:46 104/30 100 0222 22:30 104/30 100 [id number] 22:16 119/45 100 [id number] 22:14 119/45 100 [id number] 22:00 119/45 100 [id number] 21:46 92/33 100 0222 21:30 92/33 100 22 21:16 106/32 100 08/20/21 21:00 106/32 100 08/20/21 20:48 08/20/21 20:46 103/37 100 08/20/21 20:44 103/37 100 08/20/21 20:30 103/37 100 08/20/21 20:16 112/36 100 08/20/21 20:00 112/36 100 08/20/21 19:46 108/32 100 08/20/21 19:30 108/32 100 08/20/21 19:16 101/28 100 08/20/21 19:00 101/28 100 08/20/21 18:46 110/35 100 08/20/21 18:30 110/35 100 08/20/21 18:16 115/42 100 08/20/21 18:00 115/42 100 08/20/21 17:46 108/35 100 08/20/21 17:30 108/35 100 08/20/21 17:16 109/37 100 08/20/21 17:00 109/37 100 08/20/21 16:46 106/41 100 08/20/21 16:30 106/41 100 08/20/21 16:16 112/43 100 08/20/21 16:00 112/43 100 08/20/21 15:46 108/47 100 08/20/21 15:30 108/47 100 08/20/21 15:27 108/47 100 08/20/21 15:16 126/48 100 08/20/21 15:00 126/48 100 08/20/21 14:46 104/40 100 08/20/21 14:30 104/40 100 08/20/21 14:16 105/43 100 08/20/21 14:00 105/43 100 08/20/21 13:46 117/42 100 08/20/21 13:30 113/46 100 - Physical Examination General: Other (Intubated and sedated) Neck: Positive: trachea midline Cardiac: Positive: Reg Rate and Rhythm Lungs: Positive: Ventilated Respirations Neuro: Positive: Other (Unable to assess due to intubation and sedation) Abdomen: Positive: Soft Skin: Negative: Rash, Suspicious Lesions, Ulceration Extremities: Present: upper extr. pulses. Absent: edema - Labs and Meds CBC 08/21/21 Range/Units 04:46 WBC 23.9 H (4.5-11.0) K/mm3 RBC 2.55 L (3.65-5.03) M/mm3 Hgb 7.8 L D (10.1-14.3) gm/dl Hct 23.6 L D (30.3-42.9) % Plt Count 280 (140-440) K/mm3 Comprehensive Metabolic Panel 08/21/21 Range/Units 04:46 Sodium 122 L D (137-145) mmol/L Potassium 4.9 D (3.6-5.0) mmol/L Chloride 87.0 L (98-107) mmol/L Carbon Dioxide 23 (22-30) mmol/L BUN 23 H (7-17) mg/dL Creatinine 3.8 H (0.6-1.2) mg/dL Glucose 166 H (65-100) mg/dL Calcium 6.8 L (8.4-10.2) mg/dL - Imaging and Cardiology Echo: report reviewed - Telemetry EKG Rhythm: Sinus Rhythm - EKG Sinus rhythms and dysrhythmias: sinus tachycardia Repolarization changes or abnormalities: nonspecific abnormality, ST segment, and/or T wave
--- NOTE | 2021-08-21 14:24 | Progress Note ---
Assessment and Plan Cultures: 08/19/2021 blood culture: No growth 08/19/2021 tracheal aspirate culture: Light growth of usual respiratory anastacia 08/19/2021 COVID-19 PCR: Positive A/P: 86-year-old female with diabetes, ESRD on HD, recently hospitalized for COVID- 19, was treated with steroids, did not receive Remdesivir due to her ESRD, was hypoxic but gradually weaned to room air at the time of discharge has now been readmitted after being found unresponsive and noted to be severely hypoglycemic with blood sugar < 20 mg/dl. #Recent COVID-19 pneumonia: Treated with steroids during previous admission, Remdesivir not indicated due to renal failure. CXR with b/l airspace opacities without much interval change, likely represents COVID-19 sequelae, might take a while before imaging shows improvement. Ferritin 1787, NT proBNP 25335, CRP 10.6. Possibility of HCAP. Continue empiric abx. #Acute hypoxic respiratory failure: Due to above. #ESRD on HD: Renally adjust antibiotics #Acute encephalopathy: Likely metabolic given severe hypoglycemia Recs: -Given worsening leukocytosis, not a candidate for Tocilizumab -Cefepime switched to meropenem -continue renally dosed vancomycin -Poor prognosis Allyssa Riddle MD, FACP, [facility] O: [phone] F: [phone] Subjective Date of service: 08/21/21 Principal diagnosis: Hypoglycemia Interval history: No fever. Remains on the vent. Ferritin 1787, NT proBNP 37528, CRP 10.6 Objective - Exam Narrative Exam: Physical Exam: Constitutional: intubated, on the vent Head, Ears, Nose: Normocephalic, atraumatic. External ears, nose normal Eyes: Conjunctivae/corneas clear. No icterus. No ptosis. Neck: intubated Oral: intubated Cardiovascular: S1, S2 + Respiratory: AE fair GI: Soft, bowel sounds + Musculoskeletal: No pedal edema, no cyanosis. Skin: No rash or abscess Hem/Lymphatic: No palpable cervical or supraclavicular nodes. No lymphangitis Psych: no agitation Neurological: unresponsive, intubated, on the vent, exam limited - Constitutional Vitals: Vital Signs Temp Pulse Resp BP Pulse Ox 98.1 F 67 18 122/34 100 02/18/22 11:30 08/21/21 12:00 08/21/21 12:00 08/21/21 12:00 08/21/21 12:00 Temperature -Last 24 Hours Temperature 98.1 F Temperature 98.6 F Temperature 99.6 F Temperature 98.5 F Temperature 99.5 F - Labs CBC & Chem 7: 08/21/21 04:46 08/21/21 04:46 Labs: Abnormal lab results 08/19/21 08/20/21 08/20/21 Range/Units 05:35 15:47 17:53 WBC (4.5-11.0) K/mm3 RBC (3.65-5.03) M/mm3 Hgb (10.1-14.3) gm/dl Hct (30.3-42.9) % RDW (13.2-15.2) % Seg Neuts % (Manual) (40.0-70.0) % Lymphocytes % (Manual) (13.4-35.0) % Seg Neutrophils # Man (1.8-7.7) K/mm3 Lymphocytes # (Manual) (1.2-5.4) K/mm3 ABG pH 7.520 H (7.350-7.450) pH Units ABG pO2 152.6 H (80.0-90.0) mm Hg ABG HCO3 26.3 H (20.0-26.0) mmol/L ABG Base Excess 3.4 H (-2.0-3.0) mmol/L ABG Hemoglobin 7.9 L (12.0-16.0) gm/dl Sodium (137-145) mmol/L Chloride (98-107) mmol/L BUN (7-17) mg/dL Creatinine (0.6-1.2) mg/dL Glucose (65-100) mg/dL POC Glucose 204 H 223 H (70-105) mg/dL Calcium (8.4-10.2) mg/dL Phosphorus (2.5-4.5) mg/dL Magnesium (1.7-2.3) mg/dL Ferritin (10.0-200.0) ng/mL C-Reactive Protein (0.00-1.30) mg/dL 08/20/21 08/21/21 08/21/21 Range/Units 23:19 04:46 04:46 WBC 23.9 H (4.5-11.0) K/mm3 RBC 2.55 L (3.65-5.03) M/mm3 Hgb 7.8 L D (10.1-14.3) gm/dl Hct 23.6 L D (30.3-42.9) % RDW 20.2 H (13.2-15.2) % Seg Neuts % (Manual) 97.0 H (40.0-70.0) % Lymphocytes % (Manual) 1.0 L (13.4-35.0) % Seg Neutrophils # Man 23.2 H (1.8-7.7) K/mm3 Lymphocytes # (Manual) 0.2 L (1.2-5.4) K/mm3 ABG pH (7.350-7.450) pH Units ABG pO2 (80.0-90.0) mm Hg ABG HCO3 (20.0-26.0) mmol/L ABG Base Excess (-2.0-3.0) mmol/L ABG Hemoglobin (12.0-16.0) gm/dl Sodium 122 L D (137-145) mmol/L Chloride 87.0 L (98-107) mmol/L BUN 23 H (7-17) mg/dL Creatinine 3.8 H (0.6-1.2) mg/dL Glucose 166 H (65-100) mg/dL POC Glucose 217 H (70-105) mg/dL Calcium 6.8 L (8.4-10.2) mg/dL Phosphorus 1.60 L (2.5-4.5) mg/dL Magnesium 1.60 L (1.7-2.3) mg/dL Ferritin (10.0-200.0) ng/mL C-Reactive Protein 10.60 H (0.00-1.30) mg/dL 08/21/21 08/21/21 08/21/21 Range/Units 04:46 05:11 08:18 WBC (4.5-11.0) K/mm3 RBC (3.65-5.03) M/mm3 Hgb (10.1-14.3) gm/dl Hct (30.3-42.9) % RDW (13.2-15.2) % Seg Neuts % (Manual) (40.0-70.0) % Lymphocytes % (Manual) (13.4-35.0) % Seg Neutrophils # Man (1.8-7.7) K/mm3 Lymphocytes # (Manual) (1.2-5.4) K/mm3 ABG pH 7.495 H (7.350-7.450) pH Units ABG pO2 141.5 H (80.0-90.0) mm Hg ABG HCO3 26.2 H (20.0-26.0) mmol/L ABG Base Excess (-2.0-3.0) mmol/L ABG Hemoglobin 7.9 L (12.0-16.0) gm/dl Sodium (137-145) mmol/L Chloride (98-107) mmol/L BUN (7-17) mg/dL Creatinine (0.6-1.2) mg/dL Glucose (65-100) mg/dL POC Glucose 151 H (70-105) mg/dL Calcium (8.4-10.2) mg/dL Phosphorus (2.5-4.5) mg/dL Magnesium (1.7-2.3) mg/dL Ferritin 1787.0 H (10.0-200.0) ng/mL C-Reactive Protein (0.00-1.30) mg/dL 08/21/21 Range/Units 11:10 WBC (4.5-11.0) K/mm3 RBC (3.65-5.03) M/mm3 Hgb (10.1-14.3) gm/dl Hct (30.3-42.9) % RDW (13.2-15.2) % Seg Neuts % (Manual) (40.0-70.0) % Lymphocytes % (Manual) (13.4-35.0) % Seg Neutrophils # Man (1.8-7.7) K/mm3 Lymphocytes # (Manual) (1.2-5.4) K/mm3 ABG pH (7.350-7.450) pH Units ABG pO2 (80.0-90.0) mm Hg ABG HCO3 (20.0-26.0) mmol/L ABG Base Excess (-2.0-3.0) mmol/L ABG Hemoglobin (12.0-16.0) gm/dl Sodium (137-145) mmol/L Chloride (98-107) mmol/L BUN (7-17) mg/dL Creatinine (0.6-1.2) mg/dL Glucose (65-100) mg/dL POC Glucose 141 H (70-105) mg/dL Calcium (8.4-10.2) mg/dL Phosphorus (2.5-4.5) mg/dL Magnesium (1.7-2.3) mg/dL Ferritin (10.0-200.0) ng/mL C-Reactive Protein (0.00-1.30) mg/dL
[2021-08-21 15:15] LABS: Calcium 6.7 mg/dL (8.4-10.2)
--- NOTE | 2021-08-21 15:57 | Progress Note ---
Assessment and Plan Acute Hypoxemic Respiratory Failure on MVS -Persitent hypoglycemia -h/o COVID Pneumonia -Possible Aspiration -Sepsis -Leukocytosis -Acute Metabolic Encephalopathy -vasopressors if needed to keep > 65 mmHg. Add midodrine and monitor hemodynamics Continue to hold anti-hypertensives for now - titrate supplemental oxygen SpO2 keep 89-92% - continue Daily SAT and SBT assessment , readiness to wean - VAP bundle addressed, aspiration HOB>30 - continue lung protective strategies - continue bronchodilators with pulmonary hygiene per RT -wean per pulmonary driven protocols otherwise -Bronchodilators, steroids - continue accuchecks with glycemic control per SSI (While critically ill target blood glucose of 140-180 mg/dL; avoid hypoglycemia) Continue D10, monitro blood glucose q2 until blood glucose is consistently above 90 mg/dL - sedation prn for target RASS 0 to -1 - avoid nephrotoxins, renally dose all medications -Supportive HD and UF. Renal following -continue to avoid benzodiazepines , reduce the possibility of delirium -Follow cultures, continue antibiotics, de-escalate based on culture data and clinical response -Antibiotics per ID -Trend temperature curve and WCC - prn analgesia per CPOT score >3 -Maintenance of sleep-wake cycle, avoid delirium -continue enteral nutritional support -Stress ulcer and VTE prophylaxis ( Famotidine and Heparin) -Get transthoracic echocardiogram to evaluate LVEF and for pulmonary HTN( Patient presented with elevated BNP and elevated troponin) - Cardiology on consult; 2D Echo pending -continue mobility, off loading, and frequent turning per facility protocol to prevent pressure ulcers - Monitor hemodynamics closely - continue other care per attending / other consultants COVID SPECIFIC INTERVENTIONS - COVID-19 PCR positive Hospital medicine service is having ongoing goals of care discussions with the family CONDITION: CRITICAL PROGNOSIS: GUARDED CODE STATUS: FULL CODE The high probability of a clinically significant, sudden or life-threatening deterioration of the [respiratory, cardiovascular, renal ] system(s) required my full and direct attention, intervention and personal management. The aggregate critical care time was [35] minutes without overlap. Time includes spent on; [x] Data Review and interpretation [x] Patient assessment and monitoring of vital signs [x] Documentation [x] Medication orders and management Subjective Date of service: 08/20/21 Principal diagnosis: Hypoglycemia Interval history: This is a 86-year-old female with known past medical history of DM, ESRD on HD, HTN, who was recent hospitalized for COVID pneumonia admitted this time with severe hypoglycemia and acute hypoxemic respiratory failure requiring ventilatory support. Follow up: Acute hypoxemic respiratory failure; Acute encephalopathy; severe persistent hypoglycemia; ESRD on HD Seen and examined. Vitals, labs, medications,chart reviewed. Discussed with nursing and respiratory staff in [facility] Remains encephalopathic with soft blood pressures. Did not tolerate full HD session yesterday. She continues to be hypoglycemic- enteric nutritional support initiated. MVS: PRVC 18/300/+6/70% Objective - Exam Narrative Exam: Physical Exam: Constitutional: intubated, on the vent Head, Ears, Nose: Normocephalic, atraumatic. External ears, nose normal Eyes: Conjunctivae/corneas clear. No icterus. No ptosis. Neck: intubated Oral: intubated Cardiovascular: S1, S2 +, No murmurs Respiratory: Decreased AE bilaterally, rhonchi GI: Soft, bowel sounds + Musculoskeletal: No pedal edema, no cyanosis. Skin: No rash or abscess Hem/Lymphatic: No palpable cervical or supraclavicular nodes. No lymphangitis Psych: no agitation- on Fentanyl Neurological: unresponsive, intubated, on the vent, exam limited Vital Signs - 12hr 08/21/21 08/21/21 08/21/21 04:00 04:16 04:30 Temperature Pulse Rate 85 78 82 Pulse Rate [ Anterior Bilateral] Pulse Rate [ From Monitor] Respiratory 17 15 17 Rate Respiratory Rate [Anterior Bilateral] Blood Pressure 113/37 114/34 111/36 O2 Sat by Pulse 100 100 100 Oximetry 08/21/21 08/21/21 08/21/21 04:46 05:00 05:16 Temperature Pulse Rate 83 84 85 Pulse Rate [ Anterior Bilateral] Pulse Rate [ From Monitor] Respiratory 17 18 18 Rate Respiratory Rate [Anterior Bilateral] Blood Pressure 111/36 120/32 120/32 O2 Sat by Pulse 100 100 100 Oximetry 08/21/21 08/21/21 08/21/21 05:30 05:46 06:00 Temperature Pulse Rate 84 85 83 Pulse Rate [ Anterior Bilateral] Pulse Rate [ From Monitor] Respiratory 15 12 21 Rate Respiratory Rate [Anterior Bilateral] Blood Pressure 113/37 113/37 109/39 O2 Sat by Pulse 100 100 100 Oximetry 08/21/21 08/21/21 08/21/21 06:16 06:18 06:30 Temperature Pulse Rate 79 76 Pulse Rate [ Anterior Bilateral] Pulse Rate [ From Monitor] Respiratory 17 19 18 Rate Respiratory Rate [Anterior Bilateral] Blood Pressure 109/39 109/39 O2 Sat by Pulse 100 100 100 Oximetry 08/21/21 08/21/21 08/21/21 06:46 07:00 07:16 Temperature Pulse Rate 74 71 83 Pulse Rate [ Anterior Bilateral] Pulse Rate [ From Monitor] Respiratory 17 17 18 Rate Respiratory Rate [Anterior Bilateral] Blood Pressure 90/30 88/29 105/34 O2 Sat by Pulse 100 100 100 Oximetry 08/21/21 08/21/21 08/21/21 07:30 07:36 07:46 Temperature 98.6 F Pulse Rate 78 77 Pulse Rate [ Anterior Bilateral] Pulse Rate [ From Monitor] Respiratory 18 18 Rate Respiratory Rate [Anterior Bilateral] Blood Pressure 129/40 129/40 O2 Sat by Pulse 100 100 Oximetry 08/21/21 08/21/21 08/21/21 08:00 08:06 08:14 Temperature Pulse Rate 77 77 Pulse Rate [ 79 Anterior Bilateral] Pulse Rate [ From Monitor] Respiratory 18 Rate Respiratory 19 Rate [Anterior Bilateral] Blood Pressure 124/37 124/37 O2 Sat by Pulse 100 100 Oximetry 08/21/21 08/21/21 08/21/21 08:16 08:30 08:46 Temperature Pulse Rate 77 73 71 Pulse Rate [ Anterior Bilateral] Pulse Rate [ From Monitor] Respiratory 15 18 18 Rate Respiratory Rate [Anterior Bilateral] Blood Pressure 124/37 130/35 130/35 O2 Sat by Pulse 100 100 100 Oximetry 08/21/21 08/21/21 08/21/21 09:00 09:16 09:30 Temperature Pulse Rate 72 71 76 Pulse Rate [ Anterior Bilateral] Pulse Rate [ From Monitor] Respiratory 18 18 18 Rate Respiratory Rate [Anterior Bilateral] Blood Pressure 139/31 139/31 141/40 O2 Sat by Pulse 100 100 100 Oximetry 08/21/21 08/21/21 08/21/21 09:46 10:00 10:16 Temperature Pulse Rate 71 71 69 Pulse Rate [ Anterior Bilateral] Pulse Rate [ 78 From Monitor] Respiratory 19 18 17 Rate Respiratory Rate [Anterior Bilateral] Blood Pressure 141/40 146/35 146/35 O2 Sat by Pulse 100 100 100 Oximetry 08/21/21 08/21/21 08/21/21 10:30 10:46 11:00 Temperature Pulse Rate 68 69 66 Pulse Rate [ Anterior Bilateral] Pulse Rate [ From Monitor] Respiratory 18 17 18 Rate Respiratory Rate [Anterior Bilateral] Blood Pressure 136/33 136/33 141/33 O2 Sat by Pulse 100 100 100 Oximetry 08/21/21 08/21/21 08/21/21 11:16 11:30 11:37 Temperature 98.1 F Pulse Rate 67 68 65 Pulse Rate [ Anterior Bilateral] Pulse Rate [ From Monitor] Respiratory 18 18 Rate Respiratory Rate [Anterior Bilateral] Blood Pressure 141/33 122/34 122/34 O2 Sat by Pulse 100 100 100 Oximetry 08/21/21 08/21/21 08/21/21 11:46 12:00 12:16 Temperature Pulse Rate 66 66 65 Pulse Rate [ Anterior Bilateral] Pulse Rate [ From Monitor] Respiratory 18 18 16 Rate Respiratory Rate [Anterior Bilateral] Blood Pressure 122/34 122/34 141/39 O2 Sat by Pulse 100 100 100 Oximetry 08/21/21 08/21/21 08/21/21 12:30 12:46 13:00 Temperature Pulse Rate 66 66 67 Pulse Rate [ Anterior Bilateral] Pulse Rate [ From Monitor] Respiratory 18 18 19 Rate Respiratory Rate [Anterior Bilateral] Blood Pressure 119/37 119/37 134/41 O2 Sat by Pulse 100 100 100 Oximetry 08/21/21 08/21/21 08/21/21 13:16 13:30 13:46 Temperature Pulse Rate 66 67 67 Pulse Rate [ Anterior Bilateral] Pulse Rate [ From Monitor] Respiratory 19 18 18 Rate Respiratory Rate [Anterior Bilateral] Blood Pressure 134/41 141/39 141/39 O2 Sat by Pulse 100 100 100 Oximetry 08/21/21 08/21/21 08/21/21 14:00 14:16 14:30 Temperature Pulse Rate 66 63 67 Pulse Rate [ Anterior Bilateral] Pulse Rate [ From Monitor] Respiratory 17 18 18 Rate Respiratory Rate [Anterior Bilateral] Blood Pressure 141/39 152/39 156/34 O2 Sat by Pulse 100 100 100 Oximetry 08/21/21 08/21/21 08/21/21 14:46 15:00 15:16 Temperature Pulse Rate 72 68 67 Pulse Rate [ Anterior Bilateral] Pulse Rate [ From Monitor] Respiratory 17 15 19 Rate Respiratory Rate [Anterior Bilateral] Blood Pressure 156/34 148/37 148/37 O2 Sat by Pulse 100 100 100 Oximetry 08/21/21 08/21/21 15:30 15:46 Temperature Pulse Rate 65 69 Pulse Rate [ Anterior Bilateral] Pulse Rate [ From Monitor] Respiratory 18 16 Rate Respiratory Rate [Anterior Bilateral] Blood Pressure 143/36 143/36 O2 Sat by Pulse 100 100 Oximetry CBC and BMP: 08/21/21 04:46 08/21/21 14:42 ABG, PT/INR, D-dimer: ABG ABG pH 7.495 pH Units (7.350-7.450) H 08/21/21 08:18 ABG pCO2 34.8 mm Hg 08/21/21 08:18 ABG pO2 141.5 mm Hg (80.0-90.0) H 08/21/21 08:18 ABG O2 Saturation 98.9 % (95.0-99.0) 08/21/21 08:18 PT/INR, D-dimer PT 15.6 Sec. (12.2-14.9) H 08/19/21 04:53 INR 1.12 (0.87-1.13) 08/19/21 04:53 Abnormal lab findings: Abnormal Labs 08/19/21 08/19/21 08/19/21 04:53 04:53 04:53 WBC 13.0 H RBC 3.03 L Hgb 9.1 L Hct 28.8 L RDW 20.5 H Lymph % (Auto) Seg Neutrophils % Seg Neuts % (Manual) 96.0 H Lymphocytes % (Manual) 1.0 L Seg Neutrophils # Seg Neutrophils # Man 12.5 H Lymphocytes # (Manual) 0.1 L PT 15.6 H ABG pH ABG pO2 ABG HCO3 ABG O2 Saturation ABG Base Excess ABG Hemoglobin Sodium 132 L D Potassium Chloride 96.8 L BUN Creatinine 3.6 H Glucose 599 H* POC Glucose Lactic Acid Calcium 6.6 L D Phosphorus Magnesium 1.50 L Ferritin ALT 6 L Ammonia Troponin T 0.042 H C-Reactive Protein NT-Pro-B Natriuret Pep Total Protein 5.4 L Albumin 2.4 L TSH Coronavirus (PCR) 08/19/21 08/19/21 08/19/21 04:53 04:53 05:35 WBC RBC Hgb Hct RDW Lymph % (Auto) Seg Neutrophils % Seg Neuts % (Manual) Lymphocytes % (Manual) Seg Neutrophils # Seg Neutrophils # Man Lymphocytes # (Manual) PT ABG pH 7.520 H ABG pO2 152.6 H ABG HCO3 26.3 H ABG O2 Saturation ABG Base Excess 3.4 H ABG Hemoglobin 7.9 L Sodium Potassium Chloride BUN Creatinine Glucose POC Glucose Lactic Acid 2.10 H* Calcium Phosphorus Magnesium Ferritin ALT Ammonia 10.0 L Troponin T C-Reactive Protein NT-Pro-B Natriuret Pep Total Protein Albumin TSH Coronavirus (PCR) 08/19/21 08/19/21 08/19/21 06:01 07:54 08:30 WBC RBC Hgb Hct RDW Lymph % (Auto) Seg Neutrophils % Seg Neuts % (Manual) Lymphocytes % (Manual) Seg Neutrophils # Seg Neutrophils # Man Lymphocytes # (Manual) PT ABG pH ABG pO2 ABG HCO3 ABG O2 Saturation ABG Base Excess ABG Hemoglobin Sodium Potassium Chloride BUN Creatinine Glucose POC Glucose < 10 L Lactic Acid Calcium Phosphorus Magnesium Ferritin ALT Ammonia Troponin T C-Reactive Protein NT-Pro-B Natriuret Pep 01965 H Total Protein Albumin TSH 4.850 H Coronavirus (PCR) 08/19/21 08/19/21 08/19/21 08:30 08:37 09:43 WBC RBC Hgb Hct RDW Lymph % (Auto) Seg Neutrophils % Seg Neuts % (Manual) Lymphocytes % (Manual) Seg Neutrophils # Seg Neutrophils # Man Lymphocytes # (Manual) PT ABG pH ABG pO2 ABG HCO3 ABG O2 Saturation ABG Base Excess ABG Hemoglobin Sodium Potassium Chloride BUN Creatinine Glucose POC Glucose 115 H < 10 L Lactic Acid 3.20 H* Calcium Phosphorus Magnesium Ferritin ALT Ammonia Troponin T C-Reactive Protein NT-Pro-B Natriuret Pep Total Protein Albumin TSH Coronavirus (PCR) 08/19/21 08/19/21 08/19/21 10:07 11:05 11:49 WBC RBC Hgb Hct RDW Lymph % (Auto) Seg Neutrophils % Seg Neuts % (Manual) Lymphocytes % (Manual) Seg Neutrophils # Seg Neutrophils # Man Lymphocytes # (Manual) PT ABG pH ABG pO2 ABG HCO3 ABG O2 Saturation ABG Base Excess ABG Hemoglobin Sodium Potassium Chloride BUN Creatinine Glucose POC Glucose 109 H 32 L 164 H Lactic Acid Calcium Phosphorus Magnesium Ferritin ALT Ammonia Troponin T C-Reactive Protein NT-Pro-B Natriuret Pep Total Protein Albumin TSH Coronavirus (PCR) 08/19/21 08/19/21 08/19/21 14:03 16:57 18:23 WBC RBC Hgb Hct RDW Lymph % (Auto) Seg Neutrophils % Seg Neuts % (Manual) Lymphocytes % (Manual) Seg Neutrophils # Seg Neutrophils # Man Lymphocytes # (Manual) PT ABG pH ABG pO2 ABG HCO3 ABG O2 Saturation ABG Base Excess ABG Hemoglobin Sodium Potassium Chloride BUN Creatinine Glucose POC Glucose 51 L 57 L 50 L Lactic Acid Calcium Phosphorus Magnesium Ferritin ALT Ammonia Troponin T C-Reactive Protein NT-Pro-B Natriuret Pep Total Protein Albumin TSH Coronavirus (PCR) 08/19/21 08/19/21 08/19/21 19:15 21:42 23:29 WBC RBC Hgb Hct RDW Lymph % (Auto) Seg Neutrophils % Seg Neuts % (Manual) Lymphocytes % (Manual) Seg Neutrophils # Seg Neutrophils # Man Lymphocytes # (Manual) PT ABG pH ABG pO2 ABG HCO3 ABG O2 Saturation ABG Base Excess ABG Hemoglobin Sodium Potassium Chloride BUN Creatinine Glucose 26 L* POC Glucose 57 L 42 L Lactic Acid Calcium Phosphorus Magnesium Ferritin ALT Ammonia Troponin T C-Reactive Protein NT-Pro-B Natriuret Pep Total Protein Albumin TSH Coronavirus (PCR) 08/19/21 08/19/21 08/20/21 Unknown Unknown 00:37 WBC RBC Hgb Hct RDW Lymph % (Auto) Seg Neutrophils % Seg Neuts % (Manual) Lymphocytes % (Manual) Seg Neutrophils # Seg Neutrophils # Man Lymphocytes # (Manual) PT ABG pH 7.499 H ABG pO2 239.2 H ABG HCO3 27.6 H ABG O2 Saturation 99.4 H ABG Base Excess 4.3 H ABG Hemoglobin 11.3 L Sodium Potassium Chloride BUN Creatinine Glucose POC Glucose 50 L Lactic Acid Calcium Phosphorus Magnesium Ferritin ALT Ammonia Troponin T C-Reactive Protein NT-Pro-B Natriuret Pep Total Protein Albumin TSH Coronavirus (PCR) Positive A 08/20/21 08/20/21 08/20/21 01:41 02:35 03:41 WBC RBC Hgb Hct RDW Lymph % (Auto) Seg Neutrophils % Seg Neuts % (Manual) Lymphocytes % (Manual) Seg Neutrophils # Seg Neutrophils # Man Lymphocytes # (Manual) PT ABG pH ABG pO2 ABG HCO3 ABG O2 Saturation ABG Base Excess ABG Hemoglobin Sodium Potassium Chloride BUN Creatinine Glucose POC Glucose 54 L 40 L 13 L Lactic Acid Calcium Phosphorus Magnesium Ferritin ALT Ammonia Troponin T C-Reactive Protein NT-Pro-B Natriuret Pep Total Protein Albumin TSH Coronavirus (PCR) 08/20/21 08/20/21 08/20/21 04:15 04:15 04:15 WBC 14.6 H RBC Hgb Hct RDW 20.7 H Lymph % (Auto) 9.9 L Seg Neutrophils % 82.4 H Seg Neuts % (Manual) Lymphocytes % (Manual) Seg Neutrophils # 12.0 H Seg Neutrophils # Man Lymphocytes # (Manual) PT ABG pH ABG pO2 ABG HCO3 ABG O2 Saturation ABG Base Excess ABG Hemoglobin Sodium 132 L Potassium Chloride 93.8 L BUN Creatinine 2.7 H Glucose 52 L POC Glucose Lactic Acid 3.40 H* Calcium 7.1 L Phosphorus Magnesium Ferritin ALT Ammonia Troponin T C-Reactive Protein NT-Pro-B Natriuret Pep Total Protein 4.9 L Albumin 2.6 L TSH Coronavirus (PCR) 08/20/21 08/20/21 08/20/21 05:28 06:33 07:37 WBC RBC Hgb Hct RDW Lymph % (Auto) Seg Neutrophils % Seg Neuts % (Manual) Lymphocytes % (Manual) Seg Neutrophils # Seg Neutrophils # Man Lymphocytes # (Manual) PT ABG pH ABG pO2 ABG HCO3 ABG O2 Saturation ABG Base Excess ABG Hemoglobin Sodium Potassium Chloride BUN Creatinine Glucose POC Glucose 51 L 67 L 59 L Lactic Acid Calcium Phosphorus Magnesium Ferritin ALT Ammonia Troponin T C-Reactive Protein NT-Pro-B Natriuret Pep Total Protein Albumin TSH Coronavirus (PCR) 08/20/21 08/20/21 08/20/21 11:55 12:31 13:37 WBC RBC Hgb Hct RDW Lymph % (Auto) Seg Neutrophils % Seg Neuts % (Manual) Lymphocytes % (Manual) Seg Neutrophils # Seg Neutrophils # Man Lymphocytes # (Manual) PT ABG pH 7.526 H ABG pO2 166.8 H ABG HCO3 ABG O2 Saturation 99.1 H ABG Base Excess ABG Hemoglobin 8.7 L Sodium Potassium Chloride BUN Creatinine Glucose POC Glucose 152 H 150 H Lactic Acid Calcium Phosphorus Magnesium Ferritin ALT Ammonia Troponin T C-Reactive Protein NT-Pro-B Natriuret Pep Total Protein Albumin TSH Coronavirus (PCR) 08/20/21 08/20/21 08/20/21 15:47 17:53 23:19 WBC RBC Hgb Hct RDW Lymph % (Auto) Seg Neutrophils % Seg Neuts % (Manual) Lymphocytes % (Manual) Seg Neutrophils # Seg Neutrophils # Man Lymphocytes # (Manual) PT ABG pH ABG pO2 ABG HCO3 ABG O2 Saturation ABG Base Excess ABG Hemoglobin Sodium Potassium Chloride BUN Creatinine Glucose POC Glucose 204 H 223 H 217 H Lactic Acid Calcium Phosphorus Magnesium Ferritin ALT Ammonia Troponin T C-Reactive Protein NT-Pro-B Natriuret Pep Total Protein Albumin TSH Coronavirus (PCR) 08/21/21 08/21/21 08/21/21 04:46 04:46 04:46 WBC 23.9 H RBC 2.55 L Hgb 7.8 L D Hct 23.6 L D RDW 20.2 H Lymph % (Auto) Seg Neutrophils % Seg Neuts % (Manual) 97.0 H Lymphocytes % (Manual) 1.0 L Seg Neutrophils # Seg Neutrophils # Man 23.2 H Lymphocytes # (Manual) 0.2 L PT ABG pH ABG pO2 ABG HCO3 ABG O2 Saturation ABG Base Excess ABG Hemoglobin Sodium 122 L D Potassium Chloride 87.0 L BUN 23 H Creatinine 3.8 H Glucose 166 H POC Glucose Lactic Acid Calcium 6.8 L Phosphorus 1.60 L Magnesium 1.60 L Ferritin 1787.0 H ALT Ammonia Troponin T C-Reactive Protein 10.60 H NT-Pro-B Natriuret Pep Total Protein Albumin TSH Coronavirus (PCR) 08/21/21 08/21/21 08/21/21 05:11 08:18 11:10 WBC RBC Hgb Hct RDW Lymph % (Auto) Seg Neutrophils % Seg Neuts % (Manual) Lymphocytes % (Manual) Seg Neutrophils # Seg Neutrophils # Man Lymphocytes # (Manual) PT ABG pH 7.495 H ABG pO2 141.5 H ABG HCO3 26.2 H ABG O2 Saturation ABG Base Excess ABG Hemoglobin 7.9 L Sodium Potassium Chloride BUN Creatinine Glucose POC Glucose 151 H 141 H Lactic Acid Calcium Phosphorus Magnesium Ferritin ALT Ammonia Troponin T C-Reactive Protein NT-Pro-B Natriuret Pep Total Protein Albumin TSH Coronavirus (PCR) 08/21/21 14:42 WBC RBC Hgb Hct RDW Lymph % (Auto) Seg Neutrophils % Seg Neuts % (Manual) Lymphocytes % (Manual) Seg Neutrophils # Seg Neutrophils # Man Lymphocytes # (Manual) PT ABG pH ABG pO2 ABG HCO3 ABG O2 Saturation ABG Base Excess ABG Hemoglobin Sodium 121 L Potassium 5.2 H Chloride 88.1 L BUN 28 H Creatinine 3.9 H Glucose 130 H POC Glucose Lactic Acid Calcium 6.7 L Phosphorus Magnesium 2.80 H Ferritin ALT Ammonia Troponin T C-Reactive Protein NT-Pro-B Natriuret Pep Total Protein Albumin TSH Coronavirus (PCR) Chest x-ray: image reviewed Allied health notes reviewed: RT
--- NOTE | 2021-08-21 16:10 | Progress Note ---
Assessment and Plan Acute Hypoxemic Respiratory Failure on MVS -Persitent hypoglycemia -h/o COVID Pneumonia -Possible Aspiration -Sepsis -Leukocytosis -Acute Metabolic Encephalopathy Mental status changes persist. Will keep her off continuous sedation and analgesia infusions. Use prn dosiing Per discussions with hospital medicine the family wants full care. She maybe a candidate for early tracheostomy -vasopressors if needed to keep > 65 mmHg. Blood pressure has improved Continue to hold anti-hypertensives for now, continue to monitor hemodynamics - titrate supplemental oxygen SpO2 keep 89-92% - continue Daily SAT and SBT assessment , readiness to wean daily - VAP bundle addressed, aspiration HOB>30 - continue lung protective strategies - continue bronchodilators with pulmonary hygiene per RT -wean per pulmonary driven protocols otherwise -Bronchodilators - continue accuchecks with glycemic control per SSI (While critically ill target blood glucose of 140-180 mg/dL; avoid hypoglycemia) - sedation prn for target RASS 0 to -1 - avoid nephrotoxins, renally dose all medications -Supportive HD and UF. Renal following -continue to avoid benzodiazepines , reduce the possibility of delirium -Follow cultures, continue antibiotics, de-escalate based on culture data and clinical response -Trend temperature curve and WCC - prn analgesia per CPOT score >3 -Maintenance of sleep-wake cycle, avoid delirium -continue enteral nutritional support at goal rate -Stress ulcer and VTE prophylaxis ( Famotidine and Heparin) -continue mobility, off loading, and frequent turning per facility protocol to prevent pressure ulcers - continue other care per attending / other consultants COVID SPECIFIC INTERVENTIONS - COVID-19 PCR positive Hospital medicine service is having ongoing goals of care discussions with the family CONDITION: CRITICAL PROGNOSIS: GUARDED CODE STATUS: FULL CODE The high probability of a clinically significant, sudden or life-threatening deterioration of the [respiratory, cardiovascular, renal ] system(s) required my full and direct attention, intervention and personal management. The aggregate critical care time was [35] minutes without overlap. Time includes spent on; [x] Data Review and interpretation [x] Patient assessment and monitoring of vital signs [x] Documentation [x] Medication orders and management Subjective Date of service: 08/21/21 Principal diagnosis: Hypoglycemia Interval history: This is a 86-year-old female with known past medical history of DM, ESRD on HD, HTN, who was recent hospitalized for COVID pneumonia admitted this time with severe hypoglycemia and acute hypoxemic respiratory failure requiring ventilatory support. Follow up: Acute hypoxemic respiratory failure; Acute encephalopathy; severe persistent hypoglycemia; ESRD on HD Seen and examined. Vitals, labs, medications,chart reviewed. Discussed with nursing and respiratory staff Remains encephalopathic off all sedation and continuous infusions, tolerating tube feeding with an improvement in her blood glucose MVS: PRVC 18/300/+6/40% The hospital medicine service had discussions with the family and they want full aggressive care Objective - Exam Narrative Exam: Physical Exam: Constitutional: intubated, on the vent Head, Ears, Nose: Normocephalic, atraumatic. External ears, nose normal Eyes: Conjunctivae/corneas clear. No icterus. No ptosis. Neck: intubated Oral: intubated Cardiovascular: S1, S2 +, No murmurs Respiratory: Decreased AE bilaterally, rhonchi GI: Soft, bowel sounds + Musculoskeletal: No pedal edema, no cyanosis. Skin: No rash or abscess Hem/Lymphatic: No palpable cervical or supraclavicular nodes. No lymphangitis Psych: no agitation- o Neurological: unresponsive, intubated, on the vent, exam limited Vital Signs - 12hr 08/21/21 08/21/21 08/21/21 04:16 04:30 04:46 Temperature Pulse Rate 78 82 83 Pulse Rate [ Anterior Bilateral] Pulse Rate [ From Monitor] Respiratory 15 17 17 Rate Respiratory Rate [Anterior Bilateral] Blood Pressure 114/34 111/36 111/36 O2 Sat by Pulse 100 100 100 Oximetry 08/21/21 08/21/21 08/21/21 05:00 05:16 05:30 Temperature Pulse Rate 84 85 84 Pulse Rate [ Anterior Bilateral] Pulse Rate [ From Monitor] Respiratory 18 18 15 Rate Respiratory Rate [Anterior Bilateral] Blood Pressure 120/32 120/32 113/37 O2 Sat by Pulse 100 100 100 Oximetry 08/21/21 08/21/21 08/21/21 05:46 06:00 06:16 Temperature Pulse Rate 85 83 79 Pulse Rate [ Anterior Bilateral] Pulse Rate [ From Monitor] Respiratory 12 21 17 Rate Respiratory Rate [Anterior Bilateral] Blood Pressure 113/37 109/39 109/39 O2 Sat by Pulse 100 100 100 Oximetry 08/21/21 08/21/21 08/21/21 06:18 06:30 06:46 Temperature Pulse Rate 76 74 Pulse Rate [ Anterior Bilateral] Pulse Rate [ From Monitor] Respiratory 19 18 17 Rate Respiratory Rate [Anterior Bilateral] Blood Pressure 109/39 90/30 O2 Sat by Pulse 100 100 100 Oximetry 08/21/21 08/21/21 08/21/21 07:00 07:16 07:30 Temperature Pulse Rate 71 83 78 Pulse Rate [ Anterior Bilateral] Pulse Rate [ From Monitor] Respiratory 17 18 18 Rate Respiratory Rate [Anterior Bilateral] Blood Pressure 88/29 105/34 129/40 O2 Sat by Pulse 100 100 100 Oximetry 08/21/21 08/21/21 08/21/21 07:36 07:46 08:00 Temperature 98.6 F Pulse Rate 77 77 Pulse Rate [ Anterior Bilateral] Pulse Rate [ From Monitor] Respiratory 18 18 Rate Respiratory Rate [Anterior Bilateral] Blood Pressure 129/40 124/37 O2 Sat by Pulse 100 100 Oximetry 08/21/21 08/21/21 08/21/21 08:06 08:14 08:16 Temperature Pulse Rate 77 77 Pulse Rate [ 79 Anterior Bilateral] Pulse Rate [ From Monitor] Respiratory 15 Rate Respiratory 19 Rate [Anterior Bilateral] Blood Pressure 124/37 124/37 O2 Sat by Pulse 100 100 Oximetry 08/21/21 08/21/21 08/21/21 08:30 08:46 09:00 Temperature Pulse Rate 73 71 72 Pulse Rate [ Anterior Bilateral] Pulse Rate [ From Monitor] Respiratory 18 18 18 Rate Respiratory Rate [Anterior Bilateral] Blood Pressure 130/35 130/35 139/31 O2 Sat by Pulse 100 100 100 Oximetry 08/21/21 08/21/21 08/21/21 09:16 09:30 09:46 Temperature Pulse Rate 71 76 71 Pulse Rate [ Anterior Bilateral] Pulse Rate [ 78 From Monitor] Respiratory 18 18 19 Rate Respiratory Rate [Anterior Bilateral] Blood Pressure 139/31 141/40 141/40 O2 Sat by Pulse 100 100 100 Oximetry 08/21/21 08/21/21 08/21/21 10:00 10:16 10:30 Temperature Pulse Rate 71 69 68 Pulse Rate [ Anterior Bilateral] Pulse Rate [ From Monitor] Respiratory 18 17 18 Rate Respiratory Rate [Anterior Bilateral] Blood Pressure 146/35 146/35 136/33 O2 Sat by Pulse 100 100 100 Oximetry 08/21/21 08/21/21 08/21/21 10:46 11:00 11:16 Temperature Pulse Rate 69 66 67 Pulse Rate [ Anterior Bilateral] Pulse Rate [ From Monitor] Respiratory 17 18 18 Rate Respiratory Rate [Anterior Bilateral] Blood Pressure 136/33 141/33 141/33 O2 Sat by Pulse 100 100 100 Oximetry 08/21/21 08/21/21 08/21/21 11:30 11:37 11:46 Temperature 98.1 F Pulse Rate 68 65 66 Pulse Rate [ Anterior Bilateral] Pulse Rate [ From Monitor] Respiratory 18 18 Rate Respiratory Rate [Anterior Bilateral] Blood Pressure 122/34 122/34 122/34 O2 Sat by Pulse 100 100 100 Oximetry 08/21/21 08/21/21 08/21/21 12:00 12:16 12:30 Temperature Pulse Rate 66 65 66 Pulse Rate [ Anterior Bilateral] Pulse Rate [ From Monitor] Respiratory 18 16 18 Rate Respiratory Rate [Anterior Bilateral] Blood Pressure 122/34 141/39 119/37 O2 Sat by Pulse 100 100 100 Oximetry 08/21/21 08/21/21 08/21/21 12:46 13:00 13:16 Temperature Pulse Rate 66 67 66 Pulse Rate [ Anterior Bilateral] Pulse Rate [ From Monitor] Respiratory 18 19 19 Rate Respiratory Rate [Anterior Bilateral] Blood Pressure 119/37 134/41 134/41 O2 Sat by Pulse 100 100 100 Oximetry 08/21/21 08/21/21 08/21/21 13:30 13:46 14:00 Temperature Pulse Rate 67 67 66 Pulse Rate [ 79 Anterior Bilateral] Pulse Rate [ 66 From Monitor] Respiratory 18 18 17 Rate Respiratory 19 Rate [Anterior Bilateral] Blood Pressure 141/39 141/39 141/39 O2 Sat by Pulse 100 100 100 Oximetry 08/21/21 08/21/21 08/21/21 14:16 14:30 14:46 Temperature Pulse Rate 63 67 72 Pulse Rate [ Anterior Bilateral] Pulse Rate [ From Monitor] Respiratory 18 18 17 Rate Respiratory Rate [Anterior Bilateral] Blood Pressure 152/39 156/34 156/34 O2 Sat by Pulse 100 100 100 Oximetry 08/21/21 08/21/21 08/21/21 15:00 15:16 15:30 Temperature Pulse Rate 68 67 65 Pulse Rate [ Anterior Bilateral] Pulse Rate [ From Monitor] Respiratory 15 19 18 Rate Respiratory Rate [Anterior Bilateral] Blood Pressure 148/37 148/37 143/36 O2 Sat by Pulse 100 100 100 Oximetry 08/21/21 15:46 Temperature Pulse Rate 69 Pulse Rate [ Anterior Bilateral] Pulse Rate [ From Monitor] Respiratory 16 Rate Respiratory Rate [Anterior Bilateral] Blood Pressure 143/36 O2 Sat by Pulse 100 Oximetry CBC and BMP: 08/22/21 05:09 08/22/21 05:09 ABG, PT/INR, D-dimer: ABG ABG pH 7.495 pH Units (7.350-7.450) H 08/21/21 08:18 ABG pCO2 34.8 mm Hg 08/21/21 08:18 ABG pO2 141.5 mm Hg (80.0-90.0) H 08/21/21 08:18 ABG O2 Saturation 98.9 % (95.0-99.0) 08/21/21 08:18 PT/INR, D-dimer PT 15.6 Sec. (12.2-14.9) H 08/19/21 04:53 INR 1.12 (0.87-1.13) 08/19/21 04:53 Abnormal lab findings: Abnormal Labs 08/19/21 08/19/21 08/19/21 04:53 04:53 04:53 WBC 13.0 H RBC 3.03 L Hgb 9.1 L Hct 28.8 L RDW 20.5 H Lymph % (Auto) Seg Neutrophils % Seg Neuts % (Manual) 96.0 H Lymphocytes % (Manual) 1.0 L Seg Neutrophils # Seg Neutrophils # Man 12.5 H Lymphocytes # (Manual) 0.1 L PT 15.6 H ABG pH ABG pO2 ABG HCO3 ABG O2 Saturation ABG Base Excess ABG Hemoglobin Sodium 132 L D Potassium Chloride 96.8 L BUN Creatinine 3.6 H Glucose 599 H* POC Glucose Lactic Acid Calcium 6.6 L D Phosphorus Magnesium 1.50 L Ferritin ALT 6 L Ammonia Troponin T 0.042 H C-Reactive Protein NT-Pro-B Natriuret Pep Total Protein 5.4 L Albumin 2.4 L TSH Coronavirus (PCR) 08/19/21 08/19/21 08/19/21 04:53 04:53 05:35 WBC RBC Hgb Hct RDW Lymph % (Auto) Seg Neutrophils % Seg Neuts % (Manual) Lymphocytes % (Manual) Seg Neutrophils # Seg Neutrophils # Man Lymphocytes # (Manual) PT ABG pH 7.520 H ABG pO2 152.6 H ABG HCO3 26.3 H ABG O2 Saturation ABG Base Excess 3.4 H ABG Hemoglobin 7.9 L Sodium Potassium Chloride BUN Creatinine Glucose POC Glucose Lactic Acid 2.10 H* Calcium Phosphorus Magnesium Ferritin ALT Ammonia 10.0 L Troponin T C-Reactive Protein NT-Pro-B Natriuret Pep Total Protein Albumin TSH Coronavirus (PCR) 08/19/21 08/19/21 08/19/21 06:01 07:54 08:30 WBC RBC Hgb Hct RDW Lymph % (Auto) Seg Neutrophils % Seg Neuts % (Manual) Lymphocytes % (Manual) Seg Neutrophils # Seg Neutrophils # Man Lymphocytes # (Manual) PT ABG pH ABG pO2 ABG HCO3 ABG O2 Saturation ABG Base Excess ABG Hemoglobin Sodium Potassium Chloride BUN Creatinine Glucose POC Glucose < 10 L Lactic Acid Calcium Phosphorus Magnesium Ferritin ALT Ammonia Troponin T C-Reactive Protein NT-Pro-B Natriuret Pep 31167 H Total Protein Albumin TSH 4.850 H Coronavirus (PCR) 08/19/21 08/19/21 08/19/21 08:30 08:37 09:43 WBC RBC Hgb Hct RDW Lymph % (Auto) Seg Neutrophils % Seg Neuts % (Manual) Lymphocytes % (Manual) Seg Neutrophils # Seg Neutrophils # Man Lymphocytes # (Manual) PT ABG pH ABG pO2 ABG HCO3 ABG O2 Saturation ABG Base Excess ABG Hemoglobin Sodium Potassium Chloride BUN Creatinine Glucose POC Glucose 115 H < 10 L Lactic Acid 3.20 H* Calcium Phosphorus Magnesium Ferritin ALT Ammonia Troponin T C-Reactive Protein NT-Pro-B Natriuret Pep Total Protein Albumin TSH Coronavirus (PCR) 08/19/21 08/19/21 08/19/21 10:07 11:05 11:49 WBC RBC Hgb Hct RDW Lymph % (Auto) Seg Neutrophils % Seg Neuts % (Manual) Lymphocytes % (Manual) Seg Neutrophils # Seg Neutrophils # Man Lymphocytes # (Manual) PT ABG pH ABG pO2 ABG HCO3 ABG O2 Saturation ABG Base Excess ABG Hemoglobin Sodium Potassium Chloride BUN Creatinine Glucose POC Glucose 109 H 32 L 164 H Lactic Acid Calcium Phosphorus Magnesium Ferritin ALT Ammonia Troponin T C-Reactive Protein NT-Pro-B Natriuret Pep Total Protein Albumin TSH Coronavirus (PCR) 08/19/21 08/19/21 08/19/21 14:03 16:57 18:23 WBC RBC Hgb Hct RDW Lymph % (Auto) Seg Neutrophils % Seg Neuts % (Manual) Lymphocytes % (Manual) Seg Neutrophils # Seg Neutrophils # Man Lymphocytes # (Manual) PT ABG pH ABG pO2 ABG HCO3 ABG O2 Saturation ABG Base Excess ABG Hemoglobin Sodium Potassium Chloride BUN Creatinine Glucose POC Glucose 51 L 57 L 50 L Lactic Acid Calcium Phosphorus Magnesium Ferritin ALT Ammonia Troponin T C-Reactive Protein NT-Pro-B Natriuret Pep Total Protein Albumin TSH Coronavirus (PCR) 08/19/21 08/19/21 08/19/21 19:15 21:42 23:29 WBC RBC Hgb Hct RDW Lymph % (Auto) Seg Neutrophils % Seg Neuts % (Manual) Lymphocytes % (Manual) Seg Neutrophils # Seg Neutrophils # Man Lymphocytes # (Manual) PT ABG pH ABG pO2 ABG HCO3 ABG O2 Saturation ABG Base Excess ABG Hemoglobin Sodium Potassium Chloride BUN Creatinine Glucose 26 L* POC Glucose 57 L 42 L Lactic Acid Calcium Phosphorus Magnesium Ferritin ALT Ammonia Troponin T C-Reactive Protein NT-Pro-B Natriuret Pep Total Protein Albumin TSH Coronavirus (PCR) 08/19/21 08/19/21 08/20/21 Unknown Unknown 00:37 WBC RBC Hgb Hct RDW Lymph % (Auto) Seg Neutrophils % Seg Neuts % (Manual) Lymphocytes % (Manual) Seg Neutrophils # Seg Neutrophils # Man Lymphocytes # (Manual) PT ABG pH 7.499 H ABG pO2 239.2 H ABG HCO3 27.6 H ABG O2 Saturation 99.4 H ABG Base Excess 4.3 H ABG Hemoglobin 11.3 L Sodium Potassium Chloride BUN Creatinine Glucose POC Glucose 50 L Lactic Acid Calcium Phosphorus Magnesium Ferritin ALT Ammonia Troponin T C-Reactive Protein NT-Pro-B Natriuret Pep Total Protein Albumin TSH Coronavirus (PCR) Positive A 08/20/21 08/20/21 08/20/21 01:41 02:35 03:41 WBC RBC Hgb Hct RDW Lymph % (Auto) Seg Neutrophils % Seg Neuts % (Manual) Lymphocytes % (Manual) Seg Neutrophils # Seg Neutrophils # Man Lymphocytes # (Manual) PT ABG pH ABG pO2 ABG HCO3 ABG O2 Saturation ABG Base Excess ABG Hemoglobin Sodium Potassium Chloride BUN Creatinine Glucose POC Glucose 54 L 40 L 13 L Lactic Acid Calcium Phosphorus Magnesium Ferritin ALT Ammonia Troponin T C-Reactive Protein NT-Pro-B Natriuret Pep Total Protein Albumin TSH Coronavirus (PCR) 08/20/21 08/20/21 08/20/21 04:15 04:15 04:15 WBC 14.6 H RBC Hgb Hct RDW 20.7 H Lymph % (Auto) 9.9 L Seg Neutrophils % 82.4 H Seg Neuts % (Manual) Lymphocytes % (Manual) Seg Neutrophils # 12.0 H Seg Neutrophils # Man Lymphocytes # (Manual) PT ABG pH ABG pO2 ABG HCO3 ABG O2 Saturation ABG Base Excess ABG Hemoglobin Sodium 132 L Potassium Chloride 93.8 L BUN Creatinine 2.7 H Glucose 52 L POC Glucose Lactic Acid 3.40 H* Calcium 7.1 L Phosphorus Magnesium Ferritin ALT Ammonia Troponin T C-Reactive Protein NT-Pro-B Natriuret Pep Total Protein 4.9 L Albumin 2.6 L TSH Coronavirus (PCR) 08/20/21 08/20/21 08/20/21 05:28 06:33 07:37 WBC RBC Hgb Hct RDW Lymph % (Auto) Seg Neutrophils % Seg Neuts % (Manual) Lymphocytes % (Manual) Seg Neutrophils # Seg Neutrophils # Man Lymphocytes # (Manual) PT ABG pH ABG pO2 ABG HCO3 ABG O2 Saturation ABG Base Excess ABG Hemoglobin Sodium Potassium Chloride BUN Creatinine Glucose POC Glucose 51 L 67 L 59 L Lactic Acid Calcium Phosphorus Magnesium Ferritin ALT Ammonia Troponin T C-Reactive Protein NT-Pro-B Natriuret Pep Total Protein Albumin TSH Coronavirus (PCR) 08/20/21 08/20/21 08/20/21 11:55 12:31 13:37 WBC RBC Hgb Hct RDW Lymph % (Auto) Seg Neutrophils % Seg Neuts % (Manual) Lymphocytes % (Manual) Seg Neutrophils # Seg Neutrophils # Man Lymphocytes # (Manual) PT ABG pH 7.526 H ABG pO2 166.8 H ABG HCO3 ABG O2 Saturation 99.1 H ABG Base Excess ABG Hemoglobin 8.7 L Sodium Potassium Chloride BUN Creatinine Glucose POC Glucose 152 H 150 H Lactic Acid Calcium Phosphorus Magnesium Ferritin ALT Ammonia Troponin T C-Reactive Protein NT-Pro-B Natriuret Pep Total Protein Albumin TSH Coronavirus (PCR) 08/20/21 08/20/21 08/20/21 15:47 17:53 23:19 WBC RBC Hgb Hct RDW Lymph % (Auto) Seg Neutrophils % Seg Neuts % (Manual) Lymphocytes % (Manual) Seg Neutrophils # Seg Neutrophils # Man Lymphocytes # (Manual) PT ABG pH ABG pO2 ABG HCO3 ABG O2 Saturation ABG Base Excess ABG Hemoglobin Sodium Potassium Chloride BUN Creatinine Glucose POC Glucose 204 H 223 H 217 H Lactic Acid Calcium Phosphorus Magnesium Ferritin ALT Ammonia Troponin T C-Reactive Protein NT-Pro-B Natriuret Pep Total Protein Albumin TSH Coronavirus (PCR) 08/21/21 08/21/21 08/21/21 04:46 04:46 04:46 WBC 23.9 H RBC 2.55 L Hgb 7.8 L D Hct 23.6 L D RDW 20.2 H Lymph % (Auto) Seg Neutrophils % Seg Neuts % (Manual) 97.0 H Lymphocytes % (Manual) 1.0 L Seg Neutrophils # Seg Neutrophils # Man 23.2 H Lymphocytes # (Manual) 0.2 L PT ABG pH ABG pO2 ABG HCO3 ABG O2 Saturation ABG Base Excess ABG Hemoglobin Sodium 122 L D Potassium Chloride 87.0 L BUN 23 H Creatinine 3.8 H Glucose 166 H POC Glucose Lactic Acid Calcium 6.8 L Phosphorus 1.60 L Magnesium 1.60 L Ferritin 1787.0 H ALT Ammonia Troponin T C-Reactive Protein 10.60 H NT-Pro-B Natriuret Pep Total Protein Albumin TSH Coronavirus (PCR) 08/21/21 08/21/21 08/21/21 05:11 08:18 11:10 WBC RBC Hgb Hct RDW Lymph % (Auto) Seg Neutrophils % Seg Neuts % (Manual) Lymphocytes % (Manual) Seg Neutrophils # Seg Neutrophils # Man Lymphocytes # (Manual) PT ABG pH 7.495 H ABG pO2 141.5 H ABG HCO3 26.2 H ABG O2 Saturation ABG Base Excess ABG Hemoglobin 7.9 L Sodium Potassium Chloride BUN Creatinine Glucose POC Glucose 151 H 141 H Lactic Acid Calcium Phosphorus Magnesium Ferritin ALT Ammonia Troponin T C-Reactive Protein NT-Pro-B Natriuret Pep Total Protein Albumin TSH Coronavirus (PCR) 08/21/21 14:42 WBC RBC Hgb Hct RDW Lymph % (Auto) Seg Neutrophils % Seg Neuts % (Manual) Lymphocytes % (Manual) Seg Neutrophils # Seg Neutrophils # Man Lymphocytes # (Manual) PT ABG pH ABG pO2 ABG HCO3 ABG O2 Saturation ABG Base Excess ABG Hemoglobin Sodium 121 L Potassium 5.2 H Chloride 88.1 L BUN 28 H Creatinine 3.9 H Glucose 130 H POC Glucose Lactic Acid Calcium 6.7 L Phosphorus Magnesium 2.80 H Ferritin ALT Ammonia Troponin T C-Reactive Protein NT-Pro-B Natriuret Pep Total Protein Albumin TSH Coronavirus (PCR) Additional Studies: Transthoracic echocardiogram - LVEF 40-45% Moderate ; RVSP 26 Allied health notes reviewed: RT
[2021-08-21] MEDS: MEROPENEM/NS 1 GRAM/100 ML 1 GRAM/100 ML BAG IV SCH (17:28)
[2021-08-21] MEDS ORDERED: VANCOMYCIN 750 MG in SODIUM CHLORIDE 0.9% 250ML 250 ML IV ONE (22:00)
[2021-08-21] MEDS: SENNOSIDES ORAL LIQD 8.8 MG/5 ML ORAL LIQD PO SCH (22:32)
[2021-08-22] MEDS: INSULIN LISPRO 100 UNIT/ML SUB-Q SCH ×4 (00:20→17:20)
[2021-08-22] MEDS: METOCLOPRAMIDE 10 MG/2 ML INJ IV SCH ×3 (04:18→20:50)
[2021-08-22] MEDS: IPRATROPIUM/ALBUTEROL SULFATE 3 ML AMPUL.NEB IH SCH ×4 (05:29→19:25)
[2021-08-22] MEDS: HEPARIN 5,000 UNIT/1 ML VIAL SUB-Q SCH ×3 (05:33→21:12)
[2021-08-22 05:34] LABS: Hematocrit 23.5 % (30.3-42.9); Hemoglobin 7.8 gm/dl (10.1-14.3); Mean Corpuscular HGB Conc 33 % (30-34); Mean Corpuscular Volume 92 fl (79-97); Platelet Count 299 K/mm3 (140-440); Red Blood Count 2.55 M/mm3 (3.65-5.03)
[2021-08-22 05:37] LABS: Red Cell Distribution Width 21.1 % (13.2-15.2)
[2021-08-22 05:43] LABS: Calcium 7.6 mg/dL (8.4-10.2)
[2021-08-22 06:25] LABS: ABG Base Excess 2.6 mmol/L (-2.0-3.0); ABG HCO3 25.4 mmol/L (20.0-26.0); ABG Methemoglobin 0.3 % (0.0-1.5); ABG Oxygen Saturation 97.8 % (95.0-99.0); ABG PCO2 32.4 mm Hg; ABG PH 7.513 pH Units (7.350-7.450); ABG PO2 86.3 mm Hg (80.0-90.0)
[2021-08-22] MEDS: BUDESONIDE 0.5 MG/2 ML NEBU IH SCH ×2 (08:00→19:25)
[2021-08-22] MEDS ORDERED: SODIUM PHOSPHATE 30 MMOL in SODIUM CHLORIDE 0.9% 500 ML 500 ML IV ONE (08:41)
[2021-08-22] MEDS: CHOLECALCIFEROL (VIT D3) 1000 UNIT (25 mcg) TAB PO SCH (09:55)
[2021-08-22] MEDS: FAMOTIDINE 20 MG TAB PO SCH (09:55)
[2021-08-22] MEDS: GABAPENTIN 300 MG CAP PO SCH (09:55)
[2021-08-22] MEDS: ZINC SULFATE 220 MG CAP PO SCH ×2 (09:55→21:11)
--- NOTE | 2021-08-22 12:06 | Progress Note ---
<JUAN JOSÉ MCLAUGHLIN - Last Filed: 08/22/21 18:05> Assessment and Plan Assessment and plan: This is a 86-year-old female with known past medical history of DM, ESRD on HD, HTN, who was recent hospitalized for COVID pneumonia admitted this time with severe hypoglycemia and acute hypoxemic respiratory failure requiring ventilat ory support. Hospital Course to Date: 08/20: Off sedation this am, open eyes spontaneously but does not follow any commands. Patient remains hypoglycemic throught the night despite D10W gtt and TF at goal. TF is now on hold this am due to vomiting. Reglan was initiated Q8h rs, X1 dose of IV steroids, and continue D10w and Q1hr BG check for now. Midodrine was also added TID for hypotension. Possible PST today once more awake, plan to start weaning vent for possible extubation. 08/21: Patient remains on thevent, mentation is unchanged, off sedation. BG impro lisandra, no more vomiting, patient is tolerating TF. On SSI Q6hrs, low NA this am, will switch D10w to NS at 50cc,a and mag and phosp repleted. Possible HD today per Nephro. BP also improved, continue midodrine TID. Family conference call today with the attending. Patient's condition and overall poor prognosis were thoroughly discussed with patient's family. They want to keep patient as a FULL code status and leaning towards Trach and PEG. D/w CCM, will continue to monitor patient's mental status over the weekend. If no improvement by tuesday, plan to consult General Surgery for possible trach and PEG tube placement. 08/22: Patient appears a lot more awake this am, however, still not following c ommands. BG remains stable, still tolerating TF. Patient is now hypertensive, will hold midodrine for now. Tolerated HD overnight. Electrolytes replaced, repeat lab in the am Assessment and Plan #Acute Hypoxemic Respiratory Failure #COVID Pneumonia #Possible Aspiration - Presented unresponsive, patient was intubated in the ED for airway proctection - Patient was recently treated for COVID with IV steroids - COVID PCR is still positive - This am vent setting: PRVC-30%,6,18,300 - AM ABG noted - CCM consulted, appreciate recommendations - Continue IV ABx per ID and Nebs per CCM - VAP bundle addressed - Aspiration precaution HOB above 30 - Daily SBT and SAT trials as tolerated - Daily ABG and CXR - Continue SPO2 monitoring for SPO2 goal above 92% #Sepsis #Leukocytosis #COVID Pneumonia #Possible Aspiration - Recent treated for COVID pneumonia with IV steroids - Patient was not a candidate for Remdesevir due to ESRD - Imaging still with persistent bilateral lungs opacities with minimal change from last admit - Repeat COVID PCR is positive - Sputum and blood culture is pending - ID is on consult - Continue empiric IV Abx for now per ID - Continue to F/U on B.cult - Daily CBC monitor #Hypotension #Congestive heart failure with preserved EF- Chronic #NSTEMI - BP is stable this am - Continue Midodrine TID - Continue blood pressure monitor per protocol - Antihypertensive agents are on hold - Patient also presented with elevated BNP and elevated troponin - Cardiology on consult, appreciated recommendations - 08/19 Echo- EF 40-45% - SR noted on the monitor this am #Severe Hypoglycemia-resolved #H/o DM - Reported patient was with poor appetite at home and receiving oral diabetic ag ents - Presented with severe hypoglycemia, s/p X1 dose of IV steroids - Now on low SSI Q6hrs - TF resumed and patient is tolerating TF this am - Continue hypoglycemic protocol - Avoid Hypoglycemia #Acute Metabolic Encephalopathy - Most likely related to severe hypoglycemia - CT head noted with no acute findings- remote lacunar infarct, generalized atrophy, and microvascular ischemia - Off sedation this am - Hold all sedative agents for now - PRN analgesia for CPOT greater than 3 - Avoid benzo to prevent delirium - Maintenance of sleep-wake cycle #End-Stage Renal Disease(ESRD) on HD - Nephrology on consult, appreciated recommendation - Patient did not tolerated HD overnight due to low BP - Midodrine added TID - Continue HD per Nephro - Strict intake and output; Patient is anuric - Avoid nephrotoxic medications; Renally dose medications - Monitor and replace electrolytes as needed - Trend BMP #Nausea/Vomiting #Severe protein calorie malnutrition - Enteral Nutrition initiated - Tolerating TF this am, no vomiting reported - Continue Reglan [id number] - Continue BR - Continue PPI- Pepcid - Nutrition on consult for TF management #GI/DVT Prophylaxis - PPI- Pepcid - Continue AC- Hep SubQ - SCDs to bilateral lower extremities while in bed The high probability of a clinically significant, sudden or life threatening deterioration of the [multiple] system(s) required my full and direct attention, intervention and personal management. The aggregate critical care time was [60] minutes. This time is in addition to time spent performing reported procedures but includes the following: [x] Data Review and interpretation [x] Patient assessment and monitoring of vital signs [x] Documentation [x] Medication orders and management Disposition Plan: ICU Total Time Spent with Patient (Minutes): 60 History Interval history: Patient seen and examined at the bedside. Remains intubated. Patient appears more awake this am but still not following commands. Tolerated HD overnight. SIVAKUMAR overnight Hospitalist Physical - Constitutional Vitals: Temp Pulse Resp BP Pulse Ox 98.1 F 63 14 169/47 99 08/22/21 08:00 08/22/21 08:08 08/22/21 08:08 08/22/21 08:01 08/22/21 08:08 General appearance: Present: no acute distress, other (Intubated) - EENT Eyes: Present: PERRL - Respiratory Respiratory effort: normal Respiratory: bilateral: rhonchi - Cardiovascular Rhythm: regular Heart Sounds: Present: S1 & S2 - Extremities Extremities: no ischemia, pulses intact, pulses symmetrical Extremity abnormal: edema - Peripheral Assessment Generalized Edema Type: Pitting Edema Degree: 2+ Capillary Refill: < 3 seconds Skin Temperature: Warm Peripheral Pulses: within normal limits - Abdominal General gastrointestinal: soft, non-distended, normal bowel sounds - Integumentary Integumentary: Present: warm, dry, erythema - Psychiatric Psychiatric: other (LORE) - Neurologic Neurologic: other (Awake, not following commands) - Allied Health Allied health notes reviewed: nursing HEART Score - HEART Score Troponin: Troponin T 0.042 ng/mL (0.00-0.029) H 08/19/21 04:53 Results - Labs CBC & Chem 7: 08/22/21 05:09 08/22/21 05:09 Labs: Laboratory Last Values WBC 25.0 K/mm3 (4.5-11.0) H 08/22/21 05:09 RBC 2.55 M/mm3 (3.65-5.03) L 08/22/21 05:09 Hgb 7.8 gm/dl (10.1-14.3) L 08/22/21 05:09 Hct 23.5 % (30.3-42.9) L 08/22/21 05:09 MCV 92 fl (79-97) 08/22/21 05:09 MCH 30 pg (28-32) 08/22/21 05:09 MCHC 33 % (30-34) 08/22/21 05:09 RDW 21.1 % (13.2-15.2) H 08/22/21 05:09 Plt Count 299 K/mm3 (140-440) 08/22/21 05:09 Lymph % (Auto) 9.9 % (13.4-35.0) L 08/20/21 04:15 [place] % (Auto) 4.5 % (0.0-7.3) 08/20/21 04:15 Eos % (Auto) 2.8 % (0.0-4.3) 08/20/21 04:15 Baso % (Auto) 0.4 % (0.0-1.8) 08/20/21 04:15 Lymph # (Auto) 1.4 K/mm3 (1.2-5.4) 08/20/21 04:15 [place] # (Auto) 0.7 K/mm3 (0.0-0.8) 08/20/21 04:15 Eos # (Auto) 0.4 K/mm3 (0.0-0.4) 08/20/21 04:15 Baso # (Auto) 0.1 K/mm3 (0.0-0.1) 08/20/21 04:15 Add Manual Diff Complete 08/21/21 04:46 Total Counted 100 08/21/21 04:46 Seg Neutrophils % Freelance Operator 08/21/21 04:46 Seg Neuts % (Manual) 97.0 % (40.0-70.0) H 08/21/21 04:46 Band Neutrophils % 0 % 08/21/21 04:46 Lymphocytes % (Manual) 1.0 % (13.4-35.0) L 08/21/21 04:46 Reactive Lymphs % (Man) 0 % 08/21/21 04:46 Monocytes % (Manual) 2.0 % (0.0-7.3) 08/21/21 04:46 Eosinophils % (Manual) 0 % (0.0-4.3) 08/21/21 04:46 Basophils % (Manual) 0 % (0.0-1.8) 08/21/21 04:46 Metamyelocytes % 0 % 08/21/21 04:46 Myelocytes % 0 % 08/21/21 04:46 Promyelocytes % 0 % 08/21/21 04:46 Blast Cells % 0 % 08/21/21 04:46 Nucleated RBC % Not Reportable 08/21/21 04:46 Seg Neutrophils # 12.0 K/mm3 (1.8-7.7) H 08/20/21 04:15 Seg Neutrophils # Man 23.2 K/mm3 (1.8-7.7) H 08/21/21 04:46 Band Neutrophils # 0.0 K/mm3 08/21/21 04:46 Lymphocytes # (Manual) 0.2 K/mm3 (1.2-5.4) L 08/21/21 04:46 Abs React Lymphs (Man) 0.0 K/mm3 08/21/21 04:46 Monocytes # (Manual) 0.5 K/mm3 (0.0-0.8) 08/21/21 04:46 Eosinophils # (Manual) 0.0 K/mm3 (0.0-0.4) 08/21/21 04:46 Basophils # (Manual) 0.0 K/mm3 (0.0-0.1) 08/21/21 04:46 Metamyelocytes # 0.0 K/mm3 08/21/21 04:46 Myelocytes # 0.0 K/mm3 08/21/21 04:46 Promyelocytes # 0.0 K/mm3 08/21/21 04:46 Blast Cells # 0.0 K/mm3 08/21/21 04:46 WBC Morphology Not Reportable 08/21/21 04:46 Hypersegmented Neuts Not Reportable 08/21/21 04:46 Hyposegmented Neuts Not Reportable 08/21/21 04:46 Hypogranular Neuts Not Reportable 08/21/21 04:46 Smudge Cells Not Reportable 08/21/21 04:46 Toxic Granulation Not Reportable 08/21/21 04:46 Toxic Vacuolation Not Reportable 08/21/21 04:46 Dohle Bodies Not Reportable 08/21/21 04:46 Pelger-Huet Anomaly Not Reportable 08/21/21 04:46 Dhara Rods Not Reportable 08/21/21 04:46 Platelet Estimate Consistent w auto 08/21/21 04:46 Clumped Platelets Not Reportable 08/21/21 04:46 Plt Clumps, EDTA Not Reportable 08/21/21 04:46 Large Platelets Not Reportable 08/21/21 04:46 Giant Platelets Not Reportable 08/21/21 04:46 Platelet Satelliting Not Reportable 08/21/21 04:46 Plt Morphology Comment Not Reportable 08/21/21 04:46 RBC Morphology Not Reportable 08/21/21 04:46 Dimorphic RBCs Not Reportable 08/21/21 04:46 Polychromasia Few 08/21/21 04:46 Hypochromasia 1+ 08/21/21 04:46 Poikilocytosis Not Reportable 08/21/21 04:46 Anisocytosis 1+ 08/21/21 04:46 Microcytosis Not Reportable 08/21/21 04:46 Macrocytosis Not Reportable 08/21/21 04:46 Spherocytes Not Reportable 08/21/21 04:46 Pappenheimer Bodies Not Reportable 08/21/21 04:46 Sickle Cells Not Reportable 08/21/21 04:46 Target Cells Not Reportable 08/21/21 04:46 Tear Drop Cells Not Reportable 08/21/21 04:46 Ovalocytes Not Reportable 08/21/21 04:46 Helmet Cells Not Reportable 08/21/21 04:46 Leyva-Mona Bodies Not Reportable 08/21/21 04:46 [place] Rings Not Reportable 08/21/21 04:46 [place] Cells Not Reportable 08/21/21 04:46 Bite Cells Not Reportable 08/21/21 04:46 Crenated Cell Not Reportable 08/21/21 04:46 Elliptocytes Not Reportable 08/21/21 04:46 Acanthocytes (Spur) Not Reportable 08/21/21 04:46 Rouleaux Not Reportable 08/21/21 04:46 Hemoglobin C Crystals Not Reportable 08/21/21 04:46 Schistocytes Not Reportable 08/21/21 04:46 Malaria parasites Not Reportable 08/21/21 04:46 Keshav Bodies Not Reportable 08/21/21 04:46 Hem Pathologist Commnt No 08/21/21 04:46 PT 15.6 Sec. (12.2-14.9) H 08/19/21 04:53 INR 1.12 (0.87-1.13) 08/19/21 04:53 APTT 30.3 Sec. (24.2-36.6) 08/19/21 04:53 ABG pH 7.513 pH Units (7.350-7.450) H 08/22/21 05:40 ABG pCO2 32.4 mm Hg 08/22/21 05:40 ABG pO2 86.3 mm Hg (80.0-90.0) 08/22/21 05:40 ABG HCO3 25.4 mmol/L (20.0-26.0) 08/22/21 05:40 ABG O2 Saturation 97.8 % (95.0-99.0) 08/22/21 05:40 ABG O2 Content 11.0 (0.0-44) 08/21/21 08:18 ABG Base Excess 2.6 mmol/L (-2.0-3.0) 08/22/21 05:40 ABG Hemoglobin 8.6 gm/dl (12.0-16.0) L 08/22/21 05:40 ABG Carboxyhemoglobin 1.4 % (0.0-5.0) 08/22/21 05:40 ABG Methemoglobin 0.3 % (0.0-1.5) 08/22/21 05:40 Oxyhemoglobin 96.1 % (95.0-99.0) 08/22/21 05:40 FiO2 30 % 08/22/21 05:40 Sodium 135 mmol/L (137-145) L D 08/22/21 05:09 Potassium 3.9 mmol/L (3.6-5.0) D 08/22/21 05:09 Chloride 99.4 mmol/L (98-107) 08/22/21 05:09 Carbon Dioxide 24 mmol/L (22-30) 08/22/21 05:09 Anion Gap 16 mmol/L 08/22/21 05:09 BUN 20 mg/dL (7-17) H 08/22/21 05:09 Creatinine 2.9 mg/dL (0.6-1.2) H 08/22/21 05:09 Estimated GFR 15 ml/min 08/22/21 05:09 BUN/Creatinine Ratio 7 % 08/22/21 05:09 Glucose 95 mg/dL (65-100) 08/22/21 05:09 POC Glucose 122 mg/dL (70-105) H 08/22/21 11:37 Lactic Acid 3.40 mmol/L (0.7-2.0) H* 08/20/21 04:15 Calcium 7.6 mg/dL (8.4-10.2) L 08/22/21 05:09 Phosphorus 1.40 mg/dL (2.5-4.5) L D 08/22/21 05:09 Magnesium 2.20 mg/dL (1.7-2.3) 08/22/21 05:09 Ferritin 1787.0 ng/mL (10.0-200.0) H 08/21/21 04:46 Total Bilirubin 0.30 mg/dL (0.1-1.2) 08/20/21 04:15 AST 17 units/L (5-40) 08/20/21 04:15 ALT 7 units/L (7-56) 08/20/21 04:15 Alkaline Phosphatase 85 units/L (35-129) 08/20/21 04:15 Ammonia 10.0 umol/L (25-60) L 08/19/21 04:53 Total Creatine Kinase 105 units/L (30-135) 08/19/21 04:53 CK-MB (CK-2) 1.1 ng/mL (0.0-4.0) 08/19/21 04:53 CK-MB (CK-2) Rel Index 1.0 (0-4) 08/19/21 04:53 Troponin T 0.042 ng/mL (0.00-0.029) H 08/19/21 04:53 C-Reactive Protein 10.60 mg/dL (0.00-1.30) H 08/21/21 04:46 NT-Pro-B Natriuret Pep 64845 pg/mL (0-900) H 08/19/21 06:01 Total Protein 4.9 g/dL (6.3-8.2) L 08/20/21 04:15 Albumin 2.6 g/dL (3.9-5) L 08/20/21 04:15 Albumin/Globulin Ratio 1.1 % 08/20/21 04:15 Triglycerides 122 mg/dL (2-149) 08/19/21 04:53 Cholesterol 160 mg/dL (50-199) 08/19/21 04:53 LDL Cholesterol Direct 88 mg/dL (50-130) 08/19/21 04:53 HDL Cholesterol 47 mg/dL (40-59) 08/19/21 04:53 Cholesterol/HDL Ratio 3.40 % 08/19/21 04:53 TSH 4.850 mlU/mL (0.270-4.200) H 08/19/21 08:30 Random Vancomycin 17.8 ug/mL (0-40.0) 08/21/21 04:46 Coronavirus (PCR) Positive (Negative) A 08/19/21 Unknown Microbiology: Microbiology 08/19/21 06:01 Peripheral/Venous Blood Culture - Preliminary NO GROWTH AFTER 72 HOURS 08/19/21 06:01 Peripheral/Venous Blood Culture - Preliminary NO GROWTH AFTER 72 HOURS 08/19/21 05:55 Tracheal Aspirate Sputum Culture - Final [place]/IV: Voiding Method Incontinent Active Medications - Current Medications Current Medications: Generic Name Dose Route Start Last Admin Trade Name Freq PRN Reason Stop Dose Admin Acetaminophen 650 mg 08/19/21 10:00 Acetaminophen 325 Mg Tab PO Q6H PRN Pain MILD(1-3)/Fever >100.5/MEHTA Albuterol 2.5 mg 08/19/21 11:00 Albuterol 2.5 Mg/3 Ml Nebu IH Q3HRT PRN Shortness Of Breath Albuterol/Ipratropium 1 ampul 08/19/21 14:00 08/22/21 05:29 Ipratropium/Albuterol Sulfate 3 Ml Ampul.Neb IH Not Given Q6HRT ANAHY Budesonide 0.5 mg 08/19/21 20:00 08/21/21 20:59 Budesonide 0.5 Mg/2 Ml Nebu IH 0.5 mg Q12HRT ANAHY Administration Cholecalciferol 1,000 unit 08/19/21 10:00 08/22/21 09:55 Cholecalciferol (Vit D3) 1000 Unit (25 Mcg) Tab PO 1,000 unit QDAY ANAHY Administration Dextrose 0 ml 08/19/21 09:30 08/20/21 11:28 Dextrose 10% *Hypoglycemia IV 50 ml PRN PRN Administration Hypoglycemia Famotidine 20 mg 08/19/21 10:00 08/22/21 09:55 Famotidine 20 Mg Tab PO 20 mg QAM ANAHY Administration Fentanyl 50 mcg 08/20/21 10:03 Fentanyl 100 Mcg/2 Ml Inj IV Q2HR PRN For CPOT greater than 3 Gabapentin 300 mg 08/19/21 10:00 08/22/21 09:55 Gabapentin 300 Mg Cap PO 300 mg BID ANAHY Administration Heparin Sodium (Porcine) 5,000 unit 08/19/21 11:00 08/22/21 05:33 Heparin 5,000 Unit/1 Ml Vial SUB-Q 5,000 unit Q8HR ANAHY Administration Sodium Chloride 100 mls @ 999 mls/hr 08/19/21 11:14 Nacl 0.9% IV LEVI PRN Hypotension Dextrose 1,000 mls @ 50 mls/hr 08/20/21 11:00 08/20/21 15:52 D10w IV 0 mls/hr DIRECT ANAHY Infusion Meropenem/Sodium Chloride 1 gram in 100 mls @ 100 mls/hr 08/21/21 18:00 08/21/21 17:28 Merrem/Ns 1 Gram/100 Ml IV 100 mls/hr QPM ANAHY Administration Protocol Sodium Phosphate 30 mmol/ 510 mls @ 125 mls/hr 08/22/21 08:41 08/22/21 11:38 Sodium Chloride IV 08/22/21 12:45 125 mls/hr ONCE ONE Administration Insulin Human Lispro 0 unit 08/19/21 12:00 08/22/21 11:39 Insulin Lispro 100 Unit/Ml SUB-Q Not Given Q6HR ANAHY Protocol Metoclopramide HCl 5 mg 08/20/21 12:00 08/22/21 11:39 Metoclopramide 10 Mg/2 Ml Inj IV 5 mg Q8H ANAHY Administration Mirtazapine 15 mg 08/20/21 10:02 Mirtazapine 15 Mg Tab PO QHS PRN Sleep Naloxone HCl 0.1 mg 08/19/21 09:30 Naloxone 0.4 Mg/1 Ml Inj IV Q2MIN PRN Res Rate </= 8 or 02 SAT < 92% Senna 17.6 mg 08/20/21 22:00 08/21/21 22:32 Sennosides Oral Liqd 8.8 Mg/5 Ml Oral Liqd PO 17.6 mg QHS ANAHY Administration Simple Syrup 30 ml 08/19/21 17:44 08/20/21 03:48 Simple Syrup 15 Ml FEEDTUBE 30 ml PRN PRN Administration Hypoglycemia Sodium Chloride 10 ml 08/19/21 10:00 08/22/21 09:57 Sodium Chloride 0.9% 10 Ml Flush Syringe IV 10 ml BID ANAHY Administration Sodium Chloride 10 ml 08/19/21 09:30 Sodium Chloride 0.9% 10 Ml Flush Syringe IV PRN PRN LINE FLUSH Zinc Sulfate 220 mg 08/19/21 11:00 08/22/21 09:55 Zinc Sulfate 220 Mg Cap PO 220 mg BID ANAHY Administration Nutrition/Malnutrition Assess - Dietary Evaluation Nutrition/Malnutrition Findings: Nutrition Notes Start: 08/19/21 14:18 Freq: Status: Active Protocol: Document 08/19/21 14:18 MIGUEL ANGEL (Rec: 08/19/21 14:35 MIGUEL ANGEL [id number]) Nutrition Notes Need for Assessment generated from: MD Order Initial or Follow up Assessment Current Diagnosis CKD (stage V CKD),Diabetes, Hypertension,Respiratory Failure,Hyperlipidemia Other Pertinent Diagnosis ESRD+HD, Metabolic Encephalopathy. Current Diet NPO. TF-Nepro w/CARBSTEADY @ 28 ml/hr (from D 08/19). Labs/Tests 08/19: Na 132, Cl 96.8, Crea 3 .6, Glu 599. Pertinent Medications 08/19: Vit D3, ZnSO4, others nutritionally unremarkable. 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 Pt on Mechanical Ventilation. Pt seems to present COVID-19 sequels. Percent of energy/protein needs met: Prescribed TF-Nepro w/ CARBSTEADY @ 28 ml/hr provides for energy/protein needs (1, 197 Kcal/54 g) during LOS, 100 % Kcal; 86% AA. Burn Absent Trauma Absent GI Symptoms None Food Allergy No Skin Integrity/Comment Sacral pressure wound stage I Current % PO Other Minimum of two criteria No #1 Nutrition Diagnosis Inadequate oral intake Etiology Pt on Mechanical Ventilation As Evidenced by Signs and Symptoms Pt on NPO. Is patient on ventilator? Yes Is Patient Ambulatory and/or Out of Bed No REE-([place]-confined to bed) 1389.180 Kcal/Kg value to use for calculation 16 Approximate Energy Requirements Using 1197 kcal/Kg Calculation Used for Recommendations Kcal/kg Additional Notes Protein: 1-1.2 g/Kg; 63-76 g/ day. Fluids: 1 ml/Kcal, or as per MD. Nutrition Intervention Nutrition Support: Start Nepro w/CARBSTEADY @ 28 ml/hr. Flush: 100 ml water Q 4 hr, or as per MD. Kcal 1,197 Protein (gm) 54 Carbohydrates (gm) 107 Fat (gm) 64 Fluid (mL) 485 Fiber (gm) 8 % RDI: 100% Kcal; 86% AA. Goal #1 Provide at least 75% of energy /protein needs through Enteral Feeding during LOS. Goal #2 Maintain body weight within +/ -3% of admission body weight during LOS. Follow-Up By: 08/22/21 Additional Comments Continue monitoring TF tolerance and BM. <JENNIFER CARRILLO E - Last Filed: 08/26/21 16:11> Assessment and Plan Assessment and plan: I saw and evaluated the patient. I agree with the findings and the plan of care as documented in the Nurse Practitioner's~note, with the following corrections and additions. Hospitalist Physical - Constitutional Vitals: Temp Pulse Resp BP Pulse Ox 99.5 F 99 H 15 145/53 99 08/26/21 13:00 08/26/21 16:00 08/26/21 16:00 08/26/21 16:00 08/26/21 16:00 HEART Score - HEART Score Troponin: Troponin T 0.042 ng/mL (0.00-0.029) H 08/19/21 04:53 Results - Labs CBC & Chem 7: 08/26/21 04:31 08/26/21 04:31 Labs: Laboratory Last Values WBC 9.8 K/mm3 (4.5-11.0) 08/26/21 04:31 RBC 2.92 M/mm3 (3.65-5.03) L 08/26/21 04:31 Hgb 9.0 gm/dl (10.1-14.3) L 08/26/21 04:31 Hct 26.5 % (30.3-42.9) L 08/26/21 04:31 MCV 91 fl (79-97) 08/26/21 04:31 MCH 31 pg (28-32) 08/26/21 04:31 MCHC 34 % (30-34) 08/26/21 04:31 RDW 20.5 % (13.2-15.2) H 08/26/21 04:31 Plt Count 321 K/mm3 (140-440) 08/26/21 04:31 Lymph % (Auto) 9.9 % (13.4-35.0) L 08/20/21 04:15 [place] % (Auto) 4.5 % (0.0-7.3) 08/20/21 04:15 Eos % (Auto) 2.8 % (0.0-4.3) 08/20/21 04:15 Baso % (Auto) 0.4 % (0.0-1.8) 08/20/21 04:15 Lymph # (Auto) 1.4 K/mm3 (1.2-5.4) 08/20/21 04:15 [place] # (Auto) 0.7 K/mm3 (0.0-0.8) 08/20/21 04:15 Eos # (Auto) 0.4 K/mm3 (0.0-0.4) 08/20/21 04:15 Baso # (Auto) 0.1 K/mm3 (0.0-0.1) 08/20/21 04:15 Add Manual Diff Complete 08/21/21 04:46 Total Counted 100 08/21/21 04:46 Seg Neutrophils % Freelance Operator 08/21/21 04:46 Seg Neuts % (Manual) 97.0 % (40.0-70.0) H 08/21/21 04:46 Band Neutrophils % 0 % 08/21/21 04:46 Lymphocytes % (Manual) 1.0 % (13.4-35.0) L 08/21/21 04:46 Reactive Lymphs % (Man) 0 % 08/21/21 04:46 Monocytes % (Manual) 2.0 % (0.0-7.3) 08/21/21 04:46 Eosinophils % (Manual) 0 % (0.0-4.3) 08/21/21 04:46 Basophils % (Manual) 0 % (0.0-1.8) 08/21/21 04:46 Metamyelocytes % 0 % 08/21/21 04:46 Myelocytes % 0 % 08/21/21 04:46 Promyelocytes % 0 % 08/21/21 04:46 Blast Cells % 0 % 08/21/21 04:46 Nucleated RBC % Not Reportable 08/21/21 04:46 Seg Neutrophils # 12.0 K/mm3 (1.8-7.7) H 08/20/21 04:15 Seg Neutrophils # Man 23.2 K/mm3 (1.8-7.7) H 08/21/21 04:46 Band Neutrophils # 0.0 K/mm3 08/21/21 04:46 Lymphocytes # (Manual) 0.2 K/mm3 (1.2-5.4) L 08/21/21 04:46 Abs React Lymphs (Man) 0.0 K/mm3 08/21/21 04:46 Monocytes # (Manual) 0.5 K/mm3 (0.0-0.8) 08/21/21 04:46 Eosinophils # (Manual) 0.0 K/mm3 (0.0-0.4) 08/21/21 04:46 Basophils # (Manual) 0.0 K/mm3 (0.0-0.1) 08/21/21 04:46 Metamyelocytes # 0.0 K/mm3 08/21/21 04:46 Myelocytes # 0.0 K/mm3 08/21/21 04:46 Promyelocytes # 0.0 K/mm3 08/21/21 04:46 Blast Cells # 0.0 K/mm3 08/21/21 04:46 WBC Morphology Not Reportable 08/21/21 04:46 Hypersegmented Neuts Not Reportable 08/21/21 04:46 Hyposegmented Neuts Not Reportable 08/21/21 04:46 Hypogranular Neuts Not Reportable 08/21/21 04:46 Smudge Cells Not Reportable 08/21/21 04:46 Toxic Granulation Not Reportable 08/21/21 04:46 Toxic Vacuolation Not Reportable 08/21/21 04:46 Dohle Bodies Not Reportable 08/21/21 04:46 Pelger-Huet Anomaly Not Reportable 08/21/21 04:46 Dhara Rods Not Reportable 08/21/21 04:46 Platelet Estimate Consistent w auto 08/21/21 04:46 Clumped Platelets Not Reportable 08/21/21 04:46 Plt Clumps, EDTA Not Reportable 08/21/21 04:46 Large Platelets Not Reportable 08/21/21 04:46 Giant Platelets Not Reportable 08/21/21 04:46 Platelet Satelliting Not Reportable 08/21/21 04:46 Plt Morphology Comment Not Reportable 08/21/21 04:46 RBC Morphology Not Reportable 08/21/21 04:46 Dimorphic RBCs Not Reportable 08/21/21 04:46 Polychromasia Few 08/21/21 04:46 Hypochromasia 1+ 08/21/21 04:46 Poikilocytosis Not Reportable 08/21/21 04:46 Anisocytosis 1+ 08/21/21 04:46 Microcytosis Not Reportable 08/21/21 04:46 Macrocytosis Not Reportable 08/21/21 04:46 Spherocytes Not Reportable 08/21/21 04:46 Pappenheimer Bodies Not Reportable 08/21/21 04:46 Sickle Cells Not Reportable 08/21/21 04:46 Target Cells Not Reportable 08/21/21 04:46 Tear Drop Cells Not Reportable 08/21/21 04:46 Ovalocytes Not Reportable 08/21/21 04:46 Helmet Cells Not Reportable 08/21/21 04:46 Leyva-Mona Bodies Not Reportable 08/21/21 04:46 [place] Rings Not Reportable 08/21/21 04:46 [place] Cells Not Reportable 08/21/21 04:46 Bite Cells Not Reportable 08/21/21 04:46 Crenated Cell Not Reportable 08/21/21 04:46 Elliptocytes Not Reportable 08/21/21 04:46 Acanthocytes (Spur) Not Reportable 08/21/21 04:46 Rouleaux Not Reportable 08/21/21 04:46 Hemoglobin C Crystals Not Reportable 08/21/21 04:46 Schistocytes Not Reportable 08/21/21 04:46 Malaria parasites Not Reportable 08/21/21 04:46 Keshav Bodies Not Reportable 08/21/21 04:46 Hem Pathologist Commnt No 08/21/21 04:46 PT 15.6 Sec. (12.2-14.9) H 08/19/21 04:53 INR 1.12 (0.87-1.13) 08/19/21 04:53 APTT 30.3 Sec. (24.2-36.6) 08/19/21 04:53 D-Dimer 2539.68 ng/mlDDU (0-234) H 08/26/21 04:31 ABG pH 7.453 pH Units (7.350-7.450) H 08/25/21 10:30 ABG pCO2 42.8 mm Hg 08/25/21 10:30 ABG pO2 98.5 mm Hg (80.0-90.0) H 08/25/21 10:30 ABG HCO3 29.2 mmol/L (20.0-26.0) H 08/25/21 10:30 ABG O2 Saturation 97.6 % (95.0-99.0) 08/25/21 10:30 ABG O2 Content 15.1 (0.0-44) 08/25/21 10:30 ABG Base Excess 4.8 mmol/L (-2.0-3.0) H 08/25/21 10:30 ABG Hemoglobin 11.2 gm/dl (12.0-16.0) L 08/25/21 10:30 ABG Carboxyhemoglobin 1.6 % (0.0-5.0) 08/25/21 10:30 ABG Methemoglobin 0.5 % (0.0-1.5) 08/25/21 10:30 Oxyhemoglobin 95.5 % (95.0-99.0) 08/25/21 10:30 FiO2 30 % 08/25/21 10:30 Sodium 139 mmol/L (137-145) 08/26/21 04:31 Potassium 4.1 mmol/L (3.6-5.0) 08/26/21 04:31 Chloride 101.2 mmol/L (98-107) 08/26/21 04:31 Carbon Dioxide 26 mmol/L (22-30) 08/26/21 04:31 Anion Gap 16 mmol/L 08/26/21 04:31 BUN 39 mg/dL (7-17) H 08/26/21 04:31 Creatinine 3.2 mg/dL (0.6-1.2) H 08/26/21 04:31 Estimated GFR 14 ml/min 08/26/21 04:31 BUN/Creatinine Ratio 12 % 08/26/21 04:31 Glucose 119 mg/dL (65-100) H 08/26/21 04:31 POC Glucose 157 mg/dL (70-105) H 08/26/21 16:01 Lactic Acid 3.40 mmol/L (0.7-2.0) H* 08/20/21 04:15 Calcium 7.9 mg/dL (8.4-10.2) L 08/26/21 04:31 Phosphorus 2.80 mg/dL (2.5-4.5) 08/26/21 04:31 Magnesium 2.20 mg/dL (1.7-2.3) 08/26/21 04:31 Ferritin > 2000.0 ng/mL (10.0-200.0) H 08/26/21 04:31 Total Bilirubin 0.30 mg/dL (0.1-1.2) 08/20/21 04:15 AST 17 units/L (5-40) 08/20/21 04:15 ALT 7 units/L (7-56) 08/20/21 04:15 Alkaline Phosphatase 85 units/L (35-129) 08/20/21 04:15 Ammonia 10.0 umol/L (25-60) L 08/19/21 04:53 Lactate Dehydrogenase 194 units/L (91-180) H 08/26/21 04:31 Total Creatine Kinase 105 units/L (30-135) 08/19/21 04:53 CK-MB (CK-2) 1.1 ng/mL (0.0-4.0) 08/19/21 04:53 CK-MB (CK-2) Rel Index 1.0 (0-4) 08/19/21 04:53 Troponin T 0.042 ng/mL (0.00-0.029) H 08/19/21 04:53 C-Reactive Protein 9.10 mg/dL (0.00-1.30) H 08/26/21 04:31 NT-Pro-B Natriuret Pep 14030 pg/mL (0-900) H 08/19/21 06:01 Total Protein 4.9 g/dL (6.3-8.2) L 08/20/21 04:15 Albumin 2.6 g/dL (3.9-5) L 08/20/21 04:15 Albumin/Globulin Ratio 1.1 % 08/20/21 04:15 Triglycerides 122 mg/dL (2-149) 08/19/21 04:53 Cholesterol 160 mg/dL (50-199) 08/19/21 04:53 LDL Cholesterol Direct 88 mg/dL (50-130) 08/19/21 04:53 HDL Cholesterol 47 mg/dL (40-59) 08/19/21 04:53 Cholesterol/HDL Ratio 3.40 % 08/19/21 04:53 TSH 4.850 mlU/mL (0.270-4.200) H 08/19/21 08:30 Random Vancomycin 13.9 ug/mL (0-40.0) 08/26/21 04:31 Coronavirus (PCR) Positive (Negative) A 08/19/21 Unknown Blood Type O POSITIVE 08/24/21 06:41 Antibody Screen Negative 08/24/21 06:41 Crossmatch See Detail 08/24/21 06:41 [place]/IV: Voiding Method Incontinent Active Medications - Current Medications Current Medications: Generic Name Dose Route Start Last Admin Trade Name Freq PRN Reason Stop Dose Admin Acetaminophen 650 mg 08/19/21 10:00 Acetaminophen 325 Mg Tab PO Q6H PRN Pain MILD(1-3)/Fever >100.5/MEHTA Albuterol 2.5 mg 08/19/21 11:00 Albuterol 2.5 Mg/3 Ml Nebu IH Q3HRT PRN Shortness Of Breath Amlodipine Besylate 10 mg 08/23/21 10:00 08/26/21 10:02 Amlodipine 10 Mg Tab PO 10 mg QDAY ANAHY Administration Budesonide 0.5 mg 08/19/21 20:00 08/26/21 09:24 Budesonide 0.5 Mg/2 Ml Nebu IH 0.5 mg Q12HRT ANAHY Administration Clonidine HCl 0.1 mg 08/24/21 10:00 08/26/21 10:02 Clonidine 0.1 Mg Tab PO 0.1 mg BID ANAHY Administration Dextrose 0 ml 08/19/21 09:30 08/20/21 11:28 Dextrose 10% *Hypoglycemia IV 50 ml PRN PRN Administration Hypoglycemia Famotidine 20 mg 08/19/21 10:00 08/26/21 10:02 Famotidine 20 Mg Tab PO 20 mg QAM ANAHY Administration Heparin Sodium (Porcine) 5,000 unit 08/19/21 11:00 08/26/21 14:19 Heparin 5,000 Unit/1 Ml Vial SUB-Q 5,000 unit Q8HR ANAHY Administration Meropenem/Sodium Chloride 1 gram in 100 mls @ 100 mls/hr 08/21/21 18:00 08/25/21 17:57 Merrem/Ns 1 Gram/100 Ml IV 08/28/21 18:59 100 mls/hr QPM ANAHY Administration Protocol Sodium Chloride 100 mls @ 999 mls/hr 08/24/21 10:50 Nacl 0.9% IV LEVI PRN Hypotension Insulin Human Lispro 0 unit 08/19/21 12:00 08/26/21 11:39 Insulin Lispro 100 Unit/Ml SUB-Q Not Given Q6HR [facility] Protocol Labetalol HCl 10 mg 08/23/21 12:17 08/25/21 12:16 Labetalol 20 Mg/4 Ml Inj IV 10 mg Q4H PRN Administration Hypertension Mirtazapine 15 mg 08/20/21 10:02 Mirtazapine 15 Mg Tab PO QHS PRN Sleep Naloxone HCl 0.1 mg 08/19/21 09:30 Naloxone 0.4 Mg/1 Ml Inj IV Q2MIN PRN Res Rate </= 8 or 02 SAT < 92% Paricalcitol 2 mcg 08/24/21 10:50 08/24/21 17:56 Paricalcitol 2 Mcg/1 Ml Inj IV 2 mcg LEVI PRN Administration hemodialysis Senna 17.6 mg 08/20/21 22:00 08/25/21 22:23 Sennosides Oral Liqd 8.8 Mg/5 Ml Oral Liqd PO Not Given QHS ANAHY Simple Syrup 30 ml 08/19/21 17:44 08/20/21 03:48 Simple Syrup 15 Ml FEEDTUBE 30 ml PRN PRN Administration Hypoglycemia Sodium Chloride 10 ml 08/19/21 10:00 08/26/21 10:02 Sodium Chloride 0.9% 10 Ml Flush Syringe IV 10 ml BID ANAHY Administration Sodium Chloride 10 ml 08/19/21 09:30 Sodium Chloride 0.9% 10 Ml Flush Syringe IV PRN PRN LINE FLUSH Nutrition/Malnutrition Assess - Dietary Evaluation Nutrition/Malnutrition Findings: Nutrition Notes Start: 08/19/21 14:18 Freq: Status: Active Protocol: Document 08/22/21 17:21 MIGUEL ANGEL (Rec: 08/22/21 17:31 MIGUEL ANGEL [id number]) Nutrition Notes Initial or Follow up Brief Note Current Diet NPO. TF-Nepro w/CARBSTEADY @ 28 ml/hr (from D 08/19). Height 5 ft 2 in Weight 74.843 kg [place] Body Weight (kg) 50.00 BMI 30.2 Weight change and time frame No body weight change reported in 3 days. Weight Status Overweight Subjective/Other Information RD consult for routine F/U on TF tolerance. Pt continues on Mechanical Ventilation. TF continues as prescribed, with adjustment on the Flush quantity recommended. Percent of energy/protein needs met: Prescribed TF-Nepro w/ CARBSTEADY @ 28 ml/hr provides for energy/protein needs (1, 197 Kcal/54 g) during LOS, 100 % Kcal; 86% AA. #1 Nutrition Diagnosis Inadequate oral intake Diagnosis Progress(for reassessment Continues documentation) Is patient on ventilator? Yes Is Patient Ambulatory and/or Out of Bed No REE-([facility]-confined to bed) 1389.180 Kcal/Kg value to use for calculation 16 Approximate Energy Requirements Using 1197 kcal/Kg Calculation Used for Recommendations Kcal/kg Additional Notes Protein: 1-1.2 g/Kg; 63-76 g/ day. Fluids: 1 ml/Kcal, or as per MD. Nutrition Intervention Nutrition Support: Nepro w/CARBSTEADY @ 28 ml/hr. Flush: 100 ml water Q 4 hr, or as per MD. Kcal 1,197 Protein (gm) 54 Carbohydrates (gm) 107 Fat (gm) 64 Fluid (mL) 485 Fiber (gm) 8 % RDI: 100% Kcal; 86% AA. Goal #1 Provide at least 75% of energy /protein needs through Enteral Feeding during LOS. Goal #2 Maintain body weight within +/ -3% of admission body weight during LOS. Follow-Up By: 08/28/21 Additional Comments Continue monitoring TF tolerance and BM.
--- NOTE | 2021-08-22 13:53 | Progress Note ---
Assessment and Plan Acute Hypoxemic Respiratory Failure on MVS -Sepsis -Recurrent hypoglycemic events -h/o COVID Pneumonia -Possible Aspiration -Leukocytosis -Acute Metabolic Encephalopathy -Hypomagnesemia -End-stage renal disease -Congestive heart failure with preserved EF chronic -Continue to hold anti-hypertensives for now, continue to monitor hemodynamics -titrate supplemental oxygen SpO2 keep 89-92% -continue Daily SAT and SBT assessment , readiness to wean daily -VAP bundle addressed, aspiration HOB>30 -continue lung protective strategies -continue bronchodilators with pulmonary hygiene per RT -wean per pulmonary driven protocols otherwise -continue accuchecks q1h for now; D10 infusion;avoid hypoglycemia -OGT in place on tube feedings, no hypoglycemia -avoid nephrotoxins, renally dose all medications -Supportive HD and UF. Renal following -Follow cultures, continue antibiotics, de-escalate based on culture data and clinical response -On Cefepime and Vancomycin( pulse dosing) -Trend temperature curve and WCC -Stress ulcer and VTE prophylaxis (Famotidine and Heparin) -continue mobility, off loading, and frequent turning per facility protocol to prevent pressure ulcers -continue other care per attending / other consultants COVID SPECIFIC INTERVENTIONS - COVID-19 PCR positive -Airborne and contact isolation per facility protocol Hospital medicine service is having ongoing goals of care discussions with the family Family want full aggressive care. Will continue to monitor for neurological recovery CONDITION: CRITICAL PROGNOSIS: GUARDED CODE STATUS: FULL CODE The high probability of a clinically significant, sudden or life-threatening deterioration of the [respiratory, endocrine, neurology, renal ] system(s) required my full and direct attention, intervention and personal management. The aggregate critical care time was [35] minutes without overlap. Time includes spent on; [x] Data Review and interpretation [x] Patient assessment and monitoring of vital signs [x] Documentation [x] Medication orders and management Subjective Date of service: 08/22/21 Principal diagnosis: Hypoglycemia Interval history: This is a 86-year-old female with known past medical history of DM, ESRD on HD, HTN, who was recent hospitalized for COVID pneumonia admitted this time with severe hypoglycemia and acute hypoxemic respiratory failure requiring ventilatory support. Follow up: Acute hypoxemic respiratory failure; Acute encephalopathy; severe persistent hypoglycemia; ESRD on HD Seen and examined. Vitals, labs, medications,chart reviewed. Discussed with nursing and respiratory staff Remains encephalopathic off all sedation and continuous infusions,tolerating tube feeding with an improvement in her blood glucose MVS: PRVC 18/300/+6/40% The hospital medicine service had discussions with the family and they want full aggressive care Objective Vital Signs - 12hr 08/22/21 08/22/21 08/22/21 02:00 02:15 02:31 Temperature Pulse Rate 83 87 87 Pulse Rate [ 74 Anterior Bilateral] Pulse Rate [ 78 From Monitor] Respiratory 13 11 L 18 Rate Respiratory 19 Rate [Anterior Bilateral] Blood Pressure 167/60 167/60 158/33 O2 Sat by Pulse 100 100 100 Oximetry 08/22/21 08/22/21 08/22/21 02:45 03:01 03:15 Temperature Pulse Rate 82 77 76 Pulse Rate [ Anterior Bilateral] Pulse Rate [ From Monitor] Respiratory 13 18 17 Rate Respiratory Rate [Anterior Bilateral] Blood Pressure 145/30 147/35 147/35 O2 Sat by Pulse 100 100 100 Oximetry 08/22/21 08/22/21 08/22/21 03:31 03:45 04:00 Temperature 99.1 F Pulse Rate 81 79 82 Pulse Rate [ Anterior Bilateral] Pulse Rate [ From Monitor] Respiratory 15 18 15 Rate Respiratory Rate [Anterior Bilateral] Blood Pressure 143/31 142/23 126/35 O2 Sat by Pulse 100 100 100 Oximetry 08/22/21 08/22/21 08/22/21 04:15 04:31 04:45 Temperature Pulse Rate 78 84 80 Pulse Rate [ Anterior Bilateral] Pulse Rate [ From Monitor] Respiratory 18 9 L 18 Rate Respiratory Rate [Anterior Bilateral] Blood Pressure 126/35 123/33 128/31 O2 Sat by Pulse 100 100 100 Oximetry 08/22/21 08/22/21 08/22/21 05:00 05:15 05:31 Temperature Pulse Rate 79 80 80 Pulse Rate [ Anterior Bilateral] Pulse Rate [ From Monitor] Respiratory 18 17 18 Rate Respiratory Rate [Anterior Bilateral] Blood Pressure 130/31 130/31 139/35 O2 Sat by Pulse 100 100 100 Oximetry 08/22/21 08/22/21 08/22/21 05:45 06:00 06:15 Temperature Pulse Rate 82 82 86 Pulse Rate [ Anterior Bilateral] Pulse Rate [ From Monitor] Respiratory 18 18 18 Rate Respiratory Rate [Anterior Bilateral] Blood Pressure 135/46 122/38 122/38 O2 Sat by Pulse 100 100 100 Oximetry 08/22/21 08/22/21 08/22/21 06:31 06:45 07:00 Temperature Pulse Rate 83 82 83 Pulse Rate [ Anterior Bilateral] Pulse Rate [ From Monitor] Respiratory 18 18 18 Rate Respiratory Rate [Anterior Bilateral] Blood Pressure 132/42 120/36 144/44 O2 Sat by Pulse 100 100 100 Oximetry 08/22/21 08/22/21 08/22/21 07:15 07:31 07:45 Temperature Pulse Rate 85 82 84 Pulse Rate [ Anterior Bilateral] Pulse Rate [ From Monitor] Respiratory 19 18 18 Rate Respiratory Rate [Anterior Bilateral] Blood Pressure 144/44 143/42 151/39 O2 Sat by Pulse 100 100 100 Oximetry 08/22/21 08/22/21 08/22/21 08:00 08:01 08:08 Temperature 98.1 F Pulse Rate 91 H 99 H Pulse Rate [ 72 Anterior Bilateral] Pulse Rate [ 63 From Monitor] Respiratory 15 14 Rate Respiratory 18 Rate [Anterior Bilateral] Blood Pressure 168/47 169/47 O2 Sat by Pulse 100 100 99 Oximetry 08/22/21 08/22/21 08/22/21 08:15 08:31 08:45 Temperature Pulse Rate 85 92 H 93 H Pulse Rate [ Anterior Bilateral] Pulse Rate [ From Monitor] Respiratory 18 17 18 Rate Respiratory Rate [Anterior Bilateral] Blood Pressure 169/47 148/58 142/35 O2 Sat by Pulse 100 99 99 Oximetry 08/22/21 08/22/21 08/22/21 09:00 09:15 09:31 Temperature Pulse Rate 88 89 89 Pulse Rate [ Anterior Bilateral] Pulse Rate [ From Monitor] Respiratory 17 18 17 Rate Respiratory Rate [Anterior Bilateral] Blood Pressure 150/44 150/44 137/40 O2 Sat by Pulse 99 99 100 Oximetry 08/22/21 08/22/21 08/22/21 09:45 10:00 10:15 Temperature Pulse Rate 92 H 95 H 89 Pulse Rate [ Anterior Bilateral] Pulse Rate [ From Monitor] Respiratory 19 18 18 Rate Respiratory Rate [Anterior Bilateral] Blood Pressure 136/34 160/44 160/44 O2 Sat by Pulse 100 100 100 Oximetry 08/22/21 08/22/21 08/22/21 10:31 10:45 11:00 Temperature Pulse Rate 90 88 90 Pulse Rate [ Anterior Bilateral] Pulse Rate [ From Monitor] Respiratory 18 18 18 Rate Respiratory Rate [Anterior Bilateral] Blood Pressure 166/52 151/42 155/39 O2 Sat by Pulse 100 100 100 Oximetry 08/22/21 08/22/21 08/22/21 11:15 11:31 11:45 Temperature Pulse Rate 89 88 92 H Pulse Rate [ Anterior Bilateral] Pulse Rate [ From Monitor] Respiratory 18 18 18 Rate Respiratory Rate [Anterior Bilateral] Blood Pressure 155/39 152/48 162/43 O2 Sat by Pulse 100 100 100 Oximetry 08/22/21 08/22/21 08/22/21 12:00 12:15 12:31 Temperature Pulse Rate 91 H 91 H 88 Pulse Rate [ Anterior Bilateral] Pulse Rate [ From Monitor] Respiratory 18 18 18 Rate Respiratory Rate [Anterior Bilateral] Blood Pressure 159/39 159/39 168/48 O2 Sat by Pulse 100 100 100 Oximetry 08/22/21 08/22/21 12:45 13:00 Temperature Pulse Rate 90 89 Pulse Rate [ Anterior Bilateral] Pulse Rate [ From Monitor] Respiratory 18 18 Rate Respiratory Rate [Anterior Bilateral] Blood Pressure 160/50 160/49 O2 Sat by Pulse 100 100 Oximetry Constitutional: no acute distress, other (orally intuabted to MVS, elderly woman) Eyes: non-icteric ENT: oropharynx moist, other (OGT, ETT at 23cm) Neck: supple, no lymphadenopathy, other (Right EJ) Effort: normal Ascultation: Bilateral: diminished breath sounds, rhonchi Cardiovascular: regular rate and rhythm, other (S1,S2) Gastrointestinal: normoactive bowel sounds, soft, non-tender, non-distended Integumentary: normal Extremities: no cyanosis, no edema Neurologic: pupils equal and round, unable to assess CBC and BMP: 08/24/21 04:00 08/24/21 04:00 ABG, PT/INR, D-dimer: ABG ABG pH 7.513 pH Units (7.350-7.450) H 08/22/21 05:40 ABG pCO2 32.4 mm Hg 08/22/21 05:40 ABG pO2 86.3 mm Hg (80.0-90.0) 08/22/21 05:40 ABG O2 Saturation 97.8 % (95.0-99.0) 08/22/21 05:40 PT/INR, D-dimer PT 15.6 Sec. (12.2-14.9) H 08/19/21 04:53 INR 1.12 (0.87-1.13) 08/19/21 04:53 Abnormal lab findings: Abnormal Labs 08/19/21 08/19/21 08/19/21 04:53 04:53 04:53 WBC 13.0 H RBC 3.03 L Hgb 9.1 L Hct 28.8 L RDW 20.5 H Lymph % (Auto) Seg Neutrophils % Seg Neuts % (Manual) 96.0 H Lymphocytes % (Manual) 1.0 L Seg Neutrophils # Seg Neutrophils # Man 12.5 H Lymphocytes # (Manual) 0.1 L PT 15.6 H ABG pH ABG pO2 ABG HCO3 ABG O2 Saturation ABG Base Excess ABG Hemoglobin Sodium 132 L D Potassium Chloride 96.8 L BUN Creatinine 3.6 H Glucose 599 H* POC Glucose Lactic Acid Calcium 6.6 L D Phosphorus Magnesium 1.50 L Ferritin ALT 6 L Ammonia Troponin T 0.042 H C-Reactive Protein NT-Pro-B Natriuret Pep Total Protein 5.4 L Albumin 2.4 L TSH Coronavirus (PCR) 08/19/21 08/19/21 08/19/21 04:53 04:53 05:35 WBC RBC Hgb Hct RDW Lymph % (Auto) Seg Neutrophils % Seg Neuts % (Manual) Lymphocytes % (Manual) Seg Neutrophils # Seg Neutrophils # Man Lymphocytes # (Manual) PT ABG pH 7.520 H ABG pO2 152.6 H ABG HCO3 26.3 H ABG O2 Saturation ABG Base Excess 3.4 H ABG Hemoglobin 7.9 L Sodium Potassium Chloride BUN Creatinine Glucose POC Glucose Lactic Acid 2.10 H* Calcium Phosphorus Magnesium Ferritin ALT Ammonia 10.0 L Troponin T C-Reactive Protein NT-Pro-B Natriuret Pep Total Protein Albumin TSH Coronavirus (PCR) 08/19/21 08/19/21 08/19/21 06:01 07:54 08:30 WBC RBC Hgb Hct RDW Lymph % (Auto) Seg Neutrophils % Seg Neuts % (Manual) Lymphocytes % (Manual) Seg Neutrophils # Seg Neutrophils # Man Lymphocytes # (Manual) PT ABG pH ABG pO2 ABG HCO3 ABG O2 Saturation ABG Base Excess ABG Hemoglobin Sodium Potassium Chloride BUN Creatinine Glucose POC Glucose < 10 L Lactic Acid Calcium Phosphorus Magnesium Ferritin ALT Ammonia Troponin T C-Reactive Protein NT-Pro-B Natriuret Pep 29762 H Total Protein Albumin TSH 4.850 H Coronavirus (PCR) 08/19/21 08/19/21 08/19/21 08:30 08:37 09:43 WBC RBC Hgb Hct RDW Lymph % (Auto) Seg Neutrophils % Seg Neuts % (Manual) Lymphocytes % (Manual) Seg Neutrophils # Seg Neutrophils # Man Lymphocytes # (Manual) PT ABG pH ABG pO2 ABG HCO3 ABG O2 Saturation ABG Base Excess ABG Hemoglobin Sodium Potassium Chloride BUN Creatinine Glucose POC Glucose 115 H < 10 L Lactic Acid 3.20 H* Calcium Phosphorus Magnesium Ferritin ALT Ammonia Troponin T C-Reactive Protein NT-Pro-B Natriuret Pep Total Protein Albumin TSH Coronavirus (PCR) 08/19/21 08/19/21 08/19/21 10:07 11:05 11:49 WBC RBC Hgb Hct RDW Lymph % (Auto) Seg Neutrophils % Seg Neuts % (Manual) Lymphocytes % (Manual) Seg Neutrophils # Seg Neutrophils # Man Lymphocytes # (Manual) PT ABG pH ABG pO2 ABG HCO3 ABG O2 Saturation ABG Base Excess ABG Hemoglobin Sodium Potassium Chloride BUN Creatinine Glucose POC Glucose 109 H 32 L 164 H Lactic Acid Calcium Phosphorus Magnesium Ferritin ALT Ammonia Troponin T C-Reactive Protein NT-Pro-B Natriuret Pep Total Protein Albumin TSH Coronavirus (PCR) 08/19/21 08/19/21 08/19/21 14:03 16:57 18:23 WBC RBC Hgb Hct RDW Lymph % (Auto) Seg Neutrophils % Seg Neuts % (Manual) Lymphocytes % (Manual) Seg Neutrophils # Seg Neutrophils # Man Lymphocytes # (Manual) PT ABG pH ABG pO2 ABG HCO3 ABG O2 Saturation ABG Base Excess ABG Hemoglobin Sodium Potassium Chloride BUN Creatinine Glucose POC Glucose 51 L 57 L 50 L Lactic Acid Calcium Phosphorus Magnesium Ferritin ALT Ammonia Troponin T C-Reactive Protein NT-Pro-B Natriuret Pep Total Protein Albumin TSH Coronavirus (PCR) 08/19/21 08/19/21 08/19/21 19:15 21:42 23:29 WBC RBC Hgb Hct RDW Lymph % (Auto) Seg Neutrophils % Seg Neuts % (Manual) Lymphocytes % (Manual) Seg Neutrophils # Seg Neutrophils # Man Lymphocytes # (Manual) PT ABG pH ABG pO2 ABG HCO3 ABG O2 Saturation ABG Base Excess ABG Hemoglobin Sodium Potassium Chloride BUN Creatinine Glucose 26 L* POC Glucose 57 L 42 L Lactic Acid Calcium Phosphorus Magnesium Ferritin ALT Ammonia Troponin T C-Reactive Protein NT-Pro-B Natriuret Pep Total Protein Albumin TSH Coronavirus (PCR) 08/19/21 08/19/21 08/20/21 Unknown Unknown 00:37 WBC RBC Hgb Hct RDW Lymph % (Auto) Seg Neutrophils % Seg Neuts % (Manual) Lymphocytes % (Manual) Seg Neutrophils # Seg Neutrophils # Man Lymphocytes # (Manual) PT ABG pH 7.499 H ABG pO2 239.2 H ABG HCO3 27.6 H ABG O2 Saturation 99.4 H ABG Base Excess 4.3 H ABG Hemoglobin 11.3 L Sodium Potassium Chloride BUN Creatinine Glucose POC Glucose 50 L Lactic Acid Calcium Phosphorus Magnesium Ferritin ALT Ammonia Troponin T C-Reactive Protein NT-Pro-B Natriuret Pep Total Protein Albumin TSH Coronavirus (PCR) Positive A 08/20/21 08/20/21 08/20/21 01:41 02:35 03:41 WBC RBC Hgb Hct RDW Lymph % (Auto) Seg Neutrophils % Seg Neuts % (Manual) Lymphocytes % (Manual) Seg Neutrophils # Seg Neutrophils # Man Lymphocytes # (Manual) PT ABG pH ABG pO2 ABG HCO3 ABG O2 Saturation ABG Base Excess ABG Hemoglobin Sodium Potassium Chloride BUN Creatinine Glucose POC Glucose 54 L 40 L 13 L Lactic Acid Calcium Phosphorus Magnesium Ferritin ALT Ammonia Troponin T C-Reactive Protein NT-Pro-B Natriuret Pep Total Protein Albumin TSH Coronavirus (PCR) 08/20/21 08/20/21 08/20/21 04:15 04:15 04:15 WBC 14.6 H RBC Hgb Hct RDW 20.7 H Lymph % (Auto) 9.9 L Seg Neutrophils % 82.4 H Seg Neuts % (Manual) Lymphocytes % (Manual) Seg Neutrophils # 12.0 H Seg Neutrophils # Man Lymphocytes # (Manual) PT ABG pH ABG pO2 ABG HCO3 ABG O2 Saturation ABG Base Excess ABG Hemoglobin Sodium 132 L Potassium Chloride 93.8 L BUN Creatinine 2.7 H Glucose 52 L POC Glucose Lactic Acid 3.40 H* Calcium 7.1 L Phosphorus Magnesium Ferritin ALT Ammonia Troponin T C-Reactive Protein NT-Pro-B Natriuret Pep Total Protein 4.9 L Albumin 2.6 L TSH Coronavirus (PCR) 08/20/21 08/20/21 08/20/21 05:28 06:33 07:37 WBC RBC Hgb Hct RDW Lymph % (Auto) Seg Neutrophils % Seg Neuts % (Manual) Lymphocytes % (Manual) Seg Neutrophils # Seg Neutrophils # Man Lymphocytes # (Manual) PT ABG pH ABG pO2 ABG HCO3 ABG O2 Saturation ABG Base Excess ABG Hemoglobin Sodium Potassium Chloride BUN Creatinine Glucose POC Glucose 51 L 67 L 59 L Lactic Acid Calcium Phosphorus Magnesium Ferritin ALT Ammonia Troponin T C-Reactive Protein NT-Pro-B Natriuret Pep Total Protein Albumin TSH Coronavirus (PCR) 08/20/21 08/20/21 08/20/21 11:55 12:31 13:37 WBC RBC Hgb Hct RDW Lymph % (Auto) Seg Neutrophils % Seg Neuts % (Manual) Lymphocytes % (Manual) Seg Neutrophils # Seg Neutrophils # Man Lymphocytes # (Manual) PT ABG pH 7.526 H ABG pO2 166.8 H ABG HCO3 ABG O2 Saturation 99.1 H ABG Base Excess ABG Hemoglobin 8.7 L Sodium Potassium Chloride BUN Creatinine Glucose POC Glucose 152 H 150 H Lactic Acid Calcium Phosphorus Magnesium Ferritin ALT Ammonia Troponin T C-Reactive Protein NT-Pro-B Natriuret Pep Total Protein Albumin TSH Coronavirus (PCR) 08/20/21 08/20/21 08/20/21 15:47 17:53 23:19 WBC RBC Hgb Hct RDW Lymph % (Auto) Seg Neutrophils % Seg Neuts % (Manual) Lymphocytes % (Manual) Seg Neutrophils # Seg Neutrophils # Man Lymphocytes # (Manual) PT ABG pH ABG pO2 ABG HCO3 ABG O2 Saturation ABG Base Excess ABG Hemoglobin Sodium Potassium Chloride BUN Creatinine Glucose POC Glucose 204 H 223 H 217 H Lactic Acid Calcium Phosphorus Magnesium Ferritin ALT Ammonia Troponin T C-Reactive Protein NT-Pro-B Natriuret Pep Total Protein Albumin TSH Coronavirus (PCR) 08/21/21 08/21/21 08/21/21 04:46 04:46 04:46 WBC 23.9 H RBC 2.55 L Hgb 7.8 L D Hct 23.6 L D RDW 20.2 H Lymph % (Auto) Seg Neutrophils % Seg Neuts % (Manual) 97.0 H Lymphocytes % (Manual) 1.0 L Seg Neutrophils # Seg Neutrophils # Man 23.2 H Lymphocytes # (Manual) 0.2 L PT ABG pH ABG pO2 ABG HCO3 ABG O2 Saturation ABG Base Excess ABG Hemoglobin Sodium 122 L D Potassium Chloride 87.0 L BUN 23 H Creatinine 3.8 H Glucose 166 H POC Glucose Lactic Acid Calcium 6.8 L Phosphorus 1.60 L Magnesium 1.60 L Ferritin 1787.0 H ALT Ammonia Troponin T C-Reactive Protein 10.60 H NT-Pro-B Natriuret Pep Total Protein Albumin TSH Coronavirus (PCR) 08/21/21 08/21/21 08/21/21 05:11 08:18 11:10 WBC RBC Hgb Hct RDW Lymph % (Auto) Seg Neutrophils % Seg Neuts % (Manual) Lymphocytes % (Manual) Seg Neutrophils # Seg Neutrophils # Man Lymphocytes # (Manual) PT ABG pH 7.495 H ABG pO2 141.5 H ABG HCO3 26.2 H ABG O2 Saturation ABG Base Excess ABG Hemoglobin 7.9 L Sodium Potassium Chloride BUN Creatinine Glucose POC Glucose 151 H 141 H Lactic Acid Calcium Phosphorus Magnesium Ferritin ALT Ammonia Troponin T C-Reactive Protein NT-Pro-B Natriuret Pep Total Protein Albumin TSH Coronavirus (PCR) 08/21/21 08/21/21 08/21/21 14:42 16:43 23:34 WBC RBC Hgb Hct RDW Lymph % (Auto) Seg Neutrophils % Seg Neuts % (Manual) Lymphocytes % (Manual) Seg Neutrophils # Seg Neutrophils # Man Lymphocytes # (Manual) PT ABG pH ABG pO2 ABG HCO3 ABG O2 Saturation ABG Base Excess ABG Hemoglobin Sodium 121 L Potassium 5.2 H Chloride 88.1 L BUN 28 H Creatinine 3.9 H Glucose 130 H POC Glucose 113 H 171 H Lactic Acid Calcium 6.7 L Phosphorus Magnesium 2.80 H Ferritin ALT Ammonia Troponin T C-Reactive Protein NT-Pro-B Natriuret Pep Total Protein Albumin TSH Coronavirus (PCR) 08/22/21 08/22/21 08/22/21 05:09 05:09 05:40 WBC 25.0 H RBC 2.55 L Hgb 7.8 L Hct 23.5 L RDW 21.1 H Lymph % (Auto) Seg Neutrophils % Seg Neuts % (Manual) Lymphocytes % (Manual) Seg Neutrophils # Seg Neutrophils # Man Lymphocytes # (Manual) PT ABG pH 7.513 H ABG pO2 ABG HCO3 ABG O2 Saturation ABG Base Excess ABG Hemoglobin 8.6 L Sodium 135 L D Potassium Chloride BUN 20 H Creatinine 2.9 H Glucose POC Glucose Lactic Acid Calcium 7.6 L Phosphorus 1.40 L D Magnesium Ferritin ALT Ammonia Troponin T C-Reactive Protein NT-Pro-B Natriuret Pep Total Protein Albumin TSH Coronavirus (PCR) 08/22/21 08/22/21 11:37 12:09 WBC RBC Hgb Hct RDW Lymph % (Auto) Seg Neutrophils % Seg Neuts % (Manual) Lymphocytes % (Manual) Seg Neutrophils # Seg Neutrophils # Man Lymphocytes # (Manual) PT ABG pH ABG pO2 ABG HCO3 ABG O2 Saturation ABG Base Excess ABG Hemoglobin Sodium Potassium Chloride BUN Creatinine Glucose POC Glucose 122 H 121 H Lactic Acid Calcium Phosphorus Magnesium Ferritin ALT Ammonia Troponin T C-Reactive Protein NT-Pro-B Natriuret Pep Total Protein Albumin TSH Coronavirus (PCR) Chest x-ray: image reviewed Allied health notes reviewed: RT
--- NOTE | 2021-08-22 16:26 | Progress Note ---
Assessment and Plan Impression * End-stage renal disease on maintenance hemodialysis * Acute hypoxic respiratory failure * COVID-19 pneumonia * Hypokalemia * Hyponatremia * Anemia secondary to ESRD * Diabetes * Hypertension Recommendations * Continue hemodialysis MWF * UF as tolerated * Vent management per primary team * Maintain MAP>65 - pressors prn * Antibiotic therapy as per primary team and infectious diseases * Adjust diet and meds for ESRD state * Epogen with dialysis * No IV, BP or venipuncture in her access arm * Avoid nephrotoxins * Monitor fluid status and electrolytes closely Subjective Date of service: 08/22/21 Principal diagnosis: Hypoglycemia Interval history: No acute events overnight. Patient remains intubated Objective - Vital Signs Vital signs: Vital Signs - 12hr 08/22/21 08/22/21 08/22/21 04:31 04:45 05:00 Temperature Pulse Rate 84 80 79 Pulse Rate [ Anterior Bilateral] Pulse Rate [ From Monitor] Respiratory 9 L 18 18 Rate Respiratory Rate [Anterior Bilateral] Blood Pressure 123/33 128/31 130/31 O2 Sat by Pulse 100 100 100 Oximetry 08/22/21 08/22/21 08/22/21 05:15 05:31 05:45 Temperature Pulse Rate 80 80 82 Pulse Rate [ Anterior Bilateral] Pulse Rate [ From Monitor] Respiratory 17 18 18 Rate Respiratory Rate [Anterior Bilateral] Blood Pressure 130/31 139/35 135/46 O2 Sat by Pulse 100 100 100 Oximetry 08/22/21 08/22/21 08/22/21 06:00 06:15 06:31 Temperature Pulse Rate 82 86 83 Pulse Rate [ Anterior Bilateral] Pulse Rate [ From Monitor] Respiratory 18 18 18 Rate Respiratory Rate [Anterior Bilateral] Blood Pressure 122/38 122/38 132/42 O2 Sat by Pulse 100 100 100 Oximetry 08/22/21 08/22/21 08/22/21 06:45 07:00 07:15 Temperature Pulse Rate 82 83 85 Pulse Rate [ Anterior Bilateral] Pulse Rate [ From Monitor] Respiratory 18 18 19 Rate Respiratory Rate [Anterior Bilateral] Blood Pressure 120/36 144/44 144/44 O2 Sat by Pulse 100 100 100 Oximetry 08/22/21 08/22/21 08/22/21 07:31 07:45 08:00 Temperature 98.1 F Pulse Rate 82 84 91 H Pulse Rate [ 72 Anterior Bilateral] Pulse Rate [ From Monitor] Respiratory 18 18 Rate Respiratory 18 Rate [Anterior Bilateral] Blood Pressure 143/42 151/39 168/47 O2 Sat by Pulse 100 100 100 Oximetry 08/22/21 08/22/21 08/22/21 08:01 08:08 08:15 Temperature Pulse Rate 99 H 85 Pulse Rate [ Anterior Bilateral] Pulse Rate [ 63 From Monitor] Respiratory 15 14 18 Rate Respiratory Rate [Anterior Bilateral] Blood Pressure 169/47 169/47 O2 Sat by Pulse 100 99 100 Oximetry 08/22/21 08/22/21 08/22/21 08:31 08:45 09:00 Temperature Pulse Rate 92 H 93 H 88 Pulse Rate [ Anterior Bilateral] Pulse Rate [ From Monitor] Respiratory 17 18 17 Rate Respiratory Rate [Anterior Bilateral] Blood Pressure 148/58 142/35 150/44 O2 Sat by Pulse 99 99 99 Oximetry 08/22/21 08/22/21 08/22/21 09:15 09:31 09:45 Temperature Pulse Rate 89 89 92 H Pulse Rate [ Anterior Bilateral] Pulse Rate [ From Monitor] Respiratory 18 17 19 Rate Respiratory Rate [Anterior Bilateral] Blood Pressure 150/44 137/40 136/34 O2 Sat by Pulse 99 100 100 Oximetry 08/22/21 08/22/21 08/22/21 10:00 10:15 10:31 Temperature Pulse Rate 95 H 89 90 Pulse Rate [ Anterior Bilateral] Pulse Rate [ From Monitor] Respiratory 18 18 18 Rate Respiratory Rate [Anterior Bilateral] Blood Pressure 160/44 160/44 166/52 O2 Sat by Pulse 100 100 100 Oximetry 08/22/21 08/22/21 08/22/21 10:45 11:00 11:15 Temperature Pulse Rate 88 90 89 Pulse Rate [ Anterior Bilateral] Pulse Rate [ From Monitor] Respiratory 18 18 18 Rate Respiratory Rate [Anterior Bilateral] Blood Pressure 151/42 155/39 155/39 O2 Sat by Pulse 100 100 100 Oximetry 08/22/21 08/22/21 08/22/21 11:31 11:45 12:00 Temperature 99.8 F H Pulse Rate 88 92 H 91 H Pulse Rate [ Anterior Bilateral] Pulse Rate [ From Monitor] Respiratory 18 18 18 Rate Respiratory Rate [Anterior Bilateral] Blood Pressure 152/48 162/43 159/39 O2 Sat by Pulse 100 100 100 Oximetry 08/22/21 08/22/21 08/22/21 12:15 12:31 12:45 Temperature Pulse Rate 91 H 88 90 Pulse Rate [ Anterior Bilateral] Pulse Rate [ From Monitor] Respiratory 18 18 18 Rate Respiratory Rate [Anterior Bilateral] Blood Pressure 159/39 168/48 160/50 O2 Sat by Pulse 100 100 100 Oximetry 08/22/21 08/22/21 13:00 13:05 Temperature Pulse Rate 89 90 Pulse Rate [ Anterior Bilateral] Pulse Rate [ From Monitor] Respiratory 18 Rate Respiratory Rate [Anterior Bilateral] Blood Pressure 160/49 160/48 O2 Sat by Pulse 100 100 Oximetry - General Appearance General appearance: well-developed, well-nourished, intubated EENT: ATNC, other (ETT in place) Respiratory: Present: Other (coarse BS) Cardiology: regular, S1S2, other (systolic murmur) Gastrointestinal: normal, no tenderness, no distended Integumentary: no rash, warm and dry Neurologic: other (sedated) - Lab 08/22/21 05:09 08/22/21 05:09 Most recent lab results ABG pH 7.513 pH Units (7.350-7.450) H 08/22/21 05:40 ABG pCO2 32.4 mm Hg 08/22/21 05:40 ABG pO2 86.3 mm Hg (80.0-90.0) 08/22/21 05:40 ABG HCO3 25.4 mmol/L (20.0-26.0) 08/22/21 05:40 ABG O2 Saturation 97.8 % (95.0-99.0) 08/22/21 05:40 Calcium 7.6 mg/dL (8.4-10.2) L 08/22/21 05:09 Phosphorus 1.40 mg/dL (2.5-4.5) L D 08/22/21 05:09 Magnesium 2.20 mg/dL (1.7-2.3) 08/22/21 05:09 Medications & Allergies - Medications Allergies/Adverse Reactions: Allergies No Known Allergies Allergy (Verified 08/12/21 12:49) Home Medications: Home Medications Medication Instructions Recorded Confirmed Last Taken Type amLODIPine 10 mg PO DAILY #30 tablet 01/31/20 08/12/21 Unknown Rx Glimepiride 1 mg PO QDAY #30 tablet 04/21/20 08/12/21 Unknown Rx Diclofenac 1% [Diclofenac 1% 2 - 4 gm TP QID 08/12/21 08/12/21 Unknown History topical gel] Gabapentin 300 mg PO BID 08/12/21 08/12/21 Unknown History Mirtazapine [Remeron 15mg TAB] 15 mg PO QHS 08/12/21 08/12/21 Unknown History cloNIDine [Catapres] 0.1 mg PO BID 08/12/21 08/12/21 Unknown History Ascorbic Acid/Ascorbate Sodium 500 mg PO BID #30 08/17/21 Unknown Rx [Vitamin C 500 mg Tablet Chew] Cholecalciferol Vit D3 [Vitamin D3 1,000 unit PO QDAY #15 tablet 08/17/21 U nknown Rx 1,000 UNIT TAB] Dexamethasone 6 mg PO QID #5 tab 08/17/21 Unknown Rx Famotidine [Pepcid] 20 mg PO QAM #30 tablet 08/17/21 Unknown Rx Zinc Sulfate [Zinc] 220 mg PO BID #30 08/17/21 Unknown Rx Active Medications: Generic Name Dose Route Start Last Admin Trade Name Freq PRN Reason Stop Dose Admin Acetaminophen 650 mg 08/19/21 10:00 Acetaminophen 325 Mg Tab PO Q6H PRN Pain MILD(1-3)/Fever >100.5/MEHTA Albuterol 2.5 mg 08/19/21 11:00 Albuterol 2.5 Mg/3 Ml Nebu IH Q3HRT PRN Shortness Of Breath Albuterol/Ipratropium 1 ampul 08/19/21 14:00 08/22/21 08:00 Ipratropium/Albuterol Sulfate 3 Ml Ampul.Neb IH 1 ampul Q6HRT ANAHY Administration Budesonide 0.5 mg 08/19/21 20:00 08/22/21 08:00 Budesonide 0.5 Mg/2 Ml Nebu IH 0.5 mg Q12HRT ANAHY Administration Cholecalciferol 1,000 unit 08/19/21 10:00 08/22/21 09:55 Cholecalciferol (Vit D3) 1000 Unit (25 Mcg) Tab PO 1,000 unit QDAY ANAHY Administration Dextrose 0 ml 08/19/21 09:30 08/20/21 11:28 Dextrose 10% *Hypoglycemia IV 50 ml PRN PRN Administration Hypoglycemia Famotidine 20 mg 08/19/21 10:00 08/22/21 09:55 Famotidine 20 Mg Tab PO 20 mg QAM ANAHY Administration Fentanyl 50 mcg 08/20/21 10:03 Fentanyl 100 Mcg/2 Ml Inj IV Q2HR PRN For CPOT greater than 3 Heparin Sodium (Porcine) 5,000 unit 08/19/21 11:00 08/22/21 13:12 Heparin 5,000 Unit/1 Ml Vial SUB-Q 5,000 unit Q8HR ANAHY Administration Sodium Chloride 100 mls @ 999 mls/hr 08/19/21 11:14 Nacl 0.9% IV LEVI PRN Hypotension Dextrose 1,000 mls @ 50 mls/hr 08/20/21 11:00 08/20/21 15:52 D10w IV 0 mls/hr DIRECT ANAHY Infusion Meropenem/Sodium Chloride 1 gram in 100 mls @ 100 mls/hr 08/21/21 18:00 08/21/21 17:28 Merrem/Ns 1 Gram/100 Ml IV 100 mls/hr QPM ANAHY Administration Protocol Insulin Human Lispro 0 unit 08/19/21 12:00 08/22/21 11:39 Insulin Lispro 100 Unit/Ml SUB-Q Not Given Q6HR [facility] Protocol Metoclopramide HCl 5 mg 08/20/21 12:00 08/22/21 11:39 Metoclopramide 10 Mg/2 Ml Inj IV 5 mg Q8H ANAHY Administration Mirtazapine 15 mg 08/20/21 10:02 Mirtazapine 15 Mg Tab PO QHS PRN Sleep Naloxone HCl 0.1 mg 08/19/21 09:30 Naloxone 0.4 Mg/1 Ml Inj IV Q2MIN PRN Res Rate </= 8 or 02 SAT < 92% Senna 17.6 mg 08/20/21 22:00 08/21/21 22:32 Sennosides Oral Liqd 8.8 Mg/5 Ml Oral Liqd PO 17.6 mg QHS ANAHY Administration Simple Syrup 30 ml 08/19/21 17:44 08/20/21 03:48 Simple Syrup 15 Ml FEEDTUBE 30 ml PRN PRN Administration Hypoglycemia Sodium Chloride 10 ml 08/19/21 10:00 08/22/21 09:57 Sodium Chloride 0.9% 10 Ml Flush Syringe IV 10 ml BID ANAHY Administration Sodium Chloride 10 ml 08/19/21 09:30 Sodium Chloride 0.9% 10 Ml Flush Syringe IV PRN PRN LINE FLUSH Zinc Sulfate 220 mg 08/19/21 11:00 08/22/21 09:55 Zinc Sulfate 220 Mg Cap PO 220 mg BID ANAHY Administration
[2021-08-22] MEDS: MEROPENEM/NS 1 GRAM/100 ML 1 GRAM/100 ML BAG IV SCH (17:32)
[2021-08-22] MEDS: SENNOSIDES ORAL LIQD 8.8 MG/5 ML ORAL LIQD PO SCH (22:55)
[2021-08-23] MEDS: INSULIN LISPRO 100 UNIT/ML SUB-Q SCH ×4 (00:53→18:16)
[2021-08-23] MEDS: IPRATROPIUM/ALBUTEROL SULFATE 3 ML AMPUL.NEB IH SCH ×4 (02:21→19:43)
[2021-08-23] MEDS: METOCLOPRAMIDE 10 MG/2 ML INJ IV SCH ×3 (04:33→23:00)
[2021-08-23 05:09] LABS: Hematocrit 22.4 % (30.3-42.9); Hemoglobin 7.2 gm/dl (10.1-14.3); Mean Corpuscular HGB Conc 32 % (30-34); Mean Corpuscular Volume 93 fl (79-97); Platelet Count 317 K/mm3 (140-440); Red Blood Count 2.41 M/mm3 (3.65-5.03)
[2021-08-23 05:16] LABS: ABG Base Excess 2.4 mmol/L (-2.0-3.0); ABG HCO3 26.1 mmol/L (20.0-26.0); ABG Methemoglobin 0.6 % (0.0-1.5); ABG Oxygen Saturation 98.2 % (95.0-99.0); ABG PCO2 36.2 mm Hg; ABG PH 7.475 pH Units (7.350-7.450); ABG PO2 111.8 mm Hg (80.0-90.0)
[2021-08-23 05:17] LABS: Red Cell Distribution Width 22.1 % (13.2-15.2)
[2021-08-23 05:24] LABS: Calcium 6.8 mg/dL (8.4-10.2)
[2021-08-23] MEDS: HEPARIN 5,000 UNIT/1 ML VIAL SUB-Q SCH ×3 (06:08→22:55)
[2021-08-23] MEDS: BUDESONIDE 0.5 MG/2 ML NEBU IH SCH ×2 (08:04→19:43)
[2021-08-23] MEDS: ZINC SULFATE 220 MG CAP PO SCH ×2 (09:12→22:55)
[2021-08-23] MEDS: CHOLECALCIFEROL (VIT D3) 1000 UNIT (25 mcg) TAB PO SCH (09:12)
[2021-08-23] MEDS: FAMOTIDINE 20 MG TAB PO SCH (09:12)
[2021-08-23] MEDS: amLODIPine 10 MG TAB PO SCH (10:51)
--- NOTE | 2021-08-23 14:15 | Progress Note ---
Assessment and Plan Acute Hypoxemic Respiratory Failure on MVS -Sepsis -Recurrent hypoglycemic events -h/o COVID Pneumonia -Possible Aspiration -Leukocytosis -Acute Metabolic Encephalopathy -Hypomagnesemia -End-stage renal disease -Congestive heart failure with preserved EF chronic -Start amlodipine for better blood pressure control -Decrease set RR to 14, to see if she will start triggering -continue to titrate supplemental oxygen SpO2 keep 89-92% -continue Daily SAT and SBT assessment , readiness to wean daily -VAP bundle addressed, aspiration HOB>30 -continue lung protective strategies -continue bronchodilators with pulmonary hygiene per RT -wean per pulmonary driven protocols otherwise -prn anlagesia fro CPOT score>3 -Maintain sleep wake cycle, avoid delirium -OGT in place on tube feedings, no hypoglycemia- accucheck with glycemic control. Keep blood glucose <180 -avoid nephrotoxins, renally dose all medications -Supportive HD and UF. Renal following -On Cefepime and Vancomycin( pulse dosing) -Trend temperature curve and WCC -Stress ulcer and VTE prophylaxis (Famotidine and Heparin) -Supportive transfusions as clinically indicated to keep HbG >7 g/dL -CXR and ABG in the morning -continue mobility, off loading, and frequent turning per facility protocol to prevent pressure ulcers -continue other care per attending / other consultants COVID SPECIFIC INTERVENTIONS - COVID-19 PCR positive -Airborne and contact isolation per facility protocol CONDITION: CRITICAL PROGNOSIS: GUARDED CODE STATUS: FULL CODE The high probability of a clinically significant, sudden or life-threatening deterioration of the [respiratory, endocrine, neurology, renal ] system(s) required my full and direct attention, intervention and personal management. The aggregate critical care time was [33] minutes without overlap. Time includes spent on; [x] Data Review and interpretation [x] Patient assessment and monitoring of vital signs [x] Documentation [x] Medication orders and management Subjective Date of service: 08/23/21 Principal diagnosis: Hypoglycemia Interval history: This is a 86-year-old female with known past medical history of DM, ESRD on HD, HTN, who was recent hospitalized for COVID pneumonia admitted this time with severe hypoglycemia and acute hypoxemic respiratory failure requiring ventilatory support. Follow up: Acute hypoxemic respiratory failure; Acute encephalopathy; severe p ersistent hypoglycemia; ESRD on HD Seen and examined. Vitals, labs, medications,chart reviewed. Discussed with nursing and respiratory staff Awake and alert tis morning, obeying simple commands. Hypertensive MVS: PRVC 18/300/+6/30% Was placed on SBT this morning- apneic episodes Objective - Exam Narrative Exam: Constitutional: no acute distress, other (orally intuabted to MVS, elderly woman) Eyes: non-icteric ENT: oropharynx moist, other (OGT, ETT at 23cm) Neck: supple, no lymphadenopathy, other (Right EJ) Effort: normal Ascultation: Bilateral: diminished breath sounds, rhonchi Cardiovascular: regular rate and rhythm, other (S1,S2) Gastrointestinal: normoactive bowel sounds, soft, non-tender, non-distended Integumentary: normal Extremities: no cyanosis, no edema Neurologic: pupils equal and round,awke, alert, obeying simple commands Vital Signs - 12hr 08/23/21 08/23/21 08/23/21 02:15 02:22 02:31 Temperature Pulse Rate 86 84 Pulse Rate [ 87 Anterior Bilateral] Pulse Rate [ From Monitor] Respiratory 18 18 Rate Respiratory 18 Rate [Anterior Bilateral] Blood Pressure 171/46 172/54 O2 Sat by Pulse 100 100 Oximetry 08/23/21 08/23/21 08/23/21 02:45 03:00 03:15 Temperature Pulse Rate 81 94 H 81 Pulse Rate [ Anterior Bilateral] Pulse Rate [ From Monitor] Respiratory 18 19 22 Rate Respiratory Rate [Anterior Bilateral] Blood Pressure 170/56 169/46 169/46 O2 Sat by Pulse 100 100 100 Oximetry 08/23/21 08/23/21 08/23/21 03:31 03:45 04:00 Temperature 98.3 F Pulse Rate 82 83 83 Pulse Rate [ Anterior Bilateral] Pulse Rate [ From Monitor] Respiratory 18 19 18 Rate Respiratory Rate [Anterior Bilateral] Blood Pressure 180/54 178/45 188/54 O2 Sat by Pulse 100 100 100 Oximetry 08/23/21 08/23/21 08/23/21 04:15 04:31 04:33 Temperature Pulse Rate 82 81 80 Pulse Rate [ Anterior Bilateral] Pulse Rate [ From Monitor] Respiratory 18 18 Rate Respiratory Rate [Anterior Bilateral] Blood Pressure 188/54 176/50 176/50 O2 Sat by Pulse 100 100 100 Oximetry 08/23/21 08/23/21 08/23/21 04:45 05:00 05:15 Temperature Pulse Rate 80 82 81 Pulse Rate [ Anterior Bilateral] Pulse Rate [ From Monitor] Respiratory 19 19 18 Rate Respiratory Rate [Anterior Bilateral] Blood Pressure 181/51 175/43 175/43 O2 Sat by Pulse 100 92 Oximetry 08/23/21 08/23/21 08/23/21 05:31 05:45 06:00 Temperature Pulse Rate 81 83 80 Pulse Rate [ Anterior Bilateral] Pulse Rate [ 85 From Monitor] Respiratory 17 18 18 Rate Respiratory Rate [Anterior Bilateral] Blood Pressure 179/50 185/147 173/40 O2 Sat by Pulse 64 L 92 93 Oximetry 08/23/21 08/23/21 08/23/21 06:15 06:31 06:45 Temperature Pulse Rate 82 82 80 Pulse Rate [ Anterior Bilateral] Pulse Rate [ From Monitor] Respiratory 18 13 18 Rate Respiratory Rate [Anterior Bilateral] Blood Pressure 173/40 174/46 168/51 O2 Sat by Pulse 93 94 94 Oximetry 08/23/21 08/23/21 08/23/21 07:00 07:15 07:24 Temperature 98.9 F Pulse Rate 81 81 Pulse Rate [ Anterior Bilateral] Pulse Rate [ From Monitor] Respiratory 17 18 Rate Respiratory Rate [Anterior Bilateral] Blood Pressure 172/42 172/42 O2 Sat by Pulse 94 91 Oximetry 08/23/21 08/23/21 08/23/21 07:31 07:36 07:45 Temperature Pulse Rate 80 81 81 Pulse Rate [ Anterior Bilateral] Pulse Rate [ 81 From Monitor] Respiratory 18 18 18 Rate Respiratory Rate [Anterior Bilateral] Blood Pressure 182/45 185/36 O2 Sat by Pulse 90 94 91 Oximetry 08/23/21 08/23/21 08/23/21 08:00 08:15 08:30 Temperature Pulse Rate 78 78 97 H Pulse Rate [ Anterior Bilateral] Pulse Rate [ From Monitor] Respiratory 16 15 Rate Respiratory Rate [Anterior Bilateral] Blood Pressure 171/33 171/33 183/76 O2 Sat by Pulse 94 88 99 Oximetry 08/23/21 08/23/21 08/23/21 08:45 09:00 09:15 Temperature Pulse Rate 82 81 81 Pulse Rate [ Anterior Bilateral] Pulse Rate [ From Monitor] Respiratory Rate Respiratory Rate [Anterior Bilateral] Blood Pressure 179/52 184/45 184/45 O2 Sat by Pulse 100 100 Oximetry 08/23/21 08/23/21 08/23/21 09:30 09:46 09:47 Temperature Pulse Rate 79 80 82 Pulse Rate [ Anterior Bilateral] Pulse Rate [ From Monitor] Respiratory 18 17 Rate Respiratory Rate [Anterior Bilateral] Blood Pressure 183/76 193/48 197/51 O2 Sat by Pulse 100 Oximetry 08/23/21 08/23/21 08/23/21 10:00 10:16 10:30 Temperature Pulse Rate 79 79 80 Pulse Rate [ Anterior Bilateral] Pulse Rate [ From Monitor] Respiratory 14 17 18 Rate Respiratory Rate [Anterior Bilateral] Blood Pressure 212/68 186/63 179/46 O2 Sat by Pulse Oximetry 08/23/21 08/23/21 08/23/21 10:39 10:46 10:51 Temperature Pulse Rate 82 87 87 Pulse Rate [ Anterior Bilateral] Pulse Rate [ From Monitor] Respiratory 14 Rate Respiratory Rate [Anterior Bilateral] Blood Pressure 205/63 205/63 O2 Sat by Pulse 98 Oximetry 08/23/21 08/23/21 08/23/21 11:00 11:16 11:26 Temperature 97.5 F L Pulse Rate 87 81 Pulse Rate [ Anterior Bilateral] Pulse Rate [ From Monitor] Respiratory 16 16 Rate Respiratory Rate [Anterior Bilateral] Blood Pressure 205/63 205/63 O2 Sat by Pulse 88 100 Oximetry 08/23/21 08/23/21 08/23/21 11:30 11:46 12:00 Temperature Pulse Rate 81 81 83 Pulse Rate [ Anterior Bilateral] Pulse Rate [ From Monitor] Respiratory 16 16 16 Rate Respiratory Rate [Anterior Bilateral] Blood Pressure 205/63 198/60 198/60 O2 Sat by Pulse 100 100 100 Oximetry 08/23/21 08/23/21 08/23/21 12:16 12:30 12:36 Temperature Pulse Rate 93 H 81 82 Pulse Rate [ Anterior Bilateral] Pulse Rate [ From Monitor] Respiratory 23 17 Rate Respiratory Rate [Anterior Bilateral] Blood Pressure 197/45 197/45 195/39 O2 Sat by Pulse 100 99 Oximetry 08/23/21 08/23/21 08/23/21 12:46 13:00 13:16 Temperature Pulse Rate 76 79 76 Pulse Rate [ Anterior Bilateral] Pulse Rate [ From Monitor] Respiratory 12 15 15 Rate Respiratory Rate [Anterior Bilateral] Blood Pressure 195/39 195/39 112/48 O2 Sat by Pulse 100 100 100 Oximetry 08/23/21 08/23/21 13:30 14:00 Temperature Pulse Rate 76 Pulse Rate [ Anterior Bilateral] Pulse Rate [ 84 From Monitor] Respiratory 17 14 Rate Respiratory Rate [Anterior Bilateral] Blood Pressure 117/48 O2 Sat by Pulse 100 100 Oximetry CBC and BMP: 08/24/21 04:00 08/24/21 04:00 ABG, PT/INR, D-dimer: ABG ABG pH 7.475 pH Units (7.350-7.450) H 08/23/21 04:54 ABG pCO2 36.2 mm Hg 08/23/21 04:54 ABG pO2 111.8 mm Hg (80.0-90.0) H 08/23/21 04:54 ABG O2 Saturation 98.2 % (95.0-99.0) 08/23/21 04:54 PT/INR, D-dimer PT 15.6 Sec. (12.2-14.9) H 08/19/21 04:53 INR 1.12 (0.87-1.13) 08/19/21 04:53 Abnormal lab findings: Abnormal Labs 08/19/21 08/19/21 08/19/21 04:53 04:53 04:53 WBC 13.0 H RBC 3.03 L Hgb 9.1 L Hct 28.8 L RDW 20.5 H Lymph % (Auto) Seg Neutrophils % Seg Neuts % (Manual) 96.0 H Lymphocytes % (Manual) 1.0 L Seg Neutrophils # Seg Neutrophils # Man 12.5 H Lymphocytes # (Manual) 0.1 L PT 15.6 H ABG pH ABG pO2 ABG HCO3 ABG O2 Saturation ABG Base Excess ABG Hemoglobin Sodium 132 L D Potassium Chloride 96.8 L BUN Creatinine 3.6 H Glucose 599 H* POC Glucose Lactic Acid Calcium 6.6 L D Phosphorus Magnesium 1.50 L Ferritin ALT 6 L Ammonia Troponin T 0.042 H C-Reactive Protein NT-Pro-B Natriuret Pep Total Protein 5.4 L Albumin 2.4 L TSH Coronavirus (PCR) 08/19/21 08/19/21 08/19/21 04:53 04:53 05:35 WBC RBC Hgb Hct RDW Lymph % (Auto) Seg Neutrophils % Seg Neuts % (Manual) Lymphocytes % (Manual) Seg Neutrophils # Seg Neutrophils # Man Lymphocytes # (Manual) PT ABG pH 7.520 H ABG pO2 152.6 H ABG HCO3 26.3 H ABG O2 Saturation ABG Base Excess 3.4 H ABG Hemoglobin 7.9 L Sodium Potassium Chloride BUN Creatinine Glucose POC Glucose Lactic Acid 2.10 H* Calcium Phosphorus Magnesium Ferritin ALT Ammonia 10.0 L Troponin T C-Reactive Protein NT-Pro-B Natriuret Pep Total Protein Albumin TSH Coronavirus (PCR) 08/19/21 08/19/21 08/19/21 06:01 07:54 08:30 WBC RBC Hgb Hct RDW Lymph % (Auto) Seg Neutrophils % Seg Neuts % (Manual) Lymphocytes % (Manual) Seg Neutrophils # Seg Neutrophils # Man Lymphocytes # (Manual) PT ABG pH ABG pO2 ABG HCO3 ABG O2 Saturation ABG Base Excess ABG Hemoglobin Sodium Potassium Chloride BUN Creatinine Glucose POC Glucose < 10 L Lactic Acid Calcium Phosphorus Magnesium Ferritin ALT Ammonia Troponin T C-Reactive Protein NT-Pro-B Natriuret Pep 08560 H Total Protein Albumin TSH 4.850 H Coronavirus (PCR) 08/19/21 08/19/21 08/19/21 08:30 08:37 09:43 WBC RBC Hgb Hct RDW Lymph % (Auto) Seg Neutrophils % Seg Neuts % (Manual) Lymphocytes % (Manual) Seg Neutrophils # Seg Neutrophils # Man Lymphocytes # (Manual) PT ABG pH ABG pO2 ABG HCO3 ABG O2 Saturation ABG Base Excess ABG Hemoglobin Sodium Potassium Chloride BUN Creatinine Glucose POC Glucose 115 H < 10 L Lactic Acid 3.20 H* Calcium Phosphorus Magnesium Ferritin ALT Ammonia Troponin T C-Reactive Protein NT-Pro-B Natriuret Pep Total Protein Albumin TSH Coronavirus (PCR) 08/19/21 08/19/21 08/19/21 10:07 11:05 11:49 WBC RBC Hgb Hct RDW Lymph % (Auto) Seg Neutrophils % Seg Neuts % (Manual) Lymphocytes % (Manual) Seg Neutrophils # Seg Neutrophils # Man Lymphocytes # (Manual) PT ABG pH ABG pO2 ABG HCO3 ABG O2 Saturation ABG Base Excess ABG Hemoglobin Sodium Potassium Chloride BUN Creatinine Glucose POC Glucose 109 H 32 L 164 H Lactic Acid Calcium Phosphorus Magnesium Ferritin ALT Ammonia Troponin T C-Reactive Protein NT-Pro-B Natriuret Pep Total Protein Albumin TSH Coronavirus (PCR) 08/19/21 08/19/21 08/19/21 14:03 16:57 18:23 WBC RBC Hgb Hct RDW Lymph % (Auto) Seg Neutrophils % Seg Neuts % (Manual) Lymphocytes % (Manual) Seg Neutrophils # Seg Neutrophils # Man Lymphocytes # (Manual) PT ABG pH ABG pO2 ABG HCO3 ABG O2 Saturation ABG Base Excess ABG Hemoglobin Sodium Potassium Chloride BUN Creatinine Glucose POC Glucose 51 L 57 L 50 L Lactic Acid Calcium Phosphorus Magnesium Ferritin ALT Ammonia Troponin T C-Reactive Protein NT-Pro-B Natriuret Pep Total Protein Albumin TSH Coronavirus (PCR) 08/19/21 08/19/21 08/19/21 19:15 21:42 23:29 WBC RBC Hgb Hct RDW Lymph % (Auto) Seg Neutrophils % Seg Neuts % (Manual) Lymphocytes % (Manual) Seg Neutrophils # Seg Neutrophils # Man Lymphocytes # (Manual) PT ABG pH ABG pO2 ABG HCO3 ABG O2 Saturation ABG Base Excess ABG Hemoglobin Sodium Potassium Chloride BUN Creatinine Glucose 26 L* POC Glucose 57 L 42 L Lactic Acid Calcium Phosphorus Magnesium Ferritin ALT Ammonia Troponin T C-Reactive Protein NT-Pro-B Natriuret Pep Total Protein Albumin TSH Coronavirus (PCR) 08/19/21 08/19/21 08/20/21 Unknown Unknown 00:37 WBC RBC Hgb Hct RDW Lymph % (Auto) Seg Neutrophils % Seg Neuts % (Manual) Lymphocytes % (Manual) Seg Neutrophils # Seg Neutrophils # Man Lymphocytes # (Manual) PT ABG pH 7.499 H ABG pO2 239.2 H ABG HCO3 27.6 H ABG O2 Saturation 99.4 H ABG Base Excess 4.3 H ABG Hemoglobin 11.3 L Sodium Potassium Chloride BUN Creatinine Glucose POC Glucose 50 L Lactic Acid Calcium Phosphorus Magnesium Ferritin ALT Ammonia Troponin T C-Reactive Protein NT-Pro-B Natriuret Pep Total Protein Albumin TSH Coronavirus (PCR) Positive A 08/20/21 08/20/21 08/20/21 01:41 02:35 03:41 WBC RBC Hgb Hct RDW Lymph % (Auto) Seg Neutrophils % Seg Neuts % (Manual) Lymphocytes % (Manual) Seg Neutrophils # Seg Neutrophils # Man Lymphocytes # (Manual) PT ABG pH ABG pO2 ABG HCO3 ABG O2 Saturation ABG Base Excess ABG Hemoglobin Sodium Potassium Chloride BUN Creatinine Glucose POC Glucose 54 L 40 L 13 L Lactic Acid Calcium Phosphorus Magnesium Ferritin ALT Ammonia Troponin T C-Reactive Protein NT-Pro-B Natriuret Pep Total Protein Albumin TSH Coronavirus (PCR) 08/20/21 08/20/21 08/20/21 04:15 04:15 04:15 WBC 14.6 H RBC Hgb Hct RDW 20.7 H Lymph % (Auto) 9.9 L Seg Neutrophils % 82.4 H Seg Neuts % (Manual) Lymphocytes % (Manual) Seg Neutrophils # 12.0 H Seg Neutrophils # Man Lymphocytes # (Manual) PT ABG pH ABG pO2 ABG HCO3 ABG O2 Saturation ABG Base Excess ABG Hemoglobin Sodium 132 L Potassium Chloride 93.8 L BUN Creatinine 2.7 H Glucose 52 L POC Glucose Lactic Acid 3.40 H* Calcium 7.1 L Phosphorus Magnesium Ferritin ALT Ammonia Troponin T C-Reactive Protein NT-Pro-B Natriuret Pep Total Protein 4.9 L Albumin 2.6 L TSH Coronavirus (PCR) 08/20/21 08/20/21 08/20/21 05:28 06:33 07:37 WBC RBC Hgb Hct RDW Lymph % (Auto) Seg Neutrophils % Seg Neuts % (Manual) Lymphocytes % (Manual) Seg Neutrophils # Seg Neutrophils # Man Lymphocytes # (Manual) PT ABG pH ABG pO2 ABG HCO3 ABG O2 Saturation ABG Base Excess ABG Hemoglobin Sodium Potassium Chloride BUN Creatinine Glucose POC Glucose 51 L 67 L 59 L Lactic Acid Calcium Phosphorus Magnesium Ferritin ALT Ammonia Troponin T C-Reactive Protein NT-Pro-B Natriuret Pep Total Protein Albumin TSH Coronavirus (PCR) 08/20/21 08/20/21 08/20/21 11:55 12:31 13:37 WBC RBC Hgb Hct RDW Lymph % (Auto) Seg Neutrophils % Seg Neuts % (Manual) Lymphocytes % (Manual) Seg Neutrophils # Seg Neutrophils # Man Lymphocytes # (Manual) PT ABG pH 7.526 H ABG pO2 166.8 H ABG HCO3 ABG O2 Saturation 99.1 H ABG Base Excess ABG Hemoglobin 8.7 L Sodium Potassium Chloride BUN Creatinine Glucose POC Glucose 152 H 150 H Lactic Acid Calcium Phosphorus Magnesium Ferritin ALT Ammonia Troponin T C-Reactive Protein NT-Pro-B Natriuret Pep Total Protein Albumin TSH Coronavirus (PCR) 08/20/21 08/20/21 08/20/21 15:47 17:53 23:19 WBC RBC Hgb Hct RDW Lymph % (Auto) Seg Neutrophils % Seg Neuts % (Manual) Lymphocytes % (Manual) Seg Neutrophils # Seg Neutrophils # Man Lymphocytes # (Manual) PT ABG pH ABG pO2 ABG HCO3 ABG O2 Saturation ABG Base Excess ABG Hemoglobin Sodium Potassium Chloride BUN Creatinine Glucose POC Glucose 204 H 223 H 217 H Lactic Acid Calcium Phosphorus Magnesium Ferritin ALT Ammonia Troponin T C-Reactive Protein NT-Pro-B Natriuret Pep Total Protein Albumin TSH Coronavirus (PCR) 08/21/21 08/21/21 08/21/21 04:46 04:46 04:46 WBC 23.9 H RBC 2.55 L Hgb 7.8 L D Hct 23.6 L D RDW 20.2 H Lymph % (Auto) Seg Neutrophils % Seg Neuts % (Manual) 97.0 H Lymphocytes % (Manual) 1.0 L Seg Neutrophils # Seg Neutrophils # Man 23.2 H Lymphocytes # (Manual) 0.2 L PT ABG pH ABG pO2 ABG HCO3 ABG O2 Saturation ABG Base Excess ABG Hemoglobin Sodium 122 L D Potassium Chloride 87.0 L BUN 23 H Creatinine 3.8 H Glucose 166 H POC Glucose Lactic Acid Calcium 6.8 L Phosphorus 1.60 L Magnesium 1.60 L Ferritin 1787.0 H ALT Ammonia Troponin T C-Reactive Protein 10.60 H NT-Pro-B Natriuret Pep Total Protein Albumin TSH Coronavirus (PCR) 08/21/21 08/21/21 08/21/21 05:11 08:18 11:10 WBC RBC Hgb Hct RDW Lymph % (Auto) Seg Neutrophils % Seg Neuts % (Manual) Lymphocytes % (Manual) Seg Neutrophils # Seg Neutrophils # Man Lymphocytes # (Manual) PT ABG pH 7.495 H ABG pO2 141.5 H ABG HCO3 26.2 H ABG O2 Saturation ABG Base Excess ABG Hemoglobin 7.9 L Sodium Potassium Chloride BUN Creatinine Glucose POC Glucose 151 H 141 H Lactic Acid Calcium Phosphorus Magnesium Ferritin ALT Ammonia Troponin T C-Reactive Protein NT-Pro-B Natriuret Pep Total Protein Albumin TSH Coronavirus (PCR) 08/21/21 08/21/21 08/21/21 14:42 16:43 23:34 WBC RBC Hgb Hct RDW Lymph % (Auto) Seg Neutrophils % Seg Neuts % (Manual) Lymphocytes % (Manual) Seg Neutrophils # Seg Neutrophils # Man Lymphocytes # (Manual) PT ABG pH ABG pO2 ABG HCO3 ABG O2 Saturation ABG Base Excess ABG Hemoglobin Sodium 121 L Potassium 5.2 H Chloride 88.1 L BUN 28 H Creatinine 3.9 H Glucose 130 H POC Glucose 113 H 171 H Lactic Acid Calcium 6.7 L Phosphorus Magnesium 2.80 H Ferritin ALT Ammonia Troponin T C-Reactive Protein NT-Pro-B Natriuret Pep Total Protein Albumin TSH Coronavirus (PCR) 08/22/21 08/22/21 08/22/21 05:09 05:09 05:40 WBC 25.0 H RBC 2.55 L Hgb 7.8 L Hct 23.5 L RDW 21.1 H Lymph % (Auto) Seg Neutrophils % Seg Neuts % (Manual) Lymphocytes % (Manual) Seg Neutrophils # Seg Neutrophils # Man Lymphocytes # (Manual) PT ABG pH 7.513 H ABG pO2 ABG HCO3 ABG O2 Saturation ABG Base Excess ABG Hemoglobin 8.6 L Sodium 135 L D Potassium Chloride BUN 20 H Creatinine 2.9 H Glucose POC Glucose Lactic Acid Calcium 7.6 L Phosphorus 1.40 L D Magnesium Ferritin ALT Ammonia Troponin T C-Reactive Protein NT-Pro-B Natriuret Pep Total Protein Albumin TSH Coronavirus (PCR) 08/22/21 08/22/21 08/22/21 11:37 12:09 17:16 WBC RBC Hgb Hct RDW Lymph % (Auto) Seg Neutrophils % Seg Neuts % (Manual) Lymphocytes % (Manual) Seg Neutrophils # Seg Neutrophils # Man Lymphocytes # (Manual) PT ABG pH ABG pO2 ABG HCO3 ABG O2 Saturation ABG Base Excess ABG Hemoglobin Sodium Potassium Chloride BUN Creatinine Glucose POC Glucose 122 H 121 H 120 H Lactic Acid Calcium Phosphorus Magnesium Ferritin ALT Ammonia Troponin T C-Reactive Protein NT-Pro-B Natriuret Pep Total Protein Albumin TSH Coronavirus (PCR) 08/22/21 08/23/21 08/23/21 23:49 04:00 04:00 WBC 19.0 H RBC 2.41 L Hgb 7.2 L Hct 22.4 L RDW 22.1 H Lymph % (Auto) Seg Neutrophils % Seg Neuts % (Manual) Lymphocytes % (Manual) Seg Neutrophils # Seg Neutrophils # Man Lymphocytes # (Manual) PT ABG pH ABG pO2 ABG HCO3 ABG O2 Saturation ABG Base Excess ABG Hemoglobin Sodium Potassium Chloride BUN 32 H Creatinine 3.7 H Glucose 109 H POC Glucose 114 H Lactic Acid Calcium 6.8 L Phosphorus 4.70 H D Magnesium Ferritin ALT Ammonia Troponin T C-Reactive Protein NT-Pro-B Natriuret Pep Total Protein Albumin TSH Coronavirus (PCR) 08/23/21 08/23/21 08/23/21 04:54 05:40 11:10 WBC RBC Hgb Hct RDW Lymph % (Auto) Seg Neutrophils % Seg Neuts % (Manual) Lymphocytes % (Manual) Seg Neutrophils # Seg Neutrophils # Man Lymphocytes # (Manual) PT ABG pH 7.475 H ABG pO2 111.8 H ABG HCO3 26.1 H ABG O2 Saturation ABG Base Excess ABG Hemoglobin 7.5 L Sodium Potassium Chloride BUN Creatinine Glucose POC Glucose 108 H 107 H Lactic Acid Calcium Phosphorus Magnesium Ferritin ALT Ammonia Troponin T C-Reactive Protein NT-Pro-B Natriuret Pep Total Protein Albumin TSH Coronavirus (PCR) Chest x-ray: image reviewed (No new images, will order one) Allied health notes reviewed: RT
--- NOTE | 2021-08-23 14:57 | Progress Note ---
Assessment and Plan Assessment and plan: This is a 86-year-old female with known past medical history of DM, ESRD on HD, HTN, who was recent hospitalized for COVID pneumonia admitted this time with severe hypoglycemia and acute hypoxemic respiratory failure requiring ventilatory support. Hospital Course to Date: 08/20: Off sedation this am, open eyes spontaneously but does not follow any commands. Patient remains hypoglycemic throught the night despite D10W gtt and TF at goal. TF is now on hold this am due to vomiting. Reglan was initiated Q8hrs, X1 dose of IV steroids, and continue D10w and Q1hr BG check for now. Midodrine was also added TID for hypotension. Possible PST today once more awake, plan to start weaning vent for possible extubation. 08/21: Patient remains on thevent, mentation is unchanged, off sedation. BG improved, no more vomiting, patient is tolerating TF. On SSI Q6hrs, low NA this am, will switch D10w to NS at 50cc,a and mag and phosp repleted. Possible HD today per Nephro. BP also improved, continue midodrine TID. Family conference call today with the attending. Patient's condition and overall poor prognosis were thoroughly discussed with patient's family. They want to keep patient as a FULL code status and leaning towards Trach and PEG. D/w CCM, will continue to monitor patient's mental status over the weekend. If no improvement by tuesday, plan to consult General Surgery for possible trach and PEG tube placement. 08/22: Patient appears a lot more awake this am, however, still not following commands. BG remains stable, still tolerating TF. Patient is now hypertensive, will hold midodrine for now. Tolerated HD overnight. Electrolytes replaced, repeat lab in the am 08/23: Awake and following simple commands this am. Possible PST today, plan to wean for possible extubation. Hypertensive this am, home norvasc resumed. Patient is tolerating TF at goal and BG remains stable Assessment and Plan #Acute Hypoxemic Respiratory Failure #COVID Pneumonia #Possible Aspiration - Presented unresponsive, patient was intubated in the ED for airway proctection - Patient was recently treated for COVID with IV steroids - COVID PCR is still positive - This am vent setting: PRVC-30%,6,12,300 - AM ABG noted - CCM consulted, appreciate recommendations - Continue IV ABx per ID and Nebs per CCM - VAP bundle addressed - Aspiration precaution HOB above 30 - Daily SBT and SAT trials as tolerated - Daily ABG and CXR - Continue SPO2 monitoring for SPO2 goal above 92% #Sepsis #Leukocytosis #COVID Pneumonia #Possible Aspiration - Recent treated for COVID pneumonia with IV steroids - Patient was not a candidate for Remdesevir due to ESRD - Imaging still with persistent bilateral lungs opacities with minimal change from last admit - Repeat COVID PCR is positive - Sputum and blood culture is pending - ID is on consult - Continue empiric IV Abx for now per ID - Continue to F/U on B.cult - Daily CBC monitor #Hypertensive #Congestive heart failure with preserved EF- Chronic #NSTEMI - Home norvasc resumed - Continue blood pressure monitor per protocol - PRN Labetalol for SBP greater than 160 - Patient also presented with elevated BNP and elevated troponin - Cardiology on consult, appreciated recommendations - 08/19 Echo- EF 40-45% - SR noted on the monitor this am #Severe Hypoglycemia-resolved #H/o DM - Reported patient was with poor appetite at home and receiving oral diabetic agents - Presented with severe hypoglycemia, s/p X1 dose of IV steroids - Now on low SSI Q6hrs - TF resumed and patient is tolerating TF this am - Continue hypoglycemic protocol - Avoid Hypoglycemia #Acute Metabolic Encephalopathy - Most likely related to severe hypoglycemia - CT head noted with no acute findings- remote lacunar infarct, generalized atrophy, and microvascular ischemia - Awake and following commands - Continue to hold all sedative agents for now - PRN analgesia for CPOT greater than 3 - Avoid benzo to prevent delirium - Maintenance of sleep-wake cycle #End-Stage Renal Disease(ESRD) on HD - Nephrology on consult, appreciated recommendation - Continue HD per Nephro - Strict intake and output; Patient is anuric - Avoid nephrotoxic medications; Renally dose medications - Monitor and replace electrolytes as needed - Trend BMP #Nausea/Vomiting-resolved #Severe protein calorie malnutrition - Enteral Nutrition initiated - Tolerating TF this am, no vomiting reported - Continue Reglan [id number] - Continue BR - Continue PPI- Pepcid - Nutrition on consult for TF management #GI/DVT Prophylaxis - PPI- Pepcid - Continue AC- Hep SubQ - SCDs to bilateral lower extremities while in bed The high probability of a clinically significant, sudden or life threatening deterioration of the [multiple] system(s) required my full and direct attention, intervention and personal management. The aggregate critical care time was [60] minutes. This time is in addition to time spent performing reported procedures but includes the following: [x] Data Review and interpretation [x] Patient assessment and monitoring of vital signs [x] Documentation [x] Medication orders and management Disposition Plan: ICU Total Time Spent with Patient (Minutes): 60 History Interval history: Patient seen and examined at the bedside. Patient is awake and following simple commands this morning. Tolerating TF, BG remains stable. SIVAKUMAR overnight Hospitalist Physical - Constitutional Vitals: Temp Pulse Resp BP Pulse Ox 97.5 F L 84 16 125/53 100 08/23/21 11:26 08/23/21 14:46 08/23/21 14:46 08/23/21 14:46 08/23/21 14:46 General appearance: Present: no acute distress, other (Intubated) - EENT Eyes: Present: PERRL ENT: hearing intact - Neck Neck: Present: normal ROM - Respiratory Respiratory effort: normal Respiratory: bilateral: rhonchi - Cardiovascular Rhythm: regular Heart Sounds: Present: S1 & S2 - Extremities Extremities: no ischemia, pulses intact, pulses symmetrical Extremity abnormal: edema - Peripheral Assessment Generalized Edema Type: Non-pitting Edema Degree: 2+ Capillary Refill: < 3 seconds Skin Temperature: Warm Peripheral Pulses: within normal limits - Abdominal General gastrointestinal: soft, non-distended, normal bowel sounds - Integumentary Integumentary: Present: warm, dry - Psychiatric Psychiatric: appropriate mood/affect, cooperative, other (On the vent) - Neurologic Neurologic: moves all extremities, other (Awake following simple commands) - Allied Health Allied health notes reviewed: nursing HEART Score - HEART Score Troponin: Troponin T 0.042 ng/mL (0.00-0.029) H 08/19/21 04:53 Results - Labs CBC & Chem 7: 08/23/21 04:00 08/23/21 04:00 Labs: Laboratory Last Values WBC 19.0 K/mm3 (4.5-11.0) H 08/23/21 04:00 RBC 2.41 M/mm3 (3.65-5.03) L 08/23/21 04:00 Hgb 7.2 gm/dl (10.1-14.3) L 08/23/21 04:00 Hct 22.4 % (30.3-42.9) L 08/23/21 04:00 MCV 93 fl (79-97) 08/23/21 04:00 MCH 30 pg (28-32) 08/23/21 04:00 MCHC 32 % (30-34) 08/23/21 04:00 RDW 22.1 % (13.2-15.2) H 08/23/21 04:00 Plt Count 317 K/mm3 (140-440) 08/23/21 04:00 Lymph % (Auto) 9.9 % (13.4-35.0) L 08/20/21 04:15 [place] % (Auto) 4.5 % (0.0-7.3) 08/20/21 04:15 Eos % (Auto) 2.8 % (0.0-4.3) 08/20/21 04:15 Baso % (Auto) 0.4 % (0.0-1.8) 08/20/21 04:15 Lymph # (Auto) 1.4 K/mm3 (1.2-5.4) 08/20/21 04:15 [place] # (Auto) 0.7 K/mm3 (0.0-0.8) 08/20/21 04:15 Eos # (Auto) 0.4 K/mm3 (0.0-0.4) 08/20/21 04:15 Baso # (Auto) 0.1 K/mm3 (0.0-0.1) 08/20/21 04:15 Add Manual Diff Complete 08/21/21 04:46 Total Counted 100 08/21/21 04:46 Seg Neutrophils % Glue Line Operator 08/21/21 04:46 Seg Neuts % (Manual) 97.0 % (40.0-70.0) H 08/21/21 04:46 Band Neutrophils % 0 % 08/21/21 04:46 Lymphocytes % (Manual) 1.0 % (13.4-35.0) L 08/21/21 04:46 Reactive Lymphs % (Man) 0 % 08/21/21 04:46 Monocytes % (Manual) 2.0 % (0.0-7.3) 08/21/21 04:46 Eosinophils % (Manual) 0 % (0.0-4.3) 08/21/21 04:46 Basophils % (Manual) 0 % (0.0-1.8) 08/21/21 04:46 Metamyelocytes % 0 % 08/21/21 04:46 Myelocytes % 0 % 08/21/21 04:46 Promyelocytes % 0 % 08/21/21 04:46 Blast Cells % 0 % 08/21/21 04:46 Nucleated RBC % Not Reportable 08/21/21 04:46 Seg Neutrophils # 12.0 K/mm3 (1.8-7.7) H 08/20/21 04:15 Seg Neutrophils # Man 23.2 K/mm3 (1.8-7.7) H 08/21/21 04:46 Band Neutrophils # 0.0 K/mm3 08/21/21 04:46 Lymphocytes # (Manual) 0.2 K/mm3 (1.2-5.4) L 08/21/21 04:46 Abs React Lymphs (Man) 0.0 K/mm3 08/21/21 04:46 Monocytes # (Manual) 0.5 K/mm3 (0.0-0.8) 08/21/21 04:46 Eosinophils # (Manual) 0.0 K/mm3 (0.0-0.4) 08/21/21 04:46 Basophils # (Manual) 0.0 K/mm3 (0.0-0.1) 08/21/21 04:46 Metamyelocytes # 0.0 K/mm3 08/21/21 04:46 Myelocytes # 0.0 K/mm3 08/21/21 04:46 Promyelocytes # 0.0 K/mm3 08/21/21 04:46 Blast Cells # 0.0 K/mm3 08/21/21 04:46 WBC Morphology Not Reportable 08/21/21 04:46 Hypersegmented Neuts Not Reportable 08/21/21 04:46 Hyposegmented Neuts Not Reportable 08/21/21 04:46 Hypogranular Neuts Not Reportable 08/21/21 04:46 Smudge Cells Not Reportable 08/21/21 04:46 Toxic Granulation Not Reportable 08/21/21 04:46 Toxic Vacuolation Not Reportable 08/21/21 04:46 Dohle Bodies Not Reportable 08/21/21 04:46 Pelger-Huet Anomaly Not Reportable 08/21/21 04:46 Dhara Rods Not Reportable 08/21/21 04:46 Platelet Estimate Consistent w auto 08/21/21 04:46 Clumped Platelets Not Reportable 08/21/21 04:46 Plt Clumps, EDTA Not Reportable 08/21/21 04:46 Large Platelets Not Reportable 08/21/21 04:46 Giant Platelets Not Reportable 08/21/21 04:46 Platelet Satelliting Not Reportable 08/21/21 04:46 Plt Morphology Comment Not Reportable 08/21/21 04:46 RBC Morphology Not Reportable 08/21/21 04:46 Dimorphic RBCs Not Reportable 08/21/21 04:46 Polychromasia Few 08/21/21 04:46 Hypochromasia 1+ 08/21/21 04:46 Poikilocytosis Not Reportable 08/21/21 04:46 Anisocytosis 1+ 08/21/21 04:46 Microcytosis Not Reportable 08/21/21 04:46 Macrocytosis Not Reportable 08/21/21 04:46 Spherocytes Not Reportable 08/21/21 04:46 Pappenheimer Bodies Not Reportable 08/21/21 04:46 Sickle Cells Not Reportable 08/21/21 04:46 Target Cells Not Reportable 08/21/21 04:46 Tear Drop Cells Not Reportable 08/21/21 04:46 Ovalocytes Not Reportable 08/21/21 04:46 Helmet Cells Not Reportable 08/21/21 04:46 [place] Bodies Not Reportable 08/21/21 04:46 [place] Rings Not Reportable 08/21/21 04:46 Kor[place] Cells Not Reportable 08/21/21 04:46 Bite Cells Not Reportable 08/21/21 04:46 Crenated Cell Not Reportable 08/21/21 04:46 Elliptocytes Not Reportable 08/21/21 04:46 Acanthocytes (Spur) Not Reportable 08/21/21 04:46 Rouleaux Not Reportable 08/21/21 04:46 Hemoglobin C Crystals Not Reportable 08/21/21 04:46 Schistocytes Not Reportable 08/21/21 04:46 Malaria parasites Not Reportable 08/21/21 04:46 Keshav Bodies Not Reportable 08/21/21 04:46 Hem Pathologist Commnt No 08/21/21 04:46 PT 15.6 Sec. (12.2-14.9) H 08/19/21 04:53 INR 1.12 (0.87-1.13) 08/19/21 04:53 APTT 30.3 Sec. (24.2-36.6) 08/19/21 04:53 ABG pH 7.475 pH Units (7.350-7.450) H 08/23/21 04:54 ABG pCO2 36.2 mm Hg 08/23/21 04:54 ABG pO2 111.8 mm Hg (80.0-90.0) H 08/23/21 04:54 ABG HCO3 26.1 mmol/L (20.0-26.0) H 08/23/21 04:54 ABG O2 Saturation 98.2 % (95.0-99.0) 08/23/21 04:54 ABG O2 Content 10.4 (0.0-44) 08/23/21 04:54 ABG Base Excess 2.4 mmol/L (-2.0-3.0) 08/23/21 04:54 ABG Hemoglobin 7.5 gm/dl (12.0-16.0) L 08/23/21 04:54 ABG Carboxyhemoglobin 1.5 % (0.0-5.0) 08/23/21 04:54 ABG Methemoglobin 0.6 % (0.0-1.5) 08/23/21 04:54 Oxyhemoglobin 96.1 % (95.0-99.0) 08/23/21 04:54 FiO2 30 % 08/23/21 04:54 Sodium 137 mmol/L (137-145) 08/23/21 04:00 Potassium 3.9 mmol/L (3.6-5.0) 08/23/21 04:00 Chloride 98.5 mmol/L (98-107) 08/23/21 04:00 Carbon Dioxide 24 mmol/L (22-30) 08/23/21 04:00 Anion Gap 18 mmol/L 08/23/21 04:00 BUN 32 mg/dL (7-17) H 08/23/21 04:00 Creatinine 3.7 mg/dL (0.6-1.2) H 08/23/21 04:00 Estimated GFR 12 ml/min 08/23/21 04:00 BUN/Creatinine Ratio 9 % 08/23/21 04:00 Glucose 109 mg/dL (65-100) H 08/23/21 04:00 POC Glucose 107 mg/dL (70-105) H 08/23/21 11:10 Lactic Acid 3.40 mmol/L (0.7-2.0) H* 08/20/21 04:15 Calcium 6.8 mg/dL (8.4-10.2) L 08/23/21 04:00 Phosphorus 4.70 mg/dL (2.5-4.5) H D 08/23/21 04:00 Magnesium 2.30 mg/dL (1.7-2.3) 08/23/21 04:00 Ferritin 1787.0 ng/mL (10.0-200.0) H 08/21/21 04:46 Total Bilirubin 0.30 mg/dL (0.1-1.2) 08/20/21 04:15 AST 17 units/L (5-40) 08/20/21 04:15 ALT 7 units/L (7-56) 08/20/21 04:15 Alkaline Phosphatase 85 units/L (35-129) 08/20/21 04:15 Ammonia 10.0 umol/L (25-60) L 08/19/21 04:53 Total Creatine Kinase 105 units/L (30-135) 08/19/21 04:53 CK-MB (CK-2) 1.1 ng/mL (0.0-4.0) 08/19/21 04:53 CK-MB (CK-2) Rel Index 1.0 (0-4) 08/19/21 04:53 Troponin T 0.042 ng/mL (0.00-0.029) H 08/19/21 04:53 C-Reactive Protein 10.60 mg/dL (0.00-1.30) H 08/21/21 04:46 NT-Pro-B Natriuret Pep 71253 pg/mL (0-900) H 08/19/21 06:01 Total Protein 4.9 g/dL (6.3-8.2) L 08/20/21 04:15 Albumin 2.6 g/dL (3.9-5) L 08/20/21 04:15 Albumin/Globulin Ratio 1.1 % 08/20/21 04:15 Triglycerides 122 mg/dL (2-149) 08/19/21 04:53 Cholesterol 160 mg/dL (50-199) 08/19/21 04:53 LDL Cholesterol Direct 88 mg/dL (50-130) 08/19/21 04:53 HDL Cholesterol 47 mg/dL (40-59) 08/19/21 04:53 Cholesterol/HDL Ratio 3.40 % 08/19/21 04:53 TSH 4.850 mlU/mL (0.270-4.200) H 08/19/21 08:30 Random Vancomycin 17.8 ug/mL (0-40.0) 08/21/21 04:46 Coronavirus (PCR) Positive (Negative) A 08/19/21 Unknown Microbiology: Microbiology 08/19/21 06:01 Peripheral/Venous Blood Culture - Preliminary NO GROWTH AFTER 4 DAYS 08/19/21 06:01 Peripheral/Venous Blood Culture - Preliminary NO GROWTH AFTER 4 DAYS [place]/IV: Voiding Method Incontinent Active Medications - Current Medications Current Medications: Generic Name Dose Route Start Last Admin Trade Name Freq PRN Reason Stop Dose Admin Acetaminophen 650 mg 08/19/21 10:00 Acetaminophen 325 Mg Tab PO Q6H PRN Pain MILD(1-3)/Fever >100.5/MEHTA Albuterol 2.5 mg 08/19/21 11:00 Albuterol 2.5 Mg/3 Ml Nebu IH Q3HRT PRN Shortness Of Breath Albuterol/Ipratropium 1 ampul 08/19/21 14:00 08/23/21 14:45 Ipratropium/Albuterol Sulfate 3 Ml Ampul.Neb IH 1 ampul Q6HRT ANAHY Administration Amlodipine Besylate 10 mg 08/23/21 10:00 08/23/21 10:51 Amlodipine 10 Mg Tab PO 10 mg QDAY ANAHY Administration Budesonide 0.5 mg 08/19/21 20:00 08/23/21 08:04 Budesonide 0.5 Mg/2 Ml Nebu IH 0.5 mg Q12HRT ANAHY Administration Cholecalciferol 1,000 unit 08/19/21 10:00 08/23/21 09:12 Cholecalciferol (Vit D3) 1000 Unit (25 Mcg) Tab PO 1,000 unit QDAY ANAHY Administration Dextrose 0 ml 08/19/21 09:30 08/20/21 11:28 Dextrose 10% *Hypoglycemia IV 50 ml PRN PRN Administration Hypoglycemia Famotidine 20 mg 08/19/21 10:00 08/23/21 09:12 Famotidine 20 Mg Tab PO 20 mg QAM ANAHY Administration Fentanyl 50 mcg 08/20/21 10:03 Fentanyl 100 Mcg/2 Ml Inj IV Q2HR PRN For CPOT greater than 3 Heparin Sodium (Porcine) 5,000 unit 08/19/21 11:00 08/23/21 14:14 Heparin 5,000 Unit/1 Ml Vial SUB-Q 5,000 unit Q8HR ANAHY Administration Sodium Chloride 100 mls @ 999 mls/hr 08/19/21 11:14 Nacl 0.9% IV LEVI PRN Hypotension Dextrose 1,000 mls @ 50 mls/hr 08/20/21 11:00 08/20/21 15:52 D10w IV 0 mls/hr DIRECT ANAHY Infusion Meropenem/Sodium Chloride 1 gram in 100 mls @ 100 mls/hr 08/21/21 18:00 08/22/21 17:32 Merrem/Ns 1 Gram/100 Ml IV 100 mls/hr QPM ANAHY Administration Protocol Insulin Human Lispro 0 unit 08/19/21 12:00 08/23/21 11:51 Insulin Lispro 100 Unit/Ml SUB-Q Not Given Q6HR [facility] Protocol Labetalol HCl 10 mg 08/23/21 12:17 08/23/21 12:36 Labetalol 20 Mg/4 Ml Inj IV 10 mg Q4H PRN Administration Hypertension Metoclopramide HCl 5 mg 08/20/21 12:00 08/23/21 12:09 Metoclopramide 10 Mg/2 Ml Inj IV 5 mg Q8H ANAHY Administration Mirtazapine 15 mg 08/20/21 10:02 Mirtazapine 15 Mg Tab PO QHS PRN Sleep Naloxone HCl 0.1 mg 08/19/21 09:30 Naloxone 0.4 Mg/1 Ml Inj IV Q2MIN PRN Res Rate </= 8 or 02 SAT < 92% Senna 17.6 mg 08/20/21 22:00 08/22/21 22:55 Sennosides Oral Liqd 8.8 Mg/5 Ml Oral Liqd PO Not Given QHS ANAHY Simple Syrup 30 ml 08/19/21 17:44 08/20/21 03:48 Simple Syrup 15 Ml FEEDTUBE 30 ml PRN PRN Administration Hypoglycemia Sodium Chloride 10 ml 08/19/21 10:00 08/23/21 09:12 Sodium Chloride 0.9% 10 Ml Flush Syringe IV 10 ml BID ANAHY Administration Sodium Chloride 10 ml 08/19/21 09:30 Sodium Chloride 0.9% 10 Ml Flush Syringe IV PRN PRN LINE FLUSH Zinc Sulfate 220 mg 08/19/21 11:00 08/23/21 09:12 Zinc Sulfate 220 Mg Cap PO 220 mg BID ANAHY Administration Nutrition/Malnutrition Assess - Dietary Evaluation Nutrition/Malnutrition Findings: Nutrition Notes Start: 08/19/21 14:18 Freq: Status: Active Protocol: Document 08/22/21 17:21 MIGUEL ANGEL (Rec: 08/22/21 17:31 MIGUEL ANGEL [id number]) Nutrition Notes Initial or Follow up Brief Note Current Diet NPO. TF-Nepro w/CARBSTEADY @ 28 ml/hr (from D 08/19). Height 5 ft 2 in Weight 74.843 kg [place] Body Weight (kg) 50.00 BMI 30.2 Weight change and time frame No body weight change reported in 3 days. Weight Status Overweight Subjective/Other Information RD consult for routine F/U on TF tolerance. Pt continues on Mechanical Ventilation. TF continues as prescribed, with adjustment on the Flush quantity recommended. Percent of energy/protein needs met: Prescribed TF-Nepro w/ CARBSTEADY @ 28 ml/hr provides for energy/protein needs (1, 197 Kcal/54 g) during LOS, 100 % Kcal; 86% AA. #1 Nutrition Diagnosis Inadequate oral intake Diagnosis Progress(for reassessment Continues documentation) Is patient on ventilator? Yes Is Patient Ambulatory and/or Out of Bed No REE-([facility]-confined to bed) 1389.180 Kcal/Kg value to use for calculation 16 Approximate Energy Requirements Using 1197 kcal/Kg Calculation Used for Recommendations Kcal/kg Additional Notes Protein: 1-1.2 g/Kg; 63-76 g/ day. Fluids: 1 ml/Kcal, or as per MD. Nutrition Intervention Nutrition Support: Nepro w/CARBSTEADY @ 28 ml/hr. Flush: 100 ml water Q 4 hr, or as per MD. Kcal 1,197 Protein (gm) 54 Carbohydrates (gm) 107 Fat (gm) 64 Fluid (mL) 485 Fiber (gm) 8 % RDI: 100% Kcal; 86% AA. Goal #1 Provide at least 75% of energy /protein needs through Enteral Feeding during LOS. Goal #2 Maintain body weight within +/ -3% of admission body weight during LOS. Follow-Up By: 08/28/21 Additional Comments Continue monitoring TF tolerance and BM.
--- NOTE | 2021-08-23 15:43 | Progress Note ---
Assessment and Plan Impression * End-stage renal disease on maintenance hemodialysis * Acute hypoxic respiratory failure * COVID-19 pneumonia * Hypokalemia * Hyponatremia * Anemia secondary to ESRD * Diabetes * Hypertension Recommendations * Continue hemodialysis MWF * UF as tolerated * Vent management per primary team * Maintain MAP>65 - pressors prn * Antibiotic therapy as per primary team and infectious diseases * Adjust diet and meds for ESRD state * Epogen with dialysis * No IV, BP or venipuncture in her access arm * Avoid nephrotoxins * Monitor fluid status and electrolytes closely Subjective Date of service: 08/23/21 Principal diagnosis: Hypoglycemia Interval history: Remains intubated - TV 300, R 12, FiO2 30, PEEP 6 Objective - Vital Signs Vital signs: Vital Signs - 12hr 08/23/21 08/23/21 08/23/21 03:45 04:00 04:15 Temperature 98.3 F Pulse Rate 83 83 82 Pulse Rate [ Anterior Bilateral] Pulse Rate [ From Monitor] Respiratory 19 18 18 Rate Respiratory Rate [Anterior Bilateral] Blood Pressure 178/45 188/54 188/54 O2 Sat by Pulse 100 100 100 Oximetry 08/23/21 08/23/21 08/23/21 04:31 04:33 04:45 Temperature Pulse Rate 81 80 80 Pulse Rate [ Anterior Bilateral] Pulse Rate [ From Monitor] Respiratory 18 19 Rate Respiratory Rate [Anterior Bilateral] Blood Pressure 176/50 176/50 181/51 O2 Sat by Pulse 100 100 100 Oximetry 08/23/21 08/23/21 08/23/21 05:00 05:15 05:31 Temperature Pulse Rate 82 81 81 Pulse Rate [ Anterior Bilateral] Pulse Rate [ From Monitor] Respiratory 19 18 17 Rate Respiratory Rate [Anterior Bilateral] Blood Pressure 175/43 175/43 179/50 O2 Sat by Pulse 92 64 L Oximetry 08/23/21 08/23/21 08/23/21 05:45 06:00 06:15 Temperature Pulse Rate 83 80 82 Pulse Rate [ Anterior Bilateral] Pulse Rate [ 85 From Monitor] Respiratory 18 18 18 Rate Respiratory Rate [Anterior Bilateral] Blood Pressure 185/147 173/40 173/40 O2 Sat by Pulse 92 93 93 Oximetry 08/23/21 08/23/21 08/23/21 06:31 06:45 07:00 Temperature Pulse Rate 82 80 81 Pulse Rate [ Anterior Bilateral] Pulse Rate [ From Monitor] Respiratory 13 18 17 Rate Respiratory Rate [Anterior Bilateral] Blood Pressure 174/46 168/51 172/42 O2 Sat by Pulse 94 94 94 Oximetry 08/23/21 08/23/21 08/23/21 07:15 07:24 07:31 Temperature 98.9 F Pulse Rate 81 80 Pulse Rate [ Anterior Bilateral] Pulse Rate [ From Monitor] Respiratory 18 18 Rate Respiratory Rate [Anterior Bilateral] Blood Pressure 172/42 182/45 O2 Sat by Pulse 91 90 Oximetry 08/23/21 08/23/21 08/23/21 07:36 07:45 08:00 Temperature Pulse Rate 81 81 78 Pulse Rate [ Anterior Bilateral] Pulse Rate [ 81 From Monitor] Respiratory 18 18 16 Rate Respiratory Rate [Anterior Bilateral] Blood Pressure 185/36 171/33 O2 Sat by Pulse 94 91 94 Oximetry 08/23/21 08/23/21 08/23/21 08:15 08:30 08:45 Temperature Pulse Rate 78 97 H 82 Pulse Rate [ Anterior Bilateral] Pulse Rate [ From Monitor] Respiratory 15 Rate Respiratory Rate [Anterior Bilateral] Blood Pressure 171/33 183/76 179/52 O2 Sat by Pulse 88 99 Oximetry 08/23/21 08/23/21 08/23/21 09:00 09:15 09:30 Temperature Pulse Rate 81 81 79 Pulse Rate [ Anterior Bilateral] Pulse Rate [ From Monitor] Respiratory 18 Rate Respiratory Rate [Anterior Bilateral] Blood Pressure 184/45 184/45 183/76 O2 Sat by Pulse 100 100 Oximetry 08/23/21 08/23/21 08/23/21 09:46 09:47 10:00 Temperature Pulse Rate 80 82 79 Pulse Rate [ Anterior Bilateral] Pulse Rate [ From Monitor] Respiratory 17 14 Rate Respiratory Rate [Anterior Bilateral] Blood Pressure 193/48 197/51 212/68 O2 Sat by Pulse 100 Oximetry 08/23/21 08/23/21 08/23/21 10:16 10:30 10:39 Temperature Pulse Rate 79 80 82 Pulse Rate [ Anterior Bilateral] Pulse Rate [ From Monitor] Respiratory 17 18 Rate Respiratory Rate [Anterior Bilateral] Blood Pressure 186/63 179/46 O2 Sat by Pulse 98 Oximetry 08/23/21 08/23/21 08/23/21 10:46 10:51 11:00 Temperature Pulse Rate 87 87 87 Pulse Rate [ Anterior Bilateral] Pulse Rate [ From Monitor] Respiratory 14 16 Rate Respiratory Rate [Anterior Bilateral] Blood Pressure 205/63 205/63 205/63 O2 Sat by Pulse 88 Oximetry 08/23/21 08/23/21 08/23/21 11:16 11:26 11:30 Temperature 97.5 F L Pulse Rate 81 81 Pulse Rate [ Anterior Bilateral] Pulse Rate [ From Monitor] Respiratory 16 16 Rate Respiratory Rate [Anterior Bilateral] Blood Pressure 205/63 205/63 O2 Sat by Pulse 100 100 Oximetry 08/23/21 08/23/21 08/23/21 11:46 12:00 12:16 Temperature Pulse Rate 81 83 93 H Pulse Rate [ Anterior Bilateral] Pulse Rate [ From Monitor] Respiratory 16 16 23 Rate Respiratory Rate [Anterior Bilateral] Blood Pressure 198/60 198/60 197/45 O2 Sat by Pulse 100 100 100 Oximetry 08/23/21 08/23/21 08/23/21 12:30 12:36 12:46 Temperature Pulse Rate 81 82 76 Pulse Rate [ Anterior Bilateral] Pulse Rate [ From Monitor] Respiratory 17 12 Rate Respiratory Rate [Anterior Bilateral] Blood Pressure 197/45 195/39 195/39 O2 Sat by Pulse 99 100 Oximetry 08/23/21 08/23/21 08/23/21 13:00 13:16 13:30 Temperature Pulse Rate 79 76 76 Pulse Rate [ Anterior Bilateral] Pulse Rate [ From Monitor] Respiratory 15 15 17 Rate Respiratory Rate [Anterior Bilateral] Blood Pressure 195/39 112/48 117/48 O2 Sat by Pulse 100 100 100 Oximetry 08/23/21 08/23/21 08/23/21 13:46 14:00 14:16 Temperature Pulse Rate 77 78 80 Pulse Rate [ Anterior Bilateral] Pulse Rate [ 84 From Monitor] Respiratory 16 17 16 Rate Respiratory Rate [Anterior Bilateral] Blood Pressure 117/48 118/49 118/49 O2 Sat by Pulse 100 100 100 Oximetry 08/23/21 08/23/21 14:30 14:46 Temperature Pulse Rate 81 84 Pulse Rate [ 84 Anterior Bilateral] Pulse Rate [ From Monitor] Respiratory 17 16 Rate Respiratory 18 Rate [Anterior Bilateral] Blood Pressure 125/53 125/53 O2 Sat by Pulse 100 100 Oximetry - General Appearance General appearance: well-developed, well-nourished, intubated EENT: ATNC, other (ETT in place) Respiratory: Present: Clear to Ascultation Cardiology: regular, S1S2, systolic murmur (harsh SM at RUSB) Gastrointestinal: no distended (soft) Integumentary: no rash, warm and dry - Lab 08/23/21 04:00 08/23/21 04:00 Most recent lab results ABG pH 7.475 pH Units (7.350-7.450) H 08/23/21 04:54 ABG pCO2 36.2 mm Hg 08/23/21 04:54 ABG pO2 111.8 mm Hg (80.0-90.0) H 08/23/21 04:54 ABG HCO3 26.1 mmol/L (20.0-26.0) H 08/23/21 04:54 ABG O2 Saturation 98.2 % (95.0-99.0) 08/23/21 04:54 Calcium 6.8 mg/dL (8.4-10.2) L 08/23/21 04:00 Phosphorus 4.70 mg/dL (2.5-4.5) H D 08/23/21 04:00 Magnesium 2.30 mg/dL (1.7-2.3) 08/23/21 04:00 Medications & Allergies - Medications Allergies/Adverse Reactions: Allergies No Known Allergies Allergy (Verified 08/12/21 12:49) Home Medications: Home Medications Medication Instructions Recorded Confirmed Last Taken Type amLODIPine 10 mg PO DAILY #30 tablet 01/31/20 08/12/21 Unknown Rx Glimepiride 1 mg PO QDAY #30 tablet 04/21/20 08/12/21 Unknown Rx Diclofenac 1% [Diclofenac 1% 2 - 4 gm TP QID 08/12/21 08/12/21 Unknown History topical gel] Gabapentin 300 mg PO BID 08/12/21 08/12/21 Unknown History Mirtazapine [Remeron 15mg TAB] 15 mg PO QHS 08/12/21 08/12/21 Unknown History cloNIDine [Catapres] 0.1 mg PO BID 08/12/21 08/12/21 Unknown History Ascorbic Acid/Ascorbate Sodium 500 mg PO BID #30 08/17/21 Unknown Rx [Vitamin C 500 mg Tablet Chew] Cholecalciferol Vit D3 [Vitamin D3 1,000 unit PO QDAY #15 tablet 08/17/21 Unknown Rx 1,000 UNIT TAB] Dexamethasone 6 mg PO QID #5 tab 08/17/21 Unknown Rx Famotidine [Pepcid] 20 mg PO QAM #30 tablet 08/17/21 Unknown Rx Zinc Sulfate [Zinc] 220 mg PO BID #30 08/17/21 Unknown Rx Active Medications: Generic Name Dose Route Start Last Admin Trade Name Freq PRN Reason Stop Dose Admin Acetaminophen 650 mg 08/19/21 10:00 Acetaminophen 325 Mg Tab PO Q6H PRN Pain MILD(1-3)/Fever >100.5/MEHTA Albuterol 2.5 mg 08/19/21 11:00 Albuterol 2.5 Mg/3 Ml Nebu IH Q3HRT PRN Shortness Of Breath Albuterol/Ipratropium 1 ampul 08/19/21 14:00 08/23/21 14:45 Ipratropium/Albuterol Sulfate 3 Ml Ampul.Neb IH 1 ampul Q6HRT ANAHY Administration Amlodipine Besylate 10 mg 08/23/21 10:00 08/23/21 10:51 Amlodipine 10 Mg Tab PO 10 mg QDAY ANAHY Administration Budesonide 0.5 mg 08/19/21 20:00 08/23/21 08:04 Budesonide 0.5 Mg/2 Ml Nebu IH 0.5 mg Q12HRT ANAHY Administration Cholecalciferol 1,000 unit 08/19/21 10:00 08/23/21 09:12 Cholecalciferol (Vit D3) 1000 Unit (25 Mcg) Tab PO 1,000 unit QDAY ANAHY Administration Dextrose 0 ml 08/19/21 09:30 08/20/21 11:28 Dextrose 10% *Hypoglycemia IV 50 ml PRN PRN Administration Hypoglycemia Famotidine 20 mg 08/19/21 10:00 08/23/21 09:12 Famotidine 20 Mg Tab PO 20 mg QAM ANAHY Administration Fentanyl 50 mcg 08/20/21 10:03 Fentanyl 100 Mcg/2 Ml Inj IV Q2HR PRN For CPOT greater than 3 Heparin Sodium (Porcine) 5,000 unit 08/19/21 11:00 08/23/21 14:14 Heparin 5,000 Unit/1 Ml Vial SUB-Q 5,000 unit Q8HR ANAHY Administration Sodium Chloride 100 mls @ 999 mls/hr 08/19/21 11:14 Nacl 0.9% IV LEVI PRN Hypotension Dextrose 1,000 mls @ 50 mls/hr 08/20/21 11:00 08/20/21 15:52 D10w IV 0 mls/hr DIRECT ANAHY Infusion Meropenem/Sodium Chloride 1 gram in 100 mls @ 100 mls/hr 08/21/21 18:00 08/22/21 17:32 Merrem/Ns 1 Gram/100 Ml IV 100 mls/hr QPM ANAHY Administration Protocol Insulin Human Lispro 0 unit 08/19/21 12:00 08/23/21 11:51 Insulin Lispro 100 Unit/Ml SUB-Q Not Given Q6HR [facility] Protocol Labetalol HCl 10 mg 08/23/21 12:17 08/23/21 12:36 Labetalol 20 Mg/4 Ml Inj IV 10 mg Q4H PRN Administration Hypertension Metoclopramide HCl 5 mg 08/20/21 12:00 08/23/21 12:09 Metoclopramide 10 Mg/2 Ml Inj IV 5 mg Q8H ANAHY Administration Mirtazapine 15 mg 08/20/21 10:02 Mirtazapine 15 Mg Tab PO QHS PRN Sleep Naloxone HCl 0.1 mg 08/19/21 09:30 Naloxone 0.4 Mg/1 Ml Inj IV Q2MIN PRN Res Rate </= 8 or 02 SAT < 92% Senna 17.6 mg 08/20/21 22:00 08/22/21 22:55 Sennosides Oral Liqd 8.8 Mg/5 Ml Oral Liqd PO Not Given QHS ANAHY Simple Syrup 30 ml 08/19/21 17:44 08/20/21 03:48 Simple Syrup 15 Ml FEEDTUBE 30 ml PRN PRN Administration Hypoglycemia Sodium Chloride 10 ml 08/19/21 10:00 08/23/21 09:12 Sodium Chloride 0.9% 10 Ml Flush Syringe IV 10 ml BID ANAHY Administration Sodium Chloride 10 ml 08/19/21 09:30 Sodium Chloride 0.9% 10 Ml Flush Syringe IV PRN PRN LINE FLUSH Zinc Sulfate 220 mg 08/19/21 11:00 08/23/21 09:12 Zinc Sulfate 220 Mg Cap PO 220 mg BID ANAHY Administration
[2021-08-23] MEDS: MEROPENEM/NS 1 GRAM/100 ML 1 GRAM/100 ML BAG IV SCH (18:28)
[2021-08-23] MEDS: SENNOSIDES ORAL LIQD 8.8 MG/5 ML ORAL LIQD PO SCH (23:01)
[2021-08-24] MEDS: INSULIN LISPRO 100 UNIT/ML SUB-Q SCH ×4 (00:46→21:02)
[2021-08-24] MEDS: IPRATROPIUM/ALBUTEROL SULFATE 3 ML AMPUL.NEB IH SCH ×4 (01:16→20:09)
--- NOTE | 2021-08-24 02:41 | XRay Report ---
XR chest 1V ap INDICATION / CLINICAL INFORMATION: Respiratory Failure, on the vent. COMPARISON: 08/19/2021 FINDINGS: SUPPORT DEVICES: Unchanged. HEART /PULMONARY VASCULATURE: Unchanged. LUNGS / PLEURA: Airspace disease is improving compared to prior examination. No pneumothorax. IMPRESSION: 1. Improving airspace disease. Signer Name: Amador Nguyen MD Signed: 08/24/2021 2:37 AM Workstation Name: [id number]
[2021-08-24 05:42] LABS: Hematocrit 20.8 % (30.3-42.9); Hemoglobin 6.9 gm/dl (10.1-14.3); Mean Corpuscular HGB Conc 33 % (30-34); Mean Corpuscular Volume 94 fl (79-97); Platelet Count 308 K/mm3 (140-440); Red Blood Count 2.22 M/mm3 (3.65-5.03)
[2021-08-24 05:52] LABS: Calcium 6.9 mg/dL (8.4-10.2)
[2021-08-24 05:54] LABS: Red Cell Distribution Width 22.2 % (13.2-15.2)
[2021-08-24 06:07] LABS: ABG Base Excess 2.6 mmol/L (-2.0-3.0); ABG Methemoglobin 0.4 % (0.0-1.5); ABG Oxygen Saturation 98.1 % (95.0-99.0); ABG PCO2 34.8 mm Hg; ABG PH 7.491 pH Units (7.350-7.450); ABG PO2 105.3 mm Hg (80.0-90.0)
[2021-08-24] MEDS: METOCLOPRAMIDE 10 MG/2 ML INJ IV SCH ×3 (06:32→21:01)
[2021-08-24] MEDS: HEPARIN 5,000 UNIT/1 ML VIAL SUB-Q SCH ×3 (06:45→21:00)
[2021-08-24] MEDS: BUDESONIDE 0.5 MG/2 ML NEBU IH SCH ×2 (07:53→20:09)
[2021-08-24] MEDS ORDERED: SODIUM CHLORIDE 0.9% 500 ML 500 ML IV SCH (08:58)
[2021-08-24] MEDS: ZINC SULFATE 220 MG CAP PO SCH ×2 (10:20→21:01)
[2021-08-24] MEDS: FAMOTIDINE 20 MG TAB PO SCH (10:20)
[2021-08-24] MEDS: amLODIPine 10 MG TAB PO SCH (10:20)
[2021-08-24] MEDS: cloNIDine 0.1 MG TAB PO SCH ×2 (10:20→21:01)
[2021-08-24] MEDS: CHOLECALCIFEROL (VIT D3) 1000 UNIT (25 mcg) TAB PO SCH (10:20)
--- NOTE | 2021-08-24 10:47 | Progress Note ---
Assessment and Plan Impression * End-stage renal disease on maintenance hemodialysis * Acute hypoxic respiratory failure * COVID-19 pneumonia * Hypokalemia * Hyponatremia * Anemia secondary to ESRD * Diabetes * Hypertension * Hypocalcemia Recommendations * Continue hemodialysis MWF or prn, due today * UF as tolerated * Dialysate adjusted prn, note Ca 6.9, restart active vitamin D analog, higher Ca bath * Vent management per primary team * Maintain MAP>65 - pressors prn * Antibiotic therapy as per primary team and infectious diseases * Adjust diet and meds for ESRD state * Epogen with dialysis * No IV, BP or venipuncture in her access arm * Avoid nephrotoxins * Monitor fluid status and electrolytes closely Subjective Date of service: 08/24/21 Principal diagnosis: Hypoglycemia Interval history: Remains intubated - TV 300, R 12, FiO2 30, PEEP 6 Objective - Exam Narrative Exam: General appearance: well-developed, well-nourished, intubated EENT: ATNC, other (ETT in place) Respiratory: Present: Clear to Ascultation Cardiology: regular, S1S2, systolic murmur (harsh SM at RUSB) Gastrointestinal: no distended (soft) Integumentary: no rash, warm and dry Skin: intact - Vital Signs Vital signs: Vital Signs - 12hr 08/23/21 08/23/21 08/23/21 23:00 23:16 23:30 Temperature Pulse Rate 90 87 86 Pulse Rate [ Anterior Bilateral] Pulse Rate [ From Monitor] Respiratory 18 18 17 Rate Respiratory Rate [Anterior Bilateral] Blood Pressure 113/41 113/41 111/42 O2 Sat by Pulse 100 100 100 Oximetry 08/23/21 08/24/21 08/24/21 23:46 00:00 00:16 Temperature 98.6 F Pulse Rate 88 87 86 Pulse Rate [ Anterior Bilateral] Pulse Rate [ From Monitor] Respiratory 17 17 18 Rate Respiratory Rate [Anterior Bilateral] Blood Pressure 111/42 113/45 113/45 O2 Sat by Pulse 100 100 100 Oximetry 08/24/21 08/24/21 08/24/21 00:30 00:46 01:00 Temperature Pulse Rate 87 87 88 Pulse Rate [ Anterior Bilateral] Pulse Rate [ From Monitor] Respiratory 15 17 17 Rate Respiratory Rate [Anterior Bilateral] Blood Pressure 112/46 112/46 116/48 O2 Sat by Pulse 100 100 100 Oximetry 0208/24/21 08/24/21 01:16 01:30 01:46 Temperature Pulse Rate 88 92 H 94 H Pulse Rate [ 93 H Anterior Bilateral] Pulse Rate [ From Monitor] Respiratory 18 17 17 Rate Respiratory 12 Rate [Anterior Bilateral] Blood Pressure 116/48 122/52 122/52 O2 Sat by Pulse 100 100 100 Oximetry 08/24/21 08/24/21 08/24/21 02:00 02:16 02:30 Temperature Pulse Rate 90 84 87 Pulse Rate [ Anterior Bilateral] Pulse Rate [ 86 From Monitor] Respiratory 17 18 17 Rate Respiratory Rate [Anterior Bilateral] Blood Pressure 101/42 101/42 103/43 O2 Sat by Pulse 98 100 100 Oximetry 08/24/21 08/24/21 08/24/21 02:46 03:00 03:16 Temperature Pulse Rate 86 86 89 Pulse Rate [ Anterior Bilateral] Pulse Rate [ From Monitor] Respiratory 17 18 15 Rate Respiratory Rate [Anterior Bilateral] Blood Pressure 103/43 103/43 127/50 O2 Sat by Pulse 100 100 100 Oximetry 08/24/21 08/24/21 08/24/21 03:30 03:46 04:00 Temperature 97.6 F Pulse Rate 90 88 87 Pulse Rate [ Anterior Bilateral] Pulse Rate [ From Monitor] Respiratory 15 15 17 Rate Respiratory Rate [Anterior Bilateral] Blood Pressure 123/43 123/43 121/47 O2 Sat by Pulse 100 100 100 Oximetry 08/24/21 08/24/21 08/24/21 04:16 04:30 04:46 Temperature Pulse Rate 88 87 89 Pulse Rate [ Anterior Bilateral] Pulse Rate [ From Monitor] Respiratory 16 17 18 Rate Respiratory Rate [Anterior Bilateral] Blood Pressure 121/47 120/46 120/46 O2 Sat by Pulse 100 99 100 Oximetry 08/24/21 08/24/21 08/24/21 05:00 05:16 05:30 Temperature Pulse Rate 87 90 85 Pulse Rate [ Anterior Bilateral] Pulse Rate [ From Monitor] Respiratory 16 17 17 Rate Respiratory Rate [Anterior Bilateral] Blood Pressure 117/48 117/48 117/48 O2 Sat by Pulse 100 100 100 Oximetry 08/24/21 08/24/21 08/24/21 05:46 06:00 06:16 Temperature Pulse Rate 87 86 88 Pulse Rate [ Anterior Bilateral] Pulse Rate [ 86 From Monitor] Respiratory 17 17 16 Rate Respiratory Rate [Anterior Bilateral] Blood Pressure 117/48 117/48 117/48 O2 Sat by Pulse 100 100 100 Oximetry 08/24/21 08/24/21 08/24/21 06:30 06:46 07:00 Temperature Pulse Rate 88 91 H 85 Pulse Rate [ Anterior Bilateral] Pulse Rate [ From Monitor] Respiratory 17 18 18 Rate Respiratory Rate [Anterior Bilateral] Blood Pressure 117/48 165/42 176/56 O2 Sat by Pulse 100 100 100 Oximetry 08/24/21 08/24/21 08/24/21 07:16 07:30 07:46 Temperature Pulse Rate 86 90 89 Pulse Rate [ Anterior Bilateral] Pulse Rate [ From Monitor] Respiratory 17 17 16 Rate Respiratory Rate [Anterior Bilateral] Blood Pressure 176/56 185/51 179/51 O2 Sat by Pulse 100 100 100 Oximetry 08/24/21 08/24/21 08/24/21 07:50 07:53 08:00 Temperature 97.9 F Pulse Rate 97 H 90 Pulse Rate [ 98 H Anterior Bilateral] Pulse Rate [ From Monitor] Respiratory 12 Rate Respiratory 28 H Rate [Anterior Bilateral] Blood Pressure 179/51 166/75 O2 Sat by Pulse 100 100 Oximetry 08/24/21 08/24/21 08/24/21 08:16 08:30 08:46 Temperature Pulse Rate 92 H 96 H 98 H Pulse Rate [ Anterior Bilateral] Pulse Rate [ From Monitor] Respiratory 12 17 17 Rate Respiratory Rate [Anterior Bilateral] Blood Pressure 166/75 165/56 165/56 O2 Sat by Pulse 100 100 100 Oximetry 08/24/21 08/24/21 09:00 10:20 Temperature Pulse Rate 97 H 88 Pulse Rate [ Anterior Bilateral] Pulse Rate [ From Monitor] Respiratory 15 Rate Respiratory Rate [Anterior Bilateral] Blood Pressure 174/54 O2 Sat by Pulse 100 Oximetry - Lab 08/24/21 04:00 08/24/21 04:00 Most recent lab results ABG pH 7.491 pH Units (7.350-7.450) H 08/24/21 06:00 ABG pCO2 34.8 mm Hg 08/24/21 06:00 ABG pO2 105.3 mm Hg (80.0-90.0) H 08/24/21 06:00 ABG HCO3 26.0 mmol/L (20.0-26.0) 08/24/21 06:00 ABG O2 Saturation 98.1 % (95.0-99.0) 08/24/21 06:00 Calcium 6.9 mg/dL (8.4-10.2) L 08/24/21 04:00 Phosphorus 4.00 mg/dL (2.5-4.5) 08/24/21 04:00 Magnesium 2.30 mg/dL (1.7-2.3) 08/24/21 04:00 Medications & Allergies - Medications Allergies/Adverse Reactions: Allergies No Known Allergies Allergy (Verified 08/12/21 12:49) Home Medications: Home Medications Medication Instructions Recorded Confirmed Last Taken Type amLODIPine 10 mg PO DAILY #30 tablet 01/31/20 08/12/21 Unknown Rx Glimepiride 1 mg PO QDAY #30 tablet 04/21/20 08/12/21 Unknown Rx Diclofenac 1% [Diclofenac 1% 2 - 4 gm TP QID 08/12/21 08/12/21 Unknown History topical gel] Gabapentin 300 mg PO BID 08/12/21 08/12/21 Unknown History Mirtazapine [Remeron 15mg TAB] 15 mg PO QHS 08/12/21 08/12/21 Unknown History cloNIDine [Catapres] 0.1 mg PO BID 08/12/21 08/12/21 Unknown History Ascorbic Acid/Ascorbate Sodium 500 mg PO BID #30 08/17/21 Unknown Rx [Vitamin C 500 mg Tablet Chew] Cholecalciferol Vit D3 [Vitamin D3 1,000 unit PO QDAY #15 tablet 08/17/21 Unknown Rx 1,000 UNIT TAB] Dexamethasone 6 mg PO QID #5 tab 08/17/21 Unknown Rx Famotidine [Pepcid] 20 mg PO QAM #30 tablet 08/17/21 Unknown Rx Zinc Sulfate [Zinc] 220 mg PO BID #30 08/17/21 Unknown Rx Active Medications: Generic Name Dose Route Start Last Admin Trade Name Freq PRN Reason Stop Dose Admin Acetaminophen 650 mg 08/19/21 10:00 Acetaminophen 325 Mg Tab PO Q6H PRN Pain MILD(1-3)/Fever >100.5/MEHTA Albuterol 2.5 mg 08/19/21 11:00 Albuterol 2.5 Mg/3 Ml Nebu IH Q3HRT PRN Shortness Of Breath Albuterol/Ipratropium 1 ampul 08/19/21 14:00 08/24/21 07:53 Ipratropium/Albuterol Sulfate 3 Ml Ampul.Neb IH 1 ampul Q6HRT ANAHY Administration Amlodipine Besylate 10 mg 08/23/21 10:00 08/24/21 10:20 Amlodipine 10 Mg Tab PO 10 mg QDAY ANAHY Administration Budesonide 0.5 mg 08/19/21 20:00 08/24/21 07:53 Budesonide 0.5 Mg/2 Ml Nebu IH 0.5 mg Q12HRT ANAHY Administration Cholecalciferol 1,000 unit 08/19/21 10:00 08/24/21 10:20 Cholecalciferol (Vit D3) 1000 Unit (25 Mcg) Tab PO 1,000 unit QDAY ANAHY Administration Clonidine HCl 0.1 mg 08/24/21 10:00 08/24/21 10:20 Clonidine 0.1 Mg Tab PO 0.1 mg BID ANAHY Administration Dextrose 0 ml 08/19/21 09:30 08/20/21 11:28 Dextrose 10% *Hypoglycemia IV 50 ml PRN PRN Administration Hypoglycemia Famotidine 20 mg 08/19/21 10:00 08/24/21 10:20 Famotidine 20 Mg Tab PO 20 mg QAM ANAHY Administration Fentanyl 50 mcg 08/20/21 10:03 Fentanyl 100 Mcg/2 Ml Inj IV Q2HR PRN For CPOT greater than 3 Heparin Sodium (Porcine) 5,000 unit 08/19/21 11:00 08/23/21 22:55 Heparin 5,000 Unit/1 Ml Vial SUB-Q 5,000 unit Q8HR ANAHY Administration Sodium Chloride 100 mls @ 999 mls/hr 08/19/21 11:14 Nacl 0.9% IV LEVI PRN Hypotension Meropenem/Sodium Chloride 1 gram in 100 mls @ 100 mls/hr 08/21/21 18:00 08/23/21 18:28 Merrem/Ns 1 Gram/100 Ml IV 100 mls/hr QPM ANAHY Administration Protocol Sodium Chloride 500 mls @ 0 mls/hr 08/24/21 08:58 Nacl 0.9% 500 Ml IV 08/24/21 23:59 ONCE ANAHY As Directed Insulin Human Lispro 0 unit 08/19/21 12:00 08/24/21 06:00 Insulin Lispro 100 Unit/Ml SUB-Q Not Given Q6HR [facility] Protocol Labetalol HCl 10 mg 08/23/21 12:17 08/23/21 12:36 Labetalol 20 Mg/4 Ml Inj IV 10 mg Q4H PRN Administration Hypertension Metoclopramide HCl 5 mg 08/20/21 12:00 08/24/21 06:32 Metoclopramide 10 Mg/2 Ml Inj IV Not Given Q8H ANAHY Mirtazapine 15 mg 08/20/21 10:02 Mirtazapine 15 Mg Tab PO QHS PRN Sleep Naloxone HCl 0.1 mg 08/19/21 09:30 Naloxone 0.4 Mg/1 Ml Inj IV Q2MIN PRN Res Rate </= 8 or 02 SAT < 92% Senna 17.6 mg 08/20/21 22:00 08/23/21 23:01 Sennosides Oral Liqd 8.8 Mg/5 Ml Oral Liqd PO Not Given QHS ANAHY Simple Syrup 30 ml 08/19/21 17:44 08/20/21 03:48 Simple Syrup 15 Ml FEEDTUBE 30 ml PRN PRN Administration Hypoglycemia Sodium Chloride 10 ml 08/19/21 10:00 08/23/21 23:01 Sodium Chloride 0.9% 10 Ml Flush Syringe IV 10 ml BID ANAHY Administration Sodium Chloride 10 ml 08/19/21 09:30 Sodium Chloride 0.9% 10 Ml Flush Syringe IV PRN PRN LINE FLUSH Zinc Sulfate 220 mg 08/19/21 11:00 08/24/21 10:20 Zinc Sulfate 220 Mg Cap PO 220 mg BID ANAHY Administration
[2021-08-24] MEDS ORDERED: SODIUM CHLORIDE 0.9% 100 ML IV PRN (10:50)
--- NOTE | 2021-08-24 12:21 | Progress Note ---
Assessment and Plan Patient is an 86-year-old female with a past medical history of end-stage renal disease on hemodialysis, hypertension, diabetes, and recent COVID-19 infection who was brought to the ED today after the patient was found by family to be unresponsive Acute respiratory failure-pulmonology follow End-stage renal disease on hemodialysis-nephrology following Sepsis COVID-19-ID following NSTEMI suspect type II Anemia Hypoglycemia Hypomagnesemia Echo 08/19/2021-EF 40 to 45%. Mild concentric LVH. Doppler flow pattern suggests impaired LV relaxation. Right ventricular systolic function is normal. Echo bright density suspected in the right atrium. Moderate aortic stenosis. Highest mean aortic valve gradient is 21.6 mmHg. Mild aortic regurgitation. Mitral valve leaflets are thickened. Mitral valve leaflets are calcified. Moderate mitral regurgitation Echo03/2020 -Moderate concentric left ventricular hypertrophy.Left ventricular ejection fraction is 60-65%. There is moderately increased filling pressure consistent with grade 2 diastolic dysfunction. Aortic valve is tricuspid, sclerotic and focally calcified. Mild aortic stenosis. Mild to moderate aortic valve insufficiency. The left ventricular size is small. The aortic valve max velocity is 2.57 m/s. The peak gradient is 26.4 mmHg with a mean gradient of 16.0 mmHg, the left ventricle outflow tract measures 2.00 cm. CORNELIA (VTI) is 1.08 cm. Mild mitral valve regurgitation.Normal right ventricular size and wall th ickness. There is small pleural effusion in the left lateral region. There is small pleural effusion in the right lateral region.No pericardial effusion seen. Lexiscan MPI stress test 05/14/2019-normal myocardial perfusion without evidence of ischemia or prior infarction Plan: Due to renal function will avoid nephrotoxic agents including JORDANA/ ARB Will defer volume management to nephrology Continue amlodipine 10 mg p.o. daily for hypertension Agree with resuming patient clonidine for hypertension Due to decrease in EF will consider outpatient ischemic eval once patient is clinically stable Cardiac status otherwise stable we will see as needed Patient seen in conjunction with Dr. Moreira who agrees with this plan of care - Patient Problems (1) Acute encephalopathy Current Visit: Yes Status: Acute (2) COVID-19 Current Visit: Yes Status: Acute (3) Hypomagnesemia Current Visit: Yes Status: Acute (4) Malnutrition Current Visit: Yes Status: Acute (5) Acute metabolic encephalopathy due to hypoglycemia Current Visit: No Status: Acute (6) Acute respiratory failure with hypoxia Current Visit: No Status: Acute (7) Anemia in chronic illness Current Visit: No Status: Acute (8) ESRD (end stage renal disease) on dialysis Current Visit: No Status: Acute (9) Sepsis Current Visit: No Status: Acute Subjective Date of service: 08/24/21 Principal diagnosis: Hypoglycemia Interval history: Patient intubated and sedated Patient sinus 80s-90s on monitor with no events Objective Vital Signs Temp Pulse Pulse Pulse Resp Resp BP 08/24/21 11:36 94 H 111/36 08/24/21 11:16 81 14 118/34 08/24/21 11:00 79 15 169/44 08/24/21 10:46 81 16 169/44 08/24/21 10:30 82 17 169/44 08/24/21 10:20 88 08/24/21 10:16 93 H 16 161/43 08/24/21 10:00 92 H 16 200/47 08/24/21 09:46 112 H 24 200/47 08/24/21 09:30 111 H 21 174/54 08/24/21 09:16 97 H 17 174/54 08/24/21 09:00 97 H 15 174/54 08/24/21 08:46 98 H 17 165/56 08/24/21 08:30 96 H 17 165/56 08/24/21 08:16 92 H 12 166/75 08/24/21 08:00 97.9 F 81 12 166/75 08/24/21 07:53 98 H 28 H 08/24/21 07:50 97 H 179/51 08/24/21 07:46 89 16 179/51 08/24/21 07:30 90 17 185/51 08/24/21 07:16 86 17 176/56 08/24/21 07:00 85 18 176/56 08/24/21 06:46 91 H 18 165/42 08/24/21 06:30 88 17 117/48 08/24/21 06:16 88 16 117/48 08/24/21 06:00 86 86 17 117/48 08/24/21 05:46 87 17 117/48 08/24/21 05:30 85 17 117/48 08/24/21 05:16 90 17 117/48 02/21/22 05:00 87 16 117/48 02/21/22 04:46 89 18 120/46 02/21/22 04:30 87 17 120/46 02/21/22 04:16 88 16 121/47 02/21/22 04:00 97.6 F 87 17 121/47 02/21/22 03:46 88 15 123/43 02/21/22 03:30 90 15 123/43 02/21/22 03:16 89 15 127/50 02/21/22 03:00 86 18 103/43 02/21/22 02:46 86 17 103/43 02/21/22 02:30 87 17 103/43 02/21/22 02:16 84 18 101/42 02//22 02:00 90 86 17 101/42 02/21/22 01:46 94 H 17 122/52 02/21/22 01:30 92 H 17 122/52 02/21/22 01:16 88 93 H 18 12 116/48 02/21/22 01:00 88 17 116/48 02/21/22 00:46 87 17 112/46 02/21/22 00:30 87 15 112/46 02/21/22 00:16 86 18 113/45 02/21/22 00:00 98.6 F 87 17 113/45 02/20/22 23:46 88 17 111/42 02/20/22 23:30 86 17 111/42 02/20/22 23:16 87 18 113/41 02/20/22 23:00 90 18 113/41 02/20/22 22:46 89 17 118/50 02/20/22 22:30 92 H 18 118/50 02/20/22 22:16 106 H 19 120/49 02/20/22 22:00 88 88 15 120/49 02/20/22 21:46 89 16 130/44 02/20/22 21:30 90 15 130/44 02/20/22 21:16 90 15 118/54 02/20/22 21:00 93 H 16 118/54 02/20/22 20:46 92 H 15 113/47 02/20/22 20:30 92 H 15 113/47 02/20/22 20:16 92 H 13 107/43 02/20/22 20:00 98.2 F 91 H 16 119/46 02/20/22 19:51 91 H 12 08/23/21 19:46 87 16 119/46 08/23/21 19:37 85 119/46 08/23/21 19:30 85 16 119/46 08/23/21 19:16 87 16 128/54 08/23/21 19:02 86 15 128/54 08/23/21 19:00 91 H 15 128/54 08/23/21 18:46 91 H 17 127/53 08/23/21 18:30 87 16 127/53 08/23/21 18:16 83 15 117/51 08/23/21 18:00 83 86 17 117/51 08/23/21 17:46 79 15 109/47 08/23/21 17:30 82 14 109/47 08/23/21 17:16 84 14 114/52 08/23/21 17:11 97.5 F L 08/23/21 17:00 84 17 114/52 08/23/21 16:46 84 15 121/58 08/23/21 16:30 84 14 121/58 08/23/21 16:16 84 21 109/50 08/23/21 16:00 85 14 109/50 08/23/21 15:46 82 15 118/49 08/23/21 15:30 82 15 118/49 08/23/21 15:16 90 16 125/104 08/23/21 15:00 85 12 125/53 08/23/21 14:46 84 16 125/53 08/23/21 14:30 81 84 17 18 125/53 08/23/21 14:16 80 16 118/49 08/23/21 14:00 78 84 17 118/49 08/23/21 13:46 77 16 117/48 08/23/21 13:30 76 17 117/48 08/23/21 13:16 76 15 112/48 08/23/21 13:00 79 15 195/39 08/23/21 12:46 76 12 195/39 08/23/21 12:36 82 195/39 08/23/21 12:30 81 17 197/45 Pulse Ox 08/24/21 11:36 100 08/24/21 11:16 100 08/24/21 11:00 100 08/24/21 10:46 100 08/24/21 10:30 100 08/24/21 10:20 08/24/21 10:16 100 08/24/21 10:00 100 08/24/21 09:46 100 08/24/21 09:30 100 08/24/21 09:16 100 08/24/21 09:00 100 08/24/21 08:46 100 08/24/21 08:30 100 08/24/21 08:16 100 08/24/21 08:00 100 08/24/21 07:53 08/24/21 07:50 100 08/24/21 07:46 100 08/24/21 07:30 100 08/24/21 07:16 100 08/24/21 07:00 100 08/24/21 06:46 100 08/24/21 06:30 100 08/24/21 06:16 100 08/24/21 06:00 100 08/24/21 05:46 100 08/24/21 05:30 100 08/24/21 05:16 100 08/24/21 05:00 100 08/24/21 04:46 100 08/24/21 04:30 99 08/24/21 04:16 100 08/24/21 04:00 100 08/24/21 03:46 100 08/24/21 03:30 100 08/24/21 03:16 100 08/24/21 03:00 100 08/24/21 02:46 100 08/24/21 02:30 100 08/24/21 02:16 100 08/24/21 02:00 98 08/24/21 01:46 100 08/24/21 01:30 100 08/24/21 01:16 100 08/24/21 01:00 100 08/24/21 00:46 100 08/24/21 00:30 100 08/24/21 00:16 100 08/24/21 00:00 100 08/23/21 23:46 100 08/23/21 23:30 100 08/23/21 23:16 100 08/23/21 23:00 100 08/23/21 22:46 100 08/23/21 22:30 100 08/23/21 22:16 100 08/23/21 22:00 100 08/23/21 21:46 100 08/23/21 21:30 100 08/23/21 21:16 100 08/23/21 21:00 100 08/23/21 20:46 100 08/23/21 20:30 100 08/23/21 20:16 100 08/23/21 20:00 100 08/23/21 19:51 08/23/21 19:46 100 08/23/21 19:37 08/23/21 19:30 100 08/23/21 19:16 100 08/23/21 19:02 100 08/23/21 19:00 100 08/23/21 18:46 100 08/23/21 18:30 100 08/23/21 18:16 100 08/23/21 18:00 100 08/23/21 17:46 100 08/23/21 17:30 100 08/23/21 17:16 100 08/23/21 17:11 08/23/21 17:00 100 08/23/21 16:46 100 08/23/21 16:30 100 08/23/21 16:16 100 08/23/21 16:00 100 08/23/21 15:46 99 08/23/21 15:30 98 08/23/21 15:16 99 08/23/21 15:00 99 08/23/21 14:46 100 08/23/21 14:30 100 08/23/21 14:16 100 08/23/21 14:00 100 08/23/21 13:46 100 08/23/21 13:30 100 08/23/21 13:16 100 08/23/21 13:00 100 08/23/21 12:46 100 08/23/21 12:36 08/23/21 12:30 99 - Physical Examination General: Other (Intubated and sedated) Neck: Positive: trachea midline Cardiac: Positive: Reg Rate and Rhythm Lungs: Positive: Ventilated Respirations Neuro: Positive: Other (Unable to assess due to intubation and sedation) Abdomen: Positive: Soft Skin: Negative: Rash, Suspicious Lesions, Ulceration Extremities: Present: upper extr. pulses. Absent: edema - Labs and Meds CBC 08/24/21 Range/Units 04:00 WBC 15.5 H (4.5-11.0) K/mm3 RBC 2.22 L (3.65-5.03) M/mm3 Hgb 6.9 L (10.1-14.3) gm/dl Hct 20.8 L (30.3-42.9) % Plt Count 308 (140-440) K/mm3 Comprehensive Metabolic Panel 08/24/21 Range/Units 04:00 Sodium 136 L (137-145) mmol/L Potassium 4.0 (3.6-5.0) mmol/L Chloride 98.0 (98-107) mmol/L Carbon Dioxide 23 (22-30) mmol/L BUN 43 H (7-17) mg/dL Creatinine 4.1 H (0.6-1.2) mg/dL Glucose 104 H (65-100) mg/dL Calcium 6.9 L (8.4-10.2) mg/dL - Imaging and Cardiology Echo: report reviewed - Telemetry EKG Rhythm: Sinus Rhythm - EKG Sinus rhythms and dysrhythmias: sinus rhythm, sinus tachycardia Repolarization changes or abnormalities: nonspecific abnormality, ST segment, and/or T wave - Allied health notes Allied health notes reviewed: RT
--- NOTE | 2021-08-24 12:48 | Progress Note ---
Assessment and Plan Acute Hypoxemic Respiratory Failure on MVS Sepsis Recurrent hypoglycemic events h/o COVID Pneumonia Possible Aspiration Leukocytosis Acute Metabolic Encephalopathy Hypomagnesemia End stage renal disease Congestive heart failure with preserved EF (chronic) - for Dialysis today; continue per nephrology prescription for toxin and volume clearance - reduce set rate on MVS to 10/min re: alkalosis - transfuse 1 unit PRBC - begin SBT's in am - continue care as below otherwise; - Daily SAT and SBT assessment as tolerated - continue to wean supplemental oxygen for target O2 sat's > 90% acutely - VAP bundle addressed - continue lung protective strategies - continue bronchodilators with pulmonary hygiene per RT - wean per pulmonary driven protocols otherwise - avoid nephrotoxins, renally dose all medications - continue to avoid benzodiazepine's, reduce the possibility of delirium - AB's per ID rec's - prn analgesia per CPOT score - Maintenance of sleep-wake cycle, avoid delirium - continue enteral nutritional support at goal rate as tolerated - G.I. & VTE prophylaxis - PT/OT/ROM exercises - continue mobility protocols for pressure ulcer prophylaxis - Monitor hemodynamics closely - continue other care per attending / other consultants - discharge planning ongoing concurrently .... Re-evaluate in am & prn CONDITION: CRITICAL PROGNOSIS: GUARDED CODE STATUS: FULL CODE The high probability of a clinically significant, sudden or life-threatening deterioration of the [respiratory, cardiovascular & neurologic] system(s) required my full and direct attention, intervention and personal management. The aggregate critical care time was [34] minutes without overlap. Time includes spent on; [x] Data Review and interpretation [x] Patient assessment and monitoring of vital signs [x] Documentation [x] Medication orders and management Subjective Date of service: 08/24/21 Principal diagnosis: AHRF; Sepsis; Possible Aspiration; AMS; ESRD; HFpEF; Leukocytosis Interval history: Patient is seen today for: Acute Hypoxemic Respiratory Failure; Recurrent Hypoglycemia; Sepsis; Possible Aspiration; AMS; ESRD; HFpEF; Leukocytosis Seen and examined at bedside; 24hour events reviewed; nursing and respiratory care staff consulted; no adverse overnight events reported to me; resting in bed; responds to verbal stimuli; Hb dropped < 7.0 g/dl with no gross bleeding reported; no emesis or overt aspiration Objective Vital Signs - 12hr 08/24/21 08/24/21 08/24/21 01:00 01:16 01:30 Temperature Pulse Rate 88 88 92 H Pulse Rate [ 93 H Anterior Bilateral] Pulse Rate [ From Monitor] Respiratory 17 18 17 Rate Respiratory 12 Rate [Anterior Bilateral] Blood Pressure 116/48 116/48 122/52 O2 Sat by Pulse 100 100 100 Oximetry 08/24/21 08/24/21 08/24/21 01:46 02:00 02:16 Temperature Pulse Rate 94 H 90 84 Pulse Rate [ Anterior Bilateral] Pulse Rate [ 86 From Monitor] Respiratory 17 17 18 Rate Respiratory Rate [Anterior Bilateral] Blood Pressure 122/52 101/42 101/42 O2 Sat by Pulse 100 98 100 Oximetry 08/24/21 08/24/21 08/24/21 02:30 02:46 03:00 Temperature Pulse Rate 87 86 86 Pulse Rate [ Anterior Bilateral] Pulse Rate [ From Monitor] Respiratory 17 17 18 Rate Respiratory Rate [Anterior Bilateral] Blood Pressure 103/43 103/43 103/43 O2 Sat by Pulse 100 100 100 Oximetry 08/24/21 08/24/21 08/24/21 03:16 03:30 03:46 Temperature Pulse Rate 89 90 88 Pulse Rate [ Anterior Bilateral] Pulse Rate [ From Monitor] Respiratory 15 15 15 Rate Respiratory Rate [Anterior Bilateral] Blood Pressure 127/50 123/43 123/43 O2 Sat by Pulse 100 100 100 Oximetry 08/24/21 08/24/21 08/24/21 04:00 04:16 04:30 Temperature 97.6 F Pulse Rate 87 88 87 Pulse Rate [ Anterior Bilateral] Pulse Rate [ From Monitor] Respiratory 17 16 17 Rate Respiratory Rate [Anterior Bilateral] Blood Pressure 121/47 121/47 120/46 O2 Sat by Pulse 100 100 99 Oximetry 08/24/21 08/24/21 08/24/21 04:46 05:00 05:16 Temperature Pulse Rate 89 87 90 Pulse Rate [ Anterior Bilateral] Pulse Rate [ From Monitor] Respiratory 18 16 17 Rate Respiratory Rate [Anterior Bilateral] Blood Pressure 120/46 117/48 117/48 O2 Sat by Pulse 100 100 100 Oximetry 08/24/21 08/24/21 08/24/21 05:30 05:46 06:00 Temperature Pulse Rate 85 87 86 Pulse Rate [ Anterior Bilateral] Pulse Rate [ 86 From Monitor] Respiratory 17 17 17 Rate Respiratory Rate [Anterior Bilateral] Blood Pressure 117/48 117/48 117/48 O2 Sat by Pulse 100 100 100 Oximetry 08/24/21 08/24/21 08/24/21 06:16 06:30 06:46 Temperature Pulse Rate 88 88 91 H Pulse Rate [ Anterior Bilateral] Pulse Rate [ From Monitor] Respiratory 16 17 18 Rate Respiratory Rate [Anterior Bilateral] Blood Pressure 117/48 117/48 165/42 O2 Sat by Pulse 100 100 100 Oximetry 08/24/21 08/24/21 08/24/21 07:00 07:16 07:30 Temperature Pulse Rate 85 86 90 Pulse Rate [ Anterior Bilateral] Pulse Rate [ From Monitor] Respiratory 18 17 17 Rate Respiratory Rate [Anterior Bilateral] Blood Pressure 176/56 176/56 185/51 O2 Sat by Pulse 100 100 100 Oximetry 08/24/21 08/24/21 08/24/21 07:46 07:50 07:53 Temperature Pulse Rate 89 97 H Pulse Rate [ 98 H Anterior Bilateral] Pulse Rate [ From Monitor] Respiratory 16 Rate Respiratory 28 H Rate [Anterior Bilateral] Blood Pressure 179/51 179/51 O2 Sat by Pulse 100 100 Oximetry 08/24/21 08/24/21 08/24/21 08:00 08:16 08:30 Temperature 97.9 F Pulse Rate 81 92 H 96 H Pulse Rate [ Anterior Bilateral] Pulse Rate [ From Monitor] Respiratory 12 12 17 Rate Respiratory Rate [Anterior Bilateral] Blood Pressure 166/75 166/75 165/56 O2 Sat by Pulse 100 100 100 Oximetry 08/24/21 08/24/21 08/24/21 08:46 09:00 09:16 Temperature Pulse Rate 98 H 97 H 97 H Pulse Rate [ Anterior Bilateral] Pulse Rate [ From Monitor] Respiratory 17 15 17 Rate Respiratory Rate [Anterior Bilateral] Blood Pressure 165/56 174/54 174/54 O2 Sat by Pulse 100 100 100 Oximetry 08/24/21 08/24/21 08/24/21 09:30 09:46 10:00 Temperature Pulse Rate 111 H 112 H 92 H Pulse Rate [ Anterior Bilateral] Pulse Rate [ From Monitor] Respiratory 21 24 16 Rate Respiratory Rate [Anterior Bilateral] Blood Pressure 174/54 200/47 200/47 O2 Sat by Pulse 100 100 100 Oximetry 08/24/21 08/24/21 08/24/21 10:16 10:20 10:30 Temperature Pulse Rate 93 H 88 82 Pulse Rate [ Anterior Bilateral] Pulse Rate [ From Monitor] Respiratory 16 17 Rate Respiratory Rate [Anterior Bilateral] Blood Pressure 161/43 169/44 O2 Sat by Pulse 100 100 Oximetry 08/24/21 08/24/21 08/24/21 10:46 11:00 11:16 Temperature Pulse Rate 81 79 81 Pulse Rate [ Anterior Bilateral] Pulse Rate [ From Monitor] Respiratory 16 15 14 Rate Respiratory Rate [Anterior Bilateral] Blood Pressure 169/44 169/44 118/34 O2 Sat by Pulse 100 100 100 Oximetry 08/24/21 08/24/21 08/24/21 11:20 11:30 11:36 Temperature Pulse Rate 82 79 94 H Pulse Rate [ Anterior Bilateral] Pulse Rate [ From Monitor] Respiratory 14 14 Rate Respiratory Rate [Anterior Bilateral] Blood Pressure 118/34 111/36 111/36 O2 Sat by Pulse 100 100 100 Oximetry 08/24/21 08/24/21 08/24/21 11:40 11:50 12:00 Temperature 99.3 F Pulse Rate 90 81 81 Pulse Rate [ Anterior Bilateral] Pulse Rate [ From Monitor] Respiratory 17 15 16 Rate Respiratory Rate [Anterior Bilateral] Blood Pressure 111/36 111/36 132/42 O2 Sat by Pulse 100 100 100 Oximetry 08/24/21 08/24/21 08/24/21 12:10 12:20 12:30 Temperature Pulse Rate 82 83 89 Pulse Rate [ Anterior Bilateral] Pulse Rate [ From Monitor] Respiratory 16 17 16 Rate Respiratory Rate [Anterior Bilateral] Blood Pressure 132/42 132/42 142/46 O2 Sat by Pulse 100 100 100 Oximetry Constitutional: no acute distress, other (orally intuabted to MVS, elderly woman) Eyes: non-icteric ENT: oropharynx moist, other (OGT, ETT at 23cm) Neck: supple, no lymphadenopathy, other (Right EJ) Effort: normal Ascultation: Bilateral: diminished breath sounds, rhonchi Percussion: Bilateral: not dull Cardiovascular: regular rate and rhythm, other (S1,S2) Gastrointestinal: normoactive bowel sounds, soft, non-tender, non-distended Integumentary: normal Extremities: no cyanosis, no edema Neurologic: non-focal exam (grossly), pupils equal and round, unable to assess Psychiatric: other (to assess re: AMS) CBC and BMP: 08/24/21 04:00 08/24/21 04:00 ABG, PT/INR, D-dimer: ABG ABG pH 7.491 pH Units (7.350-7.450) H 08/24/21 06:00 ABG pCO2 34.8 mm Hg 08/24/21 06:00 ABG pO2 105.3 mm Hg (80.0-90.0) H 08/24/21 06:00 ABG O2 Saturation 98.1 % (95.0-99.0) 08/24/21 06:00 PT/INR, D-dimer PT 15.6 Sec. (12.2-14.9) H 08/19/21 04:53 INR 1.12 (0.87-1.13) 08/19/21 04:53 Abnormal lab findings: Abnormal Labs 08/19/21 08/19/21 08/19/21 04:53 04:53 04:53 WBC 13.0 H RBC 3.03 L Hgb 9.1 L Hct 28.8 L RDW 20.5 H Lymph % (Auto) Seg Neutrophils % Seg Neuts % (Manual) 96.0 H Lymphocytes % (Manual) 1.0 L Seg Neutrophils # Seg Neutrophils # Man 12.5 H Lymphocytes # (Manual) 0.1 L PT 15.6 H ABG pH ABG pO2 ABG HCO3 ABG O2 Saturation ABG Base Excess ABG Hemoglobin Sodium 132 L D Potassium Chloride 96.8 L BUN Creatinine 3.6 H Glucose 599 H* POC Glucose Lactic Acid Calcium 6.6 L D Phosphorus Magnesium 1.50 L Ferritin ALT 6 L Ammonia Troponin T 0.042 H C-Reactive Protein NT-Pro-B Natriuret Pep Total Protein 5.4 L Albumin 2.4 L TSH Coronavirus (PCR) Crossmatch 08/19/21 08/19/21 08/19/21 04:53 04:53 05:35 WBC RBC Hgb Hct RDW Lymph % (Auto) Seg Neutrophils % Seg Neuts % (Manual) Lymphocytes % (Manual) Seg Neutrophils # Seg Neutrophils # Man Lymphocytes # (Manual) PT ABG pH 7.520 H ABG pO2 152.6 H ABG HCO3 26.3 H ABG O2 Saturation ABG Base Excess 3.4 H ABG Hemoglobin 7.9 L Sodium Potassium Chloride BUN Creatinine Glucose POC Glucose Lactic Acid 2.10 H* Calcium Phosphorus Magnesium Ferritin ALT Ammonia 10.0 L Troponin T C-Reactive Protein NT-Pro-B Natriuret Pep Total Protein Albumin TSH Coronavirus (PCR) Crossmatch 08/19/21 08/19/21 08/19/21 06:01 07:54 08:30 WBC RBC Hgb Hct RDW Lymph % (Auto) Seg Neutrophils % Seg Neuts % (Manual) Lymphocytes % (Manual) Seg Neutrophils # Seg Neutrophils # Man Lymphocytes # (Manual) PT ABG pH ABG pO2 ABG HCO3 ABG O2 Saturation ABG Base Excess ABG Hemoglobin Sodium Potassium Chloride BUN Creatinine Glucose POC Glucose < 10 L Lactic Acid Calcium Phosphorus Magnesium Ferritin ALT Ammonia Troponin T C-Reactive Protein NT-Pro-B Natriuret Pep 15173 H Total Protein Albumin TSH 4.850 H Coronavirus (PCR) Crossmatch 08/19/21 08/19/21 08/19/21 08:30 08:37 09:43 WBC RBC Hgb Hct RDW Lymph % (Auto) Seg Neutrophils % Seg Neuts % (Manual) Lymphocytes % (Manual) Seg Neutrophils # Seg Neutrophils # Man Lymphocytes # (Manual) PT ABG pH ABG pO2 ABG HCO3 ABG O2 Saturation ABG Base Excess ABG Hemoglobin Sodium Potassium Chloride BUN Creatinine Glucose POC Glucose 115 H < 10 L Lactic Acid 3.20 H* Calcium Phosphorus Magnesium Ferritin ALT Ammonia Troponin T C-Reactive Protein NT-Pro-B Natriuret Pep Total Protein Albumin TSH Coronavirus (PCR) Crossmatch 08/19/21 08/19/21 08/19/21 10:07 11:05 11:49 WBC RBC Hgb Hct RDW Lymph % (Auto) Seg Neutrophils % Seg Neuts % (Manual) Lymphocytes % (Manual) Seg Neutrophils # Seg Neutrophils # Man Lymphocytes # (Manual) PT ABG pH ABG pO2 ABG HCO3 ABG O2 Saturation ABG Base Excess ABG Hemoglobin Sodium Potassium Chloride BUN Creatinine Glucose POC Glucose 109 H 32 L 164 H Lactic Acid Calcium Phosphorus Magnesium Ferritin ALT Ammonia Troponin T C-Reactive Protein NT-Pro-B Natriuret Pep Total Protein Albumin TSH Coronavirus (PCR) Crossmatch 08/19/21 08/19/21 08/19/21 14:03 16:57 18:23 WBC RBC Hgb Hct RDW Lymph % (Auto) Seg Neutrophils % Seg Neuts % (Manual) Lymphocytes % (Manual) Seg Neutrophils # Seg Neutrophils # Man Lymphocytes # (Manual) PT ABG pH ABG pO2 ABG HCO3 ABG O2 Saturation ABG Base Excess ABG Hemoglobin Sodium Potassium Chloride BUN Creatinine Glucose POC Glucose 51 L 57 L 50 L Lactic Acid Calcium Phosphorus Magnesium Ferritin ALT Ammonia Troponin T C-Reactive Protein NT-Pro-B Natriuret Pep Total Protein Albumin TSH Coronavirus (PCR) Crossmatch 08/19/21 08/19/21 08/19/21 19:15 21:42 23:29 WBC RBC Hgb Hct RDW Lymph % (Auto) Seg Neutrophils % Seg Neuts % (Manual) Lymphocytes % (Manual) Seg Neutrophils # Seg Neutrophils # Man Lymphocytes # (Manual) PT ABG pH ABG pO2 ABG HCO3 ABG O2 Saturation ABG Base Excess ABG Hemoglobin Sodium Potassium Chloride BUN Creatinine Glucose 26 L* POC Glucose 57 L 42 L Lactic Acid Calcium Phosphorus Magnesium Ferritin ALT Ammonia Troponin T C-Reactive Protein NT-Pro-B Natriuret Pep Total Protein Albumin TSH Coronavirus (PCR) Crossmatch 08/19/21 08/19/21 08/20/21 Unknown Unknown 00:37 WBC RBC Hgb Hct RDW Lymph % (Auto) Seg Neutrophils % Seg Neuts % (Manual) Lymphocytes % (Manual) Seg Neutrophils # Seg Neutrophils # Man Lymphocytes # (Manual) PT ABG pH 7.499 H ABG pO2 239.2 H ABG HCO3 27.6 H ABG O2 Saturation 99.4 H ABG Base Excess 4.3 H ABG Hemoglobin 11.3 L Sodium Potassium Chloride BUN Creatinine Glucose POC Glucose 50 L Lactic Acid Calcium Phosphorus Magnesium Ferritin ALT Ammonia Troponin T C-Reactive Protein NT-Pro-B Natriuret Pep Total Protein Albumin TSH Coronavirus (PCR) Positive A Crossmatch 08/20/21 08/20/21 08/20/21 01:41 02:35 03:41 WBC RBC Hgb Hct RDW Lymph % (Auto) Seg Neutrophils % Seg Neuts % (Manual) Lymphocytes % (Manual) Seg Neutrophils # Seg Neutrophils # Man Lymphocytes # (Manual) PT ABG pH ABG pO2 ABG HCO3 ABG O2 Saturation ABG Base Excess ABG Hemoglobin Sodium Potassium Chloride BUN Creatinine Glucose POC Glucose 54 L 40 L 13 L Lactic Acid Calcium Phosphorus Magnesium Ferritin ALT Ammonia Troponin T C-Reactive Protein NT-Pro-B Natriuret Pep Total Protein Albumin TSH Coronavirus (PCR) Crossmatch 08/20/21 08/20/21 08/20/21 04:15 04:15 04:15 WBC 14.6 H RBC Hgb Hct RDW 20.7 H Lymph % (Auto) 9.9 L Seg Neutrophils % 82.4 H Seg Neuts % (Manual) Lymphocytes % (Manual) Seg Neutrophils # 12.0 H Seg Neutrophils # Man Lymphocytes # (Manual) PT ABG pH ABG pO2 ABG HCO3 ABG O2 Saturation ABG Base Excess ABG Hemoglobin Sodium 132 L Potassium Chloride 93.8 L BUN Creatinine 2.7 H Glucose 52 L POC Glucose Lactic Acid 3.40 H* Calcium 7.1 L Phosphorus Magnesium Ferritin ALT Ammonia Troponin T C-Reactive Protein NT-Pro-B Natriuret Pep Total Protein 4.9 L Albumin 2.6 L TSH Coronavirus (PCR) Crossmatch 08/20/21 08/20/21 08/20/21 05:28 06:33 07:37 WBC RBC Hgb Hct RDW Lymph % (Auto) Seg Neutrophils % Seg Neuts % (Manual) Lymphocytes % (Manual) Seg Neutrophils # Seg Neutrophils # Man Lymphocytes # (Manual) PT ABG pH ABG pO2 ABG HCO3 ABG O2 Saturation ABG Base Excess ABG Hemoglobin Sodium Potassium Chloride BUN Creatinine Glucose POC Glucose 51 L 67 L 59 L Lactic Acid Calcium Phosphorus Magnesium Ferritin ALT Ammonia Troponin T C-Reactive Protein NT-Pro-B Natriuret Pep Total Protein Albumin TSH Coronavirus (PCR) Crossmatch 08/20/21 08/20/21 08/20/21 11:55 12:31 13:37 WBC RBC Hgb Hct RDW Lymph % (Auto) Seg Neutrophils % Seg Neuts % (Manual) Lymphocytes % (Manual) Seg Neutrophils # Seg Neutrophils # Man Lymphocytes # (Manual) PT ABG pH 7.526 H ABG pO2 166.8 H ABG HCO3 ABG O2 Saturation 99.1 H ABG Base Excess ABG Hemoglobin 8.7 L Sodium Potassium Chloride BUN Creatinine Glucose POC Glucose 152 H 150 H Lactic Acid Calcium Phosphorus Magnesium Ferritin ALT Ammonia Troponin T C-Reactive Protein NT-Pro-B Natriuret Pep Total Protein Albumin TSH Coronavirus (PCR) Crossmatch 08/20/21 08/20/21 08/20/21 15:47 17:53 23:19 WBC RBC Hgb Hct RDW Lymph % (Auto) Seg Neutrophils % Seg Neuts % (Manual) Lymphocytes % (Manual) Seg Neutrophils # Seg Neutrophils # Man Lymphocytes # (Manual) PT ABG pH ABG pO2 ABG HCO3 ABG O2 Saturation ABG Base Excess ABG Hemoglobin Sodium Potassium Chloride BUN Creatinine Glucose POC Glucose 204 H 223 H 217 H Lactic Acid Calcium Phosphorus Magnesium Ferritin ALT Ammonia Troponin T C-Reactive Protein NT-Pro-B Natriuret Pep Total Protein Albumin TSH Coronavirus (PCR) Crossmatch 08/21/21 08/21/21 08/21/21 04:46 04:46 04:46 WBC 23.9 H RBC 2.55 L Hgb 7.8 L D Hct 23.6 L D RDW 20.2 H Lymph % (Auto) Seg Neutrophils % Seg Neuts % (Manual) 97.0 H Lymphocytes % (Manual) 1.0 L Seg Neutrophils # Seg Neutrophils # Man 23.2 H Lymphocytes # (Manual) 0.2 L PT ABG pH ABG pO2 ABG HCO3 ABG O2 Saturation ABG Base Excess ABG Hemoglobin Sodium 122 L D Potassium Chloride 87.0 L BUN 23 H Creatinine 3.8 H Glucose 166 H POC Glucose Lactic Acid Calcium 6.8 L Phosphorus 1.60 L Magnesium 1.60 L Ferritin 1787.0 H ALT Ammonia Troponin T C-Reactive Protein 10.60 H NT-Pro-B Natriuret Pep Total Protein Albumin TSH Coronavirus (PCR) Crossmatch 08/21/21 08/21/21 08/21/21 05:11 08:18 11:10 WBC RBC Hgb Hct RDW Lymph % (Auto) Seg Neutrophils % Seg Neuts % (Manual) Lymphocytes % (Manual) Seg Neutrophils # Seg Neutrophils # Man Lymphocytes # (Manual) PT ABG pH 7.495 H ABG pO2 141.5 H ABG HCO3 26.2 H ABG O2 Saturation ABG Base Excess ABG Hemoglobin 7.9 L Sodium Potassium Chloride BUN Creatinine Glucose POC Glucose 151 H 141 H Lactic Acid Calcium Phosphorus Magnesium Ferritin ALT Ammonia Troponin T C-Reactive Protein NT-Pro-B Natriuret Pep Total Protein Albumin TSH Coronavirus (PCR) Crossmatch 08/21/21 08/21/21 08/21/21 14:42 16:43 23:34 WBC RBC Hgb Hct RDW Lymph % (Auto) Seg Neutrophils % Seg Neuts % (Manual) Lymphocytes % (Manual) Seg Neutrophils # Seg Neutrophils # Man Lymphocytes # (Manual) PT ABG pH ABG pO2 ABG HCO3 ABG O2 Saturation ABG Base Excess ABG Hemoglobin Sodium 121 L Potassium 5.2 H Chloride 88.1 L BUN 28 H Creatinine 3.9 H Glucose 130 H POC Glucose 113 H 171 H Lactic Acid Calcium 6.7 L Phosphorus Magnesium 2.80 H Ferritin ALT Ammonia Troponin T C-Reactive Protein NT-Pro-B Natriuret Pep Total Protein Albumin TSH Coronavirus (PCR) Crossmatch 08/22/21 08/22/21 08/22/21 05:09 05:09 05:40 WBC 25.0 H RBC 2.55 L Hgb 7.8 L Hct 23.5 L RDW 21.1 H Lymph % (Auto) Seg Neutrophils % Seg Neuts % (Manual) Lymphocytes % (Manual) Seg Neutrophils # Seg Neutrophils # Man Lymphocytes # (Manual) PT ABG pH 7.513 H ABG pO2 ABG HCO3 ABG O2 Saturation ABG Base Excess ABG Hemoglobin 8.6 L Sodium 135 L D Potassium Chloride BUN 20 H Creatinine 2.9 H Glucose POC Glucose Lactic Acid Calcium 7.6 L Phosphorus 1.40 L D Magnesium Ferritin ALT Ammonia Troponin T C-Reactive Protein NT-Pro-B Natriuret Pep Total Protein Albumin TSH Coronavirus (PCR) Crossmatch 08/22/21 08/22/21 08/22/21 11:37 12:09 17:16 WBC RBC Hgb Hct RDW Lymph % (Auto) Seg Neutrophils % Seg Neuts % (Manual) Lymphocytes % (Manual) Seg Neutrophils # Seg Neutrophils # Man Lymphocytes # (Manual) PT ABG pH ABG pO2 ABG HCO3 ABG O2 Saturation ABG Base Excess ABG Hemoglobin Sodium Potassium Chloride BUN Creatinine Glucose POC Glucose 122 H 121 H 120 H Lactic Acid Calcium Phosphorus Magnesium Ferritin ALT Ammonia Troponin T C-Reactive Protein NT-Pro-B Natriuret Pep Total Protein Albumin TSH Coronavirus (PCR) Crossmatch 08/22/21 08/23/21 08/23/21 23:49 04:00 04:00 WBC 19.0 H RBC 2.41 L Hgb 7.2 L Hct 22.4 L RDW 22.1 H Lymph % (Auto) Seg Neutrophils % Seg Neuts % (Manual) Lymphocytes % (Manual) Seg Neutrophils # Seg Neutrophils # Man Lymphocytes # (Manual) PT ABG pH ABG pO2 ABG HCO3 ABG O2 Saturation ABG Base Excess ABG Hemoglobin Sodium Potassium Chloride BUN 32 H Creatinine 3.7 H Glucose 109 H POC Glucose 114 H Lactic Acid Calcium 6.8 L Phosphorus 4.70 H D Magnesium Ferritin ALT Ammonia Troponin T C-Reactive Protein NT-Pro-B Natriuret Pep Total Protein Albumin TSH Coronavirus (PCR) Crossmatch 08/23/21 08/23/21 08/23/21 04:54 05:40 11:10 WBC RBC Hgb Hct RDW Lymph % (Auto) Seg Neutrophils % Seg Neuts % (Manual) Lymphocytes % (Manual) Seg Neutrophils # Seg Neutrophils # Man Lymphocytes # (Manual) PT ABG pH 7.475 H ABG pO2 111.8 H ABG HCO3 26.1 H ABG O2 Saturation ABG Base Excess ABG Hemoglobin 7.5 L Sodium Potassium Chloride BUN Creatinine Glucose POC Glucose 108 H 107 H Lactic Acid Calcium Phosphorus Magnesium Ferritin ALT Ammonia Troponin T C-Reactive Protein NT-Pro-B Natriuret Pep Total Protein Albumin TSH Coronavirus (PCR) Crossmatch 08/23/21 08/23/21 08/24/21 16:07 23:52 04:00 WBC 15.5 H RBC 2.22 L Hgb 6.9 L Hct 20.8 L RDW 22.2 H Lymph % (Auto) Seg Neutrophils % Seg Neuts % (Manual) Lymphocytes % (Manual) Seg Neutrophils # Seg Neutrophils # Man Lymphocytes # (Manual) PT ABG pH ABG pO2 ABG HCO3 ABG O2 Saturation ABG Base Excess ABG Hemoglobin Sodium Potassium Chloride BUN Creatinine Glucose POC Glucose 132 H 138 H Lactic Acid Calcium Phosphorus Magnesium Ferritin ALT Ammonia Troponin T C-Reactive Protein NT-Pro-B Natriuret Pep Total Protein Albumin TSH Coronavirus (PCR) Crossmatch 08/24/21 08/24/21 08/24/21 04:00 06:00 06:41 WBC RBC Hgb Hct RDW Lymph % (Auto) Seg Neutrophils % Seg Neuts % (Manual) Lymphocytes % (Manual) Seg Neutrophils # Seg Neutrophils # Man Lymphocytes # (Manual) PT ABG pH 7.491 H ABG pO2 105.3 H ABG HCO3 ABG O2 Saturation ABG Base Excess ABG Hemoglobin 7.0 L Sodium 136 L Potassium Chloride BUN 43 H Creatinine 4.1 H Glucose 104 H POC Glucose Lactic Acid Calcium 6.9 L Phosphorus Magnesium Ferritin ALT Ammonia Troponin T C-Reactive Protein NT-Pro-B Natriuret Pep Total Protein Albumin TSH Coronavirus (PCR) Crossmatch See Detail 08/24/21 12:06 WBC RBC Hgb Hct RDW Lymph % (Auto) Seg Neutrophils % Seg Neuts % (Manual) Lymphocytes % (Manual) Seg Neutrophils # Seg Neutrophils # Man Lymphocytes # (Manual) PT ABG pH ABG pO2 ABG HCO3 ABG O2 Saturation ABG Base Excess ABG Hemoglobin Sodium Potassium Chloride BUN Creatinine Glucose POC Glucose 135 H Lactic Acid Calcium Phosphorus Magnesium Ferritin ALT Ammonia Troponin T C-Reactive Protein NT-Pro-B Natriuret Pep Total Protein Albumin TSH Coronavirus (PCR) Crossmatch Chest x-ray: image reviewed (improving bilateral infiltrates) Allied health notes reviewed: nursing
--- NOTE | 2021-08-24 17:35 | Progress Note ---
Assessment and Plan Cultures: 08/19/2021 blood culture: No growth 08/19/2021 tracheal aspirate culture: Light growth of usual respiratory anastacia 08/19/2021 COVID-19 PCR: Positive A/P: 86-year-old female with diabetes, ESRD on HD, recently hospitalized for COVID- 19, was treated with steroids, did not receive Remdesivir due to her ESRD, was hypoxic but gradually weaned to room air at the time of discharge has now been readmitted after being found unresponsive and noted to be severely hypoglycemic with blood sugar < 20 mg/dl. #Recent COVID-19 pneumonia: Treated with steroids during previous admission, Remdesivir not indicated due to renal failure. CXR with b/l airspace opacities without much interval change, likely represents COVID-19 sequelae, might take a while before imaging shows improvement. Ferritin 1787, NT proBNP 17986, CRP 10.6. Possibility of HCAP. Continue empiric abx. #Acute hypoxic respiratory failure: Due to above. #ESRD on HD: Renally adjust antibiotics #Acute encephalopathy: Likely metabolic given severe hypoglycemia Recs: -Given worsening leukocytosis, not a candidate for Tocilizumab -Continue meropenem -continue renally dosed vancomycin -Poor prognosis Sully Metcalf MD [facility] ([facility] O: [phone] F: [phone] Subjective Date of service: 08/24/21 Principal diagnosis: AHRF; Sepsis; Possible Aspiration; AMS; ESRD; HFpEF; Leukocytosis Interval history: Afebrile, white count 15.5 which is improving. Cultures remain negative. Imaging personally reviewed: Chest x-ray: Improving airspace disease. Objective - Exam Narrative Exam: Physical Exam: Constitutional: intubated, on the vent Head, Ears, Nose: Normocephalic, atraumatic. External ears, nose normal Eyes: Conjunctivae/corneas clear. No icterus. No ptosis. Neck: intubated Oral: intubated Cardiovascular: S1, S2 + Respiratory: AE fair GI: Soft, bowel sounds + Musculoskeletal: No pedal edema, no cyanosis. Skin: No rash or abscess Hem/Lymphatic: No palpable cervical or supraclavicular nodes. No lymphangitis Psych: no agitation Neurological: unresponsive, intubated, on the vent, exam limited - Constitutional Vitals: Vital Signs Temp Pulse Resp BP Pulse Ox 97.8 F 84 14 168/54 100 08/24/21 16:39 08/24/21 17:00 08/24/21 17:00 08/24/21 17:00 08/24/21 17:00 Temperature -Last 24 Hours Temperature 97.8 F Temperature 97.8 F Temperature 97.8 F Temperature 97.4 F Temperature 97.9 F Temperature 97.4 F Temperature 97.8 F Temperature 97.9 F Temperature 99.3 F Temperature 97.9 F Temperature 97.6 F Temperature 98.6 F Temperature 98.2 F - Labs CBC & Chem 7: 08/24/21 04:00 08/24/21 04:00 Labs: Abnormal lab results 08/23/21 08/24/21 08/24/21 Range/Units 23:52 04:00 04:00 WBC 15.5 H (4.5-11.0) K/mm3 RBC 2.22 L (3.65-5.03) M/mm3 Hgb 6.9 L (10.1-14.3) gm/dl Hct 20.8 L (30.3-42.9) % RDW 22.2 H (13.2-15.2) % ABG pH (7.350-7.450) pH Units ABG pO2 (80.0-90.0) mm Hg ABG Hemoglobin (12.0-16.0) gm/dl Sodium 136 L (137-145) mmol/L BUN 43 H (7-17) mg/dL Creatinine 4.1 H (0.6-1.2) mg/dL Glucose 104 H (65-100) mg/dL POC Glucose 138 H (70-105) mg/dL Calcium 6.9 L (8.4-10.2) mg/dL Crossmatch 08/24/21 08/24/21 08/24/21 Range/Units 06:00 06:41 12:06 WBC (4.5-11.0) K/mm3 RBC (3.65-5.03) M/mm3 Hgb (10.1-14.3) gm/dl Hct (30.3-42.9) % RDW (13.2-15.2) % ABG pH 7.491 H (7.350-7.450) pH Units ABG pO2 105.3 H (80.0-90.0) mm Hg ABG Hemoglobin 7.0 L (12.0-16.0) gm/dl Sodium (137-145) mmol/L BUN (7-17) mg/dL Creatinine (0.6-1.2) mg/dL Glucose (65-100) mg/dL POC Glucose 135 H (70-105) mg/dL Calcium (8.4-10.2) mg/dL Crossmatch See Detail
[2021-08-24] MEDS: PARICALCITOL 2 MCG/1 ML INJ IV PRN (17:56)
[2021-08-24] MEDS: MEROPENEM/NS 1 GRAM/100 ML 1 GRAM/100 ML BAG IV SCH (18:48)
--- NOTE | 2021-08-24 19:14 | Progress Note ---
Assessment and Plan Assessment and plan: This is a 86-year-old female with HTN, DM, ESRD on HD, recent hospitalization Covid pneumonia admitted with severe hypoglycemia and acute hypoxic respiratory failure requiring ventilatory support Neuro: Acute metabolic encephalopathy -Likely related to severe hypoglycemia -CT head with no acute findings, remote lacunar infarct, generalized atrophy and microvascular ischemia -Fentanyl drip -Continue home Remeron -Avoid delirium -Maintain sleep-wake cycle Cardio: NSTEMI, h/o CHF with preserved EF, hypertension -Cardiology consulted, appreciate recommendations -Echocardiogram shows EF of 40 to 45% -Continue home amlodipine and add clonidine -Blood pressure monitor per protocol -Per cardiology due to decrease in EF will consider outpatient ischemic evaluation when patient is clinically stable -Per cardiology: -Echo 08/19/2021-EF 40 to 45%. Mild concentric LVH. Doppler flow pattern suggests impaired LV relaxation. Right ventricular systolic function is normal. Echo bright density suspected in the right atrium. Moderate aortic stenosis. Highest mean aortic valve gradient is 21.6 mmHg. Mild aortic regurgitation. Mitral valve leaflets are thickened. Mitral valve leaflets are calcified. Moderate mitral regurgitation - Echo03/2020 -Moderate concentric left ventricular hypertrophy.Left ventricular ejection fraction is 60-65%. There is moderately increased filling pressure consistent with grade 2 diastolic dysfunction. Aortic valve is tricuspid, sclerotic and focally calcified. Mild aortic stenosis. Mild to moderate aortic valve insufficiency. The left ventricular size is small. The aortic valve max velocity is 2.57 m/s. The peak gradient is 26.4 mmHg with a mean gradient of 16.0 mmHg, the left ventricle outflow tract measures 2.00 cm. CORNELIA (VTI) is 1.08 cm. Mild mitral valve regurgitation.Normal right ventricular size and wall thickness. There is small pleural effusion in the left lateral region. There is small pleural effusion in the right lateral region.No pericardial effusion seen. -Lexiscan MPI stress test 05/14/2019-normal myocardial perfusion without evidence of ischemia or prior infarction Respiratory: Acute hypoxic respiratory failure -Intubated in the emergency department for airway protection on 08/19 with a 7.00 ETT -CCM consulted, appreciate recommendations -A.m. vent settings: Assist-control rate 12, tidal volume 300, PEEP 6, FiO2 30% -See RT notes for titration -A.m. ABG and CXR noted -VAP bundle -Daily SBT/SAT trial as tolerated -SPO2 monitoring GI: Severe protein calorie malnutrition -Nutrition consult for tube feeding -Reglan every 8 for 3 days -BR: Senokot -PPI -BM 08/24 : ESRD on HD, hyponatremia -Nephrology consulted, appreciate recommendations -Hemodialysis per nephrology (MWF or as needed) -Strict urine output -Avoid nephrotoxic medications -Renally dose medication -Monitor and replace electrolytes as needed -Restart active vitamin D analog -Trend BMP ID: Sepsis, COVID-19 pneumonia, ? HCAP -COVID-19 PCR positive -Infectious disease consulted, patient recommendations -Contact/droplet precautions -Not a candidate for remdesivir due to ESRD -Per ID: Given worsening leukocytosis not a candidate for Actemra -IV antibiotic therapy: Meropenem, renally dose vancomycin -Trend COVID-19 from 2 markers -CRP 10.6 Heme: Anemia of chronic disease, leukocytosis -Epogen per nephrology -Trend CBC -Transfuse hemoglobin less than 7 -Hemoglobin 6.9 -Transfuse 1 unit PRBC with HD -SCD to bilateral lower extremity while in bed -Subcu heparin Endo: Severe hypoglycemia -S/p D10 drip -Avoid hypoglycemia -Accu-Cheks every 6 The high probability of a clinically significant, sudden or life threatening deterioration of the [multiple] system(s) required my full and direct attention, intervention and personal management. The aggregate critical care time was [60] minutes. This time is in addition to time spent performing reported procedures but includes the following: [x] Data Review and interpretation [x] Patient assessment and monitoring of vital signs [x] Documentation [x] Medication orders and management Disposition Plan: icu Total Time Spent with Patient (Minutes): 60 History Interval history: This is a 86-year-old female with DM, ESRD on HD, HTN, recent diagnosis of COVID-19 who presented to emergency department on 08/19 via EMS with hypoglycemia after being found unresponsive by the family and on scene her blood glucose was less than 20 and received D10 with EMS with improvement of blood glucose but remained unresponsive upon arrival to the emergency department. Patient was intubated for airway protection in the ED and lab work showed blood sugar of 599 for which she received insulin and recurrent blood sugar check was less than 10. Patient was admitted to the hospitalist service with acute hypoxic respiratory failure, acute metabolic encephalopathy, hypoglycemia, sepsis due to possible aspiration, hypomagnesemia, severe protein calorie malnutrition with consults to CCM, ID and nephrology. Of note and recent admission to the hospital patient was noted to have decreased p.o. intake and seems family continued home antidiabetic regimen despite decreased p.o. intake. Hospital Course to Date: 08/20: Off sedation this am, open eyes spontaneously but does not follow any commands. Patient remains hypoglycemic throught the night despite D10W gtt and TF at goal. TF is now on hold this am due to vomiting. Reglan was initiated Q8hrs, X1 dose of IV steroids, and continue D10w and Q1hr BG check for now. Midodrine was also added TID for hypotension. Possible PST today once more awake, plan to start weaning vent for possible extubation. 08/21: Patient remains on thevent, mentation is unchanged, off sedation. BG improved, no more vomiting, patient is tolerating TF. On SSI Q6hrs, low NA this am, will switch D10w to NS at 50cc,a and mag and phosp repleted. Possible HD today per Nephro. BP also improved, continue midodrine TID. Family conference call today with the attending. Patient's condition and overall poor prognosis were thoroughly discussed with patient's family. They want to keep patient as a FULL code status and leaning towards Trach and PEG. D/w CCM, will continue to mo nitor patient's mental status over the weekend. If no improvement by tuesday, plan to consult General Surgery for possible trach and PEG tube placement. 08/22: Patient appears a lot more awake this am, however, still not following commands. BG remains stable, still tolerating TF. Patient is now hypertensive, will hold midodrine for now. Tolerated HD overnight. Electrolytes replaced, repeat lab in the am 08/23: Awake and following simple commands this am. Possible PST today, plan to wean for possible extubation. Hypertensive this am, home norvasc resumed. Patient is tolerating TF at goal and BG remains stable 08/24: Patient was restarted on home Coreg due to hypotension, received hemodialysis today and D10 drip discontinued. Hospitalist Physical - Constitutional Vitals: Temp Pulse Resp BP Pulse Ox 97.8 F 99 H 14 141/61 100 08/24/21 16:39 08/24/21 18:00 08/24/21 18:00 08/24/21 18:00 08/24/21 18:00 General appearance: Present: no acute distress, other (Intubated) - EENT Eyes: Present: PERRL, EOM intact - Neck Neck: Present: normal ROM - Respiratory Respiratory effort: normal - Cardiovascular Rhythm: regular Heart Sounds: Present: S1 & S2, systolic murmur, diastolic murmur - Extremities Extremities: no ischemia, pulses intact, pulses symmetrical, No edema, normal temperature, normal color Peripheral Pulses: within normal limits - Abdominal General gastrointestinal: soft, non-tender, non-distended, normal bowel sounds - Integumentary Integumentary: Present: warm, dry - Psychiatric Psychiatric: other (sedated) - Neurologic Neurologic: other (sedated) - Allied Health Allied health notes reviewed: nursing, RT, social work HEART Score - HEART Score Troponin: Troponin T 0.042 ng/mL (0.00-0.029) H 08/19/21 04:53 Results - Labs CBC & Chem 7: 08/24/21 04:00 08/24/21 04:00 Labs: Laboratory Last Values WBC 15.5 K/mm3 (4.5-11.0) H 08/24/21 04:00 RBC 2.22 M/mm3 (3.65-5.03) L 08/24/21 04:00 Hgb 6.9 gm/dl (10.1-14.3) L 08/24/21 04:00 Hct 20.8 % (30.3-42.9) L 08/24/21 04:00 MCV 94 fl (79-97) 08/24/21 04:00 MCH 31 pg (28-32) 08/24/21 04:00 MCHC 33 % (30-34) 08/24/21 04:00 RDW 22.2 % (13.2-15.2) H 08/24/21 04:00 Plt Count 308 K/mm3 (140-440) 08/24/21 04:00 Lymph % (Auto) 9.9 % (13.4-35.0) L 08/20/21 04:15 [place] % (Auto) 4.5 % (0.0-7.3) 08/20/21 04:15 Eos % (Auto) 2.8 % (0.0-4.3) 08/20/21 04:15 Baso % (Auto) 0.4 % (0.0-1.8) 08/20/21 04:15 Lymph # (Auto) 1.4 K/mm3 (1.2-5.4) 08/20/21 04:15 [place] # (Auto) 0.7 K/mm3 (0.0-0.8) 08/20/21 04:15 Eos # (Auto) 0.4 K/mm3 (0.0-0.4) 08/20/21 04:15 Baso # (Auto) 0.1 K/mm3 (0.0-0.1) 08/20/21 04:15 Add Manual Diff Complete 08/21/21 04:46 Total Counted 100 08/21/21 04:46 Seg Neutrophils % Mail Rider 08/21/21 04:46 Seg Neuts % (Manual) 97.0 % (40.0-70.0) H 08/21/21 04:46 Band Neutrophils % 0 % 08/21/21 04:46 Lymphocytes % (Manual) 1.0 % (13.4-35.0) L 08/21/21 04:46 Reactive Lymphs % (Man) 0 % 08/21/21 04:46 Monocytes % (Manual) 2.0 % (0.0-7.3) 08/21/21 04:46 Eosinophils % (Manual) 0 % (0.0-4.3) 08/21/21 04:46 Basophils % (Manual) 0 % (0.0-1.8) 08/21/21 04:46 Metamyelocytes % 0 % 08/21/21 04:46 Myelocytes % 0 % 08/21/21 04:46 Promyelocytes % 0 % 08/21/21 04:46 Blast Cells % 0 % 08/21/21 04:46 Nucleated RBC % Not Reportable 08/21/21 04:46 Seg Neutrophils # 12.0 K/mm3 (1.8-7.7) H 08/20/21 04:15 Seg Neutrophils # Man 23.2 K/mm3 (1.8-7.7) H 08/21/21 04:46 Band Neutrophils # 0.0 K/mm3 08/21/21 04:46 Lymphocytes # (Manual) 0.2 K/mm3 (1.2-5.4) L 08/21/21 04:46 Abs React Lymphs (Man) 0.0 K/mm3 08/21/21 04:46 Monocytes # (Manual) 0.5 K/mm3 (0.0-0.8) 08/21/21 04:46 Eosinophils # (Manual) 0.0 K/mm3 (0.0-0.4) 08/21/21 04:46 Basophils # (Manual) 0.0 K/mm3 (0.0-0.1) 08/21/21 04:46 Metamyelocytes # 0.0 K/mm3 08/21/21 04:46 Myelocytes # 0.0 K/mm3 08/21/21 04:46 Promyelocytes # 0.0 K/mm3 08/21/21 04:46 Blast Cells # 0.0 K/mm3 08/21/21 04:46 WBC Morphology Not Reportable 08/21/21 04:46 Hypersegmented Neuts Not Reportable 08/21/21 04:46 Hyposegmented Neuts Not Reportable 08/21/21 04:46 Hypogranular Neuts Not Reportable 08/21/21 04:46 Smudge Cells Not Reportable 08/21/21 04:46 Toxic Granulation Not Reportable 08/21/21 04:46 Toxic Vacuolation Not Reportable 08/21/21 04:46 Dohle Bodies Not Reportable 08/21/21 04:46 Pelger-Huet Anomaly Not Reportable 08/21/21 04:46 Dhara Rods Not Reportable 08/21/21 04:46 Platelet Estimate Consistent w auto 08/21/21 04:46 Clumped Platelets Not Reportable 08/21/21 04:46 Plt Clumps, EDTA Not Reportable 08/21/21 04:46 Large Platelets Not Reportable 08/21/21 04:46 Giant Platelets Not Reportable 08/21/21 04:46 Platelet Satelliting Not Reportable 08/21/21 04:46 Plt Morphology Comment Not Reportable 08/21/21 04:46 RBC Morphology Not Reportable 08/21/21 04:46 Dimorphic RBCs Not Reportable 08/21/21 04:46 Polychromasia Few 08/21/21 04:46 Hypochromasia 1+ 08/21/21 04:46 Poikilocytosis Not Reportable 08/21/21 04:46 Anisocytosis 1+ 08/21/21 04:46 Microcytosis Not Reportable 08/21/21 04:46 Macrocytosis Not Reportable 08/21/21 04:46 Spherocytes Not Reportable 08/21/21 04:46 Pappenheimer Bodies Not Reportable 08/21/21 04:46 Sickle Cells Not Reportable 08/21/21 04:46 Target Cells Not Reportable 08/21/21 04:46 Tear Drop Cells Not Reportable 08/21/21 04:46 Ovalocytes Not Reportable 08/21/21 04:46 Helmet Cells Not Reportable 08/21/21 04:46 Leyva-Maunie Bodies Not Reportable 08/21/21 04:46 Bryce Rings Not Reportable 08/21/21 04:46 Korina Cells Not Reportable 08/21/21 04:46 Bite Cells Not Reportable 08/21/21 04:46 Crenated Cell Not Reportable 08/21/21 04:46 Elliptocytes Not Reportable 08/21/21 04:46 Acanthocytes (Spur) Not Reportable 08/21/21 04:46 Rouleaux Not Reportable 08/21/21 04:46 Hemoglobin C Crystals Not Reportable 08/21/21 04:46 Schistocytes Not Reportable 08/21/21 04:46 Malaria parasites Not Reportable 08/21/21 04:46 Keshav Bodies Not Reportable 08/21/21 04:46 Hem Pathologist Commnt No 08/21/21 04:46 PT 15.6 Sec. (12.2-14.9) H 08/19/21 04:53 INR 1.12 (0.87-1.13) 08/19/21 04:53 APTT 30.3 Sec. (24.2-36.6) 08/19/21 04:53 ABG pH 7.491 pH Units (7.350-7.450) H 08/24/21 06:00 ABG pCO2 34.8 mm Hg 08/24/21 06:00 ABG pO2 105.3 mm Hg (80.0-90.0) H 08/24/21 06:00 ABG HCO3 26.0 mmol/L (20.0-26.0) 08/24/21 06:00 ABG O2 Saturation 98.1 % (95.0-99.0) 08/24/21 06:00 ABG O2 Content 9.6 (0.0-44) 08/24/21 06:00 ABG Base Excess 2.6 mmol/L (-2.0-3.0) 08/24/21 06:00 ABG Hemoglobin 7.0 gm/dl (12.0-16.0) L 08/24/21 06:00 ABG Carboxyhemoglobin 1.9 % (0.0-5.0) 08/24/21 06:00 ABG Methemoglobin 0.4 % (0.0-1.5) 08/24/21 06:00 Oxyhemoglobin 95.9 % (95.0-99.0) 08/24/21 06:00 FiO2 30 % 08/24/21 06:00 Sodium 136 mmol/L (137-145) L 08/24/21 04:00 Potassium 4.0 mmol/L (3.6-5.0) 08/24/21 04:00 Chloride 98.0 mmol/L (98-107) 08/24/21 04:00 Carbon Dioxide 23 mmol/L (22-30) 08/24/21 04:00 Anion Gap 19 mmol/L 08/24/21 04:00 BUN 43 mg/dL (7-17) H 08/24/21 04:00 Creatinine 4.1 mg/dL (0.6-1.2) H 08/24/21 04:00 Estimated GFR 10 ml/min 08/24/21 04:00 BUN/Creatinine Ratio 10 % 08/24/21 04:00 Glucose 104 mg/dL (65-100) H 08/24/21 04:00 POC Glucose 133 mg/dL (70-105) H 08/24/21 18:46 Lactic Acid 3.40 mmol/L (0.7-2.0) H* 08/20/21 04:15 Calcium 6.9 mg/dL (8.4-10.2) L 08/24/21 04:00 Phosphorus 4.00 mg/dL (2.5-4.5) 08/24/21 04:00 Magnesium 2.30 mg/dL (1.7-2.3) 08/24/21 04:00 Ferritin 1787.0 ng/mL (10.0-200.0) H 08/21/21 04:46 Total Bilirubin 0.30 mg/dL (0.1-1.2) 08/20/21 04:15 AST 17 units/L (5-40) 08/20/21 04:15 ALT 7 units/L (7-56) 08/20/21 04:15 Alkaline Phosphatase 85 units/L (35-129) 08/20/21 04:15 Ammonia 10.0 umol/L (25-60) L 08/19/21 04:53 Total Creatine Kinase 105 units/L (30-135) 08/19/21 04:53 CK-MB (CK-2) 1.1 ng/mL (0.0-4.0) 08/19/21 04:53 CK-MB (CK-2) Rel Index 1.0 (0-4) 08/19/21 04:53 Troponin T 0.042 ng/mL (0.00-0.029) H 08/19/21 04:53 C-Reactive Protein 10.60 mg/dL (0.00-1.30) H 08/21/21 04:46 NT-Pro-B Natriuret Pep 83909 pg/mL (0-900) H 08/19/21 06:01 Total Protein 4.9 g/dL (6.3-8.2) L 08/20/21 04:15 Albumin 2.6 g/dL (3.9-5) L 08/20/21 04:15 Albumin/Globulin Ratio 1.1 % 08/20/21 04:15 Triglycerides 122 mg/dL (2-149) 08/19/21 04:53 Cholesterol 160 mg/dL (50-199) 08/19/21 04:53 LDL Cholesterol Direct 88 mg/dL (50-130) 08/19/21 04:53 HDL Cholesterol 47 mg/dL (40-59) 08/19/21 04:53 Cholesterol/HDL Ratio 3.40 % 08/19/21 04:53 TSH 4.850 mlU/mL (0.270-4.200) H 08/19/21 08:30 Random Vancomycin 17.8 ug/mL (0-40.0) 08/21/21 04:46 Coronavirus (PCR) Positive (Negative) A 08/19/21 Unknown Blood Type O POSITIVE 08/24/21 06:41 Antibody Screen Negative 08/24/21 06:41 Crossmatch See Detail 08/24/21 06:41 Microbiology: Microbiology 08/19/21 06:01 Peripheral/Venous Blood Culture - Final NO GROWTH AFTER 5 DAYS 08/19/21 06:01 Peripheral/Venous Blood Culture - Final NO GROWTH AFTER 5 DAYS [place]/IV: Voiding Method Incontinent Active Medications - Current Medications Current Medications: Generic Name Dose Route Start Last Admin Trade Name Freq PRN Reason Stop Dose Admin Acetaminophen 650 mg 08/19/21 10:00 Acetaminophen 325 Mg Tab PO Q6H PRN Pain MILD(1-3)/Fever >100.5/MEHTA Albuterol 2.5 mg 08/19/21 11:00 Albuterol 2.5 Mg/3 Ml Nebu IH Q3HRT PRN Shortness Of Breath Albuterol/Ipratropium 1 ampul 08/19/21 14:00 08/24/21 14:41 Ipratropium/Albuterol Sulfate 3 Ml Ampul.Neb IH 1 ampul Q6HRT ANAHY Administration Amlodipine Besylate 10 mg 08/23/21 10:00 08/24/21 10:20 Amlodipine 10 Mg Tab PO 10 mg QDAY ANAHY Administration Budesonide 0.5 mg 08/19/21 20:00 08/24/21 07:53 Budesonide 0.5 Mg/2 Ml Nebu IH 0.5 mg Q12HRT ANAHY Administration Cholecalciferol 1,000 unit 08/19/21 10:00 08/24/21 10:20 Cholecalciferol (Vit D3) 1000 Unit (25 Mcg) Tab PO 1,000 unit QDAY ANAHY Administration Clonidine HCl 0.1 mg 08/24/21 10:00 08/24/21 10:20 Clonidine 0.1 Mg Tab PO 0.1 mg BID ANAHY Administration Dextrose 0 ml 08/19/21 09:30 08/20/21 11:28 Dextrose 10% *Hypoglycemia IV 50 ml PRN PRN Administration Hypoglycemia Famotidine 20 mg 08/19/21 10:00 08/24/21 10:20 Famotidine 20 Mg Tab PO 20 mg QAM ANAHY Administration Fentanyl 50 mcg 08/20/21 10:03 Fentanyl 100 Mcg/2 Ml Inj IV Q2HR PRN For CPOT greater than 3 Heparin Sodium (Porcine) 5,000 unit 08/19/21 11:00 08/24/21 15:30 Heparin 5,000 Unit/1 Ml Vial SUB-Q 5,000 unit Q8HR ANAHY Administration Sodium Chloride 100 mls @ 999 mls/hr 08/19/21 11:14 Nacl 0.9% IV LEVI PRN Hypotension Meropenem/Sodium Chloride 1 gram in 100 mls @ 100 mls/hr 08/21/21 18:00 08/24/21 18:48 Merrem/Ns 1 Gram/100 Ml IV 100 mls/hr QPM ANAHY Administration Protocol Sodium Chloride 500 mls @ 0 mls/hr 08/24/21 08:58 Nacl 0.9% 500 Ml IV 08/24/21 23:59 ONCE ANAHY As Directed Sodium Chloride 100 mls @ 999 mls/hr 08/24/21 10:50 Nacl 0.9% IV LEVI PRN Hypotension Insulin Human Lispro 0 unit 08/19/21 12:00 08/24/21 12:00 Insulin Lispro 100 Unit/Ml SUB-Q Not Given Q6HR [facility] Protocol Labetalol HCl 10 mg 08/23/21 12:17 08/23/21 12:36 Labetalol 20 Mg/4 Ml Inj IV 10 mg Q4H PRN Administration Hypertension Metoclopramide HCl 5 mg 08/20/21 12:00 08/24/21 13:52 Metoclopramide 10 Mg/2 Ml Inj IV Not Given Q8H [facility] Mirtazapine 15 mg 08/20/21 10:02 Mirtazapine 15 Mg Tab PO QHS PRN Sleep Naloxone HCl 0.1 mg 08/19/21 09:30 Naloxone 0.4 Mg/1 Ml Inj IV Q2MIN PRN Res Rate </= 8 or 02 SAT < 92% Paricalcitol 2 mcg 08/24/21 10:50 08/24/21 17:56 Paricalcitol 2 Mcg/1 Ml Inj IV 2 mcg LEVI PRN Administration hemodialysis Senna 17.6 mg 08/20/21 22:00 08/23/21 23:01 Sennosides Oral Liqd 8.8 Mg/5 Ml Oral Liqd PO Not Given QHS ANAHY Simple Syrup 30 ml 08/19/21 17:44 08/20/21 03:48 Simple Syrup 15 Ml FEEDTUBE 30 ml PRN PRN Administration Hypoglycemia Sodium Chloride 10 ml 08/19/21 10:00 08/24/21 13:47 Sodium Chloride 0.9% 10 Ml Flush Syringe IV 10 ml BID ANAHY Administration Sodium Chloride 10 ml 08/19/21 09:30 Sodium Chloride 0.9% 10 Ml Flush Syringe IV PRN PRN LINE FLUSH Zinc Sulfate 220 mg 08/19/21 11:00 08/24/21 10:20 Zinc Sulfate 220 Mg Cap PO 220 mg BID ANAHY Administration Nutrition/Malnutrition Assess - Dietary Evaluation Nutrition/Malnutrition Findings: Nutrition Notes Start: 08/19/21 14:18 Freq: Status: Active Protocol: Document 08/22/21 17:21 MIGUEL ANGEL (Rec: 08/22/21 17:31 MIGUEL ANGEL [id number]) Nutrition Notes Initial or Follow up Brief Note Current Diet NPO. TF-Nepro w/CARBSTEADY @ 28 ml/hr (from D 08/19). Height 5 ft 2 in Weight 74.843 kg [place] Body Weight (kg) 50.00 BMI 30.2 Weight change and time frame No body weight change reported in 3 days. Weight Status Overweight Subjective/Other Information RD consult for routine F/U on TF tolerance. Pt continues on Mechanical Ventilation. TF continues as prescribed, with adjustment on the Flush quantity recommended. Percent of energy/protein needs met: Prescribed TF-Nepro w/ CARBSTEADY @ 28 ml/hr provides for energy/protein needs (1, 197 Kcal/54 g) during LOS, 100 % Kcal; 86% AA. #1 Nutrition Diagnosis Inadequate oral intake Diagnosis Progress(for reassessment Continues documentation) Is patient on ventilator? Yes Is Patient Ambulatory and/or Out of Bed No REE-([facility]-confined to bed) 1389.180 Kcal/Kg value to use for calculation 16 Approximate Energy Requirements Using 1197 kcal/Kg Calculation Used for Recommendations Kcal/kg Additional Notes Protein: 1-1.2 g/Kg; 63-76 g/ day. Fluids: 1 ml/Kcal, or as per MD. Nutrition Intervention Nutrition Support: Nepro w/CARBSTEADY @ 28 ml/hr. Flush: 100 ml water Q 4 hr, or as per MD. Kcal 1,197 Protein (gm) 54 Carbohydrates (gm) 107 Fat (gm) 64 Fluid (mL) 485 Fiber (gm) 8 % RDI: 100% Kcal; 86% AA. Goal #1 Provide at least 75% of energy /protein needs through Enteral Feeding during LOS. Goal #2 Maintain body weight within +/ -3% of admission body weight during LOS. Follow-Up By: 08/28/21 Additional Comments Continue monitoring TF tolerance and BM.
[2021-08-24] MEDS: fentaNYL 100 MCG/2 ML INJ IV PRN (21:00)
[2021-08-24] MEDS: SENNOSIDES ORAL LIQD 8.8 MG/5 ML ORAL LIQD PO SCH (21:01)
[2021-08-25] MEDS: fentaNYL 100 MCG/2 ML INJ IV PRN (00:45)
[2021-08-25] MEDS: INSULIN LISPRO 100 UNIT/ML SUB-Q SCH ×4 (01:31→17:06)
[2021-08-25] MEDS: IPRATROPIUM/ALBUTEROL SULFATE 3 ML AMPUL.NEB IH SCH ×4 (03:29→20:29)
[2021-08-25 04:51] LABS: Hematocrit 26.8 % (30.3-42.9); Hemoglobin 9.1 gm/dl (10.1-14.3); Mean Corpuscular HGB Conc 34 % (30-34); Mean Corpuscular Volume 90 fl (79-97); Platelet Count 285 K/mm3 (140-440); Red Blood Count 2.97 M/mm3 (3.65-5.03); Red Cell Distribution Width 19.8 % (13.2-15.2)
[2021-08-25] MEDS: METOCLOPRAMIDE 10 MG/2 ML INJ IV SCH (04:51)
[2021-08-25 05:12] LABS: Calcium 7.8 mg/dL (8.4-10.2)
[2021-08-25] MEDS: HEPARIN 5,000 UNIT/1 ML VIAL SUB-Q SCH ×3 (06:06→22:23)
[2021-08-25] MEDS: BUDESONIDE 0.5 MG/2 ML NEBU IH SCH ×2 (08:24→20:29)
[2021-08-25] MEDS: CHOLECALCIFEROL (VIT D3) 1000 UNIT (25 mcg) TAB PO SCH (09:50)
[2021-08-25] MEDS: amLODIPine 10 MG TAB PO SCH (09:50)
[2021-08-25] MEDS: FAMOTIDINE 20 MG TAB PO SCH (09:50)
[2021-08-25] MEDS: cloNIDine 0.1 MG TAB PO SCH ×2 (09:50→22:23)
[2021-08-25] MEDS: ZINC SULFATE 220 MG CAP PO SCH ×2 (09:50→22:24)
--- NOTE | 2021-08-25 09:50 | Progress Note ---
Assessment and Plan Acute Hypoxemic Respiratory Failure on MVS Sepsis Recurrent hypoglycemic events h/o COVID Pneumonia Possible Aspiration Leukocytosis Acute Metabolic Encephalopathy Hypomagnesemia End stage renal disease Congestive heart failure with preserved EF (chronic) - extubate - prn BIPAP post extubation - continue care as below otherwise; - Daily SAT and SBT assessment as tolerated - continue to wean supplemental oxygen for target O2 sat's > 90% acutely - VAP bundle addressed - continue lung protective strategies - continue bronchodilators with pulmonary hygiene per RT - wean per pulmonary driven protocols otherwise - avoid nephrotoxins, renally dose all medications - continue to avoid benzodiazepine's, reduce the possibility of delirium - AB's per ID rec's - prn analgesia per CPOT score - Maintenance of sleep-wake cycle, avoid delirium - continue enteral nutritional support at goal rate as tolerated - G.I. & VTE prophylaxis - PT/OT/ROM exercises - continue mobility protocols for pressure ulcer prophylaxis - Monitor hemodynamics closely - continue other care per attending / other consultants - discharge planning ongoing concurrently .... Re-evaluate in am & prn CONDITION: CRITICAL PROGNOSIS: GUARDED CODE STATUS: FULL CODE The high probability of a clinically significant, sudden or life-threatening deterioration of the [respiratory, cardiovascular & neurologic] system(s) required my full and direct attention, intervention and personal management. The aggregate critical care time was [32] minutes without overlap. Time includes spent on; [x] Data Review and interpretation [x] Patient assessment and monitoring of vital signs [x] Documentation [x] Medication orders and management Subjective Date of service: 08/25/21 Principal diagnosis: AHRF; Sepsis; Possible Aspiration; AMS; ESRD; HFpEF; Leukocytosis Interval history: Patient is seen today for: Acute Hypoxemic Respiratory Failure; Recurrent Hypoglycemia; Sepsis; Possible Aspiration; AMS; ESRD; HFpEF; Leukocytosis Seen and examined at bedside; 24hour events reviewed; nursing and respiratory care staff consulted; no adverse overnight events reported to me; resting in bed; doing really well on SBT; AMS is persistent; no emeiss or overt aspiration Objective Vital Signs - 12hr 08/24/21 08/24/21 08/24/21 22:00 22:15 22:30 Temperature Pulse Rate 85 93 H 84 Pulse Rate [ From Monitor] Respiratory 15 18 16 Rate Blood Pressure 138/47 138/47 137/45 O2 Sat by Pulse 100 100 100 Oximetry 0208/24/21 08/24/21 22:45 23:00 23:15 Temperature Pulse Rate 78 87 84 Pulse Rate [ From Monitor] Respiratory 15 15 14 Rate Blood Pressure 148/42 158/46 158/43 O2 Sat by Pulse 100 100 100 Oximetry 08/24/21 08/24/21 08/25/21 23:30 23:45 00:00 Temperature Pulse Rate 86 88 91 H Pulse Rate [ From Monitor] Respiratory 14 15 17 Rate Blood Pressure 151/47 154/58 164/51 O2 Sat by Pulse 100 100 100 Oximetry 08/25/21 08/25/21 08/25/21 00:15 00:16 00:31 Temperature Pulse Rate 92 H 83 77 Pulse Rate [ From Monitor] Respiratory 17 17 Rate Blood Pressure 182/44 154/58 130/36 O2 Sat by Pulse 100 100 100 Oximetry 08/25/21 08/25/21 08/25/21 00:45 01:00 01:15 Temperature Pulse Rate 77 76 82 Pulse Rate [ From Monitor] Respiratory 14 13 12 Rate Blood Pressure 140/44 163/54 163/54 O2 Sat by Pulse 100 100 100 Oximetry 08/25/21 08/25/21 08/25/21 01:30 01:39 01:45 Temperature Pulse Rate 77 77 Pulse Rate [ 86 From Monitor] Respiratory 15 14 14 Rate Blood Pressure 182/53 182/53 O2 Sat by Pulse 100 100 100 Oximetry 08/25/21 08/25/21 08/25/21 02:00 02:15 02:30 Temperature Pulse Rate 80 80 75 Pulse Rate [ From Monitor] Respiratory 17 15 14 Rate Blood Pressure 177/54 177/54 183/58 O2 Sat by Pulse 100 100 100 Oximetry 08/25/21 08/25/21 08/25/21 02:45 03:00 03:15 Temperature Pulse Rate 74 76 76 Pulse Rate [ From Monitor] Respiratory 16 15 15 Rate Blood Pressure 183/58 141/53 141/53 O2 Sat by Pulse 100 100 100 Oximetry 08/25/21 08/25/21 08/25/21 03:31 03:45 04:00 Temperature Pulse Rate 74 79 76 Pulse Rate [ 86 From Monitor] Respiratory 15 14 14 Rate Blood Pressure 133/52 133/52 O2 Sat by Pulse 100 100 100 Oximetry 08/25/21 08/25/21 08/25/21 04:01 04:15 04:31 Temperature Pulse Rate 74 73 76 Pulse Rate [ From Monitor] Respiratory 12 17 13 Rate Blood Pressure 141/54 141/54 183/56 O2 Sat by Pulse 100 100 100 Oximetry 08/25/21 08/25/21 08/25/21 04:33 04:45 04:59 Temperature Pulse Rate 77 79 79 Pulse Rate [ From Monitor] Respiratory 14 Rate Blood Pressure 183/56 183/56 183/56 O2 Sat by Pulse 100 100 Oximetry 08/25/21 08/25/21 08/25/21 05:00 05:15 05:31 Temperature Pulse Rate 76 74 75 Pulse Rate [ From Monitor] Respiratory 15 16 15 Rate Blood Pressure 119/47 119/47 155/80 O2 Sat by Pulse 100 100 100 Oximetry 08/25/21 08/25/21 08/25/21 05:45 06:00 06:15 Temperature Pulse Rate 77 74 76 Pulse Rate [ From Monitor] Respiratory 15 15 16 Rate Blood Pressure 155/80 156/70 156/70 O2 Sat by Pulse 100 100 100 Oximetry 08/25/21 08/25/21 08/25/21 06:30 06:45 07:00 Temperature Pulse Rate 76 75 80 Pulse Rate [ From Monitor] Respiratory 16 15 16 Rate Blood Pressure 161/57 161/57 143/66 O2 Sat by Pulse 100 100 100 Oximetry 08/25/21 08/25/21 08/25/21 07:15 07:30 07:45 Temperature Pulse Rate 77 75 74 Pulse Rate [ From Monitor] Respiratory 16 14 15 Rate Blood Pressure 143/66 163/51 163/51 O2 Sat by Pulse 100 100 100 Oximetry 08/25/21 08/25/21 08/25/21 08:00 08:01 08:15 Temperature 99 F Pulse Rate 78 92 H 71 Pulse Rate [ 86 From Monitor] Respiratory 14 18 15 Rate Blood Pressure 163/56 163/56 O2 Sat by Pulse 100 100 100 Oximetry 08/25/21 08:19 Temperature Pulse Rate 75 Pulse Rate [ From Monitor] Respiratory 14 Rate Blood Pressure 163/56 O2 Sat by Pulse 100 Oximetry Constitutional: no acute distress, other (orally intuabted to MVS, elderly woman) Eyes: non-icteric ENT: oropharynx moist, other (OGT, ETT at 23cm) Neck: supple, no lymphadenopathy, other (Right EJ) Effort: normal Ascultation: Bilateral: diminished breath sounds, rhonchi Percussion: Bilateral: not dull Cardiovascular: regular rate and rhythm, other (S1,S2) Gastrointestinal: normoactive bowel sounds, soft, non-tender, non-distended Integumentary: normal Extremities: no cyanosis, no edema Neurologic: non-focal exam (grossly), pupils equal and round, unable to assess Psychiatric: other (to assess re: AMS) CBC and BMP: 08/25/21 04:12 08/25/21 04:12 ABG, PT/INR, D-dimer: ABG ABG pH 7.491 pH Units (7.350-7.450) H 08/24/21 06:00 ABG pCO2 34.8 mm Hg 08/24/21 06:00 ABG pO2 105.3 mm Hg (80.0-90.0) H 08/24/21 06:00 ABG O2 Saturation 98.1 % (95.0-99.0) 08/24/21 06:00 PT/INR, D-dimer PT 15.6 Sec. (12.2-14.9) H 08/19/21 04:53 INR 1.12 (0.87-1.13) 08/19/21 04:53 Abnormal lab findings: Abnormal Labs 08/19/21 08/19/21 08/19/21 04:53 04:53 04:53 WBC 13.0 H RBC 3.03 L Hgb 9.1 L Hct 28.8 L RDW 20.5 H Lymph % (Auto) Seg Neutrophils % Seg Neuts % (Manual) 96.0 H Lymphocytes % (Manual) 1.0 L Seg Neutrophils # Seg Neutrophils # Man 12.5 H Lymphocytes # (Manual) 0.1 L PT 15.6 H ABG pH ABG pO2 ABG HCO3 ABG O2 Saturation ABG Base Excess ABG Hemoglobin Sodium 132 L D Potassium Chloride 96.8 L BUN Creatinine 3.6 H Glucose 599 H* POC Glucose Lactic Acid Calcium 6.6 L D Phosphorus Magnesium 1.50 L Ferritin ALT 6 L Ammonia Troponin T 0.042 H C-Reactive Protein NT-Pro-B Natriuret Pep Total Protein 5.4 L Albumin 2.4 L TSH Coronavirus (PCR) Crossmatch 08/19/21 08/19/21 08/19/21 04:53 04:53 05:35 WBC RBC Hgb Hct RDW Lymph % (Auto) Seg Neutrophils % Seg Neuts % (Manual) Lymphocytes % (Manual) Seg Neutrophils # Seg Neutrophils # Man Lymphocytes # (Manual) PT ABG pH 7.520 H ABG pO2 152.6 H ABG HCO3 26.3 H ABG O2 Saturation ABG Base Excess 3.4 H ABG Hemoglobin 7.9 L Sodium Potassium Chloride BUN Creatinine Glucose POC Glucose Lactic Acid 2.10 H* Calcium Phosphorus Magnesium Ferritin ALT Ammonia 10.0 L Troponin T C-Reactive Protein NT-Pro-B Natriuret Pep Total Protein Albumin TSH Coronavirus (PCR) Crossmatch 08/19/21 08/19/21 08/19/21 06:01 07:54 08:30 WBC RBC Hgb Hct RDW Lymph % (Auto) Seg Neutrophils % Seg Neuts % (Manual) Lymphocytes % (Manual) Seg Neutrophils # Seg Neutrophils # Man Lymphocytes # (Manual) PT ABG pH ABG pO2 ABG HCO3 ABG O2 Saturation ABG Base Excess ABG Hemoglobin Sodium Potassium Chloride BUN Creatinine Glucose POC Glucose < 10 L Lactic Acid Calcium Phosphorus Magnesium Ferritin ALT Ammonia Troponin T C-Reactive Protein NT-Pro-B Natriuret Pep 96131 H Total Protein Albumin TSH 4.850 H Coronavirus (PCR) Crossmatch 08/19/21 08/19/21 08/19/21 08:30 08:37 09:43 WBC RBC Hgb Hct RDW Lymph % (Auto) Seg Neutrophils % Seg Neuts % (Manual) Lymphocytes % (Manual) Seg Neutrophils # Seg Neutrophils # Man Lymphocytes # (Manual) PT ABG pH ABG pO2 ABG HCO3 ABG O2 Saturation ABG Base Excess ABG Hemoglobin Sodium Potassium Chloride BUN Creatinine Glucose POC Glucose 115 H < 10 L Lactic Acid 3.20 H* Calcium Phosphorus Magnesium Ferritin ALT Ammonia Troponin T C-Reactive Protein NT-Pro-B Natriuret Pep Total Protein Albumin TSH Coronavirus (PCR) Crossmatch 08/19/21 08/19/21 08/19/21 10:07 11:05 11:49 WBC RBC Hgb Hct RDW Lymph % (Auto) Seg Neutrophils % Seg Neuts % (Manual) Lymphocytes % (Manual) Seg Neutrophils # Seg Neutrophils # Man Lymphocytes # (Manual) PT ABG pH ABG pO2 ABG HCO3 ABG O2 Saturation ABG Base Excess ABG Hemoglobin Sodium Potassium Chloride BUN Creatinine Glucose POC Glucose 109 H 32 L 164 H Lactic Acid Calcium Phosphorus Magnesium Ferritin ALT Ammonia Troponin T C-Reactive Protein NT-Pro-B Natriuret Pep Total Protein Albumin TSH Coronavirus (PCR) Crossmatch 08/19/21 08/19/21 08/19/21 14:03 16:57 18:23 WBC RBC Hgb Hct RDW Lymph % (Auto) Seg Neutrophils % Seg Neuts % (Manual) Lymphocytes % (Manual) Seg Neutrophils # Seg Neutrophils # Man Lymphocytes # (Manual) PT ABG pH ABG pO2 ABG HCO3 ABG O2 Saturation ABG Base Excess ABG Hemoglobin Sodium Potassium Chloride BUN Creatinine Glucose POC Glucose 51 L 57 L 50 L Lactic Acid Calcium Phosphorus Magnesium Ferritin ALT Ammonia Troponin T C-Reactive Protein NT-Pro-B Natriuret Pep Total Protein Albumin TSH Coronavirus (PCR) Crossmatch 08/19/21 08/19/21 08/19/21 19:15 21:42 23:29 WBC RBC Hgb Hct RDW Lymph % (Auto) Seg Neutrophils % Seg Neuts % (Manual) Lymphocytes % (Manual) Seg Neutrophils # Seg Neutrophils # Man Lymphocytes # (Manual) PT ABG pH ABG pO2 ABG HCO3 ABG O2 Saturation ABG Base Excess ABG Hemoglobin Sodium Potassium Chloride BUN Creatinine Glucose 26 L* POC Glucose 57 L 42 L Lactic Acid Calcium Phosphorus Magnesium Ferritin ALT Ammonia Troponin T C-Reactive Protein NT-Pro-B Natriuret Pep Total Protein Albumin TSH Coronavirus (PCR) Crossmatch 08/19/21 08/19/21 08/20/21 Unknown Unknown 00:37 WBC RBC Hgb Hct RDW Lymph % (Auto) Seg Neutrophils % Seg Neuts % (Manual) Lymphocytes % (Manual) Seg Neutrophils # Seg Neutrophils # Man Lymphocytes # (Manual) PT ABG pH 7.499 H ABG pO2 239.2 H ABG HCO3 27.6 H ABG O2 Saturation 99.4 H ABG Base Excess 4.3 H ABG Hemoglobin 11.3 L Sodium Potassium Chloride BUN Creatinine Glucose POC Glucose 50 L Lactic Acid Calcium Phosphorus Magnesium Ferritin ALT Ammonia Troponin T C-Reactive Protein NT-Pro-B Natriuret Pep Total Protein Albumin TSH Coronavirus (PCR) Positive A Crossmatch 08/20/21 08/20/21 08/20/21 01:41 02:35 03:41 WBC RBC Hgb Hct RDW Lymph % (Auto) Seg Neutrophils % Seg Neuts % (Manual) Lymphocytes % (Manual) Seg Neutrophils # Seg Neutrophils # Man Lymphocytes # (Manual) PT ABG pH ABG pO2 ABG HCO3 ABG O2 Saturation ABG Base Excess ABG Hemoglobin Sodium Potassium Chloride BUN Creatinine Glucose POC Glucose 54 L 40 L 13 L Lactic Acid Calcium Phosphorus Magnesium Ferritin ALT Ammonia Troponin T C-Reactive Protein NT-Pro-B Natriuret Pep Total Protein Albumin TSH Coronavirus (PCR) Crossmatch 08/20/21 08/20/21 08/20/21 04:15 04:15 04:15 WBC 14.6 H RBC Hgb Hct RDW 20.7 H Lymph % (Auto) 9.9 L Seg Neutrophils % 82.4 H Seg Neuts % (Manual) Lymphocytes % (Manual) Seg Neutrophils # 12.0 H Seg Neutrophils # Man Lymphocytes # (Manual) PT ABG pH ABG pO2 ABG HCO3 ABG O2 Saturation ABG Base Excess ABG Hemoglobin Sodium 132 L Potassium Chloride 93.8 L BUN Creatinine 2.7 H Glucose 52 L POC Glucose Lactic Acid 3.40 H* Calcium 7.1 L Phosphorus Magnesium Ferritin ALT Ammonia Troponin T C-Reactive Protein NT-Pro-B Natriuret Pep Total Protein 4.9 L Albumin 2.6 L TSH Coronavirus (PCR) Crossmatch 08/20/21 08/20/21 08/20/21 05:28 06:33 07:37 WBC RBC Hgb Hct RDW Lymph % (Auto) Seg Neutrophils % Seg Neuts % (Manual) Lymphocytes % (Manual) Seg Neutrophils # Seg Neutrophils # Man Lymphocytes # (Manual) PT ABG pH ABG pO2 ABG HCO3 ABG O2 Saturation ABG Base Excess ABG Hemoglobin Sodium Potassium Chloride BUN Creatinine Glucose POC Glucose 51 L 67 L 59 L Lactic Acid Calcium Phosphorus Magnesium Ferritin ALT Ammonia Troponin T C-Reactive Protein NT-Pro-B Natriuret Pep Total Protein Albumin TSH Coronavirus (PCR) Crossmatch 08/20/21 08/20/21 08/20/21 11:55 12:31 13:37 WBC RBC Hgb Hct RDW Lymph % (Auto) Seg Neutrophils % Seg Neuts % (Manual) Lymphocytes % (Manual) Seg Neutrophils # Seg Neutrophils # Man Lymphocytes # (Manual) PT ABG pH 7.526 H ABG pO2 166.8 H ABG HCO3 ABG O2 Saturation 99.1 H ABG Base Excess ABG Hemoglobin 8.7 L Sodium Potassium Chloride BUN Creatinine Glucose POC Glucose 152 H 150 H Lactic Acid Calcium Phosphorus Magnesium Ferritin ALT Ammonia Troponin T C-Reactive Protein NT-Pro-B Natriuret Pep Total Protein Albumin TSH Coronavirus (PCR) Crossmatch 08/20/21 08/20/21 08/20/21 15:47 17:53 23:19 WBC RBC Hgb Hct RDW Lymph % (Auto) Seg Neutrophils % Seg Neuts % (Manual) Lymphocytes % (Manual) Seg Neutrophils # Seg Neutrophils # Man Lymphocytes # (Manual) PT ABG pH ABG pO2 ABG HCO3 ABG O2 Saturation ABG Base Excess ABG Hemoglobin Sodium Potassium Chloride BUN Creatinine Glucose POC Glucose 204 H 223 H 217 H Lactic Acid Calcium Phosphorus Magnesium Ferritin ALT Ammonia Troponin T C-Reactive Protein NT-Pro-B Natriuret Pep Total Protein Albumin TSH Coronavirus (PCR) Crossmatch 08/21/21 08/21/21 08/21/21 04:46 04:46 04:46 WBC 23.9 H RBC 2.55 L Hgb 7.8 L D Hct 23.6 L D RDW 20.2 H Lymph % (Auto) Seg Neutrophils % Seg Neuts % (Manual) 97.0 H Lymphocytes % (Manual) 1.0 L Seg Neutrophils # Seg Neutrophils # Man 23.2 H Lymphocytes # (Manual) 0.2 L PT ABG pH ABG pO2 ABG HCO3 ABG O2 Saturation ABG Base Excess ABG Hemoglobin Sodium 122 L D Potassium Chloride 87.0 L BUN 23 H Creatinine 3.8 H Glucose 166 H POC Glucose Lactic Acid Calcium 6.8 L Phosphorus 1.60 L Magnesium 1.60 L Ferritin 1787.0 H ALT Ammonia Troponin T C-Reactive Protein 10.60 H NT-Pro-B Natriuret Pep Total Protein Albumin TSH Coronavirus (PCR) Crossmatch 08/21/21 08/21/21 08/21/21 05:11 08:18 11:10 WBC RBC Hgb Hct RDW Lymph % (Auto) Seg Neutrophils % Seg Neuts % (Manual) Lymphocytes % (Manual) Seg Neutrophils # Seg Neutrophils # Man Lymphocytes # (Manual) PT ABG pH 7.495 H ABG pO2 141.5 H ABG HCO3 26.2 H ABG O2 Saturation ABG Base Excess ABG Hemoglobin 7.9 L Sodium Potassium Chloride BUN Creatinine Glucose POC Glucose 151 H 141 H Lactic Acid Calcium Phosphorus Magnesium Ferritin ALT Ammonia Troponin T C-Reactive Protein NT-Pro-B Natriuret Pep Total Protein Albumin TSH Coronavirus (PCR) Crossmatch 08/21/21 08/21/21 08/21/21 14:42 16:43 23:34 WBC RBC Hgb Hct RDW Lymph % (Auto) Seg Neutrophils % Seg Neuts % (Manual) Lymphocytes % (Manual) Seg Neutrophils # Seg Neutrophils # Man Lymphocytes # (Manual) PT ABG pH ABG pO2 ABG HCO3 ABG O2 Saturation ABG Base Excess ABG Hemoglobin Sodium 121 L Potassium 5.2 H Chloride 88.1 L BUN 28 H Creatinine 3.9 H Glucose 130 H POC Glucose 113 H 171 H Lactic Acid Calcium 6.7 L Phosphorus Magnesium 2.80 H Ferritin ALT Ammonia Troponin T C-Reactive Protein NT-Pro-B Natriuret Pep Total Protein Albumin TSH Coronavirus (PCR) Crossmatch 08/22/21 08/22/21 08/22/21 05:09 05:09 05:40 WBC 25.0 H RBC 2.55 L Hgb 7.8 L Hct 23.5 L RDW 21.1 H Lymph % (Auto) Seg Neutrophils % Seg Neuts % (Manual) Lymphocytes % (Manual) Seg Neutrophils # Seg Neutrophils # Man Lymphocytes # (Manual) PT ABG pH 7.513 H ABG pO2 ABG HCO3 ABG O2 Saturation ABG Base Excess ABG Hemoglobin 8.6 L Sodium 135 L D Potassium Chloride BUN 20 H Creatinine 2.9 H Glucose POC Glucose Lactic Acid Calcium 7.6 L Phosphorus 1.40 L D Magnesium Ferritin ALT Ammonia Troponin T C-Reactive Protein NT-Pro-B Natriuret Pep Total Protein Albumin TSH Coronavirus (PCR) Crossmatch 08/22/21 08/22/21 08/22/21 11:37 12:09 17:16 WBC RBC Hgb Hct RDW Lymph % (Auto) Seg Neutrophils % Seg Neuts % (Manual) Lymphocytes % (Manual) Seg Neutrophils # Seg Neutrophils # Man Lymphocytes # (Manual) PT ABG pH ABG pO2 ABG HCO3 ABG O2 Saturation ABG Base Excess ABG Hemoglobin Sodium Potassium Chloride BUN Creatinine Glucose POC Glucose 122 H 121 H 120 H Lactic Acid Calcium Phosphorus Magnesium Ferritin ALT Ammonia Troponin T C-Reactive Protein NT-Pro-B Natriuret Pep Total Protein Albumin TSH Coronavirus (PCR) Crossmatch 0208/23/21 08/23/21 23:49 04:00 04:00 WBC 19.0 H RBC 2.41 L Hgb 7.2 L Hct 22.4 L RDW 22.1 H Lymph % (Auto) Seg Neutrophils % Seg Neuts % (Manual) Lymphocytes % (Manual) Seg Neutrophils # Seg Neutrophils # Man Lymphocytes # (Manual) PT ABG pH ABG pO2 ABG HCO3 ABG O2 Saturation ABG Base Excess ABG Hemoglobin Sodium Potassium Chloride BUN 32 H Creatinine 3.7 H Glucose 109 H POC Glucose 114 H Lactic Acid Calcium 6.8 L Phosphorus 4.70 H D Magnesium Ferritin ALT Ammonia Troponin T C-Reactive Protein NT-Pro-B Natriuret Pep Total Protein Albumin TSH Coronavirus (PCR) Crossmatch 08/23/21 08/23/21 08/23/21 04:54 05:40 11:10 WBC RBC Hgb Hct RDW Lymph % (Auto) Seg Neutrophils % Seg Neuts % (Manual) Lymphocytes % (Manual) Seg Neutrophils # Seg Neutrophils # Man Lymphocytes # (Manual) PT ABG pH 7.475 H ABG pO2 111.8 H ABG HCO3 26.1 H ABG O2 Saturation ABG Base Excess ABG Hemoglobin 7.5 L Sodium Potassium Chloride BUN Creatinine Glucose POC Glucose 108 H 107 H Lactic Acid Calcium Phosphorus Magnesium Ferritin ALT Ammonia Troponin T C-Reactive Protein NT-Pro-B Natriuret Pep Total Protein Albumin TSH Coronavirus (PCR) Crossmatch 08/23/21 08/23/21 08/24/21 16:07 23:52 04:00 WBC 15.5 H RBC 2.22 L Hgb 6.9 L Hct 20.8 L RDW 22.2 H Lymph % (Auto) Seg Neutrophils % Seg Neuts % (Manual) Lymphocytes % (Manual) Seg Neutrophils # Seg Neutrophils # Man Lymphocytes # (Manual) PT ABG pH ABG pO2 ABG HCO3 ABG O2 Saturation ABG Base Excess ABG Hemoglobin Sodium Potassium Chloride BUN Creatinine Glucose POC Glucose 132 H 138 H Lactic Acid Calcium Phosphorus Magnesium Ferritin ALT Ammonia Troponin T C-Reactive Protein NT-Pro-B Natriuret Pep Total Protein Albumin TSH Coronavirus (PCR) Crossmatch 08/24/21 08/24/21 08/24/21 04:00 06:00 06:41 WBC RBC Hgb Hct RDW Lymph % (Auto) Seg Neutrophils % Seg Neuts % (Manual) Lymphocytes % (Manual) Seg Neutrophils # Seg Neutrophils # Man Lymphocytes # (Manual) PT ABG pH 7.491 H ABG pO2 105.3 H ABG HCO3 ABG O2 Saturation ABG Base Excess ABG Hemoglobin 7.0 L Sodium 136 L Potassium Chloride BUN 43 H Creatinine 4.1 H Glucose 104 H POC Glucose Lactic Acid Calcium 6.9 L Phosphorus Magnesium Ferritin ALT Ammonia Troponin T C-Reactive Protein NT-Pro-B Natriuret Pep Total Protein Albumin TSH Coronavirus (PCR) Crossmatch See Detail 08/24/21 08/24/21 08/24/21 12:06 18:46 23:32 WBC RBC Hgb Hct RDW Lymph % (Auto) Seg Neutrophils % Seg Neuts % (Manual) Lymphocytes % (Manual) Seg Neutrophils # Seg Neutrophils # Man Lymphocytes # (Manual) PT ABG pH ABG pO2 ABG HCO3 ABG O2 Saturation ABG Base Excess ABG Hemoglobin Sodium Potassium Chloride BUN Creatinine Glucose POC Glucose 135 H 133 H 131 H Lactic Acid Calcium Phosphorus Magnesium Ferritin ALT Ammonia Troponin T C-Reactive Protein NT-Pro-B Natriuret Pep Total Protein Albumin TSH Coronavirus (PCR) Crossmatch 08/25/21 08/25/21 08/25/21 04:12 04:12 05:34 WBC 12.8 H RBC 2.97 L Hgb 9.1 L Hct 26.8 L D RDW 19.8 H Lymph % (Auto) Seg Neutrophils % Seg Neuts % (Manual) Lymphocytes % (Manual) Seg Neutrophils # Seg Neutrophils # Man Lymphocytes # (Manual) PT ABG pH ABG pO2 ABG HCO3 ABG O2 Saturation ABG Base Excess ABG Hemoglobin Sodium Potassium Chloride BUN 25 H Creatinine 2.9 H Glucose 123 H POC Glucose 117 H Lactic Acid Calcium 7.8 L Phosphorus Magnesium Ferritin ALT Ammonia Troponin T C-Reactive Protein NT-Pro-B Natriuret Pep Total Protein Albumin TSH Coronavirus (PCR) Crossmatch Chest x-ray: pending Allied health notes reviewed: nursing
--- NOTE | 2021-08-25 09:53 | Progress Note ---
Assessment and Plan Impression * End-stage renal disease on maintenance hemodialysis * Acute hypoxic respiratory failure * COVID-19 pneumonia * Hypokalemia * Hyponatremia * Anemia secondary to ESRD * Diabetes * Hypertension * Hypocalcemia Recommendations * Continue hemodialysis MWF or prn, due tomorrow, no need for additional HD today * UF as tolerated * Dialysate adjusted prn, note Ca 6.9->7.8, restarted active vitamin D analog, higher Ca bath * Vent management per primary team * Maintain MAP>65 - pressors prn * Antibiotic therapy as per primary team and infectious diseases * Adjust diet and meds for ESRD state * Epogen with dialysis * No IV, BP or venipuncture in her access arm * Avoid nephrotoxins * Monitor fluid status and electrolytes closely Subjective Date of service: 08/25/21 Principal diagnosis: AHRF; Sepsis; Possible Aspiration; AMS; ESRD; HFpEF; Leukocytosis Interval history: Remains intubated - TV 300, R 12, FiO2 30, PEEP 6. Had HD yesterday, no issues of note Objective - Exam Narrative Exam: General appearance: well-developed, well-nourished, intubated EENT: ATNC, other (ETT in place) Respiratory: Present: Clear to Ascultation Cardiology: regular, S1S2, systolic murmur (harsh SM at RUSB) Gastrointestinal: no distended (soft) Integumentary: no rash, warm and dry Skin: intact - Vital Signs Vital signs: Vital Signs - 12hr 08/24/21 08/24/21 08/24/21 22:00 22:15 22:30 Temperature Pulse Rate 85 93 H 84 Pulse Rate [ From Monitor] Respiratory 15 18 16 Rate Blood Pressure 138/47 138/47 137/45 O2 Sat by Pulse 100 100 100 Oximetry 08/24/21 08/24/21 08/24/21 22:45 23:00 23:15 Temperature Pulse Rate 78 87 84 Pulse Rate [ From Monitor] Respiratory 15 15 14 Rate Blood Pressure 148/42 158/46 158/43 O2 Sat by Pulse 100 100 100 Oximetry 08/24/21 08/24/21 08/25/21 23:30 23:45 00:00 Temperature Pulse Rate 86 88 91 H Pulse Rate [ From Monitor] Respiratory 14 15 17 Rate Blood Pressure 151/47 154/58 164/51 O2 Sat by Pulse 100 100 100 Oximetry 08/25/21 08/25/21 08/25/21 00:15 00:16 00:31 Temperature Pulse Rate 92 H 83 77 Pulse Rate [ From Monitor] Respiratory 17 17 Rate Blood Pressure 182/44 154/58 130/36 O2 Sat by Pulse 100 100 100 Oximetry 08/25/21 08/25/21 08/25/21 00:45 01:00 01:15 Temperature Pulse Rate 77 76 82 Pulse Rate [ From Monitor] Respiratory 14 13 12 Rate Blood Pressure 140/44 163/54 163/54 O2 Sat by Pulse 100 100 100 Oximetry 08/25/21 08/25/21 08/25/21 01:30 01:39 01:45 Temperature Pulse Rate 77 77 Pulse Rate [ 86 From Monitor] Respiratory 15 14 14 Rate Blood Pressure 182/53 182/53 O2 Sat by Pulse 100 100 100 Oximetry 08/25/21 08/25/21 08/25/21 02:00 02:15 02:30 Temperature Pulse Rate 80 80 75 Pulse Rate [ From Monitor] Respiratory 17 15 14 Rate Blood Pressure 177/54 177/54 183/58 O2 Sat by Pulse 100 100 100 Oximetry 08/25/21 08/25/21 08/25/21 02:45 03:00 03:15 Temperature Pulse Rate 74 76 76 Pulse Rate [ From Monitor] Respiratory 16 15 15 Rate Blood Pressure 183/58 141/53 141/53 O2 Sat by Pulse 100 100 100 Oximetry 08/25/21 08/25/21 08/25/21 03:31 03:45 04:00 Temperature Pulse Rate 74 79 76 Pulse Rate [ 86 From Monitor] Respiratory 15 14 14 Rate Blood Pressure 133/52 133/52 O2 Sat by Pulse 100 100 100 Oximetry 08/25/21 08/25/21 08/25/21 04:01 04:15 04:31 Temperature Pulse Rate 74 73 76 Pulse Rate [ From Monitor] Respiratory 12 17 13 Rate Blood Pressure 141/54 141/54 183/56 O2 Sat by Pulse 100 100 100 Oximetry 08/25/21 08/25/21 08/25/21 04:33 04:45 04:59 Temperature Pulse Rate 77 79 79 Pulse Rate [ From Monitor] Respiratory 14 Rate Blood Pressure 183/56 183/56 183/56 O2 Sat by Pulse 100 100 Oximetry 08/25/21 08/25/21 08/25/21 05:00 05:15 05:31 Temperature Pulse Rate 76 74 75 Pulse Rate [ From Monitor] Respiratory 15 16 15 Rate Blood Pressure 119/47 119/47 155/80 O2 Sat by Pulse 100 100 100 Oximetry 08/25/21 08/25/21 08/25/21 05:45 06:00 06:15 Temperature Pulse Rate 77 74 76 Pulse Rate [ From Monitor] Respiratory 15 15 16 Rate Blood Pressure 155/80 156/70 156/70 O2 Sat by Pulse 100 100 100 Oximetry 08/25/21 08/25/21 08/25/21 06:30 06:45 07:00 Temperature Pulse Rate 76 75 80 Pulse Rate [ From Monitor] Respiratory 16 15 16 Rate Blood Pressure 161/57 161/57 143/66 O2 Sat by Pulse 100 100 100 Oximetry 08/25/21 08/25/21 08/25/21 07:15 07:30 07:45 Temperature Pulse Rate 77 75 74 Pulse Rate [ From Monitor] Respiratory 16 14 15 Rate Blood Pressure 143/66 163/51 163/51 O2 Sat by Pulse 100 100 100 Oximetry 08/25/21 08/25/21 08/25/21 08:00 08:01 08:15 Temperature 99 F Pulse Rate 78 92 H 71 Pulse Rate [ 86 From Monitor] Respiratory 14 18 15 Rate Blood Pressure 163/56 163/56 O2 Sat by Pulse 100 100 100 Oximetry 08/25/21 08/25/21 08/25/21 08:19 08:30 08:45 Temperature Pulse Rate 75 72 76 Pulse Rate [ From Monitor] Respiratory 14 15 15 Rate Blood Pressure 163/56 155/50 155/50 O2 Sat by Pulse 100 100 100 Oximetry 08/25/21 08/25/21 08/25/21 09:00 09:15 09:30 Temperature Pulse Rate 69 74 71 Pulse Rate [ From Monitor] Respiratory 15 15 15 Rate Blood Pressure 147/51 147/51 161/53 O2 Sat by Pulse 100 100 100 Oximetry 08/25/21 08/25/21 09:45 09:50 Temperature Pulse Rate 75 77 Pulse Rate [ From Monitor] Respiratory 15 Rate Blood Pressure 161/53 161/53 O2 Sat by Pulse 100 Oximetry - Lab 08/25/21 04:12 08/25/21 04:12 Most recent lab results ABG pH 7.491 pH Units (7.350-7.450) H 08/24/21 06:00 ABG pCO2 34.8 mm Hg 08/24/21 06:00 ABG pO2 105.3 mm Hg (80.0-90.0) H 08/24/21 06:00 ABG HCO3 26.0 mmol/L (20.0-26.0) 08/24/21 06:00 ABG O2 Saturation 98.1 % (95.0-99.0) 08/24/21 06:00 Calcium 7.8 mg/dL (8.4-10.2) L 08/25/21 04:12 Phosphorus 2.70 mg/dL (2.5-4.5) D 08/25/21 04:12 Magnesium 2.10 mg/dL (1.7-2.3) 08/25/21 04:12 Medications & Allergies - Medications Allergies/Adverse Reactions: Allergies No Known Allergies Allergy (Verified 08/25/21 09:27) Home Medications: Home Medications Medication Instructions Recorded Confirmed Last Taken Type amLODIPine 10 mg PO DAILY #30 tablet 01/31/20 08/12/21 Unknown Rx Glimepiride 1 mg PO QDAY #30 tablet 04/21/20 08/12/21 Unknown Rx Diclofenac 1% [Diclofenac 1% 2 - 4 gm TP QID 08/12/21 08/12/21 Unknown History topical gel] Gabapentin 300 mg PO BID 08/12/21 08/12/21 Unknown History Mirtazapine [Remeron 15mg TAB] 15 mg PO QHS 08/12/21 08/12/21 Unknown History cloNIDine [Catapres] 0.1 mg PO BID 08/12/21 08/12/21 Unknown History Ascorbic Acid/Ascorbate Sodium 500 mg PO BID #30 08/17/21 Unknown Rx [Vitamin C 500 mg Tablet Chew] Cholecalciferol Vit D3 [Vitamin D3 1,000 unit PO QDAY #15 tablet 08/17/21 Unknown Rx 1,000 UNIT TAB] Dexamethasone 6 mg PO QID #5 tab 08/17/21 Unknown Rx Famotidine [Pepcid] 20 mg PO QAM #30 tablet 08/17/21 Unknown Rx Zinc Sulfate [Zinc] 220 mg PO BID #30 08/17/21 Unknown Rx Active Medications: Generic Name Dose Route Start Last Admin Trade Name Freq PRN Reason Stop Dose Admin Acetaminophen 650 mg 08/19/21 10:00 Acetaminophen 325 Mg Tab PO Q6H PRN Pain MILD(1-3)/Fever >100.5/MEHTA Albuterol 2.5 mg 08/19/21 11:00 Albuterol 2.5 Mg/3 Ml Nebu IH Q3HRT PRN Shortness Of Breath Albuterol/Ipratropium 1 ampul 08/19/21 14:00 08/25/21 08:24 Ipratropium/Albuterol Sulfate 3 Ml Ampul.Neb IH Not Given Q6HRT ANAHY Amlodipine Besylate 10 mg 08/23/21 10:00 08/25/21 09:50 Amlodipine 10 Mg Tab PO 10 mg QDAY ANAHY Administration Budesonide 0.5 mg 08/19/21 20:00 08/25/21 08:24 Budesonide 0.5 Mg/2 Ml Nebu IH Not Given Q12HRT ANAHY Cholecalciferol 1,000 unit 08/19/21 10:00 08/25/21 09:50 Cholecalciferol (Vit D3) 1000 Unit (25 Mcg) Tab PO 1,000 unit QDAY ANAHY Administration Clonidine HCl 0.1 mg 08/24/21 10:00 08/25/21 09:50 Clonidine 0.1 Mg Tab PO 0.1 mg BID ANAHY Administration Dextrose 0 ml 08/19/21 09:30 08/20/21 11:28 Dextrose 10% *Hypoglycemia IV 50 ml PRN PRN Administration Hypoglycemia Famotidine 20 mg 08/19/21 10:00 08/25/21 09:50 Famotidine 20 Mg Tab PO 20 mg QAM ANAHY Administration Fentanyl 50 mcg 08/20/21 10:03 08/25/21 00:45 Fentanyl 100 Mcg/2 Ml Inj IV 50 mcg Q2HR PRN Administration For CPOT greater than 3 Heparin Sodium (Porcine) 5,000 unit 08/19/21 11:00 08/25/21 06:06 Heparin 5,000 Unit/1 Ml Vial SUB-Q 5,000 unit Q8HR ANAHY Administration Sodium Chloride 100 mls @ 999 mls/hr 08/19/21 11:14 Nacl 0.9% IV LEVI PRN Hypotension Meropenem/Sodium Chloride 1 gram in 100 mls @ 100 mls/hr 08/21/21 18:00 08/24/21 18:48 Merrem/Ns 1 Gram/100 Ml IV 100 mls/hr QPM ANAHY Administration Protocol Sodium Chloride 100 mls @ 999 mls/hr 08/24/21 10:50 Nacl 0.9% IV LEVI PRN Hypotension Insulin Human Lispro 0 unit 08/19/21 12:00 08/25/21 06:07 Insulin Lispro 100 Unit/Ml SUB-Q Not Given Q6HR [facility] Protocol Labetalol HCl 10 mg 08/23/21 12:17 08/25/21 04:59 Labetalol 20 Mg/4 Ml Inj IV 10 mg Q4H PRN Administration Hypertension Metoclopramide HCl 5 mg 08/20/21 12:00 08/25/21 04:51 Metoclopramide 10 Mg/2 Ml Inj IV Not Given Q8H ANAHY Mirtazapine 15 mg 08/20/21 10:02 Mirtazapine 15 Mg Tab PO QHS PRN Sleep Naloxone HCl 0.1 mg 08/19/21 09:30 Naloxone 0.4 Mg/1 Ml Inj IV Q2MIN PRN Res Rate </= 8 or 02 SAT < 92% Paricalcitol 2 mcg 08/24/21 10:50 08/24/21 17:56 Paricalcitol 2 Mcg/1 Ml Inj IV 2 mcg LEVI PRN Administration hemodialysis Senna 17.6 mg 08/20/21 22:00 08/24/21 21:01 Sennosides Oral Liqd 8.8 Mg/5 Ml Oral Liqd PO Not Given QHS ANAHY Simple Syrup 30 ml 08/19/21 17:44 08/20/21 03:48 Simple Syrup 15 Ml FEEDTUBE 30 ml PRN PRN Administration Hypoglycemia Sodium Chloride 10 ml 08/19/21 10:00 08/25/21 09:50 Sodium Chloride 0.9% 10 Ml Flush Syringe IV 10 ml BID ANAHY Administration Sodium Chloride 10 ml 08/19/21 09:30 Sodium Chloride 0.9% 10 Ml Flush Syringe IV PRN PRN LINE FLUSH Zinc Sulfate 220 mg 08/19/21 11:00 08/25/21 09:50 Zinc Sulfate 220 Mg Cap PO 220 mg BID ANAHY Administration
[2021-08-25 10:51] LABS: ABG Base Excess 4.8 mmol/L (-2.0-3.0); ABG HCO3 29.2 mmol/L (20.0-26.0); ABG Methemoglobin 0.5 % (0.0-1.5); ABG Oxygen Saturation 97.6 % (95.0-99.0); ABG PCO2 42.8 mm Hg; ABG PH 7.453 pH Units (7.350-7.450); ABG PO2 98.5 mm Hg (80.0-90.0)
--- NOTE | 2021-08-25 15:49 | Progress Note ---
Assessment and Plan Cultures: 08/19/2021 blood culture: No growth 08/19/2021 tracheal aspirate culture: Light growth of usual respiratory anastacia 08/19/2021 COVID-19 PCR: Positive A/P: 86-year-old female with diabetes, ESRD on HD, recently hospitalized for COVID- 19, was treated with steroids, did not receive Remdesivir due to her ESRD, was hypoxic but gradually weaned to room air at the time of discharge has now been readmitted after being found unresponsive and noted to be severely hypoglycemic with blood sugar < 20 mg/dl. #Recent COVID-19 pneumonia: Treated with steroids during previous admission, Remdesivir not indicated due to renal failure. CXR with b/l airspace opacities without much interval change, likely represents COVID-19 sequelae, might take a while before imaging shows improvement. Ferritin 1787, NT proBNP 80412, CRP 10.6. Possibility of HCAP. Continue empiric abx. #Acute hypoxic respiratory failure: Due to above. #ESRD on HD: Renally adjust antibiotics #Acute encephalopathy: Likely metabolic given severe hypoglycemia Recs: -Given worsening leukocytosis, not a candidate for Tocilizumab -Continue meropenem -continue renally dosed vancomycin -Planned 8 days antibiotics. -Poor prognosis Sully Metcalf MD [facility] O: [phone] F: [phone] Subjective Date of service: 08/25/21 Principal diagnosis: AHRF; Sepsis; Possible Aspiration; AMS; ESRD; HFpEF; Leukocytosis Interval history: Afebrile, white count continuing to improve. Objective - Exam Narrative Exam: Physical Exam: Constitutional: intubated, on the vent Head, Ears, Nose: Normocephalic, atraumatic. External ears, nose normal Eyes: Conjunctivae/corneas clear. No icterus. No ptosis. Neck: intubated Oral: intubated Cardiovascular: S1, S2 + Respiratory: AE fair GI: Soft, bowel sounds + Musculoskeletal: No pedal edema, no cyanosis. Skin: No rash or abscess Hem/Lymphatic: No palpable cervical or supraclavicular nodes. No lymphangitis Psych: no agitation Neurological: unresponsive, intubated, on the vent, exam limited - Constitutional Vitals: Vital Signs Temp Pulse Resp BP Pulse Ox 99.2 F 73 13 136/41 100 08/25/21 12:00 08/25/21 15:20 08/25/21 15:20 08/25/21 15:00 08/25/21 15:44 Temperature -Last 24 Hours Temperature 99.2 F Temperature 99 F Temperature 98.5 F Temperature 98.0 F Temperature 97.8 F Temperature 99 F - Labs CBC & Chem 7: 08/25/21 04:12 08/25/21 04:12 Labs: Abnormal lab results 08/24/21 08/24/21 08/24/21 Range/Units 06:41 18:46 23:32 WBC (4.5-11.0) K/mm3 RBC (3.65-5.03) M/mm3 Hgb (10.1-14.3) gm/dl Hct (30.3-42.9) % RDW (13.2-15.2) % ABG pH (7.350-7.450) pH Units ABG pO2 (80.0-90.0) mm Hg ABG HCO3 (20.0-26.0) mmol/L ABG Base Excess (-2.0-3.0) mmol/L ABG Hemoglobin (12.0-16.0) gm/dl BUN (7-17) mg/dL Creatinine (0.6-1.2) mg/dL Glucose (65-100) mg/dL POC Glucose 133 H 131 H (70-105) mg/dL Calcium (8.4-10.2) mg/dL Crossmatch See Detail 08/25/21 08/25/21 08/25/21 Range/Units 04:12 04:12 05:34 WBC 12.8 H (4.5-11.0) K/mm3 RBC 2.97 L (3.65-5.03) M/mm3 Hgb 9.1 L (10.1-14.3) gm/dl Hct 26.8 L D (30.3-42.9) % RDW 19.8 H (13.2-15.2) % ABG pH (7.350-7.450) pH Units ABG pO2 (80.0-90.0) mm Hg ABG HCO3 (20.0-26.0) mmol/L ABG Base Excess (-2.0-3.0) mmol/L ABG Hemoglobin (12.0-16.0) gm/dl BUN 25 H (7-17) mg/dL Creatinine 2.9 H (0.6-1.2) mg/dL Glucose 123 H (65-100) mg/dL POC Glucose 117 H (70-105) mg/dL Calcium 7.8 L (8.4-10.2) mg/dL Crossmatch 08/25/21 08/25/21 Range/Units 10:30 12:19 WBC (4.5-11.0) K/mm3 RBC (3.65-5.03) M/mm3 Hgb (10.1-14.3) gm/dl Hct (30.3-42.9) % RDW (13.2-15.2) % ABG pH 7.453 H (7.350-7.450) pH Units ABG pO2 98.5 H (80.0-90.0) mm Hg ABG HCO3 29.2 H (20.0-26.0) mmol/L ABG Base Excess 4.8 H (-2.0-3.0) mmol/L ABG Hemoglobin 11.2 L (12.0-16.0) gm/dl BUN (7-17) mg/dL Creatinine (0.6-1.2) mg/dL Glucose (65-100) mg/dL POC Glucose 128 H (70-105) mg/dL Calcium (8.4-10.2) mg/dL Crossmatch
--- NOTE | 2021-08-25 17:07 | Progress Note ---
Assessment and Plan Assessment and plan: This is a 86-year-old female with HTN, DM, ESRD on HD, recent hospitalization Covid pneumonia admitted with severe hypoglycemia and acute hypoxic respiratory failure requiring ventilatory support Neuro: Acute metabolic encephalopathy -Likely related to severe hypoglycemia -CT head with no acute findings, remote lacunar infarct, generalized atrophy and microvascular ischemia -Fentanyl drip -DC post extubation -Continue home Remeron -Avoid delirium -Maintain sleep-wake cycle Cardio: NSTEMI, h/o CHF with preserved EF, hypertension -Cardiology consulted, appreciate recommendations -Echocardiogram shows EF of 40 to 45% -Continue home amlodipine and clonidine -Blood pressure monitor per protocol -Per cardiology due to decrease in EF will consider outpatient ischemic evaluation when patient is clinically stable -Per cardiology: -Echo 08/19/2021-EF 40 to 45%. Mild concentric LVH. Doppler flow pattern suggests impaired LV relaxation. Right ventricular systolic function is normal. Echo bright density suspected in the right atrium. Moderate aortic stenosis. Highest mean aortic valve gradient is 21.6 mmHg. Mild aortic regurgitation. Mitral valve leaflets are thickened. Mitral valve leaflets are calcified. Moderate mitral regurgitation - Echo03/2020 -Moderate concentric left ventricular hypertrophy.Left ventricular ejection fraction is 60-65%. There is moderately increased filling pressure consistent with grade 2 diastolic dysfunction. Aortic valve is tricuspid, sclerotic and focally calcified. Mild aortic stenosis. Mild to moderate aortic valve insufficiency. The left ventricular size is small. The aortic valve max velocity is 2.57 m/s. The peak gradient is 26.4 mmHg with a mean gradient of 16.0 mmHg, the left ventricle outflow tract measures 2.00 cm. CORNELIA (VTI) is 1.08 cm. Mild mitral valve regurgitation.Normal right ventricular size and wall thickness. There is small pleural effusion in the left lateral re gion. There is small pleural effusion in the right lateral region.No pericardial effusion seen. -Lexiscan MPI stress test 05/14/2019-normal myocardial perfusion without evidence of ischemia or prior infarction Respiratory: Acute hypoxic respiratory failure -Intubated in the emergency department for airway protection on 08/19 with a 7.00 ETT -[facility] consulted, appreciate recommendations -A.m. vent settings: PSV 6/12 -See RT notes for titration -Extubated 08/25 -A.m. ABG and CXR noted -VAP bundle -Daily SBT/SAT trial as tolerated -SPO2 monitoring GI: Severe protein calorie malnutrition -Nutrition consult for tube feeding -BR: Senokot -PPI -24 hours +872 mL -BM 08/24 : ESRD on HD, hyponatremia -Nephrology consulted, appreciate recommendations -Hemodialysis per nephrology (MWF or as needed) -Strict intake and output -Avoid nephrotoxic medications -Renally dose medication -Monitor and replace electrolytes as needed -Restart active vitamin D analog -Trend BMP ID: Sepsis, COVID-19 pneumonia, ? HCAP -COVID-19 PCR positive -Infectious disease consulted, appreciate recommendations -Contact/droplet precautions -Not a candidate for remdesivir due to ESRD -Per ID: Given worsening leukocytosis not a candidate for Actemra -IV antibiotic therapy: Meropenem, renally dose vancomycin -Trend COVID-19 inflammatory markers -CRP 10.6 Heme: Anemia of chronic disease, leukocytosis -Epogen per nephrology -Trend CBC -Transfuse hemoglobin less than 7 -S/p 1 unit PRBC -SCD to bilateral lower extremity while in bed -Subcu heparin Endo: Severe hypoglycemia -S/p D10 drip -Avoid hypoglycemia -Accu-Cheks every 6 The high probability of a clinically significant, sudden or life threatening deterioration of the [multiple] system(s) required my full and direct attention, intervention and personal management. The aggregate critical care time was [60] minutes. This time is in addition to time spent performing reported procedures but includes the following: [x] Data Review and interpretation [x] Patient assessment and monitoring of vital signs [x] Documentation [x] Medication orders and management Disposition Plan: ICU Total Time Spent with Patient (Minutes): 60 History Interval history: This is a 86-year-old female with DM, ESRD on HD, HTN, recent diagnosis of COVID-19 who presented to emergency department on 08/19 via EMS with hypoglycemia after being found unresponsive by the family and on scene her blood glucose was less than 20 and received D10 with EMS with improvement of blood glucose but remained unresponsive upon arrival to the emergency department. Patient was intubated for airway protection in the ED and lab work showed blood sugar of 599 for which she received insulin and recurrent blood sugar check was less than 10. Patient was admitted to the hospitalist service with acute hypoxic respiratory failure, acute metabolic encephalopathy, hypoglycemia, sepsis due to possible aspiration, hypomagnesemia, severe protein calorie malnutrition with consults to CCM, ID and nephrology. Of note and recent admission to the hospital patient was noted to have decreased p.o. intake and seems family continued home antidiabetic regimen despite decreased p.o. intake. Hospital Course to Date: 08/20: Off sedation this am, open eyes spontaneously but does not follow any commands. Patient remains hypoglycemic throught the night despite D10W gtt and TF at goal. TF is now on hold this am due to vomiting. Reglan was initiated Q8 hrs, X1 dose of IV steroids, and continue D10w and Q1hr BG check for now. Midodrine was also added TID for hypotension. Possible PST today once more awake, plan to start weaning vent for possible extubation. 08/21: Patient remains on thevent, mentation is unchanged, off sedation. BG improved, no more vomiting, patient is tolerating TF. On SSI Q6hrs, low NA this am, will switch D10w to NS at 50cc,a and mag and phosp repleted. Possible HD today per Nephro. BP also improved, continue midodrine TID. Family conference call today with the attending. Patient's condition and overall poor prognosis were thoroughly discussed with patient's family. They want to keep patient as a FULL code status and leaning towards Trach and PEG. D/w [facility], will continue to monitor patient's mental status over the weekend. If no improvement by tuesday, plan to consult General Surgery for possible trach and PEG tube placement. 08/22: Patient appears a lot more awake this am, however, still not following commands. BG remains stable, still tolerating TF. Patient is now hypertensive, will hold midodrine for now. Tolerated HD overnight. Electrolytes replaced, repeat lab in the am 08/23: Awake and following simple commands this am. Possible PST today, plan to wean for possible extubation. Hypertensive this am, home norvasc resumed. Patient is tolerating TF at goal and BG remains stable 08/24: Patient was restarted on home Coreg due to hypotension, received hemodialysis today and D10 drip discontinued. 08/25: Patient tolerating CPAP trial today, responded appropriately to PRBC. Patient extubated today. Leukocytosis is improving Hospitalist Physical - Constitutional Vitals: Temp Pulse Resp BP Pulse Ox 99.2 F 66 13 157/61 100 08/25/21 12:00 08/25/21 16:30 08/25/21 16:30 08/25/21 16:30 08/25/21 16:30 General appearance: Present: no acute distress, other (Intubated) - EENT Eyes: Present: PERRL, EOM intact ENT: dentition normal - Neck Neck: Present: normal ROM - Respiratory Respiratory effort: normal Respiratory: bilateral: diminished - Cardiovascular Rhythm: regular Heart Sounds: Present: S1 & S2, systolic murmur, diastolic murmur - Extremities Extremities: no ischemia, pulses intact, pulses symmetrical, No edema, normal temperature, normal color Peripheral Pulses: within normal limits - Abdominal General gastrointestinal: soft, non-tender, non-distended, normal bowel sounds - Integumentary Integumentary: Present: warm, dry - Psychiatric Psychiatric: other - Neurologic Neurologic: other (Withdraws all extremities to pain, opens eyes to verbal stimuli) - Allied Health Allied health notes reviewed: nursing, RT, social work HEART Score - HEART Score Troponin: Troponin T 0.042 ng/mL (0.00-0.029) H 08/19/21 04:53 Results - Labs CBC & Chem 7: 08/25/21 04:12 08/25/21 04:12 Labs: Laboratory Last Values WBC 12.8 K/mm3 (4.5-11.0) H 08/25/21 04:12 RBC 2.97 M/mm3 (3.65-5.03) L 08/25/21 04:12 Hgb 9.1 gm/dl (10.1-14.3) L 08/25/21 04:12 Hct 26.8 % (30.3-42.9) L D 08/25/21 04:12 MCV 90 fl (79-97) 08/25/21 04:12 MCH 31 pg (28-32) 08/25/21 04:12 MCHC 34 % (30-34) 08/25/21 04:12 RDW 19.8 % (13.2-15.2) H 08/25/21 04:12 Plt Count 285 K/mm3 (140-440) 08/25/21 04:12 Lymph % (Auto) 9.9 % (13.4-35.0) L 08/20/21 04:15 Mclennan % (Auto) 4.5 % (0.0-7.3) 08/20/21 04:15 Eos % (Auto) 2.8 % (0.0-4.3) 08/20/21 04:15 Baso % (Auto) 0.4 % (0.0-1.8) 08/20/21 04:15 Lymph # (Auto) 1.4 K/mm3 (1.2-5.4) 08/20/21 04:15 Mclennan # (Auto) 0.7 K/mm3 (0.0-0.8) 08/20/21 04:15 Eos # (Auto) 0.4 K/mm3 (0.0-0.4) 08/20/21 04:15 Baso # (Auto) 0.1 K/mm3 (0.0-0.1) 08/20/21 04:15 Add Manual Diff Complete 08/21/21 04:46 Total Counted 100 08/21/21 04:46 Seg Neutrophils % Cardiac Rehab Nurse 08/21/21 04:46 Seg Neuts % (Manual) 97.0 % (40.0-70.0) H 08/21/21 04:46 Band Neutrophils % 0 % 08/21/21 04:46 Lymphocytes % (Manual) 1.0 % (13.4-35.0) L 08/21/21 04:46 Reactive Lymphs % (Man) 0 % 08/21/21 04:46 Monocytes % (Manual) 2.0 % (0.0-7.3) 08/21/21 04:46 Eosinophils % (Manual) 0 % (0.0-4.3) 08/21/21 04:46 Basophils % (Manual) 0 % (0.0-1.8) 08/21/21 04:46 Metamyelocytes % 0 % 08/21/21 04:46 Myelocytes % 0 % 08/21/21 04:46 Promyelocytes % 0 % 08/21/21 04:46 Blast Cells % 0 % 08/21/21 04:46 Nucleated RBC % Not Reportable 08/21/21 04:46 Seg Neutrophils # 12.0 K/mm3 (1.8-7.7) H 08/20/21 04:15 Seg Neutrophils # Man 23.2 K/mm3 (1.8-7.7) H 08/21/21 04:46 Band Neutrophils # 0.0 K/mm3 08/21/21 04:46 Lymphocytes # (Manual) 0.2 K/mm3 (1.2-5.4) L 08/21/21 04:46 Abs React Lymphs (Man) 0.0 K/mm3 08/21/21 04:46 Monocytes # (Manual) 0.5 K/mm3 (0.0-0.8) 08/21/21 04:46 Eosinophils # (Manual) 0.0 K/mm3 (0.0-0.4) 08/21/21 04:46 Basophils # (Manual) 0.0 K/mm3 (0.0-0.1) 08/21/21 04:46 Metamyelocytes # 0.0 K/mm3 08/21/21 04:46 Myelocytes # 0.0 K/mm3 08/21/21 04:46 Promyelocytes # 0.0 K/mm3 08/21/21 04:46 Blast Cells # 0.0 K/mm3 08/21/21 04:46 WBC Morphology Not Reportable 08/21/21 04:46 Hypersegmented Neuts Not Reportable 08/21/21 04:46 Hyposegmented Neuts Not Reportable 08/21/21 04:46 Hypogranular Neuts Not Reportable 08/21/21 04:46 Smudge Cells Not Reportable 08/21/21 04:46 Toxic Granulation Not Reportable 08/21/21 04:46 Toxic Vacuolation Not Reportable 08/21/21 04:46 Dohle Bodies Not Reportable 08/21/21 04:46 Pelger-Huet Anomaly Not Reportable 08/21/21 04:46 Dhara Rods Not Reportable 08/21/21 04:46 Platelet Estimate Consistent w auto 08/21/21 04:46 Clumped Platelets Not Reportable 08/21/21 04:46 Plt Clumps, EDTA Not Reportable 08/21/21 04:46 Large Platelets Not Reportable 08/21/21 04:46 Giant Platelets Not Reportable 08/21/21 04:46 Platelet Satelliting Not Reportable 08/21/21 04:46 Plt Morphology Comment Not Reportable 08/21/21 04:46 RBC Morphology Not Reportable 08/21/21 04:46 Dimorphic RBCs Not Reportable 08/21/21 04:46 Polychromasia Few 08/21/21 04:46 Hypochromasia 1+ 08/21/21 04:46 Poikilocytosis Not Reportable 08/21/21 04:46 Anisocytosis 1+ 08/21/21 04:46 Microcytosis Not Reportable 08/21/21 04:46 Macrocytosis Not Reportable 08/21/21 04:46 Spherocytes Not Reportable 08/21/21 04:46 Pappenheimer Bodies Not Reportable 08/21/21 04:46 Sickle Cells Not Reportable 08/21/21 04:46 Target Cells Not Reportable 08/21/21 04:46 Tear Drop Cells Not Reportable 08/21/21 04:46 Ovalocytes Not Reportable 08/21/21 04:46 Helmet Cells Not Reportable 08/21/21 04:46 Leyva-[place] Bodies Not Reportable 08/21/21 04:46 [place] Rings Not Reportable 08/21/21 04:46 Korina Cells Not Reportable 08/21/21 04:46 Bite Cells Not Reportable 08/21/21 04:46 Crenated Cell Not Reportable 08/21/21 04:46 Elliptocytes Not Reportable 08/21/21 04:46 Acanthocytes (Spur) Not Reportable 08/21/21 04:46 Rouleaux Not Reportable 08/21/21 04:46 Hemoglobin C Crystals Not Reportable 08/21/21 04:46 Schistocytes Not Reportable 08/21/21 04:46 Malaria parasites Not Reportable 08/21/21 04:46 Keshav Bodies Not Reportable 08/21/21 04:46 Hem Pathologist Commnt No 08/21/21 04:46 PT 15.6 Sec. (12.2-14.9) H 08/19/21 04:53 INR 1.12 (0.87-1.13) 08/19/21 04:53 APTT 30.3 Sec. (24.2-36.6) 08/19/21 04:53 ABG pH 7.453 pH Units (7.350-7.450) H 08/25/21 10:30 ABG pCO2 42.8 mm Hg 08/25/21 10:30 ABG pO2 98.5 mm Hg (80.0-90.0) H 08/25/21 10:30 ABG HCO3 29.2 mmol/L (20.0-26.0) H 08/25/21 10:30 ABG O2 Saturation 97.6 % (95.0-99.0) 08/25/21 10:30 ABG O2 Content 15.1 (0.0-44) 08/25/21 10:30 ABG Base Excess 4.8 mmol/L (-2.0-3.0) H 08/25/21 10:30 ABG Hemoglobin 11.2 gm/dl (12.0-16.0) L 08/25/21 10:30 ABG Carboxyhemoglobin 1.6 % (0.0-5.0) 08/25/21 10:30 ABG Methemoglobin 0.5 % (0.0-1.5) 08/25/21 10:30 Oxyhemoglobin 95.5 % (95.0-99.0) 08/25/21 10:30 FiO2 30 % 08/25/21 10:30 Sodium 140 mmol/L (137-145) 08/25/21 04:12 Potassium 4.0 mmol/L (3.6-5.0) 08/25/21 04:12 Chloride 101.0 mmol/L (98-107) 08/25/21 04:12 Carbon Dioxide 26 mmol/L (22-30) 08/25/21 04:12 Anion Gap 17 mmol/L 08/25/21 04:12 BUN 25 mg/dL (7-17) H 08/25/21 04:12 Creatinine 2.9 mg/dL (0.6-1.2) H 08/25/21 04:12 Estimated GFR 15 ml/min 08/25/21 04:12 BUN/Creatinine Ratio 9 % 08/25/21 04:12 Glucose 123 mg/dL (65-100) H 08/25/21 04:12 POC Glucose 124 mg/dL (70-105) H 08/25/21 16:39 Lactic Acid 3.40 mmol/L (0.7-2.0) H* 08/20/21 04:15 Calcium 7.8 mg/dL (8.4-10.2) L 08/25/21 04:12 Phosphorus 2.70 mg/dL (2.5-4.5) D 08/25/21 04:12 Magnesium 2.10 mg/dL (1.7-2.3) 08/25/21 04:12 Ferritin 1787.0 ng/mL (10.0-200.0) H 08/21/21 04:46 Total Bilirubin 0.30 mg/dL (0.1-1.2) 08/20/21 04:15 AST 17 units/L (5-40) 08/20/21 04:15 ALT 7 units/L (7-56) 08/20/21 04:15 Alkaline Phosphatase 85 units/L (35-129) 08/20/21 04:15 Ammonia 10.0 umol/L (25-60) L 08/19/21 04:53 Total Creatine Kinase 105 units/L (30-135) 08/19/21 04:53 CK-MB (CK-2) 1.1 ng/mL (0.0-4.0) 08/19/21 04:53 CK-MB (CK-2) Rel Index 1.0 (0-4) 08/19/21 04:53 Troponin T 0.042 ng/mL (0.00-0.029) H 08/19/21 04:53 C-Reactive Protein 10.60 mg/dL (0.00-1.30) H 08/21/21 04:46 NT-Pro-B Natriuret Pep 68856 pg/mL (0-900) H 08/19/21 06:01 Total Protein 4.9 g/dL (6.3-8.2) L 08/20/21 04:15 Albumin 2.6 g/dL (3.9-5) L 08/20/21 04:15 Albumin/Globulin Ratio 1.1 % 08/20/21 04:15 Triglycerides 122 mg/dL (2-149) 08/19/21 04:53 Cholesterol 160 mg/dL (50-199) 08/19/21 04:53 LDL Cholesterol Direct 88 mg/dL (50-130) 08/19/21 04:53 HDL Cholesterol 47 mg/dL (40-59) 08/19/21 04:53 Cholesterol/HDL Ratio 3.40 % 08/19/21 04:53 TSH 4.850 mlU/mL (0.270-4.200) H 08/19/21 08:30 Random Vancomycin 17.8 ug/mL (0-40.0) 08/21/21 04:46 Coronavirus (PCR) Positive (Negative) A 08/19/21 Unknown Blood Type O POSITIVE 08/24/21 06:41 Antibody Screen Negative 08/24/21 06:41 Crossmatch See Detail 08/24/21 06:41 [place]/IV: Voiding Method Incontinent Active Medications - Current Medications Current Medications: Generic Name Dose Route Start Last Admin Trade Name Freq PRN Reason Stop Dose Admin Acetaminophen 650 mg 08/19/21 10:00 Acetaminophen 325 Mg Tab PO Q6H PRN Pain MILD(1-3)/Fever >100.5/MEHTA Albuterol 2.5 mg 08/19/21 11:00 Albuterol 2.5 Mg/3 Ml Nebu IH Q3HRT PRN Shortness Of Breath Albuterol/Ipratropium 1 ampul 08/19/21 14:00 08/25/21 15:20 Ipratropium/Albuterol Sulfate 3 Ml Ampul.Neb IH 1 ampul Q6HRT ANAHY Administration Amlodipine Besylate 10 mg 08/23/21 10:00 08/25/21 09:50 Amlodipine 10 Mg Tab PO 10 mg QDAY ANAHY Administration Budesonide 0.5 mg 08/19/21 20:00 08/25/21 08:24 Budesonide 0.5 Mg/2 Ml Nebu IH Not Given Q12HRT ANAHY Cholecalciferol 1,000 unit 08/19/21 10:00 08/25/21 09:50 Cholecalciferol (Vit D3) 1000 Unit (25 Mcg) Tab PO 1,000 unit QDAY ANAHY Administration Clonidine HCl 0.1 mg 08/24/21 10:00 08/25/21 09:50 Clonidine 0.1 Mg Tab PO 0.1 mg BID ANAHY Administration Dextrose 0 ml 08/19/21 09:30 08/20/21 11:28 Dextrose 10% *Hypoglycemia IV 50 ml PRN PRN Administration Hypoglycemia Famotidine 20 mg 08/19/21 10:00 08/25/21 09:50 Famotidine 20 Mg Tab PO 20 mg QAM ANAHY Administration Fentanyl 50 mcg 08/20/21 10:03 08/25/21 00:45 Fentanyl 100 Mcg/2 Ml Inj IV 50 mcg Q2HR PRN Administration For CPOT greater than 3 Heparin Sodium (Porcine) 5,000 unit 08/19/21 11:00 08/25/21 15:08 Heparin 5,000 Unit/1 Ml Vial SUB-Q 5,000 unit Q8HR ANAHY Administration Meropenem/Sodium Chloride 1 gram in 100 mls @ 100 mls/hr 08/21/21 18:00 08/24/21 18:48 Merrem/Ns 1 Gram/100 Ml IV 100 mls/hr QPM ANAHY Administration Protocol Sodium Chloride 100 mls @ 999 mls/hr 08/24/21 10:50 Nacl 0.9% IV LEVI PRN Hypotension Insulin Human Lispro 0 unit 08/19/21 12:00 08/25/21 12:20 Insulin Lispro 100 Unit/Ml SUB-Q Not Given Q6HR [facility] Protocol Labetalol HCl 10 mg 08/23/21 12:17 08/25/21 12:16 Labetalol 20 Mg/4 Ml Inj IV 10 mg Q4H PRN Administration Hypertension Mirtazapine 15 mg 08/20/21 10:02 Mirtazapine 15 Mg Tab PO QHS PRN Sleep Naloxone HCl 0.1 mg 08/19/21 09:30 Naloxone 0.4 Mg/1 Ml Inj IV Q2MIN PRN Res Rate </= 8 or 02 SAT < 92% Paricalcitol 2 mcg 08/24/21 10:50 08/24/21 17:56 Paricalcitol 2 Mcg/1 Ml Inj IV 2 mcg LEVI PRN Administration hemodialysis Senna 17.6 mg 08/20/21 22:00 08/24/21 21:01 Sennosides Oral Liqd 8.8 Mg/5 Ml Oral Liqd PO Not Given QHS ANAHY Simple Syrup 30 ml 08/19/21 17:44 08/20/21 03:48 Simple Syrup 15 Ml FEEDTUBE 30 ml PRN PRN Administration Hypoglycemia Sodium Chloride 10 ml 08/19/21 10:00 08/25/21 09:50 Sodium Chloride 0.9% 10 Ml Flush Syringe IV 10 ml BID ANAHY Administration Sodium Chloride 10 ml 08/19/21 09:30 Sodium Chloride 0.9% 10 Ml Flush Syringe IV PRN PRN LINE FLUSH Zinc Sulfate 220 mg 08/19/21 11:00 08/25/21 09:50 Zinc Sulfate 220 Mg Cap PO 220 mg BID ANAHY Administration Nutrition/Malnutrition Assess - Dietary Evaluation Nutrition/Malnutrition Findings: Nutrition Notes Start: 08/19/21 14:18 Freq: Status: Active Protocol: Document 08/22/21 17:21 MIGUEL ANGEL (Rec: 08/22/21 17:31 MIGUEL ANGEL [id number]) Nutrition Notes Initial or Follow up Brief Note Current Diet NPO. TF-Nepro w/CARBSTEADY @ 28 ml/hr (from D 08/19). Height 5 ft 2 in Weight 74.843 kg [facility] Body Weight (kg) 50.00 BMI 30.2 Weight change and time frame No body weight change reported in 3 days. Weight Status Overweight Subjective/Other Information RD consult for routine F/U on TF tolerance. Pt continues on Mechanical Ventilation. TF continues as prescribed, with adjustment on the Flush quantity recommended. Percent of energy/protein needs met: Prescribed TF-Nepro w/ CARBSTEADY @ 28 ml/hr provides for energy/protein needs (1, 197 Kcal/54 g) during LOS, 100 % Kcal; 86% AA. #1 Nutrition Diagnosis Inadequate oral intake Diagnosis Progress(for reassessment Continues documentation) Is patient on ventilator? Yes Is Patient Ambulatory and/or Out of Bed No REE-([facility]-confined to bed) 1389.180 Kcal/Kg value to use for calculation 16 Approximate Energy Requirements Using 1197 kcal/Kg Calculation Used for Recommendations Kcal/kg Additional Notes Protein: 1-1.2 g/Kg; 63-76 g/ day. Fluids: 1 ml/Kcal, or as per MD. Nutrition Intervention Nutrition Support: Nepro w/CARBSTEADY @ 28 ml/hr. Flush: 100 ml water Q 4 hr, or as per MD. Kcal 1,197 Protein (gm) 54 Carbohydrates (gm) 107 Fat (gm) 64 Fluid (mL) 485 Fiber (gm) 8 % RDI: 100% Kcal; 86% AA. Goal #1 Provide at least 75% of energy /protein needs through Enteral Feeding during LOS. Goal #2 Maintain body weight within +/ -3% of admission body weight during LOS. Follow-Up By: 08/28/21 Additional Comments Continue monitoring TF tolerance and BM.
[2021-08-25] MEDS: MEROPENEM/NS 1 GRAM/100 ML 1 GRAM/100 ML BAG IV SCH (17:57)
[2021-08-25] MEDS: SENNOSIDES ORAL LIQD 8.8 MG/5 ML ORAL LIQD PO SCH (22:23)
[2021-08-26] MEDS: INSULIN LISPRO 100 UNIT/ML SUB-Q SCH ×4 (00:17→19:31)
[2021-08-26] MEDS: IPRATROPIUM/ALBUTEROL SULFATE 3 ML AMPUL.NEB IH SCH ×2 (02:30→09:24)
[2021-08-26 04:47] LABS: Hematocrit 26.5 % (30.3-42.9); Mean Corpuscular HGB Conc 34 % (30-34); Mean Corpuscular Volume 91 fl (79-97); Platelet Count 321 K/mm3 (140-440); Red Blood Count 2.92 M/mm3 (3.65-5.03); Red Cell Distribution Width 20.5 % (13.2-15.2)
[2021-08-26 05:11] LABS: C-Reactive Protein 9.1 mg/dL (0.00-1.30); Calcium 7.9 mg/dL (8.4-10.2)
[2021-08-26] MEDS: HEPARIN 5,000 UNIT/1 ML VIAL SUB-Q SCH ×2 (06:11→14:19)
[2021-08-26] MEDS: BUDESONIDE 0.5 MG/2 ML NEBU IH SCH ×2 (09:24→21:47)
--- NOTE | 2021-08-26 09:51 | Progress Note ---
Assessment and Plan Impression * End-stage renal disease on maintenance hemodialysis * Acute hypoxic respiratory failure * COVID-19 pneumonia * Hypokalemia * Hyponatremia * Anemia secondary to ESRD * Diabetes * Hypertension * Hypocalcemia Recommendations * Continue hemodialysis MWF or prn, due today * UF as tolerated * Dialysate adjusted prn, note Ca 6.9->7.8->7.9, restarted active vitamin D analog, higher Ca bath * Maintain MAP>65 - pressors prn * Antibiotic therapy as per primary team and infectious diseases * Adjust diet and meds for ESRD state * Epogen with dialysis * No IV, BP or venipuncture in her access arm * Avoid nephrotoxins * Monitor fluid status and electrolytes closely Subjective Date of service: 08/26/21 Principal diagnosis: AHRF; Sepsis; Possible Aspiration; AMS; ESRD; HFpEF; Leukocytosis Interval history: Extubated, resting this AM Objective - Exam Narrative Exam: General appearance: well-developed, well-nourished, intubated EENT: ATNC, on NC Respiratory: Present: Clear to Ascultation Cardiology: regular, S1S2, systolic murmur (harsh SM at RUSB) Gastrointestinal: no distended (soft) Integumentary: no rash, warm and dry Skin: intact - Vital Signs Vital signs: Vital Signs - 12hr 08/25/21 08/25/21 08/25/21 22:00 22:16 22:23 Temperature Pulse Rate 71 69 72 Pulse Rate [ Anterior Bilateral] Pulse Rate [ Bilateral] Pulse Rate [ From Monitor] Respiratory 13 15 Rate Respiratory Rate [Anterior Bilateral] Respiratory Rate [Bilateral ] Blood Pressure 150/47 150/47 150/47 O2 Sat by Pulse 100 100 Oximetry 08/25/21 08/25/21 08/25/21 22:30 22:46 23:00 Temperature Pulse Rate 76 71 74 Pulse Rate [ Anterior Bilateral] Pulse Rate [ Bilateral] Pulse Rate [ From Monitor] Respiratory 11 L 13 13 Rate Respiratory Rate [Anterior Bilateral] Respiratory Rate [Bilateral ] Blood Pressure 150/47 166/49 166/49 O2 Sat by Pulse 100 100 100 Oximetry 08/25/21 08/25/21 08/25/21 23:16 23:30 23:46 Temperature Pulse Rate 68 70 76 Pulse Rate [ Anterior Bilateral] Pulse Rate [ Bilateral] Pulse Rate [ From Monitor] Respiratory 13 13 12 Rate Respiratory Rate [Anterior Bilateral] Respiratory Rate [Bilateral ] Blood Pressure 147/50 148/48 148/48 O2 Sat by Pulse 100 100 100 Oximetry 08/26/21 08/26/21 08/26/21 00:00 00:16 00:30 Temperature 98.1 F Pulse Rate 77 75 79 Pulse Rate [ Anterior Bilateral] Pulse Rate [ Bilateral] Pulse Rate [ 74 From Monitor] Respiratory 13 12 13 Rate Respiratory Rate [Anterior Bilateral] Respiratory Rate [Bilateral ] Blood Pressure 148/48 161/51 171/52 O2 Sat by Pulse 100 100 100 Oximetry 08/26/21 08/26/21 08/26/21 00:46 01:00 01:16 Temperature Pulse Rate 82 79 71 Pulse Rate [ Anterior Bilateral] Pulse Rate [ Bilateral] Pulse Rate [ From Monitor] Respiratory 15 13 15 Rate Respiratory Rate [Anterior Bilateral] Respiratory Rate [Bilateral ] Blood Pressure 171/52 171/52 144/47 O2 Sat by Pulse 100 100 100 Oximetry 08/26/21 08/26/21 08/26/21 01:30 01:46 02:00 Temperature Pulse Rate 76 74 77 Pulse Rate [ Anterior Bilateral] Pulse Rate [ Bilateral] Pulse Rate [ From Monitor] Respiratory 12 15 12 Rate Respiratory Rate [Anterior Bilateral] Respiratory Rate [Bilateral ] Blood Pressure 154/48 154/48 155/54 O2 Sat by Pulse 100 100 100 Oximetry 08/26/21 08/26/21 08/26/21 02:16 02:30 02:46 Temperature Pulse Rate 71 71 69 Pulse Rate [ Anterior Bilateral] Pulse Rate [ Bilateral] Pulse Rate [ From Monitor] Respiratory 16 14 12 Rate Respiratory Rate [Anterior Bilateral] Respiratory Rate [Bilateral ] Blood Pressure 155/54 155/54 141/41 O2 Sat by Pulse 100 100 100 Oximetry 08/26/21 08/26/21 08/26/21 03:00 03:16 03:30 Temperature Pulse Rate 72 69 70 Pulse Rate [ Anterior Bilateral] Pulse Rate [ Bilateral] Pulse Rate [ From Monitor] Respiratory 14 14 13 Rate Respiratory Rate [Anterior Bilateral] Respiratory Rate [Bilateral ] Blood Pressure 141/41 145/42 158/43 O2 Sat by Pulse 100 100 100 Oximetry 08/26/21 08/26/21 08/26/21 03:46 04:00 04:16 Temperature 97.9 F Pulse Rate 75 75 70 Pulse Rate [ Anterior Bilateral] Pulse Rate [ Bilateral] Pulse Rate [ 74 From Monitor] Respiratory 13 13 14 Rate Respiratory Rate [Anterior Bilateral] Respiratory Rate [Bilateral ] Blood Pressure 158/43 164/52 164/52 O2 Sat by Pulse 100 100 100 Oximetry 08/26/21 08/26/21 08/26/21 04:30 04:46 05:00 Temperature Pulse Rate 70 70 71 Pulse Rate [ Anterior Bilateral] Pulse Rate [ Bilateral] Pulse Rate [ From Monitor] Respiratory 14 13 14 Rate Respiratory Rate [Anterior Bilateral] Respiratory Rate [Bilateral ] Blood Pressure 164/52 143/43 143/43 O2 Sat by Pulse 100 100 100 Oximetry 08/26/21 08/26/21 08/26/21 05:16 05:30 05:46 Temperature Pulse Rate 77 71 70 Pulse Rate [ Anterior Bilateral] Pulse Rate [ Bilateral] Pulse Rate [ From Monitor] Respiratory 13 14 14 Rate Respiratory Rate [Anterior Bilateral] Respiratory Rate [Bilateral ] Blood Pressure 136/41 136/41 132/39 O2 Sat by Pulse 100 100 100 Oximetry 08/26/21 08/26/21 08/26/21 06:00 06:16 06:30 Temperature Pulse Rate 73 73 74 Pulse Rate [ Anterior Bilateral] Pulse Rate [ Bilateral] Pulse Rate [ From Monitor] Respiratory 14 15 12 Rate Respiratory Rate [Anterior Bilateral] Respiratory Rate [Bilateral ] Blood Pressure 132/39 146/38 149/41 O2 Sat by Pulse 100 100 100 Oximetry 08/26/21 08/26/21 08/26/21 06:46 07:00 07:16 Temperature Pulse Rate 70 67 76 Pulse Rate [ Anterior Bilateral] Pulse Rate [ Bilateral] Pulse Rate [ From Monitor] Respiratory 18 14 13 Rate Respiratory Rate [Anterior Bilateral] Respiratory Rate [Bilateral ] Blood Pressure 149/41 149/41 139/39 O2 Sat by Pulse 100 100 100 Oximetry 08/26/21 08/26/21 08/26/21 07:19 07:30 07:32 Temperature 98.3 F Pulse Rate 74 Pulse Rate [ Anterior Bilateral] Pulse Rate [ Bilateral] Pulse Rate [ 70 From Monitor] Respiratory 13 13 Rate Respiratory Rate [Anterior Bilateral] Respiratory Rate [Bilateral ] Blood Pressure 156/46 O2 Sat by Pulse 100 100 Oximetry 08/26/21 08/26/21 08/26/21 07:35 07:46 08:00 Temperature Pulse Rate 70 74 70 Pulse Rate [ Anterior Bilateral] Pulse Rate [ Bilateral] Pulse Rate [ From Monitor] Respiratory 15 15 Rate Respiratory Rate [Anterior Bilateral] Respiratory Rate [Bilateral ] Blood Pressure 156/46 156/46 O2 Sat by Pulse 97 96 Oximetry 08/26/21 08/26/21 08/26/21 08:16 08:30 08:46 Temperature Pulse Rate 70 73 75 Pulse Rate [ Anterior Bilateral] Pulse Rate [ Bilateral] Pulse Rate [ From Monitor] Respiratory 16 15 15 Rate Respiratory Rate [Anterior Bilateral] Respiratory Rate [Bilateral ] Blood Pressure 137/40 140/42 140/42 O2 Sat by Pulse 96 97 97 Oximetry 08/26/21 08/26/21 08/26/21 09:00 09:16 09:24 Temperature Pulse Rate 76 69 Pulse Rate [ 71 Anterior Bilateral] Pulse Rate [ 73 Bilateral] Pulse Rate [ From Monitor] Respiratory 16 16 Rate Respiratory 15 Rate [Anterior Bilateral] Respiratory 13 Rate [Bilateral ] Blood Pressure 164/44 164/44 O2 Sat by Pulse 96 98 Oximetry - Lab 08/26/21 04:31 08/26/21 04:31 Most recent lab results ABG pH 7.453 pH Units (7.350-7.450) H 08/25/21 10:30 ABG pCO2 42.8 mm Hg 08/25/21 10:30 ABG pO2 98.5 mm Hg (80.0-90.0) H 08/25/21 10:30 ABG HCO3 29.2 mmol/L (20.0-26.0) H 08/25/21 10:30 ABG O2 Saturation 97.6 % (95.0-99.0) 08/25/21 10:30 Calcium 7.9 mg/dL (8.4-10.2) L 08/26/21 04:31 Phosphorus 2.80 mg/dL (2.5-4.5) 08/26/21 04:31 Magnesium 2.20 mg/dL (1.7-2.3) 08/26/21 04:31 Medications & Allergies - Medications Allergies/Adverse Reactions: Allergies No Known Allergies Allergy (Verified 08/25/21 09:27) Home Medications: Home Medications Medication Instructions Recorded Confirmed Last Taken Type amLODIPine 10 mg PO DAILY #30 tablet 01/31/20 08/25/21 Unknown Rx Glimepiride 1 mg PO QDAY #30 tablet 04/21/20 08/25/21 Unknown Rx Diclofenac 1% [Diclofenac 1% 2 - 4 gm TP QID 08/12/21 08/25/21 Unknown History topical gel] Gabapentin 300 mg PO BID 08/12/21 08/25/21 Unknown History Mirtazapine [Remeron 15mg TAB] 15 mg PO QHS 08/12/21 08/25/21 Unknown History cloNIDine [Catapres] 0.1 mg PO BID 08/12/21 08/25/21 Unknown History Famotidine [Pepcid] 20 mg PO QAM #30 tablet 08/17/21 08/25/21 Unknown Rx Zinc Sulfate [Zinc] 220 mg PO BID #30 /08/25/21 Unknown Rx Active Medications: Generic Name Dose Route Start Last Admin Trade Name Freq PRN Reason Stop Dose Admin Acetaminophen 650 mg 08/19/21 10:00 Acetaminophen 325 Mg Tab PO Q6H PRN Pain MILD(1-3)/Fever >100.5/MEHTA Albuterol 2.5 mg 08/19/21 11:00 Albuterol 2.5 Mg/3 Ml Nebu IH Q3HRT PRN Shortness Of Breath Albuterol/Ipratropium 1 ampul 08/19/21 14:00 08/26/21 02:30 Ipratropium/Albuterol Sulfate 3 Ml Ampul.Neb IH Not Given Q6HRT ANAHY Amlodipine Besylate 10 mg 08/23/21 10:00 08/25/21 09:50 Amlodipine 10 Mg Tab PO 10 mg QDAY ANAHY Administration Budesonide 0.5 mg 08/19/21 20:00 08/25/21 20:29 Budesonide 0.5 Mg/2 Ml Nebu IH Not Given Q12HRT ANAHY Cholecalciferol 1,000 unit 08/19/21 10:00 08/25/21 09:50 Cholecalciferol (Vit D3) 1000 Unit (25 Mcg) Tab PO 1,000 unit QDAY ANAHY Administration Clonidine HCl 0.1 mg 08/24/21 10:00 08/25/21 22:23 Clonidine 0.1 Mg Tab PO 0.1 mg BID ANAHY Administration Dextrose 0 ml 08/19/21 09:30 08/20/21 11:28 Dextrose 10% *Hypoglycemia IV 50 ml PRN PRN Administration Hypoglycemia Famotidine 20 mg 08/19/21 10:00 08/25/21 09:50 Famotidine 20 Mg Tab PO 20 mg QAM ANAHY Administration Fentanyl 50 mcg 08/20/21 10:03 08/25/21 00:45 Fentanyl 100 Mcg/2 Ml Inj IV 50 mcg Q2HR PRN Administration For CPOT greater than 3 Heparin Sodium (Porcine) 5,000 unit 08/19/21 11:00 08/26/21 06:11 Heparin 5,000 Unit/1 Ml Vial SUB-Q 5,000 unit Q8HR ANAHY Administration Meropenem/Sodium Chloride 1 gram in 100 mls @ 100 mls/hr 08/21/21 18:00 0 08/25/21 17:57 Merrem/Ns 1 Gram/100 Ml IV 100 mls/hr QPM ANAHY Administration Protocol Sodium Chloride 100 mls @ 999 mls/hr 08/24/21 10:50 Nacl 0.9% IV LEVI PRN Hypotension Insulin Human Lispro 0 unit 08/19/21 12:00 08/26/21 06:11 Insulin Lispro 100 Unit/Ml SUB-Q Not Given Q6HR [facility] Protocol Labetalol HCl 10 mg 08/23/21 12:17 08/25/21 12:16 Labetalol 20 Mg/4 Ml Inj IV 10 mg Q4H PRN Administration Hypertension Mirtazapine 15 mg 08/20/21 10:02 Mirtazapine 15 Mg Tab PO QHS PRN Sleep Naloxone HCl 0.1 mg 08/19/21 09:30 Naloxone 0.4 Mg/1 Ml Inj IV Q2MIN PRN Res Rate </= 8 or 02 SAT < 92% Paricalcitol 2 mcg 08/24/21 10:50 08/24/21 17:56 Paricalcitol 2 Mcg/1 Ml Inj IV 2 mcg LEVI PRN Administration hemodialysis Senna 17.6 mg 08/20/21 22:00 08/25/21 22:23 Sennosides Oral Liqd 8.8 Mg/5 Ml Oral Liqd PO Not Given QHS ANAHY Simple Syrup 30 ml 08/19/21 17:44 08/20/21 03:48 Simple Syrup 15 Ml FEEDTUBE 30 ml PRN PRN Administration Hypoglycemia Sodium Chloride 10 ml 08/19/21 10:00 08/25/21 22:23 Sodium Chloride 0.9% 10 Ml Flush Syringe IV 10 ml BID ANAHY Administration Sodium Chloride 10 ml 08/19/21 09:30 Sodium Chloride 0.9% 10 Ml Flush Syringe IV PRN PRN LINE FLUSH Zinc Sulfate 220 mg 08/19/21 11:00 08/25/21 22:24 Zinc Sulfate 220 Mg Cap PO 220 mg BID ANAHY Administration
[2021-08-26] MEDS: FAMOTIDINE 20 MG TAB PO SCH (10:02)
[2021-08-26] MEDS: cloNIDine 0.1 MG TAB PO SCH ×2 (10:02→22:44)
[2021-08-26] MEDS: amLODIPine 10 MG TAB PO SCH (10:02)
[2021-08-26] MEDS: CHOLECALCIFEROL (VIT D3) 1000 UNIT (25 mcg) TAB PO SCH (10:02)
[2021-08-26] MEDS: ZINC SULFATE 220 MG CAP PO SCH (10:02)
--- NOTE | 2021-08-26 10:44 | Progress Note ---
Assessment and Plan Acute Hypoxemic Respiratory Failure on MVS Sepsis Recurrent hypoglycemic events h/o COVID Pneumonia Possible Aspiration Leukocytosis Acute Metabolic Encephalopathy Hypomagnesemia End stage renal disease Congestive heart failure with preserved EF (chronic) - GI consult for PEG placement - discontinue scheduled duonebs & Fentanyl - prn BIPAP - ok to transfer to medical floor - continue care as below otherwise; - continue to wean supplemental oxygen for target O2 sat's > 90% acutely - aspiration precautions - prn bronchodilators with pulmonary hygiene per RT - avoid nephrotoxins, renally dose all medications - continue to avoid benzodiazepine's, reduce the possibility of delirium - AB's per ID rec's - prn analgesia per CPOT score - Maintenance of sleep-wake cycle, avoid delirium - continue enteral nutritional support at goal rate as tolerated - G.I. & VTE prophylaxis - PT/OT/ROM exercises - continue mobility protocols for pressure ulcer prophylaxis - Monitor hemodynamics closely - continue other care per attending / other consultants - discharge planning ongoing concurrently .... Re-evaluate in am & prn Subjective Date of service: 08/26/21 Principal diagnosis: AHRF; Sepsis; Possible Aspiration; AMS; ESRD; HFpEF; Leukocytosis Interval history: Patient is seen today for: Acute Hypoxemic Respiratory Failure; Recurrent Hypoglycemia; Sepsis; Possible Aspiration; AMS; ESRD; HFpEF; Leukocytosis Seen and examined at bedside; 24hour events reviewed; nursing and respiratory care staff consulted; no adverse overnight events reported to me; resting in bed; doing well post extubation; on 35% Venti-mask; AMS is persistent Objective Vital Signs - 12hr 08/25/21 08/25/21 08/25/21 22:46 23:00 23:16 Temperature Pulse Rate 71 74 68 Pulse Rate [ Anterior Bilateral] Pulse Rate [ Bilateral] Pulse Rate [ From Monitor] Respiratory 13 13 13 Rate Respiratory Rate [Anterior Bilateral] Respiratory Rate [Bilateral ] Blood Pressure 166/49 166/49 147/50 O2 Sat by Pulse 100 100 100 Oximetry 08/25/21 08/25/21 08/26/21 23:30 23:46 00:00 Temperature 98.1 F Pulse Rate 70 76 77 Pulse Rate [ Anterior Bilateral] Pulse Rate [ Bilateral] Pulse Rate [ 74 From Monitor] Respiratory 13 12 13 Rate Respiratory Rate [Anterior Bilateral] Respiratory Rate [Bilateral ] Blood Pressure 148/48 148/48 148/48 O2 Sat by Pulse 100 100 100 Oximetry 08/26/21 08/26/21 08/26/21 00:16 00:30 00:46 Temperature Pulse Rate 75 79 82 Pulse Rate [ Anterior Bilateral] Pulse Rate [ Bilateral] Pulse Rate [ From Monitor] Respiratory 12 13 15 Rate Respiratory Rate [Anterior Bilateral] Respiratory Rate [Bilateral ] Blood Pressure 161/51 171/52 171/52 O2 Sat by Pulse 100 100 100 Oximetry 08/26/21 08/26/21 08/26/21 01:00 01:16 01:30 Temperature Pulse Rate 79 71 76 Pulse Rate [ Anterior Bilateral] Pulse Rate [ Bilateral] Pulse Rate [ From Monitor] Respiratory 13 15 12 Rate Respiratory Rate [Anterior Bilateral] Respiratory Rate [Bilateral ] Blood Pressure 171/52 144/47 154/48 O2 Sat by Pulse 100 100 100 Oximetry 08/26/21 08/26/21 08/26/21 01:46 02:00 02:16 Temperature Pulse Rate 74 77 71 Pulse Rate [ Anterior Bilateral] Pulse Rate [ Bilateral] Pulse Rate [ From Monitor] Respiratory 15 12 16 Rate Respiratory Rate [Anterior Bilateral] Respiratory Rate [Bilateral ] Blood Pressure 154/48 155/54 155/54 O2 Sat by Pulse 100 100 100 Oximetry 08/26/21 08/26/21 08/26/21 02:30 02:46 03:00 Temperature Pulse Rate 71 69 72 Pulse Rate [ Anterior Bilateral] Pulse Rate [ Bilateral] Pulse Rate [ From Monitor] Respiratory 14 12 14 Rate Respiratory Rate [Anterior Bilateral] Respiratory Rate [Bilateral ] Blood Pressure 155/54 141/41 141/41 O2 Sat by Pulse 100 100 100 Oximetry 08/26/21 08/26/21 08/26/21 03:16 03:30 03:46 Temperature Pulse Rate 69 70 75 Pulse Rate [ Anterior Bilateral] Pulse Rate [ Bilateral] Pulse Rate [ From Monitor] Respiratory 14 13 13 Rate Respiratory Rate [Anterior Bilateral] Respiratory Rate [Bilateral ] Blood Pressure 145/42 158/43 158/43 O2 Sat by Pulse 100 100 100 Oximetry 08/26/21 08/26/21 08/26/21 04:00 04:16 04:30 Temperature 97.9 F Pulse Rate 75 70 70 Pulse Rate [ Anterior Bilateral] Pulse Rate [ Bilateral] Pulse Rate [ 74 From Monitor] Respiratory 13 14 14 Rate Respiratory Rate [Anterior Bilateral] Respiratory Rate [Bilateral ] Blood Pressure 164/52 164/52 164/52 O2 Sat by Pulse 100 100 100 Oximetry 08/26/21 08/26/21 08/26/21 04:46 05:00 05:16 Temperature Pulse Rate 70 71 77 Pulse Rate [ Anterior Bilateral] Pulse Rate [ Bilateral] Pulse Rate [ From Monitor] Respiratory 13 14 13 Rate Respiratory Rate [Anterior Bilateral] Respiratory Rate [Bilateral ] Blood Pressure 143/43 143/43 136/41 O2 Sat by Pulse 100 100 100 Oximetry 08/26/21 08/26/21 08/26/21 05:30 05:46 06:00 Temperature Pulse Rate 71 70 73 Pulse Rate [ Anterior Bilateral] Pulse Rate [ Bilateral] Pulse Rate [ From Monitor] Respiratory 14 14 14 Rate Respiratory Rate [Anterior Bilateral] Respiratory Rate [Bilateral ] Blood Pressure 136/41 132/39 132/39 O2 Sat by Pulse 100 100 100 Oximetry 08/26/21 08/26/21 08/26/21 06:16 06:30 06:46 Temperature Pulse Rate 73 74 70 Pulse Rate [ Anterior Bilateral] Pulse Rate [ Bilateral] Pulse Rate [ From Monitor] Respiratory 15 12 18 Rate Respiratory Rate [Anterior Bilateral] Respiratory Rate [Bilateral ] Blood Pressure 146/38 149/41 149/41 O2 Sat by Pulse 100 100 100 Oximetry 08/26/21 08/26/21 08/26/21 07:00 07:16 07:19 Temperature 98.3 F Pulse Rate 67 76 Pulse Rate [ Anterior Bilateral] Pulse Rate [ Bilateral] Pulse Rate [ From Monitor] Respiratory 14 13 Rate Respiratory Rate [Anterior Bilateral] Respiratory Rate [Bilateral ] Blood Pressure 149/41 139/39 O2 Sat by Pulse 100 100 Oximetry 08/26/21 08/26/21 08/26/21 07:30 07:32 07:35 Temperature Pulse Rate 74 70 Pulse Rate [ Anterior Bilateral] Pulse Rate [ Bilateral] Pulse Rate [ 70 From Monitor] Respiratory 13 13 Rate Respiratory Rate [Anterior Bilateral] Respiratory Rate [Bilateral ] Blood Pressure 156/46 O2 Sat by Pulse 100 100 Oximetry 08/26/21 08/26/21 08/26/21 07:46 08:00 08:16 Temperature Pulse Rate 74 70 70 Pulse Rate [ Anterior Bilateral] Pulse Rate [ Bilateral] Pulse Rate [ From Monitor] Respiratory 15 15 16 Rate Respiratory Rate [Anterior Bilateral] Respiratory Rate [Bilateral ] Blood Pressure 156/46 156/46 137/40 O2 Sat by Pulse 97 96 96 Oximetry 08/26/21 08/26/21 08/26/21 08:30 08:46 09:00 Temperature Pulse Rate 73 75 76 Pulse Rate [ Anterior Bilateral] Pulse Rate [ Bilateral] Pulse Rate [ From Monitor] Respiratory 15 15 16 Rate Respiratory Rate [Anterior Bilateral] Respiratory Rate [Bilateral ] Blood Pressure 140/42 140/42 164/44 O2 Sat by Pulse 97 97 96 Oximetry 08/26/21 08/26/21 08/26/21 09:16 09:24 09:30 Temperature Pulse Rate 69 74 Pulse Rate [ 71 Anterior Bilateral] Pulse Rate [ 73 Bilateral] Pulse Rate [ From Monitor] Respiratory 16 15 Rate Respiratory 15 Rate [Anterior Bilateral] Respiratory 13 Rate [Bilateral ] Blood Pressure 164/44 164/44 O2 Sat by Pulse 98 98 Oximetry 08/26/21 08/26/21 08/26/21 09:46 10:00 10:02 Temperature Pulse Rate 77 80 78 Pulse Rate [ Anterior Bilateral] Pulse Rate [ Bilateral] Pulse Rate [ From Monitor] Respiratory 15 13 Rate Respiratory Rate [Anterior Bilateral] Respiratory Rate [Bilateral ] Blood Pressure 158/39 158/39 156/38 O2 Sat by Pulse 98 96 Oximetry 08/26/21 10:16 Temperature Pulse Rate 77 Pulse Rate [ Anterior Bilateral] Pulse Rate [ Bilateral] Pulse Rate [ From Monitor] Respiratory 16 Rate Respiratory Rate [Anterior Bilateral] Respiratory Rate [Bilateral ] Blood Pressure 156/38 O2 Sat by Pulse 97 Oximetry Constitutional: no acute distress Eyes: non-icteric ENT: oropharynx moist Neck: supple, no lymphadenopathy Effort: normal Ascultation: Bilateral: clear, diminished breath sounds Percussion: Bilateral: not dull Cardiovascular: regular rate and rhythm, other (S1,S2) Gastrointestinal: normoactive bowel sounds, soft, non-tender, non-distended Integumentary: normal Extremities: no cyanosis, no edema Neurologic: non-focal exam (grossly), pupils equal and round, unable to assess Psychiatric: other (unable to assess re: AMS) CBC and BMP: 08/26/21 04:31 08/27/21 08:08 ABG, PT/INR, D-dimer: ABG ABG pH 7.453 pH Units (7.350-7.450) H 08/25/21 10:30 ABG pCO2 42.8 mm Hg 08/25/21 10:30 ABG pO2 98.5 mm Hg (80.0-90.0) H 08/25/21 10:30 ABG O2 Saturation 97.6 % (95.0-99.0) 08/25/21 10:30 PT/INR, D-dimer PT 15.6 Sec. (12.2-14.9) H 08/19/21 04:53 INR 1.12 (0.87-1.13) 08/19/21 04:53 D-Dimer 2539.68 ng/mlDDU (0-234) H 08/26/21 04:31 Abnormal lab findings: Abnormal Labs 08/19/21 08/19/21 08/19/21 04:53 04:53 04:53 WBC 13.0 H RBC 3.03 L Hgb 9.1 L Hct 28.8 L RDW 20.5 H Lymph % (Auto) Seg Neutrophils % Seg Neuts % (Manual) 96.0 H Lymphocytes % (Manual) 1.0 L Seg Neutrophils # Seg Neutrophils # Man 12.5 H Lymphocytes # (Manual) 0.1 L PT 15.6 H D-Dimer ABG pH ABG pO2 ABG HCO3 ABG O2 Saturation ABG Base Excess ABG Hemoglobin Sodium 132 L D Potassium Chloride 96.8 L BUN Creatinine 3.6 H Glucose 599 H* POC Glucose Lactic Acid Calcium 6.6 L D Phosphorus Magnesium 1.50 L Ferritin ALT 6 L Ammonia Lactate Dehydrogenase Troponin T 0.042 H C-Reactive Protein NT-Pro-B Natriuret Pep Total Protein 5.4 L Albumin 2.4 L TSH Coronavirus (PCR) Crossmatch 08/19/21 08/19/21 08/19/21 04:53 04:53 05:35 WBC RBC Hgb Hct RDW Lymph % (Auto) Seg Neutrophils % Seg Neuts % (Manual) Lymphocytes % (Manual) Seg Neutrophils # Seg Neutrophils # Man Lymphocytes # (Manual) PT D-Dimer ABG pH 7.520 H ABG pO2 152.6 H ABG HCO3 26.3 H ABG O2 Saturation ABG Base Excess 3.4 H ABG Hemoglobin 7.9 L Sodium Potassium Chloride BUN Creatinine Glucose POC Glucose Lactic Acid 2.10 H* Calcium Phosphorus Magnesium Ferritin ALT Ammonia 10.0 L Lactate Dehydrogenase Troponin T C-Reactive Protein NT-Pro-B Natriuret Pep Total Protein Albumin TSH Coronavirus (PCR) Crossmatch 08/19/21 08/19/21 08/19/21 06:01 07:54 08:30 WBC RBC Hgb Hct RDW Lymph % (Auto) Seg Neutrophils % Seg Neuts % (Manual) Lymphocytes % (Manual) Seg Neutrophils # Seg Neutrophils # Man Lymphocytes # (Manual) PT D-Dimer ABG pH ABG pO2 ABG HCO3 ABG O2 Saturation ABG Base Excess ABG Hemoglobin Sodium Potassium Chloride BUN Creatinine Glucose POC Glucose < 10 L Lactic Acid Calcium Phosphorus Magnesium Ferritin ALT Ammonia Lactate Dehydrogenase Troponin T C-Reactive Protein NT-Pro-B Natriuret Pep 11985 H Total Protein Albumin TSH 4.850 H Coronavirus (PCR) Crossmatch 08/19/21 08/19/21 08/19/21 08:30 08:37 09:43 WBC RBC Hgb Hct RDW Lymph % (Auto) Seg Neutrophils % Seg Neuts % (Manual) Lymphocytes % (Manual) Seg Neutrophils # Seg Neutrophils # Man Lymphocytes # (Manual) PT D-Dimer ABG pH ABG pO2 ABG HCO3 ABG O2 Saturation ABG Base Excess ABG Hemoglobin Sodium Potassium Chloride BUN Creatinine Glucose POC Glucose 115 H < 10 L Lactic Acid 3.20 H* Calcium Phosphorus Magnesium Ferritin ALT Ammonia Lactate Dehydrogenase Troponin T C-Reactive Protein NT-Pro-B Natriuret Pep Total Protein Albumin TSH Coronavirus (PCR) Crossmatch 08/19/21 08/19/21 08/19/21 10:07 11:05 11:49 WBC RBC Hgb Hct RDW Lymph % (Auto) Seg Neutrophils % Seg Neuts % (Manual) Lymphocytes % (Manual) Seg Neutrophils # Seg Neutrophils # Man Lymphocytes # (Manual) PT D-Dimer ABG pH ABG pO2 ABG HCO3 ABG O2 Saturation ABG Base Excess ABG Hemoglobin Sodium Potassium Chloride BUN Creatinine Glucose POC Glucose 109 H 32 L 164 H Lactic Acid Calcium Phosphorus Magnesium Ferritin ALT Ammonia Lactate Dehydrogenase Troponin T C-Reactive Protein NT-Pro-B Natriuret Pep Total Protein Albumin TSH Coronavirus (PCR) Crossmatch 08/19/21 08/19/21 08/19/21 14:03 16:57 18:23 WBC RBC Hgb Hct RDW Lymph % (Auto) Seg Neutrophils % Seg Neuts % (Manual) Lymphocytes % (Manual) Seg Neutrophils # Seg Neutrophils # Man Lymphocytes # (Manual) PT D-Dimer ABG pH ABG pO2 ABG HCO3 ABG O2 Saturation ABG Base Excess ABG Hemoglobin Sodium Potassium Chloride BUN Creatinine Glucose POC Glucose 51 L 57 L 50 L Lactic Acid Calcium Phosphorus Magnesium Ferritin ALT Ammonia Lactate Dehydrogenase Troponin T C-Reactive Protein NT-Pro-B Natriuret Pep Total Protein Albumin TSH Coronavirus (PCR) Crossmatch 08/19/21 08/19/21 08/19/21 19:15 21:42 23:29 WBC RBC Hgb Hct RDW Lymph % (Auto) Seg Neutrophils % Seg Neuts % (Manual) Lymphocytes % (Manual) Seg Neutrophils # Seg Neutrophils # Man Lymphocytes # (Manual) PT D-Dimer ABG pH ABG pO2 ABG HCO3 ABG O2 Saturation ABG Base Excess ABG Hemoglobin Sodium Potassium Chloride BUN Creatinine Glucose 26 L* POC Glucose 57 L 42 L Lactic Acid Calcium Phosphorus Magnesium Ferritin ALT Ammonia Lactate Dehydrogenase Troponin T C-Reactive Protein NT-Pro-B Natriuret Pep Total Protein Albumin TSH Coronavirus (PCR) Crossmatch 08/19/21 08/19/21 08/20/21 Unknown Unknown 00:37 WBC RBC Hgb Hct RDW Lymph % (Auto) Seg Neutrophils % Seg Neuts % (Manual) Lymphocytes % (Manual) Seg Neutrophils # Seg Neutrophils # Man Lymphocytes # (Manual) PT D-Dimer ABG pH 7.499 H ABG pO2 239.2 H ABG HCO3 27.6 H ABG O2 Saturation 99.4 H ABG Base Excess 4.3 H ABG Hemoglobin 11.3 L Sodium Potassium Chloride BUN Creatinine Glucose POC Glucose 50 L Lactic Acid Calcium Phosphorus Magnesium Ferritin ALT Ammonia Lactate Dehydrogenase Troponin T C-Reactive Protein NT-Pro-B Natriuret Pep Total Protein Albumin TSH Coronavirus (PCR) Positive A Crossmatch 08/20/21 08/20/21 08/20/21 01:41 02:35 03:41 WBC RBC Hgb Hct RDW Lymph % (Auto) Seg Neutrophils % Seg Neuts % (Manual) Lymphocytes % (Manual) Seg Neutrophils # Seg Neutrophils # Man Lymphocytes # (Manual) PT D-Dimer ABG pH ABG pO2 ABG HCO3 ABG O2 Saturation ABG Base Excess ABG Hemoglobin Sodium Potassium Chloride BUN Creatinine Glucose POC Glucose 54 L 40 L 13 L Lactic Acid Calcium Phosphorus Magnesium Ferritin ALT Ammonia Lactate Dehydrogenase Troponin T C-Reactive Protein NT-Pro-B Natriuret Pep Total Protein Albumin TSH Coronavirus (PCR) Crossmatch 08/20/21 08/20/21 08/20/21 04:15 04:15 04:15 WBC 14.6 H RBC Hgb Hct RDW 20.7 H Lymph % (Auto) 9.9 L Seg Neutrophils % 82.4 H Seg Neuts % (Manual) Lymphocytes % (Manual) Seg Neutrophils # 12.0 H Seg Neutrophils # Man Lymphocytes # (Manual) PT D-Dimer ABG pH ABG pO2 ABG HCO3 ABG O2 Saturation ABG Base Excess ABG Hemoglobin Sodium 132 L Potassium Chloride 93.8 L BUN Creatinine 2.7 H Glucose 52 L POC Glucose Lactic Acid 3.40 H* Calcium 7.1 L Phosphorus Magnesium Ferritin ALT Ammonia Lactate Dehydrogenase Troponin T C-Reactive Protein NT-Pro-B Natriuret Pep Total Protein 4.9 L Albumin 2.6 L TSH Coronavirus (PCR) Crossmatch 08/20/21 08/20/21 08/20/21 05:28 06:33 07:37 WBC RBC Hgb Hct RDW Lymph % (Auto) Seg Neutrophils % Seg Neuts % (Manual) Lymphocytes % (Manual) Seg Neutrophils # Seg Neutrophils # Man Lymphocytes # (Manual) PT D-Dimer ABG pH ABG pO2 ABG HCO3 ABG O2 Saturation ABG Base Excess ABG Hemoglobin Sodium Potassium Chloride BUN Creatinine Glucose POC Glucose 51 L 67 L 59 L Lactic Acid Calcium Phosphorus Magnesium Ferritin ALT Ammonia Lactate Dehydrogenase Troponin T C-Reactive Protein NT-Pro-B Natriuret Pep Total Protein Albumin TSH Coronavirus (PCR) Crossmatch 08/20/21 08/20/21 08/20/21 11:55 12:31 13:37 WBC RBC Hgb Hct RDW Lymph % (Auto) Seg Neutrophils % Seg Neuts % (Manual) Lymphocytes % (Manual) Seg Neutrophils # Seg Neutrophils # Man Lymphocytes # (Manual) PT D-Dimer ABG pH 7.526 H ABG pO2 166.8 H ABG HCO3 ABG O2 Saturation 99.1 H ABG Base Excess ABG Hemoglobin 8.7 L Sodium Potassium Chloride BUN Creatinine Glucose POC Glucose 152 H 150 H Lactic Acid Calcium Phosphorus Magnesium Ferritin ALT Ammonia Lactate Dehydrogenase Troponin T C-Reactive Protein NT-Pro-B Natriuret Pep Total Protein Albumin TSH Coronavirus (PCR) Crossmatch 08/20/21 08/20/21 08/20/21 15:47 17:53 23:19 WBC RBC Hgb Hct RDW Lymph % (Auto) Seg Neutrophils % Seg Neuts % (Manual) Lymphocytes % (Manual) Seg Neutrophils # Seg Neutrophils # Man Lymphocytes # (Manual) PT D-Dimer ABG pH ABG pO2 ABG HCO3 ABG O2 Saturation ABG Base Excess ABG Hemoglobin Sodium Potassium Chloride BUN Creatinine Glucose POC Glucose 204 H 223 H 217 H Lactic Acid Calcium Phosphorus Magnesium Ferritin ALT Ammonia Lactate Dehydrogenase Troponin T C-Reactive Protein NT-Pro-B Natriuret Pep Total Protein Albumin TSH Coronavirus (PCR) Crossmatch 08/21/21 08/21/21 08/21/21 04:46 04:46 04:46 WBC 23.9 H RBC 2.55 L Hgb 7.8 L D Hct 23.6 L D RDW 20.2 H Lymph % (Auto) Seg Neutrophils % Seg Neuts % (Manual) 97.0 H Lymphocytes % (Manual) 1.0 L Seg Neutrophils # Seg Neutrophils # Man 23.2 H Lymphocytes # (Manual) 0.2 L PT D-Dimer ABG pH ABG pO2 ABG HCO3 ABG O2 Saturation ABG Base Excess ABG Hemoglobin Sodium 122 L D Potassium Chloride 87.0 L BUN 23 H Creatinine 3.8 H Glucose 166 H POC Glucose Lactic Acid Calcium 6.8 L Phosphorus 1.60 L Magnesium 1.60 L Ferritin 1787.0 H ALT Ammonia Lactate Dehydrogenase Troponin T C-Reactive Protein 10.60 H NT-Pro-B Natriuret Pep Total Protein Albumin TSH Coronavirus (PCR) Crossmatch 08/21/21 08/21/21 08/21/21 05:11 08:18 11:10 WBC RBC Hgb Hct RDW Lymph % (Auto) Seg Neutrophils % Seg Neuts % (Manual) Lymphocytes % (Manual) Seg Neutrophils # Seg Neutrophils # Man Lymphocytes # (Manual) PT D-Dimer ABG pH 7.495 H ABG pO2 141.5 H ABG HCO3 26.2 H ABG O2 Saturation ABG Base Excess ABG Hemoglobin 7.9 L Sodium Potassium Chloride BUN Creatinine Glucose POC Glucose 151 H 141 H Lactic Acid Calcium Phosphorus Magnesium Ferritin ALT Ammonia Lactate Dehydrogenase Troponin T C-Reactive Protein NT-Pro-B Natriuret Pep Total Protein Albumin TSH Coronavirus (PCR) Crossmatch 08/21/21 08/21/21 08/21/21 14:42 16:43 23:34 WBC RBC Hgb Hct RDW Lymph % (Auto) Seg Neutrophils % Seg Neuts % (Manual) Lymphocytes % (Manual) Seg Neutrophils # Seg Neutrophils # Man Lymphocytes # (Manual) PT D-Dimer ABG pH ABG pO2 ABG HCO3 ABG O2 Saturation ABG Base Excess ABG Hemoglobin Sodium 121 L Potassium 5.2 H Chloride 88.1 L BUN 28 H Creatinine 3.9 H Glucose 130 H POC Glucose 113 H 171 H Lactic Acid Calcium 6.7 L Phosphorus Magnesium 2.80 H Ferritin ALT Ammonia Lactate Dehydrogenase Troponin T C-Reactive Protein NT-Pro-B Natriuret Pep Total Protein Albumin TSH Coronavirus (PCR) Crossmatch 08/22/21 08/22/21 08/22/21 05:09 05:09 05:40 WBC 25.0 H RBC 2.55 L Hgb 7.8 L Hct 23.5 L RDW 21.1 H Lymph % (Auto) Seg Neutrophils % Seg Neuts % (Manual) Lymphocytes % (Manual) Seg Neutrophils # Seg Neutrophils # Man Lymphocytes # (Manual) PT D-Dimer ABG pH 7.513 H ABG pO2 ABG HCO3 ABG O2 Saturation ABG Base Excess ABG Hemoglobin 8.6 L Sodium 135 L D Potassium Chloride BUN 20 H Creatinine 2.9 H Glucose POC Glucose Lactic Acid Calcium 7.6 L Phosphorus 1.40 L D Magnesium Ferritin ALT Ammonia Lactate Dehydrogenase Troponin T C-Reactive Protein NT-Pro-B Natriuret Pep Total Protein Albumin TSH Coronavirus (PCR) Crossmatch 08/22/21 08/22/21 08/22/21 11:37 12:09 17:16 WBC RBC Hgb Hct RDW Lymph % (Auto) Seg Neutrophils % Seg Neuts % (Manual) Lymphocytes % (Manual) Seg Neutrophils # Seg Neutrophils # Man Lymphocytes # (Manual) PT D-Dimer ABG pH ABG pO2 ABG HCO3 ABG O2 Saturation ABG Base Excess ABG Hemoglobin Sodium Potassium Chloride BUN Creatinine Glucose POC Glucose 122 H 121 H 120 H Lactic Acid Calcium Phosphorus Magnesium Ferritin ALT Ammonia Lactate Dehydrogenase Troponin T C-Reactive Protein NT-Pro-B Natriuret Pep Total Protein Albumin TSH Coronavirus (PCR) Crossmatch 08/22/21 08/23/21 08/23/21 23:49 04:00 04:00 WBC 19.0 H RBC 2.41 L Hgb 7.2 L Hct 22.4 L RDW 22.1 H Lymph % (Auto) Seg Neutrophils % Seg Neuts % (Manual) Lymphocytes % (Manual) Seg Neutrophils # Seg Neutrophils # Man Lymphocytes # (Manual) PT D-Dimer ABG pH ABG pO2 ABG HCO3 ABG O2 Saturation ABG Base Excess ABG Hemoglobin Sodium Potassium Chloride BUN 32 H Creatinine 3.7 H Glucose 109 H POC Glucose 114 H Lactic Acid Calcium 6.8 L Phosphorus 4.70 H D Magnesium Ferritin ALT Ammonia Lactate Dehydrogenase Troponin T C-Reactive Protein NT-Pro-B Natriuret Pep Total Protein Albumin TSH Coronavirus (PCR) Crossmatch 08/23/21 08/23/21 08/23/21 04:54 05:40 11:10 WBC RBC Hgb Hct RDW Lymph % (Auto) Seg Neutrophils % Seg Neuts % (Manual) Lymphocytes % (Manual) Seg Neutrophils # Seg Neutrophils # Man Lymphocytes # (Manual) PT D-Dimer ABG pH 7.475 H ABG pO2 111.8 H ABG HCO3 26.1 H ABG O2 Saturation ABG Base Excess ABG Hemoglobin 7.5 L Sodium Potassium Chloride BUN Creatinine Glucose POC Glucose 108 H 107 H Lactic Acid Calcium Phosphorus Magnesium Ferritin ALT Ammonia Lactate Dehydrogenase Troponin T C-Reactive Protein NT-Pro-B Natriuret Pep Total Protein Albumin TSH Coronavirus (PCR) Crossmatch 08/23/21 08/23/21 08/24/21 16:07 23:52 04:00 WBC 15.5 H RBC 2.22 L Hgb 6.9 L Hct 20.8 L RDW 22.2 H Lymph % (Auto) Seg Neutrophils % Seg Neuts % (Manual) Lymphocytes % (Manual) Seg Neutrophils # Seg Neutrophils # Man Lymphocytes # (Manual) PT D-Dimer ABG pH ABG pO2 ABG HCO3 ABG O2 Saturation ABG Base Excess ABG Hemoglobin Sodium Potassium Chloride BUN Creatinine Glucose POC Glucose 132 H 138 H Lactic Acid Calcium Phosphorus Magnesium Ferritin ALT Ammonia Lactate Dehydrogenase Troponin T C-Reactive Protein NT-Pro-B Natriuret Pep Total Protein Albumin TSH Coronavirus (PCR) Crossmatch 08/24/21 08/24/21 08/24/21 04:00 06:00 06:41 WBC RBC Hgb Hct RDW Lymph % (Auto) Seg Neutrophils % Seg Neuts % (Manual) Lymphocytes % (Manual) Seg Neutrophils # Seg Neutrophils # Man Lymphocytes # (Manual) PT D-Dimer ABG pH 7.491 H ABG pO2 105.3 H ABG HCO3 ABG O2 Saturation ABG Base Excess ABG Hemoglobin 7.0 L Sodium 136 L Potassium Chloride BUN 43 H Creatinine 4.1 H Glucose 104 H POC Glucose Lactic Acid Calcium 6.9 L Phosphorus Magnesium Ferritin ALT Ammonia Lactate Dehydrogenase Troponin T C-Reactive Protein NT-Pro-B Natriuret Pep Total Protein Albumin TSH Coronavirus (PCR) Crossmatch See Detail 08/24/21 08/24/21 08/24/21 12:06 18:46 23:32 WBC RBC Hgb Hct RDW Lymph % (Auto) Seg Neutrophils % Seg Neuts % (Manual) Lymphocytes % (Manual) Seg Neutrophils # Seg Neutrophils # Man Lymphocytes # (Manual) PT D-Dimer ABG pH ABG pO2 ABG HCO3 ABG O2 Saturation ABG Base Excess ABG Hemoglobin Sodium Potassium Chloride BUN Creatinine Glucose POC Glucose 135 H 133 H 131 H Lactic Acid Calcium Phosphorus Magnesium Ferritin ALT Ammonia Lactate Dehydrogenase Troponin T C-Reactive Protein NT-Pro-B Natriuret Pep Total Protein Albumin TSH Coronavirus (PCR) Crossmatch 08/25/21 08/25/21 08/25/21 04:12 04:12 05:34 WBC 12.8 H RBC 2.97 L Hgb 9.1 L Hct 26.8 L D RDW 19.8 H Lymph % (Auto) Seg Neutrophils % Seg Neuts % (Manual) Lymphocytes % (Manual) Seg Neutrophils # Seg Neutrophils # Man Lymphocytes # (Manual) PT D-Dimer ABG pH ABG pO2 ABG HCO3 ABG O2 Saturation ABG Base Excess ABG Hemoglobin Sodium Potassium Chloride BUN 25 H Creatinine 2.9 H Glucose 123 H POC Glucose 117 H Lactic Acid Calcium 7.8 L Phosphorus Magnesium Ferritin ALT Ammonia Lactate Dehydrogenase Troponin T C-Reactive Protein NT-Pro-B Natriuret Pep Total Protein Albumin TSH Coronavirus (PCR) Crossmatch 08/25/21 08/25/21 08/25/21 10:30 12:19 16:39 WBC RBC Hgb Hct RDW Lymph % (Auto) Seg Neutrophils % Seg Neuts % (Manual) Lymphocytes % (Manual) Seg Neutrophils # Seg Neutrophils # Man Lymphocytes # (Manual) PT D-Dimer ABG pH 7.453 H ABG pO2 98.5 H ABG HCO3 29.2 H ABG O2 Saturation ABG Base Excess 4.8 H ABG Hemoglobin 11.2 L Sodium Potassium Chloride BUN Creatinine Glucose POC Glucose 128 H 124 H Lactic Acid Calcium Phosphorus Magnesium Ferritin ALT Ammonia Lactate Dehydrogenase Troponin T C-Reactive Protein NT-Pro-B Natriuret Pep Total Protein Albumin TSH Coronavirus (PCR) Crossmatch 08/25/21 08/26/21 08/26/21 23:44 04:31 04:31 WBC RBC 2.92 L Hgb 9.0 L Hct 26.5 L RDW 20.5 H Lymph % (Auto) Seg Neutrophils % Seg Neuts % (Manual) Lymphocytes % (Manual) Seg Neutrophils # Seg Neutrophils # Man Lymphocytes # (Manual) PT D-Dimer ABG pH ABG pO2 ABG HCO3 ABG O2 Saturation ABG Base Excess ABG Hemoglobin Sodium Potassium Chloride BUN 39 H Creatinine 3.2 H Glucose 119 H POC Glucose 134 H Lactic Acid Calcium 7.9 L Phosphorus Magnesium Ferritin ALT Ammonia Lactate Dehydrogenase 194 H Troponin T C-Reactive Protein 9.10 H NT-Pro-B Natriuret Pep Total Protein Albumin TSH Coronavirus (PCR) Crossmatch 08/26/21 08/26/21 08/26/21 04:31 04:31 05:24 WBC RBC Hgb Hct RDW Lymph % (Auto) Seg Neutrophils % Seg Neuts % (Manual) Lymphocytes % (Manual) Seg Neutrophils # Seg Neutrophils # Man Lymphocytes # (Manual) PT D-Dimer 2539.68 H ABG pH ABG pO2 ABG HCO3 ABG O2 Saturation ABG Base Excess ABG Hemoglobin Sodium Potassium Chloride BUN Creatinine Glucose POC Glucose 114 H Lactic Acid Calcium Phosphorus Magnesium Ferritin > 2000.0 H ALT Ammonia Lactate Dehydrogenase Troponin T C-Reactive Protein NT-Pro-B Natriuret Pep Total Protein Albumin TSH Coronavirus (PCR) Crossmatch Allied health notes reviewed: nursing
--- NOTE | 2021-08-26 17:03 | Progress Note ---
Assessment and Plan Assessment and plan: This is a 86-year-old female with HTN, DM, ESRD on HD, recent hospitalization Covid pneumonia admitted with severe hypoglycemia and acute hypoxic respiratory failure requiring ventilatory support Neuro: Acute metabolic encephalopathy -Likely related to severe hypoglycemia -CT head with no acute findings, remote lacunar infarct, generalized atrophy and microvascular ischemia -Continue home Remeron -Avoid delirium -Maintain sleep-wake cycle Cardio: NSTEMI, h/o CHF with preserved EF, hypertension -Cardiology consulted, appreciate recommendations -Echocardiogram shows EF of 40 to 45% -Continue home amlodipine and clonidine -Blood pressure monitor per protocol -Per cardiology due to decrease in EF will consider outpatient ischemic evaluation when patient is clinically stable -Per cardiology: -Echo 08/19/2021-EF 40 to 45%. Mild concentric LVH. Doppler flow pattern suggests impaired LV relaxation. Right ventricular systolic function is normal. Echo bright density suspected in the right atrium. Moderate aortic stenosis. Highest mean aortic valve gradient is 21.6 mmHg. Mild aortic regurgitation. Mitral valve leaflets are thickened. Mitral valve leaflets are calcified. Moderate mitral regurgitation - Echo03/2020 -Moderate concentric left ventricular hypertrophy.Left ventricular ejection fraction is 60-65%. There is moderately increased filling pressure consistent with grade 2 diastolic dysfunction. Aortic valve is tricusp id, sclerotic and focally calcified. Mild aortic stenosis. Mild to moderate aortic valve insufficiency. The left ventricular size is small. The aortic valve max velocity is 2.57 m/s. The peak gradient is 26.4 mmHg with a mean gradient of 16.0 mmHg, the left ventricle outflow tract measures 2.00 cm. CORNELIA (VTI) is 1.08 cm. Mild mitral valve regurgitation.Normal right ventricular size and wall t hickness. There is small pleural effusion in the left lateral region. There is small pleural effusion in the right lateral region.No pericardial effusion seen. -Lexiscan MPI stress test 05/14/2019-normal myocardial perfusion without evidence of ischemia or prior infarction Respiratory: Acute hypoxic respiratory failure -Intubated in the emergency department for airway protection on 08/19 with a 7.00 ETT and extubated 08/25 -CCM consulted, appreciate recommendations -Pulmonary hygiene -SPO2 monitoring GI: Severe protein calorie malnutrition -Nutrition consult for tube feeding -BR: Senokot -PPI -24 hours + 972 mL -BM 08/24 - : ESRD on HD, hyponatremia -Nephrology consulted, appreciate recommendations -Hemodialysis per nephrology (MWF or as needed) -Strict intake and output -Avoid nephrotoxic medications -Renally dose medication -Monitor and replace electrolytes as needed -Restart active vitamin D analog -Trend BMP ID: Sepsis, COVID-19 pneumonia, ? HCAP -COVID-19 PCR positive -Infectious disease consulted, appreciate recommendations -Contact/droplet precautions -Not a candidate for remdesivir due to ESRD -Per ID: Given worsening leukocytosis not a candidate for Actemra -IV antibiotic therapy: Meropenem, renally dose vancomycin -Trend COVID-19 inflammatory markers -CRP 10.6 Heme: Anemia of chronic disease, leukocytosis -Epogen per nephrology -Trend CBC -Transfuse hemoglobin less than 7 -S/p 1 unit PRBC -SCD to bilateral lower extremity while in bed -Subcu heparin Endo: Severe hypoglycemia -S/p D10 drip -Avoid hypoglycemia -Accu-Cheks every 6 The high probability of a clinically significant, sudden or life threatening deterioration of the [multiple] system(s) required my full and direct attention, intervention and personal management. The aggregate critical care time was [60] minutes. This time is in addition to time spent performing reported procedures but includes the following: [x] Data Review and interpretation [x] Patient assessment and monitoring of vital signs [x] Documentation [x] Medication orders and management Disposition Plan: icu Total Time Spent with Patient (Minutes): 60 History Interval history: This is a 86-year-old female with DM, ESRD on HD, HTN, recent diagnosis of COVID-19 who presented to emergency department on 08/19 via EMS with hypoglycemia after being found unresponsive by the family and on scene her blood glucose was less than 20 and received D10 with EMS with improvement of blood glucose but remained unresponsive upon arrival to the emergency department. Patient was int ubated for airway protection in the ED and lab work showed blood sugar of 599 for which she received insulin and recurrent blood sugar check was less than 10. Patient was admitted to the hospitalist service with acute hypoxic respiratory failure, acute metabolic encephalopathy, hypoglycemia, sepsis due to possible aspiration, hypomagnesemia, severe protein calorie malnutrition with consults to CCM, ID and nephrology. Of note and recent admission to the hospital patient was noted to have decreased p.o. intake and seems family continued home antidiabetic regimen despite decreased p.o. intake. Hospital Course to Date: 2/17: Off sedation this am, open eyes spontaneously but does not follow any commands. Patient remains hypoglycemic throught the night despite D10W gtt and TF at goal. TF is now on hold this am due to vomiting. Reglan was initiated Q8hrs, X1 dose of IV steroids, and continue D10w and Q1hr BG check for now. Midodrine was also added TID for hypotension. Possible PST today once more awake, plan to start weaning vent for possible extubation. 08/21: Patient remains on thevent, mentation is unchanged, off sedation. BG improved, no more vomiting, patient is tolerating TF. On SSI Q6hrs, low NA this am, will switch D10w to NS at 50cc,a and mag and phosp repleted. Possible HD today per Nephro. BP also improved, continue midodrine TID. Family conference call today with the attending. Patient's condition and overall poor prognosis were thoroughly discussed with patient's family. They want to keep patient as a FULL code status and leaning towards Trach and PEG. D/w CCM, will continue to monitor patient's mental status over the weekend. If no improvement by tuesday, plan to consult General Surgery for possible trach and PEG tube placement. 08/22: Patient appears a lot more awake this am, however, still not following commands. BG remains stable, still tolerating TF. Patient is now hypertensive, will hold midodrine for now. Tolerated HD overnight. Electrolytes replaced, repeat lab in the am 08/23: Awake and following simple commands this am. Possible PST today, plan to wean for possible extubation. Hypertensive this am, home norvasc resumed. Patient is tolerating TF at goal and BG remains stable 08/24: Patient was restarted on home Coreg due to hypotension, received hemodialysis today and D10 drip discontinued. 08/25: Patient tolerating CPAP trial today, responded appropriately to PRBC. Patient extubated today. Leukocytosis is improving 08/26: Patient scheduled for HD today, will be transferred to the floor today. Hospitalist Physical - Constitutional Vitals: Temp Pulse Resp BP Pulse Ox 97.8 F 99 H 15 145/53 99 08/26/21 16:29 08/26/21 16:00 08/26/21 16:00 08/26/21 16:00 08/26/21 16:00 General appearance: Present: no acute distress, other (Intubated) - EENT Eyes: Present: PERRL, EOM intact - Neck Neck: Present: normal ROM - Respiratory Respiratory effort: normal Respiratory: bilateral: diminished - Cardiovascular Rhythm: regular Heart Sounds: Present: S1 & S2, systolic murmur, diastolic murmur - Extremities Extremities: no ischemia, pulses intact, pulses symmetrical, No edema, normal temperature, normal color Peripheral Pulses: within normal limits - Abdominal General gastrointestinal: soft, non-tender, non-distended, normal bowel sounds - Integumentary Integumentary: Present: warm, dry - Psychiatric Psychiatric: cooperative - Neurologic Neurologic: CNII-XII intact, moves all extremities - Allied Health Allied health notes reviewed: nursing, RT, social work HEART Score - HEART Score Troponin: Troponin T 0.042 ng/mL (0.00-0.029) H 08/19/21 04:53 Results - Labs CBC & Chem 7: 08/26/21 04:31 08/26/21 04:31 Labs: Laboratory Last Values WBC 9.8 K/mm3 (4.5-11.0) 08/26/21 04:31 RBC 2.92 M/mm3 (3.65-5.03) L 08/26/21 04:31 Hgb 9.0 gm/dl (10.1-14.3) L 08/26/21 04:31 Hct 26.5 % (30.3-42.9) L 08/26/21 04:31 MCV 91 fl (79-97) 08/26/21 04:31 MCH 31 pg (28-32) 08/26/21 04:31 MCHC 34 % (30-34) 08/26/21 04:31 RDW 20.5 % (13.2-15.2) H 08/26/21 04:31 Plt Count 321 K/mm3 (140-440) 08/26/21 04:31 Lymph % (Auto) 9.9 % (13.4-35.0) L 08/20/21 04:15 [place] % (Auto) 4.5 % (0.0-7.3) 08/20/21 04:15 Eos % (Auto) 2.8 % (0.0-4.3) 08/20/21 04:15 Baso % (Auto) 0.4 % (0.0-1.8) 08/20/21 04:15 Lymph # (Auto) 1.4 K/mm3 (1.2-5.4) 08/20/21 04:15 [place] # (Auto) 0.7 K/mm3 (0.0-0.8) 08/20/21 04:15 Eos # (Auto) 0.4 K/mm3 (0.0-0.4) 08/20/21 04:15 Baso # (Auto) 0.1 K/mm3 (0.0-0.1) 08/20/21 04:15 Add Manual Diff Complete 08/21/21 04:46 Total Counted 100 08/21/21 04:46 Seg Neutrophils % Poultry Buyer 08/21/21 04:46 Seg Neuts % (Manual) 97.0 % (40.0-70.0) H 08/21/21 04:46 Band Neutrophils % 0 % 08/21/21 04:46 Lymphocytes % (Manual) 1.0 % (13.4-35.0) L 08/21/21 04:46 Reactive Lymphs % (Man) 0 % 08/21/21 04:46 Monocytes % (Manual) 2.0 % (0.0-7.3) 08/21/21 04:46 Eosinophils % (Manual) 0 % (0.0-4.3) 08/21/21 04:46 Basophils % (Manual) 0 % (0.0-1.8) 08/21/21 04:46 Metamyelocytes % 0 % 08/21/21 04:46 Myelocytes % 0 % 08/21/21 04:46 Promyelocytes % 0 % 08/21/21 04:46 Blast Cells % 0 % 08/21/21 04:46 Nucleated RBC % Not Reportable 08/21/21 04:46 Seg Neutrophils # 12.0 K/mm3 (1.8-7.7) H 08/20/21 04:15 Seg Neutrophils # Man 23.2 K/mm3 (1.8-7.7) H 08/21/21 04:46 Band Neutrophils # 0.0 K/mm3 08/21/21 04:46 Lymphocytes # (Manual) 0.2 K/mm3 (1.2-5.4) L 08/21/21 04:46 Abs React Lymphs (Man) 0.0 K/mm3 08/21/21 04:46 Monocytes # (Manual) 0.5 K/mm3 (0.0-0.8) 08/21/21 04:46 Eosinophils # (Manual) 0.0 K/mm3 (0.0-0.4) 08/21/21 04:46 Basophils # (Manual) 0.0 K/mm3 (0.0-0.1) 08/21/21 04:46 Metamyelocytes # 0.0 K/mm3 08/21/21 04:46 Myelocytes # 0.0 K/mm3 08/21/21 04:46 Promyelocytes # 0.0 K/mm3 08/21/21 04:46 Blast Cells # 0.0 K/mm3 08/21/21 04:46 WBC Morphology Not Reportable 08/21/21 04:46 Hypersegmented Neuts Not Reportable 08/21/21 04:46 Hyposegmented Neuts Not Reportable 08/21/21 04:46 Hypogranular Neuts Not Reportable 08/21/21 04:46 Smudge Cells Not Reportable 08/21/21 04:46 Toxic Granulation Not Reportable 08/21/21 04:46 Toxic Vacuolation Not Reportable 08/21/21 04:46 Dohle Bodies Not Reportable 08/21/21 04:46 Pelger-Huet Anomaly Not Reportable 08/21/21 04:46 Dhara Rods Not Reportable 08/21/21 04:46 Platelet Estimate Consistent w auto 08/21/21 04:46 Clumped Platelets Not Reportable 08/21/21 04:46 Plt Clumps, EDTA Not Reportable 08/21/21 04:46 Large Platelets Not Reportable 08/21/21 04:46 Giant Platelets Not Reportable 08/21/21 04:46 Platelet Satelliting Not Reportable 08/21/21 04:46 Plt Morphology Comment Not Reportable 08/21/21 04:46 RBC Morphology Not Reportable 08/21/21 04:46 Dimorphic RBCs Not Reportable 08/21/21 04:46 Polychromasia Few 08/21/21 04:46 Hypochromasia 1+ 08/21/21 04:46 Poikilocytosis Not Reportable 08/21/21 04:46 Anisocytosis 1+ 08/21/21 04:46 Microcytosis Not Reportable 08/21/21 04:46 Macrocytosis Not Reportable 08/21/21 04:46 Spherocytes Not Reportable 08/21/21 04:46 Pappenheimer Bodies Not Reportable 08/21/21 04:46 Sickle Cells Not Reportable 08/21/21 04:46 Target Cells Not Reportable 08/21/21 04:46 Tear Drop Cells Not Reportable 08/21/21 04:46 Ovalocytes Not Reportable 08/21/21 04:46 Helmet Cells Not Reportable 08/21/21 04:46 Leyva-Vandergrift Bodies Not Reportable 08/21/21 04:46 Rossiter Rings Not Reportable 08/21/21 04:46 Korina Cells Not Reportable 08/21/21 04:46 Bite Cells Not Reportable 08/21/21 04:46 Crenated Cell Not Reportable 08/21/21 04:46 Elliptocytes Not Reportable 08/21/21 04:46 Acanthocytes (Spur) Not Reportable 08/21/21 04:46 Rouleaux Not Reportable 08/21/21 04:46 Hemoglobin C Crystals Not Reportable 08/21/21 04:46 Schistocytes Not Reportable 08/21/21 04:46 Malaria parasites Not Reportable 08/21/21 04:46 Keshav Bodies Not Reportable 08/21/21 04:46 Hem Pathologist Commnt No 08/21/21 04:46 PT 15.6 Sec. (12.2-14.9) H 08/19/21 04:53 INR 1.12 (0.87-1.13) 08/19/21 04:53 APTT 30.3 Sec. (24.2-36.6) 08/19/21 04:53 D-Dimer 2539.68 ng/mlDDU (0-234) H 08/26/21 04:31 ABG pH 7.453 pH Units (7.350-7.450) H 08/25/21 10:30 ABG pCO2 42.8 mm Hg 08/25/21 10:30 ABG pO2 98.5 mm Hg (80.0-90.0) H 08/25/21 10:30 ABG HCO3 29.2 mmol/L (20.0-26.0) H 08/25/21 10:30 ABG O2 Saturation 97.6 % (95.0-99.0) 08/25/21 10:30 ABG O2 Content 15.1 (0.0-44) 08/25/21 10:30 ABG Base Excess 4.8 mmol/L (-2.0-3.0) H 08/25/21 10:30 ABG Hemoglobin 11.2 gm/dl (12.0-16.0) L 08/25/21 10:30 ABG Carboxyhemoglobin 1.6 % (0.0-5.0) 08/25/21 10:30 ABG Methemoglobin 0.5 % (0.0-1.5) 08/25/21 10:30 Oxyhemoglobin 95.5 % (95.0-99.0) 08/25/21 10:30 FiO2 30 % 08/25/21 10:30 Sodium 139 mmol/L (137-145) 08/26/21 04:31 Potassium 4.1 mmol/L (3.6-5.0) 08/26/21 04:31 Chloride 101.2 mmol/L (98-107) 08/26/21 04:31 Carbon Dioxide 26 mmol/L (22-30) 08/26/21 04:31 Anion Gap 16 mmol/L 08/26/21 04:31 BUN 39 mg/dL (7-17) H 08/26/21 04:31 Creatinine 3.2 mg/dL (0.6-1.2) H 08/26/21 04:31 Estimated GFR 14 ml/min 08/26/21 04:31 BUN/Creatinine Ratio 12 % 08/26/21 04:31 Glucose 119 mg/dL (65-100) H 08/26/21 04:31 POC Glucose 157 mg/dL (70-105) H 08/26/21 16:01 Lactic Acid 3.40 mmol/L (0.7-2.0) H* 08/20/21 04:15 Calcium 7.9 mg/dL (8.4-10.2) L 08/26/21 04:31 Phosphorus 2.80 mg/dL (2.5-4.5) 08/26/21 04:31 Magnesium 2.20 mg/dL (1.7-2.3) 08/26/21 04:31 Ferritin > 2000.0 ng/mL (10.0-200.0) H 08/26/21 04:31 Total Bilirubin 0.30 mg/dL (0.1-1.2) 08/20/21 04:15 AST 17 units/L (5-40) 08/20/21 04:15 ALT 7 units/L (7-56) 08/20/21 04:15 Alkaline Phosphatase 85 units/L (35-129) 08/20/21 04:15 Ammonia 10.0 umol/L (25-60) L 08/19/21 04:53 Lactate Dehydrogenase 194 units/L (91-180) H 08/26/21 04:31 Total Creatine Kinase 105 units/L (30-135) 08/19/21 04:53 CK-MB (CK-2) 1.1 ng/mL (0.0-4.0) 08/19/21 04:53 CK-MB (CK-2) Rel Index 1.0 (0-4) 08/19/21 04:53 Troponin T 0.042 ng/mL (0.00-0.029) H 08/19/21 04:53 C-Reactive Protein 9.10 mg/dL (0.00-1.30) H 08/26/21 04:31 NT-Pro-B Natriuret Pep 41427 pg/mL (0-900) H 08/19/21 06:01 Total Protein 4.9 g/dL (6.3-8.2) L 08/20/21 04:15 Albumin 2.6 g/dL (3.9-5) L 08/20/21 04:15 Albumin/Globulin Ratio 1.1 % 08/20/21 04:15 Triglycerides 122 mg/dL (2-149) 08/19/21 04:53 Cholesterol 160 mg/dL (50-199) 08/19/21 04:53 LDL Cholesterol Direct 88 mg/dL (50-130) 08/19/21 04:53 HDL Cholesterol 47 mg/dL (40-59) 08/19/21 04:53 Cholesterol/HDL Ratio 3.40 % 08/19/21 04:53 TSH 4.850 mlU/mL (0.270-4.200) H 08/19/21 08:30 Random Vancomycin 13.9 ug/mL (0-40.0) 08/26/21 04:31 Coronavirus (PCR) Positive (Negative) A 08/19/21 Unknown Blood Type O POSITIVE 08/24/21 06:41 Antibody Screen Negative 08/24/21 06:41 Crossmatch See Detail 08/24/21 06:41 [place]/IV: Voiding Method Incontinent Active Medications - Current Medications Current Medications: Generic Name Dose Route Start Last Admin Trade Name Freq PRN Reason Stop Dose Admin Acetaminophen 650 mg 08/19/21 10:00 Acetaminophen 325 Mg Tab PO Q6H PRN Pain MILD(1-3)/Fever >100.5/MEHTA Albuterol 2.5 mg 08/19/21 11:00 Albuterol 2.5 Mg/3 Ml Nebu IH Q3HRT PRN Shortness Of Breath Amlodipine Besylate 10 mg 08/23/21 10:00 08/26/21 10:02 Amlodipine 10 Mg Tab PO 10 mg QDAY ANAHY Administration Budesonide 0.5 mg 08/19/21 20:00 08/26/21 09:24 Budesonide 0.5 Mg/2 Ml Nebu IH 0.5 mg Q12HRT ANAHY Administration Clonidine HCl 0.1 mg 08/24/21 10:00 08/26/21 10:02 Clonidine 0.1 Mg Tab PO 0.1 mg BID ANAHY Administration Dextrose 0 ml 08/19/21 09:30 08/20/21 11:28 Dextrose 10% *Hypoglycemia IV 50 ml PRN PRN Administration Hypoglycemia Famotidine 20 mg 08/19/21 10:00 08/26/21 10:02 Famotidine 20 Mg Tab PO 20 mg QAM ANAHY Administration Heparin Sodium (Porcine) 5,000 unit 08/19/21 11:00 08/26/21 14:19 Heparin 5,000 Unit/1 Ml Vial SUB-Q 5,000 unit Q8HR ANAHY Administration Meropenem/Sodium Chloride 1 gram in 100 mls @ 100 mls/hr 08/21/21 18:00 08/25/21 17:57 Merrem/Ns 1 Gram/100 Ml IV 08/28/21 18:59 100 mls/hr QPM ANAHY Administration Protocol Sodium Chloride 100 mls @ 999 mls/hr 08/24/21 10:50 Nacl 0.9% IV LEVI PRN Hypotension Insulin Human Lispro 0 unit 08/19/21 12:00 08/26/21 11:39 Insulin Lispro 100 Unit/Ml SUB-Q Not Given Q6HR [facility] Protocol Labetalol HCl 10 mg 08/23/21 12:17 08/25/21 12:16 Labetalol 20 Mg/4 Ml Inj IV 10 mg Q4H PRN Administration Hypertension Mirtazapine 15 mg 08/20/21 10:02 Mirtazapine 15 Mg Tab PO QHS PRN Sleep Naloxone HCl 0.1 mg 08/19/21 09:30 Naloxone 0.4 Mg/1 Ml Inj IV Q2MIN PRN Res Rate </= 8 or 02 SAT < 92% Paricalcitol 2 mcg 08/24/21 10:50 08/24/21 17:56 Paricalcitol 2 Mcg/1 Ml Inj IV 2 mcg LEVI PRN Administration hemodialysis Senna 17.6 mg 08/20/21 22:00 08/25/21 22:23 Sennosides Oral Liqd 8.8 Mg/5 Ml Oral Liqd PO Not Given QHS ANAHY Simple Syrup 30 ml 08/19/21 17:44 08/20/21 03:48 Simple Syrup 15 Ml FEEDTUBE 30 ml PRN PRN Administration Hypoglycemia Sodium Chloride 10 ml 08/19/21 10:00 08/26/21 10:02 Sodium Chloride 0.9% 10 Ml Flush Syringe IV 10 ml BID ANAHY Administration Sodium Chloride 10 ml 08/19/21 09:30 Sodium Chloride 0.9% 10 Ml Flush Syringe IV PRN PRN LINE FLUSH Nutrition/Malnutrition Assess - Dietary Evaluation Nutrition/Malnutrition Findings: Nutrition Notes Start: 08/19/21 14:18 Freq: Status: Active Protocol: Document 08/22/21 17:21 MIGUEL ANGEL (Rec: 08/22/21 17:31 MIGUEL ANGEL [id number]) Nutrition Notes Initial or Follow up Brief Note Current Diet NPO. TF-Nepro w/CARBSTEADY @ 28 ml/hr (from D 08/19). Height 5 ft 2 in Weight 74.843 kg [place] Body Weight (kg) 50.00 BMI 30.2 Weight change and time frame No body weight change reported in 3 days. Weight Status Overweight Subjective/Other Information RD consult for routine F/U on TF tolerance. Pt continues on Mechanical Ventilation. TF continues as prescribed, with adjustment on the Flush quantity recommended. Percent of energy/protein needs met: Prescribed TF-Nepro w/ CARBSTEADY @ 28 ml/hr provides for energy/protein needs (1, 197 Kcal/54 g) during LOS, 100 % Kcal; 86% AA. #1 Nutrition Diagnosis Inadequate oral intake Diagnosis Progress(for reassessment Continues documentation) Is patient on ventilator? Yes Is Patient Ambulatory and/or Out of Bed No REE-([place]-confined to bed) 1389.180 Kcal/Kg value to use for calculation 16 Approximate Energy Requirements Using 1197 kcal/Kg Calculation Used for Recommendations Kcal/kg Additional Notes Protein: 1-1.2 g/Kg; 63-76 g/ day. Fluids: 1 ml/Kcal, or as per MD. Nutrition Intervention Nutrition Support: Nepro w/CARBSTEADY @ 28 ml/hr. Flush: 100 ml water Q 4 hr, or as per MD. Kcal 1,197 Protein (gm) 54 Carbohydrates (gm) 107 Fat (gm) 64 Fluid (mL) 485 Fiber (gm) 8 % RDI: 100% Kcal; 86% AA. Goal #1 Provide at least 75% of energy /protein needs through Enteral Feeding during LOS. Goal #2 Maintain body weight within +/ -3% of admission body weight during LOS. Follow-Up By: 08/28/21 Additional Comments Continue monitoring TF tolerance and BM.
--- NOTE | 2021-08-26 17:32 | Progress Note ---
Assessment and Plan Cultures: 08/19/2021 blood culture: No growth 08/19/2021 tracheal aspirate culture: Light growth of usual respiratory anastacia 08/19/2021 COVID-19 PCR: Positive A/P: 86-year-old female with diabetes, ESRD on HD, recently hospitalized for COVID- 19, was treated with steroids, did not receive Remdesivir due to her ESRD, was hypoxic but gradually weaned to room air at the time of discharge has now been readmitted after being found unresponsive and noted to be severely hypoglycemic with blood sugar < 20 mg/dl. #Recent COVID-19 pneumonia: Treated with steroids during previous admission, Remdesivir not indicated due to renal failure. CXR with b/l airspace opacities without much interval change, likely represents COVID-19 sequelae, might take a while before imaging shows improvement. Ferritin 1787, NT proBNP 44929, CRP 10.6. Possibility of HCAP. Continue empiric abx. #Acute hypoxic respiratory failure: Due to above. #ESRD on HD: Renally adjust antibiotics #Acute encephalopathy: Likely metabolic given severe hypoglycemia Recs: -White coutn normal now, extubated -Continue meropenem -continue renally dosed vancomycin -Planned 8 days antibiotics. ID will sign off. please call with questions Sully Metcalf MD [facility] O: [phone] F: [phone] Subjective Date of service: 08/26/21 Principal diagnosis: AHRF; Sepsis; Possible Aspiration; AMS; ESRD; HFpEF; Leukocytosis Interval history: Afebrile, normal white count. Now extubated on nasal cannula. Objective - Exam Narrative Exam: Physical Exam: Constitutional: awake, on nasal cannula Head, Ears, Nose: Normocephalic, atraumatic. External ears, nose normal Eyes: Conjunctivae/corneas clear. No icterus. No ptosis. Neck: Normal Oral: MMM Cardiovascular: S1, S2 + Respiratory: AE fair GI: Soft, bowel sounds + Musculoskeletal: No pedal edema, no cyanosis. Skin: No rash or abscess Hem/Lymphatic: No palpable cervical or supraclavicular nodes. No lymphangitis Psych: no agitation Neurological: Awake, alert - Constitutional Vitals: Vital Signs Temp Pulse Resp BP Pulse Ox 97.8 F 75 19 165/75 97 08/26/21 17:05 08/26/21 17:05 08/26/21 17:05 08/26/21 17:05 08/26/21 17:05 Temperature -Last 24 Hours Temperature 97.8 F Temperature 97.8 F Temperature 99.5 F Temperature 99.5 F Temperature 98.3 F Temperature 97.9 F Temperature 98.1 F Temperature 97.5 F - Labs CBC & Chem 7: 08/26/21 04:31 08/26/21 04:31 Labs: Abnormal lab results 08/25/21 08/26/21 08/26/21 Range/Units 23:44 04:31 04:31 RBC 2.92 L (3.65-5.03) M/mm3 Hgb 9.0 L (10.1-14.3) gm/dl Hct 26.5 L (30.3-42.9) % RDW 20.5 H (13.2-15.2) % D-Dimer (0-234) ng/mlDDU BUN 39 H (7-17) mg/dL Creatinine 3.2 H (0.6-1.2) mg/dL Glucose 119 H (65-100) mg/dL POC Glucose 134 H (70-105) mg/dL Calcium 7.9 L (8.4-10.2) mg/dL Ferritin (10.0-200.0) ng/mL Lactate Dehydrogenase 194 H (91-180) units/L C-Reactive Protein 9.10 H (0.00-1.30) mg/dL 08/26/21 08/26/21 08/26/21 Range/Units 04:31 04:31 05:24 RBC (3.65-5.03) M/mm3 Hgb (10.1-14.3) gm/dl Hct (30.3-42.9) % RDW (13.2-15.2) % D-Dimer 2539.68 H (0-234) ng/mlDDU BUN (7-17) mg/dL Creatinine (0.6-1.2) mg/dL Glucose (65-100) mg/dL POC Glucose 114 H (70-105) mg/dL Calcium (8.4-10.2) mg/dL Ferritin > 2000.0 H (10.0-200.0) ng/mL Lactate Dehydrogenase (91-180) units/L C-Reactive Protein (0.00-1.30) mg/dL 08/26/21 08/26/21 Range/Units 11:07 16:01 RBC (3.65-5.03) M/mm3 Hgb (10.1-14.3) gm/dl Hct (30.3-42.9) % RDW (13.2-15.2) % D-Dimer (0-234) ng/mlDDU BUN (7-17) mg/dL Creatinine (0.6-1.2) mg/dL Glucose (65-100) mg/dL POC Glucose 121 H 157 H (70-105) mg/dL Calcium (8.4-10.2) mg/dL Ferritin (10.0-200.0) ng/mL Lactate Dehydrogenase (91-180) units/L C-Reactive Protein (0.00-1.30) mg/dL
[2021-08-26] MEDS: MEROPENEM/NS 1 GRAM/100 ML 1 GRAM/100 ML BAG IV SCH (19:16)
--- NOTE | 2021-08-26 20:36 | XRay Report ---
XR abdomen 1V ap INDICATION / CLINICAL INFORMATION: dobhoff placement. COMPARISON: None available. TECHNIQUE: Single image Supine AP abdomen. FINDINGS: TUBES / LINES: Weighted feeding tube lies just through the GE junction. Advancement by several centim eters could be considered. BOWEL GAS PATTERN: No significant abnormality. FREE AIR / EXTRALUMINAL GAS: None seen. ADDITIONAL FINDINGS: No significant additional findings. IMPRESSION: 1. Weighted feeding tube extends just through the GE junction. Advancement by 10-15 centimeters could be considered. Signer Name: Harinder Benson II, MD Signed: 08/26/2021 8:32 PM Workstation Name: [id number]
[2021-08-26] MEDS: SENNOSIDES ORAL LIQD 8.8 MG/5 ML ORAL LIQD PO SCH (22:45)
--- NOTE | 2021-08-26 22:55 | XRay Report ---
ABDOMEN 1 VIEW INDICATION / CLINICAL INFORMATION: dobhoff placement. COMPARISON: Same-day radiograph. FINDINGS: Weighted tip enteric catheter projects over the distal stomach or proximal small bowel. If postpylori c feeding is desired, recommend further advancement to ensure small bowel positioning. Otherwise unch anged. Signer Name: Amador Nguyen MD Signed: 08/26/2021 10:50 PM Workstation Name: [id number]
[2021-08-27] MEDS: INSULIN LISPRO 100 UNIT/ML SUB-Q SCH ×3 (00:55→12:00)
--- NOTE | 2021-08-27 00:59 | XRay Report ---
ABDOMEN 1 VIEW INDICATION / CLINICAL INFORMATION: dobhoff placement. COMPARISON: Radiograph from earlier today. FINDINGS: Weighted tip enteric catheter projects over the proximal duodenum. Otherwise unchanged. Signer Name: Amador Nguyen MD Signed: 08/27/2021 12:55 AM Workstation Name: [id number]
[2021-08-27] MEDS: HEPARIN 5,000 UNIT/1 ML VIAL SUB-Q SCH ×4 (01:06→21:51)
[2021-08-27] MEDS ORDERED: LORazepam 2 MG/ML VIAL IV ONE (02:25)
[2021-08-27] MEDS: BUDESONIDE 0.5 MG/2 ML NEBU IH SCH ×2 (07:28→22:04)
--- NOTE | 2021-08-27 08:30 | XRay Report ---
ABDOMEN 1 VIEW(S) INDICATION / CLINICAL INFORMATION: dobhoff. COMPARISON: Earlier today at 0040 hours FINDINGS: TUBES / LINES: The feeding tube has been retracted from the pyloric region to the fundus of the stoma ch. BOWEL GAS PATTERN: No significant abnormality. FREE AIR / EXTRALUMINAL GAS: None seen. ADDITIONAL FINDINGS: No significant additional findings. IMPRESSION: The feeding tube terminates just beyond the GE junction in the fundus of the stomach as described. Co nsider advancement to transpyloric position. Signer Name: Cr Graf Jr, MD Signed: 08/27/2021 8:26 AM Workstation Name: [id number]
[2021-08-27 08:51] LABS: Calcium 8.5 mg/dL (8.4-10.2)
--- NOTE | 2021-08-27 12:36 | Progress Note ---
Assessment and Plan Acute Hypoxemic Respiratory Failure on MVS Sepsis Recurrent hypoglycemic events h/o COVID Pneumonia Possible Aspiration Leukocytosis Acute Metabolic Encephalopathy Hypomagnesemia End stage renal disease Congestive heart failure with preserved EF (chronic) - GI consult placed for PEG placement - prn BIPAP - continue care as below otherwise; - continue to wean supplemental oxygen for target O2 sat's > 90% acutely - aspiration precautions - prn bronchodilators with pulmonary hygiene per RT - avoid nephrotoxins, renally dose all medications - continue to avoid benzodiazepine's, reduce the possibility of delirium - AB's per ID rec's - prn analgesia per CPOT score - Maintenance of sleep-wake cycle, avoid delirium - continue enteral nutritional support at goal rate as tolerated - G.I. & VTE prophylaxis - PT/OT/ROM exercises - continue mobility protocols for pressure ulcer prophylaxis - Monitor hemodynamics closely - continue other care per attending / other consultants - discharge planning ongoing concurrently .... Re-evaluate in am & prn Subjective Date of service: 08/27/21 Principal diagnosis: AHRF; Sepsis; Possible Aspiration; AMS; ESRD; HFpEF; Leukocytosis Interval history: Patient is seen today for: Acute Hypoxemic Respiratory Failure; Recurrent Hypoglycemia; Sepsis; Possible Aspiration; AMS; ESRD; HFpEF; Leukocytosis Seen and examined at bedside; 24hour events reviewed; nursing and respiratory care staff consulted; no adverse overnight events reported to me; resting in bed; still doing well post extubation; alert; no emesis or overt aspiration Objective Vital Signs - 12hr 08/27/21 08/27/21 08/27/21 03:00 05:26 07:00 Temperature 98.2 F Pulse Rate 64 86 64 Pulse Rate [ Anterior Bilateral] Pulse Rate [ Bilateral] Respiratory 18 Rate Respiratory Rate [Anterior Bilateral] Respiratory Rate [Bilateral ] Blood Pressure 127/63 O2 Sat by Pulse 95 Oximetry 08/27/21 07:28 Temperature Pulse Rate Pulse Rate [ 69 Anterior Bilateral] Pulse Rate [ 68 Bilateral] Respiratory Rate Respiratory 16 Rate [Anterior Bilateral] Respiratory 16 Rate [Bilateral ] Blood Pressure O2 Sat by Pulse Oximetry Constitutional: no acute distress Eyes: non-icteric ENT: oropharynx moist Neck: supple, no lymphadenopathy Effort: normal Ascultation: Bilateral: clear, diminished breath sounds Percussion: Bilateral: not dull Cardiovascular: regular rate and rhythm, other (S1,S2) Gastrointestinal: normoactive bowel sounds, soft, non-tender, non-distended Integumentary: normal Extremities: no cyanosis, no edema, pink and warm, pulses normal Neurologic: non-focal exam (grossly), pupils equal and round, CN II-XII normal Psychiatric: mood appropriate, affect normal CBC and BMP: 08/26/21 04:31 08/28/21 06:51 ABG, PT/INR, D-dimer: ABG ABG pH 7.453 pH Units (7.350-7.450) H 08/25/21 10:30 ABG pCO2 42.8 mm Hg 08/25/21 10:30 ABG pO2 98.5 mm Hg (80.0-90.0) H 08/25/21 10:30 ABG O2 Saturation 97.6 % (95.0-99.0) 08/25/21 10:30 PT/INR, D-dimer PT 15.6 Sec. (12.2-14.9) H 08/19/21 04:53 INR 1.12 (0.87-1.13) 08/19/21 04:53 D-Dimer 2539.68 ng/mlDDU (0-234) H 08/26/21 04:31 Abnormal lab findings: Abnormal Labs 08/19/21 08/19/21 08/19/21 04:53 04:53 04:53 WBC 13.0 H RBC 3.03 L Hgb 9.1 L Hct 28.8 L RDW 20.5 H Lymph % (Auto) Seg Neutrophils % Seg Neuts % (Manual) 96.0 H Lymphocytes % (Manual) 1.0 L Seg Neutrophils # Seg Neutrophils # Man 12.5 H Lymphocytes # (Manual) 0.1 L PT 15.6 H D-Dimer ABG pH ABG pO2 ABG HCO3 ABG O2 Saturation ABG Base Excess ABG Hemoglobin Sodium 132 L D Potassium Chloride 96.8 L BUN Creatinine 3.6 H Glucose 599 H* POC Glucose Lactic Acid Calcium 6.6 L D Phosphorus Magnesium 1.50 L Ferritin ALT 6 L Ammonia Lactate Dehydrogenase Troponin T 0.042 H C-Reactive Protein NT-Pro-B Natriuret Pep Total Protein 5.4 L Albumin 2.4 L TSH Coronavirus (PCR) Crossmatch 08/19/21 08/19/21 08/19/21 04:53 04:53 05:35 WBC RBC Hgb Hct RDW Lymph % (Auto) Seg Neutrophils % Seg Neuts % (Manual) Lymphocytes % (Manual) Seg Neutrophils # Seg Neutrophils # Man Lymphocytes # (Manual) PT D-Dimer ABG pH 7.520 H ABG pO2 152.6 H ABG HCO3 26.3 H ABG O2 Saturation ABG Base Excess 3.4 H ABG Hemoglobin 7.9 L Sodium Potassium Chloride BUN Creatinine Glucose POC Glucose Lactic Acid 2.10 H* Calcium Phosphorus Magnesium Ferritin ALT Ammonia 10.0 L Lactate Dehydrogenase Troponin T C-Reactive Protein NT-Pro-B Natriuret Pep Total Protein Albumin TSH Coronavirus (PCR) Crossmatch 08/19/21 08/19/21 08/19/21 06:01 07:54 08:30 WBC RBC Hgb Hct RDW Lymph % (Auto) Seg Neutrophils % Seg Neuts % (Manual) Lymphocytes % (Manual) Seg Neutrophils # Seg Neutrophils # Man Lymphocytes # (Manual) PT D-Dimer ABG pH ABG pO2 ABG HCO3 ABG O2 Saturation ABG Base Excess ABG Hemoglobin Sodium Potassium Chloride BUN Creatinine Glucose POC Glucose < 10 L Lactic Acid Calcium Phosphorus Magnesium Ferritin ALT Ammonia Lactate Dehydrogenase Troponin T C-Reactive Protein NT-Pro-B Natriuret Pep 89112 H Total Protein Albumin TSH 4.850 H Coronavirus (PCR) Crossmatch 08/19/21 08/19/21 08/19/21 08:30 08:37 09:43 WBC RBC Hgb Hct RDW Lymph % (Auto) Seg Neutrophils % Seg Neuts % (Manual) Lymphocytes % (Manual) Seg Neutrophils # Seg Neutrophils # Man Lymphocytes # (Manual) PT D-Dimer ABG pH ABG pO2 ABG HCO3 ABG O2 Saturation ABG Base Excess ABG Hemoglobin Sodium Potassium Chloride BUN Creatinine Glucose POC Glucose 115 H < 10 L Lactic Acid 3.20 H* Calcium Phosphorus Magnesium Ferritin ALT Ammonia Lactate Dehydrogenase Troponin T C-Reactive Protein NT-Pro-B Natriuret Pep Total Protein Albumin TSH Coronavirus (PCR) Crossmatch 08/19/21 08/19/21 08/19/21 10:07 11:05 11:49 WBC RBC Hgb Hct RDW Lymph % (Auto) Seg Neutrophils % Seg Neuts % (Manual) Lymphocytes % (Manual) Seg Neutrophils # Seg Neutrophils # Man Lymphocytes # (Manual) PT D-Dimer ABG pH ABG pO2 ABG HCO3 ABG O2 Saturation ABG Base Excess ABG Hemoglobin Sodium Potassium Chloride BUN Creatinine Glucose POC Glucose 109 H 32 L 164 H Lactic Acid Calcium Phosphorus Magnesium Ferritin ALT Ammonia Lactate Dehydrogenase Troponin T C-Reactive Protein NT-Pro-B Natriuret Pep Total Protein Albumin TSH Coronavirus (PCR) Crossmatch 08/19/21 08/19/21 08/19/21 14:03 16:57 18:23 WBC RBC Hgb Hct RDW Lymph % (Auto) Seg Neutrophils % Seg Neuts % (Manual) Lymphocytes % (Manual) Seg Neutrophils # Seg Neutrophils # Man Lymphocytes # (Manual) PT D-Dimer ABG pH ABG pO2 ABG HCO3 ABG O2 Saturation ABG Base Excess ABG Hemoglobin Sodium Potassium Chloride BUN Creatinine Glucose POC Glucose 51 L 57 L 50 L Lactic Acid Calcium Phosphorus Magnesium Ferritin ALT Ammonia Lactate Dehydrogenase Troponin T C-Reactive Protein NT-Pro-B Natriuret Pep Total Protein Albumin TSH Coronavirus (PCR) Crossmatch 08/19/21 08/19/21 08/19/21 19:15 21:42 23:29 WBC RBC Hgb Hct RDW Lymph % (Auto) Seg Neutrophils % Seg Neuts % (Manual) Lymphocytes % (Manual) Seg Neutrophils # Seg Neutrophils # Man Lymphocytes # (Manual) PT D-Dimer ABG pH ABG pO2 ABG HCO3 ABG O2 Saturation ABG Base Excess ABG Hemoglobin Sodium Potassium Chloride BUN Creatinine Glucose 26 L* POC Glucose 57 L 42 L Lactic Acid Calcium Phosphorus Magnesium Ferritin ALT Ammonia Lactate Dehydrogenase Troponin T C-Reactive Protein NT-Pro-B Natriuret Pep Total Protein Albumin TSH Coronavirus (PCR) Crossmatch 08/19/21 08/19/21 08/20/21 Unknown Unknown 00:37 WBC RBC Hgb Hct RDW Lymph % (Auto) Seg Neutrophils % Seg Neuts % (Manual) Lymphocytes % (Manual) Seg Neutrophils # Seg Neutrophils # Man Lymphocytes # (Manual) PT D-Dimer ABG pH 7.499 H ABG pO2 239.2 H ABG HCO3 27.6 H ABG O2 Saturation 99.4 H ABG Base Excess 4.3 H ABG Hemoglobin 11.3 L Sodium Potassium Chloride BUN Creatinine Glucose POC Glucose 50 L Lactic Acid Calcium Phosphorus Magnesium Ferritin ALT Ammonia Lactate Dehydrogenase Troponin T C-Reactive Protein NT-Pro-B Natriuret Pep Total Protein Albumin TSH Coronavirus (PCR) Positive A Crossmatch 08/20/21 08/20/2122 01:41 02:35 03:41 WBC RBC Hgb Hct RDW Lymph % (Auto) Seg Neutrophils % Seg Neuts % (Manual) Lymphocytes % (Manual) Seg Neutrophils # Seg Neutrophils # Man Lymphocytes # (Manual) PT D-Dimer ABG pH ABG pO2 ABG HCO3 ABG O2 Saturation ABG Base Excess ABG Hemoglobin Sodium Potassium Chloride BUN Creatinine Glucose POC Glucose 54 L 40 L 13 L Lactic Acid Calcium Phosphorus Magnesium Ferritin ALT Ammonia Lactate Dehydrogenase Troponin T C-Reactive Protein NT-Pro-B Natriuret Pep Total Protein Albumin TSH Coronavirus (PCR) Crossmatch 08/20/21 08/20/21 08/20/21 04:15 04:15 04:15 WBC 14.6 H RBC Hgb Hct RDW 20.7 H Lymph % (Auto) 9.9 L Seg Neutrophils % 82.4 H Seg Neuts % (Manual) Lymphocytes % (Manual) Seg Neutrophils # 12.0 H Seg Neutrophils # Man Lymphocytes # (Manual) PT D-Dimer ABG pH ABG pO2 ABG HCO3 ABG O2 Saturation ABG Base Excess ABG Hemoglobin Sodium 132 L Potassium Chloride 93.8 L BUN Creatinine 2.7 H Glucose 52 L POC Glucose Lactic Acid 3.40 H* Calcium 7.1 L Phosphorus Magnesium Ferritin ALT Ammonia Lactate Dehydrogenase Troponin T C-Reactive Protein NT-Pro-B Natriuret Pep Total Protein 4.9 L Albumin 2.6 L TSH Coronavirus (PCR) Crossmatch 08/20/21 08/20/21 08/20/21 05:28 06:33 07:37 WBC RBC Hgb Hct RDW Lymph % (Auto) Seg Neutrophils % Seg Neuts % (Manual) Lymphocytes % (Manual) Seg Neutrophils # Seg Neutrophils # Man Lymphocytes # (Manual) PT D-Dimer ABG pH ABG pO2 ABG HCO3 ABG O2 Saturation ABG Base Excess ABG Hemoglobin Sodium Potassium Chloride BUN Creatinine Glucose POC Glucose 51 L 67 L 59 L Lactic Acid Calcium Phosphorus Magnesium Ferritin ALT Ammonia Lactate Dehydrogenase Troponin T C-Reactive Protein NT-Pro-B Natriuret Pep Total Protein Albumin TSH Coronavirus (PCR) Crossmatch 08/20/21 08/20/21 08/20/21 11:55 12:31 13:37 WBC RBC Hgb Hct RDW Lymph % (Auto) Seg Neutrophils % Seg Neuts % (Manual) Lymphocytes % (Manual) Seg Neutrophils # Seg Neutrophils # Man Lymphocytes # (Manual) PT D-Dimer ABG pH 7.526 H ABG pO2 166.8 H ABG HCO3 ABG O2 Saturation 99.1 H ABG Base Excess ABG Hemoglobin 8.7 L Sodium Potassium Chloride BUN Creatinine Glucose POC Glucose 152 H 150 H Lactic Acid Calcium Phosphorus Magnesium Ferritin ALT Ammonia Lactate Dehydrogenase Troponin T C-Reactive Protein NT-Pro-B Natriuret Pep Total Protein Albumin TSH Coronavirus (PCR) Crossmatch 08/20/21 08/20/21 08/20/21 15:47 17:53 23:19 WBC RBC Hgb Hct RDW Lymph % (Auto) Seg Neutrophils % Seg Neuts % (Manual) Lymphocytes % (Manual) Seg Neutrophils # Seg Neutrophils # Man Lymphocytes # (Manual) PT D-Dimer ABG pH ABG pO2 ABG HCO3 ABG O2 Saturation ABG Base Excess ABG Hemoglobin Sodium Potassium Chloride BUN Creatinine Glucose POC Glucose 204 H 223 H 217 H Lactic Acid Calcium Phosphorus Magnesium Ferritin ALT Ammonia Lactate Dehydrogenase Troponin T C-Reactive Protein NT-Pro-B Natriuret Pep Total Protein Albumin TSH Coronavirus (PCR) Crossmatch 08/21/21 08/21/21 08/21/21 04:46 04:46 04:46 WBC 23.9 H RBC 2.55 L Hgb 7.8 L D Hct 23.6 L D RDW 20.2 H Lymph % (Auto) Seg Neutrophils % Seg Neuts % (Manual) 97.0 H Lymphocytes % (Manual) 1.0 L Seg Neutrophils # Seg Neutrophils # Man 23.2 H Lymphocytes # (Manual) 0.2 L PT D-Dimer ABG pH ABG pO2 ABG HCO3 ABG O2 Saturation ABG Base Excess ABG Hemoglobin Sodium 122 L D Potassium Chloride 87.0 L BUN 23 H Creatinine 3.8 H Glucose 166 H POC Glucose Lactic Acid Calcium 6.8 L Phosphorus 1.60 L Magnesium 1.60 L Ferritin 1787.0 H ALT Ammonia Lactate Dehydrogenase Troponin T C-Reactive Protein 10.60 H NT-Pro-B Natriuret Pep Total Protein Albumin TSH Coronavirus (PCR) Crossmatch 08/21/21 08/21/21 08/21/21 05:11 08:18 11:10 WBC RBC Hgb Hct RDW Lymph % (Auto) Seg Neutrophils % Seg Neuts % (Manual) Lymphocytes % (Manual) Seg Neutrophils # Seg Neutrophils # Man Lymphocytes # (Manual) PT D-Dimer ABG pH 7.495 H ABG pO2 141.5 H ABG HCO3 26.2 H ABG O2 Saturation ABG Base Excess ABG Hemoglobin 7.9 L Sodium Potassium Chloride BUN Creatinine Glucose POC Glucose 151 H 141 H Lactic Acid Calcium Phosphorus Magnesium Ferritin ALT Ammonia Lactate Dehydrogenase Troponin T C-Reactive Protein NT-Pro-B Natriuret Pep Total Protein Albumin TSH Coronavirus (PCR) Crossmatch 08/21/21 08/21/21 08/21/21 14:42 16:43 23:34 WBC RBC Hgb Hct RDW Lymph % (Auto) Seg Neutrophils % Seg Neuts % (Manual) Lymphocytes % (Manual) Seg Neutrophils # Seg Neutrophils # Man Lymphocytes # (Manual) PT D-Dimer ABG pH ABG pO2 ABG HCO3 ABG O2 Saturation ABG Base Excess ABG Hemoglobin Sodium 121 L Potassium 5.2 H Chloride 88.1 L BUN 28 H Creatinine 3.9 H Glucose 130 H POC Glucose 113 H 171 H Lactic Acid Calcium 6.7 L Phosphorus Magnesium 2.80 H Ferritin ALT Ammonia Lactate Dehydrogenase Troponin T C-Reactive Protein NT-Pro-B Natriuret Pep Total Protein Albumin TSH Coronavirus (PCR) Crossmatch 08/22/21 08/22/21 08/22/21 05:09 05:09 05:40 WBC 25.0 H RBC 2.55 L Hgb 7.8 L Hct 23.5 L RDW 21.1 H Lymph % (Auto) Seg Neutrophils % Seg Neuts % (Manual) Lymphocytes % (Manual) Seg Neutrophils # Seg Neutrophils # Man Lymphocytes # (Manual) PT D-Dimer ABG pH 7.513 H ABG pO2 ABG HCO3 ABG O2 Saturation ABG Base Excess ABG Hemoglobin 8.6 L Sodium 135 L D Potassium Chloride BUN 20 H Creatinine 2.9 H Glucose POC Glucose Lactic Acid Calcium 7.6 L Phosphorus 1.40 L D Magnesium Ferritin ALT Ammonia Lactate Dehydrogenase Troponin T C-Reactive Protein NT-Pro-B Natriuret Pep Total Protein Albumin TSH Coronavirus (PCR) Crossmatch 08/22/21 08/22/21 08/22/21 11:37 12:09 17:16 WBC RBC Hgb Hct RDW Lymph % (Auto) Seg Neutrophils % Seg Neuts % (Manual) Lymphocytes % (Manual) Seg Neutrophils # Seg Neutrophils # Man Lymphocytes # (Manual) PT D-Dimer ABG pH ABG pO2 ABG HCO3 ABG O2 Saturation ABG Base Excess ABG Hemoglobin Sodium Potassium Chloride BUN Creatinine Glucose POC Glucose 122 H 121 H 120 H Lactic Acid Calcium Phosphorus Magnesium Ferritin ALT Ammonia Lactate Dehydrogenase Troponin T C-Reactive Protein NT-Pro-B Natriuret Pep Total Protein Albumin TSH Coronavirus (PCR) Crossmatch 08/22/21 08/23/21 08/23/21 23:49 04:00 04:00 WBC 19.0 H RBC 2.41 L Hgb 7.2 L Hct 22.4 L RDW 22.1 H Lymph % (Auto) Seg Neutrophils % Seg Neuts % (Manual) Lymphocytes % (Manual) Seg Neutrophils # Seg Neutrophils # Man Lymphocytes # (Manual) PT D-Dimer ABG pH ABG pO2 ABG HCO3 ABG O2 Saturation ABG Base Excess ABG Hemoglobin Sodium Potassium Chloride BUN 32 H Creatinine 3.7 H Glucose 109 H POC Glucose 114 H Lactic Acid Calcium 6.8 L Phosphorus 4.70 H D Magnesium Ferritin ALT Ammonia Lactate Dehydrogenase Troponin T C-Reactive Protein NT-Pro-B Natriuret Pep Total Protein Albumin TSH Coronavirus (PCR) Crossmatch 08/23/21 08/23/21 08/23/21 04:54 05:40 11:10 WBC RBC Hgb Hct RDW Lymph % (Auto) Seg Neutrophils % Seg Neuts % (Manual) Lymphocytes % (Manual) Seg Neutrophils # Seg Neutrophils # Man Lymphocytes # (Manual) PT D-Dimer ABG pH 7.475 H ABG pO2 111.8 H ABG HCO3 26.1 H ABG O2 Saturation ABG Base Excess ABG Hemoglobin 7.5 L Sodium Potassium Chloride BUN Creatinine Glucose POC Glucose 108 H 107 H Lactic Acid Calcium Phosphorus Magnesium Ferritin ALT Ammonia Lactate Dehydrogenase Troponin T C-Reactive Protein NT-Pro-B Natriuret Pep Total Protein Albumin TSH Coronavirus (PCR) Crossmatch 08/23/21 08/23/21 08/24/21 16:07 23:52 04:00 WBC 15.5 H RBC 2.22 L Hgb 6.9 L Hct 20.8 L RDW 22.2 H Lymph % (Auto) Seg Neutrophils % Seg Neuts % (Manual) Lymphocytes % (Manual) Seg Neutrophils # Seg Neutrophils # Man Lymphocytes # (Manual) PT D-Dimer ABG pH ABG pO2 ABG HCO3 ABG O2 Saturation ABG Base Excess ABG Hemoglobin Sodium Potassium Chloride BUN Creatinine Glucose POC Glucose 132 H 138 H Lactic Acid Calcium Phosphorus Magnesium Ferritin ALT Ammonia Lactate Dehydrogenase Troponin T C-Reactive Protein NT-Pro-B Natriuret Pep Total Protein Albumin TSH Coronavirus (PCR) Crossmatch 08/24/21 08/24/21 08/24/21 04:00 06:00 06:41 WBC RBC Hgb Hct RDW Lymph % (Auto) Seg Neutrophils % Seg Neuts % (Manual) Lymphocytes % (Manual) Seg Neutrophils # Seg Neutrophils # Man Lymphocytes # (Manual) PT D-Dimer ABG pH 7.491 H ABG pO2 105.3 H ABG HCO3 ABG O2 Saturation ABG Base Excess ABG Hemoglobin 7.0 L Sodium 136 L Potassium Chloride BUN 43 H Creatinine 4.1 H Glucose 104 H POC Glucose Lactic Acid Calcium 6.9 L Phosphorus Magnesium Ferritin ALT Ammonia Lactate Dehydrogenase Troponin T C-Reactive Protein NT-Pro-B Natriuret Pep Total Protein Albumin TSH Coronavirus (PCR) Crossmatch See Detail 08/24/21 08/24/21 08/24/21 12:06 18:46 23:32 WBC RBC Hgb Hct RDW Lymph % (Auto) Seg Neutrophils % Seg Neuts % (Manual) Lymphocytes % (Manual) Seg Neutrophils # Seg Neutrophils # Man Lymphocytes # (Manual) PT D-Dimer ABG pH ABG pO2 ABG HCO3 ABG O2 Saturation ABG Base Excess ABG Hemoglobin Sodium Potassium Chloride BUN Creatinine Glucose POC Glucose 135 H 133 H 131 H Lactic Acid Calcium Phosphorus Magnesium Ferritin ALT Ammonia Lactate Dehydrogenase Troponin T C-Reactive Protein NT-Pro-B Natriuret Pep Total Protein Albumin TSH Coronavirus (PCR) Crossmatch 08/25/21 08/25/21 08/25/21 04:12 04:12 05:34 WBC 12.8 H RBC 2.97 L Hgb 9.1 L Hct 26.8 L D RDW 19.8 H Lymph % (Auto) Seg Neutrophils % Seg Neuts % (Manual) Lymphocytes % (Manual) Seg Neutrophils # Seg Neutrophils # Man Lymphocytes # (Manual) PT D-Dimer ABG pH ABG pO2 ABG HCO3 ABG O2 Saturation ABG Base Excess ABG Hemoglobin Sodium Potassium Chloride BUN 25 H Creatinine 2.9 H Glucose 123 H POC Glucose 117 H Lactic Acid Calcium 7.8 L Phosphorus Magnesium Ferritin ALT Ammonia Lactate Dehydrogenase Troponin T C-Reactive Protein NT-Pro-B Natriuret Pep Total Protein Albumin TSH Coronavirus (PCR) Crossmatch 08/25/21 08/25/21 08/25/21 10:30 12:19 16:39 WBC RBC Hgb Hct RDW Lymph % (Auto) Seg Neutrophils % Seg Neuts % (Manual) Lymphocytes % (Manual) Seg Neutrophils # Seg Neutrophils # Man Lymphocytes # (Manual) PT D-Dimer ABG pH 7.453 H ABG pO2 98.5 H ABG HCO3 29.2 H ABG O2 Saturation ABG Base Excess 4.8 H ABG Hemoglobin 11.2 L Sodium Potassium Chloride BUN Creatinine Glucose POC Glucose 128 H 124 H Lactic Acid Calcium Phosphorus Magnesium Ferritin ALT Ammonia Lactate Dehydrogenase Troponin T C-Reactive Protein NT-Pro-B Natriuret Pep Total Protein Albumin TSH Coronavirus (PCR) Crossmatch 08/25/21 08/26/21 08/26/21 23:44 04:31 04:31 WBC RBC 2.92 L Hgb 9.0 L Hct 26.5 L RDW 20.5 H Lymph % (Auto) Seg Neutrophils % Seg Neuts % (Manual) Lymphocytes % (Manual) Seg Neutrophils # Seg Neutrophils # Man Lymphocytes # (Manual) PT D-Dimer ABG pH ABG pO2 ABG HCO3 ABG O2 Saturation ABG Base Excess ABG Hemoglobin Sodium Potassium Chloride BUN 39 H Creatinine 3.2 H Glucose 119 H POC Glucose 134 H Lactic Acid Calcium 7.9 L Phosphorus Magnesium Ferritin ALT Ammonia Lactate Dehydrogenase 194 H Troponin T C-Reactive Protein 9.10 H NT-Pro-B Natriuret Pep Total Protein Albumin TSH Coronavirus (PCR) Crossmatch 08/26/21 08/26/21 08/26/21 04:31 04:31 05:24 WBC RBC Hgb Hct RDW Lymph % (Auto) Seg Neutrophils % Seg Neuts % (Manual) Lymphocytes % (Manual) Seg Neutrophils # Seg Neutrophils # Man Lymphocytes # (Manual) PT D-Dimer 2539.68 H ABG pH ABG pO2 ABG HCO3 ABG O2 Saturation ABG Base Excess ABG Hemoglobin Sodium Potassium Chloride BUN Creatinine Glucose POC Glucose 114 H Lactic Acid Calcium Phosphorus Magnesium Ferritin > 2000.0 H ALT Ammonia Lactate Dehydrogenase Troponin T C-Reactive Protein NT-Pro-B Natriuret Pep Total Protein Albumin TSH Coronavirus (PCR) Crossmatch 08/26/21 08/26/21 08/27/21 11:07 16:01 08:08 WBC RBC Hgb Hct RDW Lymph % (Auto) Seg Neutrophils % Seg Neuts % (Manual) Lymphocytes % (Manual) Seg Neutrophils # Seg Neutrophils # Man Lymphocytes # (Manual) PT D-Dimer ABG pH ABG pO2 ABG HCO3 ABG O2 Saturation ABG Base Excess ABG Hemoglobin Sodium Potassium Chloride BUN 23 H Creatinine 2.2 H Glucose POC Glucose 121 H 157 H Lactic Acid Calcium Phosphorus Magnesium Ferritin ALT Ammonia Lactate Dehydrogenase Troponin T C-Reactive Protein NT-Pro-B Natriuret Pep Total Protein Albumin TSH Coronavirus (PCR) Crossmatch Allied health notes reviewed: nursing
[2021-08-27] MEDS: FAMOTIDINE 20 MG TAB PO SCH (12:49)
[2021-08-27] MEDS: amLODIPine 10 MG TAB PO SCH (12:49)
[2021-08-27] MEDS: cloNIDine 0.1 MG TAB PO SCH ×2 (12:50→21:51)
--- NOTE | 2021-08-27 13:13 | Progress Note ---
Assessment and Plan Impression * End-stage renal disease on maintenance hemodialysis * Acute hypoxic respiratory failure * COVID-19 pneumonia * Hypokalemia * Hyponatremia * Anemia secondary to ESRD * Diabetes * Hypertension * Hypocalcemia Recommendations * Continue hemodialysis MWF or prn, due tomorrow, no need for HD today per labs/clinical status * UF as tolerated * Dialysate adjusted prn, note Ca has improved on vitamin D analog * Maintain MAP>65 - pressors prn * Antibiotic therapy as per primary team and infectious diseases * Adjust diet and meds for ESRD state * Epogen with dialysis * No IV, BP or venipuncture in her access arm * Avoid nephrotoxins * Monitor fluid status and electrolytes closely * [facility] Re[facility] outpatient, COVID-19+ as of 08/19 Subjective Date of service: 08/27/21 Principal diagnosis: AHRF; Sepsis; Possible Aspiration; AMS; ESRD; HFpEF; Leukocytosis Interval history: Resting in bed Objective - Exam Narrative Exam: General appearance: well-developed, well-nourished, intubated EENT: ATNC, on NC Respiratory: Present: Clear to Ascultation Cardiology: regular, S1S2, systolic murmur (harsh SM at RUSB) Gastrointestinal: no distended (soft) Integumentary: no rash, warm and dry Skin: intact - Vital Signs Vital signs: Vital Signs - 12hr 08/27/21 08/27/21 08/27/21 03:00 05:26 07:00 Temperature 98.2 F Pulse Rate 64 86 64 Pulse Rate [ Anterior Bilateral] Pulse Rate [ Bilateral] Respiratory 18 Rate Respiratory Rate [Anterior Bilateral] Respiratory Rate [Bilateral ] Blood Pressure 127/63 O2 Sat by Pulse 95 Oximetry 08/27/21 08/27/21 08/27/21 07:28 11:45 12:49 Temperature 98.6 F Pulse Rate 82 82 Pulse Rate [ 69 Anterior Bilateral] Pulse Rate [ 68 Bilateral] Respiratory 22 Rate Respiratory 16 Rate [Anterior Bilateral] Respiratory 16 Rate [Bilateral ] Blood Pressure 176/60 176/60 O2 Sat by Pulse 94 Oximetry - Lab 08/26/21 04:31 08/27/21 08:08 Most recent lab results ABG pH 7.453 pH Units (7.350-7.450) H 08/25/21 10:30 ABG pCO2 42.8 mm Hg 08/25/21 10:30 ABG pO2 98.5 mm Hg (80.0-90.0) H 08/25/21 10:30 ABG HCO3 29.2 mmol/L (20.0-26.0) H 08/25/21 10:30 ABG O2 Saturation 97.6 % (95.0-99.0) 08/25/21 10:30 Calcium 8.5 mg/dL (8.4-10.2) 08/27/21 08:08 Phosphorus 2.80 mg/dL (2.5-4.5) 08/26/21 04:31 Magnesium 2.20 mg/dL (1.7-2.3) 08/26/21 04:31 Medications & Allergies - Medications Allergies/Adverse Reactions: Allergies No Known Allergies Allergy (Verified 08/25/21 09:27) Home Medications: Home Medications Medication Instructions Recorded Confirmed Last Taken Type amLODIPine 10 mg PO DAILY #30 tablet 01/31/20 08/25/21 Unknown Rx Glimepiride 1 mg PO QDAY #30 tablet 04/21/20 08/25/21 Unknown Rx Diclofenac 1% [Diclofenac 1% 2 - 4 gm TP QID 08/12/21 08/25/21 Unknown History topical gel] Gabapentin 300 mg PO BID 08/12/21 08/25/21 Unknown History Mirtazapine [Remeron 15mg TAB] 15 mg PO QHS 08/12/21 08/25/21 Unknown History cloNIDine [Catapres] 0.1 mg PO BID 08/12/21 08/25/21 Unknown History Famotidine [Pepcid] 20 mg PO QAM #30 tablet 08/17/21 08/25/21 Unknown Rx Zinc Sulfate [Zinc] 220 mg PO BID #30 08/17/21 08/25/21 Unknown Rx Active Medications: Generic Name Dose Route Start Last Admin Trade Name Freq PRN Reason Stop Dose Admin Acetaminophen 650 mg 08/19/21 10:00 Acetaminophen 325 Mg Tab PO Q6H PRN Pain MILD(1-3)/Fever >100.5/MEHTA Albuterol 2.5 mg 08/19/21 11:00 Albuterol 2.5 Mg/3 Ml Nebu IH Q3HRT PRN Shortness Of Breath Amlodipine Besylate 10 mg 08/23/21 10:00 08/27/21 12:49 Amlodipine 10 Mg Tab PO 10 mg QDAY ANAHY Administration Budesonide 0.5 mg 08/19/21 20:00 08/27/21 07:28 Budesonide 0.5 Mg/2 Ml Nebu IH 0.5 mg Q12HRT ANAHY Administration Clonidine HCl 0.1 mg 08/24/21 10:00 08/27/21 12:50 Clonidine 0.1 Mg Tab PO 0.1 mg BID ANAHY Administration Dextrose 0 ml 08/19/21 09:30 08/20/21 11:28 Dextrose 10% *Hypoglycemia IV 50 ml PRN PRN Administration Hypoglycemia Famotidine 20 mg 08/19/21 10:00 08/27/21 12:49 Famotidine 20 Mg Tab PO 20 mg QAM ANAHY Administration Heparin Sodium (Porcine) 5,000 unit 08/19/21 11:00 08/27/21 06:42 Heparin 5,000 Unit/1 Ml Vial SUB-Q 5,000 unit Q8HR ANAHY Administration Meropenem/Sodium Chloride 1 gram in 100 mls @ 100 mls/hr 08/21/21 18:00 08/26/21 19:16 Merrem/Ns 1 Gram/100 Ml IV 08/28/21 18:59 100 mls/hr QPM ANAHY Administration Protocol Sodium Chloride 100 mls @ 999 mls/hr 08/24/21 10:50 Nacl 0.9% IV LEVI PRN Hypotension Insulin Human Lispro 0 unit 08/19/21 12:00 08/27/21 12:00 Insulin Lispro 100 Unit/Ml SUB-Q Not Given Q6HR [facility] Protocol Labetalol HCl 10 mg 08/23/21 12:17 08/25/21 12:16 Labetalol 20 Mg/4 Ml Inj IV 10 mg Q4H PRN Administration Hypertension Mirtazapine 15 mg 08/20/21 10:02 Mirtazapine 15 Mg Tab PO QHS PRN Sleep Naloxone HCl 0.1 mg 08/19/21 09:30 Naloxone 0.4 Mg/1 Ml Inj IV Q2MIN PRN Res Rate </= 8 or 02 SAT < 92% Paricalcitol 2 mcg 08/24/21 10:50 08/24/21 17:56 Paricalcitol 2 Mcg/1 Ml Inj IV 2 mcg LEVI PRN Administration hemodialysis Senna 17.6 mg 08/20/21 22:00 08/26/21 22:45 Sennosides Oral Liqd 8.8 Mg/5 Ml Oral Liqd PO Not Given QHS ANAHY Simple Syrup 30 ml 08/19/21 17:44 08/20/21 03:48 Simple Syrup 15 Ml FEEDTUBE 30 ml PRN PRN Administration Hypoglycemia Sodium Chloride 10 ml 08/19/21 10:00 08/27/21 12:50 Sodium Chloride 0.9% 10 Ml Flush Syringe IV 10 ml BID ANAHY Administration Sodium Chloride 10 ml 08/19/21 09:30 Sodium Chloride 0.9% 10 Ml Flush Syringe IV PRN PRN LINE FLUSH
--- NOTE | 2021-08-27 15:39 | Consultation ---
History of Present Illness - Reason for Consult Consult date: 08/27/21 Feeding tube placement Requesting physician: MARGARITO ONEILL - History of Present Illness 86 yo [place] female with COVID, who was admitted on August 19 unresponsive and intubated. She was hypoglycemic. She has gradually improved. She had recently been discharged from the hospital with Covid. GI consult is requested for G-tube placement since patient was apparently having bouts of hypoglycemia as an outpatient over the last few years. I spoke with the patient's grand daughter, SAMMY, who states that the family really does not want her to have a feeding tube in place. She states that they felt that there was no choice but to get one done. At home, patient does not have baseline dementia. She is weak and lives with her . He helps her eat and helps her with her activities of daily living. Past History Past Medical History: diabetes, hypertension, hyperlipidemia, other (Covid) Past Surgical History: Other ( right upper and left upper fistula) Social history: lives with family, full code Family history: no significant family history Medications and Allergies Allergies Allergy/AdvReac Type Severity Reaction Status Date / Time No Known Allergies Allergy Verified 08/25/21 09:27 Home Medications Medication Instructions Recorded Confirmed Last Taken Type amLODIPine 10 mg PO DAILY #30 tablet 01/31/20 08/25/21 Unknown Rx Glimepiride 1 mg PO QDAY #30 tablet 04/21/20 08/25/21 Unknown Rx Diclofenac 1% [Diclofenac 1% 2 - 4 gm TP QID 08/12/21 08/25/21 Unknown History topical gel] Gabapentin 300 mg PO BID 08/12/21 08/25/21 Unknown History Mirtazapine [Remeron 15mg TAB] 15 mg PO QHS 08/12/21 08/25/21 Unknown History cloNIDine [Catapres] 0.1 mg PO BID 08/12/21 08/25/21 Unknown History Famotidine [Pepcid] 20 mg PO QAM #30 tablet 08/17/21 08/25/21 Unknown Rx Zinc Sulfate [Zinc] 220 mg PO BID #30 08/17/21 08/25/21 Unknown Rx Active Meds: Active Medications Acetaminophen (Acetaminophen 325 Mg Tab) 650 mg PO Q6H PRN PRN Reason: Pain MILD(1-3)/Fever >100.5/MEHTA Albuterol (Albuterol 2.5 Mg/3 Ml Nebu) 2.5 mg IH Q3HRT PRN PRN Reason: Shortness Of Breath Amlodipine Besylate (Amlodipine 10 Mg Tab) 10 mg PO QDAY [facility] Last Admin: 08/27/21 12:49 Dose: 10 mg Budesonide (Budesonide 0.5 Mg/2 Ml Nebu) 0.5 mg IH Q12HRT [facility] Last Admin: 08/27/21 07:28 Dose: 0.5 mg Clonidine HCl (Clonidine 0.1 Mg Tab) 0.1 mg PO BID [facility] Last Admin: 08/27/21 12:50 Dose: 0.1 mg Dextrose (Dextrose 10% *Hypoglycemia) 0 ml IV PRN PRN PRN Reason: Hypoglycemia Last Admin: 08/20/21 11:28 Dose: 50 ml Famotidine (Famotidine 20 Mg Tab) 20 mg PO QAM [facility] Last Admin: 08/27/21 12:49 Dose: 20 mg Heparin Sodium (Porcine) (Heparin 5,000 Unit/1 Ml Vial) 5,000 unit SUB-Q Q8HR [facility] Last Admin: 08/27/21 14:00 Dose: 5,000 unit Meropenem/Sodium Chloride (Merrem/Ns 1 Gram/100 Ml) 1 gram in 100 mls @ 100 mls/hr IV QPM [facility]; Protocol Stop: 08/28/21 18:59 Last Admin: 08/26/21 19:16 Dose: 100 mls/hr Sodium Chloride (Nacl 0.9%) 100 mls @ 999 mls/hr IV LEVI PRN PRN Reason: Hypotension Insulin Human Lispro (Insulin Lispro 100 Unit/Ml) 0 unit SUB-Q Q6HR [facility]; Protocol Last Admin: 08/27/21 12:00 Dose: Not Given Labetalol HCl (Labetalol 20 Mg/4 Ml Inj) 10 mg IV Q4H PRN PRN Reason: Hypertension Last Admin: 08/25/21 12:16 Dose: 10 mg Mirtazapine (Mirtazapine 15 Mg Tab) 15 mg PO QHS PRN PRN Reason: Sleep Naloxone HCl (Naloxone 0.4 Mg/1 Ml Inj) 0.1 mg IV Q2MIN PRN PRN Reason: Res Rate </= 8 or 02 SAT < 92% Paricalcitol (Paricalcitol 2 Mcg/1 Ml Inj) 2 mcg IV LEVI PRN PRN Reason: hemodialysis Last Admin: 08/24/21 17:56 Dose: 2 mcg Senna (Sennosides Oral Liqd 8.8 Mg/5 Ml Oral Liqd) 17.6 mg PO QHS [facility] Last Admin: 08/26/21 22:45 Dose: Not Given Simple Syrup (Simple Syrup 15 Ml) 30 ml FEEDTUBE PRN PRN PRN Reason: Hypoglycemia Last Admin: 08/20/21 03:48 Dose: 30 ml Sodium Chloride (Sodium Chloride 0.9% 10 Ml Flush Syringe) 10 ml IV BID [facility] Last Admin: 08/27/21 12:50 Dose: 10 ml Sodium Chloride (Sodium Chloride 0.9% 10 Ml Flush Syringe) 10 ml IV PRN PRN PRN Reason: LINE FLUSH Review of Systems ROS unobtainable: due to mental status All systems: negative (No clear complaints. Limited by patient's mental status and language barrier) Exam - Constitutional Vitals: Temp Pulse Resp BP Pulse Ox 98.6 F 82 22 176/60 94 08/27/21 11:45 08/27/21 12:49 08/27/21 11:45 08/27/21 12:49 08/27/21 11:45 General appearance: Present: no acute distress, other (Has Dobbhoff in place, regards me appropriately.) - EENT Eyes: Present: PERRL, EOM intact ENT: hearing intact - Respiratory Respiratory effort: normal Respiratory: bilateral: CTA (Anteriorly) - Cardiovascular Rhythm: regular Heart Sounds: Present: S1 & S2 - Abdominal General gastrointestinal: Present: soft, non-tender Results - Labs CBC & Chem 7: 08/26/21 04:31 08/27/21 08:08 Labs: Abnormal lab results 08/26/21 08/27/21 Range/Units 16:01 08:08 BUN 23 H (7-17) mg/dL Creatinine 2.2 H (0.6-1.2) mg/dL POC Glucose 157 H (70-105) mg/dL Assessment and Plan 1. Nutritional support -patient's family does not desire G-tube placement unless necessary. There is a question of recurrent hypoglycemia, but patient may be on glimepiride at home, and this should be discontinued. I explained to the patient's granddaughter that if patient starts becoming hypoglycemic, oral management with sugar, etc., should be effective. -Verify safety of swallowing -If so, advance diet
--- NOTE | 2021-08-27 16:42 | Progress Note ---
Assessment and Plan Assessment and plan: This is a 86-year-old female with HTN, DM, ESRD on HD, recent hospitalization Covid pneumonia admitted with severe hypoglycemia and acute hypoxic respiratory failure requiring ventilatory support #Acute metabolic encephalopathyresolved -Likely related to severe hypoglycemia -CT head with no acute findings, remote lacunar infarct, generalized atrophy and microvascular ischemia -Continue home Remeron -Avoid delirium -Maintain sleep-wake cycle #NSTEMI #H/o CHF with preserved EF #Hypertension -Cardiology consulted, appreciate recommendations -Echocardiogram shows EF of 40 to 45% -Continue home amlodipine and clonidine -Blood pressure monitor per protocol -Per cardiology due to decrease in EF will consider outpatient ischemic evaluation when patient is clinically stable -Per cardiology: -Echo 08/19/2021-EF 40 to 45%. Mild concentric LVH. Doppler flow pattern suggests impaired LV relaxation. Right ventricular systolic function is normal. Echo bright density suspected in the right atrium. Moderate aortic stenosis. Highest mean aortic valve gradient is 21.6 mmHg. Mild aortic regurgitation. Mitral valve leaflets are thickened. Mitral valve leaflets are calcified. Moderate mitral regurgitation - Echo03/2020 -Moderate concentric left ventricular hypertrophy.Left ventricular ejection fraction is 60-65%. There is moderately increased filling pressure consistent with grade 2 diastolic dysfunction. Aortic valve is tricuspid, sclerotic and focally calcified. Mild aortic stenosis. Mild to moderate aortic valve insufficiency. The left ventricular size is small. The aortic valve max velocity is 2.57 m/s. The peak gradient is 26.4 mmHg with a mean gradient of 16.0 mmHg, the left ventricle outflow tract measures 2.00 cm. CORNELIA (VTI) is 1.08 cm. Mild mitral valve regurgitation.Normal right ventricular size and wall thickness. There is small pleural effusion in the left lateral region. There is small pleural effusion in the right lateral region.No pericardial effusion seen. -Lexiscan MPI stress test 05/14/2019-normal myocardial perfusion without evidence of ischemia or prior infarction #Acute hypoxic respiratory failureresolved -Intubated in the emergency department for airway protection on 08/19 with a 7.00 ETT and extubated 08/25 -CCM consulted, appreciate recommendations #Severe protein calorie malnutrition -Nutrition consult for tube feeding #ESRD on HD #Hyponatremiaresolved -Nephrology consulted, appreciate recommendations -Hemodialysis per nephrology (MWF or as needed) -Avoid nephrotoxic medications and renally dose medications -Monitor and replace electrolytes as needed #Sepsishold #COVID-19 pneumoniaresolved #Leukocytosisresolved -COVID-19 PCR positive -Infectious disease consulted, appreciate recommendations -Contact/droplet precautions -Not a candidate for remdesivir due to ESRD -IV antibiotic therapy: Meropenem, renally dose vancomycin -Trend COVID-19 inflammatory markers -CRP 10.6 #Anemia of chronic disease -Epogen per nephrology -Transfuse hemoglobin less than 7 -S/p 1 unit PRBC #Severe hypoglycemiaresolved -S/p D10 drip -Avoid hypoglycemia -Accu-Cheks every 6 #Advanced care planning -Disease education conducted, care plan discussed, diagnoses discussed, prognosis discussed, and patient acknowledges understanding with care plan -Time: +30 min #Discharge planning - Patient is pending swallow evaluation to determine if PEG is necessary - Case management has been made aware. - Discharge is tentatively 24-48 hours Disposition Plan: Continue medical management Total Time Spent with Patient (Minutes): 35 minutes History Interval history: No acute events overnight. Hospitalist Physical - Constitutional Vitals: Temp Pulse Resp BP Pulse Ox 98.6 F 82 22 176/60 94 08/27/21 11:45 08/27/21 12:49 08/27/21 11:45 08/27/21 12:49 08/27/21 11:45 General appearance: Present: no acute distress, other (Has Dobbhoff in place, regards me appropriately.) - EENT Eyes: Present: PERRL, EOM intact ENT: hearing intact, clear oral mucosa, other (Dobbhoff in place) - Neck Neck: Present: supple, normal ROM - Respiratory Respiratory effort: normal Respiratory: bilateral: diminished - Cardiovascular Rhythm: regular Heart Sounds: Present: S1 & S2 - Extremities Extremities: no ischemia, pulses intact, pulses symmetrical, No edema, normal temperature, normal color Peripheral Pulses: within normal limits - Abdominal General gastrointestinal: soft, non-tender, non-distended, normal bowel sounds - Integumentary Integumentary: Present: clear, warm, dry - Psychiatric Psychiatric: cooperative - Neurologic Neurologic: CNII-XII intact - Allied Health Allied health notes reviewed: nursing HEART Score - HEART Score Troponin: Troponin T 0.042 ng/mL (0.00-0.029) H 08/19/21 04:53 Results - Labs CBC & Chem 7: 08/26/21 04:31 08/27/21 08:08 Labs: Laboratory Last Values WBC 9.8 K/mm3 (4.5-11.0) 08/26/21 04:31 RBC 2.92 M/mm3 (3.65-5.03) L 08/26/21 04:31 Hgb 9.0 gm/dl (10.1-14.3) L 08/26/21 04:31 Hct 26.5 % (30.3-42.9) L 08/26/21 04:31 MCV 91 fl (79-97) 08/26/21 04:31 MCH 31 pg (28-32) 08/26/21 04:31 MCHC 34 % (30-34) 08/26/21 04:31 RDW 20.5 % (13.2-15.2) H 08/26/21 04:31 Plt Count 321 K/mm3 (140-440) 08/26/21 04:31 Lymph % (Auto) 9.9 % (13.4-35.0) L 08/20/21 04:15 [place] % (Auto) 4.5 % (0.0-7.3) 08/20/21 04:15 Eos % (Auto) 2.8 % (0.0-4.3) 08/20/21 04:15 Baso % (Auto) 0.4 % (0.0-1.8) 08/20/21 04:15 Lymph # (Auto) 1.4 K/mm3 (1.2-5.4) 08/20/21 04:15 [place] # (Auto) 0.7 K/mm3 (0.0-0.8) 08/20/21 04:15 Eos # (Auto) 0.4 K/mm3 (0.0-0.4) 08/20/21 04:15 Baso # (Auto) 0.1 K/mm3 (0.0-0.1) 08/20/21 04:15 Add Manual Diff Complete 08/21/21 04:46 Total Counted 100 08/21/21 04:46 Seg Neutrophils % Field Examiner 08/21/21 04:46 Seg Neuts % (Manual) 97.0 % (40.0-70.0) H 08/21/21 04:46 Band Neutrophils % 0 % 08/21/21 04:46 Lymphocytes % (Manual) 1.0 % (13.4-35.0) L 08/21/21 04:46 Reactive Lymphs % (Man) 0 % 08/21/21 04:46 Monocytes % (Manual) 2.0 % (0.0-7.3) 08/21/21 04:46 Eosinophils % (Manual) 0 % (0.0-4.3) 08/21/21 04:46 Basophils % (Manual) 0 % (0.0-1.8) 08/21/21 04:46 Metamyelocytes % 0 % 08/21/21 04:46 Myelocytes % 0 % 08/21/21 04:46 Promyelocytes % 0 % 08/21/21 04:46 Blast Cells % 0 % 08/21/21 04:46 Nucleated RBC % Not Reportable 08/21/21 04:46 Seg Neutrophils # 12.0 K/mm3 (1.8-7.7) H 08/20/21 04:15 Seg Neutrophils # Man 23.2 K/mm3 (1.8-7.7) H 08/21/21 04:46 Band Neutrophils # 0.0 K/mm3 08/21/21 04:46 Lymphocytes # (Manual) 0.2 K/mm3 (1.2-5.4) L 08/21/21 04:46 Abs React Lymphs (Man) 0.0 K/mm3 08/21/21 04:46 Monocytes # (Manual) 0.5 K/mm3 (0.0-0.8) 08/21/21 04:46 Eosinophils # (Manual) 0.0 K/mm3 (0.0-0.4) 08/21/21 04:46 Basophils # (Manual) 0.0 K/mm3 (0.0-0.1) 08/21/21 04:46 Metamyelocytes # 0.0 K/mm3 08/21/21 04:46 Myelocytes # 0.0 K/mm3 08/21/21 04:46 Promyelocytes # 0.0 K/mm3 08/21/21 04:46 Blast Cells # 0.0 K/mm3 08/21/21 04:46 WBC Morphology Not Reportable 08/21/21 04:46 Hypersegmented Neuts Not Reportable 08/21/21 04:46 Hyposegmented Neuts Not Reportable 08/21/21 04:46 Hypogranular Neuts Not Reportable 08/21/21 04:46 Smudge Cells Not Reportable 08/21/21 04:46 Toxic Granulation Not Reportable 08/21/21 04:46 Toxic Vacuolation Not Reportable 08/21/21 04:46 Dohle Bodies Not Reportable 08/21/21 04:46 Pelger-Huet Anomaly Not Reportable 08/21/21 04:46 Dhara Rods Not Reportable 08/21/21 04:46 Platelet Estimate Consistent w auto 08/21/21 04:46 Clumped Platelets Not Reportable 08/21/21 04:46 Plt Clumps, EDTA Not Reportable 08/21/21 04:46 Large Platelets Not Reportable 08/21/21 04:46 Giant Platelets Not Reportable 08/21/21 04:46 Platelet Satelliting Not Reportable 08/21/21 04:46 Plt Morphology Comment Not Reportable 08/21/21 04:46 RBC Morphology Not Reportable 08/21/21 04:46 Dimorphic RBCs Not Reportable 08/21/21 04:46 Polychromasia Few 08/21/21 04:46 Hypochromasia 1+ 08/21/21 04:46 Poikilocytosis Not Reportable 08/21/21 04:46 Anisocytosis 1+ 08/21/21 04:46 Microcytosis Not Reportable 08/21/21 04:46 Macrocytosis Not Reportable 08/21/21 04:46 Spherocytes Not Reportable 08/21/21 04:46 Pappenheimer Bodies Not Reportable 08/21/21 04:46 Sickle Cells Not Reportable 08/21/21 04:46 Target Cells Not Reportable 08/21/21 04:46 Tear Drop Cells Not Reportable 08/21/21 04:46 Ovalocytes Not Reportable 08/21/21 04:46 Helmet Cells Not Reportable 08/21/21 04:46 [place] Bodies Not Reportable 08/21/21 04:46 [place] Rings Not Reportable 08/21/21 04:46 [place] Cells Not Reportable 08/21/21 04:46 Bite Cells Not Reportable 08/21/21 04:46 Crenated Cell Not Reportable 08/21/21 04:46 Elliptocytes Not Reportable 08/21/21 04:46 Acanthocytes (Spur) Not Reportable 08/21/21 04:46 Rouleaux Not Reportable 08/21/21 04:46 Hemoglobin C Crystals Not Reportable 08/21/21 04:46 Schistocytes Not Reportable 08/21/21 04:46 Malaria parasites Not Reportable 08/21/21 04:46 Keshav Bodies Not Reportable 08/21/21 04:46 Hem Pathologist Commnt No 08/21/21 04:46 PT 15.6 Sec. (12.2-14.9) H 08/19/21 04:53 INR 1.12 (0.87-1.13) 08/19/21 04:53 APTT 30.3 Sec. (24.2-36.6) 08/19/21 04:53 D-Dimer 2539.68 ng/mlDDU (0-234) H 08/26/21 04:31 ABG pH 7.453 pH Units (7.350-7.450) H 08/25/21 10:30 ABG pCO2 42.8 mm Hg 08/25/21 10:30 ABG pO2 98.5 mm Hg (80.0-90.0) H 08/25/21 10:30 ABG HCO3 29.2 mmol/L (20.0-26.0) H 08/25/21 10:30 ABG O2 Saturation 97.6 % (95.0-99.0) 08/25/21 10:30 ABG O2 Content 15.1 (0.0-44) 08/25/21 10:30 ABG Base Excess 4.8 mmol/L (-2.0-3.0) H 08/25/21 10:30 ABG Hemoglobin 11.2 gm/dl (12.0-16.0) L 08/25/21 10:30 ABG Carboxyhemoglobin 1.6 % (0.0-5.0) 08/25/21 10:30 ABG Methemoglobin 0.5 % (0.0-1.5) 08/25/21 10:30 Oxyhemoglobin 95.5 % (95.0-99.0) 08/25/21 10:30 FiO2 30 % 08/25/21 10:30 Sodium 137 mmol/L (137-145) 08/27/21 08:08 Potassium 3.8 mmol/L (3.6-5.0) 08/27/21 08:08 Chloride 100.3 mmol/L (98-107) 08/27/21 08:08 Carbon Dioxide 26 mmol/L (22-30) 08/27/21 08:08 Anion Gap 15 mmol/L 08/27/21 08:08 BUN 23 mg/dL (7-17) H 08/27/21 08:08 Creatinine 2.2 mg/dL (0.6-1.2) H 08/27/21 08:08 Estimated GFR 21 ml/min 08/27/21 08:08 BUN/Creatinine Ratio 10 % 08/27/21 08:08 Glucose 86 mg/dL (65-100) 08/27/21 08:08 POC Glucose 77 mg/dL (70-105) 08/27/21 11:42 Lactic Acid 3.40 mmol/L (0.7-2.0) H* 08/20/21 04:15 Calcium 8.5 mg/dL (8.4-10.2) 08/27/21 08:08 Phosphorus 2.80 mg/dL (2.5-4.5) 08/26/21 04:31 Magnesium 2.20 mg/dL (1.7-2.3) 08/26/21 04:31 Ferritin > 2000.0 ng/mL (10.0-200.0) H 08/26/21 04:31 Total Bilirubin 0.30 mg/dL (0.1-1.2) 08/20/21 04:15 AST 17 units/L (5-40) 08/20/21 04:15 ALT 7 units/L (7-56) 08/20/21 04:15 Alkaline Phosphatase 85 units/L (35-129) 08/20/21 04:15 Ammonia 10.0 umol/L (25-60) L 08/19/21 04:53 Lactate Dehydrogenase 194 units/L (91-180) H 08/26/21 04:31 Total Creatine Kinase 105 units/L (30-135) 08/19/21 04:53 CK-MB (CK-2) 1.1 ng/mL (0.0-4.0) 08/19/21 04:53 CK-MB (CK-2) Rel Index 1.0 (0-4) 08/19/21 04:53 Troponin T 0.042 ng/mL (0.00-0.029) H 08/19/21 04:53 C-Reactive Protein 9.10 mg/dL (0.00-1.30) H 08/26/21 04:31 NT-Pro-B Natriuret Pep 58583 pg/mL (0-900) H 08/19/21 06:01 Total Protein 4.9 g/dL (6.3-8.2) L 08/20/21 04:15 Albumin 2.6 g/dL (3.9-5) L 08/20/21 04:15 Albumin/Globulin Ratio 1.1 % 08/20/21 04:15 Triglycerides 122 mg/dL (2-149) 08/19/21 04:53 Cholesterol 160 mg/dL (50-199) 08/19/21 04:53 LDL Cholesterol Direct 88 mg/dL (50-130) 08/19/21 04:53 HDL Cholesterol 47 mg/dL (40-59) 08/19/21 04:53 Cholesterol/HDL Ratio 3.40 % 08/19/21 04:53 TSH 4.850 mlU/mL (0.270-4.200) H 08/19/21 08:30 Random Vancomycin 13.9 ug/mL (0-40.0) 08/26/21 04:31 Coronavirus (PCR) Positive (Negative) A 08/19/21 Unknown Blood Type O POSITIVE 08/24/21 06:41 Antibody Screen Negative 08/24/21 06:41 Crossmatch See Detail 08/24/21 06:41 [place]/IV: Voiding Method Incontinent Active Medications - Current Medications Current Medications: Generic Name Dose Route Start Last Admin Trade Name Freq PRN Reason Stop Dose Admin Acetaminophen 650 mg 08/19/21 10:00 Acetaminophen 325 Mg Tab PO Q6H PRN Pain MILD(1-3)/Fever >100.5/MEHTA Albuterol 2.5 mg 08/19/21 11:00 Albuterol 2.5 Mg/3 Ml Nebu IH Q3HRT PRN Shortness Of Breath Amlodipine Besylate 10 mg 08/23/21 10:00 08/27/21 12:49 Amlodipine 10 Mg Tab PO 10 mg QDAY ANAHY Administration Budesonide 0.5 mg 08/19/21 20:00 08/27/21 07:28 Budesonide 0.5 Mg/2 Ml Nebu IH 0.5 mg Q12HRT ANAHY Administration Clonidine HCl 0.1 mg 08/24/21 10:00 08/27/21 12:50 Clonidine 0.1 Mg Tab PO 0.1 mg BID ANAHY Administration Dextrose 0 ml 08/19/21 09:30 08/20/21 11:28 Dextrose 10% *Hypoglycemia IV 50 ml PRN PRN Administration Hypoglycemia Famotidine 20 mg 08/19/21 10:00 08/27/21 12:49 Famotidine 20 Mg Tab PO 20 mg QAM ANAHY Administration Heparin Sodium (Porcine) 5,000 unit 08/19/21 11:00 08/27/21 14:00 Heparin 5,000 Unit/1 Ml Vial SUB-Q 5,000 unit Q8HR ANAHY Administration Meropenem/Sodium Chloride 1 gram in 100 mls @ 100 mls/hr 08/21/21 18:00 08/26/21 19:16 Merrem/Ns 1 Gram/100 Ml IV 08/28/21 18:59 100 mls/hr QPM ANAHY Administration Protocol Sodium Chloride 100 mls @ 999 mls/hr 08/24/21 10:50 Nacl 0.9% IV LEVI PRN Hypotension Insulin Human Lispro 0 unit 08/19/21 12:00 08/27/21 12:00 Insulin Lispro 100 Unit/Ml SUB-Q Not Given Q6HR [facility] Protocol Labetalol HCl 10 mg 08/23/21 12:17 08/25/21 12:16 Labetalol 20 Mg/4 Ml Inj IV 10 mg Q4H PRN Administration Hypertension Mirtazapine 15 mg 08/20/21 10:02 Mirtazapine 15 Mg Tab PO QHS PRN Sleep Naloxone HCl 0.1 mg 08/19/21 09:30 Naloxone 0.4 Mg/1 Ml Inj IV Q2MIN PRN Res Rate </= 8 or 02 SAT < 92% Paricalcitol 2 mcg 08/24/21 10:50 08/24/21 17:56 Paricalcitol 2 Mcg/1 Ml Inj IV 2 mcg LEVI PRN Administration hemodialysis Senna 17.6 mg 08/20/21 22:00 08/26/21 22:45 Sennosides Oral Liqd 8.8 Mg/5 Ml Oral Liqd PO Not Given QHS ANAHY Simple Syrup 30 ml 08/19/21 17:44 08/20/21 03:48 Simple Syrup 15 Ml FEEDTUBE 30 ml PRN PRN Administration Hypoglycemia Sodium Chloride 10 ml 08/19/21 10:00 08/27/21 12:50 Sodium Chloride 0.9% 10 Ml Flush Syringe IV 10 ml BID ANAHY Administration Sodium Chloride 10 ml 08/19/21 09:30 Sodium Chloride 0.9% 10 Ml Flush Syringe IV PRN PRN LINE FLUSH Nutrition/Malnutrition Assess - Dietary Evaluation Nutrition/Malnutrition Findings: Nutrition Notes Start: 08/19/21 14:18 Freq: Status: Active Protocol: Document 08/22/21 17:21 MIGUEL ANGEL (Rec: 08/22/21 17:31 MIGUEL ANGEL [id number]) Nutrition Notes Initial or Follow up Brief Note Current Diet NPO. TF-Nepro w/CARBSTEADY @ 28 ml/hr (from D 08/19). Height 5 ft 2 in Weight 74.843 kg [place] Body Weight (kg) 50.00 BMI 30.2 Weight change and time frame No body weight change reported in 3 days. Weight Status Overweight Subjective/Other Information RD consult for routine F/U on TF tolerance. Pt continues on Mechanical Ventilation. TF continues as prescribed, with adjustment on the Flush quantity recommended. Percent of energy/protein needs met: Prescribed TF-Nepro w/ CARBSTEADY @ 28 ml/hr provides for energy/protein needs (1, 197 Kcal/54 g) during LOS, 100 % Kcal; 86% AA. #1 Nutrition Diagnosis Inadequate oral intake Diagnosis Progress(for reassessment Continues documentation) Is patient on ventilator? Yes Is Patient Ambulatory and/or Out of Bed No REE-([facility]-confined to bed) 1389.180 Kcal/Kg value to use for calculation 16 Approximate Energy Requirements Using 1197 kcal/Kg Calculation Used for Recommendations Kcal/kg Additional Notes Protein: 1-1.2 g/Kg; 63-76 g/ day. Fluids: 1 ml/Kcal, or as per MD. Nutrition Intervention Nutrition Support: Nepro w/CARBSTEADY @ 28 ml/hr. Flush: 100 ml water Q 4 hr, or as per MD. Kcal 1,197 Protein (gm) 54 Carbohydrates (gm) 107 Fat (gm) 64 Fluid (mL) 485 Fiber (gm) 8 % RDI: 100% Kcal; 86% AA. Goal #1 Provide at least 75% of energy /protein needs through Enteral Feeding during LOS. Goal #2 Maintain body weight within +/ -3% of admission body weight during LOS. Follow-Up By: 08/28/21 Additional Comments Continue monitoring TF tolerance and BM.
[2021-08-27] MEDS: MEROPENEM/NS 1 GRAM/100 ML 1 GRAM/100 ML BAG IV SCH (17:01)
[2021-08-27] MEDS: SENNOSIDES ORAL LIQD 8.8 MG/5 ML ORAL LIQD PO SCH (21:51)
[2021-08-28] MEDS: INSULIN LISPRO 100 UNIT/ML SUB-Q SCH ×4 (00:11→17:36)
[2021-08-28] MEDS: HEPARIN 5,000 UNIT/1 ML VIAL SUB-Q SCH ×3 (06:11→21:01)
[2021-08-28] MEDS: BUDESONIDE 0.5 MG/2 ML NEBU IH SCH ×2 (07:26→23:57)
[2021-08-28 08:48] LABS: C-Reactive Protein 6.8 mg/dL (0.00-1.30); Calcium 8.5 mg/dL (8.4-10.2)
[2021-08-28] MEDS: cloNIDine 0.1 MG TAB PO SCH ×2 (09:20→21:02)
[2021-08-28] MEDS: amLODIPine 10 MG TAB PO SCH (09:20)
[2021-08-28] MEDS: FAMOTIDINE 20 MG TAB PO SCH (09:21)
--- NOTE | 2021-08-28 10:43 | Discharge Summary ---
Providers - Providers Date of Admission: 08/19/21 08:36 Date of discharge: 08/28/21 Attending physician: BISMARK JONES MD 08/19/21 06:08 Consult to Physician [CONS] Urgent Comment: Dr. Claros spoke with Dr. Lemus @ [phone] Consulting Provider: CORTNEY LEMUS Physician Instructions: Reason For Exam: ams intubated 08/19/21 08:29 Consult to Physician [CONS] Routine Comment: Consulting Provider: YUDI WARREN Physician Instructions: Reason For Exam: ESRD 08/19/21 08:30 Consult to Physician [CONS] Routine Comment: Consulting Provider: SIGRID TRENT Physician Instructions: Reason For Exam: SEPSIS 08/19/21 08:34 Consult to Physician [CONS] Routine Comment: Consulting Provider: TERESA ATKINSON Physician Instructions: Reason For Exam: NSTEMI 2 08/19/21 08:36 Consult to Dietitian/Nutrition [CONS] Routine Physician Instructions: Reason For Exam: Reason for Consult: Write/Manage Tube Feeding 08/19/21 08:40 Consult to Case Management [CONS] Routine 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 stapleton/amira Consulting Provider: GRISELDA COLES Physician Instructions: Reason For Exam: peg placement 08/27/21 15:33 Speech Therapy Evaluation and Treat [CONS] Routine Reason For Exam: Assess swallowing for safety of po intake Primary care physician: FOOD BROKER Hospitalization Reason for admission: Acute hypoxic respiratory failure; acute metabolic encephalopathy Condition: Critical Pertinent studies: Reviewed. Procedures: Mechanical ventilation Hospital course: This is a 86-year-old female with DM, ESRD on HD, HTN, recent diagnosis of COVID-19 who presented to emergency department on 08/19 via EMS with hypoglycemia after being found unresponsive by the family and on scene her blood glucose was less than 20 and received D10 with EMS with improvement of blood glucose but remained unresponsive upon arrival to the emergency department. Patient was intubated for airway protection in the ED and lab work showed blood sugar of 599 for which she received insulin and recurrent blood sugar check was less than 10. Patient was admitted to the hospitalist service with acute hypoxic respirat ory failure, acute metabolic encephalopathy, hypoglycemia, sepsis due to possible aspiration, hypomagnesemia, severe protein calorie malnutrition with consults to CCM, ID and nephrology. Of note and recent admission to the hospital patient was noted to have decreased p.o. intake and seems family continued home antidiabetic regimen despite decreased p.o. intake. Patient was extubated on 08/25/2021. Detailed conversations were had with the family about the patient's overall prognosis, and the patient's family wants to continue with full CODE STATUS. The patient was transferred to the floor where she was evaluated by gastroenterology for possible PEG placement. At that point the family does not desire a PEG tube to be placed unless necessary. They were counseled on discontinuing glycemic lowering medications. Patient was evaluated by speech therapy who deemed the patient . During this hospitalization, there was concern for the patient having developed HCAP. Infectious disease was consulted and recommended continuing meropenem and vancomycin for a total of 8 days. The total antibiotic course will complete prior to discharge. The patient is medically cleared for discharge, and she will be returning home with her family. Disposition: 01 HOME / SELF CARE / HOMELESS Final Discharge Diagnosis (Prints w/discharge instructions): Acute metabolic encephalopathy, elevated troponin, hypertension, acute hypoxic respiratory failure, COVID-19 infection, severe protein caloric malnutrition, ESRD on hemodialysis, hyponatremia, anemia of chronic disease, severe hyperglycemia Time spent for discharge: 45 min Core Measure Documentation - Palliative Care Palliative Care/ Comfort Measures: Not Applicable - Core Measures Any of the following diagnoses?: history only Exam - Constitutional Vitals: Temp Pulse Resp BP Pulse Ox 100.6 F H 88 14 157/75 95 08/28/21 05:56 08/28/21 07:27 08/28/21 07:27 08/28/21 05:56 08/28/21 05:56 General appearance: Present: no acute distress, cachectic - EENT Eyes: Present: PERRL, EOM intact ENT: hearing intact, clear oral mucosa, edentulous - Neck Neck: Present: supple, normal ROM - Respiratory Respiratory effort: normal Respiratory: bilateral: diminished - Cardiovascular Rhythm: regular Heart Sounds: Present: S1 & S2 - Extremities Extremities: no ischemia, pulses intact, pulses symmetrical, No edema, normal temperature, normal color Peripheral Pulses: within normal limits - Abdominal General gastrointestinal: Present: soft, non-tender, non-distended, normal bowel sounds Female genitourinary: Present: deferred - Rectal Rectal Exam: deferred - Integumentary Integumentary: Present: clear, warm, dry - Psychiatric Psychiatric: cooperative - Neurologic Neurologic: CNII-XII intact - Allied Health Allied health notes reviewed: nursing Plan Activity: advance as tolerated Diet: diabetic Additional Instructions: This is a 86-year-old female with DM, ESRD on HD, HTN, recent diagnosis of COVID-19 who presented to emergency department on 08/19 via EMS with hypoglycemia after being found unresponsive by the family and on scene her blood glucose was less than 20 and received D10 with EMS with improvement of blood glucose but remained unresponsive upon arrival to the emergency department. Patient was intubated for airway protection in the ED and lab work showed blood sugar of 599 for which she received insulin and recurrent blood sugar check was less than 10. Patient was admitted to the hospitalist service with acute hypoxic respiratory failure, acute metabolic encephalopathy, hypoglycemia, sepsis due to possible aspiration, hypomagnesemia, severe protein calorie malnutrition with consults to CCM, ID and nephrology. Of note and recent admission to the hospital patient was noted to have decreased p.o. intake and seems family continued home antidiabetic regimen despite decreased p.o. intake. Patient was extubated on 08/25/2021. Detailed conversations were had with the family about the patient's overall prognosis, and the patient's family wants to continue with full CODE STATUS. The patient was transferred to the floor where she was evaluated by gastroenterology for possible PEG placement. At that point the family does not desire a PEG tube to be placed unless necessary. They were counseled on discontinuing glycemic lowering medications. During this hospitalization, there was concern for the patient having developed HCAP. Infectious disease was consulted and recommended continuing meropenem and vancomycin for a total of 8 days. The total antibiotic course will complete prior to discharge. The patient is medically cleared for discharge, and she will be returning home with her family. Care Plan Goals: Patient is medically cleared for discharge. Assessment: This is a 86-year-old female with DM, ESRD on HD, HTN, recent diagnosis of COVID-19 who presented to emergency department on 08/19 via EMS with hypoglycemia after being found unresponsive by the family and on scene her blood glucose was less than 20 and received D10 with EMS with improvement of blood glucose but remained unresponsive upon arrival to the emergency department. Patient was intubated for airway protection in the ED and lab work showed blood sugar of 599 for which she received insulin and recurrent blood sugar check was less than 10. Patient was admitted to the hospitalist service with acute hypoxic respiratory failure, acute metabolic encephalopathy, hypoglycemia, sepsis due to possible aspiration, hypomagnesemia, severe protein calorie malnutrition with consults to CCM, ID and nephrology. Of note and recent admission to the [facility] patient was noted to have decreased p.o. intake and seems family continued home antidiabetic regimen despite decreased p.o. intake. Patient was extubated on 08/25/2021. Detailed conversations were had with the family about the patient's overall prognosis, and the patient's family wants to continue with full CODE STATUS. The patient was transferred to the floor where she was evaluated by gastroenterology for possible PEG placement. At that point the family does not desire a PEG tube to be placed unless necessary. They were counseled on discontinuing glycemic lowering medications. During this hospitalization, there was concern for the patient having developed HCAP. Infectious disease was consulted and recommended continuing meropenem and vancomycin for a total of 8 days. The total antibiotic course will complete prior to discharge. The patient is medically cleared for discharge, and she will be returning home with her family. Follow up with: PRIMARY CAREMD [Primary Care Provider] - 3-5 Days
--- NOTE | 2021-08-28 12:05 | Progress Note ---
Assessment and Plan 1. Nutritional support -patient's family does not desire G-tube placement unless necessary. There is a question of recurrent hypoglycemia, but patient may be on glimepiride at home, and this should be discontinued. I explained to the patient's granddaughter that if patient starts becoming hypoglycemic, oral management with sugar, etc., should be effective. -Verification of safety of swallowing not done due to noncommunication, but per report from granddaughter yesterday, no problem. -Trial of diet, and may discharge Will sign off. Subjective Date of service: 08/28/21 Principal diagnosis: AHRF; Sepsis; Possible Aspiration; AMS; ESRD; HFpEF; Leukocytosis Interval history: Pt looks stable. Getting dialyzed. No complaints reported. Objective - Constitutional Vitals: Vital Signs - 12hr 08/28/21 08/28/21 05:56 07:27 Temperature 100.6 F H Pulse Rate 92 H Pulse Rate [ 88 Anterior Bilateral] Pulse Rate [ 88 Bilateral] Respiratory 20 Rate Respiratory 14 Rate [Anterior Bilateral] Respiratory 14 Rate [Bilateral ] Blood Pressure 157/75 O2 Sat by Pulse 95 Oximetry General appearance: Present: no acute distress - EENT Eyes: PERRL, EOM intact ENT: hearing intact - Gastrointestinal General gastrointestinal: Present: soft, non-tender - Labs CBC & Chem 7: 08/26/21 04:31 08/28/21 06:51 Labs: Abnormal lab results 08/28/21 08/28/21 08/28/21 Range/Units 06:51 06:51 06:51 D-Dimer 3539.01 H (0-234) ng/mlDDU Sodium 136 L (137-145) mmol/L BUN 35 H (7-17) mg/dL Creatinine 3.1 H (0.6-1.2) mg/dL Ferritin 3691.0 H (10.0-200.0) ng/mL Lactate Dehydrogenase 322 H (91-180) units/L C-Reactive Protein 6.80 H (0.00-1.30) mg/dL Medications & Allergies - Medications Allergies/Adverse Reactions: Allergies No Known Allergies Allergy (Verified 08/25/21 09:27) Home Medications: Home Medications Medication Instructions Recorded Confirmed Last Taken Type amLODIPine 10 mg PO DAILY #30 tablet 01/31/20 08/25/21 Unknown Rx Diclofenac 1% [Diclofenac 1% 2 - 4 gm TP QID 08/12/21 08/25/21 Unknown History topical gel] Gabapentin 300 mg PO BID 08/12/21 08/25/21 Unknown History Mirtazapine [Remeron 15mg TAB] 15 mg PO QHS 08/12/21 08/25/21 Unknown History cloNIDine [Catapres] 0.1 mg PO BID 08/12/21 08/25/21 Unknown History Famotidine [Pepcid] 20 mg PO QAM #30 tablet 08/17/21 08/25/21 Unknown Rx Zinc Sulfate [Zinc] 220 mg PO BID #30 08/17/21 08/25/21 Unknown Rx Active Medications: Generic Name Dose Route Start Last Admin Trade Name Freq PRN Reason Stop Dose Admin Acetaminophen 650 mg 08/19/21 10:00 08/28/21 06:17 Acetaminophen 325 Mg Tab PO 650 mg Q6H PRN Administration Pain MILD(1-3)/Fever >100.5/MEHTA Albuterol 2.5 mg 08/19/21 11:00 Albuterol 2.5 Mg/3 Ml Nebu IH Q3HRT PRN Shortness Of Breath Amlodipine Besylate 10 mg 08/23/21 10:00 08/28/21 09:20 Amlodipine 10 Mg Tab PO 10 mg QDAY ANAHY Administration Budesonide 0.5 mg 08/19/21 20:00 08/28/21 07:26 Budesonide 0.5 Mg/2 Ml Nebu IH 0.5 mg Q12HRT ANAHY Administration Clonidine HCl 0.1 mg 08/24/21 10:00 08/28/21 09:20 Clonidine 0.1 Mg Tab PO 0.1 mg BID ANAHY Administration Dextrose 0 ml 08/19/21 09:30 08/20/21 11:28 Dextrose 10% *Hypoglycemia IV 50 ml PRN PRN Administration Hypoglycemia Famotidine 20 mg 08/19/21 10:00 08/28/21 09:21 Famotidine 20 Mg Tab PO 20 mg QAM ANAHY Administration Heparin Sodium (Porcine) 5,000 unit 08/19/21 11:00 08/28/21 06:11 Heparin 5,000 Unit/1 Ml Vial SUB-Q 5,000 unit Q8HR ANAHY Administration Meropenem/Sodium Chloride 1 gram in 100 mls @ 100 mls/hr 08/21/21 18:00 17:01 Merrem/Ns 1 Gram/100 Ml IV 08/28/21 18:59 100 mls/hr QPM ANAHY Administration Protocol Sodium Chloride 100 mls @ 999 mls/hr 08/24/21 10:50 Nacl 0.9% IV LEVI PRN Hypotension Insulin Human Lispro 0 unit 08/19/21 12:00 08/28/21 06:11 Insulin Lispro 100 Unit/Ml SUB-Q Not Given Q6HR [facility] Protocol Labetalol HCl 10 mg 08/23/21 12:17 08/25/21 12:16 Labetalol 20 Mg/4 Ml Inj IV 10 mg Q4H PRN Administration Hypertension Mirtazapine 15 mg 08/20/21 10:02 Mirtazapine 15 Mg Tab PO QHS PRN Sleep Naloxone HCl 0.1 mg 08/19/21 09:30 Naloxone 0.4 Mg/1 Ml Inj IV Q2MIN PRN Res Rate </= 8 or 02 SAT < 92% Paricalcitol 2 mcg 08/24/21 10:50 08/24/21 17:56 Paricalcitol 2 Mcg/1 Ml Inj IV 2 mcg LEVI PRN Administration hemodialysis Senna 17.6 mg 08/20/21 22:00 08/27/21 21:51 Sennosides Oral Liqd 8.8 Mg/5 Ml Oral Liqd PO 17.6 mg QHS ANAHY Administration Simple Syrup 30 ml 08/19/21 17:44 08/20/21 03:48 Simple Syrup 15 Ml FEEDTUBE 30 ml PRN PRN Administration Hypoglycemia Sodium Chloride 10 ml 08/19/21 10:00 08/28/21 09:21 Sodium Chloride 0.9% 10 Ml Flush Syringe IV 10 ml BID ANAHY Administration Sodium Chloride 10 ml 08/19/21 09:30 Sodium Chloride 0.9% 10 Ml Flush Syringe IV PRN PRN LINE FLUSH HEART Score - HEART Score Troponin: Troponin T 0.042 ng/mL (0.00-0.029) H 08/19/21 04:53
[2021-08-28] MEDS: PARICALCITOL 2 MCG/1 ML INJ IV PRN (13:45)
--- NOTE | 2021-08-28 16:31 | Progress Note ---
Assessment and Plan Impression * End-stage renal disease on maintenance hemodialysis * Acute hypoxic respiratory failure * COVID-19 pneumonia * Hypokalemia * Hyponatremia * Anemia secondary to ESRD * Diabetes * Hypertension * Hypocalcemia Recommendations * Continue hemodialysis MWF or prn, due today * UF as tolerated * Dialysate adjusted prn, note Ca has improved on vitamin D analog * Maintain MAP>65 - pressors prn * Antibiotic therapy as per primary team and infectious diseases * Adjust diet and meds for ESRD state * Epogen with dialysis * No IV, BP or venipuncture in her access arm * Avoid nephrotoxins * Monitor fluid status and electrolytes closely * [facility] outpatient, COVID-19+ as of 08/19 Subjective Date of service: 08/28/21 Principal diagnosis: AHRF; Sepsis; Possible Aspiration; AMS; ESRD; HFpEF; Leukocytosis Interval history: Resting in bed, no acute issues issues noted Objective - Exam Narrative Exam: Patient not directly examined today due to COVID-19 pandemic, need to limit PPE overuse - Vital Signs Vital signs: Vital Signs - 12hr 08/28/21 08/28/21 08/28/21 05:56 07:27 10:45 Temperature 100.6 F H 98.0 F Pulse Rate 92 H 82 Pulse Rate [ 88 Anterior Bilateral] Pulse Rate [ 88 Bilateral] Respiratory 20 18 Rate Respiratory 14 Rate [Anterior Bilateral] Respiratory 14 Rate [Bilateral ] Blood Pressure 157/75 153/61 O2 Sat by Pulse 95 Oximetry O2 Sat by Pulse 97 Oximetry [ Anterior Bilateral] O2 Sat by Pulse 97 Oximetry [ Bilateral] 08/28/21 08/28/21 08/28/21 11:00 11:15 11:30 Temperature Pulse Rate 87 92 H 84 Pulse Rate [ Anterior Bilateral] Pulse Rate [ Bilateral] Respiratory Rate Respiratory Rate [Anterior Bilateral] Respiratory Rate [Bilateral ] Blood Pressure 169/100 151/98 109/86 O2 Sat by Pulse Oximetry O2 Sat by Pulse Oximetry [ Anterior Bilateral] O2 Sat by Pulse Oximetry [ Bilateral] 08/28/21 08/28/21 08/28/21 11:45 12:00 12:15 Temperature Pulse Rate 97 H 82 71 Pulse Rate [ Anterior Bilateral] Pulse Rate [ Bilateral] Respiratory Rate Respiratory Rate [Anterior Bilateral] Respiratory Rate [Bilateral ] Blood Pressure 119/53 113/74 179/46 O2 Sat by Pulse Oximetry O2 Sat by Pulse Oximetry [ Anterior Bilateral] O2 Sat by Pulse Oximetry [ Bilateral] 08/28/21 08/28/21 08/28/21 12:30 12:45 13:00 Temperature Pulse Rate 71 91 H 75 Pulse Rate [ Anterior Bilateral] Pulse Rate [ Bilateral] Respiratory Rate Respiratory Rate [Anterior Bilateral] Respiratory Rate [Bilateral ] Blood Pressure 176/82 180/89 169/98 O2 Sat by Pulse Oximetry O2 Sat by Pulse Oximetry [ Anterior Bilateral] O2 Sat by Pulse Oximetry [ Bilateral] 08/28/21 08/28/21 08/28/21 13:15 13:30 13:45 Temperature Pulse Rate 76 74 71 Pulse Rate [ Anterior Bilateral] Pulse Rate [ Bilateral] Respiratory Rate Respiratory Rate [Anterior Bilateral] Respiratory Rate [Bilateral ] Blood Pressure 131/48 130/80 110/51 O2 Sat by Pulse Oximetry O2 Sat by Pulse Oximetry [ Anterior Bilateral] O2 Sat by Pulse Oximetry [ Bilateral] 08/28/21 08/28/21 13:59 14:10 Temperature 98.4 F Pulse Rate 74 Pulse Rate [ Anterior Bilateral] Pulse Rate [ Bilateral] Respiratory 18 Rate Respiratory Rate [Anterior Bilateral] Respiratory Rate [Bilateral ] Blood Pressure 124/58 O2 Sat by Pulse 96 Oximetry O2 Sat by Pulse 97 Oximetry [ Anterior Bilateral] O2 Sat by Pulse 97 Oximetry [ Bilateral] - Lab 08/26/21 04:31 08/28/21 06:51 Most recent lab results ABG pH 7.453 pH Units (7.350-7.450) H 08/25/21 10:30 ABG pCO2 42.8 mm Hg 08/25/21 10:30 ABG pO2 98.5 mm Hg (80.0-90.0) H 08/25/21 10:30 ABG HCO3 29.2 mmol/L (20.0-26.0) H 08/25/21 10:30 ABG O2 Saturation 97.6 % (95.0-99.0) 08/25/21 10:30 Calcium 8.5 mg/dL (8.4-10.2) 08/28/21 06:51 Phosphorus 2.80 mg/dL (2.5-4.5) 08/26/21 04:31 Magnesium 2.20 mg/dL (1.7-2.3) 08/26/21 04:31 Medications & Allergies - Medications Allergies/Adverse Reactions: Allergies No Known Allergies Allergy (Verified 08/25/21 09:27) Home Medications: Home Medications Medication Instructions Recorded Confirmed Last Taken Type amLODIPine 10 mg PO DAILY #30 tablet 01/31/20 08/25/21 Unknown Rx Diclofenac 1% [Diclofenac 1% 2 - 4 gm TP QID 08/12/21 08/25/21 Unknown History topical gel] Gabapentin 300 mg PO BID 08/12/21 08/25/21 Unknown History Mirtazapine [Remeron 15mg TAB] 15 mg PO QHS 08/12/21 08/25/21 Unknown History cloNIDine [Catapres] 0.1 mg PO BID 08/12/21 08/25/21 Unknown History Famotidine [Pepcid] 20 mg PO QAM #30 tablet 08/17/21 08/25/21 Unknown Rx Zinc Sulfate [Zinc] 220 mg PO BID #30 08/17/21 08/25/21 Unknown Rx Active Medications: Generic Name Dose Route Start Last Admin Trade Name Freq PRN Reason Stop Dose Admin Acetaminophen 650 mg 08/19/21 10:00 08/28/21 06:17 Acetaminophen 325 Mg Tab PO 650 mg Q6H PRN Administration Pain MILD(1-3)/Fever >100.5/MEHTA Albuterol 2.5 mg 08/19/21 11:00 Albuterol 2.5 Mg/3 Ml Nebu IH Q3HRT PRN Shortness Of Breath Amlodipine Besylate 10 mg 08/23/21 10:00 08/28/21 09:20 Amlodipine 10 Mg Tab PO 10 mg QDAY ANAHY Administration Budesonide 0.5 mg 08/19/21 20:00 08/28/21 07:26 Budesonide 0.5 Mg/2 Ml Nebu IH 0.5 mg Q12HRT ANAHY Administration Clonidine HCl 0.1 mg 08/24/21 10:00 08/28/21 09:20 Clonidine 0.1 Mg Tab PO 0.1 mg BID ANAHY Administration Dextrose 0 ml 08/19/21 09:30 08/20/21 11:28 Dextrose 10% *Hypoglycemia IV 50 ml PRN PRN Administration Hypoglycemia Famotidine 20 mg 08/19/21 10:00 08/28/21 09:21 Famotidine 20 Mg Tab PO 20 mg QAM ANAHY Administration Heparin Sodium (Porcine) 5,000 unit 08/19/21 11:00 08/28/21 06:11 Heparin 5,000 Unit/1 Ml Vial SUB-Q 5,000 unit Q8HR ANAHY Administration Meropenem/Sodium Chloride 1 gram in 100 mls @ 100 mls/hr 08/21/21 18:00 08/27/21 17:01 Merrem/Ns 1 Gram/100 Ml IV 08/28/21 18:59 100 mls/hr QPM ANAHY Administration Protocol Sodium Chloride 100 mls @ 999 mls/hr 08/24/21 10:50 Nacl 0.9% IV LEVI PRN Hypotension Insulin Human Lispro 0 unit 08/19/21 12:00 08/28/21 06:11 Insulin Lispro 100 Unit/Ml SUB-Q Not Given Q6HR [facility] Protocol Labetalol HCl 10 mg 08/23/21 12:17 08/25/21 12:16 Labetalol 20 Mg/4 Ml Inj IV 10 mg Q4H PRN Administration Hypertension Mirtazapine 15 mg 08/20/21 10:02 Mirtazapine 15 Mg Tab PO QHS PRN Sleep Naloxone HCl 0.1 mg 08/19/21 09:30 Naloxone 0.4 Mg/1 Ml Inj IV Q2MIN PRN Res Rate </= 8 or 02 SAT < 92% Paricalcitol 2 mcg 08/24/21 10:50 08/28/21 13:45 Paricalcitol 2 Mcg/1 Ml Inj IV 2 mcg LEVI PRN Administration hemodialysis Senna 17.6 mg 08/20/21 22:00 08/27/21 21:51 Sennosides Oral Liqd 8.8 Mg/5 Ml Oral Liqd PO 17.6 mg QHS ANAHY Administration Simple Syrup 30 ml 08/19/21 17:44 08/20/21 03:48 Simple Syrup 15 Ml FEEDTUBE 30 ml PRN PRN Administration Hypoglycemia Sodium Chloride 10 ml 08/19/21 10:00 08/28/21 09:21 Sodium Chloride 0.9% 10 Ml Flush Syringe IV 10 ml BID ANAHY Administration Sodium Chloride 10 ml 08/19/21 09:30 Sodium Chloride 0.9% 10 Ml Flush Syringe IV PRN PRN LINE FLUSH
[2021-08-28] MEDS: MEROPENEM/NS 1 GRAM/100 ML 1 GRAM/100 ML BAG IV SCH (17:32)
--- NOTE | 2021-08-28 19:49 | Progress Note ---
Assessment and Plan Patient is an 86-year-old female with past medical history of diabetes mellitus, end-stage renal disease on hemodialysis, hypertension, recent diagnosis of COVID-19 as well as initial presentation to the hospital with hypoglycemia who presents to the hospital after family found the patient unresponsive timeline is unclear EMS did note that the patient's blood sugar was less than 20. The records are not quite clear to me at this time as it appears the patient received D10 at some point with blood sugar in improving to 200 however the patient remained unresponsive and on arrival to the ED patient was intubated as it was determined that she could not control her airway. Further events including initial lab work showing a blood sugar of 599 and subsequently patient received insulin with a recurrent recheck in blood sugar showing less than 10. Patient intubated and placed on mechanical ventilation for severe hypoglycemia with acute metabolic encephalopathy and inability to protect her airway. Patient also positive for Win virus infection Patients hypoglycemia corrected. Patient eventually extubated. Patient Transfered to medical floor. Patient sleeping at this time. Opening eyes on verbal stimulation. Patient is on room air. O2 saturation 96%. Patient afebrile. No Leukocytosis. Blood pressure 124/58, pulse 96, respirations 19. Chest xray done 08/24/21 reported Improving airspace disease. Patient is on albuterol/budesonide aerosol treatments, S/C Heparin and Famotidine. - Patient Problems (1) Acute respiratory failure with hypoxia Current Visit: No Status: Acute Plan to address problem: Patient intubated and extubated. Patient presently on room air. O2 saturation 96% Continue albuterol/ Budesonide aerosol treatments. Continue S/C Heparin. Continue Famotidine. (2) Acute encephalopathy Current Visit: Yes Status: Acute Plan to address problem: Management as per primary care. (3) COVID-19 Current Visit: Yes Status: Acute Plan to address problem: Management as per infectious diseases. (4) Hypertension Current Visit: No Status: Chronic Qualifiers: Hypertension type: essential hypertension Plan to address problem: Management as per primary care. 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 Subjective Date of service: 08/28/21 Principal diagnosis: AHRF; Sepsis; Possible Aspiration; AMS; ESRD; HFpEF; Leukocytosis Interval history: Patient is an 86-year-old female with past medical history of diabetes mellitus, end-stage renal disease on hemodialysis, hypertension, recent diagnosis of COVID-19 as well as initial presentation to the hospital with hypoglycemia who presents to the hospital after family found the patient unresponsive timeline is unclear EMS did note that the patient's blood sugar was less than 20. The records are not quite clear to me at this time as it appears the patient received D10 at some point with blood sugar in improving to 200 however the patient remained unresponsive and on arrival to the ED patient was intubated as it was determined that she could not control her airway. Further events including initial lab work showing a blood sugar of 599 and subsequently patient received insulin with a recurrent recheck in blood sugar showing less than 10. Patient intubated and placed on mechanical ventilation for severe hypoglycemia with acute metabolic encephalopathy and inability to protect her airway. Patient also positive for Win virus infection Patients hypoglycemia corrected. Patient eventually extubated. Patient Transfered to medical floor. Patient sleeping at this time. Opening eyes on verbal stimulation. Patient is on room air. O2 saturation 96%. Patient afebrile. No Leukocytosis. Blood pressure 124/58, pulse 96, respirations 19. Chest xray done 08/24/21 reported Improving airspace disease. Patient is on albuterol/budesonide aerosol treatments, S/C Heparin and Famotidine. Objective Vital Signs - 12hr 08/28/21 08/28/21 08/28/21 10:45 11:00 11:15 Temperature 98.0 F Pulse Rate 82 87 92 H Respiratory 18 Rate Blood Pressure 153/61 169/100 151/98 O2 Sat by Pulse Oximetry O2 Sat by Pulse 97 Oximetry [ Anterior Bilateral] O2 Sat by Pulse 97 Oximetry [ Bilateral] 08/28/21 08/28/21 08/28/21 11:30 11:45 12:00 Temperature Pulse Rate 84 97 H 82 Respiratory Rate Blood Pressure 109/86 119/53 113/74 O2 Sat by Pulse Oximetry O2 Sat by Pulse Oximetry [ Anterior Bilateral] O2 Sat by Pulse Oximetry [ Bilateral] 08/28/21 08/28/21 08/28/21 12:15 12:30 12:45 Temperature Pulse Rate 71 71 91 H Respiratory Rate Blood Pressure 179/46 176/82 180/89 O2 Sat by Pulse Oximetry O2 Sat by Pulse Oximetry [ Anterior Bilateral] O2 Sat by Pulse Oximetry [ Bilateral] 08/28/21 08/28/21 08/28/21 13:00 13:15 13:30 Temperature Pulse Rate 75 76 74 Respiratory Rate Blood Pressure 169/98 131/48 130/80 O2 Sat by Pulse Oximetry O2 Sat by Pulse Oximetry [ Anterior Bilateral] O2 Sat by Pulse Oximetry [ Bilateral] 08/28/21 08/28/21 08/28/21 13:45 13:59 14:10 Temperature 98.4 F Pulse Rate 71 74 Respiratory 18 Rate Blood Pressure 110/51 124/58 O2 Sat by Pulse 96 Oximetry O2 Sat by Pulse 97 Oximetry [ Anterior Bilateral] O2 Sat by Pulse 97 Oximetry [ Bilateral] Constitutional: no acute distress, asleep Eyes: non-icteric ENT: oropharynx moist Neck: supple, no lymphadenopathy Effort: normal Ascultation: Bilateral: diminished breath sounds, rhonchi Percussion: Bilateral: not dull Cardiovascular: regular rate and rhythm, other (S1,S2) Gastrointestinal: normoactive bowel sounds, soft, non-tender, non-distended Integumentary: normal Extremities: no cyanosis, no edema, pink and warm, pulses normal Neurologic: non-focal exam (grossly), pupils equal and round, CN II-XII normal Psychiatric: other (Patient sleeping.) CBC and BMP: 08/26/21 04:31 08/28/21 06:51 ABG, PT/INR, D-dimer: ABG ABG pH 7.453 pH Units (7.350-7.450) H 08/25/21 10:30 ABG pCO2 42.8 mm Hg 08/25/21 10:30 ABG pO2 98.5 mm Hg (80.0-90.0) H 08/25/21 10:30 ABG O2 Saturation 97.6 % (95.0-99.0) 08/25/21 10:30 PT/INR, D-dimer PT 15.6 Sec. (12.2-14.9) H 08/19/21 04:53 INR 1.12 (0.87-1.13) 08/19/21 04:53 D-Dimer 3539.01 ng/mlDDU (0-234) H 08/28/21 06:51 Abnormal lab findings: Abnormal Labs 08/19/21 08/19/21 08/19/21 04:53 04:53 04:53 WBC 13.0 H RBC 3.03 L Hgb 9.1 L Hct 28.8 L RDW 20.5 H Lymph % (Auto) Seg Neutrophils % Seg Neuts % (Manual) 96.0 H Lymphocytes % (Manual) 1.0 L Seg Neutrophils # Seg Neutrophils # Man 12.5 H Lymphocytes # (Manual) 0.1 L PT 15.6 H D-Dimer ABG pH ABG pO2 ABG HCO3 ABG O2 Saturation ABG Base Excess ABG Hemoglobin Sodium 132 L D Potassium Chloride 96.8 L BUN Creatinine 3.6 H Glucose 599 H* POC Glucose Lactic Acid Calcium 6.6 L D Phosphorus Magnesium 1.50 L Ferritin ALT 6 L Ammonia Lactate Dehydrogenase Troponin T 0.042 H C-Reactive Protein NT-Pro-B Natriuret Pep Total Protein 5.4 L Albumin 2.4 L TSH Coronavirus (PCR) Crossmatch 08/19/21 08/19/21 08/19/21 04:53 04:53 05:35 WBC RBC Hgb Hct RDW Lymph % (Auto) Seg Neutrophils % Seg Neuts % (Manual) Lymphocytes % (Manual) Seg Neutrophils # Seg Neutrophils # Man Lymphocytes # (Manual) PT D-Dimer ABG pH 7.520 H ABG pO2 152.6 H ABG HCO3 26.3 H ABG O2 Saturation ABG Base Excess 3.4 H ABG Hemoglobin 7.9 L Sodium Potassium Chloride BUN Creatinine Glucose POC Glucose Lactic Acid 2.10 H* Calcium Phosphorus Magnesium Ferritin ALT Ammonia 10.0 L Lactate Dehydrogenase Troponin T C-Reactive Protein NT-Pro-B Natriuret Pep Total Protein Albumin TSH Coronavirus (PCR) Crossmatch 08/19/21 08/19/21 08/19/21 06:01 07:54 08:30 WBC RBC Hgb Hct RDW Lymph % (Auto) Seg Neutrophils % Seg Neuts % (Manual) Lymphocytes % (Manual) Seg Neutrophils # Seg Neutrophils # Man Lymphocytes # (Manual) PT D-Dimer ABG pH ABG pO2 ABG HCO3 ABG O2 Saturation ABG Base Excess ABG Hemoglobin Sodium Potassium Chloride BUN Creatinine Glucose POC Glucose < 10 L Lactic Acid Calcium Phosphorus Magnesium Ferritin ALT Ammonia Lactate Dehydrogenase Troponin T C-Reactive Protein NT-Pro-B Natriuret Pep 55406 H Total Protein Albumin TSH 4.850 H Coronavirus (PCR) Crossmatch 08/19/21 08/19/21 08/19/21 08:30 08:37 09:43 WBC RBC Hgb Hct RDW Lymph % (Auto) Seg Neutrophils % Seg Neuts % (Manual) Lymphocytes % (Manual) Seg Neutrophils # Seg Neutrophils # Man Lymphocytes # (Manual) PT D-Dimer ABG pH ABG pO2 ABG HCO3 ABG O2 Saturation ABG Base Excess ABG Hemoglobin Sodium Potassium Chloride BUN Creatinine Glucose POC Glucose 115 H < 10 L Lactic Acid 3.20 H* Calcium Phosphorus Magnesium Ferritin ALT Ammonia Lactate Dehydrogenase Troponin T C-Reactive Protein NT-Pro-B Natriuret Pep Total Protein Albumin TSH Coronavirus (PCR) Crossmatch 08/19/21 08/19/21 08/19/21 10:07 11:05 11:49 WBC RBC Hgb Hct RDW Lymph % (Auto) Seg Neutrophils % Seg Neuts % (Manual) Lymphocytes % (Manual) Seg Neutrophils # Seg Neutrophils # Man Lymphocytes # (Manual) PT D-Dimer ABG pH ABG pO2 ABG HCO3 ABG O2 Saturation ABG Base Excess ABG Hemoglobin Sodium Potassium Chloride BUN Creatinine Glucose POC Glucose 109 H 32 L 164 H Lactic Acid Calcium Phosphorus Magnesium Ferritin ALT Ammonia Lactate Dehydrogenase Troponin T C-Reactive Protein NT-Pro-B Natriuret Pep Total Protein Albumin TSH Coronavirus (PCR) Crossmatch 08/19/21 08/19/21 08/19/21 14:03 16:57 18:23 WBC RBC Hgb Hct RDW Lymph % (Auto) Seg Neutrophils % Seg Neuts % (Manual) Lymphocytes % (Manual) Seg Neutrophils # Seg Neutrophils # Man Lymphocytes # (Manual) PT D-Dimer ABG pH ABG pO2 ABG HCO3 ABG O2 Saturation ABG Base Excess ABG Hemoglobin Sodium Potassium Chloride BUN Creatinine Glucose POC Glucose 51 L 57 L 50 L Lactic Acid Calcium Phosphorus Magnesium Ferritin ALT Ammonia Lactate Dehydrogenase Troponin T C-Reactive Protein NT-Pro-B Natriuret Pep Total Protein Albumin TSH Coronavirus (PCR) Crossmatch 08/19/21 08/19/21 08/19/21 19:15 21:42 23:29 WBC RBC Hgb Hct RDW Lymph % (Auto) Seg Neutrophils % Seg Neuts % (Manual) Lymphocytes % (Manual) Seg Neutrophils # Seg Neutrophils # Man Lymphocytes # (Manual) PT D-Dimer ABG pH ABG pO2 ABG HCO3 ABG O2 Saturation ABG Base Excess ABG Hemoglobin Sodium Potassium Chloride BUN Creatinine Glucose 26 L* POC Glucose 57 L 42 L Lactic Acid Calcium Phosphorus Magnesium Ferritin ALT Ammonia Lactate Dehydrogenase Troponin T C-Reactive Protein NT-Pro-B Natriuret Pep Total Protein Albumin TSH Coronavirus (PCR) Crossmatch 08/19/21 08/19/21 08/20/21 Unknown Unknown 00:37 WBC RBC Hgb Hct RDW Lymph % (Auto) Seg Neutrophils % Seg Neuts % (Manual) Lymphocytes % (Manual) Seg Neutrophils # Seg Neutrophils # Man Lymphocytes # (Manual) PT D-Dimer ABG pH 7.499 H ABG pO2 239.2 H ABG HCO3 27.6 H ABG O2 Saturation 99.4 H ABG Base Excess 4.3 H ABG Hemoglobin 11.3 L Sodium Potassium Chloride BUN Creatinine Glucose POC Glucose 50 L Lactic Acid Calcium Phosphorus Magnesium Ferritin ALT Ammonia Lactate Dehydrogenase Troponin T C-Reactive Protein NT-Pro-B Natriuret Pep Total Protein Albumin TSH Coronavirus (PCR) Positive A Crossmatch 08/20/21 08/20/21 08/20/21 01:41 02:35 03:41 WBC RBC Hgb Hct RDW Lymph % (Auto) Seg Neutrophils % Seg Neuts % (Manual) Lymphocytes % (Manual) Seg Neutrophils # Seg Neutrophils # Man Lymphocytes # (Manual) PT D-Dimer ABG pH ABG pO2 ABG HCO3 ABG O2 Saturation ABG Base Excess ABG Hemoglobin Sodium Potassium Chloride BUN Creatinine Glucose POC Glucose 54 L 40 L 13 L Lactic Acid Calcium Phosphorus Magnesium Ferritin ALT Ammonia Lactate Dehydrogenase Troponin T C-Reactive Protein NT-Pro-B Natriuret Pep Total Protein Albumin TSH Coronavirus (PCR) Crossmatch 08/20/21 08/20/21 08/20/21 04:15 04:15 04:15 WBC 14.6 H RBC Hgb Hct RDW 20.7 H Lymph % (Auto) 9.9 L Seg Neutrophils % 82.4 H Seg Neuts % (Manual) Lymphocytes % (Manual) Seg Neutrophils # 12.0 H Seg Neutrophils # Man Lymphocytes # (Manual) PT D-Dimer ABG pH ABG pO2 ABG HCO3 ABG O2 Saturation ABG Base Excess ABG Hemoglobin Sodium 132 L Potassium Chloride 93.8 L BUN Creatinine 2.7 H Glucose 52 L POC Glucose Lactic Acid 3.40 H* Calcium 7.1 L Phosphorus Magnesium Ferritin ALT Ammonia Lactate Dehydrogenase Troponin T C-Reactive Protein NT-Pro-B Natriuret Pep Total Protein 4.9 L Albumin 2.6 L TSH Coronavirus (PCR) Crossmatch 08/20/21 08/20/21 08/20/21 05:28 06:33 07:37 WBC RBC Hgb Hct RDW Lymph % (Auto) Seg Neutrophils % Seg Neuts % (Manual) Lymphocytes % (Manual) Seg Neutrophils # Seg Neutrophils # Man Lymphocytes # (Manual) PT D-Dimer ABG pH ABG pO2 ABG HCO3 ABG O2 Saturation ABG Base Excess ABG Hemoglobin Sodium Potassium Chloride BUN Creatinine Glucose POC Glucose 51 L 67 L 59 L Lactic Acid Calcium Phosphorus Magnesium Ferritin ALT Ammonia Lactate Dehydrogenase Troponin T C-Reactive Protein NT-Pro-B Natriuret Pep Total Protein Albumin TSH Coronavirus (PCR) Crossmatch 08/20/21 08/20/21 08/20/21 11:55 12:31 13:37 WBC RBC Hgb Hct RDW Lymph % (Auto) Seg Neutrophils % Seg Neuts % (Manual) Lymphocytes % (Manual) Seg Neutrophils # Seg Neutrophils # Man Lymphocytes # (Manual) PT D-Dimer ABG pH 7.526 H ABG pO2 166.8 H ABG HCO3 ABG O2 Saturation 99.1 H ABG Base Excess ABG Hemoglobin 8.7 L Sodium Potassium Chloride BUN Creatinine Glucose POC Glucose 152 H 150 H Lactic Acid Calcium Phosphorus Magnesium Ferritin ALT Ammonia Lactate Dehydrogenase Troponin T C-Reactive Protein NT-Pro-B Natriuret Pep Total Protein Albumin TSH Coronavirus (PCR) Crossmatch 08/20/21 08/20/21 08/20/21 15:47 17:53 23:19 WBC RBC Hgb Hct RDW Lymph % (Auto) Seg Neutrophils % Seg Neuts % (Manual) Lymphocytes % (Manual) Seg Neutrophils # Seg Neutrophils # Man Lymphocytes # (Manual) PT D-Dimer ABG pH ABG pO2 ABG HCO3 ABG O2 Saturation ABG Base Excess ABG Hemoglobin Sodium Potassium Chloride BUN Creatinine Glucose POC Glucose 204 H 223 H 217 H Lactic Acid Calcium Phosphorus Magnesium Ferritin ALT Ammonia Lactate Dehydrogenase Troponin T C-Reactive Protein NT-Pro-B Natriuret Pep Total Protein Albumin TSH Coronavirus (PCR) Crossmatch 08/21/21 08/21/21 08/21/21 04:46 04:46 04:46 WBC 23.9 H RBC 2.55 L Hgb 7.8 L D Hct 23.6 L D RDW 20.2 H Lymph % (Auto) Seg Neutrophils % Seg Neuts % (Manual) 97.0 H Lymphocytes % (Manual) 1.0 L Seg Neutrophils # Seg Neutrophils # Man 23.2 H Lymphocytes # (Manual) 0.2 L PT D-Dimer ABG pH ABG pO2 ABG HCO3 ABG O2 Saturation ABG Base Excess ABG Hemoglobin Sodium 122 L D Potassium Chloride 87.0 L BUN 23 H Creatinine 3.8 H Glucose 166 H POC Glucose Lactic Acid Calcium 6.8 L Phosphorus 1.60 L Magnesium 1.60 L Ferritin 1787.0 H ALT Ammonia Lactate Dehydrogenase Troponin T C-Reactive Protein 10.60 H NT-Pro-B Natriuret Pep Total Protein Albumin TSH Coronavirus (PCR) Crossmatch 08/21/21 08/21/21 08/21/21 05:11 08:18 11:10 WBC RBC Hgb Hct RDW Lymph % (Auto) Seg Neutrophils % Seg Neuts % (Manual) Lymphocytes % (Manual) Seg Neutrophils # Seg Neutrophils # Man Lymphocytes # (Manual) PT D-Dimer ABG pH 7.495 H ABG pO2 141.5 H ABG HCO3 26.2 H ABG O2 Saturation ABG Base Excess ABG Hemoglobin 7.9 L Sodium Potassium Chloride BUN Creatinine Glucose POC Glucose 151 H 141 H Lactic Acid Calcium Phosphorus Magnesium Ferritin ALT Ammonia Lactate Dehydrogenase Troponin T C-Reactive Protein NT-Pro-B Natriuret Pep Total Protein Albumin TSH Coronavirus (PCR) Crossmatch 08/21/21 08/21/21 08/21/21 14:42 16:43 23:34 WBC RBC Hgb Hct RDW Lymph % (Auto) Seg Neutrophils % Seg Neuts % (Manual) Lymphocytes % (Manual) Seg Neutrophils # Seg Neutrophils # Man Lymphocytes # (Manual) PT D-Dimer ABG pH ABG pO2 ABG HCO3 ABG O2 Saturation ABG Base Excess ABG Hemoglobin Sodium 121 L Potassium 5.2 H Chloride 88.1 L BUN 28 H Creatinine 3.9 H Glucose 130 H POC Glucose 113 H 171 H Lactic Acid Calcium 6.7 L Phosphorus Magnesium 2.80 H Ferritin ALT Ammonia Lactate Dehydrogenase Troponin T C-Reactive Protein NT-Pro-B Natriuret Pep Total Protein Albumin TSH Coronavirus (PCR) Crossmatch 08/22/21 08/22/21 08/22/21 05:09 05:09 05:40 WBC 25.0 H RBC 2.55 L Hgb 7.8 L Hct 23.5 L RDW 21.1 H Lymph % (Auto) Seg Neutrophils % Seg Neuts % (Manual) Lymphocytes % (Manual) Seg Neutrophils # Seg Neutrophils # Man Lymphocytes # (Manual) PT D-Dimer ABG pH 7.513 H ABG pO2 ABG HCO3 ABG O2 Saturation ABG Base Excess ABG Hemoglobin 8.6 L Sodium 135 L D Potassium Chloride BUN 20 H Creatinine 2.9 H Glucose POC Glucose Lactic Acid Calcium 7.6 L Phosphorus 1.40 L D Magnesium Ferritin ALT Ammonia Lactate Dehydrogenase Troponin T C-Reactive Protein NT-Pro-B Natriuret Pep Total Protein Albumin TSH Coronavirus (PCR) Crossmatch 08/22/21 08/22/21 08/22/21 11:37 12:09 17:16 WBC RBC Hgb Hct RDW Lymph % (Auto) Seg Neutrophils % Seg Neuts % (Manual) Lymphocytes % (Manual) Seg Neutrophils # Seg Neutrophils # Man Lymphocytes # (Manual) PT D-Dimer ABG pH ABG pO2 ABG HCO3 ABG O2 Saturation ABG Base Excess ABG Hemoglobin Sodium Potassium Chloride BUN Creatinine Glucose POC Glucose 122 H 121 H 120 H Lactic Acid Calcium Phosphorus Magnesium Ferritin ALT Ammonia Lactate Dehydrogenase Troponin T C-Reactive Protein NT-Pro-B Natriuret Pep Total Protein Albumin TSH Coronavirus (PCR) Crossmatch 08/22/21 08/23/21 08/23/21 23:49 04:00 04:00 WBC 19.0 H RBC 2.41 L Hgb 7.2 L Hct 22.4 L RDW 22.1 H Lymph % (Auto) Seg Neutrophils % Seg Neuts % (Manual) Lymphocytes % (Manual) Seg Neutrophils # Seg Neutrophils # Man Lymphocytes # (Manual) PT D-Dimer ABG pH ABG pO2 ABG HCO3 ABG O2 Saturation ABG Base Excess ABG Hemoglobin Sodium Potassium Chloride BUN 32 H Creatinine 3.7 H Glucose 109 H POC Glucose 114 H Lactic Acid Calcium 6.8 L Phosphorus 4.70 H D Magnesium Ferritin ALT Ammonia Lactate Dehydrogenase Troponin T C-Reactive Protein NT-Pro-B Natriuret Pep Total Protein Albumin TSH Coronavirus (PCR) Crossmatch 08/23/21 08/23/21 08/23/21 04:54 05:40 11:10 WBC RBC Hgb Hct RDW Lymph % (Auto) Seg Neutrophils % Seg Neuts % (Manual) Lymphocytes % (Manual) Seg Neutrophils # Seg Neutrophils # Man Lymphocytes # (Manual) PT D-Dimer ABG pH 7.475 H ABG pO2 111.8 H ABG HCO3 26.1 H ABG O2 Saturation ABG Base Excess ABG Hemoglobin 7.5 L Sodium Potassium Chloride BUN Creatinine Glucose POC Glucose 108 H 107 H Lactic Acid Calcium Phosphorus Magnesium Ferritin ALT Ammonia Lactate Dehydrogenase Troponin T C-Reactive Protein NT-Pro-B Natriuret Pep Total Protein Albumin TSH Coronavirus (PCR) Crossmatch 08/23/21 08/23/21 08/24/21 16:07 23:52 04:00 WBC 15.5 H RBC 2.22 L Hgb 6.9 L Hct 20.8 L RDW 22.2 H Lymph % (Auto) Seg Neutrophils % Seg Neuts % (Manual) Lymphocytes % (Manual) Seg Neutrophils # Seg Neutrophils # Man Lymphocytes # (Manual) PT D-Dimer ABG pH ABG pO2 ABG HCO3 ABG O2 Saturation ABG Base Excess ABG Hemoglobin Sodium Potassium Chloride BUN Creatinine Glucose POC Glucose 132 H 138 H Lactic Acid Calcium Phosphorus Magnesium Ferritin ALT Ammonia Lactate Dehydrogenase Troponin T C-Reactive Protein NT-Pro-B Natriuret Pep Total Protein Albumin TSH Coronavirus (PCR) Crossmatch 08/24/21 08/24/21 08/24/21 04:00 06:00 06:41 WBC RBC Hgb Hct RDW Lymph % (Auto) Seg Neutrophils % Seg Neuts % (Manual) Lymphocytes % (Manual) Seg Neutrophils # Seg Neutrophils # Man Lymphocytes # (Manual) PT D-Dimer ABG pH 7.491 H ABG pO2 105.3 H ABG HCO3 ABG O2 Saturation ABG Base Excess ABG Hemoglobin 7.0 L Sodium 136 L Potassium Chloride BUN 43 H Creatinine 4.1 H Glucose 104 H POC Glucose Lactic Acid Calcium 6.9 L Phosphorus Magnesium Ferritin ALT Ammonia Lactate Dehydrogenase Troponin T C-Reactive Protein NT-Pro-B Natriuret Pep Total Protein Albumin TSH Coronavirus (PCR) Crossmatch See Detail 08/24/21 08/24/21 08/24/21 12:06 18:46 23:32 WBC RBC Hgb Hct RDW Lymph % (Auto) Seg Neutrophils % Seg Neuts % (Manual) Lymphocytes % (Manual) Seg Neutrophils # Seg Neutrophils # Man Lymphocytes # (Manual) PT D-Dimer ABG pH ABG pO2 ABG HCO3 ABG O2 Saturation ABG Base Excess ABG Hemoglobin Sodium Potassium Chloride BUN Creatinine Glucose POC Glucose 135 H 133 H 131 H Lactic Acid Calcium Phosphorus Magnesium Ferritin ALT Ammonia Lactate Dehydrogenase Troponin T C-Reactive Protein NT-Pro-B Natriuret Pep Total Protein Albumin TSH Coronavirus (PCR) Crossmatch 08/25/21 08/25/21 08/25/21 04:12 04:12 05:34 WBC 12.8 H RBC 2.97 L Hgb 9.1 L Hct 26.8 L D RDW 19.8 H Lymph % (Auto) Seg Neutrophils % Seg Neuts % (Manual) Lymphocytes % (Manual) Seg Neutrophils # Seg Neutrophils # Man Lymphocytes # (Manual) PT D-Dimer ABG pH ABG pO2 ABG HCO3 ABG O2 Saturation ABG Base Excess ABG Hemoglobin Sodium Potassium Chloride BUN 25 H Creatinine 2.9 H Glucose 123 H POC Glucose 117 H Lactic Acid Calcium 7.8 L Phosphorus Magnesium Ferritin ALT Ammonia Lactate Dehydrogenase Troponin T C-Reactive Protein NT-Pro-B Natriuret Pep Total Protein Albumin TSH Coronavirus (PCR) Crossmatch 08/25/21 08/25/21 08/25/21 10:30 12:19 16:39 WBC RBC Hgb Hct RDW Lymph % (Auto) Seg Neutrophils % Seg Neuts % (Manual) Lymphocytes % (Manual) Seg Neutrophils # Seg Neutrophils # Man Lymphocytes # (Manual) PT D-Dimer ABG pH 7.453 H ABG pO2 98.5 H ABG HCO3 29.2 H ABG O2 Saturation ABG Base Excess 4.8 H ABG Hemoglobin 11.2 L Sodium Potassium Chloride BUN Creatinine Glucose POC Glucose 128 H 124 H Lactic Acid Calcium Phosphorus Magnesium Ferritin ALT Ammonia Lactate Dehydrogenase Troponin T C-Reactive Protein NT-Pro-B Natriuret Pep Total Protein Albumin TSH Coronavirus (PCR) Crossmatch 08/25/21 08/26/21 08/26/21 23:44 04:31 04:31 WBC RBC 2.92 L Hgb 9.0 L Hct 26.5 L RDW 20.5 H Lymph % (Auto) Seg Neutrophils % Seg Neuts % (Manual) Lymphocytes % (Manual) Seg Neutrophils # Seg Neutrophils # Man Lymphocytes # (Manual) PT D-Dimer ABG pH ABG pO2 ABG HCO3 ABG O2 Saturation ABG Base Excess ABG Hemoglobin Sodium Potassium Chloride BUN 39 H Creatinine 3.2 H Glucose 119 H POC Glucose 134 H Lactic Acid Calcium 7.9 L Phosphorus Magnesium Ferritin ALT Ammonia Lactate Dehydrogenase 194 H Troponin T C-Reactive Protein 9.10 H NT-Pro-B Natriuret Pep Total Protein Albumin TSH Coronavirus (PCR) Crossmatch 08/26/21 08/26/21 08/26/21 04:31 04:31 05:24 WBC RBC Hgb Hct RDW Lymph % (Auto) Seg Neutrophils % Seg Neuts % (Manual) Lymphocytes % (Manual) Seg Neutrophils # Seg Neutrophils # Man Lymphocytes # (Manual) PT D-Dimer 2539.68 H ABG pH ABG pO2 ABG HCO3 ABG O2 Saturation ABG Base Excess ABG Hemoglobin Sodium Potassium Chloride BUN Creatinine Glucose POC Glucose 114 H Lactic Acid Calcium Phosphorus Magnesium Ferritin > 2000.0 H ALT Ammonia Lactate Dehydrogenase Troponin T C-Reactive Protein NT-Pro-B Natriuret Pep Total Protein Albumin TSH Coronavirus (PCR) Crossmatch 08/26/21 08/26/21 08/27/21 11:07 16:01 08:08 WBC RBC Hgb Hct RDW Lymph % (Auto) Seg Neutrophils % Seg Neuts % (Manual) Lymphocytes % (Manual) Seg Neutrophils # Seg Neutrophils # Man Lymphocytes # (Manual) PT D-Dimer ABG pH ABG pO2 ABG HCO3 ABG O2 Saturation ABG Base Excess ABG Hemoglobin Sodium Potassium Chloride BUN 23 H Creatinine 2.2 H Glucose POC Glucose 121 H 157 H Lactic Acid Calcium Phosphorus Magnesium Ferritin ALT Ammonia Lactate Dehydrogenase Troponin T C-Reactive Protein NT-Pro-B Natriuret Pep Total Protein Albumin TSH Coronavirus (PCR) Crossmatch 08/28/21 08/28/21 08/28/21 06:51 06:51 06:51 WBC RBC Hgb Hct RDW Lymph % (Auto) Seg Neutrophils % Seg Neuts % (Manual) Lymphocytes % (Manual) Seg Neutrophils # Seg Neutrophils # Man Lymphocytes # (Manual) PT D-Dimer 3539.01 H ABG pH ABG pO2 ABG HCO3 ABG O2 Saturation ABG Base Excess ABG Hemoglobin Sodium 136 L Potassium Chloride BUN 35 H Creatinine 3.1 H Glucose POC Glucose Lactic Acid Calcium Phosphorus Magnesium Ferritin 3691.0 H ALT Ammonia Lactate Dehydrogenase 322 H Troponin T C-Reactive Protein 6.80 H NT-Pro-B Natriuret Pep Total Protein Albumin TSH Coronavirus (PCR) Crossmatch 08/28/21 12:06 WBC RBC Hgb Hct RDW Lymph % (Auto) Seg Neutrophils % Seg Neuts % (Manual) Lymphocytes % (Manual) Seg Neutrophils # Seg Neutrophils # Man Lymphocytes # (Manual) PT D-Dimer ABG pH ABG pO2 ABG HCO3 ABG O2 Saturation ABG Base Excess ABG Hemoglobin Sodium Potassium Chloride BUN Creatinine Glucose POC Glucose 126 H Lactic Acid Calcium Phosphorus Magnesium Ferritin ALT Ammonia Lactate Dehydrogenase Troponin T C-Reactive Protein NT-Pro-B Natriuret Pep Total Protein Albumin TSH Coronavirus (PCR) Crossmatch Chest x-ray: report reviewed, image reviewed Additional Studies: XR chest 1V ap 08/24/21 INDICATION / CLINICAL INFORMATION: Respiratory Failure, on the vent. COMPARISON: 08/19/2021 FINDINGS: SUPPORT DEVICES: Unchanged. HEART /PULMONARY VASCULATURE: Unchanged. LUNGS / PLEURA: Airspace disease is improving compared to prior examination. No pneumothorax. IMPRESSION: 1. Improving airspace disease. Allied health notes reviewed: nursing
[2021-08-28] MEDS: SENNOSIDES ORAL LIQD 8.8 MG/5 ML ORAL LIQD PO SCH (21:01)
[2021-08-29] MEDS: INSULIN LISPRO 100 UNIT/ML SUB-Q SCH ×3 (00:16→11:44)
[2021-08-29] MEDS: HEPARIN 5,000 UNIT/1 ML VIAL SUB-Q SCH (05:26)
[2021-08-29] MEDS: BUDESONIDE 0.5 MG/2 ML NEBU IH SCH ×2 (08:49→21:59)
[2021-08-29 09:22] VITALS: BP 156/88
[2021-08-29] MEDS: amLODIPine 10 MG TAB PO SCH (09:22)
[2021-08-29] MEDS: cloNIDine 0.1 MG TAB PO SCH (09:22)
[2021-08-29] MEDS: FAMOTIDINE 20 MG TAB PO SCH (09:23)
--- NOTE | 2021-08-29 18:27 | Progress Note ---
Assessment and Plan Patient is an 86-year-old female with past medical history of diabetes mellitus, end-stage renal disease on hemodialysis, hypertension, recent diagnosis of COVID-19 as well as initial presentation to the hospital with hypoglycemia who presents to the hospital after family found the patient unresponsive timeline is unclear EMS did note that the patient's blood sugar was less than 20. The records are not quite clear to me at this time as it appears the patient received D10 at some point with blood sugar in improving to 200 however the patient remained unresponsive and on arrival to the ED patient was intubated as it was determined that she could not control her airway. Further events including initial lab work showing a blood sugar of 599 and subsequently patient received insulin with a recurrent recheck in blood sugar showing less than 10. Patient intubated and placed on mechanical ventilation for severe hypoglycemia with acute metabolic encephalopathy and inability to protect her airway. Patient also positive for Win virus infection Patients hypoglycemia corrected. Patient eventually extubated. Patient Transfered to medical floor. Patient sleeping at this time. Opening eyes on verbal stimulation. Patient is on room air. O2 saturation 96%. Patient afebrile. No Leukocytosis. Blood pressure 124/58, pulse 96, respirations 19. Chest xray done 08/24/21 reported Improving airspace disease. Patient is on albuterol/budesonide aerosol treatments, S/C Heparin and Famotidine. - Patient Problems (1) Acute respiratory failure with hypoxia Current Visit: No Status: Acute Plan to address problem: Patient intubated and extubated. Patient presently on room air. O2 saturation 96% Continue albuterol/ Budesonide aerosol treatments. Continue S/C Heparin. Continue Famotidine. (2) Acute encephalopathy Current Visit: Yes Status: Acute Plan to address problem: Management as per primary care. (3) COVID-19 Current Visit: Yes Status: Acute Plan to address problem: Management as per infectious diseases. (4) Hypertension Current Visit: No Status: Chronic Qualifiers: Hypertension type: essential hypertension Plan to address problem: Management as per primary care. 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 Subjective Date of service: 08/29/21 Principal diagnosis: AHRF; Sepsis; Possible Aspiration; AMS; ESRD; HFpEF; Leukocytosis Interval history: Patient is an 86-year-old female with past medical history of diabetes mellitus, end-stage renal disease on hemodialysis, hypertension, recent diagnosis of COVID-19 as well as initial presentation to the hospital with hypoglycemia who presents to the hospital after family found the patient unresponsive timeline is unclear EMS did note that the patient's blood sugar was less than 20. The records are not quite clear to me at this time as it appears the patient received D10 at some point with blood sugar in improving to 200 however the patient remained unresponsive and on arrival to the ED patient was intubated as it was determined that she could not control her airway. Further events including initial lab work showing a blood sugar of 599 and subsequently patient received insulin with a recurrent recheck in blood sugar showing less than 10. Patient intubated and placed on mechanical ventilation for severe hypoglycemia with acute metabolic encephalopathy and inability to protect her airway. Patient also positive for Win virus infection Patients hypoglycemia corrected. Patient eventually extubated. Patient Transfered to medical floor. Patient sleeping at this time. Opening eyes on verbal stimulation. Patient is on room air. O2 saturation 96%. Patient afebrile. No Leukocytosis. Blood pressure 124/58, pulse 96, respirations 19. Chest xray done 08/24/21 reported Improving airspace disease. Patient is on albuterol/budesonide aerosol treatments, S/C Heparin and Famotidine. Objective Vital Signs - 12hr 08/29/21 08/29/21 08/29/21 08:49 09:20 09:22 Temperature 98.8 F Pulse Rate 94 H 94 H Pulse Rate [ 91 H Anterior Bilateral] Pulse Rate [ 89 Bilateral] Respiratory 16 Rate Respiratory 18 Rate [Anterior Bilateral] Respiratory 18 Rate [Bilateral ] Blood Pressure 156/88 Blood Pressure 156/88 [Right] O2 Sat by Pulse Oximetry 08/29/21 10:00 Temperature Pulse Rate Pulse Rate [ Anterior Bilateral] Pulse Rate [ Bilateral] Respiratory Rate Respiratory Rate [Anterior Bilateral] Respiratory Rate [Bilateral ] Blood Pressure Blood Pressure [Right] O2 Sat by Pulse 98 Oximetry Constitutional: no acute distress, asleep Eyes: non-icteric ENT: oropharynx moist Neck: supple, no lymphadenopathy Effort: normal Ascultation: Bilateral: diminished breath sounds, rhonchi Percussion: Bilateral: not dull Cardiovascular: regular rate and rhythm, other (S1,S2) Gastrointestinal: normoactive bowel sounds, soft, non-tender, non-distended Integumentary: normal Extremities: no cyanosis, no edema, pink and warm, pulses normal Neurologic: non-focal exam (grossly), pupils equal and round, CN II-XII normal Psychiatric: other (Patient sleeping.) CBC and BMP: 08/26/21 04:31 08/28/21 06:51 ABG, PT/INR, D-dimer: ABG ABG pH 7.453 pH Units (7.350-7.450) H 08/25/21 10:30 ABG pCO2 42.8 mm Hg 08/25/21 10:30 ABG pO2 98.5 mm Hg (80.0-90.0) H 08/25/21 10:30 ABG O2 Saturation 97.6 % (95.0-99.0) 08/25/21 10:30 PT/INR, D-dimer PT 15.6 Sec. (12.2-14.9) H 08/19/21 04:53 INR 1.12 (0.87-1.13) 08/19/21 04:53 D-Dimer 3539.01 ng/mlDDU (0-234) H 08/28/21 06:51 Abnormal lab findings: Abnormal Labs 08/19/21 08/19/21 08/19/21 04:53 04:53 04:53 WBC 13.0 H RBC 3.03 L Hgb 9.1 L Hct 28.8 L RDW 20.5 H Lymph % (Auto) Seg Neutrophils % Seg Neuts % (Manual) 96.0 H Lymphocytes % (Manual) 1.0 L Seg Neutrophils # Seg Neutrophils # Man 12.5 H Lymphocytes # (Manual) 0.1 L PT 15.6 H D-Dimer ABG pH ABG pO2 ABG HCO3 ABG O2 Saturation ABG Base Excess ABG Hemoglobin Sodium 132 L D Potassium Chloride 96.8 L BUN Creatinine 3.6 H Glucose 599 H* POC Glucose Lactic Acid Calcium 6.6 L D Phosphorus Magnesium 1.50 L Ferritin ALT 6 L Ammonia Lactate Dehydrogenase Troponin T 0.042 H C-Reactive Protein NT-Pro-B Natriuret Pep Total Protein 5.4 L Albumin 2.4 L TSH Coronavirus (PCR) Crossmatch 08/19/21 08/19/21 08/19/21 04:53 04:53 05:35 WBC RBC Hgb Hct RDW Lymph % (Auto) Seg Neutrophils % Seg Neuts % (Manual) Lymphocytes % (Manual) Seg Neutrophils # Seg Neutrophils # Man Lymphocytes # (Manual) PT D-Dimer ABG pH 7.520 H ABG pO2 152.6 H ABG HCO3 26.3 H ABG O2 Saturation ABG Base Excess 3.4 H ABG Hemoglobin 7.9 L Sodium Potassium Chloride BUN Creatinine Glucose POC Glucose Lactic Acid 2.10 H* Calcium Phosphorus Magnesium Ferritin ALT Ammonia 10.0 L Lactate Dehydrogenase Troponin T C-Reactive Protein NT-Pro-B Natriuret Pep Total Protein Albumin TSH Coronavirus (PCR) Crossmatch 08/19/21 08/19/21 08/19/21 06:01 07:54 08:30 WBC RBC Hgb Hct RDW Lymph % (Auto) Seg Neutrophils % Seg Neuts % (Manual) Lymphocytes % (Manual) Seg Neutrophils # Seg Neutrophils # Man Lymphocytes # (Manual) PT D-Dimer ABG pH ABG pO2 ABG HCO3 ABG O2 Saturation ABG Base Excess ABG Hemoglobin Sodium Potassium Chloride BUN Creatinine Glucose POC Glucose < 10 L Lactic Acid Calcium Phosphorus Magnesium Ferritin ALT Ammonia Lactate Dehydrogenase Troponin T C-Reactive Protein NT-Pro-B Natriuret Pep 21040 H Total Protein Albumin TSH 4.850 H Coronavirus (PCR) Crossmatch 08/19/21 08/19/21 08/19/21 08:30 08:37 09:43 WBC RBC Hgb Hct RDW Lymph % (Auto) Seg Neutrophils % Seg Neuts % (Manual) Lymphocytes % (Manual) Seg Neutrophils # Seg Neutrophils # Man Lymphocytes # (Manual) PT D-Dimer ABG pH ABG pO2 ABG HCO3 ABG O2 Saturation ABG Base Excess ABG Hemoglobin Sodium Potassium Chloride BUN Creatinine Glucose POC Glucose 115 H < 10 L Lactic Acid 3.20 H* Calcium Phosphorus Magnesium Ferritin ALT Ammonia Lactate Dehydrogenase Troponin T C-Reactive Protein NT-Pro-B Natriuret Pep Total Protein Albumin TSH Coronavirus (PCR) Crossmatch 08/19/21 08/19/21 08/19/21 10:07 11:05 11:49 WBC RBC Hgb Hct RDW Lymph % (Auto) Seg Neutrophils % Seg Neuts % (Manual) Lymphocytes % (Manual) Seg Neutrophils # Seg Neutrophils # Man Lymphocytes # (Manual) PT D-Dimer ABG pH ABG pO2 ABG HCO3 ABG O2 Saturation ABG Base Excess ABG Hemoglobin Sodium Potassium Chloride BUN Creatinine Glucose POC Glucose 109 H 32 L 164 H Lactic Acid Calcium Phosphorus Magnesium Ferritin ALT Ammonia Lactate Dehydrogenase Troponin T C-Reactive Protein NT-Pro-B Natriuret Pep Total Protein Albumin TSH Coronavirus (PCR) Crossmatch 08/19/21 08/19/21 08/19/21 14:03 16:57 18:23 WBC RBC Hgb Hct RDW Lymph % (Auto) Seg Neutrophils % Seg Neuts % (Manual) Lymphocytes % (Manual) Seg Neutrophils # Seg Neutrophils # Man Lymphocytes # (Manual) PT D-Dimer ABG pH ABG pO2 ABG HCO3 ABG O2 Saturation ABG Base Excess ABG Hemoglobin Sodium Potassium Chloride BUN Creatinine Glucose POC Glucose 51 L 57 L 50 L Lactic Acid Calcium Phosphorus Magnesium Ferritin ALT Ammonia Lactate Dehydrogenase Troponin T C-Reactive Protein NT-Pro-B Natriuret Pep Total Protein Albumin TSH Coronavirus (PCR) Crossmatch 08/19/21 08/19/21 08/19/21 19:15 21:42 23:29 WBC RBC Hgb Hct RDW Lymph % (Auto) Seg Neutrophils % Seg Neuts % (Manual) Lymphocytes % (Manual) Seg Neutrophils # Seg Neutrophils # Man Lymphocytes # (Manual) PT D-Dimer ABG pH ABG pO2 ABG HCO3 ABG O2 Saturation ABG Base Excess ABG Hemoglobin Sodium Potassium Chloride BUN Creatinine Glucose 26 L* POC Glucose 57 L 42 L Lactic Acid Calcium Phosphorus Magnesium Ferritin ALT Ammonia Lactate Dehydrogenase Troponin T C-Reactive Protein NT-Pro-B Natriuret Pep Total Protein Albumin TSH Coronavirus (PCR) Crossmatch 08/19/21 08/19/21 08/20/21 Unknown Unknown 00:37 WBC RBC Hgb Hct RDW Lymph % (Auto) Seg Neutrophils % Seg Neuts % (Manual) Lymphocytes % (Manual) Seg Neutrophils # Seg Neutrophils # Man Lymphocytes # (Manual) PT D-Dimer ABG pH 7.499 H ABG pO2 239.2 H ABG HCO3 27.6 H ABG O2 Saturation 99.4 H ABG Base Excess 4.3 H ABG Hemoglobin 11.3 L Sodium Potassium Chloride BUN Creatinine Glucose POC Glucose 50 L Lactic Acid Calcium Phosphorus Magnesium Ferritin ALT Ammonia Lactate Dehydrogenase Troponin T C-Reactive Protein NT-Pro-B Natriuret Pep Total Protein Albumin TSH Coronavirus (PCR) Positive A Crossmatch 08/20/21 08/20/21 08/20/21 01:41 02:35 03:41 WBC RBC Hgb Hct RDW Lymph % (Auto) Seg Neutrophils % Seg Neuts % (Manual) Lymphocytes % (Manual) Seg Neutrophils # Seg Neutrophils # Man Lymphocytes # (Manual) PT D-Dimer ABG pH ABG pO2 ABG HCO3 ABG O2 Saturation ABG Base Excess ABG Hemoglobin Sodium Potassium Chloride BUN Creatinine Glucose POC Glucose 54 L 40 L 13 L Lactic Acid Calcium Phosphorus Magnesium Ferritin ALT Ammonia Lactate Dehydrogenase Troponin T C-Reactive Protein NT-Pro-B Natriuret Pep Total Protein Albumin TSH Coronavirus (PCR) Crossmatch 08/20/21 08/20/21 08/20/21 04:15 04:15 04:15 WBC 14.6 H RBC Hgb Hct RDW 20.7 H Lymph % (Auto) 9.9 L Seg Neutrophils % 82.4 H Seg Neuts % (Manual) Lymphocytes % (Manual) Seg Neutrophils # 12.0 H Seg Neutrophils # Man Lymphocytes # (Manual) PT D-Dimer ABG pH ABG pO2 ABG HCO3 ABG O2 Saturation ABG Base Excess ABG Hemoglobin Sodium 132 L Potassium Chloride 93.8 L BUN Creatinine 2.7 H Glucose 52 L POC Glucose Lactic Acid 3.40 H* Calcium 7.1 L Phosphorus Magnesium Ferritin ALT Ammonia Lactate Dehydrogenase Troponin T C-Reactive Protein NT-Pro-B Natriuret Pep Total Protein 4.9 L Albumin 2.6 L TSH Coronavirus (PCR) Crossmatch 08/20/21 08/20/21 08/20/21 05:28 06:33 07:37 WBC RBC Hgb Hct RDW Lymph % (Auto) Seg Neutrophils % Seg Neuts % (Manual) Lymphocytes % (Manual) Seg Neutrophils # Seg Neutrophils # Man Lymphocytes # (Manual) PT D-Dimer ABG pH ABG pO2 ABG HCO3 ABG O2 Saturation ABG Base Excess ABG Hemoglobin Sodium Potassium Chloride BUN Creatinine Glucose POC Glucose 51 L 67 L 59 L Lactic Acid Calcium Phosphorus Magnesium Ferritin ALT Ammonia Lactate Dehydrogenase Troponin T C-Reactive Protein NT-Pro-B Natriuret Pep Total Protein Albumin TSH Coronavirus (PCR) Crossmatch 08/20/21 08/20/21 08/20/21 11:55 12:31 13:37 WBC RBC Hgb Hct RDW Lymph % (Auto) Seg Neutrophils % Seg Neuts % (Manual) Lymphocytes % (Manual) Seg Neutrophils # Seg Neutrophils # Man Lymphocytes # (Manual) PT D-Dimer ABG pH 7.526 H ABG pO2 166.8 H ABG HCO3 ABG O2 Saturation 99.1 H ABG Base Excess ABG Hemoglobin 8.7 L Sodium Potassium Chloride BUN Creatinine Glucose POC Glucose 152 H 150 H Lactic Acid Calcium Phosphorus Magnesium Ferritin ALT Ammonia Lactate Dehydrogenase Troponin T C-Reactive Protein NT-Pro-B Natriuret Pep Total Protein Albumin TSH Coronavirus (PCR) Crossmatch 08/20/21 08/20/21 08/20/21 15:47 17:53 23:19 WBC RBC Hgb Hct RDW Lymph % (Auto) Seg Neutrophils % Seg Neuts % (Manual) Lymphocytes % (Manual) Seg Neutrophils # Seg Neutrophils # Man Lymphocytes # (Manual) PT D-Dimer ABG pH ABG pO2 ABG HCO3 ABG O2 Saturation ABG Base Excess ABG Hemoglobin Sodium Potassium Chloride BUN Creatinine Glucose POC Glucose 204 H 223 H 217 H Lactic Acid Calcium Phosphorus Magnesium Ferritin ALT Ammonia Lactate Dehydrogenase Troponin T C-Reactive Protein NT-Pro-B Natriuret Pep Total Protein Albumin TSH Coronavirus (PCR) Crossmatch 08/21/21 08/21/21 08/21/21 04:46 04:46 04:46 WBC 23.9 H RBC 2.55 L Hgb 7.8 L D Hct 23.6 L D RDW 20.2 H Lymph % (Auto) Seg Neutrophils % Seg Neuts % (Manual) 97.0 H Lymphocytes % (Manual) 1.0 L Seg Neutrophils # Seg Neutrophils # Man 23.2 H Lymphocytes # (Manual) 0.2 L PT D-Dimer ABG pH ABG pO2 ABG HCO3 ABG O2 Saturation ABG Base Excess ABG Hemoglobin Sodium 122 L D Potassium Chloride 87.0 L BUN 23 H Creatinine 3.8 H Glucose 166 H POC Glucose Lactic Acid Calcium 6.8 L Phosphorus 1.60 L Magnesium 1.60 L Ferritin 1787.0 H ALT Ammonia Lactate Dehydrogenase Troponin T C-Reactive Protein 10.60 H NT-Pro-B Natriuret Pep Total Protein Albumin TSH Coronavirus (PCR) Crossmatch 08/21/21 08/21/21 08/21/21 05:11 08:18 11:10 WBC RBC Hgb Hct RDW Lymph % (Auto) Seg Neutrophils % Seg Neuts % (Manual) Lymphocytes % (Manual) Seg Neutrophils # Seg Neutrophils # Man Lymphocytes # (Manual) PT D-Dimer ABG pH 7.495 H ABG pO2 141.5 H ABG HCO3 26.2 H ABG O2 Saturation ABG Base Excess ABG Hemoglobin 7.9 L Sodium Potassium Chloride BUN Creatinine Glucose POC Glucose 151 H 141 H Lactic Acid Calcium Phosphorus Magnesium Ferritin ALT Ammonia Lactate Dehydrogenase Troponin T C-Reactive Protein NT-Pro-B Natriuret Pep Total Protein Albumin TSH Coronavirus (PCR) Crossmatch 08/21/21 08/21/21 08/21/21 14:42 16:43 23:34 WBC RBC Hgb Hct RDW Lymph % (Auto) Seg Neutrophils % Seg Neuts % (Manual) Lymphocytes % (Manual) Seg Neutrophils # Seg Neutrophils # Man Lymphocytes # (Manual) PT D-Dimer ABG pH ABG pO2 ABG HCO3 ABG O2 Saturation ABG Base Excess ABG Hemoglobin Sodium 121 L Potassium 5.2 H Chloride 88.1 L BUN 28 H Creatinine 3.9 H Glucose 130 H POC Glucose 113 H 171 H Lactic Acid Calcium 6.7 L Phosphorus Magnesium 2.80 H Ferritin ALT Ammonia Lactate Dehydrogenase Troponin T C-Reactive Protein NT-Pro-B Natriuret Pep Total Protein Albumin TSH Coronavirus (PCR) Crossmatch 08/22/21 08/22/21 08/22/21 05:09 05:09 05:40 WBC 25.0 H RBC 2.55 L Hgb 7.8 L Hct 23.5 L RDW 21.1 H Lymph % (Auto) Seg Neutrophils % Seg Neuts % (Manual) Lymphocytes % (Manual) Seg Neutrophils # Seg Neutrophils # Man Lymphocytes # (Manual) PT D-Dimer ABG pH 7.513 H ABG pO2 ABG HCO3 ABG O2 Saturation ABG Base Excess ABG Hemoglobin 8.6 L Sodium 135 L D Potassium Chloride BUN 20 H Creatinine 2.9 H Glucose POC Glucose Lactic Acid Calcium 7.6 L Phosphorus 1.40 L D Magnesium Ferritin ALT Ammonia Lactate Dehydrogenase Troponin T C-Reactive Protein NT-Pro-B Natriuret Pep Total Protein Albumin TSH Coronavirus (PCR) Crossmatch 08/22/21 08/22/21 08/22/21 11:37 12:09 17:16 WBC RBC Hgb Hct RDW Lymph % (Auto) Seg Neutrophils % Seg Neuts % (Manual) Lymphocytes % (Manual) Seg Neutrophils # Seg Neutrophils # Man Lymphocytes # (Manual) PT D-Dimer ABG pH ABG pO2 ABG HCO3 ABG O2 Saturation ABG Base Excess ABG Hemoglobin Sodium Potassium Chloride BUN Creatinine Glucose POC Glucose 122 H 121 H 120 H Lactic Acid Calcium Phosphorus Magnesium Ferritin ALT Ammonia Lactate Dehydrogenase Troponin T C-Reactive Protein NT-Pro-B Natriuret Pep Total Protein Albumin TSH Coronavirus (PCR) Crossmatch 08/22/21 08/23/21 08/23/21 23:49 04:00 04:00 WBC 19.0 H RBC 2.41 L Hgb 7.2 L Hct 22.4 L RDW 22.1 H Lymph % (Auto) Seg Neutrophils % Seg Neuts % (Manual) Lymphocytes % (Manual) Seg Neutrophils # Seg Neutrophils # Man Lymphocytes # (Manual) PT D-Dimer ABG pH ABG pO2 ABG HCO3 ABG O2 Saturation ABG Base Excess ABG Hemoglobin Sodium Potassium Chloride BUN 32 H Creatinine 3.7 H Glucose 109 H POC Glucose 114 H Lactic Acid Calcium 6.8 L Phosphorus 4.70 H D Magnesium Ferritin ALT Ammonia Lactate Dehydrogenase Troponin T C-Reactive Protein NT-Pro-B Natriuret Pep Total Protein Albumin TSH Coronavirus (PCR) Crossmatch 08/23/21 08/23/21 08/23/21 04:54 05:40 11:10 WBC RBC Hgb Hct RDW Lymph % (Auto) Seg Neutrophils % Seg Neuts % (Manual) Lymphocytes % (Manual) Seg Neutrophils # Seg Neutrophils # Man Lymphocytes # (Manual) PT D-Dimer ABG pH 7.475 H ABG pO2 111.8 H ABG HCO3 26.1 H ABG O2 Saturation ABG Base Excess ABG Hemoglobin 7.5 L Sodium Potassium Chloride BUN Creatinine Glucose POC Glucose 108 H 107 H Lactic Acid Calcium Phosphorus Magnesium Ferritin ALT Ammonia Lactate Dehydrogenase Troponin T C-Reactive Protein NT-Pro-B Natriuret Pep Total Protein Albumin TSH Coronavirus (PCR) Crossmatch 08/23/21 08/23/21 08/24/21 16:07 23:52 04:00 WBC 15.5 H RBC 2.22 L Hgb 6.9 L Hct 20.8 L RDW 22.2 H Lymph % (Auto) Seg Neutrophils % Seg Neuts % (Manual) Lymphocytes % (Manual) Seg Neutrophils # Seg Neutrophils # Man Lymphocytes # (Manual) PT D-Dimer ABG pH ABG pO2 ABG HCO3 ABG O2 Saturation ABG Base Excess ABG Hemoglobin Sodium Potassium Chloride BUN Creatinine Glucose POC Glucose 132 H 138 H Lactic Acid Calcium Phosphorus Magnesium Ferritin ALT Ammonia Lactate Dehydrogenase Troponin T C-Reactive Protein NT-Pro-B Natriuret Pep Total Protein Albumin TSH Coronavirus (PCR) Crossmatch 08/24/21 08/24/21 08/24/21 04:00 06:00 06:41 WBC RBC Hgb Hct RDW Lymph % (Auto) Seg Neutrophils % Seg Neuts % (Manual) Lymphocytes % (Manual) Seg Neutrophils # Seg Neutrophils # Man Lymphocytes # (Manual) PT D-Dimer ABG pH 7.491 H ABG pO2 105.3 H ABG HCO3 ABG O2 Saturation ABG Base Excess ABG Hemoglobin 7.0 L Sodium 136 L Potassium Chloride BUN 43 H Creatinine 4.1 H Glucose 104 H POC Glucose Lactic Acid Calcium 6.9 L Phosphorus Magnesium Ferritin ALT Ammonia Lactate Dehydrogenase Troponin T C-Reactive Protein NT-Pro-B Natriuret Pep Total Protein Albumin TSH Coronavirus (PCR) Crossmatch See Detail 08/24/21 08/24/21 08/24/21 12:06 18:46 23:32 WBC RBC Hgb Hct RDW Lymph % (Auto) Seg Neutrophils % Seg Neuts % (Manual) Lymphocytes % (Manual) Seg Neutrophils # Seg Neutrophils # Man Lymphocytes # (Manual) PT D-Dimer ABG pH ABG pO2 ABG HCO3 ABG O2 Saturation ABG Base Excess ABG Hemoglobin Sodium Potassium Chloride BUN Creatinine Glucose POC Glucose 135 H 133 H 131 H Lactic Acid Calcium Phosphorus Magnesium Ferritin ALT Ammonia Lactate Dehydrogenase Troponin T C-Reactive Protein NT-Pro-B Natriuret Pep Total Protein Albumin TSH Coronavirus (PCR) Crossmatch 08/25/21 08/25/21 08/25/21 04:12 04:12 05:34 WBC 12.8 H RBC 2.97 L Hgb 9.1 L Hct 26.8 L D RDW 19.8 H Lymph % (Auto) Seg Neutrophils % Seg Neuts % (Manual) Lymphocytes % (Manual) Seg Neutrophils # Seg Neutrophils # Man Lymphocytes # (Manual) PT D-Dimer ABG pH ABG pO2 ABG HCO3 ABG O2 Saturation ABG Base Excess ABG Hemoglobin Sodium Potassium Chloride BUN 25 H Creatinine 2.9 H Glucose 123 H POC Glucose 117 H Lactic Acid Calcium 7.8 L Phosphorus Magnesium Ferritin ALT Ammonia Lactate Dehydrogenase Troponin T C-Reactive Protein NT-Pro-B Natriuret Pep Total Protein Albumin TSH Coronavirus (PCR) Crossmatch 08/25/21 08/25/21 08/25/21 10:30 12:19 16:39 WBC RBC Hgb Hct RDW Lymph % (Auto) Seg Neutrophils % Seg Neuts % (Manual) Lymphocytes % (Manual) Seg Neutrophils # Seg Neutrophils # Man Lymphocytes # (Manual) PT D-Dimer ABG pH 7.453 H ABG pO2 98.5 H ABG HCO3 29.2 H ABG O2 Saturation ABG Base Excess 4.8 H ABG Hemoglobin 11.2 L Sodium Potassium Chloride BUN Creatinine Glucose POC Glucose 128 H 124 H Lactic Acid Calcium Phosphorus Magnesium Ferritin ALT Ammonia Lactate Dehydrogenase Troponin T C-Reactive Protein NT-Pro-B Natriuret Pep Total Protein Albumin TSH Coronavirus (PCR) Crossmatch 08/25/21 08/26/21 08/26/21 23:44 04:31 04:31 WBC RBC 2.92 L Hgb 9.0 L Hct 26.5 L RDW 20.5 H Lymph % (Auto) Seg Neutrophils % Seg Neuts % (Manual) Lymphocytes % (Manual) Seg Neutrophils # Seg Neutrophils # Man Lymphocytes # (Manual) PT D-Dimer ABG pH ABG pO2 ABG HCO3 ABG O2 Saturation ABG Base Excess ABG Hemoglobin Sodium Potassium Chloride BUN 39 H Creatinine 3.2 H Glucose 119 H POC Glucose 134 H Lactic Acid Calcium 7.9 L Phosphorus Magnesium Ferritin ALT Ammonia Lactate Dehydrogenase 194 H Troponin T C-Reactive Protein 9.10 H NT-Pro-B Natriuret Pep Total Protein Albumin TSH Coronavirus (PCR) Crossmatch 08/26/21 08/26/21 08/26/21 04:31 04:31 05:24 WBC RBC Hgb Hct RDW Lymph % (Auto) Seg Neutrophils % Seg Neuts % (Manual) Lymphocytes % (Manual) Seg Neutrophils # Seg Neutrophils # Man Lymphocytes # (Manual) PT D-Dimer 2539.68 H ABG pH ABG pO2 ABG HCO3 ABG O2 Saturation ABG Base Excess ABG Hemoglobin Sodium Potassium Chloride BUN Creatinine Glucose POC Glucose 114 H Lactic Acid Calcium Phosphorus Magnesium Ferritin > 2000.0 H ALT Ammonia Lactate Dehydrogenase Troponin T C-Reactive Protein NT-Pro-B Natriuret Pep Total Protein Albumin TSH Coronavirus (PCR) Crossmatch 08/26/21 08/26/21 08/27/21 11:07 16:01 08:08 WBC RBC Hgb Hct RDW Lymph % (Auto) Seg Neutrophils % Seg Neuts % (Manual) Lymphocytes % (Manual) Seg Neutrophils # Seg Neutrophils # Man Lymphocytes # (Manual) PT D-Dimer ABG pH ABG pO2 ABG HCO3 ABG O2 Saturation ABG Base Excess ABG Hemoglobin Sodium Potassium Chloride BUN 23 H Creatinine 2.2 H Glucose POC Glucose 121 H 157 H Lactic Acid Calcium Phosphorus Magnesium Ferritin ALT Ammonia Lactate Dehydrogenase Troponin T C-Reactive Protein NT-Pro-B Natriuret Pep Total Protein Albumin TSH Coronavirus (PCR) Crossmatch 08/28/21 08/28/21 08/28/21 06:51 06:51 06:51 WBC RBC Hgb Hct RDW Lymph % (Auto) Seg Neutrophils % Seg Neuts % (Manual) Lymphocytes % (Manual) Seg Neutrophils # Seg Neutrophils # Man Lymphocytes # (Manual) PT D-Dimer 3539.01 H ABG pH ABG pO2 ABG HCO3 ABG O2 Saturation ABG Base Excess ABG Hemoglobin Sodium 136 L Potassium Chloride BUN 35 H Creatinine 3.1 H Glucose POC Glucose Lactic Acid Calcium Phosphorus Magnesium Ferritin 3691.0 H ALT Ammonia Lactate Dehydrogenase 322 H Troponin T C-Reactive Protein 6.80 H NT-Pro-B Natriuret Pep Total Protein Albumin TSH Coronavirus (PCR) Crossmatch 08/28/21 08/29/21 08/29/21 12:06 00:06 11:36 WBC RBC Hgb Hct RDW Lymph % (Auto) Seg Neutrophils % Seg Neuts % (Manual) Lymphocytes % (Manual) Seg Neutrophils # Seg Neutrophils # Man Lymphocytes # (Manual) PT D-Dimer ABG pH ABG pO2 ABG HCO3 ABG O2 Saturation ABG Base Excess ABG Hemoglobin Sodium Potassium Chloride BUN Creatinine Glucose POC Glucose 126 H 108 H 125 H Lactic Acid Calcium Phosphorus Magnesium Ferritin ALT Ammonia Lactate Dehydrogenase Troponin T C-Reactive Protein NT-Pro-B Natriuret Pep Total Protein Albumin TSH Coronavirus (PCR) Crossmatch Allied health notes reviewed: nursing
== END 2021-08-29 14:35 | disposition home health service (06) | DRG 870 ==
LOC: ED 04:36 → CC1 08:36 → 3A 08-26 18:06
PROVIDERS: ADMIT Internal Medicine; ATTEND Student in an Organized Health Care Education/Training Program
PROC: 5A1955Z Respiratory Ventilation, Greater than 96 Consecutive Hours (ICD-10-PCS; principal; 2021-08-19)
PROC: 0BH17EZ Insertion of Endotracheal Airway into Trachea, Via Natural or Artificial Opening (ICD-10-PCS; 2021-08-19)
PROC: 5A1D70Z Performance of Urinary Filtration, Intermittent, Less than 6 Hours Per Day (ICD-10-PCS; 2021-08-19)
PROC: 4A033R1 Measurement of Arterial Saturation, Peripheral, Percutaneous Approach (ICD-10-PCS; 2021-08-21)
PROC: 5A1D70Z Performance of Urinary Filtration, Intermittent, Less than 6 Hours Per Day (ICD-10-PCS; 2021-08-21)
PROC: 5A1D70Z Performance of Urinary Filtration, Intermittent, Less than 6 Hours Per Day (ICD-10-PCS; 2021-08-24)
PROC: 30233N1 Transfusion of Nonautologous Red Blood Cells into Peripheral Vein, Percutaneous Approach (ICD-10-PCS; 2021-08-24)
PROC: 5A1D70Z Performance of Urinary Filtration, Intermittent, Less than 6 Hours Per Day (ICD-10-PCS; 2021-08-26)
PROC: 5A1D70Z Performance of Urinary Filtration, Intermittent, Less than 6 Hours Per Day (ICD-10-PCS; 2021-08-28)
DX: A41.9 Sepsis, unspecified organism (principal); J96.01 Acute respiratory failure with hypoxia; G93.41 Metabolic encephalopathy; N18.6 End stage renal disease; E43 Unspecified severe protein-calorie malnutrition; U07.1 COVID-19; J12.82 Pneumonia due to coronavirus disease 2019; I21.A1 Myocardial infarction type 2; I13.2 Hypertensive heart and chronic kidney disease with heart failure and with stage 5 chronic kidney disease, or end stage renal disease; I50.32 Chronic diastolic (congestive) heart failure; E87.1 Hypo-osmolality and hyponatremia; E83.42 Hypomagnesemia; E11.22 Type 2 diabetes mellitus with diabetic chronic kidney disease; E11.649 Type 2 diabetes mellitus with hypoglycemia without coma; E78.5 Hyperlipidemia, unspecified; D63.1 Anemia in chronic kidney disease; E87.6 Hypokalemia; Z68.30 Body mass index [BMI] 30.0-30.9, adult; E83.51 Hypocalcemia; E11.65 Type 2 diabetes mellitus with hyperglycemia
CPT/HCPCS: 36415; 36600; 70450; 71045; 74018; 80048; 80053; 80061; 80202; 82140; 82550; 82553; 82728; 82803; 82947; 82962; 83615; 83735; 83880; 84100; 84443; 84484; 85007; 85025; 85027; 85379; 85610; 85730; 86140; 86850; 86900; 86901; 86920; 87040; 87070; 87205; 93005; 93010; 93306; 94002; 94003; 94640; 94760; G0378; J3480; J3490; Q0162; Q9967; C8929; J0456; J0692; J0696; J1610; J1644; J1815; J2185; J2501; J2765; J2930; J3010; J3370; J3475; J7030; J7040; J7042; J7050; P9016; U0003

== ENCOUNTER 2021-08-31 17:50 | Inpatient (IN) | payer MEDICARE ==
--- NOTE | 2021-08-31 19:00 | Emergency Department Report ---
ED General Adult HPI - General Chief complaint: Hypoglycemia Stated complaint: HYPOGLYCEMIA Time Seen by Provider: 08/31/21 18:04 Source: EMS, old records reviewed Mode of arrival: Stretcher Limitations: Language Barrier - History of Present Illness Initial comments: 86-year-old [place] female with a past medical history of diabetes, end-stage renal disease on dialysis, hypertension, recent Covid with hospital-acquired pneumonia presents to the hospital for the third time this month for hypoglycemia. Patient was admitted here on August 11 and for significant alteration in mental status with hypoglycemia. Patient was most recently discharged on the (2 days ago) for altered mental status/hypoglycemia requiring intubation and was treated with healthcare associated pneumonia/possible aspiration, and patient was also Covid positive during both admissions. Patient apparently had an Accu-Chek of 34 upon arrival to dialysis and was less indurated than usual. EMS provided 15 g of glucose. They did notice that patient had residual food in her mouth upon removal of her dentures. Digital Learning Platform[employer] Manager used and patient currently denies any pain and reports being cold. She is oriented to self, date of , but not to year. Patient d id not receive dialysis today. At this time I am not clear if patient is on current diabetes medication based on medical record review Severity scale (0 -10): 0 - Related Data Home Medications Medication Instructions Recorded Confirmed Last Taken Diclofenac 1% [Diclofenac 1% 2 - 4 gm TP QID 08/12/21 08/25/21 Unknown topical gel] Gabapentin 300 mg PO BID 08/12/21 08/25/21 Unknown Mirtazapine [Remeron 15mg TAB] 15 mg PO QHS 08/12/21 08/25/21 Unknown cloNIDine [Catapres] 0.1 mg PO BID 08/12/21 08/25/21 Unknown Previous Rx's Medication Instructions Recorded Last Taken Type amLODIPine 10 mg PO DAILY #30 tablet 01/31/20 Unknown Rx Famotidine [Pepcid] 20 mg PO QAM #30 tablet 08/17/21 Unknown Rx Zinc Sulfate [Zinc] 220 mg PO BID #30 08/17/21 Unknown Rx Allergies Allergy/AdvReac Type Severity Reaction Status Date / Time No Known Allergies Allergy Verified 08/25/21 09:27 ED Review of Systems ROS: Stated complaint: HYPOGLYCEMIA Other details as noted in HPI Comment: All other systems reviewed and negative ED Past Medical Hx - Past Medical History Hx Hypertension: Yes Hx Heart Attack/AMI: Yes Hx Congestive Heart Failure: Yes (CHRONIC) Hx Diabetes: Yes Hx Deep Vein Thrombosis: Yes Hx Renal Disease: Yes (ESRD) Hx Arthritis: Yes Hx Headaches / Migraines: Yes (CHRONIC) Additional medical history: Heart failure 08/2018, Pulmonary edema 08/2018 - Surgical History Additional Surgical History: Left upper extremity fistula, right upper extremity fistula - Social History Smoking Status: Never Smoker - Medications Home Medications: Home Medications Medication Instructions Recorded Confirmed Last Taken Type amLODIPine 10 mg PO DAILY #30 tablet 01/31/20 08/25/21 Unknown Rx Diclofenac 1% [Diclofenac 1% 2 - 4 gm TP QID 08/12/21 08/25/21 Unknown History topical gel] Gabapentin 300 mg PO BID 08/12/21 08/25/21 Unknown History Mirtazapine [Remeron 15mg TAB] 15 mg PO QHS 08/12/21 08/25/21 Unknown History cloNIDine [Catapres] 0.1 mg PO BID 08/12/21 08/25/21 Unknown History Famotidine [Pepcid] 20 mg PO QAM #30 tablet 08/17/21 08/25/21 Unknown Rx Zinc Sulfate [Zinc] 220 mg PO BID #30 08/17/21 08/25/21 Unknown Rx ED Physical Exam - General Limitations: Language Barrier ED Course Vital Signs 08/31/21 08/31/21 08/31/21 17:56 19:41 19:45 Temperature 98.8 F Pulse Rate 91 H 101 H 107 H Respiratory 14 19 20 Rate Blood Pressure 177/75 184/72 Blood Pressure 160/67 182/79 [Left] O2 Sat by Pulse 100 96 97 Oximetry 08/31/21 08/31/21 20:01 20:11 Temperature Pulse Rate Respiratory 20 99 H Rate Blood Pressure 176/69 Blood Pressure [Left] O2 Sat by Pulse 96 99 Oximetry - Reevaluation(s) Reevaluation #1: 08/31/21 21:30 Patient received oral glucose prior to arrival with a sugar of 52. She received 1 orange juice in the ED and glucose only went up to 57. She then received 2 orange juice this with packs of sugar added and glucose went to 97. Upon repeat check glucose was 44 and patient had pulled out her right IJ. Left IJ placed in IV D10 with D10 infusion ordered - Consultations Consultation #1: 08/31/21 21:36 nephrology consult ordered to manage inpatient dialysis - EJ/Peripheral Line Neck R Time Out Performed: Yes Indications: nurses unable to establis Skin Cleansed in Sterile Fashion: Yes Size: 20 Dressing Placed: Tegaderm, tape Patient Tolerated Procedure: well, no complications Neck L Time Out Performed: Yes Indications: nurses unable to establis Skin Cleansed in Sterile Fashion: Yes Size: 20 Dressing Placed: Tegaderm, tape Patient Tolerated Procedure: well, no complications ED Medical Decision Making - Lab Data Result diagrams: 08/31/21 18:26 08/31/21 18:26 Lab Results 08/31/21 08/31/21 08/31/21 Range/Units 18:08 18:26 18:26 WBC 9.7 (4.5-11.0) K/mm3 RBC 3.73 (3.65-5.03) M/mm3 Hgb 11.3 (10.1-14.3) gm/dl Hct 33.8 (30.3-42.9) % MCV 91 (79-97) fl MCH 30 (28-32) pg MCHC 33 (30-34) % RDW 19.7 H (13.2-15.2) % Plt Count 491 H (140-440) K/mm3 Lymph % (Auto) 11.0 L (13.4-35.0) % [place] % (Auto) 5.1 (0.0-7.3) % Eos % (Auto) 2.8 (0.0-4.3) % Baso % (Auto) 0.6 (0.0-1.8) % Lymph # (Auto) 1.1 L (1.2-5.4) K/mm3 [place] # (Auto) 0.5 (0.0-0.8) K/mm3 Eos # (Auto) 0.3 (0.0-0.4) K/mm3 Baso # (Auto) 0.1 (0.0-0.1) K/mm3 Seg Neutrophils % 80.5 H (40.0-70.0) % Seg Neutrophils # 7.8 H (1.8-7.7) K/mm3 Sodium 141 (137-145) mmol/L Potassium 3.4 L D (3.6-5.0) mmol/L Chloride 99.7 (98-107) mmol/L Carbon Dioxide 26 (22-30) mmol/L Anion Gap 19 mmol/L BUN 43 H (7-17) mg/dL Creatinine 4.6 H (0.6-1.2) mg/dL Estimated GFR 9 ml/min BUN/Creatinine Ratio 9 % Glucose 78 (65-100) mg/dL POC Glucose 52 L (70-105) mg/dL Calcium 8.3 L (8.4-10.2) mg/dL NT-Pro-B Natriuret Pep (0-900) pg/mL 08/31/21 08/31/21 08/31/21 Range/Units 19:21 20:06 20:18 WBC (4.5-11.0) K/mm3 RBC (3.65-5.03) M/mm3 Hgb (10.1-14.3) gm/dl Hct (30.3-42.9) % MCV (79-97) fl MCH (28-32) pg MCHC (30-34) % RDW (13.2-15.2) % Plt Count (140-440) K/mm3 Lymph % (Auto) (13.4-35.0) % [place] % (Auto) (0.0-7.3) % Eos % (Auto) (0.0-4.3) % Baso % (Auto) (0.0-1.8) % Lymph # (Auto) (1.2-5.4) K/mm3 [place] # (Auto) (0.0-0.8) K/mm3 Eos # (Auto) (0.0-0.4) K/mm3 Baso # (Auto) (0.0-0.1) K/mm3 Seg Neutrophils % (40.0-70.0) % Seg Neutrophils # (1.8-7.7) K/mm3 Sodium (137-145) mmol/L Potassium (3.6-5.0) mmol/L Chloride (98-107) mmol/L Carbon Dioxide (22-30) mmol/L Anion Gap mmol/L BUN (7-17) mg/dL Creatinine (0.6-1.2) mg/dL Estimated GFR ml/min BUN/Creatinine Ratio % Glucose (65-100) mg/dL POC Glucose 57 L 97 (70-105) mg/dL Calcium (8.4-10.2) mg/dL NT-Pro-B Natriuret Pep 30948 H (0-900) pg/mL 08/31/21 Range/Units 21:19 WBC (4.5-11.0) K/mm3 RBC (3.65-5.03) M/mm3 Hgb (10.1-14.3) gm/dl Hct (30.3-42.9) % MCV (79-97) fl MCH (28-32) pg MCHC (30-34) % RDW (13.2-15.2) % Plt Count (140-440) K/mm3 Lymph % (Auto) (13.4-35.0) % [place] % (Auto) (0.0-7.3) % Eos % (Auto) (0.0-4.3) % Baso % (Auto) (0.0-1.8) % Lymph # (Auto) (1.2-5.4) K/mm3 [place] # (Auto) (0.0-0.8) K/mm3 Eos # (Auto) (0.0-0.4) K/mm3 Baso # (Auto) (0.0-0.1) K/mm3 Seg Neutrophils % (40.0-70.0) % Seg Neutrophils # (1.8-7.7) K/mm3 Sodium (137-145) mmol/L Potassium (3.6-5.0) mmol/L Chloride (98-107) mmol/L Carbon Dioxide (22-30) mmol/L Anion Gap mmol/L BUN (7-17) mg/dL Creatinine (0.6-1.2) mg/dL Estimated GFR ml/min BUN/Creatinine Ratio % Glucose (65-100) mg/dL POC Glucose 44 L (70-105) mg/dL Calcium (8.4-10.2) mg/dL NT-Pro-B Natriuret Pep (0-900) pg/mL - Radiology Data Radiology results: report reviewed XR chest 1V ap INDICATION / CLINICAL INFORMATION: hypoglycemic, recent pneumonia, missed dialysis COMPARISON: None available. FINDINGS: SUPPORT DEVICES: None. HEART / MEDIASTINUM: No significant abnormality. LUNGS / PLEURA: Worsening right basilar opacity. Blunting right costophrenic sulcus. No pneumothorax. ADDITIONAL FINDINGS: No significant additional findings. IMPRESSION: 1. Right basilar opacification could represent pneumonia which appears worse than prior. 2. Small right pleural effusion. - Medical Decision Making 86-year-old female presents to the hospital for recurrent hypoglycemia. Patient met her here twice this month for same. Patient also noted to have worsening right lower lobe infiltrate after recent in-hospital treatment for healthcare associated pneumonia with Covid positive test. Other x-ray that showed worsening right lower lobe infiltrate patient does not have hypoxia, fever, or worsening leukocytosis. She was empirically treated with vancomycin and cefepime after blood cultures ordered. Patient provided with multiple orange juices with sugar added but continued to have recurrent hypoglycemia. IV D10 and D10 infusion initiated in the ED. Patient required physical restraints due to intermittent confusion with hypoglycemia resulting in her pulling out her IV. Patient has poor peripheral access requiring IJ placement. Patient did not receive dialysis today however, no signs of hyperkalemia or volume overload requiring emergent dialysis at this time Critical Care Time: Yes Critical care attestation.: If time is entered above; I have spent that time in minutes in the direct care of this critically ill patient, excluding procedure time. Critical Care Time: 35 Minutes of critical care time excluding procedures were used in the care of the patient. I came immediately to the bedside upon patient's arrival. I obtained history from EMS at the bedside. I discussed treatment plan with the nursing team members. I reviewed electronic record. Patient required multiple interventions and reassessments. ED Disposition Clinical Impression: Hypoglycemia, Pneumonia, Missed dialysis Disposition: 09 ADMITTED INPATIENT Is pt being admited?: Yes Condition: Stable Instructions: Bacterial Pneumonia (ED) Referrals: PRIMARY CARE, [Primary Care Provider] - 3-5 Days
--- NOTE | 2021-08-31 19:05 | XRay Report ---
XR chest 1V ap INDICATION / CLINICAL INFORMATION: hypoglycemic, recent pneumonia, missed dialysis COMPARISON: None available. FINDINGS: SUPPORT DEVICES: None. HEART / MEDIASTINUM: No significant abnormality. LUNGS / PLEURA: Worsening right basilar opacity. Blunting right costophrenic sulcus. No pneumothorax. ADDITIONAL FINDINGS: No significant additional findings. IMPRESSION: 1. Right basilar opacification could represent pneumonia which appears worse than prior. 2. Small right pleural effusion. Signer Name: Margarito Westbrook MD Signed: 08/31/2021 7:01 PM Workstation Name: [id number]
[2021-08-31 19:15] LABS: Basophils # (Auto) 0.1 K/mm3 (0.0-0.1); Basophils % (Auto) 0.6 % (0.0-1.8); Eosinophils # (Auto) 0.3 K/mm3 (0.0-0.4); Eosinophils % (Auto) 2.8 % (0.0-4.3); Hematocrit 33.8 % (30.3-42.9); Hemoglobin 11.3 gm/dl (10.1-14.3); Lymphocytes # (Auto) 1.1 K/mm3 (1.2-5.4); Mean Corpuscular HGB Conc 33 % (30-34); Mean Corpuscular Volume 91 fl (79-97); Monocytes # (Auto) 0.5 K/mm3 (0.0-0.8); Monocytes % (Auto) 5.1 % (0.0-7.3); Platelet Count 491 K/mm3 (140-440); Red Blood Count 3.73 M/mm3 (3.65-5.03); Red Cell Distribution Width 19.7 % (13.2-15.2)
[2021-08-31 19:42] LABS: Calcium 8.3 mg/dL (8.4-10.2)
[2021-08-31] MEDS ORDERED: CEFEPIME/NS 2 GM/100 ML 2 GM/100 ML BAG IV ONE (20:38)
[2021-08-31] MEDS ORDERED: VANCOMYCIN PHARMACY TO DOSE IV SCH (21:00)
[2021-08-31] MEDS ORDERED: VANCOMYCIN/NS 1 GM/250 ML 1 GM/250 ML BAG IV ONE (21:00)
[2021-08-31] MEDS ORDERED: DEXTROSE 10% *Hypoglycemia IV ONE (21:28)
[2021-08-31] MEDS: DEXTROSE 10% IN WATER 1,000 ML IV SCH (21:35)
[2021-08-31] MEDS ORDERED: MAGNESIUM HYDROXIDE (MOM) ORAL LIQD UDC PO PRN (22:00)
[2021-08-31] MEDS ORDERED: MORPHINE 4 MG/1 ML INJ IV PRN (22:00)
[2021-08-31] MEDS ORDERED: ONDANSETRON 4 MG/2 ML INJ IV PRN (22:00)
[2021-08-31] MEDS ORDERED: DEXTROSE 50% IN WATER (25GM) 50 ML SYRINGE IV PRN (22:00)
[2021-08-31] MEDS ORDERED: ACETAMINOPHEN 325 MG TAB PO PRN (22:00)
[2021-08-31] MEDS ORDERED: MORPHINE 2 MG/1 ML INJ IV PRN (22:00)
[2021-08-31] MEDS ORDERED: CEFEPIME/NS 2 GM/100 ML 2 GM/100 ML BAG IV SCH (22:00)
--- NOTE | 2021-08-31 22:15 | History and Physical Report ---
History of Present Illness Date of examination: 08/31/21 Date of admission: 08/31/2021 Chief complaint: Decreased responsiveness Hypoglycemia History of present illness: 86-year-old [place] female with known history of end-stage renal disease on dialysis, diabetes mellitus, hypertension, recent Covid with hospital-acquired pneumonia brought into the emergency room today for hypoglycemia. Patient was said to be in the dialysis unit and was not quite responsive. Blood glucose check at that time was about 34. Patient was subsequently given some oral glucose with improvement of blood glucose during to the 50s and later in the 90s. Repeat glucose again showed a drop in the blood glucose to the 40s. Patient subsequently started on D10 IV fluid. Patient has been in the hospital on multiple occasions recently was just discharged from the hospital about 2 days ago for changes in mental status, hypoglycemia and hospital-acquired pneumonia/possible aspiration resulting in intubation. Patient missed her dialysis today secondary to the hypoglycemic episode. Work-up in the emergency room today, significant findings on the labs were mild hypokalemia of 3.4. Chest x-ray shows a right basilar opacification which could represent pneumonia which appears worse than prior. Small right pleural effusion. Patient has been admitted with hypoglycemia and also possible underlying worsening pneumonia. Past History Past Medical History: acute ID, arthritis, diabetes, dialysis, DVT, ESRD, heart failure, hypertension, migraines Past Surgical History: Other (Upper extremity fistula, right upper extremity fistula.) Social history: no significant social history Family history: no significant family history Medications and Allergies Allergies Allergy/AdvReac Type Severity Reaction Status Date / Time No Known Allergies Allergy Verified 08/25/21 09:27 Home Medications Medication Instructions Recorded Confirmed Last Taken Type amLODIPine 10 mg PO DAILY #30 tablet 01/31/20 08/25/21 Unknown Rx Diclofenac 1% [Diclofenac 1% 2 - 4 gm TP QID 08/12/21 08/25/21 Unknown History topical gel] Gabapentin 300 mg PO BID 08/12/21 08/25/21 Unknown History Mirtazapine [Remeron 15mg TAB] 15 mg PO QHS 08/12/21 08/25/21 Unknown History cloNIDine [Catapres] 0.1 mg PO BID 08/12/21 08/25/21 Unknown History Famotidine [Pepcid] 20 mg PO QAM #30 tablet 02/14/22 02/22/22 Unknown Rx Zinc Sulfate [Zinc] 220 mg PO BID #30 08/17/21 08/25/21 Unknown Rx Active Meds: Active Medications Acetaminophen (Acetaminophen 325 Mg Tab) 650 mg PO Q4H PRN PRN Reason: Pain MILD(1-3)/Fever >100.5/MEHTA Dextrose (Dextrose 50% In Water (25gm) 50 Ml Syringe) 50 ml IV Q30MIN PRN; Protocol PRN Reason: Hypoglycemia Heparin Sodium (Porcine) (Heparin 5,000 Unit/1 Ml Vial) 5,000 unit SUB-Q Q8HR ANAHY Vancomycin HCl (Vancomycin/Ns 1 Gm/250 Ml) 1 gm in 250 mls @ 166.667 mls/hr IV ONCE ONE; Protocol Stop: 08/31/21 22:29 Dextrose (D10w) 1,000 mls @ 125 mls/hr IV DIRECT ANAHY Last Admin: 08/31/21 21:35 Dose: 125 mls/hr Cefepime HCl (Cefepime/Ns 2 Gm/100 Ml) 2 gm in 100 mls @ 200 mls/hr IV Q8H ANAHY; Protocol Magnesium Hydroxide (Magnesium Hydroxide (Mom) Oral Liqd Udc) 30 ml PO Q4H PRN PRN Reason: Constipation Morphine Sulfate (Morphine 2 Mg/1 Ml Inj) 2 mg IV Q4H PRN PRN Reason: Pain, Moderate (4-6) Morphine Sulfate (Morphine 4 Mg/1 Ml Inj) 4 mg IV Q4H PRN PRN Reason: Pain , Severe (7-10) Ondansetron HCl (Ondansetron 4 Mg/2 Ml Inj) 4 mg IV Q8H PRN PRN Reason: Nausea And Vomiting Sodium Chloride (Sodium Chloride 0.9% 10 Ml Flush Syringe) 10 ml IV BID ANAHY Sodium Chloride (Sodium Chloride 0.9% 10 Ml Flush Syringe) 10 ml IV PRN PRN PRN Reason: LINE FLUSH Review of Systems Constitutional: no fever, no chills Ears, nose, mouth and throat: no nasal congestion, no sore throat Cardiovascular: no chest pain, no palpitations Respiratory: no cough, no shortness of breath Gastrointestinal: no abdominal pain, no nausea, no vomiting, no diarrhea Genitourinary Female: no pelvic pain, no flank pain, no dysuria, no hematuria Musculoskeletal: no neck pain, no low back pain Integumentary: no rash, no pruritis Neurological: change in mentation, no headaches Psychiatric: no anxiety, no depression Endocrine: no polyphagia, no polydipsia, no polyuria Exam - Constitutional Vitals: Temp Pulse Resp BP Pulse Ox 98.8 F 107 H 99 H 176/69 99 08/31/21 19:41 08/31/21 19:45 08/31/21 20:11 08/31/21 20:01 08/31/21 20:11 General appearance: Present: no acute distress, well-nourished - EENT Eyes: Present: PERRL, EOM intact. Absent: scleral icterus ENT: hearing intact, clear oral mucosa, dentition normal - Neck Neck: Present: supple, normal ROM - Respiratory Respiratory effort: normal Respiratory: bilateral: diminished - Cardiovascular Rhythm: regular Heart Sounds: Present: S1 & S2. Absent: gallop, systolic murmur, diastolic murmur, rub, click - Extremities Extremities: no ischemia, pulses intact, pulses symmetrical, No edema, normal temperature, Full ROM Peripheral Pulses: within normal limits - Abdominal General gastrointestinal: Present: soft, non-tender, non-distended, normal bowel sounds. Absent: mass - Integumentary Integumentary: Present: clear, warm, dry, normal turgor. Absent: rash - Musculoskeletal Musculoskeletal: strength equal bilaterally - Psychiatric Psychiatric: appropriate mood/affect, intact judgment & insight, memory intact, cooperative - Neurologic Neurologic: CNII-XII intact, no focal deficits, moves all extremities Results - Labs CBC & Chem 7: 08/31/21 18:26 08/31/21 18:26 Labs: Abnormal lab results 08/31/21 08/31/21 08/31/21 Range/Units 18:08 18:26 18:26 RDW 19.7 H (13.2-15.2) % Plt Count 491 H (140-440) K/mm3 Lymph % (Auto) 11.0 L (13.4-35.0) % Lymph # (Auto) 1.1 L (1.2-5.4) K/mm3 Seg Neutrophils % 80.5 H (40.0-70.0) % Seg Neutrophils # 7.8 H (1.8-7.7) K/mm3 Potassium 3.4 L D (3.6-5.0) mmol/L BUN 43 H (7-17) mg/dL Creatinine 4.6 H (0.6-1.2) mg/dL POC Glucose 52 L (70-105) mg/dL Calcium 8.3 L (8.4-10.2) mg/dL NT-Pro-B Natriuret Pep (0-900) pg/mL 08/31/21 08/31/21 08/31/21 Range/Units 19:21 20:18 21:19 RDW (13.2-15.2) % Plt Count (140-440) K/mm3 Lymph % (Auto) (13.4-35.0) % Lymph # (Auto) (1.2-5.4) K/mm3 Seg Neutrophils % (40.0-70.0) % Seg Neutrophils # (1.8-7.7) K/mm3 Potassium (3.6-5.0) mmol/L BUN (7-17) mg/dL Creatinine (0.6-1.2) mg/dL POC Glucose 57 L 44 L (70-105) mg/dL Calcium (8.4-10.2) mg/dL NT-Pro-B Natriuret Pep 37968 H (0-900) pg/mL Assessment and Plan - Patient Problems (1) Hypoglycemia Current Visit: Yes Status: Acute Plan to address problem: Patient placed on D10 IV fluid. We will monitor Accu-Cheks q. hourly (2) ESRD (end stage renal disease) on dialysis Current Visit: No Status: Chronic Plan to address problem: Consult placed to lawn mower repairer for dialysis. Patient missed her dialysis today secondary to the hypoglycemic episode. (3) COVID-19 Current Visit: No Status: Acute Plan to address problem: Patient was recently diagnosed with COVID-19. She also had a hospital-acquired pneumonia. Consult will be placed to infectious disease for further evaluation and recommendations. Placed on empiric IV antibiotics. 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 Currently hypoglycemic. We will monitor Accu-Cheks closely. (5) HTN (hypertension), benign Current Visit: No Status: Chronic Plan to address problem: Will resume routine home medications and monitor vital signs closely. (6) DVT prophylaxis Current Visit: No Status: Acute Plan to address problem: Patient placed on subcutaneous heparin. (7) Full code status Current Visit: Yes Status: Acute Plan to address problem: Patient is full code.
[2021-08-31] MEDS ORDERED: DEXTROSE 10% *Hypoglycemia IV PRN (22:34)
[2021-09-01] MEDS ORDERED: LIDOCAINE 2% JELLY 30 ML TP ONE (03:51)
[2021-09-01] MEDS ORDERED: VANCOMYCIN PHARMACY TO DOSE IV SCH (04:00)
[2021-09-01] MEDS ORDERED: LIDOCAINE PF 100 MG/5 ML (CARDIAC SYRINGE) IV ONE (04:04)
[2021-09-01] MEDS ORDERED: LIDOCAINE (1%) 10 MG/1 ML VIAL 20 ML MDV INFILTRATI ONE (04:08)
[2021-09-01] MEDS: HEPARIN 5,000 UNIT/1 ML VIAL SUB-Q SCH ×3 (05:32→21:16)
--- NOTE | 2021-09-01 08:19 | Event Note ---
Date: 09/01/21 Spoke extensively to the Grandson, he is unfortunately not aware of the meds the patient takes and says when he goes to the house it is quit confusing what she takes and does not take. He says that some time she eats and sometime her BG is 180, he is not sure what she takes. He says that they are waiting to take her to PCP to reconcile all her meds. I have offered them to bring the meds at the house to the hospital and we can review and help them. I have also encouraged that they reconsider the stance on PEG tube due to her poor appetite, likely due to her underlying Dementia and the grave risk associated with recurrent hypoglycemia. He verbalized understanding and will speak with the rest of the family. In the mean time will continue current management. Full note to follow
--- NOTE | 2021-09-01 09:35 | Progress Note ---
Subjective Date of service: 09/01/21 Principal diagnosis: esrd Interval history: 86-year-old Turkmen female with a past medical history of diabetes, end-stage renal disease on dialysis, hypertension, recent Covid with hospital-acquired pneumonia presents to the hospital for the third time this month for hypoglycemia. Patient was admitted here on August 11 and for significant alteration in mental status with hypoglycemia. Patient was most recently discharged on the (2 days ago) for altered mental status/hypoglycemia requiring intubation and was treated with healthcare a ssociated pneumonia/possible aspiration, and patient was also Covid positive during both admissions. Patient apparently had an Accu-Chek of 34 upon arrival to dialysis and was less indurated than usual. EMS provided 15 g of glucose. They did notice that patient had residual food in her mouth upon removal of her dentures. Data Sciences Director used and patient currently denies any pain and reports being cold. She is oriented to self, date of , but not to year. Patient did not receive dialysis today. At this time I am not clear if patient is on current diabetes medication based on medical record review Impression * End-stage renal disease on maintenance hemodialysis * Acute hypoxic respiratory failure * COVID-19 pneumonia * Hypokalemia * hypoglycemia * Hyponatremia * Anemia secondary to ESRD * Diabetes * Hypertension * Hypocalcemia Recommendations * Continue hemodialysis MWF or prn * UF as tolerated * Maintain MAP>65 - pressors prn * Antibiotic therapy as per primary team and infectious diseases * Adjust diet and meds for ESRD state * Epogen with dialysis * No IV, BP or venipuncture in her access arm * Avoid nephrotoxins * Monitor fluid status and electrolytes closely * [facility] outpatient * needs Hospice/palliative care discussion, not great group home hd candidate Subjective Principal diagnosis: AHRF; Sepsis; Possible Aspiration; AMS; ESRD; HFpEF; Leukocytosis Interval history: Resting in bed, no acute issues issues noted Objective - Exam Narrative Exam: Patient not directly examined today due to COVID-19 pandemic, need to limit PPE overuse Objective - Vital Signs Vital signs: Vital Signs - 12hr 08/31/21 08/31/21 08/31/21 21:45 22:01 22:15 Temperature Pulse Rate 105 H Pulse Rate [ From Monitor] Respiratory 19 20 24 Rate Blood Pressure 178/68 178/67 177/74 Blood Pressure [Left] O2 Sat by Pulse 99 99 100 Oximetry 08/31/21 08/31/21 08/31/21 22:31 22:39 22:40 Temperature 98.9 F Pulse Rate 114 H 114 H Pulse Rate [ From Monitor] Respiratory 21 21 Rate Blood Pressure 171/66 171/66 Blood Pressure [Left] O2 Sat by Pulse 99 99 Oximetry 08/31/21 08/31/21 08/31/21 22:41 22:51 23:01 Temperature Pulse Rate 110 H 115 H 113 H Pulse Rate [ From Monitor] Respiratory 22 23 21 Rate Blood Pressure 182/73 182/73 162/71 Blood Pressure [Left] O2 Sat by Pulse 95 99 98 Oximetry 08/31/21 08/31/21 08/31/21 23:11 23:21 23:31 Temperature Pulse Rate 117 H 117 H 113 H Pulse Rate [ From Monitor] Respiratory 25 H 20 24 Rate Blood Pressure 171/66 171/66 174/54 Blood Pressure [Left] O2 Sat by Pulse 92 98 99 Oximetry 08/31/21 08/31/21 08/31/21 23:37 23:41 23:51 Temperature Pulse Rate 113 H 109 H Pulse Rate [ From Monitor] Respiratory 17 23 24 Rate Blood Pressure 175/68 175/68 Blood Pressure [Left] O2 Sat by Pulse 94 98 Oximetry 09/01/21 09/01/21 09/01/21 00:01 00:11 00:21 Temperature Pulse Rate 113 H 114 H 110 H Pulse Rate [ From Monitor] Respiratory 21 22 21 Rate Blood Pressure 176/78 184/68 184/68 Blood Pressure [Left] O2 Sat by Pulse 99 95 99 Oximetry 09/01/21 09/01/21 09/01/21 00:31 00:41 00:51 Temperature Pulse Rate 117 H 111 H 110 H Pulse Rate [ From Monitor] Respiratory 24 19 24 Rate Blood Pressure 173/74 164/67 164/67 Blood Pressure [Left] O2 Sat by Pulse 99 95 99 Oximetry 09/01/21 09/01/21 09/01/21 01:01 01:11 01:21 Temperature Pulse Rate 120 H 115 H 114 H Pulse Rate [ From Monitor] Respiratory 24 22 25 H Rate Blood Pressure 161/70 178/71 178/71 Blood Pressure [Left] O2 Sat by Pulse 99 93 99 Oximetry 09/01/21 09/01/21 09/01/21 01:31 02:05 02:09 Temperature 98.7 F Pulse Rate 114 H 104 H Pulse Rate [ From Monitor] Respiratory 26 H 21 Rate Blood Pressure 175/71 120/49 Blood Pressure 170/60 [Left] O2 Sat by Pulse 97 98 Oximetry 09/01/21 09/01/21 09/01/21 02:10 03:52 04:10 Temperature 98.5 F Pulse Rate 55 L Pulse Rate [ From Monitor] Respiratory 20 19 Rate Blood Pressure Blood Pressure [Left] O2 Sat by Pulse 100 99 79 L Oximetry 09/01/21 09/01/21 09/01/21 04:15 04:28 04:30 Temperature 100 F H Pulse Rate 106 H Pulse Rate [ From Monitor] Respiratory 22 Rate Blood Pressure Blood Pressure [Left] O2 Sat by Pulse 99 98 Oximetry 09/01/21 09/01/21 09/01/21 04:40 04:50 05:00 Temperature Pulse Rate 105 H 99 H 95 H Pulse Rate [ From Monitor] Respiratory 20 19 20 Rate Blood Pressure 156/64 156/64 144/65 Blood Pressure [Left] O2 Sat by Pulse 99 100 100 Oximetry 09/01/21 09/01/21 09/01/21 05:10 05:20 05:30 Temperature Pulse Rate 94 H 97 H 104 H Pulse Rate [ From Monitor] Respiratory 16 21 20 Rate Blood Pressure 156/64 156/64 156/64 Blood Pressure [Left] O2 Sat by Pulse 100 99 100 Oximetry 09/01/21 09/01/21 09/01/21 05:40 05:50 06:00 Temperature Pulse Rate 98 H 100 H 98 H Pulse Rate [ From Monitor] Respiratory 19 19 19 Rate Blood Pressure 156/64 156/64 158/74 Blood Pressure [Left] O2 Sat by Pulse 99 100 99 Oximetry 09/01/21 09/01/21 09/01/21 06:10 06:20 06:30 Temperature Pulse Rate 97 H 97 H 98 H Pulse Rate [ From Monitor] Respiratory 19 16 18 Rate Blood Pressure 158/74 158/74 158/74 Blood Pressure [Left] O2 Sat by Pulse 100 100 100 Oximetry 09/01/21 09/01/21 09/01/21 06:40 06:50 07:00 Temperature Pulse Rate 100 H 109 H 97 H Pulse Rate [ From Monitor] Respiratory 17 22 16 Rate Blood Pressure 158/74 158/74 161/61 Blood Pressure [Left] O2 Sat by Pulse 99 99 100 Oximetry 09/01/21 09/01/21 09/01/21 07:10 07:20 07:30 Temperature Pulse Rate 98 H 96 H 99 H Pulse Rate [ From Monitor] Respiratory 21 13 18 Rate Blood Pressure 161/61 161/61 161/61 Blood Pressure [Left] O2 Sat by Pulse 99 100 99 Oximetry 09/01/21 09/01/21 09/01/21 07:31 07:32 07:40 Temperature 98.1 F Pulse Rate 97 H 102 H Pulse Rate [ From Monitor] Respiratory 19 Rate Blood Pressure 161/61 Blood Pressure [Left] O2 Sat by Pulse 98 Oximetry 09/01/21 09/01/21 09/01/21 07:50 07:52 08:00 Temperature 99.9 F H Pulse Rate 101 H Pulse Rate [ 102 H From Monitor] Respiratory 19 17 Rate Blood Pressure 161/61 Blood Pressure [Left] O2 Sat by Pulse 98 100 Oximetry - Lab 08/31/21 18:26 08/31/21 18:26 Most recent lab results Calcium 8.3 mg/dL (8.4-10.2) L 08/31/21 18:26 Medications & Allergies - Medications Allergies/Adverse Reactions: Allergies No Known Allergies Allergy (Verified 08/25/21 09:27) Home Medications: Home Medications Medication Instructions Recorded Confirmed Last Taken Type amLODIPine 10 mg PO DAILY #30 tablet 01/31/20 08/25/21 Unknown Rx Diclofenac 1% [Diclofenac 1% 2 - 4 gm TP QID 08/12/21 08/25/21 Unknown History topical gel] Gabapentin 300 mg PO BID 08/12/21 08/25/21 Unknown History Mirtazapine [Remeron 15mg TAB] 15 mg PO QHS 08/12/21 08/25/21 Unknown History cloNIDine [Catapres] 0.1 mg PO BID 08/12/21 08/25/21 Unknown History Famotidine [Pepcid] 20 mg PO QAM #30 tablet 08/17/21 08/25/21 Unknown Rx Zinc Sulfate [Zinc] 220 mg PO BID #30 08/17/21 08/25/21 Unknown Rx Active Medications: Generic Name Dose Route Start Last Admin Trade Name Freq PRN Reason Stop Dose Admin Acetaminophen 650 mg 08/31/21 22:00 Acetaminophen 325 Mg Tab PO Q4H PRN Pain MILD(1-3)/Fever >100.5/MEHTA Dextrose 0 ml 08/31/21 22:34 Dextrose 10% *Hypoglycemia IV PRN PRN Hypoglycemia Heparin Sodium (Porcine) 5,000 unit 09/01/21 06:00 09/01/21 05:32 Heparin 5,000 Unit/1 Ml Vial SUB-Q 5,000 unit Q8HR ANAHY Administration Dextrose 1,000 mls @ 50 mls/hr 08/31/21 22:00 09/01/21 01:54 D10w IV 125 mls/hr DIRECT ANAHY Infusion Cefepime HCl 1 gm in 100 mls @ 200 mls/hr 08/31/21 23:00 Cefepime/Ns 1 Gm/100 Ml IV Q24H ANAHY Protocol Magnesium Hydroxide 30 ml 08/31/21 22:00 Magnesium Hydroxide (Mom) Oral Liqd Udc PO Q4H PRN Constipation Morphine Sulfate 2 mg 08/31/21 22:00 Morphine 2 Mg/1 Ml Inj IV Q4H PRN Pain, Moderate (4-6) Morphine Sulfate 4 mg 08/31/21 22:00 08/31/21 23:37 Morphine 4 Mg/1 Ml Inj IV 4 mg Q4H PRN Administration Pain , Severe (7-10) Ondansetron HCl 4 mg 08/31/21 22:00 Ondansetron 4 Mg/2 Ml Inj IV Q8H PRN Nausea And Vomiting Sodium Chloride 10 ml 08/31/21 22:00 08/31/21 22:00 Sodium Chloride 0.9% 10 Ml Flush Syringe IV 10 ml BID ANAHY Administration Sodium Chloride 10 ml 08/31/21 22:00 Sodium Chloride 0.9% 10 Ml Flush Syringe IV PRN PRN LINE FLUSH
[2021-09-01] MEDS ORDERED: SODIUM CHLORIDE 0.9% 100 ML IV PRN (09:37)
--- NOTE | 2021-09-01 10:47 | Progress Note ---
<JUAN JOSÉ MCLAUGHLIN - Last Filed: 09/01/21 19:55> Assessment and Plan Assessment and plan: This is a 86-year-old [place] female with known history of end-stage renal disease on dialysis, diabetes mellitus, hypertension, with recent hospitalizations for hypoglycemia and acute respiratory failure 2/2 COVID pneumonia requiring ventilatory support. Admitted this time again for hypoglycemia while in HD. Hospital Course to Date: 09/01: Patient is now awake and alert, stable on RA. Remains on D10w gtt, BG improved. Report that patient is coughing after PO intake, will keep patient NPO for now. D10w reduced to 50, speech eval ordered. Thorough discussion with patient's family by the attending today. Patient is to remains a full code, family opted for PEG tube insertion, GI consulted. Patient CXR noted probably secondary to possible aspiration versus previous COVID pneumonia, patient is stable on RA, with normal WBcs, and afebrile. Will defer IV Abx management to ID. Assessment and Plan #Hypoglycemia #H/o Diabetes - most likely due to low PO intake and patient was still received PO glycemic regimen at home - BG improved on D10w - Continue D10 gtt for now since patient is NPO - Continue SSI Q6hrs - Avoid Hypoglycemia - Continue Hypoglycemic protocol #Right Basilar Pneumonia #Possible Aspiration #Recently treated for COVID Pneumonia - Chest x-ray shows a right basilar opacification which could represent pneumonia which appears worse than prior. Small right pleural effusion. - Patient remains stable on RA, SPO2 above 95% - Patient remains afebrile, WBCs normal - Blood culture with NGTD - Continue IV Abx per ID - O2 supplemetation as needed - Continue SPO2 monitoring for SPO2 goal above 92% - Continue to F/U on culture data #Poor Oral Intake #Dysphagia - family reported poor oral intake at home - Per nursing staffs patient is coughing with PO intake - Will keep patient NPO for now - D10w decreased, continue for now - Speech eval and treat ordered - Nutrition consulted - Thorough discussion with patient's family, opted for PEG tube insertion - GI consulted for PEG insertion #ESRD (End stage Renal Disease) on Dialysis #Hypokalemia #Hyponatremia - Nephrology on consult, appreciated recommendation - Continue HD per Nephro - Strict intake and output - Avoid nephrotoxic medications; Renally dose medications - Monitor and replace electrolytes as needed - Trend BMP #HTN (Hypertension), benign - Home antihypertensive regimen resumed - Continue blood pressure monitor per protocol - Maintain SBP less than 160 #Anemia secondary to ESRD - H&H is stable - Continue to trend CBC - Epogen with HD per Nephro #GI/DVT Prophylaxis - PPI- Pepcid - Continue AC- Heparin SubQ - SCDs to bilateral lower extremities while in bed The high probability of a clinically significant, sudden or life threatening deterioration of the [multiple] system(s) required my full and direct attention, intervention and personal management. The aggregate critical care time was [90] minutes. This time is in addition to time spent performing reported procedures but includes the following: [x] Data Review and interpretation [x] Patient assessment and monitoring of vital signs [x] Documentation [x] Medication orders and management Disposition Plan: IMCU Total Time Spent with Patient (Minutes): 90 History Interval history: Patient seen and examined at the bedside. Awake and alert, on RA, following simple commands. Patient remains on D10w gtt. Per RN patient with significant cough with PO intake this am, otherwise SIVAKUMAR overnight Hospitalist Physical - Constitutional Vitals: Temp Pulse Resp BP Pulse Ox 99.9 F H 102 H 17 161/61 100 09/01/21 08:00 09/01/21 07:52 09/01/21 07:52 09/01/21 07:50 09/01/21 07:52 General appearance: Present: no acute distress, well-nourished - EENT Eyes: Present: PERRL ENT: hearing intact, clear oral mucosa - Neck Neck: Present: normal ROM - Respiratory Respiratory effort: normal Respiratory: bilateral: diminished - Cardiovascular Rhythm: regular Heart Sounds: Present: S1 & S2 - Extremities Extremities: no ischemia, pulses intact, pulses symmetrical Extremity abnormal: edema - Peripheral Assessment Generalized Edema Type: Non-pitting Edema Degree: 2+ Capillary Refill: < 3 seconds Skin Temperature: Warm Peripheral Pulses: within normal limits - Abdominal General gastrointestinal: soft, non-distended, normal bowel sounds - Integumentary Integumentary: Present: warm, dry - Psychiatric Psychiatric: appropriate mood/affect, cooperative - Neurologic Neurologic: moves all extremities - Allied Health Allied health notes reviewed: nursing Results - Labs CBC & Chem 7: 08/31/21 18:26 09/01/21 11:02 Labs: Laboratory Last Values WBC 9.7 K/mm3 (4.5-11.0) 08/31/21 18: RBC 3.73 M/mm3 (3.65-5.03) 08/31/21 18: Hgb 11.3 gm/dl (10.1-14.3) 08/31/21 18: Hct 33.8 % (30.3-42.9) 08/31/21 18: MCV 91 fl (79-97) 08/31/21 18: MCH 30 pg (28-32) 08/31/21 18: MCHC 33 % (30-34) 08/31/21 18: RDW 19.7 % (13.2-15.2) H 08/31/21 18: Plt Count 491 K/mm3 (140-440) H 08/31/21 18:26 Lymph % (Auto) 11.0 % (13.4-35.0) L 08/31/21 18: [place] % (Auto) 5.1 % (0.0-7.3) 08/31/21 18: Eos % (Auto) 2.8 % (0.0-4.3) 08/31/21 18: Baso % (Auto) 0.6 % (0.0-1.8) 08/31/21 18: Lymph # (Auto) 1.1 K/mm3 (1.2-5.4) L 08/31/21 18:26 [place] # (Auto) 0.5 K/mm3 (0.0-0.8) 08/31/21 18: Eos # (Auto) 0.3 K/mm3 (0.0-0.4) 08/31/21 18: Baso # (Auto) 0.1 K/mm3 (0.0-0.1) 08/31/21 18: Seg Neutrophils % 80.5 % (40.0-70.0) H 08/31/21 18:26 Seg Neutrophils # 7.8 K/mm3 (1.8-7.7) H 08/31/21 18:26 Sodium 141 mmol/L (137-145) 08/31/21 18:26 Potassium 3.4 mmol/L (3.6-5.0) L D 08/31/21 18:26 Chloride 99.7 mmol/L (98-107) 08/31/21 18:26 Carbon Dioxide 26 mmol/L (22-30) 08/31/21 18:26 Anion Gap 19 mmol/L 08/31/21 18:26 BUN 43 mg/dL (7-17) H 08/31/21 18:26 Creatinine 4.6 mg/dL (0.6-1.2) H 08/31/21 18:26 Estimated GFR 9 ml/min 08/31/21 18:26 BUN/Creatinine Ratio 9 % 08/31/21 18:26 Glucose 78 mg/dL (65-100) 08/31/21 18:26 POC Glucose 100 mg/dL (70-105) 09/01/21 10:37 Calcium 8.3 mg/dL (8.4-10.2) L 08/31/21 18:26 NT-Pro-B Natriuret Pep 16959 pg/mL (0-900) H 08/31/21 20:18 Microbiology: Microbiology 08/31/21 20:25 Peripheral/Venous Blood Culture - Preliminary Culture in Progress 08/31/21 20:18 Peripheral/Venous Blood Culture - Preliminary Culture in Progress [place]/IV: Voiding Method Incontinent Active Medications - Current Medications Current Medications: Generic Name Dose Route Start Last Admin Trade Name Freq PRN Reason Stop Dose Admin Acetaminophen 650 mg 08/31/21 22:00 Acetaminophen 325 Mg Tab PO Q4H PRN Pain MILD(1-3)/Fever >100.5/MEHTA Dextrose 0 ml 08/31/21 22:34 Dextrose 10% *Hypoglycemia IV PRN PRN Hypoglycemia Heparin Sodium (Porcine) 5,000 unit 09/01/21 06:00 09/01/21 05:32 Heparin 5,000 Unit/1 Ml Vial SUB-Q 5,000 unit Q8HR ANAHY Administration Dextrose 1,000 mls @ 50 mls/hr 08/31/21 22:00 09/01/21 01:54 D10w IV 125 mls/hr DIRECT ANAHY Infusion Cefepime HCl 1 gm in 100 mls @ 200 mls/hr 08/31/21 23:00 Cefepime/Ns 1 Gm/100 Ml IV Q24H ANAHY Protocol Sodium Chloride 100 mls @ 999 mls/hr 09/01/21 09:37 Nacl 0.9% IV LEVI PRN Hypotension Magnesium Hydroxide 30 ml 08/31/21 22:00 Magnesium Hydroxide (Mom) Oral Liqd Udc PO Q4H PRN Constipation Morphine Sulfate 2 mg 08/31/21 22:00 Morphine 2 Mg/1 Ml Inj IV Q4H PRN Pain, Moderate (4-6) Morphine Sulfate 4 mg 08/31/21 22:00 08/31/21 23:37 Morphine 4 Mg/1 Ml Inj IV 4 mg Q4H PRN Administration Pain , Severe (7-10) Ondansetron HCl 4 mg 08/31/21 22:00 Ondansetron 4 Mg/2 Ml Inj IV Q8H PRN Nausea And Vomiting Paricalcitol 2 mcg 09/01/21 09:37 Paricalcitol 2 Mcg/1 Ml Inj IV LEVI PRN hemodialysis Sodium Chloride 10 ml 08/31/21 22:00 08/31/21 22:00 Sodium Chloride 0.9% 10 Ml Flush Syringe IV 10 ml BID ANAHY Administration Sodium Chloride 10 ml 08/31/21 22:00 Sodium Chloride 0.9% 10 Ml Flush Syringe IV PRN PRN LINE FLUSH <JENNIFER CARRILLO - Last Filed: 09/02/21 07:36> Assessment and Plan Assessment and plan: I saw and evaluated the patient. I agree with the findings and the plan of care as documented in the Nurse Practitioner's~note, with the following corrections and additions. Had extensive discussion with family., They are ok with proceeding with PEG placement due to intermittent eating by the patient. Hospitalist Physical - Constitutional Vitals: Temp Pulse Resp BP Pulse Ox 99.2 F 100 H 22 114/75 99 09/02/21 04:00 09/02/21 06:20 09/02/21 06:20 09/02/21 06:20 09/02/21 06:20 Results - Labs CBC & Chem 7: 09/02/21 04:17 09/02/21 04:17 Labs: Laboratory Last Values WBC 9.7 K/mm3 (4.5-11.0) 09/02/21 04:17 RBC 3.20 M/mm3 (3.65-5.03) L 09/02/21 04:17 Hgb 9.8 gm/dl (10.1-14.3) L 09/02/21 04:17 Hct 28.6 % (30.3-42.9) L 09/02/21 04:17 MCV 89 fl (79-97) 09/02/21 04:17 MCH 31 pg (28-32) 09/02/21 04:17 MCHC 34 % (30-34) 09/02/21 04:17 RDW 19.8 % (13.2-15.2) H 09/02/21 04:17 Plt Count 445 K/mm3 (140-440) H 09/02/21 04:17 Lymph % (Auto) 11.0 % (13.4-35.0) L 08/31/21 18:26 [place] % (Auto) 5.1 % (0.0-7.3) 08/31/21 18:26 Eos % (Auto) 2.8 % (0.0-4.3) 08/31/21 18:26 Baso % (Auto) 0.6 % (0.0-1.8) 08/31/21 18:26 Lymph # (Auto) 1.1 K/mm3 (1.2-5.4) L 08/31/21 18:26 [place] # (Auto) 0.5 K/mm3 (0.0-0.8) 08/31/21 18:26 Eos # (Auto) 0.3 K/mm3 (0.0-0.4) 08/31/21 18:26 Baso # (Auto) 0.1 K/mm3 (0.0-0.1) 08/31/21 18:26 Seg Neutrophils % 80.5 % (40.0-70.0) H 08/31/21 18:26 Seg Neutrophils # 7.8 K/mm3 (1.8-7.7) H 08/31/21 18:26 Sodium 130 mmol/L (137-145) L 09/02/21 04:17 Potassium 3.5 mmol/L (3.6-5.0) L 09/02/21 04:17 Chloride 95.0 mmol/L (98-107) L 09/02/21 04:17 Carbon Dioxide 21 mmol/L (22-30) L 09/02/21 04:17 Anion Gap 18 mmol/L 09/02/21 04:17 BUN 41 mg/dL (7-17) H 09/02/21 04:17 Creatinine 4.5 mg/dL (0.6-1.2) H 09/02/21 04:17 Estimated GFR 9 ml/min 09/02/21 04:17 BUN/Creatinine Ratio 9 % 09/02/21 04:17 Glucose 112 mg/dL (65-100) H 09/02/21 04:17 POC Glucose 110 mg/dL (70-105) H 09/02/21 06:28 Calcium 7.8 mg/dL (8.4-10.2) L 09/02/21 04:17 Phosphorus 3.00 mg/dL (2.5-4.5) 09/02/21 04:17 Magnesium 1.90 mg/dL (1.7-2.3) 09/02/21 04:17 NT-Pro-B Natriuret Pep 93272 pg/mL (0-900) H 08/31/21 20:18 Hepatitis A IgM Ab Non-reactive (NonReactive) 09/01/21 11:02 Hep Bs Antigen Non-reactive (Negative) 09/01/21 11:02 Hep B Core IgM Ab Non-reactive (NonReactive) 09/01/21 11:02 Hepatitis C Antibody Non-reactive (NonReactive) 09/01/21 11:02 Microbiology: Microbiology 08/31/21 20:18 Peripheral/Venous Blood Culture - Preliminary NO GROWTH AFTER 24 HOURS 08/31/21 20:25 Peripheral/Venous Blood Culture - Preliminary NO GROWTH AFTER 24 HOURS [place]/IV: Voiding Method Incontinent Active Medications - Current Medications Current Medications: Generic Name Dose Route Start Last Admin Trade Name Freq PRN Reason Stop Dose Admin Acetaminophen 650 mg 08/31/21 22:00 Acetaminophen 325 Mg Tab PO Q4H PRN Pain MILD(1-3)/Fever >100.5/MEHTA Amlodipine Besylate 5 mg 09/02/21 10:00 Amlodipine 5 Mg Tab PO QDAY ANAHY Dextrose 0 ml 08/31/21 22:34 Dextrose 10% *Hypoglycemia IV PRN PRN Hypoglycemia Famotidine 20 mg 09/02/21 10:00 Famotidine 20 Mg/2 Ml Inj IV QDAY ANAHY Heparin Sodium (Porcine) 5,000 unit 09/01/21 06:00 09/02/21 05:12 Heparin 5,000 Unit/1 Ml Vial SUB-Q 5,000 unit Q8HR ANAHY Administration Dextrose 1,000 mls @ 50 mls/hr 08/31/21 22:00 09/01/21 18:14 D10w IV 50 mls/hr DIRECT ANAHY Administration Cefepime HCl 1 gm in 100 mls @ 200 mls/hr 08/31/21 23:00 09/01/21 22:19 Cefepime/Ns 1 Gm/100 Ml IV Not Given Q24H ANAHY Protocol Sodium Chloride 100 mls @ 999 mls/hr 09/01/21 09:37 Nacl 0.9% IV LEVI PRN Hypotension Magnesium Hydroxide 30 ml 08/31/21 22:00 Magnesium Hydroxide (Mom) Oral Liqd Udc PO Q4H PRN Constipation Morphine Sulfate 2 mg 08/31/21 22:00 Morphine 2 Mg/1 Ml Inj IV Q4H PRN Pain, Moderate (4-6) Morphine Sulfate 4 mg 08/31/21 22:00 08/31/21 23:37 Morphine 4 Mg/1 Ml Inj IV 4 mg Q4H PRN Administration Pain , Severe (7-10) Ondansetron HCl 4 mg 08/31/21 22:00 Ondansetron 4 Mg/2 Ml Inj IV Q8H PRN Nausea And Vomiting Paricalcitol 2 mcg 09/01/21 09:37 Paricalcitol 2 Mcg/1 Ml Inj IV LEVI PRN hemodialysis Senna 17.2 mg 09/02/21 22:00 Sennosides 8.6 Mg Tab PO QHS ANAHY Sodium Chloride 10 ml 08/31/21 22:00 09/01/21 21:16 Sodium Chloride 0.9% 10 Ml Flush Syringe IV 10 ml BID ANAHY Administration Sodium Chloride 10 ml 08/31/21 22:00 Sodium Chloride 0.9% 10 Ml Flush Syringe IV PRN PRN LINE FLUSH Nutrition/Malnutrition Assess - Dietary Evaluation Nutrition/Malnutrition Findings: Nutrition Notes Start: 09/01/21 14:11 Freq: Status: Active Protocol: Document 09/01/21 14:11 MIGUEL ANGEL (Rec: 09/01/21 15:04 MIGUEL ANGEL [email or web address]) Nutrition Notes Need for Assessment generated from: MD Order,labor operator,MST, Education Initial or Follow up Assessment Current Diagnosis CKD (stage V CKD),Diabetes, Hypertension,Heart Failure Other Pertinent Diagnosis Hypoglycemia, HFpEF, R-Pleural Effusion, s/p COVID-19, Risk for Aspiration. Current Diet Cardiac/Consistent Carbohydrates Diet (since B ). Labs/Tests 09/01: Na 131, Cl 94.3, BUN 42 , Crea 4.7, Ca 8.0. Pertinent Medications 09/01: D10w 1000 ml @ 50 ml/hr , others nutritionally unremarkable. 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 NOTE: Last visit on 08/19/2021 to 08/28/2021, record shows Pt's Ht: 5' 2" and Wt: 74.8 Kg . Weight Status Appropriate Subjective/Other Information RD consult for skin risk, risk of malnutrition, and nutrition education. No reports available on Pt's PO intake of meals at the time . Pt is a high risk for aspiration, according to previous visits records and Progress notes; I recommend INTERNAL SALESPERSON evaluation as soon as possible. Family is reconsidering PEG placement. During last visit family did not approved it. Pt presents decubitus pressure ulcers stage I, according to last visit records, not mentioned in this visit yet. Pt shows no signs of concern for risk of malnutrition at the time, according to Physical Assessment History notes. Pt still on critical conditions and not able to perform ADLs, not a candidate for Nutrition Education. Percent of energy/protein needs met: Prescribed Cardiac/Consistent Carbohydrates Diet provides for energy/protein needs (1, 977 Kcal/86 g) during LOS. Burn Absent Trauma Absent GI Symptoms None Difficulty In Swallowing Food Allergy No Skin Integrity/Comment Pressure Ulcers stage I. Minimum of two criteria No #1 Nutrition Diagnosis Swallowing difficulty Comments: Pt is a high risk for aspiration, according to previous visits records and Progress notes; I recommend INTERNAL SALESPERSON evaluation as soon as possible. Etiology Uncertain As Evidenced by Signs and Symptoms Risk for aspiration. Is patient on ventilator? No Is Patient Ambulatory and/or Out of Bed No REE-([facility]-confined to bed) [phone] Kcal/Kg value to use for calculation 27 Approximate Energy Requirements Using 1202 kcal/Kg Calculation Used for Recommendations Kcal/kg Additional Notes Protein: 1.2-2 g/Kg; 54-90 g/ day. Fluids: 1 ml/Kcal, or as per MD. Nutrition Intervention Change Diet Order: Modify Cardiac/Consistent Carbohydrates -Pureed- Diet; pending for INTERNAL SALESPERSON evaluation. Goal #1 Facilitate PO intake of meals with mechanical modification during LOS. Goal #2 Maintain body weight within +/ -3% of admission body weight during LOS. Follow-Up By: 09/04/21 Additional Comments Continue monitoring food tolerance, %PO intake of meals , and BM.
[2021-09-01 12:01] LABS: Hepatitis B Surface Antigen Non-Reactive (Negative); Hepatitis C Virus Antibody Non-Reactive (NonReactive)
--- NOTE | 2021-09-01 14:21 | Consultation ---
History of Present Illness - Reason for Consult Consult date: 09/01/21 - History of Present Illness 86-year-old female past medical history of stage renal disease, diabetes, hypertension, recent COVID-19 with hospital-acquired pneumonia, presents to the hospital with hypoglycemia. She is found unresponsive in dialysis. At that time she was said to be hypoglycemic and was given oral glucose. She was recently discharged in the hospital 2 days prior, during that time she was seen by our group due to pneumonia. Afebrile since admission with a white count of 9.7. Imaging personally viewed: Chest x-ray: Bibasilar opacification. Review of Systems: Bold if positive, otherwise negative General: fevers, chills, rigors HEENT: visual disturbance, diplopia, eye pain Respiratory: cough, sputum, hemoptysis, shortness of breath Cardiovascular: chest pain, syncope Gastrointestinal: nausea, vomiting, diarrhea, abdominal pain Genitourinary: dysuria, hematuria, flank pain Musculoskeletal: neck pain, back pain, joint pain, edema Neurologic: headaches, seizures Hematologic: easy bruising or bleeding Endocrine: night sweats, acute weight loss Skin: rash, jaundice, redness Psychiatric: suicidal, homicidal ideation Past History Past Medical History: acute OH, arthritis, diabetes, dialysis, DVT, ESRD, heart failure, hypertension, migraines Past Surgical History: Other (Upper extremity fistula, right upper extremity fistula.) Social history: no significant social history Family history: no significant family history Medications and Allergies Allergies Allergy/AdvReac Type Severity Reaction Status Date / Time No Known Allergies Allergy Verified 08/25/21 09:27 Home Medications Medication Instructions Recorded Confirmed Last Taken Type amLODIPine 10 mg PO DAILY #30 tablet 01/31/20 08/25/21 Unknown Rx Diclofenac 1% [Diclofenac 1% 2 - 4 gm TP QID 08/12/21 08/25/21 Unknown History topical gel] Gabapentin 300 mg PO BID 08/12/21 08/25/21 Unknown History Mirtazapine [Remeron 15mg TAB] 15 mg PO QHS 08/12/21 08/25/21 Unknown History cloNIDine [Catapres] 0.1 mg PO BID 08/12/21 08/25/21 Unknown History Famotidine [Pepcid] 20 mg PO QAM #30 tablet 08/17/21 08/25/21 Unknown Rx Zinc Sulfate [Zinc] 220 mg PO BID #30 08/17/21 08/25/21 Unknown Rx Active Meds: Active Medications Acetaminophen (Acetaminophen 325 Mg Tab) 650 mg PO Q4H PRN PRN Reason: Pain MILD(1-3)/Fever >100.5/MEHTA Dextrose (Dextrose 10% *Hypoglycemia) 0 ml IV PRN PRN PRN Reason: Hypoglycemia Heparin Sodium (Porcine) (Heparin 5,000 Unit/1 Ml Vial) 5,000 unit SUB-Q Q8HR ANAHY Last Admin: 09/01/21 05:32 Dose: 5,000 unit Dextrose (D10w) 1,000 mls @ 50 mls/hr IV DIRECT ANAHY Last Infusion: 09/01/21 01:54 Dose: 125 mls/hr Cefepime HCl (Cefepime/Ns 1 Gm/100 Ml) 1 gm in 100 mls @ 200 mls/hr IV Q24H ANAHY; Protocol Sodium Chloride (Nacl 0.9%) 100 mls @ 999 mls/hr IV LEVI PRN PRN Reason: Hypotension Magnesium Hydroxide (Magnesium Hydroxide (Mom) Oral Liqd Udc) 30 ml PO Q4H PRN PRN Reason: Constipation Morphine Sulfate (Morphine 2 Mg/1 Ml Inj) 2 mg IV Q4H PRN PRN Reason: Pain, Moderate (4-6) Morphine Sulfate (Morphine 4 Mg/1 Ml Inj) 4 mg IV Q4H PRN PRN Reason: Pain , Severe (7-10) Last Admin: 08/31/21 23:37 Dose: 4 mg Ondansetron HCl (Ondansetron 4 Mg/2 Ml Inj) 4 mg IV Q8H PRN PRN Reason: Nausea And Vomiting Paricalcitol (Paricalcitol 2 Mcg/1 Ml Inj) 2 mcg IV LEVI PRN PRN Reason: hemodialysis Sodium Chloride (Sodium Chloride 0.9% 10 Ml Flush Syringe) 10 ml IV BID [facility] Last Admin: 08/31/21 22:00 Dose: 10 ml Sodium Chloride (Sodium Chloride 0.9% 10 Ml Flush Syringe) 10 ml IV PRN PRN PRN Reason: LINE FLUSH Physical Examination - Physical Exam Narrative exam: Physical Exam: Constitutional: Alert, cooperative. No acute distress Head, Ears, Nose: Normocephalic, atraumatic. External ears, nose normal Eyes: Conjunctivae/corneas clear. No icterus. No ptosis. Neck: Supple, no meningeal signs Oral: dentition fair, no thrush Cardiovascular: S1, S2 normal. Respiratory: Good air entry, clear to auscultation bilaterally GI: Soft, non-tender; bowel sounds normal. No peritoneal signs. Musculoskeletal: No pedal edema, no cyanosis. Skin: No rash or abscess Hem/Lymphatic: No palpable cervical or supraclavicular nodes. No lymphangitis Psych: Mood ok. Affect normal Neurological: Awake, alert, oriented. No gross abnormality - Constitutional Vitals: Vital Signs Temp Pulse Resp BP Pulse Ox 99.3 F 105 H 17 148/77 100 09/01/21 12:00 09/01/21 11:00 09/01/21 11:00 09/01/21 11:00 09/01/21 11:00 Temperature -Last 24 Hours Temperature 99.3 F Temperature 99.9 F Temperature 98.1 F Temperature 100 F Temperature 98.5 F Temperature 98.7 F Temperature 98.9 F Temperature 98.8 F Results - Labs CBC & Chem 7: 08/31/21 18:26 09/01/21 11:02 Labs: Abnormal lab results 08/31/21 08/31/21 08/31/21 Range/Units 18:08 18:26 18:26 RDW 19.7 H (13.2-15.2) % Plt Count 491 H (140-440) K/mm3 Lymph % (Auto) 11.0 L (13.4-35.0) % Lymph # (Auto) 1.1 L (1.2-5.4) K/mm3 Seg Neutrophils % 80.5 H (40.0-70.0) % Seg Neutrophils # 7.8 H (1.8-7.7) K/mm3 Sodium (137-145) mmol/L Potassium 3.4 L D (3.6-5.0) mmol/L Chloride (98-107) mmol/L BUN 43 H (7-17) mg/dL Creatinine 4.6 H (0.6-1.2) mg/dL POC Glucose 52 L (70-105) mg/dL Calcium 8.3 L (8.4-10.2) mg/dL NT-Pro-B Natriuret Pep (0-900) pg/mL 02/08/31/21 08/31/21 Range/Units 19:21 20:18 21:19 RDW (13.2-15.2) % Plt Count (140-440) K/mm3 Lymph % (Auto) (13.4-35.0) % Lymph # (Auto) (1.2-5.4) K/mm3 Seg Neutrophils % (40.0-70.0) % Seg Neutrophils # (1.8-7.7) K/mm3 Sodium (137-145) mmol/L Potassium (3.6-5.0) mmol/L Chloride (98-107) mmol/L BUN (7-17) mg/dL Creatinine (0.6-1.2) mg/dL POC Glucose 57 L 44 L (70-105) mg/dL Calcium (8.4-10.2) mg/dL NT-Pro-B Natriuret Pep 41491 H (0-900) pg/mL 08/31/21 08/31/21 09/01/21 Range/Units 22:14 23:39 00:35 RDW (13.2-15.2) % Plt Count (140-440) K/mm3 Lymph % (Auto) (13.4-35.0) % Lymph # (Auto) (1.2-5.4) K/mm3 Seg Neutrophils % (40.0-70.0) % Seg Neutrophils # (1.8-7.7) K/mm3 Sodium (137-145) mmol/L Potassium (3.6-5.0) mmol/L Chloride (98-107) mmol/L BUN (7-17) mg/dL Creatinine (0.6-1.2) mg/dL POC Glucose 165 H 53 L 135 H (70-105) mg/dL Calcium (8.4-10.2) mg/dL NT-Pro-B Natriuret Pep (0-900) pg/mL 09/01/21 09/01/21 09/01/21 Range/Units 05:18 06:28 07:53 RDW (13.2-15.2) % Plt Count (140-440) K/mm3 Lymph % (Auto) (13.4-35.0) % Lymph # (Auto) (1.2-5.4) K/mm3 Seg Neutrophils % (40.0-70.0) % Seg Neutrophils # (1.8-7.7) K/mm3 Sodium (137-145) mmol/L Potassium (3.6-5.0) mmol/L Chloride (98-107) mmol/L BUN (7-17) mg/dL Creatinine (0.6-1.2) mg/dL POC Glucose 111 H 125 H 126 H (70-105) mg/dL Calcium (8.4-10.2) mg/dL NT-Pro-B Natriuret Pep (0-900) pg/mL 09/01/21 Range/Units 11:02 RDW (13.2-15.2) % Plt Count (140-440) K/mm3 Lymph % (Auto) (13.4-35.0) % Lymph # (Auto) (1.2-5.4) K/mm3 Seg Neutrophils % (40.0-70.0) % Seg Neutrophils # (1.8-7.7) K/mm3 Sodium 131 L D (137-145) mmol/L Potassium (3.6-5.0) mmol/L Chloride 94.3 L (98-107) mmol/L BUN 42 H (7-17) mg/dL Creatinine 4.7 H (0.6-1.2) mg/dL POC Glucose (70-105) mg/dL Calcium 8.0 L (8.4-10.2) mg/dL NT-Pro-B Natriuret Pep (0-900) pg/mL Assessment and Plan Cultures: Blood culture 08/31/2021 no growth so far A/P: 86-year-old female past medical history of stage renal disease, diabetes, hypertension #DKA: management per ICU team/primary #Recent COVID with HAP: completed antibiotics. Remains afebreile with a normal white count. Opacity on CXR can linger behind patient improvement. SHe is on room air #ESRD on HD: renally dose medications Recs: -Stopped antibiotics -If she develops worsening fevers ok to give renally dosed cefepime Thank you for the consult, we will continue to follow. MD Nadege [facility] ([facility] O: [phone] F: [phone]
[2021-09-01] MEDS: DEXTROSE 10% IN WATER 1,000 ML IV SCH (18:14)
[2021-09-01] MEDS: CEFEPIME/NS 1 GM/100 ML 1 GM/100 ML BAG IV SCH ×2 (22:16→22:19)
[2021-09-02 04:51] LABS: Hematocrit 28.6 % (30.3-42.9); Hemoglobin 9.8 gm/dl (10.1-14.3); Mean Corpuscular HGB Conc 34 % (30-34); Mean Corpuscular Volume 89 fl (79-97); Platelet Count 445 K/mm3 (140-440); Red Cell Distribution Width 19.8 % (13.2-15.2)
[2021-09-02 05:12] LABS: Calcium 7.8 mg/dL (8.4-10.2)
[2021-09-02] MEDS: HEPARIN 5,000 UNIT/1 ML VIAL SUB-Q SCH ×3 (05:12→21:29)
--- NOTE | 2021-09-02 09:46 | Progress Note ---
Subjective Date of service: 09/02/21 Principal diagnosis: esrd Interval history: Impression * End-stage renal disease on maintenance hemodialysis * Acute hypoxic respiratory failure * COVID-19 pneumonia * Hypokalemia * hypoglycemia * Hyponatremia * Anemia secondary to ESRD * Diabetes * Hypertension * Hypocalcemia Recommendations * Continue hemodialysis MWF or prn * UF as tolerated * Maintain MAP>65 - pressors prn * Antibiotic therapy as per primary team and infectious diseases * Adjust diet and meds for ESRD state * Epogen with dialysis * No IV, BP or venipuncture in her access arm * Avoid nephrotoxins * Monitor fluid status and electrolytes closely * [facility] outpatient * needs Hospice/palliative care discussion, 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 Subjective Principal diagnosis: AHRF; Sepsis; Possible Aspiration; AMS; ESRD; HFpEF; Leukoc ytosis Interval history: Resting in bed, no acute issues issues noted Objective - Exam Narrative Exam: Patient not directly examined today due to COVID-19 pandemic, need to limit PPE overuse Objective - Vital Signs Vital signs: Vital Signs - 12hr 09/01/21 09/01/21 09/01/21 21:50 22:00 22:10 Temperature Pulse Rate 101 H 102 H 102 H Pulse Rate [ From Monitor] Respiratory 19 18 20 Rate Blood Pressure 122/70 114/74 114/74 O2 Sat by Pulse 99 99 99 Oximetry 09/01/21 09/01/21 09/01/21 22:20 22:30 22:40 Temperature Pulse Rate 104 H 100 H 105 H Pulse Rate [ From Monitor] Respiratory 18 20 18 Rate Blood Pressure 114/74 114/74 114/74 O2 Sat by Pulse 99 99 99 Oximetry 09/01/21 09/01/21 09/01/21 22:50 23:00 23:08 Temperature Pulse Rate 100 H 100 H 96 H Pulse Rate [ 99 H From Monitor] Respiratory 19 20 17 Rate Blood Pressure 114/74 136/87 136/87 O2 Sat by Pulse 99 99 100 Oximetry 09/01/21 09/01/21 09/01/21 23:10 23:20 23:30 Temperature Pulse Rate 101 H 95 H 104 H Pulse Rate [ From Monitor] Respiratory 18 20 18 Rate Blood Pressure 136/87 136/87 136/87 O2 Sat by Pulse 100 100 99 Oximetry 09/01/21 09/01/21 09/02/21 23:40 23:50 00:00 Temperature 99.3 F Pulse Rate 100 H 104 H 103 H Pulse Rate [ From Monitor] Respiratory 16 19 19 Rate Blood Pressure 136/87 136/87 127/82 O2 Sat by Pulse 100 99 99 Oximetry 09/02/21 09/02/21 09/02/21 00:10 00:20 00:30 Temperature Pulse Rate 102 H 106 H 100 H Pulse Rate [ From Monitor] Respiratory 20 20 18 Rate Blood Pressure 127/82 127/82 127/82 O2 Sat by Pulse 99 99 100 Oximetry 09/02/21 09/02/21 09/02/21 00:40 00:50 01:00 Temperature Pulse Rate 99 H 105 H 105 H Pulse Rate [ From Monitor] Respiratory 20 22 19 Rate Blood Pressure 127/82 127/82 137/77 O2 Sat by Pulse 99 99 99 Oximetry 09/02/21 09/02/21 09/02/21 01:10 01:20 01:30 Temperature Pulse Rate 101 H 95 H 102 H Pulse Rate [ From Monitor] Respiratory 19 19 16 Rate Blood Pressure 137/77 137/77 137/77 O2 Sat by Pulse 99 99 99 Oximetry 09/02/21 09/02/21 09/02/21 01:40 01:50 02:00 Temperature Pulse Rate 105 H 106 H 103 H Pulse Rate [ From Monitor] Respiratory 17 20 16 Rate Blood Pressure 137/77 137/77 133/80 O2 Sat by Pulse 99 99 99 Oximetry 09/02/21 09/02/21 09/02/21 02:10 02:20 02:30 Temperature Pulse Rate 105 H 106 H Pulse Rate [ From Monitor] Respiratory 20 15 Rate Blood Pressure 133/80 133/80 133/80 O2 Sat by Pulse 98 100 99 Oximetry 09/02/21 09/02/21 09/02/21 02:40 02:50 03:00 Temperature Pulse Rate 104 H 98 H 98 H Pulse Rate [ 90 From Monitor] Respiratory 19 18 19 Rate Blood Pressure 133/80 133/80 133/80 O2 Sat by Pulse 100 100 100 Oximetry 09/02/21 09/02/21 09/02/21 03:10 03:20 03:30 Temperature Pulse Rate 97 H 93 H 100 H Pulse Rate [ From Monitor] Respiratory 20 18 18 Rate Blood Pressure 140/78 140/78 140/78 O2 Sat by Pulse 100 100 100 Oximetry 09/02/21 09/02/21 09/02/21 03:40 03:50 04:00 Temperature 99.2 F Pulse Rate 98 H 96 H 105 H Pulse Rate [ From Monitor] Respiratory 19 19 16 Rate Blood Pressure 140/78 140/78 118/73 O2 Sat by Pulse 99 100 99 Oximetry 09/02/21 09/02/21 09/02/21 04:10 04:20 04:30 Temperature Pulse Rate 105 H 104 H 109 H Pulse Rate [ From Monitor] Respiratory 19 19 19 Rate Blood Pressure 118/73 118/73 118/73 O2 Sat by Pulse 99 99 98 Oximetry 09/02/21 09/02/21 09/02/21 04:40 04:50 05:00 Temperature Pulse Rate 106 H 100 H 98 H Pulse Rate [ From Monitor] Respiratory 19 19 19 Rate Blood Pressure 118/73 118/73 138/59 O2 Sat by Pulse 99 99 98 Oximetry 09/02/21 09/02/21 09/02/21 05:10 05:20 05:30 Temperature Pulse Rate 101 H 105 H 103 H Pulse Rate [ From Monitor] Respiratory 19 20 21 Rate Blood Pressure 138/59 138/59 138/59 O2 Sat by Pulse 98 98 99 Oximetry 09/02/21 09/02/21 09/02/21 05:40 05:50 06:00 Temperature Pulse Rate 103 H 106 H 96 H Pulse Rate [ From Monitor] Respiratory 18 23 21 Rate Blood Pressure 138/59 138/59 114/75 O2 Sat by Pulse 99 99 99 Oximetry 09/02/21 09/02/21 09/02/21 06:10 06:20 06:30 Temperature Pulse Rate 104 H 100 H 105 H Pulse Rate [ From Monitor] Respiratory 17 22 19 Rate Blood Pressure 114/75 114/75 114/75 O2 Sat by Pulse 100 99 99 Oximetry 09/02/21 09/02/21 09/02/21 06:40 06:50 07:00 Temperature Pulse Rate 102 H 104 H 104 H Pulse Rate [ From Monitor] Respiratory 21 20 20 Rate Blood Pressure 114/75 114/75 120/66 O2 Sat by Pulse 99 99 99 Oximetry 09/02/21 09/02/21 09/02/21 07:10 07:20 07:30 Temperature Pulse Rate 100 H 95 H 98 H Pulse Rate [ From Monitor] Respiratory 19 20 20 Rate Blood Pressure 120/66 120/66 120/66 O2 Sat by Pulse 100 99 99 Oximetry 09/02/21 09/02/21 07:40 07:50 Temperature Pulse Rate 97 H 99 H Pulse Rate [ From Monitor] Respiratory 19 18 Rate Blood Pressure 120/66 120/66 O2 Sat by Pulse 100 100 Oximetry - Lab 09/02/21 04:17 09/02/21 04:17 Most recent lab results Calcium 7.8 mg/dL (8.4-10.2) L 09/02/21 04:17 Phosphorus 3.00 mg/dL (2.5-4.5) 09/02/21 04:17 Magnesium 1.90 mg/dL (1.7-2.3) 09/02/21 04:17 Medications & Allergies - Medications Allergies/Adverse Reactions: Allergies No Known Allergies Allergy (Verified 08/25/21 09:27) Home Medications: Home Medications Medication Instructions Recorded Confirmed Last Taken Type amLODIPine 10 mg PO DAILY #30 tablet 01/31/20 08/25/21 Unknown Rx Diclofenac 1% [Diclofenac 1% 2 - 4 gm TP QID 08/12/21 08/25/21 Unknown History topical gel] Gabapentin 300 mg PO BID 08/12/21 08/25/21 Unknown History Mirtazapine [Remeron 15mg TAB] 15 mg PO QHS 08/12/21 08/25/21 Unknown History cloNIDine [Catapres] 0.1 mg PO BID 08/12/21 08/25/21 Unknown History Famotidine [Pepcid] 20 mg PO QAM #30 tablet 08/17/21 08/25/21 Unknown Rx Zinc Sulfate [Zinc] 220 mg PO BID #30 08/17/21 08/25/21 Unknown Rx Active Medications: Generic Name Dose Route Start Last Admin Trade Name Freq PRN Reason Stop Dose Admin Acetaminophen 650 mg 08/31/21 22:00 Acetaminophen 325 Mg Tab PO Q4H PRN Pain MILD(1-3)/Fever >100.5/MEHTA Amlodipine Besylate 5 mg 09/02/21 10:00 Amlodipine 5 Mg Tab PO QDAY [facility] Dextrose 0 ml 08/31/21 22:34 Dextrose 10% *Hypoglycemia IV PRN PRN Hypoglycemia Famotidine 20 mg 09/02/21 10:00 Famotidine 20 Mg/2 Ml Inj IV QDAY [facility] Heparin Sodium (Porcine) 5,000 unit 09/01/21 06:00 09/02/21 05:12 Heparin 5,000 Unit/1 Ml Vial SUB-Q 5,000 unit Q8HR ANAHY Administration Dextrose 1,000 mls @ 50 mls/hr 08/31/21 22:00 09/01/21 18:14 D10w IV 50 mls/hr DIRECT ANAHY Administration Sodium Chloride 100 mls @ 999 mls/hr 09/01/21 09:37 Nacl 0.9% IV LEVI PRN Hypotension Magnesium Hydroxide 30 ml 08/31/21 22:00 Magnesium Hydroxide (Mom) Oral Liqd Udc PO Q4H PRN Constipation Morphine Sulfate 2 mg 08/31/21 22:00 Morphine 2 Mg/1 Ml Inj IV Q4H PRN Pain, Moderate (4-6) Morphine Sulfate 4 mg 08/31/21 22:00 08/31/21 23:37 Morphine 4 Mg/1 Ml Inj IV 4 mg Q4H PRN Administration Pain , Severe (7-10) Ondansetron HCl 4 mg 08/31/21 22:00 Ondansetron 4 Mg/2 Ml Inj IV Q8H PRN Nausea And Vomiting Paricalcitol 2 mcg 09/01/21 09:37 Paricalcitol 2 Mcg/1 Ml Inj IV LEVI PRN hemodialysis Senna 17.2 mg 09/02/21 22:00 Sennosides 8.6 Mg Tab PO QHS ANAHY Sodium Chloride 10 ml 08/31/21 22:00 09/01/21 21:16 Sodium Chloride 0.9% 10 Ml Flush Syringe IV 10 ml BID ANAHY Administration Sodium Chloride 10 ml 08/31/21 22:00 Sodium Chloride 0.9% 10 Ml Flush Syringe IV PRN PRN LINE FLUSH
[2021-09-02] MEDS: amLODIPine 5 MG TAB PO SCH ×2 (10:38→15:48)
[2021-09-02] MEDS: FAMOTIDINE 20 MG/2 ML INJ IV SCH (10:48)
--- NOTE | 2021-09-02 11:14 | Progress Note ---
<JUAN JOSÉ MCLAUGHLIN - Last Filed: 09/02/21 14:45> Assessment and Plan Assessment and plan: This is a 86-year-old [place] female with known history of end-stage renal disease on dialysis, diabetes mellitus, hypertension, with recent hospitalizations for hypoglycemia and acute respiratory failure 2/2 COVID pneumonia requiring ventilatory support. Admitted this time again for hypoglycemia while in HD. Hospital Course to Date: 09/01: Patient is now awake and alert, stable on RA. Remains on D10w gtt, BG improved. Report that patient is coughing after PO intake, will keep patient NPO for now. D10w reduced to 50, speech eval ordered. Thorough discussion with patient's family by the attending today. Patient is to remains a full code, family opted for PEG tube insertion, GI consulted. Patient CXR noted probably secondary to possible aspiration versus previous COVID pneumonia, patient is stable on RA, with normal WBcs, and afebrile. Will defer IV Abx management to ID. 09/02: Remains on D10W due to NPO status, speech eval pending. Plan for HD today. Plan for possible PEG Tube placement, GI consulted. Patient is stable for transfer to the floor. Assessment and Plan #Hypoglycemia #H/o Diabetes - most likely due to low PO intake and patient was still received PO glycemic regimen at home - BG improved on D10w - Continue D10 gtt for now since patient is NPO - Continue SSI Q6hrs - Avoid Hypoglycemia - Continue Hypoglycemic protocol #Right Basilar Pneumonia #Possible Aspiration #Recently treated for COVID Pneumonia - Chest x-ray shows a right basilar opacification which could represent pneumonia which appears worse than prior. Small right pleural effusion. - Patient remains stable on RA, SPO2 above 95% - Patient remains afebrile, WBCs normal - Blood culture with NGTD - IV Abx held per ID - O2 supplemetation as needed - Continue SPO2 monitoring for SPO2 goal above 92% - Continue to F/U on culture data #Poor Oral Intake #Dysphagia - family reported poor oral intake at home - Per nursing staffs patient is coughing with PO intake - Will keep patient NPO for now - D10w decreased, continue for now - Speech eval and treat ordered - Nutrition consulted - Thorough discussion with patient's family, opted for PEG tube insertion - GI consulted for PEG Tube placement #ESRD (End stage Renal Disease) on Dialysis #Hypokalemia #Hyponatremia - Nephrology on consult, appreciated recommendation - Continue HD per Nephro - Strict intake and output - Avoid nephrotoxic medications; Renally dose medications - Monitor and replace electrolytes as needed - Trend BMP #HTN (Hypertension), benign - Home antihypertensive regimen resumed - Continue blood pressure monitor per protocol - Maintain SBP less than 160 #Anemia secondary to ESRD - H&H is stable - Continue to trend CBC - Epogen with HD per Nephro #GI/DVT Prophylaxis - PPI- Pepcid - Continue AC- Heparin SubQ - SCDs to bilateral lower extremities while in bed The high probability of a clinically significant, sudden or life threatening deterioration of the [multiple] system(s) required my full and direct attention, intervention and personal management. The aggregate critical care time was [60] minutes. This time is in addition to time spent performing reported procedures but includes the following: [x] Data Review and interpretation [x] Patient assessment and monitoring of vital signs [x] Documentation [x] Medication orders and management Disposition Plan: IMCU Total Time Spent with Patient (Minutes): 60 History Interval history: Patient seen and examined at the bedside. Remains stable on RA, in NAD. Remains on D10w due to NPO status, pending speech eval. SIVAKUMAR overnight Hospitalist Physical - Constitutional Vitals: Temp Pulse Resp BP Pulse Ox 99.0 F 108 H 20 140/71 100 09/02/21 08:00 09/02/21 10:00 09/02/21 10:00 09/02/21 10:00 09/02/21 10:00 General appearance: Present: no acute distress, well-nourished - EENT Eyes: Present: PERRL ENT: hearing intact - Neck Neck: Present: normal ROM - Respiratory Respiratory effort: normal Respiratory: bilateral: diminished - Cardiovascular Rhythm: regular Heart Sounds: Present: S1 & S2 - Extremities Extremities: no ischemia, pulses intact, pulses symmetrical Extremity abnormal: edema - Peripheral Assessment Generalized Edema Type: Non-pitting Edema Degree: 1+ Capillary Refill: < 3 seconds Skin Temperature: Warm Peripheral Pulses: within normal limits - Abdominal General gastrointestinal: soft, non-distended, normal bowel sounds - Integumentary Integumentary: Present: warm, dry - Psychiatric Psychiatric: cooperative - Neurologic Neurologic: moves all extremities - Allied Health Allied health notes reviewed: nursing, case management Results - Labs CBC & Chem 7: 09/02/21 04:17 09/02/21 04:17 Labs: Laboratory Last Values WBC 9.7 K/mm3 (4.5-11.0) 09/02/21 04:17 RBC 3.20 M/mm3 (3.65-5.03) L 09/02/21 04:17 Hgb 9.8 gm/dl (10.1-14.3) L 09/02/21 04:17 Hct 28.6 % (30.3-42.9) L 09/02/21 04:17 MCV 89 fl (79-97) 09/02/21 04:17 MCH 31 pg (28-32) 09/02/21 04:17 MCHC 34 % (30-34) 09/02/21 04:17 RDW 19.8 % (13.2-15.2) H 09/02/21 04:17 Plt Count 445 K/mm3 (140-440) H 09/02/21 04:17 Lymph % (Auto) 11.0 % (13.4-35.0) L 08/31/21 18:26 [place] % (Auto) 5.1 % (0.0-7.3) 08/31/21 18: Eos % (Auto) 2.8 % (0.0-4.3) 08/31/21 18:26 Baso % (Auto) 0.6 % (0.0-1.8) 08/31/21 18:26 Lymph # (Auto) 1.1 K/mm3 (1.2-5.4) L 08/31/21 18:26 [place] # (Auto) 0.5 K/mm3 (0.0-0.8) 08/31/21 18:26 Eos # (Auto) 0.3 K/mm3 (0.0-0.4) 08/31/21 18:26 Baso # (Auto) 0.1 K/mm3 (0.0-0.1) 08/31/21 18:26 Seg Neutrophils % 80.5 % (40.0-70.0) H 08/31/21 18:26 Seg Neutrophils # 7.8 K/mm3 (1.8-7.7) H 08/31/21 18:26 Sodium 130 mmol/L (137-145) L 09/02/21 04:17 Potassium 3.5 mmol/L (3.6-5.0) L 09/02/21 04:17 Chloride 95.0 mmol/L (98-107) L 09/02/21 04:17 Carbon Dioxide 21 mmol/L (22-30) L 09/02/21 04:17 Anion Gap 18 mmol/L 09/02/21 04:17 BUN 41 mg/dL (7-17) H 09/02/21 04:17 Creatinine 4.5 mg/dL (0.6-1.2) H 09/02/21 04:17 Estimated GFR 9 ml/min 09/02/21 04:17 BUN/Creatinine Ratio 9 % 09/02/21 04:17 Glucose 112 mg/dL (65-100) H 09/02/21 04:17 POC Glucose 101 mg/dL (70-105) 09/02/21 08:30 Calcium 7.8 mg/dL (8.4-10.2) L 09/02/21 04:17 Phosphorus 3.00 mg/dL (2.5-4.5) 09/02/21 04:17 Magnesium 1.90 mg/dL (1.7-2.3) 09/02/21 04:17 NT-Pro-B Natriuret Pep 24650 pg/mL (0-900) H 08/31/21 20:18 Hepatitis A IgM Ab Non-reactive (NonReactive) 09/01/21 11:02 Hep Bs Antigen Non-reactive (Negative) 09/01/21 11:02 Hep B Core IgM Ab Non-reactive (NonReactive) 09/01/21 11:02 Hepatitis C Antibody Non-reactive (NonReactive) 09/01/21 11:02 Microbiology: Microbiology 08/31/21 20:18 Peripheral/Venous Blood Culture - Preliminary NO GROWTH AFTER 24 HOURS 08/31/21 20:25 Peripheral/Venous Blood Culture - Preliminary NO GROWTH AFTER 24 HOURS [place]/IV: Voiding Method Incontinent Active Medications - Current Medications Current Medications: Generic Name Dose Route Start Last Admin Trade Name Freq PRN Reason Stop Dose Admin Acetaminophen 650 mg 08/31/21 22:00 Acetaminophen 325 Mg Tab PO Q4H PRN Pain MILD(1-3)/Fever >100.5/MEHTA Amlodipine Besylate 5 mg 09/02/21 10:00 09/02/21 10:38 Amlodipine 5 Mg Tab PO Not Given QDAY ANAHY Dextrose 0 ml 08/31/21 22:34 Dextrose 10% *Hypoglycemia IV PRN PRN Hypoglycemia Famotidine 20 mg 09/02/21 10:00 Famotidine 20 Mg/2 Ml Inj IV QDAY ANAHY Heparin Sodium (Porcine) 5,000 unit 09/01/21 06:00 09/02/21 05:12 Heparin 5,000 Unit/1 Ml Vial SUB-Q 5,000 unit Q8HR ANAHY Administration Dextrose 1,000 mls @ 50 mls/hr 08/31/21 22:00 09/01/21 18:14 D10w IV 50 mls/hr DIRECT ANAHY Administration Sodium Chloride 100 mls @ 999 mls/hr 09/01/21 09:37 Nacl 0.9% IV LEVI PRN Hypotension Magnesium Hydroxide 30 ml 08/31/21 22:00 Magnesium Hydroxide (Mom) Oral Liqd Udc PO Q4H PRN Constipation Morphine Sulfate 2 mg 08/31/21 22:00 Morphine 2 Mg/1 Ml Inj IV Q4H PRN Pain, Moderate (4-6) Morphine Sulfate 4 mg 08/31/21 22:00 08/31/21 23:37 Morphine 4 Mg/1 Ml Inj IV 4 mg Q4H PRN Administration Pain , Severe (7-10) Ondansetron HCl 4 mg 08/31/21 22:00 Ondansetron 4 Mg/2 Ml Inj IV Q8H PRN Nausea And Vomiting Paricalcitol 2 mcg 09/01/21 09:37 Paricalcitol 2 Mcg/1 Ml Inj IV LEVI PRN hemodialysis Senna 17.2 mg 09/02/21 22:00 Sennosides 8.6 Mg Tab PO QHS ANAHY Sodium Chloride 10 ml 08/31/21 22:00 09/01/21 21:16 Sodium Chloride 0.9% 10 Ml Flush Syringe IV 10 ml BID ANAHY Administration Sodium Chloride 10 ml 08/31/21 22:00 Sodium Chloride 0.9% 10 Ml Flush Syringe IV PRN PRN LINE FLUSH Nutrition/Malnutrition Assess - Dietary Evaluation Nutrition/Malnutrition Findings: Nutrition Notes Start: 09/01/21 14:11 Freq: Status: Active Protocol: Document 09/01/21 14:11 MIGUEL ANGEL (Rec: 09/01/21 15:04 MIGUEL ANGEL [id number]) Nutrition Notes Need for Assessment generated from: MD Order,lehr stripper,MST, Education Initial or Follow up Assessment Current Diagnosis CKD (stage V CKD),Diabetes, Hypertension,Heart Failure Other Pertinent Diagnosis Hypoglycemia, HFpEF, R-Pleural Effusion, s/p COVID-19, Risk for Aspiration. Current Diet Cardiac/Consistent Carbohydrates Diet (since B ). Labs/Tests 09/01: Na 131, Cl 94.3, BUN 42 , Crea 4.7, Ca 8.0. Pertinent Medications 09/01: D10w 1000 ml @ 50 ml/hr , others nutritionally unremarkable. Height 5 ft Weight 44.5 kg [place] Body Weight (kg) 45.45 BMI 19.1 Intake Prior to Admission Good Weight change and time frame Pt states not having loss body weight SIDE GLUER. NOTE: Last visit on 08/19/2021 to 08/28/2021, record shows Pt's Ht: 5' 2" and Wt: 74.8 Kg . Weight Status Appropriate Subjective/Other Information RD consult for skin risk, risk of malnutrition, and nutrition education. No reports available on Pt's PO intake of meals at the time . Pt is a high risk for aspiration, according to previous visits records and Progress notes; I recommend SALES [employer]LOOR TEAM MEMBER evaluation as soon as possible. Family is reconsidering PEG placement. During last visit family did not approved it. Pt presents decubitus pressure ulcers stage I, according to last visit records, not mentioned in this visit yet. Pt shows no signs of concern for risk of malnutrition at the time, according to Physical Assessment History notes. Pt still on critical conditions and not able to perform ADLs, not a candidate for Nutrition Education. Percent of energy/protein needs met: Prescribed Cardiac/Consistent Carbohydrates Diet provides for energy/protein needs (1, 977 Kcal/86 g) during LOS. Burn Absent Trauma Absent GI Symptoms None Difficulty In Swallowing Food Allergy No Skin Integrity/Comment Pressure Ulcers stage I. Minimum of two criteria No #1 Nutrition Diagnosis Swallowing difficulty Comments: Pt is a high risk for aspiration, according to previous visits records and Progress notes; I recommend SALES FLOOR TEAM MEMBER evaluation as soon as possible. Etiology Uncertain As Evidenced by Signs and Symptoms Risk for aspiration. Is patient on ventilator? No Is Patient Ambulatory and/or Out of Bed No REE-(Sanders-St. Jeor-confined to bed) 987.336 Kcal/Kg value to use for calculation 27 Approximate Energy Requirements Using 1202 kcal/Kg Calculation Used for Recommendations Kcal/kg Additional Notes Protein: 1.2-2 g/Kg; 54-90 g/ day. Fluids: 1 ml/Kcal, or as per MD. Nutrition Intervention Change Diet Order: Modify Cardiac/Consistent Carbohydrates -Pureed- Diet; pending for SALES FLOOR TE[employer] MEMBER evaluation. Goal #1 Facilitate PO intake of meals with mechanical modification during LOS. Goal #2 Maintain body weight within +/ -3% of admission body weight during LOS. Follow-Up By: 09/04/21 Additional Comments Continue monitoring food tolerance, %PO intake of meals , and BM. <JENNIFER CARRILLO - Last Filed: 09/03/21 07:04> Assessment and Plan Assessment and plan: I saw and evaluated the patient. I agree with the findings and the plan of care as documented in the Nurse Practitioner's~note, with the following corrections and additions. Hospitalist Physical - Constitutional Vitals: Temp Pulse Resp BP Pulse Ox 98.2 F 92 H 16 140/72 100 09/03/21 04:50 09/03/21 06:00 09/03/21 06:00 09/03/21 04:50 09/03/21 06:00 Results - Labs CBC & Chem 7: 09/02/21 04:17 09/03/21 05:51 Labs: Laboratory Last Values WBC 9.7 K/mm3 (4.5-11.0) 09/02/21 04:17 RBC 3.20 M/mm3 (3.65-5.03) L 09/02/21 04:17 Hgb 9.8 gm/dl (10.1-14.3) L 09/02/21 04:17 Hct 28.6 % (30.3-42.9) L 09/02/21 04:17 MCV 89 fl (79-97) 09/02/21 04:17 MCH 31 pg (28-32) 09/02/21 04:17 MCHC 34 % (30-34) 09/02/21 04:17 RDW 19.8 % (13.2-15.2) H 09/02/21 04:17 Plt Count 445 K/mm3 (140-440) H 09/02/21 04:17 Lymph % (Auto) 11.0 % (13.4-35.0) L 08/31/21 18:26 [place] % (Auto) 5.1 % (0.0-7.3) 08/31/21 18:26 Eos % (Auto) 2.8 % (0.0-4.3) 08/31/21 18:26 Baso % (Auto) 0.6 % (0.0-1.8) 08/31/21 18:26 Lymph # (Auto) 1.1 K/mm3 (1.2-5.4) L 08/31/21 18:26 [place] # (Auto) 0.5 K/mm3 (0.0-0.8) 08/31/21 18: Eos # (Auto) 0.3 K/mm3 (0.0-0.4) 08/31/21 18: Baso # (Auto) 0.1 K/mm3 (0.0-0.1) 08/31/21 18:26 Seg Neutrophils % 80.5 % (40.0-70.0) H 08/31/21 18:26 Seg Neutrophils # 7.8 K/mm3 (1.8-7.7) H 08/31/21 18:26 Sodium 138 mmol/L (137-145) D 09/03/21 05:51 Potassium 3.3 mmol/L (3.6-5.0) L 09/03/21 05:51 Chloride 97.4 mmol/L (98-107) L 09/03/21 05:51 Carbon Dioxide 29 mmol/L (22-30) D 09/03/21 05:51 Anion Gap 15 mmol/L 09/03/21 05:51 BUN 11 mg/dL (7-17) 09/03/21 05:51 Creatinine 2.0 mg/dL (0.6-1.2) H D 09/03/21 05:51 Estimated GFR 24 ml/min 09/03/21 05:51 BUN/Creatinine Ratio 6 % 09/03/21 05:51 Glucose 120 mg/dL (65-100) H 09/03/21 05:51 POC Glucose 115 mg/dL (70-105) H 09/03/21 05:02 Calcium 7.6 mg/dL (8.4-10.2) L 09/03/21 05:51 Phosphorus 3.00 mg/dL (2.5-4.5) 09/02/21 04:17 Magnesium 1.90 mg/dL (1.7-2.3) 09/02/21 04:17 NT-Pro-B Natriuret Pep 79359 pg/mL (0-900) H 08/31/21 20:18 Nasal Screen MRSA (PCR) Negative (Negative) 09/02/21 12:45 Hepatitis A IgM Ab Non-reactive (NonReactive) 09/01/21 11:02 Hep Bs Antigen Non-reactive (Negative) 09/01/21 11:02 Hep B Core IgM Ab Non-reactive (NonReactive) 09/01/21 11:02 Hepatitis C Antibody Non-reactive (NonReactive) 09/01/21 11:02 Microbiology: Microbiology 08/31/21 20:25 Peripheral/Venous Blood Culture - Preliminary NO GROWTH AFTER 48 HOURS 08/31/21 20:18 Peripheral/Venous Blood Culture - Preliminary NO GROWTH AFTER 48 HOURS [place]/IV: Voiding Method Incontinent Active Medications - Current Medications Current Medications: Generic Name Dose Route Start Last Admin Trade Name Freq PRN Reason Stop Dose Admin Acetaminophen 650 mg 08/31/21 22:00 Acetaminophen 325 Mg Tab PO Q4H PRN Pain MILD(1-3)/Fever >100.5/MEHTA Amlodipine Besylate 5 mg 09/02/21 10:00 09/02/21 15:48 Amlodipine 5 Mg Tab PO 5 mg QDAY ANAHY Administration Dextrose 0 ml 08/31/21 22:34 Dextrose 10% *Hypoglycemia IV PRN PRN Hypoglycemia Famotidine 20 mg 09/02/21 10:00 09/02/21 10:48 Famotidine 20 Mg/2 Ml Inj IV 20 mg QDAY ANAHY Administration Heparin Sodium (Porcine) 5,000 unit 09/01/21 06:00 09/03/21 05:32 Heparin 5,000 Unit/1 Ml Vial SUB-Q 5,000 unit Q8HR ANAHY Administration Dextrose 1,000 mls @ 30 mls/hr 08/31/21 22:00 09/02/21 15:47 D10w IV Infused DIRECT ANAHY Infusion Sodium Chloride 100 mls @ 999 mls/hr 09/01/21 09:37 Nacl 0.9% IV LEVI PRN Hypotension Magnesium Hydroxide 30 ml 08/31/21 22:00 Magnesium Hydroxide (Mom) Oral Liqd Udc PO Q4H PRN Constipation Melatonin 5 mg 09/02/21 22:00 09/02/21 21:29 Melatonin 5 Mg Tab PO 5 mg QHS ANAHY Administration Ondansetron HCl 4 mg 08/31/21 22:00 Ondansetron 4 Mg/2 Ml Inj IV Q8H PRN Nausea And Vomiting Paricalcitol 2 mcg 09/01/21 09:37 09/03/21 01:00 Paricalcitol 2 Mcg/1 Ml Inj IV 2 mcg LEVI PRN Administration hemodialysis Senna 17.2 mg 09/02/21 22:00 09/02/21 21:29 Sennosides 8.6 Mg Tab PO 17.2 mg QHS ANAHY Administration Sodium Chloride 10 ml 08/31/21 22:00 09/02/21 21:36 Sodium Chloride 0.9% 10 Ml Flush Syringe IV 10 ml BID ANAHY Administration Sodium Chloride 10 ml 08/31/21 22:00 Sodium Chloride 0.9% 10 Ml Flush Syringe IV PRN PRN LINE FLUSH Nutrition/Malnutrition Assess - Dietary Evaluation Nutrition/Malnutrition Findings: Nutrition Notes Start: 09/01/21 14:11 Freq: Status: Active Protocol: Document 09/01/21 14:11 MIGUEL ANGEL (Rec: 09/01/21 15:04 MIGUEL ANGEL [id number]) Nutrition Notes Need for Assessment generated from: MD Order,lehr stripper,MST, Education Initial or Follow up Assessment Current Diagnosis CKD (stage V CKD),Diabetes, Hypertension,Heart Failure Other Pertinent Diagnosis Hypoglycemia, HFpEF, R-Pleural Effusion, s/p COVID-19, Risk for Aspiration. Current Diet Cardiac/Consistent Carbohydrates Diet (since B ). Labs/Tests 09/01: Na 131, Cl 94.3, BUN 42 , Crea 4.7, Ca 8.0. Pertinent Medications 09/01: D10w 1000 ml @ 50 ml/hr , others nutritionally unremarkable. Height 5 ft Weight 44.5 kg [place] Body Weight (kg) 45.45 BMI 19.1 Intake Prior to Admission Good Weight change and time frame Pt states not having loss body weight SIDE GLUER. NOTE: Last visit on 08/19/2021 to 08/28/2021, record shows Pt's Ht: 5' 2" and Wt: 74.8 Kg . Weight Status Appropriate Subjective/Other Information RD consult for skin risk, risk of malnutrition, and nutrition education. No reports available on Pt's PO intake of meals at the time . Pt is a high risk for aspiration, according to previous visits records and Progress notes; I recommend SALES [employer]LOOR TEAM MEMBER evaluation as soon as possible. Family is reconsidering PEG placement. During last visit family did not approved it. Pt presents decubitus pressure ulcers stage I, according to last visit records, not mentioned in this visit yet. Pt shows no signs of concern for risk of malnutrition at the time, according to Physical Assessment History notes. Pt still on critical conditions and not able to perform ADLs, not a candidate for Nutrition Education. Percent of energy/protein needs met: Prescribed Cardiac/Consistent Carbohydrates Diet provides for energy/protein needs (1, 977 Kcal/86 g) during LOS. Burn Absent Trauma Absent GI Symptoms None Difficulty In Swallowing Food Allergy No Skin Integrity/Comment Pressure Ulcers stage I. Minimum of two criteria No #1 Nutrition Diagnosis Swallowing difficulty Comments: Pt is a high risk for aspiration, according to previous visits records and Progress notes; I recommend SALES FLOOR TEAM MEMBER evaluation as soon as possible. Etiology Uncertain As Evidenced by Signs and Symptoms Risk for aspiration. Is patient on ventilator? No Is Patient Ambulatory and/or Out of Bed No REE-([facility]-confined to bed) 987.336 Kcal/Kg value to use for calculation 27 Approximate Energy Requirements Using 1202 kcal/Kg Calculation Used for Recommendations Kcal/kg Additional Notes Protein: 1.2-2 g/Kg; 54-90 g/ day. Fluids: 1 ml/Kcal, or as per MD. Nutrition Intervention Change Diet Order: Modify Cardiac/Consistent Carbohydrates -Pureed- Diet; pending for SALES FLOOR TEAM MEMBER evaluation. Goal #1 Facilitate PO intake of meals with mechanical modification during LOS. Goal #2 Maintain body weight within +/ -3% of admission body weight during LOS. Follow-Up By: 09/04/21 Additional Comments Continue monitoring food tolerance, %PO intake of meals , and BM.
--- NOTE | 2021-09-02 14:04 | Progress Note ---
Assessment and Plan Cultures: Blood culture 08/31/2021 no growth so far A/P: 86-year-old female past medical history of stage renal disease, diabetes, hypertension #DKA: management per ICU team/primary #Recent COVID with HAP: completed antibiotics. Remains afebreile with a normal white count. Opacity on CXR can linger behind patient improvement. SHe is on room air #ESRD on HD: renally dose medications Recs: -Stopped antibiotics -If she develops worsening fevers ok to give renally dosed cefepime Thank you for the consult, we will continue to follow. Sully Metcalf MD [facility] O: [phone] F: [phone] Subjective Date of service: 09/02/21 Principal diagnosis: esrd Interval history: Afebrile, normal white count. No new issues. Objective - Exam Narrative Exam: Physical Exam: Constitutional: Alert, cooperative. No acute distress Head, Ears, Nose: Normocephalic, atraumatic. External ears, nose normal Eyes: Conjunctivae/corneas clear. No icterus. No ptosis. Neck: Supple, no meningeal signs Oral: dentition fair, no thrush Cardiovascular: S1, S2 normal. Respiratory: Good air entry, clear to auscultation bilaterally GI: Soft, non-tender; bowel sounds normal. No peritoneal signs. Musculoskeletal: No pedal edema, no cyanosis. Skin: No rash or abscess Hem/Lymphatic: No palpable cervical or supraclavicular nodes. No lymphangitis Psych: Mood ok. Affect normal Neurological: Awake, alert, oriented. No gross abnormality - Constitutional Vitals: Vital Signs Temp Pulse Resp BP Pulse Ox 98.6 F 109 H 20 137/105 100 09/02/21 12:00 09/02/21 12:50 09/02/21 12:50 09/02/21 12:50 09/02/21 12:50 Temperature -Last 24 Hours Temperature 98.6 F Temperature 99.0 F Temperature 99.2 F Temperature 99.3 F Temperature 98.4 F Temperature 98.2 F Temperature 98.3 F - Labs CBC & Chem 7: 09/02/21 04:17 09/02/21 04:17 Labs: Abnormal lab results 09/01/21 09/01/21 09/02/21 Range/Units 15:22 20:53 00:48 RBC (3.65-5.03) M/mm3 Hgb (10.1-14.3) gm/dl Hct (30.3-42.9) % RDW (13.2-15.2) % Plt Count (140-440) K/mm3 Sodium (137-145) mmol/L Potassium (3.6-5.0) mmol/L Chloride (98-107) mmol/L Carbon Dioxide (22-30) mmol/L BUN (7-17) mg/dL Creatinine (0.6-1.2) mg/dL Glucose (65-100) mg/dL POC Glucose 107 H 106 H 125 H (70-105) mg/dL Calcium (8.4-10.2) mg/dL 09/02/21 09/02/21 09/02/21 Range/Units 02:15 03:58 04:17 RBC 3.20 L (3.65-5.03) M/mm3 Hgb 9.8 L (10.1-14.3) gm/dl Hct 28.6 L (30.3-42.9) % RDW 19.8 H (13.2-15.2) % Plt Count 445 H (140-440) K/mm3 Sodium (137-145) mmol/L Potassium (3.6-5.0) mmol/L Chloride (98-107) mmol/L Carbon Dioxide (22-30) mmol/L BUN (7-17) mg/dL Creatinine (0.6-1.2) mg/dL Glucose (65-100) mg/dL POC Glucose 116 H 108 H (70-105) mg/dL Calcium (8.4-10.2) mg/dL 09/02/21 09/02/21 09/02/21 Range/Units 04:17 06:28 11:35 RBC (3.65-5.03) M/mm3 Hgb (10.1-14.3) gm/dl Hct (30.3-42.9) % RDW (13.2-15.2) % Plt Count (140-440) K/mm3 Sodium 130 L (137-145) mmol/L Potassium 3.5 L (3.6-5.0) mmol/L Chloride 95.0 L (98-107) mmol/L Carbon Dioxide 21 L (22-30) mmol/L BUN 41 H (7-17) mg/dL Creatinine 4.5 H (0.6-1.2) mg/dL Glucose 112 H (65-100) mg/dL POC Glucose 110 H 106 H (70-105) mg/dL Calcium 7.8 L (8.4-10.2) mg/dL
--- NOTE | 2021-09-02 17:24 | Gastroenterology Consultation ---
History of Present Illness - Reason for Consult Consult date: 09/02/21 Dysphagia Requesting physician: JUAN JOSÉ MCLAUGHLIN - History of Present Illness The patient is an 86 yo female recently discharged and readmitted for pneumonia. We are consulted about the possibiltiyy of aspiration leading to recurrent pneumonitis/pneumonia. She has been evaluated by ST and cleared for a pureeded diet with thin liquids. She has no blood in the stools or hemoptysis. There is no apparent epigastric pain or N/V. During her past hopsitalization, a PEG tube was discussed with the family and they declined. The patient is somewhat noncompliant with ST evaluation and unclear if due to language barrier or dementia. Past History Past Medical History: acute DE, arthritis, diabetes, dialysis, DVT, ESRD, heart failure, hypertension, migraines Past Surgical History: Other (Upper extremity fistula, right upper extremity fistula.) Social history: no significant social history Family history: no significant family history Medications and Allergies Allergies Allergy/AdvReac Type Severity Reaction Status Date / Time No Known Allergies Allergy Verified 08/25/21 09:27 Home Medications Medication Instructions Recorded Confirmed Last Taken Type amLODIPine 10 mg PO DAILY #30 tablet 01/31/20 08/25/21 Unknown Rx Diclofenac 1% [Diclofenac 1% 2 - 4 gm TP QID 08/12/21 08/25/21 Unknown History topical gel] Gabapentin 300 mg PO BID 08/12/21 08/25/21 Unknown History Mirtazapine [Remeron 15mg TAB] 15 mg PO QHS 08/12/21 08/25/21 Unknown History cloNIDine [Catapres] 0.1 mg PO BID 08/12/21 08/25/21 Unknown History Famotidine [Pepcid] 20 mg PO QAM #30 tablet 08/17/21 08/25/21 Unknown Rx Zinc Sulfate [Zinc] 220 mg PO BID #30 08/17/21 08/25/21 Unknown Rx Active Meds: Active Medications Acetaminophen (Acetaminophen 325 Mg Tab) 650 mg PO Q4H PRN PRN Reason: Pain MILD(1-3)/Fever >100.5/MEHTA Amlodipine Besylate (Amlodipine 5 Mg Tab) 5 mg PO QDAY ANAHY Last Admin: 09/02/21 15:48 Dose: 5 mg Dextrose (Dextrose 10% *Hypoglycemia) 0 ml IV PRN PRN PRN Reason: Hypoglycemia Famotidine (Famotidine 20 Mg/2 Ml Inj) 20 mg IV QDAY [facility] Last Admin: 09/02/21 10:48 Dose: 20 mg Heparin Sodium (Porcine) (Heparin 5,000 Unit/1 Ml Vial) 5,000 unit SUB-Q Q8HR [facility] Last Admin: 09/02/21 15:47 Dose: 5,000 unit Dextrose (D10w) 1,000 mls @ 30 mls/hr IV DIRECT [facility] Last Infusion: 09/02/21 15:47 Dose: Infused Sodium Chloride (Nacl 0.9%) 100 mls @ 999 mls/hr IV LEVI PRN PRN Reason: Hypotension Magnesium Hydroxide (Magnesium Hydroxide (Mom) Oral Liqd Udc) 30 ml PO Q4H PRN PRN Reason: Constipation Melatonin (Melatonin 5 Mg Tab) 5 mg PO QHS [facility] Morphine Sulfate (Morphine 2 Mg/1 Ml Inj) 2 mg IV Q4H PRN PRN Reason: Pain, Moderate (4-6) Morphine Sulfate (Morphine 4 Mg/1 Ml Inj) 4 mg IV Q4H PRN PRN Reason: Pain , Severe (7-10) Last Admin: 08/31/21 23:37 Dose: 4 mg Ondansetron HCl (Ondansetron 4 Mg/2 Ml Inj) 4 mg IV Q8H PRN PRN Reason: Nausea And Vomiting Paricalcitol (Paricalcitol 2 Mcg/1 Ml Inj) 2 mcg IV LEVI PRN PRN Reason: hemodialysis Senna (Sennosides 8.6 Mg Tab) 17.2 mg PO QHS [facility] Sodium Chloride (Sodium Chloride 0.9% 10 Ml Flush Syringe) 10 ml IV BID [facility] Last Admin: 09/02/21 10:49 Dose: 10 ml Sodium Chloride (Sodium Chloride 0.9% 10 Ml Flush Syringe) 10 ml IV PRN PRN PRN Reason: LINE FLUSH I HAVE REVIEWED/RECONCILED MEDICATIONS Review of Systems - Review of Systems ROS unobtainable: due to mental status Exam - Constitutional Vital Signs: Temp Pulse Resp BP Pulse Ox 98.6 F 110 H 20 139/97 99 09/02/21 12:00 09/02/21 17:01 09/02/21 16:01 09/02/21 17:01 09/02/21 15:51 General appearance: no acute distress - EENT Eyes: PERRL, EOM intact ENT: hearing intact, edentulous - Respiratory Respiratory effort: normal Respiratory: bilateral: CTA - Cardiovascular Rhythm: regular Heart Sounds: Present: S1 & S2 Extremities: no ischemia, No edema - Gastrointestinal General gastrointestinal: Present: soft, non-tender, non-distended - Integumentary Integumentary: Present: clear, warm, dry - Neurologic Neurological: other (At baseline) - Psychiatric Psychiatric: cooperative - Labs CBC & Chem 7: 09/02/21 04:17 09/02/21 04:17 Lab Results: Laboratory Results - last 24 hr 09/01/21 09/01/21 09/01/21 17:55 19:41 20:53 WBC RBC Hgb Hct MCV MCH MCHC RDW Plt Count Sodium Potassium Chloride Carbon Dioxide Anion Gap BUN Creatinine Estimated GFR BUN/Creatinine Ratio Glucose POC Glucose 79 81 106 H Calcium Phosphorus Magnesium Nasal Screen MRSA (PCR) 09/01/21 09/02/21 09/02/21 22:13 00:48 02:15 WBC RBC Hgb Hct MCV MCH MCHC RDW Plt Count Sodium Potassium Chloride Carbon Dioxide Anion Gap BUN Creatinine Estimated GFR BUN/Creatinine Ratio Glucose POC Glucose 99 125 H 116 H Calcium Phosphorus Magnesium Nasal Screen MRSA (PCR) 09/02/21 09/02/21 09/02/21 03:58 04:17 04:17 WBC 9.7 RBC 3.20 L Hgb 9.8 L Hct 28.6 L MCV 89 MCH 31 MCHC 34 RDW 19.8 H Plt Count 445 H Sodium 130 L Potassium 3.5 L Chloride 95.0 L Carbon Dioxide 21 L Anion Gap 18 BUN 41 H Creatinine 4.5 H Estimated GFR 9 BUN/Creatinine Ratio 9 Glucose 112 H POC Glucose 108 H Calcium 7.8 L Phosphorus 3.00 Magnesium 1.90 Nasal Screen MRSA (PCR) 09/02/21 09/02/21 09/02/21 06:28 08:30 11:35 WBC RBC Hgb Hct MCV MCH MCHC RDW Plt Count Sodium Potassium Chloride Carbon Dioxide Anion Gap BUN Creatinine Estimated GFR BUN/Creatinine Ratio Glucose POC Glucose 110 H 101 106 H Calcium Phosphorus Magnesium Nasal Screen MRSA (PCR) 09/02/21 12:45 WBC RBC Hgb Hct MCV MCH MCHC RDW Plt Count Sodium Potassium Chloride Carbon Dioxide Anion Gap BUN Creatinine Estimated GFR BUN/Creatinine Ratio Glucose POC Glucose Calcium Phosphorus Magnesium Nasal Screen MRSA (PCR) Negative Assessment and Plan - Patient Problems (1) Neurogenic dysphagia Current Visit: Yes Status: Acute Plan to address problem: - The patient appears to be at her baseline, and has been cleared by ST for PO intake. - The family has previously declined PEG tube. - I will call her grandsons to confirm the family's wishes, but at present I do not recommend a PEG tube or other assisted device.
[2021-09-02] MEDS: MELATONIN 5 MG TAB PO SCH (21:29)
[2021-09-02] MEDS: SENNOSIDES 8.6 MG TAB PO SCH (21:29)
[2021-09-03] MEDS: PARICALCITOL 2 MCG/1 ML INJ IV PRN (01:00)
[2021-09-03] MEDS: HEPARIN 5,000 UNIT/1 ML VIAL SUB-Q SCH ×3 (05:32→23:20)
[2021-09-03 06:28] LABS: Calcium 7.6 mg/dL (8.4-10.2)
[2021-09-03] MEDS: DEXTROSE 10% IN WATER 1,000 ML IV SCH (09:44)
[2021-09-03] MEDS: FAMOTIDINE 20 MG/2 ML INJ IV SCH (09:45)
[2021-09-03] MEDS: amLODIPine 5 MG TAB PO SCH (09:45)
--- NOTE | 2021-09-03 11:43 | Progress Note ---
Assessment and Plan Cultures: Blood culture 08/31/2021 no growth so far A/P: 86-year-old female past medical history of stage renal disease, diabetes, hypertension #DKA: management per ICU team/primary #Recent COVID with HAP: completed antibiotics. Remains afebreile with a normal white count. Opacity on CXR can linger behind patient improvement. SHe is on room air #ESRD on HD: renally dose medications #Sacral wound: does not appear to be infected. Recs: -No need for antibiotics at the present time. -If she develops worsening fevers ok to give renally dosed cefepime Thank you for the consult, we will continue to follow. Sully Metcalf MD [facility] ([facility]) O: [phone] F: [phone] Subjective Date of service: 09/03/21 Principal diagnosis: esrd Interval history: Afebrile, normal whtie count. Objective - Exam Narrative Exam: Physical Exam: Constitutional: Alert, cooperative. No acute distress Head, Ears, Nose: Normocephalic, atraumatic. External ears, nose normal Eyes: Conjunctivae/corneas clear. No icterus. No ptosis. Neck: Supple, no meningeal signs Oral: dentition fair, no thrush Cardiovascular: S1, S2 normal. Respiratory: Good air entry, clear to auscultation bilaterally GI: Soft, non-tender; bowel sounds normal. No peritoneal signs. Musculoskeletal: No pedal edema, no cyanosis. Skin: No rash or abscess Hem/Lymphatic: No palpable cervical or supraclavicular nodes. No lymphangitis Psych: Mood ok. Affect normal Neurological: Awake, alert, oriented. No gross abnormality - Constitutional Vitals: Vital Signs Temp Pulse Resp BP Pulse Ox 98.2 F 92 H 16 140/72 96 09/03/21 04:50 09/03/21 06:00 09/03/21 06:00 09/03/21 04:50 09/03/21 10:00 Temperature -Last 24 Hours Temperature 98.2 F Temperature 98.0 F Temperature 98.2 F Temperature 98.6 F - Labs CBC & Chem 7: 09/02/21 04:17 09/03/21 05:51 Labs: Abnormal lab results 09/03/21 09/03/21 Range/Units 05:02 05:51 Potassium 3.3 L (3.6-5.0) mmol/L Chloride 97.4 L (98-107) mmol/L Creatinine 2.0 H D (0.6-1.2) mg/dL Glucose 120 H (65-100) mg/dL POC Glucose 115 H (70-105) mg/dL Calcium 7.6 L (8.4-10.2) mg/dL
--- NOTE | 2021-09-03 12:13 | Progress Note ---
Subjective Date of service: 09/03/21 Principal diagnosis: esrd Interval history: Impression * End-stage renal disease on maintenance hemodialysis * Acute hypoxic respiratory failure * COVID-19 pneumonia * Hypokalemia * hypoglycemia * Hyponatremia * Anemia secondary to ESRD * Diabetes * Hypertension * Hypocalcemia Recommendations * Continue hemodialysis MWF or prn * UF as tolerated * Maintain MAP>65 - pressors prn * Antibiotic therapy as per primary team and infectious diseases * Adjust diet and meds for ESRD state * Epogen with dialysis * No IV, BP or venipuncture in her access arm * Avoid nephrotoxins * Monitor fluid status and electrolytes closely * KALA Rea outpatient * needs Hospice/palliative care discussion, 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 Subjective Principal diagnosis: AHRF; Sepsis; Possible Aspiration; AMS; ESRD; HFpEF; Leukoc ytosis Interval history: Resting in bed, no acute issues issues noted Objective - Exam Narrative Exam: Patient not directly examined today due to COVID-19 pandemic, need to limit PPE overuse Objective - Vital Signs Vital signs: Vital Signs - 12hr 09/03/21 09/03/21 09/03/21 00:15 00:30 00:45 Temperature Pulse Rate 117 H 80 116 H Pulse Rate [ From Monitor] Respiratory Rate Blood Pressure 106/47 116/27 91/27 O2 Sat by Pulse Oximetry O2 Sat by Pulse Oximetry [ Throughout] 09/03/21 09/03/21 09/03/21 01:00 01:30 02:00 Temperature 98.0 F Pulse Rate 116 H 115 H Pulse Rate [ 96 H From Monitor] Respiratory 18 18 Rate Blood Pressure 100/48 144/50 O2 Sat by Pulse 100 Oximetry O2 Sat by Pulse 99 Oximetry [ Throughout] 09/03/21 09/03/21 09/03/21 04:49 04:50 06:00 Temperature 98.2 F Pulse Rate 60 Pulse Rate [ 92 H From Monitor] Respiratory 18 16 Rate Blood Pressure 140/72 140/72 O2 Sat by Pulse 59 L 89 100 Oximetry O2 Sat by Pulse Oximetry [ Throughout] 09/03/21 10:00 Temperature Pulse Rate Pulse Rate [ From Monitor] Respiratory Rate Blood Pressure O2 Sat by Pulse 96 Oximetry O2 Sat by Pulse Oximetry [ Throughout] - Lab 09/02/21 04:17 09/03/21 05:51 Most recent lab results Calcium 7.6 mg/dL (8.4-10.2) L 09/03/21 05:51 Phosphorus 3.00 mg/dL (2.5-4.5) 09/02/21 04:17 Magnesium 1.90 mg/dL (1.7-2.3) 09/02/21 04:17 Medications & Allergies - Medications Allergies/Adverse Reactions: Allergies No Known Allergies Allergy (Verified 08/25/21 09:27) Home Medications: Home Medications Medication Instructions Recorded Confirmed Last Taken Type amLODIPine 10 mg PO DAILY #30 tablet 01/31/20 09/03/21 Unknown Rx Diclofenac 1% [Diclofenac 1% 2 - 4 gm TP QID 08/12/21 09/03/21 Unknown History topical gel] Gabapentin 300 mg PO BID 08/12/21 09/03/21 Unknown History Mirtazapine [Remeron 15mg TAB] 15 mg PO QHS 08/12/21 09/03/21 Unknown History cloNIDine [Catapres] 0.1 mg PO BID 08/12/21 09/03/21 Unknown History Famotidine [Pepcid] 20 mg PO QAM #30 tablet 08/17/21 09/03/21 Unknown Rx Zinc Sulfate [Zinc] 220 mg PO BID #30 08/17/21 09/03/21 Unknown Rx Active Medications: Generic Name Dose Route Start Last Admin Trade Name Freq PRN Reason Stop Dose Admin Acetaminophen 650 mg 08/31/21 22:00 Acetaminophen 325 Mg Tab PO Q4H PRN Pain MILD(1-3)/Fever >100.5/MEHTA Amlodipine Besylate 5 mg 09/02/21 10:00 09/03/21 09:45 Amlodipine 5 Mg Tab PO 5 mg QDAY ANAHY Administration Dextrose 0 ml 08/31/21 22:34 Dextrose 10% *Hypoglycemia IV PRN PRN Hypoglycemia Famotidine 20 mg 09/02/21 10:00 09/03/21 09:45 Famotidine 20 Mg/2 Ml Inj IV 20 mg QDAY ANAHY Administration Heparin Sodium (Porcine) 5,000 unit 09/01/21 06:00 09/03/21 05:32 Heparin 5,000 Unit/1 Ml Vial SUB-Q 5,000 unit Q8HR ANAHY Administration Dextrose 1,000 mls @ 30 mls/hr 08/31/21 22:00 09/03/21 09:44 D10w IV 30 mls/hr DIRECT ANAHY Administration Sodium Chloride 100 mls @ 999 mls/hr 09/01/21 09:37 Nacl 0.9% IV LEVI PRN Hypotension Magnesium Hydroxide 30 ml 08/31/21 22:00 Magnesium Hydroxide (Mom) Oral Liqd Udc PO Q4H PRN Constipation Melatonin 5 mg 09/02/21 22:00 09/02/21 21:29 Melatonin 5 Mg Tab PO 5 mg QHS ANAHY Administration Ondansetron HCl 4 mg 08/31/21 22:00 Ondansetron 4 Mg/2 Ml Inj IV Q8H PRN Nausea And Vomiting Paricalcitol 2 mcg 09/01/21 09:37 09/03/21 01:00 Paricalcitol 2 Mcg/1 Ml Inj IV 2 mcg LEVI PRN Administration hemodialysis Senna 17.2 mg 09/02/21 22:00 09/02/21 21:29 Sennosides 8.6 Mg Tab PO 17.2 mg QHS ANAHY Administration Sodium Chloride 10 ml 08/31/21 22:00 09/03/21 09:44 Sodium Chloride 0.9% 10 Ml Flush Syringe IV 10 ml BID ANAHY Administration Sodium Chloride 10 ml 08/31/21 22:00 Sodium Chloride 0.9% 10 Ml Flush Syringe IV PRN PRN LINE FLUSH
--- NOTE | 2021-09-03 13:09 | Electrocardiograph Report ---
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
--- NOTE | 2021-09-03 13:44 | Gastroenterology Progress Note ---
Assessment and Plan - Patient Problems (1) Neurogenic dysphagia Current Visit: Yes Status: Acute Plan to address problem: - The patient appears to be at her baseline, and has been cleared by ST for PO intake. - The family has previously declined PEG tube. - I discussed with grandcarol Caro, who confirms that they only want a feeding tube if the mother can no longer eat; they prefer to feed her at home. She is at risk for further aspiration events, but for now, will defer PEG per their wishes. We will sign off; please call if needed. Subjective Date of service: 09/03/21 Principal diagnosis: Dysphagia Interval history: The patient has done OK with her pureed diet without N/V and denies pain. Objective - Constitutional Vitals: Temp Pulse Resp BP Pulse Ox 98.2 F 92 H 16 140/72 96 09/03/21 04:50 09/03/21 06:00 09/03/21 06:00 09/03/21 04:50 09/03/21 10:00 General appearance: no acute distress - Respiratory Respiratory effort: normal Respiratory: bilateral: CTA - Cardiovascular Rhythm: regular Heart Sounds: Present: S1 & S2 - Gastrointestinal General gastrointestinal: Present: soft, non-tender, non-distended - Labs CBC & Chem 7: 09/02/21 04:17 09/03/21 05:51 Labs: Laboratory Results - last 24 hr 09/02/21 09/03/21 09/03/21 12:45 05:02 05:51 Sodium 138 D Potassium 3.3 L Chloride 97.4 L Carbon Dioxide 29 D Anion Gap 15 BUN 11 Creatinine 2.0 H D Estimated GFR 24 BUN/Creatinine Ratio 6 Glucose 120 H POC Glucose 115 H Calcium 7.6 L Nasal Screen MRSA (PCR) Negative 09/03/21 11:56 Sodium Potassium Chloride Carbon Dioxide Anion Gap BUN Creatinine Estimated GFR BUN/Creatinine Ratio Glucose POC Glucose 140 H Calcium Nasal Screen MRSA (PCR)
--- NOTE | 2021-09-03 15:26 | Progress Note ---
Assessment and Plan Assessment and plan: #Hypoglycemia #H/o Diabetes - most likely due to low PO intake and patient was still received PO glycemic regimen at home - family educated and will not resume meds at home - BG improved on D10w - started pureed diet #Right Basilar Pneumonia ruled out #Possible Aspiration #Recently treated for COVID Pneumonia - Chest x-ray shows a right basilar opacification which could represent pneumonia - Patient remains stable on RA, SPO2 above 95% - Patient remains afebrile, WBCs normal - Blood culture with NGTD - IV Abx held per ID - O2 supplemetation as needed - Continue SPO2 monitoring for SPO2 goal above 92% - Continue to F/U on culture data #Poor Oral Intake #Dysphagia - family reported poor oral intake at home - Per nursing staffs patient is coughing with PO intake - pureed diet per ST eval - GI evaluated patient for PEG, will discuss with family #ESRD (End stage Renal Disease) on Dialysis #Hypokalemia #Hyponatremia - Nephrology on consult, appreciated recommendation - Continue HD per Nephro - Strict intake and output - Avoid nephrotoxic medications; Renally dose medications #HTN (Hypertension), benign - Home antihypertensive regimen resumed - Continue blood pressure monitor per protocol - Maintain SBP less than 160 #Anemia secondary to ESRD - H&H is stable - Continue to trend CBC - Epogen with HD per Nephro #GI/DVT Prophylaxis - PPI- Pepcid - Continue AC- Heparin SubQ - SCDs to bilateral lower extremities while in bed History Interval history: No acute events overnight. Patient does not speak Dutch. Attempted conversation via blue phone. Patient did not participate in interview. Hospitalist Physical - Physical exam Narrative exam: GENERAL: Well-developed well-nourished. In no acute distress. HEENT: Normocephalic. Atraumatic. CHEST/LUNGS: CTAB on room air HEART/CARDIOVASCULAR: RRR. +4/6 murmur ABDOMEN: +BS. NT/ND. SKIN: No rashes noted. NEURO: No focal motor deficit appreciated MUSCULOSKELETAL: No joint effusion EXTREMITIES: LUE AVF w/ thrill. No cyanosis, clubbing or edema. PSYCH: Unable to assess. - Constitutional Vitals: Temp Pulse Resp BP Pulse Ox 101.0 F H 113 H 18 162/59 96 09/03/21 11:59 09/03/21 11:59 09/03/21 11:59 09/03/21 11:59 09/03/21 11:59 General appearance: Present: no acute distress, well-nourished Results - Labs CBC & Chem 7: 09/02/21 04:17 09/03/21 05:51 Labs: Laboratory Last Values WBC 9.7 K/mm3 (4.5-11.0) 09/02/21 04:17 RBC 3.20 M/mm3 (3.65-5.03) L 09/02/21 04:17 Hgb 9.8 gm/dl (10.1-14.3) L 09/02/21 04:17 Hct 28.6 % (30.3-42.9) L 09/02/21 04:17 MCV 89 fl (79-97) 09/02/21 04:17 MCH 31 pg (28-32) 09/02/21 04:17 MCHC 34 % (30-34) 09/02/21 04:17 RDW 19.8 % (13.2-15.2) H 09/02/21 04:17 Plt Count 445 K/mm3 (140-440) H 09/02/21 04:17 Lymph % (Auto) 11.0 % (13.4-35.0) L 08/31/21 18:26 [place] % (Auto) 5.1 % (0.0-7.3) 08/31/21 18:26 Eos % (Auto) 2.8 % (0.0-4.3) 08/31/21 18:26 Baso % (Auto) 0.6 % (0.0-1.8) 08/31/21 18:26 Lymph # (Auto) 1.1 K/mm3 (1.2-5.4) L 08/31/21 18:26 [place] # (Auto) 0.5 K/mm3 (0.0-0.8) 08/31/21 18:26 Eos # (Auto) 0.3 K/mm3 (0.0-0.4) 08/31/21 18:26 Baso # (Auto) 0.1 K/mm3 (0.0-0.1) 08/31/21 18:26 Seg Neutrophils % 80.5 % (40.0-70.0) H 08/31/21 18:26 Seg Neutrophils # 7.8 K/mm3 (1.8-7.7) H 08/31/21 18:26 Sodium 138 mmol/L (137-145) D 09/03/21 05:51 Potassium 3.3 mmol/L (3.6-5.0) L 09/03/21 05:51 Chloride 97.4 mmol/L (98-107) L 09/03/21 05:51 Carbon Dioxide 29 mmol/L (22-30) D 09/03/21 05:51 Anion Gap 15 mmol/L 09/03/21 05:51 BUN 11 mg/dL (7-17) 09/03/21 05:51 Creatinine 2.0 mg/dL (0.6-1.2) H D 09/03/21 05:51 Estimated GFR 24 ml/min 09/03/21 05:51 BUN/Creatinine Ratio 6 % 09/03/21 05:51 Glucose 120 mg/dL (65-100) H 09/03/21 05:51 POC Glucose 140 mg/dL (70-105) H 09/03/21 11:56 Calcium 7.6 mg/dL (8.4-10.2) L 09/03/21 05:51 Phosphorus 3.00 mg/dL (2.5-4.5) 09/02/21 04:17 Magnesium 1.90 mg/dL (1.7-2.3) 09/02/21 04:17 NT-Pro-B Natriuret Pep 45043 pg/mL (0-900) H 08/31/21 20:18 Nasal Screen MRSA (PCR) Negative (Negative) 09/02/21 12:45 Hepatitis A IgM Ab Non-reactive (NonReactive) 09/01/21 11:02 Hep Bs Antigen Non-reactive (Negative) 09/01/21 11:02 Hep B Core IgM Ab Non-reactive (NonReactive) 09/01/21 11:02 Hepatitis C Antibody Non-reactive (NonReactive) 09/01/21 11:02 Microbiology: Microbiology 08/31/21 20:25 Peripheral/Venous Blood Culture - Preliminary NO GROWTH AFTER 48 HOURS 08/31/21 20:18 Peripheral/Venous Blood Culture - Preliminary NO GROWTH AFTER 48 HOURS [place]/IV: Voiding Method Incontinent Active Medications - Current Medications Current Medications: Generic Name Dose Route Start Last Admin Trade Name Freq PRN Reason Stop Dose Admin Acetaminophen 650 mg 08/31/21 22:00 Acetaminophen 325 Mg Tab PO Q4H PRN Pain MILD(1-3)/Fever >100.5/MEHTA Amlodipine Besylate 5 mg 09/02/21 10:00 09/03/21 09:45 Amlodipine 5 Mg Tab PO 5 mg QDAY ANAHY Administration Dextrose 0 ml 08/31/21 22:34 Dextrose 10% *Hypoglycemia IV PRN PRN Hypoglycemia Famotidine 20 mg 09/02/21 10:00 09/03/21 09:45 Famotidine 20 Mg/2 Ml Inj IV 20 mg QDAY ANAHY Administration Heparin Sodium (Porcine) 5,000 unit 09/01/21 06:00 09/03/21 13:26 Heparin 5,000 Unit/1 Ml Vial SUB-Q 5,000 unit Q8HR ANAHY Administration Dextrose 1,000 mls @ 30 mls/hr 08/31/21 22:00 09/03/21 09:44 D10w IV 30 mls/hr DIRECT ANAHY Administration Sodium Chloride 100 mls @ 999 mls/hr 09/01/21 09:37 Nacl 0.9% IV LEVI PRN Hypotension Magnesium Hydroxide 30 ml 08/31/21 22:00 Magnesium Hydroxide (Mom) Oral Liqd Udc PO Q4H PRN Constipation Melatonin 5 mg 09/02/21 22:00 09/02/21 21:29 Melatonin 5 Mg Tab PO 5 mg QHS ANAHY Administration Ondansetron HCl 4 mg 08/31/21 22:00 Ondansetron 4 Mg/2 Ml Inj IV Q8H PRN Nausea And Vomiting Paricalcitol 2 mcg 09/01/21 09:37 09/03/21 01:00 Paricalcitol 2 Mcg/1 Ml Inj IV 2 mcg LEVI PRN Administration hemodialysis Senna 17.2 mg 09/02/21 22:00 09/02/21 21:29 Sennosides 8.6 Mg Tab PO 17.2 mg QHS ANAHY Administration Sodium Chloride 10 ml 08/31/21 22:00 09/03/21 09:44 Sodium Chloride 0.9% 10 Ml Flush Syringe IV 10 ml BID ANAHY Administration Sodium Chloride 10 ml 08/31/21 22:00 Sodium Chloride 0.9% 10 Ml Flush Syringe IV PRN PRN LINE FLUSH Nutrition/Malnutrition Assess - Dietary Evaluation Nutrition/Malnutrition Findings: Nutrition Notes Start: 09/01/21 14:11 Freq: Status: Active Protocol: Document 09/01/21 14:11 MIGUEL ANGEL (Rec: 09/01/21 15:04 MIGUEL ANGEL [id number]) Nutrition Notes Need for Assessment generated from: MD Order,bulb inspector,MST, Education Initial or Follow up Assessment Current Diagnosis CKD (stage V CKD),Diabetes, Hypertension,Heart Failure Other Pertinent Diagnosis Hypoglycemia, HFpEF, R-Pleural Effusion, s/p COVID-19, Risk for Aspiration. Current Diet Cardiac/Consistent Carbohydrates Diet (since B ). Labs/Tests 09/01: Na 131, Cl 94.3, BUN 42 , Crea 4.7, Ca 8.0. Pertinent Medications 09/01: D10w 1000 ml @ 50 ml/hr , others nutritionally unremarkable. 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 NOTE: Last visit on 08/19/2021 to 08/28/2021, record shows Pt's Ht: 5' 2" and Wt: 74.8 Kg . Weight Status Appropriate Subjective/Other Information RD consult for skin risk, risk of malnutrition, and nutrition education. No reports available on Pt's PO intake of meals at the time . Pt is a high risk for aspiration, according to previous visits records and Progress notes; I recommend HORSE GROOMER evaluation as soon as possible. Family is reconsidering PEG placement. During last visit family did not approved it. Pt presents decubitus pressure ulcers stage I, according to last visit records, not mentioned in this visit yet. Pt shows no signs of concern for risk of malnutrition at the time, according to Physical Assessment History notes. Pt still on critical conditions and not able to perform ADLs, not a candidate for Nutrition Education. Percent of energy/protein needs met: Prescribed Cardiac/Consistent Carbohydrates Diet provides for energy/protein needs (1, 977 Kcal/86 g) during LOS. Burn Absent Trauma Absent GI Symptoms None Difficulty In Swallowing Food Allergy No Skin Integrity/Comment Pressure Ulcers stage I. Minimum of two criteria No #1 Nutrition Diagnosis Swallowing difficulty Comments: Pt is a high risk for aspiration, according to previous visits records and Progress notes; I recommend HORSE GROOMER evaluation as soon as possible. Etiology Uncertain As Evidenced by Signs and Symptoms Risk for aspiration. Is patient on ventilator? No Is Patient Ambulatory and/or Out of Bed No REE-([facility]-confined to bed) [phone] Kcal/Kg value to use for calculation 27 Approximate Energy Requirements Using 1202 kcal/Kg Calculation Used for Recommendations Kcal/kg Additional Notes Protein: 1.2-2 g/Kg; 54-90 g/ day. Fluids: 1 ml/Kcal, or as per MD. Nutrition Intervention Change Diet Order: Modify Cardiac/Consistent Carbohydrates -Pureed- Diet; pending for HORSE GROOMER evaluation. Goal #1 Facilitate PO intake of meals with mechanical modification during LOS. Goal #2 Maintain body weight within +/ -3% of admission body weight during LOS. Follow-Up By: 09/04/21 Additional Comments Continue monitoring food tolerance, %PO intake of meals , and BM.
[2021-09-03] MEDS ORDERED: hydrALAZINE 20 MG/1 ML INJ IV ONE (19:47)
[2021-09-03] MEDS: SENNOSIDES 8.6 MG TAB PO SCH (22:25)
[2021-09-03] MEDS: MELATONIN 5 MG TAB PO SCH (22:25)
[2021-09-04] MEDS: HEPARIN 5,000 UNIT/1 ML VIAL SUB-Q SCH ×2 (05:49→14:00)
--- NOTE | 2021-09-04 07:36 | Discharge Summary ---
Providers - Providers Date of Admission: 08/31/21 22:00 Attending physician: MADHU DHILLON MD 08/31/21 21:36 Consult to Physician [CONS] Urgent Comment: Consulting Provider: VINI TOMAS Physician Instructions: Reason For Exam: missed dialysis due to hypoglycemia 08/31/21 22:00 Consult to Dietitian/Nutrition [CONS] Routine Physician Instructions: Reason For Exam: Reason for Consult: Diet education 08/31/21 22:10 Consult to Physician [CONS] Routine Comment: Consulting Provider: SIGRID TRENT Physician Instructions: Reason For Exam: Covid 19 pneumonia 09/01/21 18:26 Consult to Physician [CONS] Routine Comment: call office/[place] Consulting Provider: RYLAND JACOBS Physician Instructions: Reason For Exam: PEG Tube insertion 09/01/21 19:03 Speech Therapy Evaluation and Treat [CONS] Routine Reason For Exam: possible aspiration 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 Feed slow. Please only take the medications given to you at this discharge. Follow-up with your primary care doctor and bring a copy of your updated medications. Follow up with: PRIMARY CARE, [Primary Care Provider] - 3-5 Days Prescriptions: Mirtazapine [Remeron 15mg TAB] 15 mg PO QHS 30 Days #30 tab amLODIPine 10 mg PO DAILY 30 Days #30 tablet cloNIDine [Catapres] 0.1 mg PO BID 30 Days #60 tab Gabapentin 300 mg PO BID 30 Days #60 cap Famotidine [Pepcid] 20 mg PO QAM 30 Days #30 tablet
[2021-09-04] MEDS: amLODIPine 5 MG TAB PO SCH (09:13)
[2021-09-04] MEDS: FAMOTIDINE 20 MG/2 ML INJ IV SCH (09:13)
[2021-09-04] MEDS: PARICALCITOL 2 MCG/1 ML INJ IV PRN (12:59)
--- NOTE | 2021-09-04 14:07 | Progress Note ---
Assessment and Plan Cultures: Blood culture 08/31/2021 no growth so far A/P: 86-year-old female past medical history of stage renal disease, diabetes, hypertension #DKA: management per ICU team/primary #Recent COVID with HAP: completed antibiotics. Remains afebreile with a normal white count. Opacity on CXR can linger behind patient improvement. SHe is on room air #ESRD on HD: renally dose medications #Sacral wound: does not appear to be infected. Recs: -No need for antibiotics at the present time. Thank you for the consult, we will continue to follow. Sully Metcalf MD [facility] ([facility]) O: [phone] F: [phone] Subjective Date of service: 09/04/21 Principal diagnosis: Dysphagia Interval history: Afebrile overnight, normal white count. No new issues. Objective - Exam Narrative Exam: Physical Exam: Constitutional: Alert, cooperative. No acute distress Head, Ears, Nose: Normocephalic, atraumatic. External ears, nose normal Eyes: Conjunctivae/corneas clear. No icterus. No ptosis. Neck: Supple, no meningeal signs Oral: dentition fair, no thrush Cardiovascular: S1, S2 normal. Respiratory: Good air entry, clear to auscultation bilaterally GI: Soft, non-tender; bowel sounds normal. No peritoneal signs. Musculoskeletal: No pedal edema, no cyanosis. Skin: No rash or abscess Hem/Lymphatic: No palpable cervical or supraclavicular nodes. No lymphangitis Psych: Mood ok. Affect normal Neurological: Awake, alert, oriented. No gross abnormality - Constitutional Vitals: Vital Signs Temp Pulse Resp BP Pulse Ox 98.5 F 80 18 103/39 100 09/04/21 10:15 09/04/21 13:00 09/04/21 10:15 09/04/21 13:00 09/04/21 10:15 Temperature -Last 24 Hours Temperature 98.5 F Temperature 98.5 F Temperature 98.3 F Temperature 99.5 F - Labs CBC & Chem 7: 09/02/21 04:17 09/03/21 05:51 Labs: Abnormal lab results 09/03/21 09/03/21 Range/Units 18:00 21:37 POC Glucose 140 H 147 H (70-105) mg/dL
[2021-09-04 14:54] VITALS: BP 153/43
== END 2021-09-04 16:16 | disposition home health service (06) | DRG 637 ==
LOC: ED 17:50 → 3A 22:00 → CC1 09-01 04:57 → 3A 09-02 18:01
PROVIDERS: ADMIT Internal Medicine Geriatric Medicine; ATTEND Student in an Organized Health Care Education/Training Program
PROC: 5A1D70Z Performance of Urinary Filtration, Intermittent, Less than 6 Hours Per Day (ICD-10-PCS; principal; 2021-09-02)
PROC: 5A1D70Z Performance of Urinary Filtration, Intermittent, Less than 6 Hours Per Day (ICD-10-PCS; 2021-09-04)
DX: E11.10 Type 2 diabetes mellitus with ketoacidosis without coma (principal); N18.6 End stage renal disease; J96.01 Acute respiratory failure with hypoxia; E87.1 Hypo-osmolality and hyponatremia; I13.2 Hypertensive heart and chronic kidney disease with heart failure and with stage 5 chronic kidney disease, or end stage renal disease; D63.1 Anemia in chronic kidney disease; E11.22 Type 2 diabetes mellitus with diabetic chronic kidney disease; E87.6 Hypokalemia; I50.9 Heart failure, unspecified; M19.90 Unspecified osteoarthritis, unspecified site; G43.909 Migraine, unspecified, not intractable, without status migrainosus; E11.649 Type 2 diabetes mellitus with hypoglycemia without coma; E83.51 Hypocalcemia; R13.19 Other dysphagia; I25.2 Old myocardial infarction; Z86.16 Personal history of COVID-19
CPT/HCPCS: 36415; 71045; 80048; 80074; 82962; 83735; 83880; 84100; 85025; 85027; 87040; 87641; 93005; 93010; G0378; J3480; J3490; J0360; J0692; J1644; J2001; J2270; J2501; J3370

== ENCOUNTER 2022-01-08 11:27 | Emergency (ER) | payer MEDICARE ==
--- NOTE | 2022-01-08 12:24 | Emergency Department Report ---
ED CPR HPI - General Chief Complaint: Cardiac Arrest/CPR Stated Complaint: CARDIAC ARREST Time Seen by Provider: 01/08/22 12:08 Source: EMS Mode of arrival: Stretcher Limitations: Altered Mental Status, Physical Limitation - History of Present Illness Initial Comments: 86-year-old female with a past medical history of end-stage renal disease on dialysis presents to the hospital in cardiopulmonary arrest. Circumstances regarding cardiac arrest unclear. Patient was apparently unresponsive in the presence of dialysis transport crew. EMS was dispatched at 2:34 AM. First unit at the scene at 10:45 AM and transporting unit prior resident at 10:55 AM. At 10:55 AM patient was pulseless in PEA. Patient was intubated with 7.0 ET tube. Right IO placed with administration of epi x3 and 1 amp of sodium bicarb. Glucose 200. Patient presents pulseless and apneic with CPR in progress. MD Complaint: found unresponsive - Related Data Home Medications Medication Instructions Recorded Confirmed Last Taken Diclofenac 1% [Diclofenac 1% 2 - 4 gm TP QID 08/12/21 09/03/21 Unknown topical gel] Previous Rx's Medication Instructions Recorded Last Taken Type Zinc Sulfate [Zinc] 220 mg PO BID #30 08/17/21 Unknown Rx Famotidine [Pepcid] 20 mg PO QAM 30 Days #30 tablet 09/04/21 Unknown Rx Gabapentin 300 mg PO BID 30 Days #60 cap 09/04/21 Unknown Rx Mirtazapine [Remeron 15mg TAB] 15 mg PO QHS 30 Days #30 tab 09/04/21 Unknown Rx amLODIPine 10 mg PO DAILY 30 Days #30 tablet 09/04/21 Unknown Rx cloNIDine [Catapres] 0.1 mg PO BID 30 Days #60 tab 09/04/21 Unknown Rx Allergies Allergy/AdvReac Type Severity Reaction Status Date / Time No Known Allergies Allergy Verified 09/03/21 13:41 ED Review of Systems ROS: Stated complaint: CARDIAC ARREST Other details as noted in HPI Comment: Unobtainable due to pts medical conditions ED Past Medical Hx - Past Medical History Hx Hypertension: Yes Hx Heart Attack/AMI: Yes Hx Congestive Heart Failure: Yes Hx Diabetes: Yes Hx Deep Vein Thrombosis: Yes Hx Renal Disease: Yes (ESRD) Hx Arthritis: Yes Hx Headaches / Migraines: Yes (CHRONIC) Additional medical history: Heart failure 08/2018, Pulmonary edema 08/2018 - Surgical History Additional Surgical History: Left upper extremity fistula, right upper extremity fistula - Social History Smoking Status: Never Smoker - Medications Home Medications: Home Medications Medication Instructions Recorded Confirmed Last Taken Type Diclofenac 1% [Diclofenac 1% 2 - 4 gm TP QID 08/12/21 09/03/21 Unknown History topical gel] Zinc Sulfate [Zinc] 220 mg PO BID #30 08/17/21 09/03/21 Unknown Rx Famotidine [Pepcid] 20 mg PO QAM 30 Days #30 tablet 09/04/21 Unknown Rx Gabapentin 300 mg PO BID 30 Days #60 cap 09/04/21 Unknown Rx Mirtazapine [Remeron 15mg TAB] 15 mg PO QHS 30 Days #30 tab 09/04/21 Unknown Rx amLODIPine 10 mg PO DAILY 30 Days #30 tablet 09/04/21 Unknown Rx cloNIDine [Catapres] 0.1 mg PO BID 30 Days #60 tab 09/04/21 Unknown Rx ED Physical Exam - General Limitations: No Limitations - Other Other exam information: General: Unresponsive Head: Atraumatic Eyes: Pupils unresponsive ENT: Orally intubated 7.0 ET tube Neck: Normal appearance, no midline tenderness Chest: Apneic, clear with auscultation bilaterally, equal breath sounds CV: Pulseless Abdomen: Nondistended Back: Normal inspection Extremity: Right leg IO Neuro: GCS equals 3 Skin: Warm to touch ED Course - Reevaluation(s) Reevaluation #1: 01/08/22 Resuscitation efforts continued upon patient arrival to the ED. Patient received epinephrine x2, sodium bicarb x1, and calcium gluconate with return of spontaneous circulation. This was brief and patient returned to PEA. She received a subsequent dose of epinephrine and remained in slow PEA. Time of 11:34 AM. Please refer to code sheet ED Medical Decision Making - Medical Decision Making 86-year-old female presents with cardiopulmonary arrest. Patient had extended period of pulselessness with only a brief episode of return of spontaneous circulation. Time of 11:34 AM pt's son accompanied by [place]-speaking friend who was able to translate. He was informed of patient's Critical Care Time: Yes Critical care time in (mins) excluding proc time.: 15 Critical care attestation.: If time is entered above; I have spent that time in minutes in the direct care of this critically ill patient, excluding procedure time. ED Disposition Clinical Impression: Cardiopulmonary arrest Disposition: Is pt being admited?: No Condition: Stable Time of Disposition: 12:25
[2022-01-08] MEDS ORDERED: CALCIUM CHLORIDE 1,000 MG/10 ML SYRINGE IV ONE (21:30)
[2022-01-08] MEDS ORDERED: SODIUM BICARB 8.4% 50 MEQ/50 ML SYRINGE IV ONE (21:30)
[2022-01-08] MEDS ORDERED: EPINEPHrine 1 MG/10 ML SYRINGE ONE (21:30)
== END 2022-01-08 18:42 ==
LOC: ED 11:27
DX: I46.9 Cardiac arrest, cause unspecified (principal); I13.2 Hypertensive heart and chronic kidney disease with heart failure and with stage 5 chronic kidney disease, or end stage renal disease; I50.9 Heart failure, unspecified; E11.22 Type 2 diabetes mellitus with diabetic chronic kidney disease; N18.6 End stage renal disease; M19.90 Unspecified osteoarthritis, unspecified site; G43.909 Migraine, unspecified, not intractable, without status migrainosus; Z86.718 Personal history of other venous thrombosis and embolism; Z79.899 Other long term (current) drug therapy
CPT/HCPCS: 92950; 99285; J0171; J3490